=== PATIENT | male | born 1950 | race Caucasian/White ===

== ENCOUNTER 2022-12-04 11:59 | Emergency (ER) | payer MEDICARE, OTHER, SELFPAY ==
[2022-12-04 12:13] VITALS: BP 129/71; PULSE 65; RESP 16; TEMP 37.1; O2SAT 97; BMI 28.8
== END 2022-12-04 13:54 | disposition left against medical advice (07) ==
PROVIDERS: Emergency Provider Emergency Medicine; PCP Nurse Practitioner Family
DX: Z53.21 Procedure and treatment not carried out due to patient leaving prior to being seen by health care provider (principal)

== ENCOUNTER 2022-12-04 14:48 | Outpatient (OUT) | payer MEDICARE, OTHER, SELFPAY ==
--- NOTE | 2022-12-04 14:54 | XR_ITS ---
The [address] [address] Patient Name: ARCELIA FRANCISCO MRN: [id number] date: 1950 Sex: M Assigned Patient Location: RAD Current Patient Location: ED.MAIN Accession/Order Number: [id number] Exam Date: 12/04/2022 15:08 Report Date: 12/05/2022 05:15 At the request of: FLOR MUNIZ Procedure: XR thoracic spine 2V EXAM: XR thoracic spine 2V 12/04/2022 3:08 PM EDT OH001 CLINICAL STATEMENT: Pain in thoracic spine M54.6 COMPARISON: No prior studies are available at the time of dictation. TECHNIQUE: AP and lateral radiographs of the thoracic spine are submitted. FINDINGS: There is normal anatomic alignment. There is no acute fracture or dislocation. Multilevel degenerative changes are noted. The pedicles are intact. IMPRESSION: Degenerative changes. No acute fracture and/or dislocation. Electronically authenticated by: NACHO CHANDRA Date: 12/05/2022 05:15
== END 2022-12-04 14:49 ==
LOC: RAD 14:49
PROVIDERS: PCP Nurse Practitioner Family; Visit Provider Nurse Practitioner Family
DX: M54.6 Pain in thoracic spine (principal)
CPT/HCPCS: 72070

== ENCOUNTER 2022-12-24 07:42 | Outpatient (RCR) | payer MEDICARE, OTHER, SELFPAY | END 2022-12-25 11:36 | disposition home or self-care (01) | LOC: PT 07:42 | PROVIDERS: PCP Nurse Practitioner Family; Visit Provider Family Medicine | DX: M54.6 Pain in thoracic spine (principal); M54.59 Other low back pain ==

== ENCOUNTER 2023-12-03 08:07 | Outpatient (OUT) | payer MEDICARE, OTHER, SELFPAY ==
--- NOTE | 2023-12-03 08:17 | XR_ITS ---
The [address] [address] Patient Name: ARCELIA FRANCISCO MRN: [id number] date: 1950 Sex: M Assigned Patient Location: [facility] Current Patient Location: Accession/Order Number: [id number] Exam Date: 12/03/2023 08:28 Report Date: 12/04/2023 09:24 At the request of: FLOR MUNIZ Procedure: XR elbow LT min 3V PROCEDURE: XR elbow LT min 3V HISTORY: Left Elbow Pain M25.522 ; pain and swelling since falling 2 months ago COMPARISON: None. FINDINGS: BONES:Large periarticular degenerative osteophytes along the majority the articular margins. Possible fractured degenerative osteophyte projecting from superior medial margin of the ulnar articular surface. SOFT TISSUES:Posterior medial soft tissue swelling. EFFUSION:None visible. OTHER: Negative. XR/XR elbow LT min 3V IMPRESSION: 1. 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 2. Possible fracture of the degenerative osteophyte projecting from the medial margin of the ulnar articular surface. 3. Posterior soft tissue swelling suggestive of bursitis. Electronically authenticated by: MEGAN CHRISTIANSON Date: 12/04/2023 09:24
--- OUTSIDE RECORDS SUMMARY | 2023-12-03 08:17 | XMS_ITS | CCD ---
Author Organization [facility] Care Team Providers Care Emergency Medical Technician Basic Name Role Phone Isauro Poe Primary Care Provider [phone] EDY VILLALPANDO Attending Unavailable EDY VILLALPANDO Referring Unavailable ISAURO POE Primary Care Unavailable VIAEDY Meeks Attending Unavailable BRIANNA, EDY VELASCO Referring Unavailable ISAURO POE Primary Care Unavailable BRIANNA, EDY VELASCO Attending Unavailable EDY VILLALPANDO Referring Unavailable ISAURO POE Primary Care Unavailable Isauro Poe Primary Care Provider [phone] Isauro Poe MD Primary Care Provider Isauro Poe MD Primary Care Provider Isauro Poe MD Primary Care Provider Wai Matson Jr. Unavailable Isauro Poe Primary Care Provider Isauro Poe MD Primary Care Provider Isauro Poe MD Primary Care Provider [phone] ZEINAB LOMELI Referring Unavailable ISAURO POE Primary Care Unavailable ZEINAB LOMELI Referring Unavailable ISAURO POE Primary Care Unavailable DANETTE HOOPER Referring Unavailable ISAURO POE Primary Care Unavailable ZEINAB LOMELI Referring Unavailable ISAURO POE Primary Care Unavailable Mundo Dang Unavailable Wai Matson Jr. Unavailable Isauro Poe MD Primary Care Provider NANCI CARVAJAL Referring Unavailable ISAURO POE Primary Care Unavailab NANCI Gruber Referring Unavailable ISAURO POE Primary Care Unavailab MD Zhou Mathis Attending Provider Dano Wai Unavailable Liliana LEGGETT, Isauro Leonard Primary Care Provider CRISTY, DANETTE Admitting Unavailable CRISTY, DANETTE Primary Care Unavailable CRISTY, DANETTE Consulting Unavailable CRISTY, DANETTE Attending Unavailable CRISTY, DANETTE Primary Care Unavailable CRISTY, DANETTE Consulting Unavailable CRISTY, DANETTE Attending Unavailable CRISTY, DANETTE Admitting Unavailable FEIDER, ALENA Consulting Unavailable CRISTY, DANETTE Primary Care Unavailable CRISTY, DANETTE Consulting Unavailable CRISTY, DANETTE Attending Unavailable CRISTY, DANETTE Admitting Unavailable CRISTY, ADNETTE Primary Care Unavailable ACOSTA ., MR ALEJANDRO Consulting Unavailable NATALEE NGUYEN Admitting Unavailable NATALEE NGUYEN Attending Unavailable NO FAMILY, PHYSICIAN Primary Care Provider Unava ilable MD Zhou Fischer Attending Provider [phone] NO FAMILY, PHYSICIAN Primary Care Provider Unava ilable MD Zhou Fischer Attending Provider [phone] NO FAMILY, PHYSICIAN Primary Care Provider Unava ilable MD Zhou Fischer Attending Provider [phone] NALINI Muniz Danette Beatris Primary Care Provider MD Mundo Dang Attending Provider [phone] MD Zhou Fischer Attending Provider [phone] NALINI Muniz Beatris Primary Care Provider MD Zhou Fischer Attending Provider [phone] AILYN PATINO Attending UnavailAILYN Loaiza Referring UnavailAILYN Loaiza Referring UnavailAILYN Loaiza Attending UnavailIsauro Byrd MD Primary Care Provider ISAURO POE Primary Care Unavailable SABINA RED Attending Unavailable NALINI Muniz Beatris Primary Care Provider MD Zhou Fischer Attending Provider Amado, Zhou Attending Unavailable Haladay, Zhou Admitting Unavailable NO FAMILY, PHYSICIAN Primary Care Unavailable Haladay, Zhou Admitting Unavailable Haladay, Zhou Attending Unavailable NO FAMILY, PHYSICIAN Primary Care Unavailable Haladay, Zhou Admitting Unavailable Haladay, Zhou Attending Unavailable NO FAMILY, PHYSICIAN Primary Care Unavailable Cristy, Danette Beatris Primary Care Unavailable Haladay, Hzou Attending Unavailable Haladay, Zhou Admitting Unavailable Haladay, Zhou Attending Unavailable Haladay, Zhou Admitting Unavailable NO FAMILY, PHYSICIAN Primary Care Unavailable Mundo Dang Attending Unavailmegha e Cristy, Danette Beatris Primary Care Unavailable LaurenceMundo evans R Admitting Unavailabl e Cristy, Danette Beatris Primary Care Unavailable Haladay, Zhou Attending Unavailable Haladay, Zhou Admitting Unavailable Cristy, Danette Beatris Primary Care Unavailable Haladay, Zhou Attending Unavailable Haladay, Zhou Admitting Unavailable Haladay, Zhou Attending Unavailable Cristy, Danette Beatris Primary Care Unavailable Haladay, Zhou Admitting Unavailable Haladay, Zhou Attending Unavailable Haladay, Zhou Admitting Unavailable NO FAMILY, PHYSICIAN Primary Care Unavailable Liliana LEGGETT, Isauro Leonard Primary Care Provider NANCI CARVAJAL Attending Unavailable ISAURO POE Primary Care Unavailab NANCI Gruber Attending Unavailable ISAURO POE Primary Care Unavailab NANCI Gruber Referring Unavailable NANCI CARVAJAL Attending Unavailable ISAURO POE Primary Care Unavailab ISAURO Hull Primary Care Unavailab NANCI Gruber Referring Unavailable Allergies Allergy Classification Reported Allergen(s) Allergy Type Date of Onset Reaction(s) Facility Opioid Agonists (3 sources) Meperidine; Translations: [MEPERIDINE (PF)] Drug Allergy 05-29-2011 Anaphylaxis [facility] (20 sources) Meperidine; Translations: [MEPERIDINE (PF)] Drug Allergy 05-29-2011 Anaphylaxis [facility] (12 sources) Meperidine; Translations: [Demerol] Drug Allergy 02-27-2001 [facility] [place] (4 sources) Meperidine Drug Allergy Unknown [facility] Other (1 source) Meperidine Drug Allergy 07-21-2023 [facility] Medications Current Medications Medication Drug Class(es) Dates Sig (Normalized) Sig (Original) acetaminophen 500 mg oral tablet (20 sources) take 1 tablet by mouth every six hours as needed acetaminophen (TYLENOL) 500 MG tablet Take 1 (one) tablet (500 mg total) by mouth every 6 (six) hours as needed . 0 Active Amitriptyline (1 source) Tricyclic Antidepressant Amitriptyline HCl Active amLODIPine 10 mg oral tablet (20 sources) Dihydropyridine Calcium Channel Ramonita End: 10-20-2023 take 1 tablet by mouth once daily amLODIPine (NORVASC) 10 mg tablet Take 10 mg by mouth once daily. 0 Active amLODIPine Besyl ate Active Comment on above: Take 10 mg by mouth once daily. amLODIPine 10 mg / benazepril hydrochloride 20 mg oral capsule (5 sources) Dihydropyridine Calcium Channel Ramonita, Angiotensin Converting Enzyme Inhibitor Start: 05-06-20 take 1 capsule by mouth once daily amLODIPine-benazepr il (LOTREL) 10-20 mg per capsule Take 1 (one) capsule by mouth daily . 0 08/10/2023 Active aspirin 81 mg oral tablet (11 sources) Platelet Aggregation Inhibitor, Nonsteroidal Anti-inflammatory Drug take 1 tablet by mouth once daily aspirin 81 MG tablet Take 81 mg by mouth daily. 0 Active clotrimazole 10 mg/ml topical solution (14 sources) Azole Antifungal Start: 12-24-19 19 clotrimazole (LOTRIMIN) 1 % external solution diclofen jmp-rkypsg-c-jane-ment (NUDROXIPAK DSDR-75) 75 mg-0.025 %- 25 %-6 % kit (6 sources) diclofen lxg-racojg-b-jane-me nt (NUDROXIPAK DSDR-75) 75 mg-0.025 %- 25 %-6 % kit twice daily. Take diclofenac 1 tablet (75 mg) by mouth 2 daily. Apply capsaicin-methyl salicylate-menthol liquid topically to the affected area as directed (no more than 4 times per day). 0 Active Comment on above: twice daily. Take di clofenac 1 tablet (75 mg) by mouth 2 daily. Apply capsaicin-methyl salicylate-menthol liquid topically to the affected area as directed (no more than 4 times per day). diclofenac sodium 75 mg delayed release oral tablet (9 sources) Nonsteroidal Anti-inflammatory Drug Start: 05-06-20 take 75 mg by mouth once daily Diclofenac Sodium Active 75 MG PO Daily May 06, 2023 1:00am End: 10-20-2023 diclofenac sodium 1% (VOLTAR EN) 1 % Gel APPLY 2 G TOPICALLY IN THE MORNING AND 2 G IN THE EVENING AND 2 G BEFORE BEDTIME. 0 10/20/2023 Discontinued (Therapy completed) take [address] [facility] every twenty-four hours Diclofenac Sodium 75 MG 2 tablets Oral once a day for 30 Days Active finasteride 5 mg oral tablet (20 sources) 5-alpha Reductase Inhibitor Start: 05-06-2023 take 5 mg by mouth once daily Finasteride Active 5 MG PO Daily May 06, 2023 1:00am Finasteride Acti ve Comment on above: Take 5 mg by mouth o nce daily. folic acid 1 mg oral tablet (6 sources) Start: 05-06-2023 take 1 mg by mouth once daily Folic Acid Active 1 MG PO Daily May 06, 2023 1:00am Folic Acid Activ e gemfibrozil 600 mg oral tablet (20 sources) Peroxisome Proliferator Receptor alpha Agonist take 1 tablet by mouth once daily gemfibrozil (LOPID) 600 mg tablet Take 600 mg by mouth once daily. 0 Active End: 10-20-2023 take 1 tablet by mouth twice daily before mealtime gemfibroziL (LOPID) 600 MG tablet Take 1 (one) tablet (600 mg total) by mouth 2 (two) times a day before meals . 0 10/20/2023 Discontinued (Therapy completed) Comment on above: Take 600 mg by mouth once daily. gluc najera/chondro najera A/vit C/Mn (GLUCOSAMINE 1500 COMPLEX ORAL) (20 sources) gluc najera/chondro najera A/vit C/Mn (GLUCOSAMINE 1500 COMPLEX ORAL) Take by mouth. 0 Active gluc najera/chondro najera A/vit C/Mn (GLUCOSAMINE 1500 COMPLEX ORAL) Take by mouth . 0 Active Comment on above: Take by mouth. Glucosamine (4 sources) Glucosamine Acti ve Glucosamine-Chondroit- Vit C-Mn (4 sources) Start: 05-06-2023 take 1 capsule by mouth once daily Glucosamine-Chondroit -Vit C-Mn Active 1 CAP PO Daily May 06, 2023 1:00am Start: 05-06-2023 take 1 capsule by mo uth once daily Ptlcmebryjp-Adgiqdayr-Kkl C-Mn Active 1 CAP PO Daily May 06, 2023 12:00am Frnleqyoidw-Otlarubqo-Lag C-Mn (GLUCOSAMINE 1500 COMPLEX PO) (11 sources) Glucosamine-Xavier droit-Vit C-Mn (GLUCOSAMINE 1500 COMPLEX PO) Take 1,500 mg by mouth 2 times daily. 0 Active gramicidin 0.025 mg/ml / neomycin 1.75 mg/ml / polymyxin b [id number] unt/ml ophthalmic solution (11 sources) Aminoglycoside Antibacterial, Polymyxin-class Antibacterial Sta rt: 8 take 1 drop(s) into the eye(s) four times daily lapgtyui-mfcxljibx-vgwzpjtsb n (NEOSPORIN) 1.75-77670-.[address] 1 drop into both eyes 4 times daily 1 Bottle 0 09/12/2017 Active hydrocortisone 10 mg/ml / neomycin 3.5 mg/ml / polymyxin b 38206 unt/ml otic solution (14 sources) Aminoglycoside Antibacterial, Polymyxin-class Antibacterial, Corticosteroid Sta rt: 9 mfywmimy-vzrcsvpqx-uvbskfngl isone (CORTISPORIN) otic solution hydroxychloroquine sulfate 200 mg oral tablet (12 sources) Antimalarial, Antirheumatic Agent Sta rt: 3 take 200 mg by mouth once daily Hydroxychloroquine Active 200 MG PO Daily May 06, 2023 1:00am take 1 tablet by mouth twice arnaldo ly hydrOXYchloroQUINE (PLAQUENIL) 200 mg tablet Take 200 mg by mouth twice daily. 0 Active Comment on above: Take 200 mg by mouth twice daily. iv contrast (will be provided with radiology test) (2 sources) Start: 05-02-2022 End: 05-03-2022 iv contrast (will be provided with radiology test) CT Urogram WO/W Inject, intravenously, once for 1 dose.No IV access, insert saline lock prior to the beginning of sedation, infusion, injection of imaging exam. Discontinue saline lock post exam. If Pt. has a central line or IVAD, may access for administration according to line specific nursing protocol. Once exam is complete flush line and de-access according to line specific nursing protocol in the CT contrast administration guidelines link. 1 Each 0 05/02/2022 05/03/2022 Active Start: 04-03-2022 End: 04-04-2022 iv contrast (will be provide d with radiology test) Indications: Malignant neoplasm of urinary bladder, unspecified site (HCC) , History of bladder cancer CT Urogram WO/W Inject, intravenously, once for 1 dose.No IV access, insert saline lock prior to the beginning of sedation, infusion, injection of imaging exam. Discontinue saline lock post exam. If Pt. has a central line or IVAD, may access for administration according to line specific nursing protocol. Once exam is complete flush line and de-access according to line specific nursing protocol in the CT contrast administration guidelines link. 1 Each 0 04/03/2022 04/04/2022 Active Comment on above: CT Urogram WO/W Inje ct, intravenously, once for 1 dose.No IV access, insert saline lock prior to the beginning of sedation, infusion, injection of imaging exam. Discontinue saline lock post exam. If Pt. has a central line or IVAD, may access for administration according to line specific nursing protocol. Once exam is complete flush line and de-access according to line specific nursing protocol in the CT contrast administration guidelines link. losartan potassium 100 mg oral tablet (20 sources) Angiotensin 2 Receptor Ramonita End: 10-20-2023 take 1 tablet by mouth once daily losartan (COZAAR) 100 mg tablet Take 100 mg by mouth once daily. 0 [facility] Comment on above: Take 100 mg by mouth once daily. meloxicam 15 mg oral tablet (9 sources) Nonsteroidal Anti-inflammatory Drug Start: 02-08-20 End: 02-08-20 take 1 tablet by mouth once daily meloxicam (MOBIC) 15 MG tablet Indications: Spondylolisthesis of lumbar region Take 1 (one) tablet (15 mg total) by mouth daily . 90 tablet 3 02/08/2020 02/07/2021 Active methotrexate 2.5 mg oral tablet (9 sources) Folate Analog Metabolic Inhibitor Start: 05-06-20 take 12.5 mg by mouth every week Methotrexate Sodium Active 12.5 MG PO every week May 06, 2023 1:00am take 2.5 mg by mouth five times daily METHOTREXATE ORAL Take 2.5 mg by mouth five times daily. 0 Active methoTREXate (TR EXALL) 2.5 MG tablet TAKE 5 TABLETS BY MOUTH EVERY WEEK ONCE A WEEK REMEBER YOUR STANDING LABS 0 Active Comment on above: Take 2.5 mg by mouth five times daily. jeigylvz-vsw-oqumtml sulfate (One Daily Multi-Vit w-Mineral) 4.5 mg iron Tab (9 sources) msqayynq-fbc-jgq hamlet sulfate (One Daily Multi-Vit w-Mineral) 4.5 mg iron Tab Take by mouth . 0 Active multivit-minerals/FA/l ycopene (ONE-A-DAY MEN'S ORAL) (14 sources) multivit-mineral s/FA/ lycopene (ONE-A-DAY MEN'S ORAL) Take by mouth. 0 Active Comment on above: Take by mouth. Multivitamin preparation (7 sources) Start: 05-06-2023 take 1 tablet by mouth once daily Multivitamin Active 1 TAB PO Daily May 06, 2023 1:00am Start: 05-06-2023 take 1 tablet by sylvester th once daily Multivitamin Active 1 TAB PO Daily May 06, 2023 12:00am Multivitamin Act macho omeprazole 20 mg delayed release oral capsule (20 sources) Proton Pump Inhibitor Start: 05-06-2023 take 20 mg by mouth once daily Omeprazole Active 20 MG PO Daily May 06, 2023 1:00am omeprazole (PRIL OSEC) 40 MG capsule Take 20 mg by mouth daily . 0 Active Omeprazole Activ e take 1 capsule by mouth once arnaldo ly omeprazole (PRILOSEC) 40 MG capsule Take 40 mg by mouth daily. 0 Active Comment on above: Take 20 mg by mouth once daily. predniSONE 20 mg oral tablet (7 sources) Start: 11-11-2021 take 2 tablets by mouth once daily at mealtime predniSONE (DELTASONE) 20 MG tablet Indications: Viral upper respiratory tract infection with cough Take 2 tablets by mouth daily x 5 days. Take with food. 10 tablet 0 11/11/2021 Active predniSONE EC 5 mg Delayed Release Tab Take 5 mg by mouth as needed. 0 Active Comment on above: Take 5 mg by mouth a s needed. pyridoxine HCl, vitamin B6, (VITAMIN B-6 ORAL) (20 sources) pyridoxine HCl, vitamin B6, (VITAMIN B-6 ORAL) Take 100 mg by mouth. 0 Active pyridoxine HCl, vitamin B6, (VITAMIN B-6 ORAL) Take 100 mg by mouth . 0 Active Comment on above: Take 100 mg by mouth . 1000 ml sodium chloride 9 mg/ml injection (2 sources) Start: End: inject 1 dose intravenously once 0.9 % sodium chloride (NACL 0.9%) infusion Inject 200 mL/hr intravenously one time only for 1 dose. Administer at rate defined per CT contrast administration specifications. To be provided with radiology test. 1 Each 0 05/02/2022 05/02/2022 Active Start: 04-03-2022 End: 04-03-2022 inject 1 dose intravenously once 0.9 % sodium chloride (NACL 0.9%) infusion Indications: Malignant neoplasm of urinary bladder, unspecified site (HCC) , History of bladder cancer Inject 200 mL/hr intravenously one time only for 1 dose. Administer at rate defined per CT contrast administration specifications. To be provided with radiology test. 1 Each 0 04/03/2022 04/03/2022 Active Comment on above: Inject 200 mL/hr int ravenously one time only for 1 dose. Administer at rate defined per CT contrast administration specifications. To be provided with radiology test. vitamin B12 (3 sources) Vitamin B12 Vitamin B12 Acti ve Vitamin B6 (4 sources) Vitamin B6 Activ e Completed/Discontinued Medications Medication Drug Class(es) Dates Sig (Normalized) Sig (Original) bcg 50 mg in NaCl 0.9% 50 mL (1 source) Start: 10-24-2021 End: 10-24-2021 bcg 50 mg in NaCl 0.9% 50 mL lidocaine hydrochloride 0.02 mg/mg topical gel (9 sources) Antiarrhythmic, Amide Local Anesthetic Start: 12-01-2023 End: 12-01-2023 lidocaine urojet 2 % 11 mL topical gel (GLYDO) Start: 06-02-2023 End: 06-02-2023 lidocaine urojet 2 % 11 mL t opical gel (GLYDO) Start: 10-21-2022 End: 10-21-2022 lidocaine urojet 2 % 11 mL t opical gel (GLYDO) Start: 07-08-2022 End: 07-08-2022 lidocaine urojet 2 % 11 mL t opical gel (XYLOCAINE, GLYDO) Start: 04-01-2022 End: 05-01-2022 lidocaine urojet 2 % 11 mL t opical gel (XYLOCAINE, GLYDO) Start: 10-24-2021 End: 10-24-2021 lidocaine urojet 2 % 11 mL t opical gel (XYLOCAINE, GLYDO) naproxen sodium 220 mg oral capsule (20 sources) Nonsteroidal Anti-inflammatory Drug End: 10-20-2023 take 2 tablets by mouth twice daily naproxen sodium 220 mg cap Take 2 tablets by mouth 2 (two) times a day . 0 10/20/2023 Discontinued (Therapy completed) 1 ml triamcinolone acetonide 40 mg/ml injection (1 source) Corticosteroid Start: 08-15-2020 End: 08-15-2020 triamcinolone acetonide (KENALOG-40) injection 120 mg Problems Active Problems Problem Classification Problem Date Documented Da te Episodic/Chronic Abdominal hernia (1 source) Diaphragmatic hernia without obstruction or gangrene Episodic Cancer of bladder (20 sources) Malignant tumor of urinary bladder; Translations: [Malignant neoplasm of bladder, unspecified] Onset: 8 05-11-2018 Chronic Chronic obstructive pulmonary disease and bronchiectasis (12 sources) Chronic obstructive lung disease; Translations: [Chronic obstructive pulmonary disease, unspecified] Onset: 1 05-29-2011 Chronic Digestive congenital anomalies (8 sources) Esophageal diverticulum; 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] Onset: 2 Resolved: 2 Chronic Disorders of lipid metabolism (14 sources) Pure hypercholesterolemia; Translations: [Pure hypercholesterolemia, unspecified] Onset: 9 11-03-2018 Chronic Esophageal disorders (15 sources) Gastroesophageal reflux disease; Translations: [Gastro-esophageal reflux disease without esophagitis] Onset: 1 05-29-2011 Chronic Essential hypertension (5 sources) Essential (primary) hypertension; Translations: [Essential hypertension] Onset: 9 10-20-2023 Chronic Hyperplasia of prostate (15 sources) Benign prostatic hyperplasia; Translations: [Benign prostatic hyperplasia with lower urinary tract symptoms] Onset: 8 11-03-2018 Chronic Osteoarthritis (20 sources) Degenerative joint disease involving multiple joints; Translations: [Polyosteoarthritis, unspecified] Onset: 1 05-29-2011 Chronic Other acquired deformities (14 sources) Lumbar spondylolisthesis; Translations: [Spondylolisthesis of lumbar region] Onset: 0 02-07-2020 Other aftercare (4 sources) History of bladder neoplasm; Translations: [Encounter for follow-up examination after completed treatment for malignant neoplasm] Episodic Other connective tissue disease (1 source) Presence of right artificial hip joint; Translations: [PRESENCE RIGHT ARTIFICIAL HIP JOINT] Onset: 3 Chronic Other ear and sense organ disorders (14 sources) Hearing loss; Translations: [Unspecified hearing loss, unspecified ear] 05-14-2018 Chronic Other gastrointestinal disorders (7 sources) Dysphagia; Translations: [Dysphagia, unspecified] 05-06-2023 Episodic Other liver diseases (1 source) Fatty (change of) liver, not elsewhere classified; Translations: [FATTY CHANGE LIVER NEC] Onset: 3 Chronic Other non-traumatic joint disorders (1 source) Pain in right hip joint; Translations: [Pain in right hip] Episodic Other upper respiratory infections (1 source) Viral upper respiratory tract infection; Translations: [Acute upper respiratory infection, unspecified] Episodic Residual codes; unclassified (1 source) Sleep apnea; Translations: [Sleep apnea, unspecified] Onset: 2 11-11-2021 Chronic Residual codes; unclassified (2 sources) Obstructive sleep apnea syndrome; Translations: [Obstructive sleep apnea (adult) (pediatric)] Onset: 4 10-20-2023 Chronic Residual codes; unclassified (2 sources) Obstructive sleep apnea (adult) (pediatric); Translations: [Obstructive sleep apnea (adult) (pediatric)] Onset: 4 Chronic Residual codes; unclassified (2 sources) Pain; Translations: [Pain] Episodic Retinal detachments; defects; vascular occlusion; and retinopathy (3 sources) Traction detachment of right retina; Translations: [Traction detachment of retina, right eye] Onset: 4 10-20-2023 Episodic Rheumatoid arthritis and related disease (7 sources) Rheumatoid arthritis; Translations: [Rheumatoid arthritis, unspecified] Onset: 1 11-11-2021 Chronic Spondylosis; intervertebral disc disorders; other back problems (4 sources) Degeneration of lumbar intervertebral disc; Translations: [Other intervertebral disc degeneration, lumbar region] Chronic Unclassified (1 source) Other abnormal findings on cytological and histological examination of urine; Translations: [Abnormal urine cytology] Onset: 2 Unclassified (1 source) Rheumatoid arthritis with rheumatoid factor of multiple sites without organ or systems involvement; Translations: [Rheumatoid arthritis with rheumatoid factor of multiple sites without organ or systems involvement] Onset: 3 Past or Other Problems Problem Classification Problem Date Documented Da te Episodic/Chronic Cancer of bladder (8 sources) H/O: malignant neoplasm; Translations: [Personal history of malignant neoplasm of bladder] Onset: 05-15-2022 Episodic Complications of surgical procedures or medical care (14 sources) Subcutaneous emphysema resulting from a procedure; Translations: [Emphysema (subcutaneous) resulting from a procedure, initial encounter] Onset: 03-29-2018 11-03-2018 Episodic E Codes: Struck by; against (1 source) Striking against or struck by other objects, initial encounter; Translations: [STRIKING AGNST/STRUCK OTH OBJ INIT] Onset: 07-02-2022 Episodic Genitourinary symptoms and ill-defined conditions (20 sources) Microscopic hematuria; Translations: [Other microscopic hematuria] Onset: 04-08-2018 05-11-2018 Episodic Immunizations and screening for infectious disease (1 source) Raised antibody titer; Translations: [Raised antibody titer] Onset: 12-16-2022 Episodic Nonspecific chest pain (4 sources) Other chest pain; Translations: [OTHER CHEST PAIN] Onset: 04-02-2022 Episodic Other acquired deformities (3 sources) Lumbar spondylolisthesis; Translations: [Spondylolisthesis, lumbar region] Onset: 02-07-2020 02-07-2020 Episodic Other aftercare (1 source) Other group home (current) drug therapy; Translations: [[employer] CURRENT DRUG THERAPY] Onset: 07-02-2022 Episodic Other aftercare (1 source) Encounter for follow-up examination after completed treatment for malignant neoplasm; Translations: [Encounter for follow-up surveillance of bladder cancer] Onset: 01-20-2023 Episodic Other connective tissue disease (1 source) Arthrodesis status; Translations: [ARTHRODESIS STATUS] Onset: 07-02-2022 Episodic Other gastrointestinal disorders (4 sources) Dysphagia, unspecified; Translations: [Dysphagia, unspecified] Onset: 05-06-2023 Episodic Residual codes; unclassified (15 sources) Disorder of digestive tract; Translations: [Acquired absence of other specified parts of digestive tract] Onset: 04-14-2018 11-03-2018 Episodic Residual codes; unclassified (1 source) Acquired absence of other specified parts of digestive tract; Translations: [ACQ ABSENCE OTH PART DIGESTV TRACT] Onset: 07-02-2022 Episodic Spondylosis; intervertebral disc disorders; other back problems (16 sources) Backache; Translations: [Spinal stenosis of lumbar region] Onset: 02-07-2020 Resolved: 10-20-2023 02-07-2020 Episodic Superficial injury; contusion (4 sources) Contusion of right lower leg, initial encounter; Translations: [CONTUSION RIGHT LOWER LEG INITIAL] Onset: 06-30-2022 Episodic Results Test Name Value Interpretation [facility] CNOVon 12-01-2023 CNOV Office Visit (UROSMN) TIMUR FRANCISCO ([id number]) 1950 M Date Time Provider Department 12/01/23 2:30 PM NANCI CARVAJAL During your visit today, we recorded the following information about you: Anni Johnston LPN 12/01/2023 2:54 PM Signed Actual procedure/procedure scheduled: Yes Performing provider/scheduled provider: Yes Patient was roomed in: [facility] [place] Agent offered:Patient declines Patient arrived in the room at: 1430 Patient ready for procedure: 1444 The procedure started at ( Time Only): 1448 The procedure ended at: 1451 Was the procedure delayed: No The patient left the procedure room at: 1458 Anni Johnston LPN PRE PROCEDURE ASSESSMENT- Cysto Procedure Indication: Cystoscopy Latex Allergy: No Allergies reviewed and updated. Yes Heart valve replacement: No Joint replacement: Yes, hip 2009 Back Office UA otained: yes PROCEDURE PREP-Cysto Patient ID with two(2)identifiers verified by: Anni Johnston LPN Pre-Procedure Antibiotics: None taken at home nor prior to procedure Patient Prep: Betadine Scrub to perineum and placement of Sterile Drape. COMPLETED Anesthetic Given:10 cc 2% Lidocaine jelly Anni Johnston LPN UNIVERSAL PROTOCOL / SAFETY CHECKLIST Procedure to be performed: Cystoscopy Sign in Communication: Completed Time Out: Team Confirms the Correct Patient, Correct Procedure, Correct Site and Site Marking, Correct Position (if applicable). Sign Out Discussion: Completed Anni Johnston LPN POST PROCEDURE NURSE ASSESSMENT Present along with physician during procedure exam. Anni Johnston LPN Instruction sheet given and reviewed and patient verbalizes understanding: yes Post Procedure Antibiotic: As Prescribed Current pain intensity is 0 on a 0-10 pain scale. Anni Johnston LPN AMBULATORY PATIENT EDUCATION THE FOLLOWING WAS EVALUATED Motivation To Learn: Interested Family/Significant Other Support: Unable to assess - Family not present Cognitive Ability: Alert/Oriented Method of Instruction: Individual instruction Written instruction/Handouts Verbal instruction The Following Influencing Factors Were Barriers To This Education Session: None The Following Physical Limitations Were Barriers To This Education Session: None Instruction Provided To: Patient Shipping Technician Present: not applicable Discipline: Nursing Learning Topic: SURVIVAL SKILLS: Symptom Management Patient Evaluation: Verbalizes understanding: Yes Supplemental Material Given: Written Material Instructed By Anni Johnston LPN In Department Urology . Nanci Carvajal MD 12/01/2023 2:55 PM Signed PHYSICIANS NOTE: CYSTOSCOPY PROCEDURE: December 01, 2023 Sign In History and Physical Exam reviewed and is unchanged. Primary Diagnosis: Encounter for follow-up surveillance of bladder cancer (primary encounter diagnosis) History of bladder cancer Informed Consent Discussed: Yes. Risks, benefits, alternatives and personnel discussed with patient who consents to proceed. Sign in Communication: Completed Time Out: Team Confirms the Correct Patient, Correct Procedure; Cystoscopy, Correct Site and Site Marking (not applicable), Correct Position. Affirmation of Time Out: YES Sign Out: Sign Out Discussion: Completed Prior patient of Dr. 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 Urethral stricture: None The entire mucosa was examined. The scope was flexed in the dome of the bladder and used to look at the bladder in retroverted fashion. Findings: Prior resection sites noted The scope was removed with a repeat examination of the prostate and penile urethra done during removal. Plan - urine cytology - HOPS cystoscopy 6 months - Plan repeat CT urogram 12 months MD Preston Bonilla Carissa R, JANITOR CUSTODIAN 12/01/2023 2:55 PM Signed UNIVERSAL PROTOCOL / SAFETY CHECKLIST Procedure to be Performed: cystoscopy Sign In: A Moment of CARE was completed. Personnel directly involved with the procedure wore the appropriate PPE (Personal Protective Equipment). No special equipment needed. Patient/Surrogate Stated/Verified: PATIENT VERIFIED(optional for EMERGENT procedures): Patient name, Date of , Relevant allergies, and The intended procedure Time Out Communication: Intended patient and procedure match the source documents. Consent documented and matches the intended procedure. No r (more content not included)... Normal [facility] CYTOLOGY NON-GYNon CASE REPORT Normal [facility] Comment on above: Order Comment: Speci men Type: URINE SPECIMENOrdering Facility: [facility] Address: [address] [place] [address] Result Comment: [facility] Cytology Report Case: [id number] Authorizing Provider: Nanci Carvajal MD Collected: 12/01/2023 02:53 PM Ordering Location: Urology Received: 12/01/2023 06:21 PM Pathologist: Dilshad Lombardo MD Specimen: Urine, Midstream Performed By: #### C YTONON ####[facility] LABCLIA [id number] [place] [address] [place] CLINICAL HISTORY hx of bladder cancer Normal [facility] Comment on above: Order Comment: Speci men Type: URINE SPECIMENOrdering Facility: [facility] Address: [address] [place] [address] Performed By: #### Nury YTONON ####[facility] LABCLIA [id number] [place] [address] [place] FINAL DIAGNOSIS Normal [facility] Comment on above: Order Comment: Speci men Type: URINE SPECIMENOrdering Facility: [facility] Address: [address] [place] [address] Result Comment: A - Urine, Voided: Suspicious for high-grade urothelial carcinoma. Performed By: #### C YTONON ####[facility] LABCLIA [id number] [place] [address] [place] FINAL PERFORMING LAB Normal [facility] Comment on above: Order Comment: Speci men Type: URINE SPECIMENOrdering Facility: [facility] Address: [address] [place] [address] Result Comment: Tech nical component, table setter screening performed at [facility], [address] [place] [address] CLIA# [id number] Diagnostic interpretation performed at [facility], [address] [place], [place] [id number] CLIA# [id number] Guest Experience Captain: Reid Monteiro M.D. Performed By: #### C YTONON ####[facility] LABCLIA [id number] [place] [address] [place] GROSS DESCRIPTION Normal [facility] Comment on above: Order Comment: Speci men Type: URINE SPECIMENOrdering Facility: [facility] Address: [address] [place] [address] Result Comment: A. U rine, Midstream 80 cc clear yellow fluid . ThinPrep prepared. Performed By: #### C YTONON ####[facility] LABCLIA [id number] [place] [address] [place] UA DIP, URINE (POC)on 2023 BILIRUBIN UA (POCT) Negative Negative [facility] CLARITY UA (POCT) Clear [facility] COLOR UA (POCT) Yellow [facility] GLUCOSE UA (POCT) Negative Negative mg/dL [facility] Hemoglobin Ql (U) Negative Negative [facility] KETONE UA (POCT) Negative Negative mg/dL [facility] LEUKOCYTES UA (POCT) Negative [facility] NITRITE UA (POCT) Negative Negative [facility] PH UA (POCT) 7.0 4.5 - 8.0 [facility] Protein Ql (U) Negative Negative mg/dL [facility] SPECIFIC GRAVITY UA (POCT) 1.015 1.005 - 1.030 [facility] UROBILINOGEN UA (POCT) 0.2 [place] E.U./dL [facility] Location:[facility], [address] [place] [address], [address] [place] [address] POINT OF CARE [facility] Alanine aminotransferase [En zymatic activity/volume] in Serum or PlasmaOrdered By: Zhou Fischer on 10-29-2023 ALT [Catalytic activity/Vol] 20 U/L 7-52 [facility] Albumin [Mass/volume] in Ser um or Plasma by Bromocresol green (BCG) dye binding methoOrdered By: Zhou Fischer on 10-29-2023 Albumin BCG dye [Mass/Vol] 4.5 g/dL 3.5-5.7 [facility] Alkaline phosphatase [Enzyma tic activity/volume] in Serum or PlasmaOrdered By: Zhou Fischer on 10-29-2023 ALP [Catalytic activity/Vol] 75 U/L 34-104 [facility] Aspartate aminotransferase [ Enzymatic activity/volume] in Serum or PlasmaOrdered By: Zhou Fischer on 10-29-2023 AST [Catalytic activity/Vol] 25 U/L 13-39 [facility] Basophils Auto (Bld) [#/Vol] Ordered By: Zhou Fischer on 10-29-2023 Basophils (Bld) [#/Vol] 0.0 10*3/uL 0.0-0.2 [facility] Basophils/100 WBC Auto (Bld) Ordered By: Zhou Fischer on 10-29-2023 Basophils/100 WBC (Bld) 1.0 % . [facility] Bilirubin.direct [Mass/volum e] in Serum or PlasmaOrdered By: Zhou Fischer on 10-29-2023 Bilirubin.direct [Mass/Vol] 0.10 mg/dL 0.03-0.18 [facility] Bilirubin.total [Mass/volume ] in Serum or PlasmaOrdered By: Zhou Fischer on 10-29-2023 Bilirubin [Mass/Vol] 0.7 mg/dL 0.3-1.0 [facility] Complete Blood Count Auto Di ffon 10-29-2023 Basophils (Bld) [#/Vol] 0.0 10*3/uL Normal 0.0-0.2 [facility] Comment on above: Performed By: #### C BC, CREAT, HEPATIC, ESR #### [address] Basophils/100 WBC (Bld) 1.0 % Normal . [facility] Comment on above: Performed By: #### C BC, CREAT, HEPATIC, ESR #### [place] [address] [place] Eosinophils (Bld) [#/Vol] 0.1 10*3/uL Normal 0.0-0.45 [facility] Comment on above: Performed By: #### C BC, CREAT, HEPATIC, ESR #### [address] Eosinophils/100 WBC (Bld) 2.4 % Normal . [facility] Comment on above: Performed By: #### C BC, CREAT, HEPATIC, ESR #### [address] Erythrocyte distribution width (RBC) [Ratio] 14.2 % Normal 12.0-14.8 [facility] Comment on above: Performed By: #### C BC, CREAT, HEPATIC, ESR #### [address] Hematocrit (Bld) [Volume fraction] 40.8 % Normal 38.8-50.0 [facility] Comment on above: Performed By: #### C BC, CREAT, HEPATIC, ESR #### [place] [address] [place] Hemoglobin (Bld) [Mass/Vol] 14.1 g/dL Normal 13.0-17.0 [facility] Comment on above: Performed By: #### C BC, CREAT, HEPATIC, ESR #### [address] Lymphocytes (Bld) [#/Vol] 1.6 10*3/uL Normal 1.00-4.8 [facility] Comment on above: Performed By: #### C BC, CREAT, HEPATIC, ESR #### [address] Lymphocytes/100 WBC (Bld) 33.5 % Normal . [facility] Comment on above: Performed By: #### C BC, CREAT, HEPATIC, ESR #### [address] MCH (RBC) [Entitic mass] 31.8 pg Normal 27.5-35.2 [facility] Comment on above: Performed By: #### C BC, CREAT, HEPATIC, ESR #### [address] MCV (RBC) [Entitic vol] 92.1 fL Normal 83.5-101 [facility] Comment on above: Performed By: #### C BC, CREAT, HEPATIC, ESR #### [address] Mean Corpuscular HGB Conc 34.5 g/dL Normal 32.5-35.6 [facility] Comment on above: Performed By: #### C BC, CREAT, HEPATIC, ESR #### [address] Monocytes (Bld) [#/Vol] 0.6 10*3/uL Normal 0.0-0.8 [facility] Comment on above: Performed By: #### C BC, CREAT, HEPATIC, ESR #### [address] Monocytes/100 WBC (Bld) 11.4 % Normal . [facility] Comment on above: Performed By: #### C BC, CREAT, HEPATIC, ESR #### [address] Neutrophils (Bld) [#/Vol] 2.5 10*3/uL Normal 1.8-7.7 [facility] Comment on above: Performed By: #### C BC, CREAT, HEPATIC, ESR #### [address] Neutrophils/100 WBC (Bld) 51.7 % Normal . [facility] Comment on above: Performed By: #### C BC, CREAT, HEPATIC, ESR #### [address] NRBC% 0.2 /100{WBC} Normal 0-0.5 [facility] Comment on above: Performed By: #### C BC, CREAT, HEPATIC, ESR #### [address] Platelet mean volume (Bld) [Entitic vol] 8.3 fL Normal 6.6-10.1 [facility] Comment on above: Performed By: #### C BC, CREAT, HEPATIC, ESR #### [address] Platelets (Bld) [#/Vol] 324 10*3/uL Normal 150-450 [facility] Comment on above: Performed By: #### C BC, CREAT, HEPATIC, ESR #### [address] RBC (Bld) [#/Vol] 4.43 10*6/uL Normal 3.90-5.60 [facility] Comment on above: Performed By: #### C BC, CREAT, HEPATIC, ESR #### [address] WBC (Bld) [#/Vol] 4.9 10*3/uL Normal 4.1-10.5 [facility] Comment on above: Performed By: #### C BC, CREAT, HEPATIC, ESR #### [place] [address] [place] [id number] [facility] Creatinineon 10-29-2023 Creatinine [Mass/Vol] 0.83 mg/dL Normal 0.70-1.30 [facility] Comment on above: Performed By: #### C BC, CREAT, HEPATIC, ESR #### [address] GFR/1.73 sq M.predicted MDRD (S/P/Bld) [Vol rate/Area] mL/min/{1.73_m2} Normal [facility] Comment on above: Result Comment: PERF ORMED BY: [place] [address] PATHOLOGIST RV REPAIRER LIZANDRO HOFF M.D. Performed By: #### C BC, CREAT, HEPATIC, ESR #### [place] [id number] [facility] Creatinine [Mass/volume] in Serum or PlasmaOrdered By: Zhou Fischer on 10-29-2023 Creatinine [Mass/Vol] 0.83 mg/dL 0.70-1.30 [facility] Eosinophils Auto (Bld) [#/Vo l]Ordered By: Zhou Fischer on 10-29-2023 Eosinophils (Bld) [#/Vol] 0.1 10*3/uL 0.0-0.45 [facility] Eosinophils/100 WBC Auto (Bl d)Ordered By: Zhou Fischer on 10-29-2023 Eosinophils/100 WBC (Bld) 2.4 % . [facility] Erythrocyte Sedimentation Ra pennie 10-29-2023 ESR (Bld) [Velocity] 3 mm/h Normal 0-19 [facility] Comment on above: Result Comment: PERF ORMED BY: [place] [address] PATHOLOGIST RV REPAIRER LIZANDRO HOFF M.D. Performed By: #### C BC, CREAT, HEPATIC, ESR #### [place] [id number] [facility] Erythrocyte distribution wid th Auto (RBC) [Ratio]Ordered By: Zhou Fischer on 10-29-2023 Erythrocyte distribution width (RBC) [Ratio] 14.2 % 12.0-14.8 [facility] Erythrocyte sedimentation ra te by Photometric methodOrdered By: Zhou Fischer on 10-29-2023 ESR Photometric method (Bld) [Velocity] 3 mm/hr 0-19 [facility] Globulin Calc (S) [Mass/Vol] Ordered By: Zhou Fischer on 10-29-2023 Globulin (S) [Mass/Vol] 2.1 g/dL [facility] Hematocrit Auto (Bld) [Volum e fraction]Ordered By: Zhou Fischer on 10-29-2023 Hematocrit (Bld) [Volume fraction] 40.8 % 38.8-50.0 [facility] Hemoglobin [Mass/volume] in BloodOrdered By: Zhou Fischer on 10-29-2023 Hemoglobin (Bld) [Mass/Vol] 14.1 g/dL 13.0-17.0 [facility] Hepatic Panelon 10-29-2023 Albumin [Mass/Vol] 4.5 g/dL Normal 3.5-5.7 [facility] Comment on above: Performed By: #### C BC, CREAT, HEPATIC, ESR #### [facility] [address] Albumin/Globulin [Mass ratio] 2.1 {ratio} Normal [facility] Comment on above: Performed By: #### C BC, CREAT, HEPATIC, ESR #### [facility] [address] [place] [id number] [place] ALP [Catalytic activity/Vol] 75 U/L Normal 34-104 [facility] Comment on above: Performed By: #### C BC, CREAT, HEPATIC, ESR #### [facility] [address] [place] [id number] [place] ALT [Catalytic activity/Vol] 20 U/L Normal 7-52 [facility] Comment on above: Performed By: #### C BC, CREAT, HEPATIC, ESR #### [facility] [address] [place] [id number] [place] AST [Catalytic activity/Vol] 25 U/L Normal 13-39 [facility] Comment on above: Performed By: #### C BC, CREAT, HEPATIC, ESR #### [facility] [address] Bilirubin [Mass/Vol] 0.7 mg/dL Normal 0.3-1.0 [facility] Comment on above: Performed By: #### C BC, CREAT, HEPATIC, ESR #### [address] Bilirubin,Indirect 0.6 mg/dL Normal [facility] Comment on above: Performed By: #### C BC, CREAT, HEPATIC, ESR #### [address] Bilirubin.indirect [Mass/Vol] 0.10 mg/dL Normal 0.03-0.18 [facility] Comment on above: Performed By: #### C BC, CREAT, HEPATIC, ESR #### [address] Globulin (S) [Mass/Vol] 2.1 g/dL Normal T he [facility] Comment on above: Performed By: #### C BC, CREAT, HEPATIC, ESR #### [address] Protein [Mass/Vol] 6.6 g/dL Normal 6.4-8.9 [facility] Comment on above: Performed By: #### C BC, CREAT, HEPATIC, ESR #### [address] Leukocytes [#/volume] correc basim for nucleated erythrocytes in Blood by Automated counOrdered By: Zhou Fischer on 10-29-2023 WBC corrected for nucl RBC Auto (Bld) [#/Vol] 4.9 10*3/uL 4.1-10.5 [facility] Lymphocytes Auto (Bld) [#/Vo l]Ordered By: Zhou Fischer on 10-29-2023 Lymphocytes (Bld) [#/Vol] 1.6 10*3/uL 1.00-4.8 [facility] Lymphocytes/100 WBC Auto (Bl d)Ordered By: Zhou Fischer on 10-29-2023 Lymphocytes/100 WBC (Bld) 33.5 % . [facility] MCH Auto (RBC) [Entitic mass ]Ordered By: Zhou Fischer on 10-29-2023 MCH (RBC) [Entitic mass] 31.8 pg 27.5-35.2 [facility] MCHC Auto (RBC) [Mass/Vol]Or dered By: Zhou Fischer on 10-29-2023 MCHC (RBC) [Mass/Vol] 34.5 g/dL 32.5-35.6 [facility] MCV Auto (RBC) [Entitic vol] Ordered By: Zhou Fischer on 10-29-2023 MCV (RBC) [Entitic vol] 92.1 fL 83.5-101 [facility] Monocytes Auto (Bld) [#/Vol] Ordered By: Zhou Fischer on 10-29-2023 Monocytes (Bld) [#/Vol] 0.6 10*3/uL 0.0-0.8 [facility] Monocytes/100 WBC Auto (Bld) Ordered By: Zhou Fischer on 10-29-2023 Monocytes/100 WBC (Bld) 11.4 % . [facility] Neutrophils Auto (Bld) [#/Vo l]Ordered By: Zhou Fischer on 10-29-2023 Neutrophils (Bld) [#/Vol] 2.5 10*3/uL 1.8-7.7 [facility] Neutrophils/100 WBC Auto (Bl d)Ordered By: Zhou Fischer on 10-29-2023 Neutrophils/100 WBC (Bld) 51.7 % . [facility] No Panel InformationOrdered By: Zhou Fischer on 10-29-2023 Estimated GFR (CKD-EPI) > 60.0 mL/Min [facility] Creatinine Clearance (Chem N/A [facility] Nucleated erythrocytes [Pres ence] in Blood by Automated countOrdered By: Zhou Fischer on 10-29-2023 Nucleated RBC Auto Ql (Bld) 0.2 /100{WBC} 0-0.5 [facility] Platelet mean volume Auto (B ld) [Entitic vol]Ordered By: Zhou Fischer on 10-29-2023 Platelet mean volume (Bld) [Entitic vol] 8.3 fL 6.6-10.1 [facility] Platelets Auto (Bld) [#/Vol] Ordered By: Zhou Fischer on 10-29-2023 Platelets (Bld) [#/Vol] 324 10*3/uL 150-450 [facility] Protein [Mass/volume] in Ser um or PlasmaOrdered By: Zhou Fischer on 10-29-2023 Protein [Mass/Vol] 6.6 g/dL 6.4-8.9 [facility] RBC Auto (Bld) [#/Vol]Ordere d By: Zhou Fischer on 10-29-2023 RBC (Bld) [#/Vol] 4.43 10*6/uL 3.90-5.60 [facility] Serum or plasma albumin/glob ulin mass ratioOrdered By: Zhou Fischer on 10-29-2023 Albumin/Globulin [Mass ratio] 2.1 {ratio} [facility] Serum or plasma non-glucuron idated bilirubin measurement (mass/volume)Ordered By: Zhou Fischer on 10-29-2023 Bilirubin.indirect [Mass/Vol] 0.6 mg/dL [facility] WBC Auto (Bld) [#/Vol]Ordere d By: Zhou Fischer on 10-29-2023 WBC (Bld) [#/Vol] 4.9 10*3/uL 4.1-10.5 [facility] ECG 12 Leadon 10-20-2023 Atrial Rate [facility] P [facility] P-R Interval [facility] Q-T Interval [facility] Q-T Interval (corrected) [facility] QRS Duration [facility] QTC Calculation (Bezet) [facility] T [facility] Ventricular Rate [facility] Alanine aminotransferase [En zymatic activity/volume] in Serum or PlasmaOrdered By: Zhou Fischer on 07-21-2023 ALT [Catalytic activity/Vol] 26 U/L 7-52 [facility] Albumin [Mass/volume] in Ser um or Plasma by Bromocresol green (BCG) dye binding methoOrdered By: Zhou Fischer on 07-21-2023 Albumin BCG dye [Mass/Vol] 4.4 g/dL 3.5-5.7 [facility] Alkaline phosphatase [Enzyma tic activity/volume] in Serum or PlasmaOrdered By: Zhou Fischer on 07-21-2023 ALP [Catalytic activity/Vol] 69 U/L 34-104 [facility] Aspartate aminotransferase [ Enzymatic activity/volume] in Serum or PlasmaOrdered By: Zhou Fischer on 07-21-2023 AST [Catalytic activity/Vol] 23 U/L 13-39 [facility] Basophils Auto (Bld) [#/Vol] Ordered By: Zhou Fischer on 07-21-2023 Basophils (Bld) [#/Vol] 0.0 10*3/uL 0.0-0.2 [facility] Basophils/100 WBC Auto (Bld) Ordered By: Zhou Fischer on 07-21-2023 Basophils/100 WBC (Bld) 0.7 % . [facility] Bilirubin.direct [Mass/volum e] in Serum or PlasmaOrdered By: Zhou Fischer on 07-21-2023 Bilirubin.direct [Mass/Vol] 0.10 mg/dL 0.03-0.18 [facility] Bilirubin.total [Mass/volume ] in Serum or PlasmaOrdered By: Zhou Fischer on 07-21-2023 Bilirubin [Mass/Vol] 0.5 mg/dL 0.3-1.0 [facility] Complete Blood Count Auto Di ffon 07-21-2023 Basophils (Bld) [#/Vol] 0.0 10*3/uL Normal 0.0-0.2 [facility] Comment on above: Performed By: #### C BC, CREAT, HEPATIC, ESR #### [facility] [address] [place] [address] [place] Basophils/100 WBC (Bld) 0.7 % Normal . T l[facility] Comment on above: Performed By: #### C BC, CREAT, HEPATIC, ESR #### [facility] [address] [place] [id number] [place] Eosinophils (Bld) [#/Vol] 0.1 10*3/uL Normal 0.0-0.45 [facility] Comment on above: Performed By: #### C BC, CREAT, HEPATIC, ESR #### [address] Eosinophils/100 WBC (Bld) 1.9 % Normal . [facility] Comment on above: Performed By: #### C BC, CREAT, HEPATIC, ESR #### [address] Erythrocyte distribution width (RBC) [Ratio] 13.7 % Normal 12.0-14.8 [facility] Comment on above: Performed By: #### C BC, CREAT, HEPATIC, ESR #### [address] Hematocrit (Bld) [Volume fraction] 40.1 % Normal 38.8-50.0 [facility] Comment on above: Performed By: #### C BC, CREAT, HEPATIC, ESR #### [address] Hemoglobin (Bld) [Mass/Vol] 14.0 g/dL Normal 13.0-17.0 [facility] Comment on above: Performed By: #### C BC, CREAT, HEPATIC, ESR #### [address] Lymphocytes (Bld) [#/Vol] 1.5 10*3/uL Normal 1.00-4.8 [facility] Comment on above: Performed By: #### C BC, CREAT, HEPATIC, ESR #### [address] Lymphocytes/100 WBC (Bld) 26.4 % Normal . [facility] Comment on above: Performed By: #### C BC, CREAT, HEPATIC, ESR #### [address] MCH (RBC) [Entitic mass] 31.8 pg Normal 27.5-35.2 [facility] Comment on above: Performed By: #### C BC, CREAT, HEPATIC, ESR #### [place] [id number] [place] MCV (RBC) [Entitic vol] 91.4 fL Normal 83.5-101 [facility] Comment on above: Performed By: #### C BC, CREAT, HEPATIC, ESR #### [address] Mean Corpuscular HGB Conc 34.8 g/dL Normal 32.5-35.6 [facility] Comment on above: Performed By: #### C BC, CREAT, HEPATIC, ESR #### [place] [address] [place] Monocytes (Bld) [#/Vol] 0.4 10*3/uL Normal 0.0-0.8 [facility] Comment on above: Performed By: #### C BC, CREAT, HEPATIC, ESR #### [address] Monocytes/100 WBC (Bld) 7.5 % Normal . [facility] Comment on above: Performed By: #### C BC, CREAT, HEPATIC, ESR #### [place] [address] [place] Neutrophils (Bld) [#/Vol] 3.5 10*3/uL Normal 1.8-7.7 [facility] Comment on above: Performed By: #### C BC, CREAT, HEPATIC, ESR #### [place] [address] [place] Neutrophils/100 WBC (Bld) 63.5 % Normal . [facility] Comment on above: Performed By: #### C BC, CREAT, HEPATIC, ESR #### [place] [address] [place] NRBC% 0.2 /100{WBC} Normal 0-0.5 The [facility] Comment on above: Performed By: #### C BC, CREAT, HEPATIC, ESR #### [address] Platelet mean volume (Bld) [Entitic vol] 8.3 fL Normal 6.6-10.1 The [facility] Comment on above: Performed By: #### C BC, CREAT, HEPATIC, ESR #### [facility] [address] Platelets (Bld) [#/Vol] 312 10*3/uL Normal 150-450 [facility] Comment on above: Performed By: #### C BC, CREAT, HEPATIC, ESR #### [address] RBC (Bld) [#/Vol] 4.39 10*6/uL Normal 3.90-5.60 The [facility] Comment on above: Performed By: #### C BC, CREAT, HEPATIC, ESR #### [facility] [address] WBC (Bld) [#/Vol] 5.5 10*3/uL Normal 4.1-10.5 The [facility] Comment on above: Performed By: #### C BC, CREAT, HEPATIC, ESR #### [address] Creatinineon 07-21-2023 Creatinine [Mass/Vol] 0.94 mg/dL Normal 0.70-1.30 [facility] Comment on above: Performed By: #### C BC, CREAT, HEPATIC, ESR #### [address] GFR/1.73 sq M.predicted MDRD (S/P/Bld) [Vol rate/Area] mL/min/{1.73_m2} Normal [facility] Comment on above: Result Comment: PERF ORMED BY: [place] [address] PATHOLOGIST RV REPAIRER LIZANDRO HOFF M.D. Performed By: #### C BC, CREAT, HEPATIC, ESR #### [address] Creatinine [Mass/volume] in Serum or PlasmaOrdered By: Zhou Fischer on 07-21-2023 Creatinine [Mass/Vol] 0.94 mg/dL 0.70-1.30 [facility] Eosinophils Auto (Bld) [#/Vo l]Ordered By: Zhou Fischer on 07-21-2023 Eosinophils (Bld) [#/Vol] 0.1 10*3/uL 0.0-0.45 [facility] Eosinophils/100 WBC Auto (Bl d)Ordered By: Zhou Fischer on 07-21-2023 Eosinophils/100 WBC (Bld) 1.9 % . [facility] Erythrocyte Sedimentation Ra pennie 07-21-2023 ESR (Bld) [Velocity] 2 mm/h Normal 0-19 [facility] Comment on above: Result Comment: PERF ORMED BY: [place] [address] PATHOLOGIST RV REPAIRER LIZANDRO HOFF M.D. Performed By: #### C BC, CREAT, HEPATIC, ESR #### [address] Erythrocyte distribution wid th Auto (RBC) [Ratio]Ordered By: Zhou Fischer on 07-21-2023 Erythrocyte distribution width (RBC) [Ratio] 13.7 % 12.0-14.8 [facility] Erythrocyte sedimentation ra te by Photometric methodOrdered By: Zhou Fischer on 07-21-2023 ESR Photometric method (Bld) [Velocity] 2 mm/hr 0-19 [facility] Globulin Calc (S) [Mass/Vol] Ordered By: Zhou Fischer on 07-21-2023 Globulin (S) [Mass/Vol] 2.3 g/dL [facility] Hematocrit Auto (Bld) [Volum e fraction]Ordered By: Zhou Fischer on 07-21-2023 Hematocrit (Bld) [Volume fraction] 40.1 % 38.8-50.0 [facility] Hemoglobin [Mass/volume] in BloodOrdered By: Zhou Fischer on 07-21-2023 Hemoglobin (Bld) [Mass/Vol] 14.0 g/dL 13.0-17.0 [facility] Hepatic Panelon 07-21-2023 Albumin [Mass/Vol] 4.4 g/dL Normal 3.5-5.7 [facility] Comment on above: Performed By: #### C BC, CREAT, HEPATIC, ESR #### [facility] [address] [place] [address] [place] Albumin/Globulin [Mass ratio] 1.9 {ratio} Normal [facility] Comment on above: Performed By: #### C BC, CREAT, HEPATIC, ESR #### [facility] [address] [place] [id number] [place] ALP [Catalytic activity/Vol] 69 U/L Normal 34-104 [facility] Comment on above: Performed By: #### C BC, CREAT, HEPATIC, ESR #### [facility] [address] [place] [address] [place] ALT [Catalytic activity/Vol] 26 U/L Normal 7-52 [facility] Comment on above: Performed By: #### C BC, CREAT, HEPATIC, ESR #### [facility] [address] [place] [address] [place] AST [Catalytic activity/Vol] 23 U/L Normal 13-39 [facility] Comment on above: Performed By: #### C BC, CREAT, HEPATIC, ESR #### [facility] [address] [place] [id number] [place] Bilirubin [Mass/Vol] 0.5 mg/dL Normal 0.3-1.0 [facility] Comment on above: Performed By: #### C BC, CREAT, HEPATIC, ESR #### [facility] [address] [place] [address] [place] Bilirubin,Indirect 0.4 mg/dL Normal The [facility] Comment on above: Performed By: #### C BC, CREAT, HEPATIC, ESR #### [facility] [address] [place] [id number] [place] Bilirubin.indirect [Mass/Vol] 0.10 mg/dL Normal 0.03-0.18 [facility] Comment on above: Performed By: #### C BC, CREAT, HEPATIC, ESR #### [facility] [address] [place] [phone] [place] Globulin (S) [Mass/Vol] 2.3 g/dL Normal T he [facility] Comment on above: Performed By: #### C BC, CREAT, HEPATIC, ESR #### [facility] [address] Protein [Mass/Vol] 6.7 g/dL Normal 6.4-8.9 [facility] Comment on above: Performed By: #### C BC, CREAT, HEPATIC, ESR #### [facility] [address] [place] [phone] [facility] Leukocytes [#/volume] correc basim for nucleated erythrocytes in Blood by Automated counOrdered By: Zhou Fischer on 07-21-2023 WBC corrected for nucl RBC Auto (Bld) [#/Vol] 5.5 10*3/uL 4.1-10.5 [facility] Lymphocytes Auto (Bld) [#/Vo l]Ordered By: Zhou Fischer on 07-21-2023 Lymphocytes (Bld) [#/Vol] 1.5 10*3/uL 1.00-4.8 [facility] Lymphocytes/100 WBC Auto (Bl d)Ordered By: Zhou Fischer on 07-21-2023 Lymphocytes/100 WBC (Bld) 26.4 % . [facility] MCH Auto (RBC) [Entitic mass ]Ordered By: Zhou Fischer on 07-21-2023 MCH (RBC) [Entitic mass] 31.8 pg 27.5-35.2 [facility] MCHC Auto (RBC) [Mass/Vol]Or dered By: Zhou Fischer on 07-21-2023 MCHC (RBC) [Mass/Vol] 34.8 g/dL 32.5-35.6 [facility] MCV Auto (RBC) [Entitic vol] Ordered By: Zhou Fischer on 07-21-2023 MCV (RBC) [Entitic vol] 91.4 fL 83.5-101 [facility] Monocytes Auto (Bld) [#/Vol] Ordered By: Zhou Fischer on 07-21-2023 Monocytes (Bld) [#/Vol] 0.4 10*3/uL 0.0-0.8 [facility] Monocytes/100 WBC Auto (Bld) Ordered By: Zhou Fischer on 07-21-2023 Monocytes/100 WBC (Bld) 7.5 % . [facility] Neutrophils Auto (Bld) [#/Vo l]Ordered By: Zhou Fischer on 07-21-2023 Neutrophils (Bld) [#/Vol] 3.5 10*3/uL 1.8-7.7 [facility] Neutrophils/100 WBC Auto (Bl d)Ordered By: Zhou Fischer on 07-21-2023 Neutrophils/100 WBC (Bld) 63.5 % . [facility] No Panel InformationOrdered By: Zhou Fischer on 07-21-2023 Estimated GFR (CKD-EPI) > 60.0 mL/Min [facility] Creatinine Clearance (Chem N/A [facility] Nucleated erythrocytes [Pres ence] in Blood by Automated countOrdered By: Zhou Fischer on 07-21-2023 Nucleated RBC Auto Ql (Bld) 0.2 /100{WBC} 0-0.5 [facility] Platelet mean volume Auto (B ld) [Entitic vol]Ordered By: Zhou Fischer on 07-21-2023 Platelet mean volume (Bld) [Entitic vol] 8.3 fL 6.6-10.1 [facility] Platelets Auto (Bld) [#/Vol] Ordered By: Zhou Fischer on 07-21-2023 Platelets (Bld) [#/Vol] 312 10*3/uL 150-450 [facility] Protein [Mass/volume] in Ser um or PlasmaOrdered By: Zhou Fischer on 07-21-2023 Protein [Mass/Vol] 6.7 g/dL 6.4-8.9 [facility] RBC Auto (Bld) [#/Vol]Ordere d By: Zhou Fischer on 07-21-2023 RBC (Bld) [#/Vol] 4.39 10*6/uL 3.90-5.60 [facility] Serum or plasma albumin/glob ulin mass ratioOrdered By: Zhou Fischer on 07-21-2023 Albumin/Globulin [Mass ratio] 1.9 {ratio} [facility] Serum or plasma non-glucuron idated bilirubin measurement (mass/volume)Ordered By: Zhou Fischer on 07-21-2023 Bilirubin.indirect [Mass/Vol] 0.4 mg/dL [facility] WBC Auto (Bld) [#/Vol]Ordere d By: Zhou Fischer on 07-21-2023 WBC (Bld) [#/Vol] 5.5 10*3/uL 4.1-10.5 [facility] CNOVon 06-02-2023 CNOV Office Visit (UROSMN) TIMUR FRANCISCO ([id number]) 1950 M Date Time Provider Department 06/02/23 1:20 PM NANCI CARVAJAL During your visit today, we recorded the following information about you: Brisa Nieto RN 06/02/2023 1:39 PM Signed Actual procedure/procedure scheduled: Yes Performing provider/scheduled provider: Yes Patient was roomed in: Q9- 06 County Extension Agent offered:Patient accepts, visit chaperoned by Patient arrived in the room at: 1310 Patient ready for procedure: 1320 The procedure started at ( Time Only): 1330 The procedure ended at: 1332 Was the procedure delayed: No The patient left the procedure room at: 1340 Brisa Nieto RN PRE PROCEDURE ASSESSMENT- Cysto Procedure Indication: Cystoscopy Latex Allergy: No Allergies reviewed and updated. Yes Heart valve replacement: No Joint replacement: Yes, over 2 years ago Back Office UA otained: yes PROCEDURE PREP-Cysto Patient ID with two(2)identifiers verified by: Brisa Nieto RN Pre-Procedure Antibiotics: None taken at home nor prior to procedure Patient Prep: Betadine Scrub to perineum and placement of Sterile Drape. COMPLETED Anesthetic Given:10 cc 2% Lidocaine jelly Brisa Nieto RN UNIVERSAL PROTOCOL / SAFETY CHECKLIST Procedure to be performed: Cystoscopy Sign in Communication: Completed Time Out: Team Confirms the Correct Patient, Correct Procedure, Correct Site and Site Marking, Correct Position (if applicable). Sign Out Discussion: Completed Brisa Nieto RN POST PROCEDURE NURSE ASSESSMENT Present along with physician during procedure exam. Brisa Nieto RN Instruction sheet given and reviewed and patient verbalizes understanding: yes Post Procedure Antibiotic: As Prescribed Current pain intensity is 0 on a 0-10 pain scale. Brisa Nieto RN AMBULATORY PATIENT EDUCATION THE FOLLOWING WAS EVALUATED Motivation To Learn: Interested Family/Significant Other Support: High - Very involved in pt care Cognitive Ability: Alert/Oriented Method of Instruction: Individual instruction Written instruction - handouts Verbal instruction The Following Influencing Factors Were Barriers To This Education Session: None The Following Physical Limitations Were Barriers To This Education Session: None Instruction Provided To: Patient Shipping Technician Present: not applicable Discipline: Nursing Learning Topic: SURVIVAL SKILLS: Complication Prevention Symptom Management Patient Evaluation: Verbalizes understanding: Yes Supplemental Material Given: Written Material Instructed By Brisa Nieto RN In Department Urology . Nanci Carvajal MD 06/02/2023 1:53 PM Signed PHYSICIANS NOTE: CYSTOSCOPY PROCEDURE: June 02, 2023 Sign In History and Physical Exam reviewed and is unchanged. Primary Diagnosis: Encounter for follow-up surveillance of bladder cancer (primary encounter diagnosis) History of bladder cancer Informed Consent Discussed: Yes. Risks, benefits, alternatives and personnel discussed with patient who consents to proceed. Sign in Communication: Completed Time Out: Team Confirms the Correct Patient, Correct Procedure; Cystoscopy, Correct Site and Site Marking (not applicable), Correct Position. Affirmation of Time Out: YES Sign Out: Sign Out Discussion: Completed Prior patient of Dr. 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/p TURBT 12/07/2019 - path benign S/p s/p cystoscopy w/ cysview, bilateral ureteral washings and retrograde pyelography, and bladder and prostatic fossa biopsies on 07/25/2020 - path CIS S/p BCG x6, finishing 10/01/2020 S/p maintenance BCG, finishing 03/05/2021 Last cystoscopy 01/20/2023 CT Urogram 05/2023 - pending Details of Procedure: After sterile prep and drape, the flexible cystoscope was placed through the urethra which was examined in its entirety. Urethral stricture: None The entire mucosa was examined. The scope was flexed in the dome of the bladder and used to look at the bladder in retroverted fashion. Findings: Prior resection site noted Normal UOs bilaterally No mucosal lesions or papillary tumors Prostate with TUR defect Normal urethra The scope was removed with a repeat examination of the prostate and penile urethra done during removal. Plan - urine cytology - f/u CT urogram - cystoscopy 6 months if all above WNL MD Gerson Bonilla Deanne, RN 06/02/2023 1:39 PM Signed UNIVERSAL PROTOCOL / SAFETY CHECKLIST Procedure to be Performed: cystoscopy Sign In: A Moment of CARE was completed. Personnel directly involved with the procedure wore the appropriate PPE (Personal Protective Equipment). Patient/Surrogate Stated/Verified: PATIENT VERIFIED(optional for EMERGENT procedures): Patient name, Date of , Relevant allergies, and The intended procedure Time Out Communication: Intended patient and procedure match (more content not included)... Normal [facility] CREATININE, BLOOD (POC)on Creatinine [Mass/Vol] 0.80 mg/dL 0.7 - 1.4 mg/dL [facility] eGFR (POCT) [facility] CT UROGRAM WO/W IVCONon CT UROGRAM WO/W IVCON * * *Final Report* * * DATE OF EXAM: Jun 02 2023 1:13PM [facility] 0560 - CT UROGRAM WO/W IVCON / PROCEDURE REASON: Malignant neoplasm of urinary bladder, unspecified site (HCC) * * * * Physician Interpretation * * * * EXAMINATION: CT ABDOMEN AND PELVIS WITHOUT AND WITH IV CONTRAST, INCLUDING EXCRETORY PHASE IMAGING (CT UROGRAM) 3D RECONSTRUCTIONS CLINICAL HISTORY: Bladder cancer status post TURBT and BCG treatments. Imaging surveillance. TECHNIQUE: CT urogram protocol including unenhanced, renal parenchymal phase and excretory phase renal imaging was obtained following IV contrast. Normal saline was also administered IV. No oral contrast was given. 3D image post-processing was performed and archived at the request of the referring physician, on the CT scanner workstation without concurrent physician supervision. MQ: CTU_2 Contrast: IV: 150 ml of Omnipaque 300 IV Saline: 150 ml of 0.9% NACL Solution Oral Contrast: None CT Radiation dose: Integrated dose-length product (DLP) for this visit = 2043 mGy*cm. CT Dose Reduction Employed: Automated exposure control (AEC) COMPARISON: CT urogram 05/15/2022 RESULT: Kidneys and urinary tract: Right: There are no renal calculi or masses. The opacified calices, renal pelvis and ureter are normal without dilation, filling defect, or stricture. Left: There are no renal calculi or masses. The opacified calices, renal pelvis and ureter are normal without dilation, filling defect, or stricture. Bladder: No filling defect, calculus, focal or diffuse wall thickening. Abdomen and Pelvis: Liver: No mass. Hepatic steatosis Biliary: No bile duct dilation. Cholecystectomy. Spleen: No mass. No splenomegaly. Calcified granulomata. Pancreas: No mass or duct dilation. Adrenals: No mass. GI tract: No dilation or wall thickening. Large colonic stool burden. Colonic diverticulosis. Appendectomy. Lymph nodes: No abdominal or pelvic lymphadenopathy. Mesentery/Peritoneum : No ascites. 1.0 cm calcified peritoneal loose body (6:110). Retroperitoneum: No mass. Vasculature: - Abdominal aorta and iliac arteries: Atherosclerotic calcifications without aneurysm. - Celiac and SMA: Patent without stenosis. - Portal venous system (SMV, splenic vein, portal vein and branches): Patent. - Hepatic veins: Patent. Pelvis: No mass, ascites or fluid collection. 0.9 cm rim calcified loose body in the pelvis (6:127). Bones and Soft Tissues: Degenerative changes with L5-1 spinal fusion and right hip arthroplasty. Grade 1 anterolisthesis of L4-5 and approximately 0.4 cm of retrolisthesis at L5-S1, stable. Lower thorax: Calcified granuloma in the right lower lobe. Manager English (topogram) images: No additional findings. IMPRESSION: No evidence of recurrent or metastatic disease in the abdomen or pelvis. Office Support Specialist: PSCB Transcribe Date/Time: Jun 02 2023 1:23P Dictated by : JOSSUE KOROMA, DO This examination was interpreted and the report reviewed and electronically signed by: SELENA TRAN MD on Jun 02 2023 2:34PM EST [id number] CN Normal [facility] CYTOLOGY NON-GYNon 3 CASE REPORT Normal [facility] Comment on above: Order Comment: Speci men Type: FLUID SPECIMEN Ordering Facility: [facility] Address: [address] [place] [address] Result Comment: [facility] Cytology Report Case: [id number] Authorizing Provider: Nanci Carvajal MD Collected: 06/02/2023 01:40 PM Ordering Location: Urology Received: 06/02/2023 04:28 PM Pathologist: Lillie Koroma MD Specimen: URINE VOIDED Performed By: #### C YTONON #### [facility] CLIA [id number] [address] [place] [address] [place] CLINICAL HISTORY h/o bladder cancer Normal [facility] Comment on above: Order Comment: Speci men Type: FLUID SPECIMEN Ordering Facility: [facility] Address: [address] [place] [address] Performed By: #### C YTONON #### [facility] CLIA [id number] [address] [place] [address] [place] DIAGNOSIS COMMENT Dr. Matilda Patel has also reviewed this case and agrees with the diagnosis. Normal [facility] Comment on above: Order Comment: Speci men Type: FLUID SPECIMEN Ordering Facility: [facility] Address: [address] [place] [address] Performed By: #### C YTONON #### [facility] CLIA [id number] [address] [place] [address] [place] FINAL DIAGNOSIS Normal [facility] Comment on above: Order Comment: Speci men Type: FLUID SPECIMEN Ordering Facility: [facility] Address: [address] [place] [address] Result Comment: A. U RINE VOIDED: Suspicious for high-grade urothelial carcinoma. Performed By: #### C YTONON #### [facility] CLIA [id number] [address] [place] [address] [place] FINAL PERFORMING LAB Normal [facility] Comment on above: Order Comment: Speci men Type: FLUID SPECIMEN Ordering Facility: [facility] Address: [address], [place] [address] Result Comment: Tech nical component, table setter screening performed at [facility], [address] [place] [address] CLIA# [id number] Diagnostic interpretation performed at [facility], [address] [place] [address] CLIA# [id number] Guest Experience Captain: Reid Monteiro M.D. Performed By: #### C YTONON #### [facility] CLIA [id number] [address] [place] [address] [place] GROSS DESCRIPTION A. URINE VOIDED Normal Cl [facility] Comment on above: Order Comment: Speci men Type: FLUID SPECIMEN Ordering Facility: [facility] Address: [address] [place] [address] Result Comment: 90 c c cloudy yellow fluid . ThinPrep prepared. Performed By: #### C YTONON #### [facility] CLIA [id number] [address] [place] [address] [place] Alanine aminotransferase [En zymatic activity/volume] in Serum or PlasmaOrdered By: Zhou Fischer on 05-25-2023 ALT [Catalytic activity/Vol] 36 U/L 7-52 [facility] Albumin [Mass/volume] in Ser um or Plasma by Bromocresol green (BCG) dye binding methoOrdered By: Zhou Fischer on 05-25-2023 Albumin BCG dye [Mass/Vol] 4.5 g/dL 3.5-5.7 [facility] Alkaline phosphatase [Enzyma tic activity/volume] in Serum or PlasmaOrdered By: Zhou Fischer on 05-25-2023 ALP [Catalytic activity/Vol] 66 U/L 34-104 [facility] Aspartate aminotransferase [ Enzymatic activity/volume] in Serum or PlasmaOrdered By: Zhou Fischer on 05-25-2023 AST [Catalytic activity/Vol] 25 U/L 13-39 [facility] Basophils Auto (Bld) [#/Vol] Ordered By: Zhou Fischer on 05-25-2023 Basophils (Bld) [#/Vol] 0.0 10*3/uL 0.0-0.2 [facility] Basophils/100 WBC Auto (Bld) Ordered By: Zhou Fischer on 05-25-2023 Basophils/100 WBC (Bld) 0.7 % . [facility] Bilirubin.direct [Mass/volum e] in Serum or PlasmaOrdered By: Zhou Fischer on 05-25-2023 Bilirubin.direct [Mass/Vol] 0.10 mg/dL 0.03-0.18 [facility] Bilirubin.total [Mass/volume ] in Serum or PlasmaOrdered By: Zhou Fischer on 05-25-2023 Bilirubin [Mass/Vol] 0.5 mg/dL 0.3-1.0 [facility] Complete Blood Count Auto Di ffon 05-25-2023 Basophils (Bld) [#/Vol] 0.0 10*3/uL Normal 0.0-0.2 [facility] Comment on above: Performed By: #### C BC, CREAT, HEPATIC, ESR #### [facility] [address] Basophils/100 WBC (Bld) 0.7 % Normal . T lina [facility] Comment on above: Performed By: #### C BC, CREAT, HEPATIC, ESR #### [facility] [address] [place] [address] [place] Eosinophils (Bld) [#/Vol] 0.1 10*3/uL Normal 0.0-0.45 [facility] Comment on above: Performed By: #### C BC, CREAT, HEPATIC, ESR #### [facility] [address] Eosinophils/100 WBC (Bld) 2.4 % Normal . [facility] Comment on above: Performed By: #### C BC, CREAT, HEPATIC, ESR #### [facility] [address] Erythrocyte distribution width (RBC) [Ratio] 13.8 % Normal 12.0-14.8 [facility] Comment on above: Performed By: #### C BC, CREAT, HEPATIC, ESR #### [place] [address] [place] Hematocrit (Bld) [Volume fraction] 41.8 % Normal 38.8-50.0 [facility] Comment on above: Performed By: #### C BC, CREAT, HEPATIC, ESR #### [address] Hemoglobin (Bld) [Mass/Vol] 14.3 g/dL Normal 13.0-17.0 [facility] Comment on above: Performed By: #### C BC, CREAT, HEPATIC, ESR #### [address] Lymphocytes (Bld) [#/Vol] 1.5 10*3/uL Normal 1.00-4.8 [facility] Comment on above: Performed By: #### C BC, CREAT, HEPATIC, ESR #### [address] Lymphocytes/100 WBC (Bld) 27.8 % Normal . [facility] Comment on above: Performed By: #### C BC, CREAT, HEPATIC, ESR #### [address] MCH (RBC) [Entitic mass] 31.5 pg Normal 27.5-35.2 [facility] Comment on above: Performed By: #### C BC, CREAT, HEPATIC, ESR #### [address] MCV (RBC) [Entitic vol] 92.4 fL Normal 83.5-101 T he [facility] Comment on above: Performed By: #### C BC, CREAT, HEPATIC, ESR #### [address] Mean Corpuscular HGB Conc 34.1 g/dL Normal 32.5-35.6 [facility] Comment on above: Performed By: #### C BC, CREAT, HEPATIC, ESR #### [address] Monocytes (Bld) [#/Vol] 0.5 10*3/uL Normal 0.0-0.8 [facility] Comment on above: Performed By: #### C BC, CREAT, HEPATIC, ESR #### [address] Monocytes/100 WBC (Bld) 9.6 % Normal . T he [facility] Comment on above: Performed By: #### C BC, CREAT, HEPATIC, ESR #### [address] Neutrophils (Bld) [#/Vol] 3.1 10*3/uL Normal 1.8-7.7 [facility] Comment on above: Performed By: #### C BC, CREAT, HEPATIC, ESR #### [address] Neutrophils/100 WBC (Bld) 59.5 % Normal . [facility] Comment on above: Performed By: #### C BC, CREAT, HEPATIC, ESR #### [address] NRBC% 0.2 /100{WBC} Normal 0-0.5 The [facility] Comment on above: Performed By: #### C BC, CREAT, HEPATIC, ESR #### [address] Platelet mean volume (Bld) [Entitic vol] 8.5 fL Normal 6.6-10.1 The [facility] Comment on above: Performed By: #### C BC, CREAT, HEPATIC, ESR #### [place] [address] [place] Platelets (Bld) [#/Vol] 309 10*3/uL Normal 150-450 [facility] Comment on above: Performed By: #### C BC, CREAT, HEPATIC, ESR #### [place] [address] [place] RBC (Bld) [#/Vol] 4.52 10*6/uL Normal 3.90-5.60 The [facility] Comment on above: Performed By: #### C BC, CREAT, HEPATIC, ESR #### [place] [address] WBC (Bld) [#/Vol] 5.2 10*3/uL Normal 4.1-10.5 The [facility] Comment on above: Performed By: #### C BC, CREAT, HEPATIC, ESR #### [facility] [address] Creatinineon 05-25-2023 Creatinine [Mass/Vol] 0.91 mg/dL Normal 0.70-1.30 The [facility] Comment on above: Performed By: #### C BC, CREAT, HEPATIC, ESR #### [address] GFR/1.73 sq M.predicted MDRD (S/P/Bld) [Vol rate/Area] mL/min/{1.73_m2} Normal The [facility] Comment on above: Result Comment: PERF ORMED BY: [place] [address] PATHOLOGIST RV REPAIRER LIZANDRO HOFF M.D. Performed By: #### C BC, CREAT, HEPATIC, ESR #### [address] Creatinine [Mass/volume] in Serum or PlasmaOrdered By: Zhou Fischer on 05-25-2023 Creatinine [Mass/Vol] 0.91 mg/dL 0.70-1.30 [facility] Eosinophils Auto (Bld) [#/Vo l]Ordered By: Zhou Fischer on 05-25-2023 Eosinophils (Bld) [#/Vol] 0.1 10*3/uL 0.0-0.45 [facility] Eosinophils/100 WBC Auto (Bl d)Ordered By: Zhou Fischer on 05-25-2023 Eosinophils/100 WBC (Bld) 2.4 % . [facility] Erythrocyte Sedimentation Ra pennie 05-25-2023 ESR (Bld) [Velocity] 2 mm/h Normal 0-19 [facility] Comment on above: Result Comment: PERF ORMED BY: [place] [address] PATHOLOGIST RV REPAIRER LIZANDRO HOFF M.D. Performed By: #### C BC, CREAT, HEPATIC, ESR #### [facility] [address] Erythrocyte distribution wid th Auto (RBC) [Ratio]Ordered By: Zhou Fischer on 05-25-2023 Erythrocyte distribution width (RBC) [Ratio] 13.8 % 12.0-14.8 [facility] Erythrocyte sedimentation ra te by Photometric methodOrdered By: Zhou Fischer on 05-25-2023 ESR Photometric method (Bld) [Velocity] 2 mm/hr 0-19 [facility] Globulin Calc (S) [Mass/Vol] Ordered By: Zhou Fischer on 05-25-2023 Globulin (S) [Mass/Vol] 2.2 g/dL [facility] Hematocrit Auto (Bld) [Volum e fraction]Ordered By: Zhou Fischer on 05-25-2023 Hematocrit (Bld) [Volume fraction] 41.8 % 38.8-50.0 [facility] Hemoglobin [Mass/volume] in BloodOrdered By: Zhou Fischer on 05-25-2023 Hemoglobin (Bld) [Mass/Vol] 14.3 g/dL 13.0-17.0 [facility] Hepatic Panelon 05-25-2023 Albumin [Mass/Vol] 4.5 g/dL Normal 3.5-5.7 The [facility] Comment on above: Performed By: #### C BC, CREAT, HEPATIC, ESR #### [facility] [address] Albumin/Globulin [Mass ratio] 2.0 {ratio} Normal The [facility] Comment on above: Performed By: #### C BC, CREAT, HEPATIC, ESR #### [facility] [address] ALP [Catalytic activity/Vol] 66 U/L Normal 34-104 [facility] Comment on above: Performed By: #### C BC, CREAT, HEPATIC, ESR #### [facility] [address] [place] [id number] [facility] ALT [Catalytic activity/Vol] 36 U/L Normal 7-52 [facility] Comment on above: Performed By: #### C BC, CREAT, HEPATIC, ESR #### [facility] [address] AST [Catalytic activity/Vol] 25 U/L Normal 13-39 [facility] Comment on above: Performed By: #### C BC, CREAT, HEPATIC, ESR #### [address] Bilirubin [Mass/Vol] 0.5 mg/dL Normal 0.3-1.0 [facility] Comment on above: Performed By: #### C BC, CREAT, HEPATIC, ESR #### [address] Bilirubin,Indirect 0.4 mg/dL Normal The [facility] Comment on above: Performed By: #### C BC, CREAT, HEPATIC, ESR #### [address] Bilirubin.indirect [Mass/Vol] 0.10 mg/dL Normal 0.03-0.18 [facility] Comment on above: Performed By: #### C BC, CREAT, HEPATIC, ESR #### [address] Globulin (S) [Mass/Vol] 2.2 g/dL Normal T he [facility] Comment on above: Performed By: #### C BC, CREAT, HEPATIC, ESR #### [address] Protein [Mass/Vol] 6.7 g/dL Normal 6.4-8.9 [facility] Comment on above: Performed By: #### C BC, CREAT, HEPATIC, ESR #### [address] Leukocytes [#/volume] correc basim for nucleated erythrocytes in Blood by Automated counOrdered By: Zhou Fischer on 05-25-2023 WBC corrected for nucl RBC Auto (Bld) [#/Vol] 5.2 10*3/uL 4.1-10.5 [facility] Lymphocytes Auto (Bld) [#/Vo l]Ordered By: Zhou Fischer on 05-25-2023 Lymphocytes (Bld) [#/Vol] 1.5 10*3/uL 1.00-4.8 [facility] Lymphocytes/100 WBC Auto (Bl d)Ordered By: Zhou Fischer on 05-25-2023 Lymphocytes/100 WBC (Bld) 27.8 % . [facility] MCH Auto (RBC) [Entitic mass ]Ordered By: Zhou Fischer on 05-25-2023 MCH (RBC) [Entitic mass] 31.5 pg 27.5-35.2 [facility] MCHC Auto (RBC) [Mass/Vol]Or dered By: Zhou Fischer on 05-25-2023 MCHC (RBC) [Mass/Vol] 34.1 g/dL 32.5-35.6 Fir [facility] MCV Auto (RBC) [Entitic vol] Ordered By: Zhou Fischer on 05-25-2023 MCV (RBC) [Entitic vol] 92.4 fL 83.5-101 F [facility] Monocytes Auto (Bld) [#/Vol] Ordered By: Zhou Fischer on 05-25-2023 Monocytes (Bld) [#/Vol] 0.5 10*3/uL 0.0-0.8 [facility] Monocytes/100 WBC Auto (Bld) Ordered By: Zhou Fischer on 05-25-2023 Monocytes/100 WBC (Bld) 9.6 % . [facility] Neutrophils Auto (Bld) [#/Vo l]Ordered By: Zhou Fischer on 05-25-2023 Neutrophils (Bld) [#/Vol] 3.1 10*3/uL 1.8-7.7 [facility] Neutrophils/100 WBC Auto (Bl d)Ordered By: Zhou Fischer on 05-25-2023 Neutrophils/100 WBC (Bld) 59.5 % . [facility] No Panel InformationOrdered By: Zhou Fischer on 05-25-2023 Estimated GFR (CKD-EPI) > 60.0 mL/Min [facility] Creatinine Clearance (Chem N/A [facility] Nucleated erythrocytes [Pres ence] in Blood by Automated countOrdered By: Zhou Fischer on 05-25-2023 Nucleated RBC Auto Ql (Bld) 0.2 /100{WBC} 0-0.5 [facility] Platelet mean volume Auto (B ld) [Entitic vol]Ordered By: Zhou Fischer on 05-25-2023 Platelet mean volume (Bld) [Entitic vol] 8.5 fL 6.6-10.1 [facility] Platelets Auto (Bld) [#/Vol] Ordered By: Zhou Fischer on 05-25-2023 Platelets (Bld) [#/Vol] 309 10*3/uL 150-450 [facility] Protein [Mass/volume] in Ser um or PlasmaOrdered By: Zhou Fischer on 05-25-2023 Protein [Mass/Vol] 6.7 g/dL 6.4-8.9 [facility] RBC Auto (Bld) [#/Vol]Ordere d By: Zhou Fischer on 05-25-2023 RBC (Bld) [#/Vol] 4.52 10*6/uL 3.90-5.60 [facility] Serum or plasma albumin/glob ulin mass ratioOrdered By: Zhou Fischer on 05-25-2023 Albumin/Globulin [Mass ratio] 2.0 {ratio} [facility] Serum or plasma non-glucuron idated bilirubin measurement (mass/volume)Ordered By: Zhou Fischer on 05-25-2023 Bilirubin.indirect [Mass/Vol] 0.4 mg/dL [facility] WBC Auto (Bld) [#/Vol]Ordere d By: Zhou Fischer on 05-25-2023 WBC (Bld) [#/Vol] 5.2 10*3/uL 4.1-10.5 [facility] Alanine aminotransferase [En zymatic activity/volume] in Serum or PlasmaOrdered By: Zhou Fischer on 03-17-2023 ALT [Catalytic activity/Vol] 26 U/L 7-52 [facility] Albumin [Mass/volume] in Ser um or Plasma by Bromocresol green (BCG) dye binding methoOrdered By: Zhou Fischer on 03-17-2023 Albumin BCG dye [Mass/Vol] 4.4 g/dL 3.5-5.7 [facility] Alkaline phosphatase [Enzyma tic activity/volume] in Serum or PlasmaOrdered By: Zhou Fischer on 03-17-2023 ALP [Catalytic activity/Vol] 74 U/L 34-104 [facility] Aspartate aminotransferase [ Enzymatic activity/volume] in Serum or PlasmaOrdered By: Zhou Fischer on 03-17-2023 AST [Catalytic activity/Vol] 21 U/L 13-39 [facility] Basophils Auto (Bld) [#/Vol] Ordered By: Zhou Fischer on 03-17-2023 Basophils (Bld) [#/Vol] 0.0 10*3/uL 0.0-0.2 [facility] Basophils/100 WBC Auto (Bld) Ordered By: Zhou Fischer on 03-17-2023 Basophils/100 WBC (Bld) 0.7 % . [facility] Bilirubin.direct [Mass/volum e] in Serum or PlasmaOrdered By: Zhou Fischer on 03-17-2023 Bilirubin.direct [Mass/Vol] 0.10 mg/dL 0.03-0.18 [facility] Bilirubin.total [Mass/volume ] in Serum or PlasmaOrdered By: Zhou Fischer on 03-17-2023 Bilirubin [Mass/Vol] 0.5 mg/dL 0.3-1.0 [facility] Complete Blood Count Auto Di ffon 03-17-2023 Basophils (Bld) [#/Vol] 0.0 10*3/uL Normal 0.0-0.2 [facility] Comment on above: Performed By: #### C BC, CREAT, HEPATIC, ESR #### [facility] [address] [place] [address] [place] Basophils/100 WBC (Bld) 0.7 % Normal . T lina [facility] Comment on above: Performed By: #### C BC, CREAT, HEPATIC, ESR #### [facility] [address] [place] [id number] [place] Eosinophils (Bld) [#/Vol] 0.1 10*3/uL Normal 0.0-0.45 [facility] Comment on above: Performed By: #### C BC, CREAT, HEPATIC, ESR #### [address] Eosinophils/100 WBC (Bld) 2.0 % Normal . [facility] Comment on above: Performed By: #### C BC, CREAT, HEPATIC, ESR #### [address] Erythrocyte distribution width (RBC) [Ratio] 14.1 % Normal 12.0-14.8 [facility] Comment on above: Performed By: #### C BC, CREAT, HEPATIC, ESR #### [address] Hematocrit (Bld) [Volume fraction] 41.8 % Normal 38.8-50.0 [facility] Comment on above: Performed By: #### C BC, CREAT, HEPATIC, ESR #### [address] Hemoglobin (Bld) [Mass/Vol] 14.4 g/dL Normal 13.0-17.0 [facility] Comment on above: Performed By: #### C BC, CREAT, HEPATIC, ESR #### [address] Lymphocytes (Bld) [#/Vol] 1.4 10*3/uL Normal 1.00-4.8 [facility] Comment on above: Performed By: #### C BC, CREAT, HEPATIC, ESR #### [address] Lymphocytes/100 WBC (Bld) 27.2 % Normal . [facility] Comment on above: Performed By: #### C BC, CREAT, HEPATIC, ESR #### [address] MCH (RBC) [Entitic mass] 31.3 pg Normal 27.5-35.2 [facility] Comment on above: Performed By: #### C BC, CREAT, HEPATIC, ESR #### [place] [address] [place] MCV (RBC) [Entitic vol] 91.1 fL Normal 83.5-101 T [facility] Comment on above: Performed By: #### C BC, CREAT, HEPATIC, ESR #### [facility] [address] Mean Corpuscular HGB Conc 34.3 g/dL Normal 32.5-35.6 [facility] Comment on above: Performed By: #### C BC, CREAT, HEPATIC, ESR #### [facility] [address] [place] [address] [place] Monocytes (Bld) [#/Vol] 0.4 10*3/uL Normal 0.0-0.8 [facility] Comment on above: Performed By: #### C BC, CREAT, HEPATIC, ESR #### [address] Monocytes/100 WBC (Bld) 8.0 % Normal . T [facility] Comment on above: Performed By: #### C BC, CREAT, HEPATIC, ESR #### [facility] [address] Neutrophils (Bld) [#/Vol] 3.2 10*3/uL Normal 1.8-7.7 [facility] Comment on above: Performed By: #### C BC, CREAT, HEPATIC, ESR #### [facility] [address] [place] [address] [place] Neutrophils/100 WBC (Bld) 62.1 % Normal . [facility] Comment on above: Performed By: #### C BC, CREAT, HEPATIC, ESR #### [facility] [address] [place] [address] [place] NRBC% 0.0 /100{WBC} Normal 0-0.5 [facility] Comment on above: Performed By: #### C BC, CREAT, HEPATIC, ESR #### [facility] [address] Platelet mean volume (Bld) [Entitic vol] 8.4 fL Normal 6.6-10.1 [facility] Comment on above: Performed By: #### C BC, CREAT, HEPATIC, ESR #### [facility] [address] Platelets (Bld) [#/Vol] 326 10*3/uL Normal 150-450 [facility] Comment on above: Performed By: #### C BC, CREAT, HEPATIC, ESR #### [facility] [address] RBC (Bld) [#/Vol] 4.59 10*6/uL Normal 3.90-5.60 [facility] Comment on above: Performed By: #### C BC, CREAT, HEPATIC, ESR #### [facility] [address] WBC (Bld) [#/Vol] 5.2 10*3/uL Normal 4.1-10.5 [facility] Comment on above: Performed By: #### C BC, CREAT, HEPATIC, ESR #### [address] Creatinineon 03-17-2023 Creatinine [Mass/Vol] 0.89 mg/dL Normal 0.70-1.30 [facility] Comment on above: Performed By: #### C BC, CREAT, HEPATIC, ESR #### [address] GFR/1.73 sq M.predicted MDRD (S/P/Bld) [Vol rate/Area] mL/min/{1.73_m2} Normal [facility] Comment on above: Result Comment: PERF ORMED BY: [place] [address] PATHOLOGIST RV REPAIRER LIZANDRO HOFF M.D. Performed By: #### C BC, CREAT, HEPATIC, ESR #### [address] Creatinine [Mass/volume] in Serum or PlasmaOrdered By: Zhou Fischer on 03-17-2023 Creatinine [Mass/Vol] 0.89 mg/dL 0.70-1.30 [facility] Eosinophils Auto (Bld) [#/Vo l]Ordered By: Zhou Fischer on 03-17-2023 Eosinophils (Bld) [#/Vol] 0.1 10*3/uL 0.0-0.45 [facility] Eosinophils/100 WBC Auto (Bl d)Ordered By: Zhou Fischer on 03-17-2023 Eosinophils/100 WBC (Bld) 2.0 % . [facility] Erythrocyte Sedimentation Ra pennie 03-17-2023 ESR (Bld) [Velocity] 5 mm/h Normal 0-19 [facility] Comment on above: Result Comment: PERF ORMED BY: [place] [address] PATHOLOGIST RV REPAIRER LIZANDRO HOFF M.D. Performed By: #### C BC, CREAT, HEPATIC, ESR #### [address] Erythrocyte distribution wid th Auto (RBC) [Ratio]Ordered By: Zhou Fischer on 03-17-2023 Erythrocyte distribution width (RBC) [Ratio] 14.1 % 12.0-14.8 [facility] Erythrocyte sedimentation ra te by Photometric methodOrdered By: Zhou Fischer on 03-17-2023 ESR Photometric method (Bld) [Velocity] 5 mm/hr 0- [facility] Globulin Calc (S) [Mass/Vol] Ordered By: Zhou Fischer on 03-17-2023 Globulin (S) [Mass/Vol] 2.4 g/dL [facility] Hematocrit Auto (Bld) [Volum e fraction]Ordered By: Zhou Fischer on 03-17-2023 Hematocrit (Bld) [Volume fraction] 41.8 % 38.8-50.0 [facility] Hemoglobin [Mass/volume] in BloodOrdered By: Zhou Fischer on 03-17-2023 Hemoglobin (Bld) [Mass/Vol] 14.4 g/dL 13.0-17.0 [facility] Hepatic Panelon 03-17-2023 Albumin [Mass/Vol] 4.4 g/dL Normal 3.5-5.7 [facility] Comment on above: Performed By: #### C BC, CREAT, HEPATIC, ESR #### [facility] [address] [place] [address] [place] Albumin/Globulin [Mass ratio] 1.8 {ratio} Normal [facility] Comment on above: Performed By: #### C BC, CREAT, HEPATIC, ESR #### [facility] [address] [place] [id number] [place] ALP [Catalytic activity/Vol] 74 U/L Normal 34-104 [facility] Comment on above: Performed By: #### C BC, CREAT, HEPATIC, ESR #### [facility] [address] [place] [address] [place] ALT [Catalytic activity/Vol] 26 U/L Normal 7-52 [facility] Comment on above: Performed By: #### C BC, CREAT, HEPATIC, ESR #### [facility] [address] [place] [address] [place] AST [Catalytic activity/Vol] 21 U/L Normal 13-39 [facility] Comment on above: Performed By: #### C BC, CREAT, HEPATIC, ESR #### [facility] [address] [place] [address] [place] Bilirubin [Mass/Vol] 0.5 mg/dL Normal 0.3-1.0 [facility] Comment on above: Performed By: #### C BC, CREAT, HEPATIC, ESR #### [facility] [address] [place] [address] [place] Bilirubin,Indirect 0.4 mg/dL Normal [facility] Comment on above: Performed By: #### C BC, CREAT, HEPATIC, ESR #### [facility] [address] [place] [id number] [place] Bilirubin.indirect [Mass/Vol] 0.10 mg/dL Normal 0.03-0.18 [facility] Comment on above: Performed By: #### C BC, CREAT, HEPATIC, ESR #### [facility] [address] [place] [id number] [place] Globulin (S) [Mass/Vol] 2.4 g/dL Normal T he [facility] Comment on above: Performed By: #### C BC, CREAT, HEPATIC, ESR #### [facility] [address] Protein [Mass/Vol] 6.8 g/dL Normal 6.4-8.9 [facility] Comment on above: Performed By: #### C BC, CREAT, HEPATIC, ESR #### [facility] [address] [place] [id number] [facility] Leukocytes [#/volume] correc basim for nucleated erythrocytes in Blood by Automated counOrdered By: Zhou Fischer on 03-17-2023 WBC corrected for nucl RBC Auto (Bld) [#/Vol] 5.2 10*3/uL 4.1-10.5 [facility] Lymphocytes Auto (Bld) [#/Vo l]Ordered By: Zhou Fischer on 03-17-2023 Lymphocytes (Bld) [#/Vol] 1.4 10*3/uL 1.00-4.8 [facility] Lymphocytes/100 WBC Auto (Bl d)Ordered By: Zhou Fischer on 03-17-2023 Lymphocytes/100 WBC (Bld) 27.2 % . [facility] MCH Auto (RBC) [Entitic mass ]Ordered By: Zhou Fischer on 03-17-2023 MCH (RBC) [Entitic mass] 31.3 pg 27.5-35.2 [facility] MCHC Auto (RBC) [Mass/Vol]Or dered By: Zhou Fischer on 03-17-2023 MCHC (RBC) [Mass/Vol] 34.3 g/dL 32.5-35.6 [facility] MCV Auto (RBC) [Entitic vol] Ordered By: Zhou Fischer on 03-17-2023 MCV (RBC) [Entitic vol] 91.1 fL 83.5-101 [facility] Monocytes Auto (Bld) [#/Vol] Ordered By: Zhou Fischer on 03-17-2023 Monocytes (Bld) [#/Vol] 0.4 10*3/uL 0.0-0.8 [facility] Monocytes/100 WBC Auto (Bld) Ordered By: Zhou Fischer on 03-17-2023 Monocytes/100 WBC (Bld) 8.0 % . [facility] Neutrophils Auto (Bld) [#/Vo l]Ordered By: Zhou Fischer on 03-17-2023 Neutrophils (Bld) [#/Vol] 3.2 10*3/uL 1.8-7.7 [facility] Neutrophils/100 WBC Auto (Bl d)Ordered By: Zhou Fischer on 03-17-2023 Neutrophils/100 WBC (Bld) 62.1 % . [facility] No Panel InformationOrdered By: Zhou Fischer on 03-17-2023 Estimated GFR (CKD-EPI) > 60.0 mL/Min [facility] Creatinine Clearance (Chem N/A [facility] Nucleated erythrocytes [Pres ence] in Blood by Automated countOrdered By: Zhou Fischer on 03-17-2023 Nucleated RBC Auto Ql (Bld) 0.0 /100{WBC} 0-0.5 [facility] Platelet mean volume Auto (B ld) [Entitic vol]Ordered By: Zhou Fischer on 03-17-2023 Platelet mean volume (Bld) [Entitic vol] 8.4 fL 6.6-10.1 [facility] Platelets Auto (Bld) [#/Vol] Ordered By: Zhou Fischer on 03-17-2023 Platelets (Bld) [#/Vol] 326 10*3/uL 150-450 [facility] Protein [Mass/volume] in Ser um or PlasmaOrdered By: Zhou Fischer on 03-17-2023 Protein [Mass/Vol] 6.8 g/dL 6.4-8.9 [facility] RBC Auto (Bld) [#/Vol]Ordere d By: Zhou Fischer on 03-17-2023 RBC (Bld) [#/Vol] 4.59 10*6/uL 3.90-5.60 [facility] Serum or plasma albumin/glob ulin mass ratioOrdered By: Zhou Fischer on 03-17-2023 Albumin/Globulin [Mass ratio] 1.8 {ratio} [facility] Serum or plasma non-glucuron idated bilirubin measurement (mass/volume)Ordered By: Zhou Fischer on 03-17-2023 Bilirubin.indirect [Mass/Vol] 0.4 mg/dL [facility] WBC Auto (Bld) [#/Vol]Ordere d By: Zhou Fischer on 03-17-2023 WBC (Bld) [#/Vol] 5.2 10*3/uL 4.1-10.5 [facility] Alanine aminotransferase [En zymatic activity/volume] in Serum or PlasmaOrdered By: Zhou Fischer on 02-24-2023 ALT [Catalytic activity/Vol] 42 U/L 7-52 [facility] Albumin [Mass/volume] in Ser um or Plasma by Bromocresol green (BCG) dye binding methoOrdered By: Zhou Fischer on 02-24-2023 Albumin BCG dye [Mass/Vol] 4.6 g/dL 3.5-5.7 [facility] Alkaline phosphatase [Enzyma tic activity/volume] in Serum or PlasmaOrdered By: Zhou Fischer on 02-24-2023 ALP [Catalytic activity/Vol] 66 U/L 34-104 [facility] Aspartate aminotransferase [ Enzymatic activity/volume] in Serum or PlasmaOrdered By: Zhou Fischer on 02-24-2023 AST [Catalytic activity/Vol] 31 U/L 13-39 [facility] Basophils Auto (Bld) [#/Vol] Ordered By: Zhou Fischer on 02-24-2023 Basophils (Bld) [#/Vol] 0.0 10*3/uL 0.0-0.2 [facility] Basophils/100 WBC Auto (Bld) Ordered By: Zhou Fischer on 02-24-2023 Basophils/100 WBC (Bld) 0.6 % . [facility] Bilirubin.direct [Mass/volum e] in Serum or PlasmaOrdered By: Zhou Fischer on 02-24-2023 Bilirubin.direct [Mass/Vol] 0.10 mg/dL 0.03-0.18 [facility] Bilirubin.total [Mass/volume ] in Serum or PlasmaOrdered By: Zhou Fischer on 02-24-2023 Bilirubin [Mass/Vol] 0.6 mg/dL 0.3-1.0 [facility] Complete Blood Count Auto Di ffon 02-24-2023 Basophils (Bld) [#/Vol] 0.0 10*3/uL Normal 0.0-0.2 [facility] Comment on above: Performed By: #### C BC, CREAT, HEPATIC, ESR #### [address] Basophils/100 WBC (Bld) 0.6 % Normal . T he [facility] Comment on above: Performed By: #### C BC, CREAT, HEPATIC, ESR #### [address] Eosinophils (Bld) [#/Vol] 0.1 10*3/uL Normal 0.0-0.45 [facility] Comment on above: Performed By: #### C BC, CREAT, HEPATIC, ESR #### [address] Eosinophils/100 WBC (Bld) 2.8 % Normal . [facility] Comment on above: Performed By: #### C BC, CREAT, HEPATIC, ESR #### [address] Erythrocyte distribution width (RBC) [Ratio] 14.3 % Normal 12.0-14.8 [facility] Comment on above: Performed By: #### C BC, CREAT, HEPATIC, ESR #### [address] Hematocrit (Bld) [Volume fraction] 42.4 % Normal 38.8-50.0 [facility] Comment on above: Performed By: #### C BC, CREAT, HEPATIC, ESR #### [address] Hemoglobin (Bld) [Mass/Vol] 14.3 g/dL Normal 13.0-17.0 [facility] [facility] Comment on above: Performed By: #### C BC, CREAT, HEPATIC, ESR #### [address] Lymphocytes (Bld) [#/Vol] 1.7 10*3/uL Normal 1.00-4.8 [facility] Comment on above: Performed By: #### C BC, CREAT, HEPATIC, ESR #### [address] Lymphocytes/100 WBC (Bld) 32.9 % Normal . [facility] Comment on above: Performed By: #### C BC, CREAT, HEPATIC, ESR #### [address] MCH (RBC) [Entitic mass] 30.9 pg Normal 27.5-35.2 [facility] Comment on above: Performed By: #### C BC, CREAT, HEPATIC, ESR #### [address] MCV (RBC) [Entitic vol] 91.8 fL Normal 83.5-101 [facility] Comment on above: Performed By: #### C BC, CREAT, HEPATIC, ESR #### [address] Mean Corpuscular HGB Conc 33.7 g/dL Normal 32.5-35.6 [facility] Comment on above: Performed By: #### C BC, CREAT, HEPATIC, ESR #### [address] Monocytes (Bld) [#/Vol] 0.5 10*3/uL Normal 0.0-0.8 [facility] Comment on above: Performed By: #### C BC, CREAT, HEPATIC, ESR #### [address] Monocytes/100 WBC (Bld) 9.2 % Normal . [facility] Comment on above: Performed By: #### C BC, CREAT, HEPATIC, ESR #### [address] Neutrophils (Bld) [#/Vol] 2.8 10*3/uL Normal 1.8-7.7 [facility] Comment on above: Performed By: #### C BC, CREAT, HEPATIC, ESR #### [address] Neutrophils/100 WBC (Bld) 54.5 % Normal . [facility] Comment on above: Performed By: #### C BC, CREAT, HEPATIC, ESR #### [address] NRBC% 0.1 /100{WBC} Normal 0-0.5 The [facility] Comment on above: Performed By: #### C BC, CREAT, HEPATIC, ESR #### [address] Platelet mean volume (Bld) [Entitic vol] 8.6 fL Normal 6.6-10.1 [facility] Comment on above: Performed By: #### C BC, CREAT, HEPATIC, ESR #### [address] Platelets (Bld) [#/Vol] 304 10*3/uL Normal 150-450 [facility] Comment on above: Performed By: #### C BC, CREAT, HEPATIC, ESR #### [address] RBC (Bld) [#/Vol] 4.62 10*6/uL Normal 3.90-5.60 [facility] Comment on above: Performed By: #### C BC, CREAT, HEPATIC, ESR #### [address] WBC (Bld) [#/Vol] 5.2 10*3/uL Normal 4.1-10.5 The [facility] Comment on above: Performed By: #### C BC, CREAT, HEPATIC, ESR #### [address] Creatinineon 02-24-2023 Creatinine [Mass/Vol] 0.89 mg/dL Normal 0.70-1.30 [facility] Comment on above: Performed By: #### C BC, CREAT, HEPATIC, ESR #### [facility] [address] [place] [address] [place] GFR/1.73 sq M.predicted MDRD (S/P/Bld) [Vol rate/Area] mL/min/{1.73_m2} Normal [facility] Comment on above: Result Comment: PERF ORMED BY: [place] [address] PATHOLOGIST RV REPAIRER LIZANDRO HOFF M.D. Performed By: #### C BC, CREAT, HEPATIC, ESR #### [facility] [address] [place], [place] [id number] [facility] Creatinine [Mass/volume] in Serum or PlasmaOrdered By: Zhou Fischer on 02-24-2023 Creatinine [Mass/Vol] 0.89 mg/dL 0.70-1.30 [facility] Eosinophils Auto (Bld) [#/Vo l]Ordered By: Zhou Fischer on 02-24-2023 Eosinophils (Bld) [#/Vol] 0.1 10*3/uL 0.0-0.45 [facility] Eosinophils/100 WBC Auto (Bl d)Ordered By: Zhou Fischer on 02-24-2023 Eosinophils/100 WBC (Bld) 2.8 % . [facility] Erythrocyte Sedimentation Ra pennie 02-24-2023 ESR (Bld) [Velocity] 4 mm/h Normal 0-19 [facility] Comment on above: Result Comment: PERF ORMED BY: [place] [address] PATHOLOGIST RV REPAIRER LIZANDRO HOFF M.D. Performed By: #### C BC, CREAT, HEPATIC, ESR #### [facility] [address] [place], [place] [id number] [facility] Erythrocyte distribution wid th Auto (RBC) [Ratio]Ordered By: Zhou Fischer on 02-24-2023 Erythrocyte distribution width (RBC) [Ratio] 14.3 % 12.0-14.8 [facility] Erythrocyte sedimentation ra te by Photometric methodOrdered By: Zhou Fischer on 02-24-2023 ESR Photometric method (Bld) [Velocity] 4 mm/hr 0-19 [facility] Globulin Calc (S) [Mass/Vol] Ordered By: Zhou Fischer on 02-24-2023 Globulin (S) [Mass/Vol] 2.5 g/dL [facility] Hematocrit Auto (Bld) [Volum e fraction]Ordered By: Zhou Fischer on 02-24-2023 Hematocrit (Bld) [Volume fraction] 42.4 % 38.8-50.0 [facility] Hemoglobin [Mass/volume] in BloodOrdered By: Zhou Fischer on 02-24-2023 Hemoglobin (Bld) [Mass/Vol] 14.3 g/dL 13.0-17.0 [facility] Hepatic Panelon 02-24-2023 Albumin [Mass/Vol] 4.6 g/dL Normal 3.5-5.7 [facility] Comment on above: Performed By: #### C BC, CREAT, HEPATIC, ESR #### [address] Albumin/Globulin [Mass ratio] 1.8 {ratio} Normal [facility] Comment on above: Performed By: #### C BC, CREAT, HEPATIC, ESR #### [facility] [address] [place] [address] [place] ALP [Catalytic activity/Vol] 66 U/L Normal 34-104 [facility] Comment on above: Performed By: #### C BC, CREAT, HEPATIC, ESR #### [facility] [address] [place] [address] [place] ALT [Catalytic activity/Vol] 42 U/L Normal 7-52 [facility] Comment on above: Performed By: #### C BC, CREAT, HEPATIC, ESR #### [facility] [address] [place] [id number] [place] AST [Catalytic activity/Vol] 31 U/L Normal 13-39 [facility] Comment on above: Performed By: #### C BC, CREAT, HEPATIC, ESR #### [facility] [address] [place] [id number] [place] Bilirubin [Mass/Vol] 0.6 mg/dL Normal 0.3-1.0 [facility] Comment on above: Performed By: #### C BC, CREAT, HEPATIC, ESR #### [facility] [address] Bilirubin,Indirect 0.5 mg/dL Normal [facility] Comment on above: Performed By: #### C BC, CREAT, HEPATIC, ESR #### [facility] [address] Bilirubin.indirect [Mass/Vol] 0.10 mg/dL Normal 0.03-0.18 [facility] Comment on above: Performed By: #### C BC, CREAT, HEPATIC, ESR #### [facility] [address] Globulin (S) [Mass/Vol] 2.5 g/dL Normal T he [facility] Comment on above: Performed By: #### C BC, CREAT, HEPATIC, ESR #### [address] Protein [Mass/Vol] 7.1 g/dL Normal 6.4-8.9 [facility] Comment on above: Performed By: #### C BC, CREAT, HEPATIC, ESR #### [address] Leukocytes [#/volume] correc basim for nucleated erythrocytes in Blood by Automated counOrdered By: Zhou Fischer on 02-24-2023 WBC corrected for nucl RBC Auto (Bld) [#/Vol] 5.2 10*3/uL 4.1-10.5 [facility] Lymphocytes Auto (Bld) [#/Vo l]Ordered By: Zhou Fischer on 02-24-2023 Lymphocytes (Bld) [#/Vol] 1.7 10*3/uL 1.00-4.8 [facility] Lymphocytes/100 WBC Auto (Bl d)Ordered By: Zhou Fischer on 02-24-2023 Lymphocytes/100 WBC (Bld) 32.9 % . [facility] MCH Auto (RBC) [Entitic mass ]Ordered By: Zhou Fischer on 02-24-2023 MCH (RBC) [Entitic mass] 30.9 pg 27.5-35.2 [facility] MCHC Auto (RBC) [Mass/Vol]Or dered By: Zhou Fischer on 02-24-2023 MCHC (RBC) [Mass/Vol] 33.7 g/dL 32.5-35.6 [facility] MCV Auto (RBC) [Entitic vol] Ordered By: Zhou Fischer on 02-24-2023 MCV (RBC) [Entitic vol] 91.8 fL 83.5-101 [facility] Monocytes Auto (Bld) [#/Vol] Ordered By: Zhou Fischer on 02-24-2023 Monocytes (Bld) [#/Vol] 0.5 10*3/uL 0.0-0.8 [facility] Monocytes/100 WBC Auto (Bld) Ordered By: Zhou Fischer on 02-24-2023 Monocytes/100 WBC (Bld) 9.2 % . [facility] Neutrophils Auto (Bld) [#/Vo l]Ordered By: Zhou Fischer on 02-24-2023 Neutrophils (Bld) [#/Vol] 2.8 10*3/uL 1.8-7.7 [facility] Neutrophils/100 WBC Auto (Bl d)Ordered By: Zhou Fischer on 02-24-2023 Neutrophils/100 WBC (Bld) 54.5 % . [facility] No Panel InformationOrdered By: Zhou Fischer on 02-24-2023 Estimated GFR (CKD-EPI) > 60.0 mL/Min [facility] Creatinine Clearance (Chem N/A [facility] Nucleated erythrocytes [Pres ence] in Blood by Automated countOrdered By: Zhou Fischer on 02-24-2023 Nucleated RBC Auto Ql (Bld) 0.1 /100{WBC} 0-0.5 [facility] Platelet mean volume Auto (B ld) [Entitic vol]Ordered By: Zhou Fischer on 02-24-2023 Platelet mean volume (Bld) [Entitic vol] 8.6 fL 6.6-10.1 [facility] Platelets Auto (Bld) [#/Vol] Ordered By: Zhou Fischer on 02-24-2023 Platelets (Bld) [#/Vol] 304 10*3/uL 150-450 [facility] Protein [Mass/volume] in Ser um or PlasmaOrdered By: Zhou Fischer on 02-24-2023 Protein [Mass/Vol] 7.1 g/dL 6.4-8.9 [facility] RBC Auto (Bld) [#/Vol]Ordere d By: Zhou Fischer on 02-24-2023 RBC (Bld) [#/Vol] 4.62 10*6/uL 3.90-5.60 [facility] Serum or plasma albumin/glob ulin mass ratioOrdered By: Zhou Fischer on 02-24-2023 Albumin/Globulin [Mass ratio] 1.8 {ratio} [facility] Serum or plasma non-glucuron idated bilirubin measurement (mass/volume)Ordered By: Zhou Fischer on 02-24-2023 Bilirubin.indirect [Mass/Vol] 0.5 mg/dL [facility] WBC Auto (Bld) [#/Vol]Ordere d By: Zhou Fischer on 02-24-2023 WBC (Bld) [#/Vol] 5.2 10*3/uL 4.1-10.5 [facility] Alanine aminotransferase [En zymatic activity/volume] in Serum or PlasmaOrdered By: Zhou Fischer on 01-26-2023 ALT [Catalytic activity/Vol] 33 U/L 7-52 [facility] Albumin [Mass/volume] in Ser um or Plasma by Bromocresol green (BCG) dye binding methoOrdered By: Zhou Fischer on 01-26-2023 Albumin BCG dye [Mass/Vol] 4.3 g/dL 3.5-5.7 [facility] Alkaline phosphatase [Enzyma tic activity/volume] in Serum or PlasmaOrdered By: Zhou Fischer on 01-26-2023 ALP [Catalytic activity/Vol] 70 U/L 34-104 [facility] Aspartate aminotransferase [ Enzymatic activity/volume] in Serum or PlasmaOrdered By: Zhou Fischer on 01-26-2023 AST [Catalytic activity/Vol] 24 U/L 13-39 [facility] Basophils Auto (Bld) [#/Vol] Ordered By: Zhou Fischer on 01-26-2023 Basophils (Bld) [#/Vol] 0.0 10*3/uL 0.0-0.2 [facility] Basophils/100 WBC Auto (Bld) Ordered By: Zhou Fischer on 01-26-2023 Basophils/100 WBC (Bld) 0.7 % . [facility] Bilirubin.direct [Mass/volum e] in Serum or PlasmaOrdered By: Zhou Fischer on 01-26-2023 Bilirubin.direct [Mass/Vol] 0.10 mg/dL 0.03-0.18 [facility] Bilirubin.total [Mass/volume ] in Serum or PlasmaOrdered By: Zhou Fischer on 01-26-2023 Bilirubin [Mass/Vol] 0.5 mg/dL 0.3-1.0 [facility] Complete Blood Count Auto Di ffon 01-26-2023 Basophils (Bld) [#/Vol] 0.0 10*3/uL Normal 0.0-0.2 [facility] Comment on above: Performed By: #### C BC, CREAT, HEPATIC, ESR #### [facility] [address] Basophils/100 WBC (Bld) 0.7 % Normal . [facility] Comment on above: Performed By: #### C BC, CREAT, HEPATIC, ESR #### [facility] [address] [place] [address] [place] Eosinophils (Bld) [#/Vol] 0.1 10*3/uL Normal 0.0-0.45 [facility] Comment on above: Performed By: #### C BC, CREAT, HEPATIC, ESR #### [facility] [address] [place] [address] [place] Eosinophils/100 WBC (Bld) 2.5 % Normal . [facility] Comment on above: Performed By: #### C BC, CREAT, HEPATIC, ESR #### [facility] [address] Erythrocyte distribution width (RBC) [Ratio] 13.7 % Normal 12.0-14.8 [facility] Comment on above: Performed By: #### C BC, CREAT, HEPATIC, ESR #### [facility] [address] [place] [address] Hematocrit (Bld) [Volume fraction] 41.1 % Normal 38.8-50.0 [facility] Comment on above: Performed By: #### C BC, CREAT, HEPATIC, ESR #### [address] Hemoglobin (Bld) [Mass/Vol] 14.3 g/dL Normal 13.0-17.0 [facility] Comment on above: Performed By: #### C BC, CREAT, HEPATIC, ESR #### [address] Lymphocytes (Bld) [#/Vol] 1.7 10*3/uL Normal 1.00-4.8 [facility] Comment on above: Performed By: #### C BC, CREAT, HEPATIC, ESR #### [address] Lymphocytes/100 WBC (Bld) 29.7 % Normal . [facility] Comment on above: Performed By: #### C BC, CREAT, HEPATIC, ESR #### [address] MCH (RBC) [Entitic mass] 31.1 pg Normal 27.5-35.2 [facility] Comment on above: Performed By: #### C BC, CREAT, HEPATIC, ESR #### [address] MCV (RBC) [Entitic vol] 89.2 fL Normal 83.5-101 T [facility] Comment on above: Performed By: #### C BC, CREAT, HEPATIC, ESR #### [address] Mean Corpuscular HGB Conc 34.9 g/dL Normal 32.5-35.6 [facility] Comment on above: Performed By: #### C BC, CREAT, HEPATIC, ESR #### [address] Monocytes (Bld) [#/Vol] 0.5 10*3/uL Normal 0.0-0.8 [facility] Comment on above: Performed By: #### C BC, CREAT, HEPATIC, ESR #### [facility] [address] [place] [address] Monocytes/100 WBC (Bld) 8.7 % Normal . T he [facility] Comment on above: Performed By: #### C BC, CREAT, HEPATIC, ESR #### [address] Neutrophils (Bld) [#/Vol] 3.3 10*3/uL Normal 1.8-7.7 [facility] Comment on above: Performed By: #### C BC, CREAT, HEPATIC, ESR #### [address] Neutrophils/100 WBC (Bld) 58.4 % Normal . [facility] Comment on above: Performed By: #### C BC, CREAT, HEPATIC, ESR #### [address] NRBC% 0.1 /100{WBC} Normal 0-0.5 [facility] Comment on above: Performed By: #### C BC, CREAT, HEPATIC, ESR #### [address] Platelet mean volume (Bld) [Entitic vol] 8.3 fL Normal 6.6-10.1 [facility] Comment on above: Performed By: #### C BC, CREAT, HEPATIC, ESR #### [address] Platelets (Bld) [#/Vol] 288 10*3/uL Normal 150-450 [facility] Comment on above: Performed By: #### C BC, CREAT, HEPATIC, ESR #### [place] [address] [place] RBC (Bld) [#/Vol] 4.61 10*6/uL Normal 3.90-5.60 [facility] Comment on above: Performed By: #### C BC, CREAT, HEPATIC, ESR #### [facility] [address] WBC (Bld) [#/Vol] 5.6 10*3/uL Normal 4.1-10.5 [facility] Comment on above: Performed By: #### C BC, CREAT, HEPATIC, ESR #### [facility] [address] Creatinineon 01-26-2023 Creatinine [Mass/Vol] 0.83 mg/dL Normal 0.70-1.30 [facility] Comment on above: Performed By: #### C BC, CREAT, HEPATIC, ESR #### [facility] [address] GFR/1.73 sq M.predicted MDRD (S/P/Bld) [Vol rate/Area] mL/min/{1.73_m2} Normal [facility] Comment on above: Result Comment: PERF ORMED BY: [place] [address] PATHOLOGIST RV REPAIRER LIZANDRO HOFF M.D. Performed By: #### C BC, CREAT, HEPATIC, ESR #### [address] Creatinine [Mass/volume] in Serum or PlasmaOrdered By: Zhou Fischer on 01-26-2023 Creatinine [Mass/Vol] 0.83 mg/dL 0.70-1.30 [facility] Eosinophils Auto (Bld) [#/Vo l]Ordered By: Zhou Fischer on 01-26-2023 Eosinophils (Bld) [#/Vol] 0.1 10*3/uL 0.0-0.45 [facility] Eosinophils/100 WBC Auto (Bl d)Ordered By: Zhou Fischer on 01-26-2023 Eosinophils/100 WBC (Bld) 2.5 % . [facility] Erythrocyte Sedimentation Ra pennie 01-26-2023 ESR (Bld) [Velocity] 4 mm/h Normal 0-19 [facility] Comment on above: Result Comment: PERF ORMED BY: [place] [address] PATHOLOGIST RV REPAIRER LIZANDRO HOFF M.D. Performed By: #### C BC, CREAT, HEPATIC, ESR #### [facility] [address] Erythrocyte distribution wid th Auto (RBC) [Ratio]Ordered By: Zhou Fischer on 01-26-2023 Erythrocyte distribution width (RBC) [Ratio] 13.7 % 12.0-14.8 [facility] Erythrocyte sedimentation ra te by Photometric methodOrdered By: Zhou Fischer on 01-26-2023 ESR Photometric method (Bld) [Velocity] 4 mm/hr 0-19 [facility] Globulin Calc (S) [Mass/Vol] Ordered By: Zhou Fischer on 01-26-2023 Globulin (S) [Mass/Vol] 2.3 g/dL [facility] Hematocrit Auto (Bld) [Volum e fraction]Ordered By: Zhou Fischer on 01-26-2023 Hematocrit (Bld) [Volume fraction] 41.1 % 38.8-50.0 [facility] Hemoglobin [Mass/volume] in BloodOrdered By: Zhou Fischer on 01-26-2023 Hemoglobin (Bld) [Mass/Vol] 14.3 g/dL 13.0-17.0 [facility] Hepatic Panelon 01-26-2023 Albumin [Mass/Vol] 4.3 g/dL Normal 3.5-5.7 [facility] Comment on above: Performed By: #### C BC, CREAT, HEPATIC, ESR #### [facility] [address] Albumin/Globulin [Mass ratio] 1.9 {ratio} Normal [facility] Comment on above: Performed By: #### C BC, CREAT, HEPATIC, ESR #### [facility] [address] ALP [Catalytic activity/Vol] 70 U/L Normal 34-104 [facility] Comment on above: Performed By: #### C BC, CREAT, HEPATIC, ESR #### [facility] [address] [place] [id number] [facility] ALT [Catalytic activity/Vol] 33 U/L Normal 7-52 [facility] Comment on above: Performed By: #### C BC, CREAT, HEPATIC, ESR #### [address] AST [Catalytic activity/Vol] 24 U/L Normal 13-39 [facility] Comment on above: Performed By: #### C BC, CREAT, HEPATIC, ESR #### [address] Bilirubin [Mass/Vol] 0.5 mg/dL Normal 0.3-1.0 [facility] Comment on above: Performed By: #### C BC, CREAT, HEPATIC, ESR #### [address] Bilirubin,Indirect 0.4 mg/dL Normal [facility] Comment on above: Performed By: #### C BC, CREAT, HEPATIC, ESR #### [address] Bilirubin.indirect [Mass/Vol] 0.10 mg/dL Normal 0.03-0.18 [facility] Comment on above: Performed By: #### C BC, CREAT, HEPATIC, ESR #### [address] Globulin (S) [Mass/Vol] 2.3 g/dL Normal [facility] Comment on above: Performed By: #### C BC, CREAT, HEPATIC, ESR #### [address] Protein [Mass/Vol] 6.6 g/dL Normal 6.4-8.9 [facility] Comment on above: Performed By: #### C BC, CREAT, HEPATIC, ESR #### [address] Leukocytes [#/volume] correc basim for nucleated erythrocytes in Blood by Automated counOrdered By: Zhou Fischer on 01-26-2023 WBC corrected for nucl RBC Auto (Bld) [#/Vol] 5.6 10*3/uL 4.1-10.5 [facility] Lymphocytes Auto (Bld) [#/Vo l]Ordered By: Zhou Fischer on 01-26-2023 Lymphocytes (Bld) [#/Vol] 1.7 10*3/uL 1.00-4.8 [facility] Lymphocytes/100 WBC Auto (Bl d)Ordered By: Zhou Fischer on 01-26-2023 Lymphocytes/100 WBC (Bld) 29.7 % . [facility] MCH Auto (RBC) [Entitic mass ]Ordered By: Zhou Fischer on 01-26-2023 MCH (RBC) [Entitic mass] 31.1 pg 27.5-35.2 [facility] MCHC Auto (RBC) [Mass/Vol]Or dered By: Zhou Fischer on 01-26-2023 MCHC (RBC) [Mass/Vol] 34.9 g/dL 32.5-35.6 [facility] MCV Auto (RBC) [Entitic vol] Ordered By: Zhou Fischer on 01-26-2023 MCV (RBC) [Entitic vol] 89.2 fL 83.5-101 [facility] Monocytes Auto (Bld) [#/Vol] Ordered By: Zhou Fischer on 01-26-2023 Monocytes (Bld) [#/Vol] 0.5 10*3/uL 0.0-0.8 [facility] Monocytes/100 WBC Auto (Bld) Ordered By: Zhou Fischer on 01-26-2023 Monocytes/100 WBC (Bld) 8.7 % . [facility] Neutrophils Auto (Bld) [#/Vo l]Ordered By: Zhou Fischer on 01-26-2023 Neutrophils (Bld) [#/Vol] 3.3 10*3/uL 1.8-7.7 [facility] Neutrophils/100 WBC Auto (Bl d)Ordered By: Zhou Fischer on 01-26-2023 Neutrophils/100 WBC (Bld) 58.4 % . [facility] No Panel InformationOrdered By: Zhou Fischer on 01-26-2023 Estimated GFR (CKD-EPI) > 60.0 mL/Min [facility] Creatinine Clearance (Chem N/A [facility] Nucleated erythrocytes [Pres ence] in Blood by Automated countOrdered By: Zhou Fischer on 01-26-2023 Nucleated RBC Auto Ql (Bld) 0.1 /100{WBC} 0-0.5 [facility] Platelet mean volume Auto (B ld) [Entitic vol]Ordered By: Zhou Fischer on 01-26-2023 Platelet mean volume (Bld) [Entitic vol] 8.3 fL 6.6-10.1 [facility] Platelets Auto (Bld) [#/Vol] Ordered By: Zhou Fischer on 01-26-2023 Platelets (Bld) [#/Vol] 288 10*3/uL 150-450 [facility] Protein [Mass/volume] in Ser um or PlasmaOrdered By: Zhou Fischer on 01-26-2023 Protein [Mass/Vol] 6.6 g/dL 6.4-8.9 [facility] RBC Auto (Bld) [#/Vol]Ordere d By: Zhou Fischer on 01-26-2023 RBC (Bld) [#/Vol] 4.61 10*6/uL 3.90-5.60 [facility] Serum or plasma albumin/glob ulin mass ratioOrdered By: Zhou Fischer on 01-26-2023 Albumin/Globulin [Mass ratio] 1.9 {ratio} [facility] Serum or plasma non-glucuron idated bilirubin measurement (mass/volume)Ordered By: Zhou Fischer on 01-26-2023 Bilirubin.indirect [Mass/Vol] 0.4 mg/dL [facility] WBC Auto (Bld) [#/Vol]Ordere d By: Zhou Fischer on 01-26-2023 WBC (Bld) [#/Vol] 5.6 10*3/uL 4.1-10.5 [facility] CNOVon 01-20-2023 CNOV Office Visit (UROSMN) TIMUR FRANCISCO ([id number]) 1950 M Date Time Provider Department 01/20/23 4:15 PM NANCI CARVAJAL During your visit today, we recorded the following information about you: Leonora Ashby RN 01/20/2023 4:30 PM Signed Actual procedure/procedure scheduled: Yes Performing provider/scheduled provider: Yes Patient was roomed in: Q9- 06 [place] Extension Agent offered:declined Patient arrived in the room at: 1550 Patient ready for procedure: 1610 The procedure started at ( Time Only): 1625 The procedure ended at: 1629 Was the procedure delayed: No The patient left the procedure room at: 1655 Leonora Ashby RN PRE PROCEDURE ASSESSMENT- Cysto Procedure Indication: Cystoscopy Latex Allergy: No Allergies reviewed and updated. Yes Pre-Procedure Vital Signs: BP: 115/77 Pulse: 90 Heart valve replacement: No Joint replacement: Yes right Back Office UA otained: yes PROCEDURE PREP-Cysto Patient ID with two(2)identifiers verified by: Leonora Ashby RN Pre-Procedure Antibiotics: None taken at home nor prior to procedure Patient Prep: Betadine Scrub to perineum and placement of Sterile Drape. COMPLETED Anesthetic Given:10 cc 2% Lidocaine jelly Leonora Ashby RN UNIVERSAL PROTOCOL / SAFETY CHECKLIST Procedure to be performed: Cystoscopy Sign in Communication: Completed Time Out: Team Confirms the Correct Patient, Correct Procedure, Correct Site and Site Marking, Correct Position (if applicable). Sign Out Discussion: Completed Leonora Ashby RN POST PROCEDURE NURSE ASSESSMENT Present along with physician during procedure exam. Leonora Ashby RN Instruction sheet given and reviewed and patient verbalizes understanding: yes Post Procedure Antibiotic: none Current pain intensity is 0 on a 0-10 pain scale. Leonora Ashby RN AMBULATORY PATIENT EDUCATION THE FOLLOWING WAS EVALUATED Motivation To Learn: Interested Family/Significant Other Support: None - Unavailable/disinter ested Cognitive Ability: Alert/Oriented Method of Instruction: Individual instruction Written instruction - handouts Verbal instruction The Following Influencing Factors Were Barriers To This Education Session: None The Following Physical Limitations Were Barriers To This Education Session: None Instruction Provided To: Patient Shipping Technician Present: not applicable Discipline: Nursing Learning Topic: SURVIVAL SKILLS: Complication Prevention Symptom Management Patient Evaluation: Verbalizes understanding: Yes Supplemental Material Given: None Instructed By Leonora Ashby RN In Department Urology . Nanci Carvajal MD 01/20/2023 4:51 PM Signed PHYSICIANS NOTE: CYSTOSCOPY PROCEDURE: January 20, 2023 Sign In History and Physical Exam reviewed and is unchanged. Primary Diagnosis: Encounter for follow-up surveillance of bladder cancer (primary encounter diagnosis) History of bladder cancer Informed Consent Discussed: Yes. Risks, benefits, alternatives and personnel discussed with patient who consents to proceed. Sign in Communication: Completed Time Out: Team Confirms the Correct Patient, Correct Procedure; Cystoscopy, Correct Site and Site Marking (not applicable), Correct Position. Affirmation of Time Out: YES Sign Out: Sign Out Discussion: Completed Prior patient of Dr. 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/p TURBT 12/07/2019 - path benign S/p s/p cystoscopy w/ cysview, bilateral ureteral washings and retrograde pyelography, and bladder and prostatic fossa biopsies on 07/25/2020 - path CIS S/p BCG x6, finishing 10/01/2020 S/p maintenance BCG, finishing 03/05/2021 Last cystoscopy 10/21/2022 CT Urogram 04/2022 - no urothelial lesions, diffuse diverticulosis Details of Procedure: After sterile prep and drape, the flexible cystoscope was placed through the urethra which was examined in its entirety. Urethral stricture: None The entire mucosa was examined. The scope was flexed in the dome of the bladder and used to look at the bladder in retroverted fashion. Findings: No mucosal lesions or papillary tumors Prior resection sites noted without recurrence Normal UOs bilaterally Prostate noted +TUR defect Normal urethra The scope was removed with a repeat examination of the prostate and penile urethra done during removal. Plan - urine cytology - CT Urogram May 2023 - cystoscopy May 2023 MD Isma Bonilla Therese L, RN 01/20/2023 4:32 PM Signed UNIVERSAL PROTOCOL / SAFETY CHECKLIST Procedure to be Performed: cystoscopy Sign In: A Moment of CARE was completed. Personnel directly involved with the procedure wore the appropriate PPE (Personal Protective Equipment). Patient/Surrogate Stated/Verified: PATIENT VERIFIED(optional for EMERGENT procedures): Patient name, Date of (more content not included)... Normal [facility] CYTOLOGY NON-GYNon CASE REPORT Normal [facility] Comment on above: Order Comment: Speci men Type: FLUID SPECIMENOrdering Facility: [facility] Address: [address] [place] [address] Result Comment: [facility] Cytology Report Case: [id number] Authorizing Provider: Nanci Carvajal MD Collected: 01/20/2023 04:32 PM Ordering Location: Urology Received: 01/20/2023 08:25 PM Pathologist: Madelyn Vogel MD Specimen: URINE VOIDED Performed By: #### C YTONON ####[facility] LABCLIA [id number] [address] STATES OF [facility] CLINICAL HISTORY erika Normal [facility] Comment on above: Order Comment: Speci men Type: FLUID SPECIMENOrdering Facility: [facility] Address: [address] [place] [address] Performed By: #### C YTONON ####[facility] LABCLIA [id number] [address] STATES [facility] FINAL DIAGNOSIS Normal [facility] Comment on above: Order Comment: Speci men Type: FLUID SPECIMENOrdering Facility: [facility] Address: [address] [place] [address] Result Comment: A - URINE VOIDED High-grade urothelial carcinoma. Performed By: #### C YTONON ####[facility] LABCLIA [id number] [address] STATES OF [place] FINAL PERFORMING LAB Normal [facility] Comment on above: Order Comment: Speci men Type: FLUID SPECIMENOrdering Facility: [facility] Address: [address] [place] [address] Result Comment: Tech nical component, table setter screening performed at [facility], [address] [address] CLIA# [id number] Diagnostic interpretation performed at [facility], [facility] [address] CLIA# [id number] Guest Experience Captain: Reid Monteiro M.D. Performed By: #### C YTONON ####[facility] LABCLIA [id number] [address] OF [facility] GROSS DESCRIPTION A. URINE VOIDED Normal Cl [facility] Comment on above: Order Comment: Speci men Type: FLUID SPECIMENOrdering Facility: [facility] Address: [address] [address] Result Comment: 100 cc hazy light yellow fluid. ThinPrep prepared. Performed By: #### C YTONON ####[facility] LABCLIA [id number] [address] STATES OF [place] Alanine aminotransferase [En zymatic activity/volume] in Serum or PlasmaOrdered By: Zhou Fischer on 01-12-2023 ALT [Catalytic activity/Vol] 40 U/L 7-52 [facility] Albumin [Mass/volume] in Ser um or Plasma by Bromocresol green (BCG) dye binding methoOrdered By: Zhou Fischer on 01-12-2023 Albumin BCG dye [Mass/Vol] 4.4 g/dL 3.5-5.7 [facility] Alkaline phosphatase [Enzyma tic activity/volume] in Serum or PlasmaOrdered By: Zhou Fischer on 01-12-2023 ALP [Catalytic activity/Vol] 69 U/L 34-104 [facility] Aspartate aminotransferase [ Enzymatic activity/volume] in Serum or PlasmaOrdered By: Zhou Fischer on 01-12-2023 AST [Catalytic activity/Vol] 27 U/L 13-39 [facility] Basophils Auto (Bld) [#/Vol] Ordered By: Zhou Fischer on 01-12-2023 Basophils (Bld) [#/Vol] 0.0 10*3/uL 0.0-0.2 [facility] Basophils/100 WBC Auto (Bld) Ordered By: Zhou Fischer on 01-12-2023 Basophils/100 WBC (Bld) 0.6 % . [facility] Bilirubin.direct [Mass/volum e] in Serum or PlasmaOrdered By: Zhou Fischer on 01-12-2023 Bilirubin.direct [Mass/Vol] 0.10 mg/dL 0.03-0.18 [facility] Bilirubin.total [Mass/volume ] in Serum or PlasmaOrdered By: Zhou Fischer on 01-12-2023 Bilirubin [Mass/Vol] 0.6 mg/dL 0.3-1.0 [facility] Complete Blood Count Auto Di ffon 01-12-2023 Basophils (Bld) [#/Vol] 0.0 10*3/uL Normal 0.0-0.2 [facility] Comment on above: Performed By: #### C BC, CREAT, HEPATIC, ESR #### [facility] [address] Basophils/100 WBC (Bld) 0.6 % Normal . T lina [facility] Comment on above: Performed By: #### C BC, CREAT, HEPATIC, ESR #### [facility] [address] [place] [address] [place] Eosinophils (Bld) [#/Vol] 0.1 10*3/uL Normal 0.0-0.45 [facility] Comment on above: Performed By: #### C BC, CREAT, HEPATIC, ESR #### [facility] [address] [place] [address] [place] Eosinophils/100 WBC (Bld) 2.3 % Normal . [facility] Comment on above: Performed By: #### C BC, CREAT, HEPATIC, ESR #### [facility] [address] Erythrocyte distribution width (RBC) [Ratio] 13.5 % Normal 12.0-14.8 [facility] Comment on above: Performed By: #### C BC, CREAT, HEPATIC, ESR #### [facility] [address] [place] [address] [place] Hematocrit (Bld) [Volume fraction] 41.6 % Normal 38.8-50.0 [facility] Comment on above: Performed By: #### C BC, CREAT, HEPATIC, ESR #### [address] Hemoglobin (Bld) [Mass/Vol] 14.4 g/dL Normal 13.0-17.0 [facility] Comment on above: Performed By: #### C BC, CREAT, HEPATIC, ESR #### [address] Lymphocytes (Bld) [#/Vol] 1.4 10*3/uL Normal 1.00-4.8 [facility] Comment on above: Performed By: #### C BC, CREAT, HEPATIC, ESR #### [address] Lymphocytes/100 WBC (Bld) 25.3 % Normal . [facility] Comment on above: Performed By: #### C BC, CREAT, HEPATIC, ESR #### [address] MCH (RBC) [Entitic mass] 30.9 pg Normal 27.5-35.2 [facility] Comment on above: Performed By: #### C BC, CREAT, HEPATIC, ESR #### [address] MCV (RBC) [Entitic vol] 89.4 fL Normal 83.5-101 T he [facility] Comment on above: Performed By: #### C BC, CREAT, HEPATIC, ESR #### [address] Mean Corpuscular HGB Conc 34.5 g/dL Normal 32.5-35.6 [facility] Comment on above: Performed By: #### C BC, CREAT, HEPATIC, ESR #### [address] Monocytes (Bld) [#/Vol] 0.5 10*3/uL Normal 0.0-0.8 [facility] Comment on above: Performed By: #### C BC, CREAT, HEPATIC, ESR #### [address] Monocytes/100 WBC (Bld) 9.1 % Normal . T he [facility] Comment on above: Performed By: #### C BC, CREAT, HEPATIC, ESR #### [address] Neutrophils (Bld) [#/Vol] 3.4 10*3/uL Normal 1.8-7.7 [facility] Comment on above: Performed By: #### C BC, CREAT, HEPATIC, ESR #### [address] Neutrophils/100 WBC (Bld) 62.7 % Normal . [facility] Comment on above: Performed By: #### C BC, CREAT, HEPATIC, ESR #### [address] NRBC% 0.1 /100{WBC} Normal 0-0.5 [facility] Comment on above: Performed By: #### C BC, CREAT, HEPATIC, ESR #### [address] Platelet mean volume (Bld) [Entitic vol] 8.2 fL Normal 6.6-10.1 [facility] Comment on above: Performed By: #### C BC, CREAT, HEPATIC, ESR #### [place] [address] [place] Platelets (Bld) [#/Vol] 291 10*3/uL Normal 150-450 [facility] Comment on above: Performed By: #### C BC, CREAT, HEPATIC, ESR #### [place] [address] [place] RBC (Bld) [#/Vol] 4.65 10*6/uL Normal 3.90-5.60 [facility] Comment on above: Performed By: #### C BC, CREAT, HEPATIC, ESR #### [address] [address] [place] WBC (Bld) [#/Vol] 5.5 10*3/uL Normal 4.1-10.5 [facility] Comment on above: Performed By: #### C BC, CREAT, HEPATIC, ESR #### [facility] [address] Creatinineon 01-12-2023 Creatinine [Mass/Vol] 0.94 mg/dL Normal 0.70-1.30 [facility] Comment on above: Performed By: #### C BC, CREAT, HEPATIC, ESR #### [facility] [address] GFR/1.73 sq M.predicted MDRD (S/P/Bld) [Vol rate/Area] mL/min/{1.73_m2} Normal [facility] Comment on above: Result Comment: PERF ORMED BY: [place] [address] PATHOLOGIST RV REPAIRER LIZANDRO HOFF M.D. Performed By: #### C BC, CREAT, HEPATIC, ESR #### [facility] [address] [place] [address] Creatinine [Mass/volume] in Serum or PlasmaOrdered By: Zhou Fischer on 01-12-2023 Creatinine [Mass/Vol] 0.94 mg/dL 0.70-1.30 [facility] Eosinophils Auto (Bld) [#/Vo l]Ordered By: Zhou Fischer on 01-12-2023 Eosinophils (Bld) [#/Vol] 0.1 10*3/uL 0.0-0.45 [facility] Eosinophils/100 WBC Auto (Bl d)Ordered By: Zhou Fischer on 01-12-2023 Eosinophils/100 WBC (Bld) 2.3 % . [facility] Erythrocyte Sedimentation Ra pennie 01-12-2023 ESR (Bld) [Velocity] 5 mm/h Normal 0-19 [facility] Comment on above: Result Comment: PERF ORMED BY: [place] [address] PATHOLOGIST RV REPAIRER LIZANDRO HOFF M.D. Performed By: #### C BC, CREAT, HEPATIC, ESR #### [facility] [address] Erythrocyte distribution wid th Auto (RBC) [Ratio]Ordered By: Zhou Fischer on 01-12-2023 Erythrocyte distribution width (RBC) [Ratio] 13.5 % 12.0-14.8 [facility] Erythrocyte sedimentation ra te by Photometric methodOrdered By: Zhou Fischer on 01-12-2023 ESR Photometric method (Bld) [Velocity] 5 mm/hr 0-19 [facility] Globulin Calc (S) [Mass/Vol] Ordered By: Zhou Fischer on 01-12-2023 Globulin (S) [Mass/Vol] 2.5 g/dL [facility] Hematocrit Auto (Bld) [Volum e fraction]Ordered By: Zhou Fischer on 01-12-2023 Hematocrit (Bld) [Volume fraction] 41.6 % 38.8-50.0 [facility] Hemoglobin [Mass/volume] in BloodOrdered By: Zhou Fischer on 01-12-2023 Hemoglobin (Bld) [Mass/Vol] 14.4 g/dL 13.0-17.0 [facility] Hepatic Panelon 01-12-2023 Albumin [Mass/Vol] 4.4 g/dL Normal 3.5-5.7 [facility] Comment on above: Performed By: #### C BC, CREAT, HEPATIC, ESR #### [facility] [address] [place] [address] [place] Albumin/Globulin [Mass ratio] 1.8 {ratio} Normal [facility] Comment on above: Performed By: #### C BC, CREAT, HEPATIC, ESR #### [facility] [address] [place] [id number] [place] ALP [Catalytic activity/Vol] 69 U/L Normal 34-104 [facility] Comment on above: Performed By: #### C BC, CREAT, HEPATIC, ESR #### [facility] [address] [id number] [facility] ALT [Catalytic activity/Vol] 40 U/L Normal 7-52 [facility] Comment on above: Performed By: #### C BC, CREAT, HEPATIC, ESR #### [address] AST [Catalytic activity/Vol] 27 U/L Normal 13-39 [facility] Comment on above: Performed By: #### C BC, CREAT, HEPATIC, ESR #### [address] Bilirubin [Mass/Vol] 0.6 mg/dL Normal 0.3-1.0 [facility] Comment on above: Performed By: #### C BC, CREAT, HEPATIC, ESR #### [address] Bilirubin,Indirect 0.5 mg/dL Normal [facility] Comment on above: Performed By: #### C BC, CREAT, HEPATIC, ESR #### [address] Bilirubin.indirect [Mass/Vol] 0.10 mg/dL Normal 0.03-0.18 [facility] Comment on above: Performed By: #### C BC, CREAT, HEPATIC, ESR #### [address] Globulin (S) [Mass/Vol] 2.5 g/dL Normal [facility] Comment on above: Performed By: #### C BC, CREAT, HEPATIC, ESR #### [address] Protein [Mass/Vol] 6.9 g/dL Normal 6.4-8.9 [facility] Comment on above: Performed By: #### C BC, CREAT, HEPATIC, ESR #### [address] Leukocytes [#/volume] correc basim for nucleated erythrocytes in Blood by Automated counOrdered By: Zhou Fischer on 01-12-2023 WBC corrected for nucl RBC Auto (Bld) [#/Vol] 5.5 10*3/uL 4.1-10.5 [facility] Lymphocytes Auto (Bld) [#/Vo l]Ordered By: Zhou Fischer on 01-12-2023 Lymphocytes (Bld) [#/Vol] 1.4 10*3/uL 1.00-4.8 [facility] Lymphocytes/100 WBC Auto (Bl d)Ordered By: Zhou Fischer on 01-12-2023 Lymphocytes/100 WBC (Bld) 25.3 % . [facility] MCH Auto (RBC) [Entitic mass ]Ordered By: Zhou Fischer on 01-12-2023 MCH (RBC) [Entitic mass] 30.9 pg 27.5-35.2 [facility] MCHC Auto (RBC) [Mass/Vol]Or dered By: Zhou Fischer on 01-12-2023 MCHC (RBC) [Mass/Vol] 34.5 g/dL 32.5-35.6 Fir [facility] MCV Auto (RBC) [Entitic vol] Ordered By: Zhou Fischer on 01-12-2023 MCV (RBC) [Entitic vol] 89.4 fL 83.5-101 [facility] Monocytes Auto (Bld) [#/Vol] Ordered By: Zhou Fischer on 01-12-2023 Monocytes (Bld) [#/Vol] 0.5 10*3/uL 0.0-0.8 [facility] Monocytes/100 WBC Auto (Bld) Ordered By: Zhou Fischer on 01-12-2023 Monocytes/100 WBC (Bld) 9.1 % . [facility] Neutrophils Auto (Bld) [#/Vo l]Ordered By: Zhou Fischer on 01-12-2023 Neutrophils (Bld) [#/Vol] 3.4 10*3/uL 1.8-7.7 [facility] Neutrophils/100 WBC Auto (Bl d)Ordered By: Zhou Fischer on 01-12-2023 Neutrophils/100 WBC (Bld) 62.7 % . [facility] No Panel InformationOrdered By: Zhou Fischer on 01-12-2023 Estimated GFR (CKD-EPI) > 60.0 mL/Min [facility] Creatinine Clearance (Chem N/A [facility] Nucleated erythrocytes [Pres ence] in Blood by Automated countOrdered By: Zhou Fischer on 01-12-2023 Nucleated RBC Auto Ql (Bld) 0.1 /100{WBC} 0-0.5 [facility] Platelet mean volume Auto (B ld) [Entitic vol]Ordered By: Zhou Fischer on 01-12-2023 Platelet mean volume (Bld) [Entitic vol] 8.2 fL 6.6-10.1 [facility] Platelets Auto (Bld) [#/Vol] Ordered By: Zhou Fischer on 01-12-2023 Platelets (Bld) [#/Vol] 291 10*3/uL 150-450 [facility] Protein [Mass/volume] in Ser um or PlasmaOrdered By: Zhou Fischer on 01-12-2023 Protein [Mass/Vol] 6.9 g/dL 6.4-8.9 [facility] RBC Auto (Bld) [#/Vol]Ordere d By: Zhou Fischer on 01-12-2023 RBC (Bld) [#/Vol] 4.65 10*6/uL 3.90-5.60 [facility] Serum or plasma albumin/glob ulin mass ratioOrdered By: Zhou Fischer on 01-12-2023 Albumin/Globulin [Mass ratio] 1.8 {ratio} [facility] Serum or plasma non-glucuron idated bilirubin measurement (mass/volume)Ordered By: Zhou Fischer on 01-12-2023 Bilirubin.indirect [Mass/Vol] 0.5 mg/dL [facility] WBC Auto (Bld) [#/Vol]Ordere d By: Zhou Fischer on 01-12-2023 WBC (Bld) [#/Vol] 5.5 10*3/uL 4.1-10.5 [facility] Hep C Ab wRfx to Qnt PCRon 0 12-23-2022 Hepatitis C Virus Antibody Non-Reactive Normal Non Reactive [facility] Comment on above: Performed By: #### C BC, CREAT, HEPATIC, ESR #### [facility] [address] [place] [address] Interpretation Hepatitis C Normal . [facility] Comment on above: Result Comment: Not infected with HCV unless early or acute infection is suspected (which may be delayed in an immunocompromised individual), or other evidence exists to indicate HCV infection. Performed By: #### C BC, CREAT, HEPATIC, ESR #### [facility] [address] Hepatitis B Core Antibodyon 12-23-2022 Hepatitis B Core Antibody Negative Normal Negative [facility] Comment on above: Result Comment: Perf ormed at: - [facility] [id number] [employer]: Martin Forbes PhD, Phone: [phone] Performed By: #### C BC, CREAT, HEPATIC, ESR #### [address] Hepatitis B Surface Antibody on 12-23-2022 Hepatitis B Surface Antibody Non-Reactive Normal . [facility] Comment on above: Result Comment: Non Reactive: Inconsistent with immunity, less than 10 mIU/mL Reactive: Consistent with immunity, greater than 9.9 mIU/mL Performed By: #### C BC, CREAT, HEPATIC, ESR #### [address] Hepatitis B Surface Antigeno n 12-23-2022 HBsAg Screen Negative Normal Negative [facility] Comment on above: Result Comment: PERF ORMED BY: [place] [address] PATHOLOGIST RV REPAIRER LIZANDRO HOFF M.D. Performed By: #### C BC, CREAT, HEPATIC, ESR #### [address] Hepatitis B virus surface Ag [Presence] in Serum or Plasma by ImmunoassayOrdered By: Zhou Fischer on 12-23-2022 HBV surface Ag IA Ql Negative Negative [facility] Hepatitis C virus IgG Ab [Pr esence] in Serum or Plasma by ImmunoassayOrdered By: Zhou Fischer on 12-23-2022 HCV IgG IA Ql Non-Reactive Non Reactive [facility] No Panel InformationOrdered By: Zhou Fischer on 12-23-2022 Hepatitis B Core Total Antibody Negative Negative [facility] Comment on above: Performed at: CB - [facility] [address] [id number] Director: Martin Forbes PhD, Phone: [phone] Hepatitis C Interpretation See comment . [facility] Comment on above: Not infected with HC V unless early or acute infection issuspected (which may be delayed in an immunocompromisedindividual), or other evidence exists to indicate HCVinfection. Hepatitis C RNA Quantitative N/A [facility] Serum hepatitis B virus surf mariia antibody detectionOrdered By: Zhou Fischer on 12-23-2022 HBV surface Ab Ql (S) Non-Reactive . [facility] Comment on above: Non Reactive: Incons istent with immunity, less than 10 mIU/mL Reactive: Consistent with immunity, greater than 9.9 mIU/mL XR chest 2V*on 12-23-2022 XR chest 2V* [facility] Main [place] [address] [place] [address] XRay Report Signed Patient: Timur Francisco MR#: [id number] : 1950 Acct:[id number] Age/Sex: 71 / M ADM Date: 12/23/22 Loc: [facility] Room: Type: [facility] Attending Dr: Zhou Fischer MD Copies to: Zhou Fischer MD Ordering Provider: Zhou Fischer MD Date of Service: 12/23/22 XR/XR chest 2V*: RA/Immunosuppression Chest 2 views CLINICAL HISTORY: Medication change. History of rheumatoid arthritis. COMPARISON: None FINDINGS: Heart appears normal in size. No lung consolidation pneumothorax pleural effusion or free air. XR/XR chest 2V* IMPRESSION: NO ACUTE CARDIOPULMONARY ABNORMALITY. Impression dictated by: Horacio Geronimo Jr., D.O.12/23/2022 3:32 PM Dictation Location: [place] [address] Transcribed By: [facility] 12/23/22 153 Dictated By: Horacio Geronimo Jr, DO 12/23/22 1531 Signed By: 12/23/22 153 Normal [facility] Alanine aminotransferase [En zymatic activity/volume] in Serum or PlasmaOrdered By: Zhou Fischer on 12-16-2022 ALT [Catalytic activity/Vol] 33 U/L 7-52 [facility] Albumin [Mass/volume] in Ser um or Plasma by Bromocresol green (BCG) dye binding methoOrdered By: Zhou Fischer on 12-16-2022 Albumin BCG dye [Mass/Vol] 4.6 g/dL 3.5-5.7 [facility] Alkaline phosphatase [Enzyma tic activity/volume] in Serum or PlasmaOrdered By: Zhou Fischer on 12-16-2022 ALP [Catalytic activity/Vol] 73 U/L 34-104 [facility] Aspartate aminotransferase [ Enzymatic activity/volume] in Serum or PlasmaOrdered By: Zhou Fischer on 12-16-2022 AST [Catalytic activity/Vol] 26 U/L 13-39 [facility] Automated erythrocytes count in urine sediment (number/area)Ordered By: Zhou Fischer on 12-16-2022 RBC Auto (Urine sed) [#/Area] 1-2 [HPF] 0-4 [facility] Automated leukocytes count i n urine sediment (number/area)Ordered By: Zhou Fischer on 12-16-2022 WBC Auto (Urine sed) [#/Area] 0-1 [HPF] 0-4 [facility] Basophils Auto (Bld) [#/Vol] Ordered By: Zhou Fischer on 12-16-2022 Basophils (Bld) [#/Vol] 0.0 10*3/uL 0.0-0.2 [facility] Basophils/100 WBC Auto (Bld) Ordered By: Zhou Fischer on 12-16-2022 Basophils/100 WBC (Bld) 0.7 % . [facility] Bilirubin Auto test strip Ql (U)Ordered By: Zhou Fischer on 12-16-2022 Bilirubin Ql (U) Negative Negative [facility] [place] Bilirubin.total [Mass/volume ] in Serum or PlasmaOrdered By: Zhou Fischer on 12-16-2022 Bilirubin [Mass/Vol] 0.6 mg/dL 0.3-1.0 [facility] C reactive protein [Mass/vol ume] in Serum or PlasmaOrdered By: Zhou Fischer on 12-16-2022 CRP [Mass/Vol] < 0.5 mg/dL 0.0-0.5 [facility] C-Reactive Proteinon 023 CRP [Mass/Vol] mg/L Normal 0.0-0.5 [facility] Comment on above: Result Comment: PERF ORMED BY: [place] [address] PATHOLOGIST RV REPAIRER LIZANDRO HOFF M.D. Performed By: #### C 4, C3 #### [facility] , #### ESR, CMP, ADDONUAPLUS, CBC, CRP #### [facility] [address] Calcium [Mass/volume] in Ser um or PlasmaOrdered By: Zhou Fischer on 12-16-2022 Calcium [Mass/Vol] 9.5 mg/dL 8.6-10.3 [facility] [facility] Carbon dioxide, total [Moles /volume] in Serum or PlasmaOrdered By: Zhou Fischer on 12-16-2022 CO2 [Moles/Vol] 28.8 mmol/L 21.0-31.0 [facility] [place] Chloride [Moles/volume] in S honey or PlasmaOrdered By: Zhou Fischer on 12-16-2022 Chloride [Moles/Vol] 103 mmol/L 98-107 [facility] Complement C3on 12-16-2022 Complement C3 122 mg/dL Normal 82-167 [facility] Comment on above: Result Comment: Perf ormed at: - [facility] [address] [id number] [employer]: Martin Forbes PhD, Phone: [phone] Performed By: #### C 4, C3 #### [facility] , #### ESR, CMP, ADDONUAPLUS, CBC, CRP #### [facility] [address] [place] [address] [place] Complement C4on 12-16-2022 Complement C4 21 mg/dL Normal 12-38 [facility] Comment on above: Result Comment: PERF ORMED BY: [place] [address] PATHOLOGIST RV REPAIRER LIZANDRO HOFF M.D. Performed By: #### C BC, CREAT, HEPATIC, ESR #### [address] Complete Blood Count Auto Di ffon 12-16-2022 Basophils (Bld) [#/Vol] 0.0 10*3/uL Normal 0.0-0.2 [facility] Comment on above: Performed By: #### C 4, C3 #### [facility] , #### ESR, CMP, ADDONUAPLUS, CBC, CRP #### [address] Basophils/100 WBC (Bld) 0.7 % Normal . [facility] Comment on above: Performed By: #### C 4, C3 #### [facility] , #### ESR, CMP, ADDONUAPLUS, CBC, CRP #### [address] Eosinophils (Bld) [#/Vol] 0.1 10*3/uL Normal 0.0-0.45 [facility] Comment on above: Performed By: #### C 4, C3 #### [facility] , #### ESR, CMP, ADDONUAPLUS, CBC, CRP #### [address] Eosinophils/100 WBC (Bld) 2.3 % Normal . [facility] Comment on above: Performed By: #### C 4, C3 #### [facility] , #### ESR, CMP, ADDONUAPLUS, CBC, CRP #### [address] Erythrocyte distribution width (RBC) [Ratio] 13.5 % Normal 12.0-14.8 [facility] Comment on above: Performed By: #### C 4, C3 #### [facility] , #### ESR, CMP, ADDONUAPLUS, CBC, CRP #### [address] Hematocrit (Bld) [Volume fraction] 42.7 % Normal 38.8-50.0 [facility] Comment on above: Performed By: #### C 4, C3 #### [facility] , #### ESR, CMP, ADDONUAPLUS, CBC, CRP #### [address] Hemoglobin (Bld) [Mass/Vol] 14.7 g/dL Normal 13.0-17.0 [facility] Comment on above: Performed By: #### C 4, C3 #### [facility] , #### ESR, CMP, ADDONUAPLUS, CBC, CRP #### [address] Lymphocytes (Bld) [#/Vol] 1.6 10*3/uL Normal 1.00-4.8 [facility] Comment on above: Performed By: #### C 4, C3 #### [facility] , #### ESR, CMP, ADDONUAPLUS, CBC, CRP #### [address] Lymphocytes/100 WBC (Bld) 27.5 % Normal . [facility] Comment on above: Performed By: #### C 4, C3 #### [facility] , #### ESR, CMP, ADDONUAPLUS, CBC, CRP #### [address] MCH (RBC) [Entitic mass] 30.8 pg Normal 27.5-35.2 [facility] Comment on above: Performed By: #### C 4, C3 #### [facility] , #### ESR, CMP, ADDONUAPLUS, CBC, CRP #### [address] MCV (RBC) [Entitic vol] 89.6 fL Normal 83.5-101 [facility] Comment on above: Performed By: #### C 4, C3 #### [facility] , #### ESR, CMP, ADDONUAPLUS, CBC, CRP #### [address] Mean Corpuscular HGB Conc 34.4 g/dL Normal 32.5-35.6 [facility] Comment on above: Performed By: #### C 4, C3 #### [facility] , #### ESR, CMP, ADDONUAPLUS, CBC, CRP #### [address] Monocytes (Bld) [#/Vol] 0.5 10*3/uL Normal 0.0-0.8 [facility] Comment on above: Performed By: #### C 4, C3 #### [facility] , #### ESR, CMP, ADDONUAPLUS, CBC, CRP #### [address] Monocytes/100 WBC (Bld) 9.2 % Normal . [facility] Comment on above: Performed By: #### C 4, C3 #### [facility] , #### ESR, CMP, ADDONUAPLUS, CBC, CRP #### [address] Neutrophils (Bld) [#/Vol] 3.5 10*3/uL Normal 1.8-7.7 [facility] Comment on above: Performed By: #### C 4, C3 #### [facility] , #### ESR, CMP, ADDONUAPLUS, CBC, CRP #### [address] Neutrophils/100 WBC (Bld) 60.3 % Normal . [facility] Comment on above: Performed By: #### C 4, C3 #### [facility] , #### ESR, CMP, ADDONUAPLUS, CBC, CRP #### [address] NRBC% 0.1 /100{WBC} Normal 0-0.5 [facility] Comment on above: Performed By: #### C 4, C3 #### [facility] , #### ESR, CMP, ADDONUAPLUS, CBC, CRP #### [address] Platelet mean volume (Bld) [Entitic vol] 8.7 fL Normal 6.6-10.1 The [facility] Comment on above: Performed By: #### C 4, C3 #### [facility] , #### ESR, CMP, ADDONUAPLUS, CBC, CRP #### [address] Platelets (Bld) [#/Vol] 284 10*3/uL Normal 150-450 [facility] Comment on above: Performed By: #### C 4, C3 #### [facility] , #### ESR, CMP, ADDONUAPLUS, CBC, CRP #### [address] RBC (Bld) [#/Vol] 4.76 10*6/uL Normal 3.90-5.60 The [facility] Comment on above: Performed By: #### C 4, C3 #### [facility] , #### ESR, CMP, ADDONUAPLUS, CBC, CRP #### [facility] [address] [place] [address] WBC (Bld) [#/Vol] 5.8 10*3/uL Normal 4.1-10.5 The [facility] Comment on above: Performed By: #### C 4, C3 #### [facility] , #### ESR, CMP, ADDONUAPLUS, CBC, CRP #### [address] Comprehensive Metabolic Pane jonatan 12-16-2022 Albumin [Mass/Vol] 4.6 g/dL Normal 3.5-5.7 The [facility] Comment on above: Performed By: #### C 4, C3 #### [facility] , #### ESR, CMP, ADDONUAPLUS, CBC, CRP #### [address] Albumin/Globulin [Mass ratio] 2.2 {ratio} Normal The [facility] Comment on above: Performed By: #### C 4, C3 #### [facility] , #### ESR, CMP, ADDONUAPLUS, CBC, CRP #### [address] ALP [Catalytic activity/Vol] 73 U/L Normal 34-104 [facility] Comment on above: Performed By: #### C 4, C3 #### [facility] , #### ESR, CMP, ADDONUAPLUS, CBC, CRP #### [address] ALT [Catalytic activity/Vol] 33 U/L Normal 7-52 [facility] Comment on above: Performed By: #### C 4, C3 #### [facility] , #### ESR, CMP, ADDONUAPLUS, CBC, CRP #### [address] Anion gap [Moles/Vol] 10.7 mmol/L Normal 6.0-15.0 Th e [facility] Comment on above: Performed By: #### C 4, C3 #### [facility] , #### ESR, CMP, ADDONUAPLUS, CBC, CRP #### [address] AST [Catalytic activity/Vol] 26 U/L Normal 13-39 [facility] Comment on above: Performed By: #### C 4, C3 #### [facility] , #### ESR, CMP, ADDONUAPLUS, CBC, CRP #### [address] Bilirubin [Mass/Vol] 0.6 mg/dL Normal 0.3-1.0 [facility] Comment on above: Performed By: #### C 4, C3 #### [facility] , #### ESR, CMP, ADDONUAPLUS, CBC, CRP #### [address] Calcium [Mass/Vol] 9.5 mg/dL Normal 8.6-10.3 The [facility] Comment on above: Performed By: #### C 4, C3 #### [facility] , #### ESR, CMP, ADDONUAPLUS, CBC, CRP #### [address] Chloride [Moles/Vol] 103 mmol/L Normal 98-107 [facility] Comment on above: Performed By: #### C 4, C3 #### [facility] , #### ESR, CMP, ADDONUAPLUS, CBC, CRP #### [address] CO2 [Moles/Vol] 28.8 mmol/L Normal 21.0-31.0 [facility] Comment on above: Performed By: #### C 4, C3 #### [facility] , #### ESR, CMP, ADDONUAPLUS, CBC, CRP #### [address] Creatinine [Mass/Vol] 0.91 mg/dL Normal 0.70-1.30 [facility] Comment on above: Performed By: #### C 4, C3 #### [facility] , #### ESR, CMP, ADDONUAPLUS, CBC, CRP #### [address] GFR/1.73 sq M.predicted MDRD (S/P/Bld) [Vol rate/Area] mL/min/{1.73_m2} Normal [facility] Comment on above: Performed By: #### C 4, C3 #### [facility] , #### ESR, CMP, ADDONUAPLUS, CBC, CRP #### [address] Globulin (S) [Mass/Vol] 2.1 g/dL Normal T he [facility] Comment on above: Performed By: #### C 4, C3 #### [facility] , #### ESR, CMP, ADDONUAPLUS, CBC, CRP #### [address] Glucose [Mass/Vol] 89 mg/dL Normal 70-100 The [facility] Comment on above: Result Comment: [facility] Glucose Reference Range is dependent on time and content of last meal. Glucose of more than 200 mg/dL in a nonstressed, ambulatory subject supports the diagnosis of Diabetes Mellitus. ADA recommended reference range Performed By: #### C 4, C3 #### [facility] , #### ESR, CMP, ADDONUAPLUS, CBC, CRP #### [address] Potassium [Moles/Vol] 4.5 mmol/L Normal 3.5-5.1 [facility] Comment on above: Performed By: #### C 4, C3 #### [facility] , #### ESR, CMP, ADDONUAPLUS, CBC, CRP #### [address] Protein [Mass/Vol] 6.7 g/dL Normal 6.4-8.9 [facility] Comment on above: Performed By: #### C 4, C3 #### [facility] , #### ESR, CMP, ADDONUAPLUS, CBC, CRP #### [address] Sodium [Moles/Vol] 138 mmol/L Normal 136-145 [facility] Comment on above: Performed By: #### C 4, C3 #### [facility] , #### ESR, CMP, ADDONUAPLUS, CBC, CRP #### [address] Urea nitrogen [Mass/Vol] 13 mg/dL Normal 7-25 [facility] Comment on above: Performed By: #### C 4, C3 #### [facility] , #### ESR, CMP, ADDONUAPLUS, CBC, CRP #### [address] Creatinine [Mass/volume] in Serum or PlasmaOrdered By: Zhou Fischer on 12-16-2022 Creatinine [Mass/Vol] 0.91 mg/dL 0.70-1.30 [facility] Dipstick and Microscopicon 0 12-16-2022 Appearance (U) Clear Normal Clear The [facility] Comment on above: Order Comment: Name Collection Type:: Clean-Voided Midstream Performed By: #### C 4, C3 #### [facility] , #### ESR, CMP, ADDONUAPLUS, CBC, CRP #### [facility] [address] [place] [address] [place] Bacteria,Urine None Seen Normal None Seen [facility] Comment on above: Order Comment: Name Collection Type:: Clean-Voided Midstream Performed By: #### C 4, C3 #### [facility] , #### ESR, CMP, ADDONUAPLUS, CBC, CRP #### [place] [address] [place] Bilirubin,Urine Negative Normal Negative The [facility] Comment on above: Order Comment: Name Collection Type:: Clean-Voided Midstream Performed By: #### C 4, C3 #### [facility] , #### ESR, CMP, ADDONUAPLUS, CBC, CRP #### [address] Color (U) Yellow Normal Yellow [facility] Comment on above: Order Comment: Name Collection Type:: Clean-Voided Midstream Performed By: #### C 4, C3 #### [facility] , #### ESR, CMP, ADDONUAPLUS, CBC, CRP #### [address] Glucose Ql (U) Normal Normal Normal [facility] Comment on above: Order Comment: Name Collection Type:: Clean-Voided Midstream Performed By: #### C 4, C3 #### [facility] , #### ESR, CMP, ADDONUAPLUS, CBC, CRP #### [address] Hyaline Casts,Urine None Seen Normal 0-8 [facility] Comment on above: Order Comment: Name Collection Type:: Clean-Voided Midstream Result Comment: PERF ORMED BY: [place] [address] PATHOLOGIST RV REPAIRER LIZANDRO HOFF M.D. Performed By: #### C 4, C3 #### [facility] , #### ESR, CMP, ADDONUAPLUS, CBC, CRP #### [address] Ketones Ql (U) Negative Normal Negative [facility] Comment on above: Order Comment: Name Collection Type:: Clean-Voided Midstream Performed By: #### C 4, C3 #### [facility] , #### ESR, CMP, ADDONUAPLUS, CBC, CRP #### [address] Leukocyte esterase Test strip Ql (U) Negative Normal Negative [facility] Comment on above: Order Comment: Name Collection Type:: Clean-Voided Midstream Performed By: #### C 4, C3 #### [facility] , #### ESR, CMP, ADDONUAPLUS, CBC, CRP #### [place] [address] [place] Nitrite,Urine Negative Normal Negative [facility] Comment on above: Order Comment: Name Collection Type:: Clean-Voided Midstream Performed By: #### C 4, C3 #### [facility] , #### ESR, CMP, ADDONUAPLUS, CBC, CRP #### [place] [address] [place] Occult Blood,Urine Negative Normal Negative The [facility] Comment on above: Order Comment: Name Collection Type:: Clean-Voided Midstream Performed By: #### C 4, C3 #### [facility] , #### ESR, CMP, ADDONUAPLUS, CBC, CRP #### [place] [address] [place] pH (U) 5.5 [pH] Normal 5.0-9.0 [facility] Comment on above: Order Comment: Name Collection Type:: Clean-Voided Midstream Performed By: #### C 4, C3 #### [facility] , #### ESR, CMP, ADDONUAPLUS, CBC, CRP #### [place] [address] [place] Protein,Urine Negative Normal Negative [facility] Comment on above: Order Comment: Name Collection Type:: Clean-Voided Midstream Performed By: #### C 4, C3 #### [facility] , #### ESR, CMP, ADDONUAPLUS, CBC, CRP #### [place] [address] [place] RBC,Urine 1-2 Normal 0-4 [facility] Comment on above: Order Comment: Name Collection Type:: Clean-Voided Midstream Performed By: #### C 4, C3 #### [facility] , #### ESR, CMP, ADDONUAPLUS, CBC, CRP #### [address] Specificy [place],Urine 1.020 Normal 1.001-1.030 [facility] Comment on above: Order Comment: Name Collection Type:: Clean-Voided Midstream Performed By: #### C 4, C3 #### [facility] , #### ESR, CMP, ADDONUAPLUS, CBC, CRP #### [address] Squamous Epithelial Cell,Urine None Seen Normal 0-2 [facility] Comment on above: Order Comment: Name Collection Type:: Clean-Voided Midstream Performed By: #### C 4, C3 #### [facility] , #### ESR, CMP, ADDONUAPLUS, CBC, CRP #### [address] Urobilinogen,Urine Normal Normal Normal [facility] Comment on above: Order Comment: Name Collection Type:: Clean-Voided Midstream Performed By: #### C 4, C3 #### [facility] , #### ESR, CMP, ADDONUAPLUS, CBC, CRP #### [address] WBC LM.HPF (Urine sed) [#/Area] 0 /[HPF] Normal 0-4 [facility] Comment on above: Order Comment: Name Collection Type:: Clean-Voided Midstream Performed By: #### C 4, C3 #### [facility] , #### ESR, CMP, ADDONUAPLUS, CBC, CRP #### [address] Eosinophils Auto (Bld) [#/Vo l]Ordered By: Zhou Fischer on 12-16-2022 Eosinophils (Bld) [#/Vol] 0.1 10*3/uL 0.0-0.45 [facility] Eosinophils/100 WBC Auto (Bl d)Ordered By: Zhou Fischer on 12-16-2022 Eosinophils/100 WBC (Bld) 2.3 % . [facility] Erythrocyte Sedimentation Ra pennie 12-16-2022 ESR (Bld) [Velocity] 6 mm/h Normal 0-19 [facility] Comment on above: Result Comment: PERF ORMED BY: [facility] [address] [place] [address] PATHOLOGIST RV REPAIRER LIZANDRO HOFF M.D. Performed By: #### C 4, C3 #### [facility] , #### ESR, CMP, ADDONUAPLUS, CBC, CRP #### [facility] [address] Erythrocyte distribution wid th Auto (RBC) [Ratio]Ordered By: Zhou Fischer on 12-16-2022 Erythrocyte distribution width (RBC) [Ratio] 13.5 % 12.0-14.8 [facility] Erythrocyte sedimentation ra te by Photometric methodOrdered By: Zhou Fischer on 12-16-2022 ESR Photometric method (Bld) [Velocity] 6 mm/hr 0-19 [facility] Globulin Calc (S) [Mass/Vol] Ordered By: Zhou Fischer on 12-16-2022 Globulin (S) [Mass/Vol] 2.1 g/dL [facility] Glucose [Mass/volume] in Ser um or PlasmaOrdered By: Zhou Fischer on 12-16-2022 Glucose [Mass/Vol] 89 mg/dL 70-100 [facility] Comment on above: ADA recommended refe rence rangeRandom Glucose Reference Range is dependent on time and content of last meal. Glucose of more than 200 mg/dL in a nonstressed, ambulatory subject supports the diagnosis of Diabetes Mellitus. Hematocrit Auto (Bld) [Volum e fraction]Ordered By: Zhou Fischer on 12-16-2022 Hematocrit (Bld) [Volume fraction] 42.7 % 38.8-50.0 [facility] Hemoglobin [Mass/volume] in BloodOrdered By: Zhou Fischer on 12-16-2022 Hemoglobin (Bld) [Mass/Vol] 14.7 g/dL 13.0-17.0 [facility] Ketones Auto test strip (U) [Mass/Vol]Ordered By: Zhou Fischer on 12-16-2022 Ketones (U) [Mass/Vol] Negative Negative [facility] - UrinalysisOrder ed By: Zhou Fischer on 12-16-2022 Hyaline casts LM Ql (Urine sed) None seen [LPF] 0-8 [facility] Leukocytes [#/volume] correc basim for nucleated erythrocytes in Blood by Automated counOrdered By: Zhou Fischer on 12-16-2022 WBC corrected for nucl RBC Auto (Bld) [#/Vol] 5.8 10*3/uL 4.1-10.5 [facility] Lymphocytes Auto (Bld) [#/Vo l]Ordered By: Zhou Fischer on 12-16-2022 Lymphocytes (Bld) [#/Vol] 1.6 10*3/uL 1.00-4.8 [facility] Lymphocytes/100 WBC Auto (Bl d)Ordered By: Zohu Fischer on 12-16-2022 Lymphocytes/100 WBC (Bld) 27.5 % . [facility] MCH Auto (RBC) [Entitic mass ]Ordered By: Zhou Fischer on 12-16-2022 MCH (RBC) [Entitic mass] 30.8 pg 27.5-35.2 [facility] MCHC Auto (RBC) [Mass/Vol]Or dered By: Zhou Fischer on 12-16-2022 MCHC (RBC) [Mass/Vol] 34.4 g/dL 32.5-35.6 [facility] MCV Auto (RBC) [Entitic vol] Ordered By: Zhou Fischer on 12-16-2022 MCV (RBC) [Entitic vol] 89.6 fL 83.5-101 [facility] Monocytes Auto (Bld) [#/Vol] Ordered By: Zhou Fischer on 12-16-2022 Monocytes (Bld) [#/Vol] 0.5 10*3/uL 0.0-0.8 [facility] Monocytes/100 WBC Auto (Bld) Ordered By: Zhou Fischer on 12-16-2022 Monocytes/100 WBC (Bld) 9.2 % . [facility] Neutrophils Auto (Bld) [#/Vo l]Ordered By: Zhou Fischer on 12-16-2022 Neutrophils (Bld) [#/Vol] 3.5 10*3/uL 1.8-7.7 [facility] Neutrophils/100 WBC Auto (Bl d)Ordered By: Zhou Fischer on 12-16-2022 Neutrophils/100 WBC (Bld) 60.3 % . [facility] No Panel InformationOrdered By: Zhou Fischer on 12-16-2022 Estimated GFR (CKD-EPI) > 60.0 mL/Min [facility] Creatinine Clearance (Chem N/A [facility] Nucleated erythrocytes [Pres ence] in Blood by Automated countOrdered By: Zhou Fischer on 12-16-2022 Nucleated RBC Auto Ql (Bld) 0.1 /100{WBC} 0-0.5 [facility] Platelet mean volume Auto (B ld) [Entitic vol]Ordered By: Zhou Fischer on 12-16-2022 Platelet mean volume (Bld) [Entitic vol] 8.7 fL 6.6-10.1 [facility] Platelets Auto (Bld) [#/Vol] Ordered By: Zhou Fischer on 12-16-2022 Platelets (Bld) [#/Vol] 284 10*3/uL 150-450 [facility] Potassium [Moles/volume] in Serum or PlasmaOrdered By: Zhou Fischer on 12-16-2022 Potassium [Moles/Vol] 4.5 mmol/L 3.5-5.1 [facility] Protein Auto test strip (U) [Mass/Vol]Ordered By: Zhou Fischer on 12-16-2022 Protein (U) [Mass/Vol] Negative Negative [facility] Protein [Mass/volume] in Ser um or PlasmaOrdered By: Zhou Fischer on 12-16-2022 Protein [Mass/Vol] 6.7 g/dL 6.4-8.9 [facility] RBC Auto (Bld) [#/Vol]Ordere d By: Zhou Fischer on 12-16-2022 RBC (Bld) [#/Vol] 4.76 10*6/uL 3.90-5.60 [facility] Serum or plasma albumin/glob ulin mass ratioOrdered By: Zhou Fischer on 12-16-2022 Albumin/Globulin [Mass ratio] 2.2 {ratio} [facility] Serum or plasma anion gap de terminationOrdered By: Zhou Fischer on 12-16-2022 Anion gap [Moles/Vol] 10.7 mmol/L 6.0-15.0 [facility] Serum or plasma complement C 3 measurement (mass/volume)Ordered By: Zhou Fischer on 12-16-2022 Complement C3 [Mass/Vol] 122 mg/dL 82-167 [facility] Comment on above: Performed at: [address] [id number] Director: Martin Forbes PhD, Phone: [phone] Serum or plasma complement C 4 measurement (mass/volume)Ordered By: Zhou Fischer on 12-16-2022 Complement C4 [Mass/Vol] 21 mg/dL 12-38 [facility] Sodium [Moles/volume] in Ser um or PlasmaOrdered By: Zhou Fischer on 12-16-2022 Sodium [Moles/Vol] 138 mmol/L 136-145 [facility] Squamous epithelial cells de tection in urine sediment by light microscopyOrdered By: Zhou Fischer on 12-16-2022 Epithelial cells.squamous LM Ql (Urine sed) None seen [HPF] 0-2 [facility] Urea nitrogen [Mass/volume] in Serum or PlasmaOrdered By: Zhou Fischer on 12-16-2022 Urea nitrogen [Mass/Vol] 13 mg/dL 7-25 [facility] Urine appearanceOrdered By: Zhou Fischer on 12-16-2022 Appearance (U) Clear Clear [facility] Urine bacteria detection by automated methodOrdered By: Zhou Fischer on 12-16-2022 Bacteria Auto Ql (U) None seen None Seen [facility] Urine colorOrdered By: Mohamud Fischer on 12-16-2022 Color (U) Yellow Yellow [facility] Urine glucose measurement by automated test strip (mass/volume)Ordered By: Zhou Fischer on 12-16-2022 Glucose Auto test strip (U) [Mass/Vol] Normal mg/dL Normal [facility] Urine hemoglobin detection b y automated test stripOrdered By: Zhou Fischer on 12-16-2022 Hemoglobin Auto test strip Ql (U) Negative Negative [facility] Urine leukocyte esterase det ection by automated test stripOrdered By: Zhou Fischer on 12-16-2022 Leukocyte esterase Auto test strip Ql (U) Negative Negative [facility] Urine nitrite detection by a utomated test stripOrdered By: Zhou Fischer on 12-16-2022 Nitrite Auto test strip Ql (U) Negative Negative [facility] Urobilinogen Auto test strip (U) [Mass/Vol]Ordered By: Zhou Fischer on 12-16-2022 Urobilinogen (U) [Mass/Vol] Normal mg/dL Normal [facility] WBC Auto (Bld) [#/Vol]Ordere d By: Zhou Fischer on 12-16-2022 WBC (Bld) [#/Vol] 5.8 10*3/uL 4.1-10.5 [facility] pH Auto test strip (U)Ordere d By: Zhou Fischer on 12-16-2022 pH (U) 1.020 [pH] 1.001-1.030 [facility] pH (U) 5.5 [pH] 5.0-9.0 [facility] CULTURE URINEon 11-17-2022 CULTURE URINE Culture Observations: NO GROWTH. Normal [facility] Comment on above: Performed By: #### U RCX #### [facility] [address] [address] [address] Emily Copeland UA RANDOMon 11-17-2022 Bilirubin Ql (U) Negative Normal NEGATIVE [facility] Comment on above: Performed By: #### U A #### [facility] [address] [address] [address] Emily Copeland Clarity (U) CLEAR Normal CLEAR [facility] Comment on above: Performed By: #### U A #### [facility] [address] [place] [address] Dr. Emily Copeland Color (U) LT. YELLOW Normal YELLOW [facility] Comment on above: Performed By: #### U A #### [facility] [address] [place] [address] Dr. Emily Copeland Glucose Ql (U) Negative Normal NEGATIVE [facility] Comment on above: Performed By: #### U A #### [facility] [address] [place] [address] Dr. Emily Copeland Hemoglobin Ql (U) TRACE-INTACT Abnormal NEGATIVE [facility] Comment on above: Performed By: #### U A #### [facility] [address] [place] [address] Dr. Emily Copeland Ketones Ql (U) Negative Normal NEGATIVE [facility] Comment on above: Performed By: #### U A #### [facility] [address] [place] [address] Dr. Emily Copeland LEUKOCYTES Negative Normal NEGATIVE [facility] Comment on above: Performed By: #### U A #### [facility] [address] [place] [address] Dr. Emily Copeland Nitrite Ql (U) Negative Normal NEGATIVE [facility] Comment on above: Performed By: #### U A #### [facility] [address] [place] [address] Dr. Emily Copeland pH (U) 6.0 [pH] Normal 5-9 [facility] Comment on above: Performed By: #### U A #### [facility] [address] [place] [address] Dr. Emily Copeland SPEC GRAVITY 1.010 Normal 1.005-<=1.02 5 [facility] Comment on above: Performed By: #### U A #### [facility] [address] [place] [address] Dr. Emily Copeland UA PROTEIN Negative Normal NEGATIVE/ TRACE [facility] Comment on above: Performed By: #### U A #### [facility] [address] [place] [address] Dr. Emily Copeland Urobilinogen Qn (U) 0.2 {Eron'U}/dL Normal 0.2 - 1. 0 [facility] Comment on above: Performed By: #### U A #### [facility] [address] [address] [address] Emily Copeland UA DIP, URINE (POC)on 2022 BILIRUBIN UA (POCT) Negative Negative [facility] CLARITY UA (POCT) Clear [facility] COLOR UA (POCT) Yellow [facility] GLUCOSE UA (POCT) Negative Negative mg/dL [facility] HEMOGLOBIN/BLOOD UA (POCT) Negative Negative [facility] KETONE UA (POCT) Negative Negative mg/dL [facility] LEUKOCYTES UA (POCT) Negative Negative [facility] NITRITE UA (POCT) Negative [facility] UA (POCT) 6.5 4.5 - 8.0 [facility] Protein Ql (U) Negative Negative mg/dL [facility] SPECIFIC GRAVITY UA (POCT) 1.015 1.005 - 1.030 [facility] UROBILINOGEN UA (POCT) 0.2 E.U./dL [place] E.U./dL [facility] UA DIP, URINE (POC)on 2022 BILIRUBIN UA (POCT) Negative Negative [facility] CLARITY UA (POCT) [facility] COLOR UA (POCT) Yellow [facility] GLUCOSE UA (POCT) Negative Negative mg/dL [facility] HEMOGLOBIN/BLOOD UA (POCT) Negative Negative [facility] KETONE UA (POCT) Negative Negative mg/dL [facility] LEUKOCYTES UA (POCT) Negative Negative [facility] NITRITE UA (POCT) Negative Negative [facility] PH UA (POCT) 7.0 4.5 - 8.0 [facility] Protein Ql (U) Negative Negative mg/dL [facility] SPECIFIC GRAVITY UA (POCT) 1.015 1.005 - 1.030 [facility] UROBILINOGEN UA (POCT) 0.2 E.U./dL [place] E.U./dL [facility] Albumin [Mass/volume] in Ser um or PlasmaOrdered By: Zhou Fischer on 07-01-2022 Albumin [Mass/Vol] 4.3 g/dL 3.2-5.5 [facility] Automated erythrocytes count in urine sediment (number/area)Ordered By: Zhou Fischer on 07-01-2022 RBC Auto (Urine sed) [#/Area] None seen [HPF] 0-4 [facility] Automated leukocytes count i n urine sediment (number/area)Ordered By: Zhou Fischer on 07-01-2022 WBC Auto (Urine sed) [#/Area] None seen [HPF] 0-4 [facility] Basophils Auto (Bld) [#/Vol] Ordered By: Zhou Fischer on 07-01-2022 Basophils (Bld) [#/Vol] 0.0 10*3/uL 0.0-0.2 [facility] Basophils/100 WBC Auto (Bld) Ordered By: Zhou Fischer on 07-01-2022 Basophils/100 WBC (Bld) 0.4 % . [facility] Bilirubin Test strip Ql (U)O rdered By: Zhou Fischer on 07-01-2022 Bilirubin Ql (U) Negative Negative [facility] C reactive protein [Mass/vol ume] in Serum or PlasmaOrdered By: Zhou Fischer on 07-01-2022 CRP [Mass/Vol] 0.5 mg/dL 0.0-1.0 [facility] Color Auto (U)Ordered By: Laurie Fischer on 07-01-2022 Color (U) Yellow Yellow [facility] Creatine kinase [Enzymatic a ctivity/volume] in Serum or PlasmaOrdered By: Zhou Fischer on 07-01-2022 CK [Catalytic activity/Vol] 102 U/L 22-269 [facility] Creatinine and Glomerular fi ltration rate.predicted panel (S/P/Bld)Ordered By: Zhou Fischer on 07-01-2022 Creatinine [Mass/Vol] 0.93 mg/dL 0.64-1.27 [facility] Eosinophils Auto (Bld) [#/Vo l]Ordered By: Zhou Fischer on 07-01-2022 Eosinophils (Bld) [#/Vol] 0.1 10*3/uL 0.0-0.45 [facility] Eosinophils/100 WBC Auto (Bl d)Ordered By: Zhou Fischer on 07-01-2022 Eosinophils/100 WBC (Bld) 2.5 % . [facility] Erythrocyte distribution wid th Auto (RBC) [Ratio]Ordered By: Zhou Fischer on 07-01-2022 Erythrocyte distribution width (RBC) [Ratio] 13.9 % 12.0-14.8 [facility] Estimated glomerular filtrat ion rate (GFR) non- AmericanOrdered By: Zhou Fischer on 07-01-2022 GFR/1.73 sq M.predicted among non-blacks MDRD (S/P/Bld) [Vol rate/Area] > 60 mL/Min [facility] Globulin Calc (S) [Mass/Vol] Ordered By: Zhou Fischer on 07-01-2022 Globulin (S) [Mass/Vol] 2.5 g/dL F [facility] Hematocrit Auto (Bld) [Volum e fraction]Ordered By: Zhou Fischer on 07-01-2022 Hematocrit (Bld) [Volume fraction] 46.1 % 38.8-50.0 [facility] Hemoglobin [Mass/volume] in BloodOrdered By: Zhou Fischer on 07-01-2022 Hemoglobin (Bld) [Mass/Vol] 15.7 g/dL 13.0-17.0 [facility] Ketones Auto test strip (U) [Mass/Vol]Ordered By: Zhou Fischer on 07-01-2022 Ketones (U) [Mass/Vol] Negative Negative Fi [facility] - UrinalysisOrder ed By: Zhou Fischer on 07-01-2022 Hyaline casts LM Ql (Urine sed) None seen [LPF] 0-8 [facility] Leukocytes [#/volume] correc basim for nucleated erythrocytes in Blood by Automated counOrdered By: Zhou Fischer on 07-01-2022 WBC corrected for nucl RBC Auto (Bld) [#/Vol] 5.9 10*3/uL 4.1-10.5 [facility] Lymphocytes Auto (Bld) [#/Vo l]Ordered By: Zhou Fischer on 07-01-2022 Lymphocytes (Bld) [#/Vol] 1.5 10*3/uL 1.00-4.8 [facility] Lymphocytes/100 WBC Auto (Bl d)Ordered By: Zhou Fischer on 07-01-2022 Lymphocytes/100 WBC (Bld) 25.1 % . [facility] MCH Auto (RBC) [Entitic mass ]Ordered By: Zhou Fischer on 07-01-2022 MCH (RBC) [Entitic mass] 30.4 pg 27.5-35.2 [facility] MCHC Auto (RBC) [Mass/Vol]Or dered By: Zhou Fischer on 07-01-2022 MCHC (RBC) [Mass/Vol] 34.0 g/dL 32.5-35.6 Fir [facility] MCV Auto (RBC) [Entitic vol] Ordered By: Zhou Fischer on 07-01-2022 MCV (RBC) [Entitic vol] 89.5 fL 83.5-101 F [facility] Monocytes Auto (Bld) [#/Vol] Ordered By: Zhou Fischer on 07-01-2022 Monocytes (Bld) [#/Vol] 0.5 10*3/uL 0.0-0.8 [facility] Monocytes/100 WBC Auto (Bld) Ordered By: Zhou Fischer on 07-01-2022 Monocytes/100 WBC (Bld) 8.4 % . [facility] Neutrophils Auto (Bld) [#/Vo l]Ordered By: Zhou Fischer on 07-01-2022 Neutrophils (Bld) [#/Vol] 3.7 10*3/uL 1.8-7.7 [facility] Neutrophils/100 WBC Auto (Bl d)Ordered By: Zhou Fischer on 07-01-2022 Neutrophils/100 WBC (Bld) 63.6 % . [facility] Nitrite Test strip Ql (U)Ord ered By: Zhou Fischer on 07-01-2022 Nitrite Ql (U) Negative Negative [facility] No Panel InformationOrdered By: Zhou Fischer on 07-01-2022 Estimated GFR () > 60 mL/Min [facility] Comment on above: GFR estimated refere nce range: According to KDOQI guidelines, <60 ml/min/1.73m2 is sufficient to diagnose a patient with chronic kidney disease. Pharmacy Creatinine Clearance (Chem N/A [facility] Nucleated erythrocytes [Pres ence] in Blood by Automated countOrdered By: Zhou Fischer on 07-01-2022 Nucleated RBC Auto Ql (Bld) 0.1 /100{WBC} 0-0.5 [facility] Platelet mean volume Auto (B ld) [Entitic vol]Ordered By: Zhou Fischer on 07-01-2022 Platelet mean volume (Bld) [Entitic vol] 8.4 fL 6.6-10.1 [facility] Platelets Auto (Bld) [#/Vol] Ordered By: Zhou Fischer on 07-01-2022 Platelets (Bld) [#/Vol] 323 10*3/uL 150-450 [facility] Protein Auto test strip (U) [Mass/Vol]Ordered By: Zhou Fischer on 07-01-2022 Protein (U) [Mass/Vol] Negative Negative [facility] Protein [Mass/volume] in Ser um or PlasmaOrdered By: Zhou Fischer on 07-01-2022 Protein [Mass/Vol] 6.8 g/dL 6.1-7.9 [facility] RBC Auto (Bld) [#/Vol]Ordere d By: Zhou Fischer on 07-01-2022 RBC (Bld) [#/Vol] 5.15 10*6/uL 3.90-5.60 [facility] Serum or plasma alanine castelan otransferase measurement without P-5'-P (enzymatic activiOrdered By: Zhou Fischer on 07-01-2022 ALT No additional P-5'-P [Catalytic activity/Vol] 54 U/L 10-60 [facility] Serum or plasma albumin/glob ulin mass ratioOrdered By: Zhou Fischer on 07-01-2022 Albumin/Globulin [Mass ratio] 1.7 {ratio} [facility] Serum or plasma alkaline saurabh sphatase measurement (enzymatic activity/volume)Ordered By: Zhou Fischer on 07-01-2022 ALP [Catalytic activity/Vol] 73 U/L 32-92 [facility] Serum or plasma anion gap de terminationOrdered By: Zhou Fischer on 07-01-2022 Anion gap [Moles/Vol] 13.0 mmol/L 6.0-15.0 [facility] Serum or plasma aspartate am inotransferase measurement (enzymatic activity/volume)Ordered By: Zhou Fischer on 07-01-2022 AST [Catalytic activity/Vol] 35 U/L 10-42 [facility] Serum or plasma calcium adelso urement (mass/volume)Ordered By: Zhou Fischer on 07-01-2022 Calcium [Mass/Vol] 9.7 mg/dL 8.2-10.2 [facility] Serum or plasma chloride yannick surement (moles/volume)Ordered By: Zhou Fischer on 07-01-2022 Chloride [Moles/Vol] 99 mmol/L 95-114 [facility] Serum or plasma glucose adelso urement (mass/volume)Ordered By: Zhou Fischer on 07-01-2022 Glucose [Mass/Vol] 87 mg/dL 70-100 [facility] Comment on above: ADA recommended refe rence rangeRandom Glucose Reference Range is dependent on time and content of last meal. Glucose of more than 200 mg/dL in a nonstressed, ambulatory subject supports the diagnosis of Diabetes Mellitus. Serum or plasma intact parat hyroid hormone measurement (mass/volume)Ordered By: Zhou Fischer on 07-01-2022 Parathyrin.intact [Mass/Vol] 38.6 pg/mL 12-88 [facility] Serum or plasma potassium me asurement (moles/volume)Ordered By: Zhou Fischer on 07-01-2022 Potassium [Moles/Vol] 4.4 mmol/L 3.5-5.1 [facility] Serum or plasma sodium measu rement (moles/volume)Ordered By: Zhou Fischer on 07-01-2022 Sodium [Moles/Vol] 133 mmol/L 136-146 [facility] Serum or plasma total biliru bin measurement (mass/volume)Ordered By: Zhou Fischer on 07-01-2022 Bilirubin [Mass/Vol] 0.6 mg/dL 0.3-1.2 [facility] Serum or plasma total carbon dioxide measurement (moles/volume)Ordered By: Zhou Fischer on 07-01-2022 CO2 [Moles/Vol] 25.4 mmol/L 22.0-30.0 [facility] Serum or plasma urea nitroge n measurement (mass/volume)Ordered By: Zhou Fischer on 07-01-2022 Urea nitrogen [Mass/Vol] 13 mg/dL 9-23 [facility] Specific gravity Auto test s trip (U) [Rel density]Ordered By: Zhou Fischer on 07-01-2022 Specific gravity (U) [Rel density] 1.004 1.001-1.030 [facility] Squamous epithelial cells de tection in urine sediment by light microscopyOrdered By: Zhou Fischer on 07-01-2022 Epithelial cells.squamous LM Ql (Urine sed) None seen [HPF] 0-2 [facility] TSH DL <= 0.005 mIU/L QnOrde red By: Zhou Fischer on 07-01-2022 TSH Qn 1.31 m[IU]/L 0.45-5.33 [facility] Urine bacteria detection by automated methodOrdered By: Zhou Fischer on 07-01-2022 Bacteria Auto Ql (U) None seen None Seen [facility] Urine clarity by refractomet ry automatedOrdered By: Zhou Fischer on 07-01-2022 Clarity Refractometry automated (U) Clear Clear [facility] Urine glucose measurement by automated test strip (mass/volume)Ordered By: Zhou Fischer on 07-01-2022 Glucose Auto test strip (U) [Mass/Vol] Normal mg/dL Normal [facility] Urine hemoglobin detection b y automated test stripOrdered By: Zhou Fischer on 07-01-2022 Hemoglobin Auto test strip Ql (U) Negative Negative [facility] Urine leukocyte esterase det ection by automated test stripOrdered By: Zhou Fischer on 07-01-2022 Leukocyte esterase Auto test strip Ql (U) Negative Negative [facility] Urobilinogen Auto test strip (U) [Mass/Vol]Ordered By: Zhou Fischer on 07-01-2022 Urobilinogen (U) [Mass/Vol] Normal mg/dL Normal [facility] WBC Auto (Bld) [#/Vol]Ordere d By: Zhou Fischer on 07-01-2022 WBC (Bld) [#/Vol] 5.9 10*3/uL 4.1-10.5 [facility] pH Auto test strip (U)Ordere d By: Zhou Fischer on 07-01-2022 pH (U) 6.5 [pH] 5.0-9.0 [facility] ALLIED HEALTHon 05-15-2022 ALLIED HEALTH HNO ID: [id number] Author: Liss Hutton RT(R) Service: ? Author Type: Technologist Type: Allied Health Filed: 05/15/2022 8:28 AM Note Text: Radiology Service Progress Note DATE OF SERVICE: May 15, 2022 TIME: 8:28 AM PATIENT IDENTITY VERIFICATION COMPLETED USING TWO (2) STANDARD IDENTIFIERS: Name and Date of confirmed by patient verbally and Name and Date of confirmed by identification band. FALL SCREENING: Has the patient had 2 falls in the last year or 1 fall with injury or currently using an Ambulatory Assistive Device (Walker, Cane, Wheelchair, Crutches, etc.)? No PATIENT GENDER DATA: Male PATIENT RELEVANT IMPLANT DATA REVIEWED: Not Applicable ALLERGIES: Reviewed and unchanged CONTRAST ALLERGY: NO. EXAM: CT -CONTRAST INDUCED NEPHROPATHY RISK FACTORS: Patient age > 60 years CREATININE: Creatinine Date Value Ref Range Status 07/23/2020 0.93 0.73 - 1.22 mg/dL Final 05/04/2020 0.89 0.73 - 1.22 mg/dL Final 12/05/2019 0.96 0.73 - 1.22 mg/dL Final eGFR-All Other Races Date Value Ref Range Status 07/23/2020 >60 . Final Comment: eGFR (Estimated GFR) Units of measure: mL/min/1.73 meters squared eGFR is derived from the reexpressed MDRD Study equation using the following parameters: serum creatinine, age, gender and race. The creatinine assay has been calibrated to be traceable to IDMS. An eGFR <60 mL/min/1.73m2 for >3 months is consistent with chronic kidney disease. Refer to KDOQI guidelines for clinical interpretation. In patients with unstable renal function, e.g. those with acute kidney injury, the eGFR may not accurately reflect actual GFR. eGFR- Date Value Ref Range Status 07/23/2020 >60 Final P.O.C.T. RESULTS: POC done: Yes, See Lab Tab May 15, 2022 TREATMENT: N/A PERIPHERAL IV DATA: Ambulatory: A peripheral IV was started in the Right with a Angio cath: 20 gauge. RADIOLOGY DEPARTMENT: CT; Exam(s) Completed: Abdomen/Pelvis SIGNATURE: Liss Hutton, RT(R) PATIENT NAME: Timur Francisco DATE: May 15, 2022 TIME: 8:28 AM Normal [facility] CREATININE BLDon 05-15-2022 Creatinine [Mass/Vol] 0.97 mg/dL Normal 0.73-1.22 [facility] Comment on above: Order Comment: Alex ceron Type: BLOOD SPECIMEN Ordering Facility: [facility] Address: [address] [place] [address] Performed By: #### C RET1 #### [facility] CLIA [id number] OF [facility] ESTIMATED GLOMERULAR FILTRATION RATE 83 mL/min/1.73m??? Normal >=60 [facility] Comment on above: Order Comment: Alex ceron Type: BLOOD SPECIMEN Ordering Facility: [facility] Address: [address] [place] [address] Result Comment: Marsha mated Glomerular Filtration Rate (eGFR) is calculated using the 2020 CKD-EPI creatinine equation. This equation utilizes serum creatinine, sex, and age as parameters. The creatinine assay has traceable calibration to isotope dilution-mass spectrometry. Refer to KDIGO guidelines for clinical interpretation. In patients with unstable renal function, e.g. those with acute kidney injury, the eGFR may not accurately reflect actual GFR. Performed By: #### C RET1 #### [facility] CLIA [id number] [place] CT UROGRAM WO/W IVCONon 04-29 CT UROGRAM WO/W IVCON * * *Final Report* * * DATE OF EXAM: May 15 2022 8:37AM [facility] 0560 - CT UROGRAM WO/W IVCON / PROCEDURE REASON: multiple diagnoses * * * * Physician Interpretation * * * * EXAMINATION: CT ABDOMEN AND PELVIS WITHOUT AND WITH IV CONTRAST, INCLUDING EXCRETORY PHASE IMAGING (CT UROGRAM) 3D RECONSTRUCTIONS CLINICAL HISTORY: non-muscle invasive bladder cancer status post TURBT 12/07/2019 and BCG. TECHNIQUE: CT urogram protocol including unenhanced, renal parenchymal phase and excretory phase renal imaging was obtained following IV contrast. Normal saline was also administered IV. No oral contrast was given. 3D image post-processing was performed and archived at the request of the referring physician, on the CT scanner workstation without concurrent physician supervision. MQ: CTU_2 Contrast: IV: 110 ml of Omnipaque 350 IV Saline: 150 ml of 0.9% NACL Solution Oral Contrast: None CT Radiation dose: Integrated dose-length product (DLP) for this visit = 2614 mGy*cm. CT Dose Reduction Employed: Automated exposure control (AEC) COMPARISON: Noncontrast abdomen and pelvic CT dated 07/27/2020; CT urogram dated 05/04/2020 RESULT: Kidneys and urinary tract: Right: There are no renal calculi or masses. The opacified calices, renal pelvis and ureter are normal without dilation, filling defect, or stricture. Left: There are no renal calculi or masses. The opacified calices, renal pelvis and ureter are normal without dilation, filling defect, or stricture. Bladder: No filling defect, calculus, focal or diffuse wall thickening. Abdomen and Pelvis: Liver: No mass. There is diffusely fatty liver. Biliary: No bile duct dilation. The gallbladder is surgically absent. Spleen: No mass. No splenomegaly. Pancreas: No mass or duct dilation. Adrenals: No mass. GI tract: No dilation or wall thickening. There is diffuse sigmoid diverticulosis. There is mild nonspecific circumferential rectoanal bowel wall thickening. Suggest clinical correlation and GI follow-up. Lymph nodes: No abdominal or pelvic lymphadenopathy. Mesentery/Peritoneum : No ascites or mass. Retroperitoneum: No mass. Vasculature: The celiac axis and SMA are patent. The portal vein and branches, splenic vein, SMV, and hepatic veins are patent. Pelvis: No mass, ascites or fluid collection. Bones and Soft Tissues: Degenerative change. The patient is status post pedicle plate and screws fixation of the lumbosacral spine and right total hip arthroplasty, stable since 05/04/2020. Lower thorax: Images of the lung bases are clear. Manager English (topogram) images: No additional findings. IMPRESSION: NO HYDRONEPHROSIS OR NEPHROLITHIASIS. NO ABNORMALLY ENHANCED RENAL OR BLADDER MASS. DIFFUSE SIGMOID DIVERTICULOSIS AND MILD NONSPECIFIC CIRCUMFERENTIAL RECTOANAL BOWEL WALL THICKENING. SUGGEST CLINICAL CORRELATION AND GI FOLLOW-UP. Office Support Specialist: POOL Transcribe Date/Time: May 16 2022 9:28A Dictated by : TATIANA DWYER MD This examination was interpreted and the report reviewed and electronically signed by: TATIANA DWYER MD on May 16 2022 12:36PM EST [id number] CN Normal [facility] URINE CULTUREon 04-23-2022 Bacteria identified Cx Nom (U) No growth (<1,000 CFU/ml) [facility] LIANNE by IFAon 04-05-2022 Antinuclear Antibodies, IFA Positive Abnormal [facility] Comment on above: Result Comment: Nega tive <1:80 Borderline 1:80 Positive >1:80 Performed By: #### A NAIFA #### [facility] [address] [address] [address] Emily Copeland Centriole Pattern Normal [facility] Comment on above: Performed By: #### A NAIFA #### [facility] [address] [address] [address] Emily Copeland Centromere Pattern Normal [facility] Comment on above: Performed By: #### A NAIFA #### [facility] [address] [address] [address] Emily Copeland Homogeneous Pattern 1:320 Critically high [facility] Comment on above: Result Comment: ICAP nomenclature: AC-1 Performed By: #### A NAIFA #### [facility] [address] [address] [address] Emily Copeland Midbody Pattern Normal [facility] Comment on above: Performed By: #### A NAIFA #### [facility] [address] [address] [address] Emily Copeland Note: Comment Normal [facility] Comment on above: Result Comment: For more information about Hep-2 cell patterns use ANApatterns.org, the official website for the International Consensus on Antinuclear Antibody (LIANNE) Patterns (ICAP). A positive LIANNE result may occur in healthy individuals (low titer) or be associated with a variety of diseases. See interpretation chart which is not all inclusive: . Pattern Antigen Detected Suggested Disease Association Homogeneous DNA(ds,ss), SLE - High titers Nucleosomes, Histones Drug-induced SLE Speckled Sm, SURFACE GRINDING MACHINE HAND, SCL-70, SLE,MCTD,PSS (diffuse form), SS-A/SS-B Sjogrens Nucleolar SCL-70, PM-1/SCL High titers Scleroderma, PM/DM Centromere Centromere PSS (limited form) w/Crest syndrome variable Nuclear Dot [id number] Primary Biliary Cirrhosis Nuclear GP210, Primary Biliary Cirrhosis Membrane kacie A,B,C Performed By: #### A NAIFA #### [facility] [address] [place] [address] Dr. Emily Copeland Nuclear Dot Pattern Normal [facility] Comment on above: Performed By: #### A NAIFA #### [facility] [address] [place] [address] Dr. Emily Copeland Nuclear Membrane Pattern Normal [facility] Comment on above: Performed By: #### A NAIFA #### [facility] [address] [place] [address] Dr. Emily Copeland Nucleolar Pattern Normal [facility] Comment on above: Performed By: #### A NAIFA #### [facility] [address] [place] [address] Dr. Emily Copeland PCNA Pattern Normal [facility] Comment on above: Performed By: #### A NAIFA #### [facility] [address] [place] [address] Dr. Emily Copeland Speckled Pattern Normal [facility] Comment on above: Performed By: #### A NAIFA #### [facility] [address] [place] [address] Dr. Emily Copeland Spindle Apparatus Pattern Normal [facility] Comment on above: Performed By: #### A NAIFA #### [facility] [address] [place] [address] Dr. Emily Copeland ANTISTREPTOLYSIN O AB (ASO)o n 04-03-2022 Antistreptolysin O Ab 98.8 IU/mL Normal 0.0-200.0 [facility] Comment on above: Performed By: #### A SOAB #### [facility] [address] [place] [address] Dr. Emily Copeland CYTOLOGY NON-GYNon 2 Case Report Medical Cytology Report Case: [id number] Authorizing Provider: Nanci Carvajal MD Collected: 04/01/2022 04:04 PM Ordering Location: Urology Received: 04/01/2022 08:21 PM Pathologist: Tomás Andersen MD, PhD Specimen: URINE VOIDED [facility] Clinical History bladder cancer [facility] FINAL DIAGNOSIS A - URINE VOIDED Suspicious for high-grade urothelial carcinoma. [facility] Gross Description A. URINE VOIDED 80 cc clear yellow fluid. ThinPrep prepared. [facility] Performing Lab Technical component, table setter screening performed [facility] [address] CLIA# [id number] Diagnostic interpretation performed at [facility] [address] [facility] [address] CLIA# [id number] Guest Experience Captain: Reid Monteiro M.D. [facility] RHEUMATOID FACTORon 04-03-20 22 RA Latex Turbid. 18.0 IU/mL Critically high <14.0 [facility] Comment on above: Performed By: #### R F #### [facility] [address] [place] [address] Dr. Emily Copeland CBC AUTO DIFFon 04-02-2022 BASO # 0.0 103/ul Normal 0.0-0.1 [facility] Comment on above: Performed By: #### C BC #### [facility] [address] [place] [address] Dr. Emily Copeland Basophils/100 WBC (Bld) 0.6 % Normal 0.2-2.0 [facility] Comment on above: Performed By: #### C BC #### [facility] [address] [place] [address] Dr. Emily Copeland EO # 0.1 103/ul Normal 0.0-0.7 [facility] Comment on above: Performed By: #### C BC #### [facility] [address] [place] [address] Dr. Emily Copeland Eosinophils/100 WBC (Bld) 2.2 % Normal 0.9-7.0 [facility] Comment on above: Performed By: #### C BC #### [facility] [address] [place] [address] Dr. Emily Copeland Erythrocyte distribution width (RBC) [Ratio] 13.0 % Normal 11.0-15.0 [facility] Comment on above: Performed By: #### C BC #### [facility] [address] [place] [address] Dr. Emily Copeland Hematocrit (Bld) [Volume fraction] 45.1 % Normal 42.0-54.0 [facility] Comment on above: Performed By: #### C BC #### [facility] [address] [place] [address] Dr. Emily Copeland Hemoglobin (Bld) [Mass/Vol] 15.3 g/dL Normal 14.0-18.0 [facility] Comment on above: Performed By: #### C BC #### [facility] [address] [place] [address] Dr. Emily Copeland IG # 0.01 10e3/ul Normal 0.00-0.03 [facility] Comment on above: Performed By: #### C BC #### [facility] [address] [place] [address] Dr. Emily Copeland IG % 0.2 % Normal 0.0-0.5 [facility] Comment on above: Performed By: #### C BC #### [facility] [address] [place] [address] Dr. Emily Copeland LYMPH # 1.8 103/ul Normal 1.2-3.8 [facility] Comment on above: Performed By: #### C BC #### [facility] [address] [place] [address] Dr. Emily Copeland Lymphocytes/100 WBC (Bld) 29.0 % Normal 20.5-60.0 [facility] Comment on above: Performed By: #### C BC #### [facility] [address] [place] [address] Dr. Emily Copeland MANUAL DIFF REQ NO Normal [facility] Comment on above: Performed By: #### C BC #### [facility] [address] [place] [address] Dr. Emily Copeland MCH (RBC) [Entitic mass] 30.1 pg Normal 25.9-34.0 [facility] Comment on above: Performed By: #### C BC #### [facility] [address] [place] [address] Dr. Emily Copeland MCHC (RBC) [Mass/Vol] 33.9 g/dL Normal 29.9-35.2 [facility] Comment on above: Performed By: #### C BC #### [facility] [address] [place] [address] Dr. Emily Copeland MCV (RBC) [Entitic vol] 88.8 fL Normal 80.0-94.0 [facility] Comment on above: Performed By: #### C BC #### [facility] [address] [place] [address] Dr. Emily Copeland MONO # 0.7 103/ul Normal 0.3-0.8 [facility] Comment on above: Performed By: #### C BC #### [facility] [address] [place] [address] Dr. Emily Copeland Monocytes/100 WBC (Bld) 11.5 % Normal 1.7-12.0 [facility] Comment on above: Performed By: #### C BC #### [facility] [address] [place] [address] Dr. Emily Copeland NEUT # 3.6 103/ul Normal 1.4-6.5 [facility] Comment on above: Performed By: #### C BC #### [facility] [address] [place] [address] Dr. Emily Copeland Neutrophils/100 WBC (Bld) 56.5 % Normal 43.0-75.0 [facility] Comment on above: Performed By: #### C BC #### [facility] [address] [place] [address] Dr. Emily Copeland Platelet mean volume (Bld) [Entitic vol] 9.7 fL Normal 9.5-13.5 [facility] Comment on above: Performed By: #### C BC #### [facility] [address] [address] [address] Emily Copeland PLT 323 103/ul Normal 150-450 [facility] Comment on above: Performed By: #### C BC #### [facility] [address] [address] [address] Emily Copeland RBC 5.08 106/ul Normal 4.70-6.10 [facility] Comment on above: Performed By: #### C BC #### [facility] [address] [place] [address] Dr. Emily Copeland WBC 6.4 103/ul Normal 4.0-11.0 [facility] Comment on above: Performed By: #### C BC #### [facility] [address] [place] [address] Dr. Emily Copeland CRPon 04-02-2022 CRP [Mass/Vol] mg/L Normal <=1.0 [facility] Comment on above: Performed By: #### C RP, CMP, URIC #### [facility] [address] [place] [address] Dr. Emily Copeland PROF 14(COMP METB)on 022 Albumin [Mass/Vol] 4.0 g/dL Normal 3.4-5.0 [facility] Comment on above: Performed By: #### C RP, CMP, URIC #### [facility] [address] [place] [address] Dr. Emily Copeland Albumin/Globulin [Mass ratio] 1.2 {ratio} Normal [facility] Comment on above: Performed By: #### C RP, CMP, URIC #### [facility] [address] [place] [address] Dr. Emily Copeland ALP [Catalytic activity/Vol] 79 U/L Normal 46-116 [facility] Comment on above: Performed By: #### C RP, CMP, URIC #### [facility] [address] [place] [address] Dr. Emily Copeland ALT [Catalytic activity/Vol] 37 U/L Normal 16-63 [facility] Comment on above: Performed By: #### C RP, CMP, URIC #### [facility] [address] [address] [address] Emily Copeland Anion gap [Moles/Vol] 10.0 mmol/L Normal [facility] Comment on above: Performed By: #### C RP, CMP, URIC #### [facility] [address] [address] [address] Emily Copeland AST [Catalytic activity/Vol] 22 U/L Normal 15-37 [facility] Comment on above: Performed By: #### C RP, CMP, URIC #### [facility] [address] [place] [address] Dr. Emily Copeland Bilirubin [Mass/Vol] 0.6 mg/dL Normal 0.2-1.0 [facility] Comment on above: Performed By: #### C RP, CMP, URIC #### [facility] [address] [place] [address] Dr. Emily Copeland Calcium [Mass/Vol] 9.4 mg/dL Normal 8.5-10.1 [facility] Comment on above: Performed By: #### C RP, CMP, URIC #### [facility] [address] [place] [address] Dr. Emily Copeland Chloride [Moles/Vol] 103 mmol/L Normal 98-107 [facility] Comment on above: Performed By: #### C RP, CMP, URIC #### [facility] [address] [place] [address] Dr. Emily Copeland CO2 [Moles/Vol] 29.3 mmol/L Normal 21.0-32.0 [facility] Comment on above: Performed By: #### C RP, CMP, URIC #### [facility] [address] [place] [address] Dr. Emily Copeland Creatinine [Mass/Vol] 0.94 mg/dL Normal 0.70-1.30 [facility] Comment on above: Performed By: #### C RP, CMP, URIC #### [facility] [address] [place] [address] Dr. Emily Copeland EGFR-AF [place]THER[place]ISH >60 Normal >=60 [facility] Comment on above: Performed By: #### C RP, CMP, URIC #### [facility] [address] [place] [address] Dr. Emily Copeland EGFR-NON AF [place] >60 Normal >=60 [facility] Comment on above: Performed By: #### C RP, CMP, URIC #### [facility] [address] [place] [address] Dr. Emily Copeland Globulin (S) [Mass/Vol] 3.4 g/dL Normal T [facility] Comment on above: Performed By: #### C RP, CMP, URIC #### [facility] [address] [place] [address] Dr. Emily Copeland Glucose [Mass/Vol] 98 mg/dL Normal 74-106 [facility] Comment on above: Performed By: #### C RP, CMP, URIC #### [facility] [address] [place] [address] Dr. Emily Copeland Potassium [Moles/Vol] 4.3 mmol/L Normal 3.5-5.1 [facility] Comment on above: Performed By: #### C RP, CMP, URIC #### [facility] [address] [place] [address] Dr. Emily Copeland Protein [Mass/Vol] 7.4 g/dL Normal 6.4-8.2 [facility] Comment on above: Performed By: #### C RP, CMP, URIC #### [facility] [address] [place] [address] Dr. Emily Copeland Sodium [Moles/Vol] 138 mmol/L Normal 136-145 [facility] Comment on above: Performed By: #### C RP, CMP, URIC #### [facility] [address] [place] [address] Dr. Emily Copeland Urea nitrogen [Mass/Vol] 19.0 mg/dL Critically high 7.0-18.0 [facility] Comment on above: Performed By: #### C RP, CMP, URIC #### [facility] [address] [address] [address] Emily Copeland Urea nitrogen/Creatinine [Mass ratio] 20.2 mg/mg Normal [facility] Comment on above: Performed By: #### C RP, CMP, URIC #### [facility] [address] [address] [address] Emily Copeland URIC ACID SERUMon 04-02-2022 Urate [Mass/Vol] 5.2 mg/dL Normal 3.5-7.2 [facility] Comment on above: Performed By: #### C RP, CMP, URIC #### [facility] [address] [address] [address] Emily Copeland UA DIP, URINE (POC)on 2021 BILIRUBIN UA (POCT) Negative Negative [facility] CLARITY UA (POCT) Clear [facility] COLOR UA (POCT) Yellow [facility] GLUCOSE UA (POCT) Negative Negative mg/dL [facility] HEMOGLOBIN/BLOOD UA (POCT) Negative Negative [facility] KETONE UA (POCT) Negative Negative mg/dL [facility] LEUKOCYTES UA (POCT) Negative Negative [facility] NITRITE UA (POCT) Negative Negative [facility] PH UA (POCT) 6.0 4.5 - 8.0 [facility] Protein Ql (U) Negative Negative mg/dL [facility] SPECIFIC GRAVITY UA (POCT) 1.015 1.005 - 1.030 [facility] UROBILINOGEN UA (POCT) 0.2 E.U./dL [place] E.U./dL [facility] COVID-19, Rapidon 11-11-2021 Specimen Description .NASOPHARYNGEAL SWAB [facility] Flu A/B Ag Detectionon 11-11 Flu A Ag Detection Negative Normal NEG [facility] Comment on above: Result Comment: for Influenza A Antigen Performed By: #### F LUABA #### [facility] [address] [place] [address] [employer]: Zeinab Pink MD Flu B Ag Detection Negative Normal NEG [facility] Comment on above: Result Comment: for Influenza B Antigen. Performed By: #### F LUABA #### [facility] [address] [place] [address] [employer]: Zeinab Pink MD Rapid Influenza A/B Antigens on 11-11-2021 Flu A Antigen Negative NEGATIVE [facility] Comment on above: for Influenza A Anti gen Flu B Antigen Negative NEGATIVE [facility] Comment on above: for Influenza B Anti gen. [facility] [id number] 11-11-2021 SARS-CoV-2 (COVID-19) RNA BEN+probe Ql (Unsp spec) Not detected Normal NOTDET [facility] Comment on above: Rapid NAAT: The specimen is NEGATIVE for SARS-CoV-2, the novel coronavirus associated with COVID-19. The ID NOW COVID-19 assay is designed to detect the virus that causes COVID-19 in patients with signs and symptoms of infection who are suspected of COVID-19. An individual without symptoms of COVID-19 and who is not shedding SARS-CoV-2 virus would expect to have a negative (not detected) result in this assay. Negative results should be treated as presumptive and, if inconsistent with clinical signs and symptoms or necessary for patient management, should be tested with an alternative molecular assay. Negative results do not preclude SARS-CoV-2 infection and should not be used as the sole basis for patient management decisions. Fact sheet for Healthcare Providers: https://www.fda.gov/media/612683/download Fact sheet for Patients: https://www.fda.gov/media/658668/download Methodology: Isothermal Nucleic Acid Amplification Result Comment: Rapid NAAT: The specimen is NEGATIVE for SARS-CoV-2, the novel coronavirus associated with COVID-19. The ID NOW COVID-19 assay is designed to detect the virus that causes COVID-19 in patients with signs and symptoms of infection who are suspected of COVID-19. An individual without symptoms of COVID-19 and who is not shedding SARS-CoV-2 virus would expect to have a negative (not detected) result in this assay. Negative results should be treated as presumptive and, if inconsistent with clinical signs and symptoms or necessary for patient management, should be tested with an alternative molecular assay. Negative results do not preclude SARS-CoV-2 infection and should not be used as the sole basis for patient management decisions. Fact sheet for Healthcare Providers: https://www.fda.gov/media/632314/download Fact sheet for Patients: https://www.fda.gov/media/631516/download Methodology: Isothermal Nucleic Acid Amplification Performed By: #### C OVRB #### [facility] [address] [place] [address] [employer]: Zeinab Pink MD XR HIP 2-3 VW W PELVIS RIGHT on 06-13-2021 XR HIP 2-3 VW W PELVIS RIGHT EXAM: XR LUMBAR SPINE (MIN 4 VIEWS), XR HIP 2-3 VW W PELVIS RIGHT HISTORY: M25.551, low back pain, right hip pain. COMPARISON: Lumbar spine 05/14/2020, [place] [address] abdomen and pelvis 03/22/2021. TECHNIQUE: 5 views lumbar spine. AP pelvis and 2 views right hip. FINDINGS: LUMBAR SPINE: Slight convex left lumbar curve. Prior laminectomy and fusion L5-S1 with bone graft/disc spacer unchanged. Slight grade 1 anterolisthesis L4 on L5 is stable. Moderately advanced degenerative disc space narrowing at L2-L3 is not significantly changed. Mild degenerative changes otherwise diffusely are again seen. No fracture. PELVIS AND RIGHT HIP: Noncemented right total hip prosthesis in anatomic alignment without hardware complication. Moderate degenerative change left hip. IMPRESSION: No change in the lumbar spine fusion and degenerative changes. Anatomically aligned right total hip prosthesis. Interpreted by: Roverto Fletcher Jr., MD Signed by: Roverto Fletcher Jr., MD 06/13/21 Final result Normal [facility] No change in the lumbar spine fusion and degenerative changes. Anatomically aligned right total hip prosthesis. [facility] RIS CONSOLIDATED EXAM: XR LUMBAR SPINE (MIN 4 VIEWS), XR HIP 2-3 VW W PELVIS RIGHT HISTORY: M25.551, low back pain, right hip pain. COMPARISON: Lumbar spine 05/14/2020, [place] [facility] abdomen and pelvis 03/22/2021. TECHNIQUE: 5 views lumbar spine. AP pelvis and 2 views right hip. FINDINGS: LUMBAR SPINE: Slight convex left lumbar curve. Prior laminectomy and fusion L5-S1 with bone graft/disc spacer unchanged. Slight grade 1 anterolisthesis L4 on L5 is stable. Moderately advanced degenerative disc space narrowing at L2-L3 is not significantly changed. Mild degenerative changes otherwise diffusely are again seen. No fracture. PELVIS AND RIGHT HIP: Noncemented right total hip prosthesis in anatomic alignment without hardware complication. Moderate degenerative change left hip. [facility] Roverto Coronel Jr., MD - 06/13/2021 EXAM: XR LUMBAR SPINE (MIN 4 VIEWS), XR HIP 2-3 VW W PELVIS RIGHT HISTORY: M25.551, low back pain, right hip pain. COMPARISON: Lumbar spine 05/14/2020, [facility] abdomen and pelvis 03/22/2021. TECHNIQUE: 5 views lumbar spine. AP pelvis and 2 views right hip. FINDINGS: LUMBAR SPINE: Slight convex left lumbar curve. Prior laminectomy and fusion L5-S1 with bone graft/disc spacer unchanged. Slight grade 1 anterolisthesis L4 on L5 is stable. Moderately advanced degenerative disc space narrowing at L2-L3 is not significantly changed. Mild degenerative changes otherwise diffusely are again seen. No fracture. PELVIS AND RIGHT HIP: Noncemented right total hip prosthesis in anatomic alignment without hardware complication. Moderate degenerative change left hip. IMPRESSION: No change in the lumbar spine fusion and degenerative changes. Anatomically aligned right total hip prosthesis. [employer] Phone: Radiology Study observation (narrative) [employer] Work Phone: XR HIP 2-3 VW W PELVIS RIGHT Ordered By: Roverto Fletcher on 06-13-2021 [employer] Phone: XR LUMBAR SPINE (MIN 4 VIEWS )on 06-13-2021 XR LUMBAR SPINE (MIN 4 VIEWS) EXAM: XR LUMBAR SPINE (MIN 4 VIEWS), XR HIP 2-3 VW W PELVIS RIGHT HISTORY: M25.551, low back pain, right hip pain. COMPARISON: Lumbar spine 05/14/2020, [place] [address] abdomen and pelvis 03/22/2021. TECHNIQUE: 5 views lumbar spine. AP pelvis and 2 views right hip. FINDINGS: LUMBAR SPINE: Slight convex left lumbar curve. Prior laminectomy and fusion L5-S1 with bone graft/disc spacer unchanged. Slight grade 1 anterolisthesis L4 on L5 is stable. Moderately advanced degenerative disc space narrowing at L2-L3 is not significantly changed. Mild degenerative changes otherwise diffusely are again seen. No fracture. PELVIS AND RIGHT HIP: Noncemented right total hip prosthesis in anatomic alignment without hardware complication. Moderate degenerative change left hip. IMPRESSION: No change in the lumbar spine fusion and degenerative changes. Anatomically aligned right total hip prosthesis. Interpreted by: Roverto Fletcher Jr., MD Signed by: Roverto Fletcher Jr., MD 06/13/21 Final result Normal [facility] Epidural Injectionon 021 Edy Villalpando MD 08/15/2020 11:13 AM Epidural Injection Performed by: Edy Villalpando MD Authorized by: Edy Villalpando MD Medications: 120 mg triamcinolone acetonide 40 mg/mL Anesthetic used: Lidocaine 1% [facility] XR LUMBAR SPINE STANDARD WIT H FLEX/EXT 4+ VIEWSon 05-14-2020 XR LUMBAR SPINE STANDARD WITH FLEX/EXT 4+ VIEWS EXAMINATION: XR LUMBAR SPINE STANDARD WITH FLEX/EXT 4+ VIEWS 05/14/2020 11:01 am HISTORY: ORDERING SYSTEM PROVIDED HISTORY: pain, TECHNOLOGIST PROVIDED HISTORY: Illness/Other Reason for exam: chronic lower back pain x 2 years Cancer History: UN Surgery, RadiationHistory: UN Encounter Type: Initial Additional signs and symptoms: no known injury ORDERING SYSTEM PROVIDED DIAGNOSIS CODES: R52 Pain COMPARISON: 02/07/2020 FINDINGS: BONES: Stable posterior decompression bilateral transpedicular fusion L5-S1. Neutral projection demonstrates 4.5 mm anterolisthesis of L4 in relation L5, this is stable with flexion and reduces to 2 mm with extension. [id number] degenerative spondylosis and facet osteoarthropathy. DISC SPACES: Multilevel disc space narrowing. Near disc collapse with endplate sclerosis L2-L3. Intervertebral spacer L5-S1 PARASPINOUS:No paraspinous abnormality is seen. OTHER: Negative. IMPRESSION: Moderate degenerative changes 4.5 mm anterolisthesis L4 in relation L5 with mild dynamic instability identified during extension Workstation ID: [id number] Dictated by: ZEINAB SPRING on ThuMay 14, 2020 3:28:29 PM EST Transcribed by: ZEINAB SPRING on ThuMay 14, 2020 3:28:29 PM EST Finalized by: ZEINAB SPRING on ThuMay 14, 2020 3:28:29 PM EST Normal [facility] Comment on above: Order Comment: Injur y/Trauma or Illness?:Illness/Other How long have you had these symptoms (acute/chronic)?:Chronic Reason for exam?:chronic lower back pain x 2 years History of cancer?:UN Surgeries, chemotherapy, or radiation?:UN Type of Exam?:Initial Additional signs and symptoms?:no known injury XR Lumbar Spine Standard wit h Flex/Ext 4+ Viewson 05-14-2020 INR Coag (Bld) [Relative time] Moderate degenerative changes 4.5 mm anterolisthesis L4 in relation L5 with mild dynamic instability identified during extension Workstation ID: [id number] [facility] EXAMINATION: XR LUMBAR SPINE STANDARD WITH FLEX/EXT 4+ VIEWS 05/14/2020 11:01 am HISTORY: ORDERING SYSTEM PROVIDED HISTORY: pain, TECHNOLOGIST PROVIDED HISTORY: Illness/Other Reason for exam: chronic lower back pain x 2 years Cancer History: UN Surgery, RadiationHistory: UN Encounter Type: Initial Additional signs and symptoms: no known injury ORDERING SYSTEM PROVIDED DIAGNOSIS CODES: R52 Pain COMPARISON: 02/07/2020 FINDINGS: BONES: Stable posterior decompression bilateral transpedicular fusion L5-S1. Neutral projection demonstrates 4.5 mm anterolisthesis of L4 in relation L5, this is stable with flexion and reduces to 2 mm with extension. [id number] degenerative spondylosis and facet osteoarthropathy. DISC SPACES: Multilevel disc space narrowing. Near disc collapse with endplate sclerosis L2-L3. Intervertebral spacer L5-S1 PARASPINOUS:No paraspinous abnormality is seen. OTHER: Negative. [facility] Interface, Rad In [employer] - 05/14/2020 3:31 PM EST EXAMINATION: XR LUMBAR SPINE STANDARD WITH FLEX/EXT 4+ VIEWS 05/14/2020 11:01 am HISTORY: ORDERING SYSTEM PROVIDED HISTORY: pain, TECHNOLOGIST PROVIDED HISTORY: Illness/Other Reason for exam: chronic lower back pain x 2 years Cancer History: UN Surgery, RadiationHistory: UN Encounter Type: Initial Additional signs and symptoms: no known injury ORDERING SYSTEM PROVIDED DIAGNOSIS CODES: R52 Pain COMPARISON: 02/07/2020 FINDINGS: BONES: Stable posterior decompression bilateral transpedicular fusion L5-S1. Neutral projection demonstrates 4.5 mm anterolisthesis of L4 in relation L5, this is stable with flexion and reduces to 2 mm with extension. [id number] degenerative spondylosis and facet osteoarthropathy. DISC SPACES: Multilevel disc space narrowing. Near disc collapse with endplate sclerosis L2-L3. Intervertebral spacer L5-S1 PARASPINOUS:No paraspinous abnormality is seen. OTHER: Negative. IMPRESSION: Moderate degenerative changes 4.5 mm anterolisthesis L4 in relation L5 with mild dynamic instability identified during extension Workstation ID: [id number] [facility] MR LUMBAR SPINE WITHOUT CONT RASTon 05-08-2020 1. Postsurgical changes from L4-L5 fusion. 2. Focal L3-L4 left paracentral/foramina l disc herniation with compression of the traversing and exiting nerve roots. 3. Moderate to severe degenerative disease throughout the lumbar spine as described above. Workstation ID: [id number] [facility] EXAMINATION: MRI lumbar spine without contrast HISTORY: Dx: M43.16 (Spondylolisthesis of lumbar region) Injury/Trauma or Illness?:Illness/Oth er How long have you had these symptoms (acute/chronic)?:Chr onic Back pain or radiculopathy, > 6 wks COMPARISON: Plain radiograph 02/07/2020 TECHNIQUE: Multiplanar, multisequence MRI of the lumbar spine is submitted for review without the use of gadolinium. FINDINGS: The conus medullaris is of normal caliber and signal intensity. There are 5 iia-pzq-ehfgaej lumbar vertebrae. There is normal lumbar lordosis with minimal anterolisthesis of L4-L5, which is unchanged from prior studies. The vertebral body heights are maintained. Scattered Modic type changes are present, most notably at the L2-L3 level. The bone marrow signal is otherwise normal. There are postsurgical changes from L5-S1 posterior fusion and laminectomy with paired bilateral pedicle screws and intervertebral disc spacer. The left pedicle screw extends into the intervertebral disc space. The visualized bony pelvis is intact. Limited evaluation of the abdominopelvic viscera is unremarkable. No paraspinal mass is identified. AXIAL IMAGES: L1-L2: There is mild diffuse broad-based disc bulge with mild spinal canal stenosis. Moderate bilateral foraminal stenosis secondary to disc osteophyte complex and facet arthropathy. L2-L3: There is diffuse broad-based disc bulge. Mild spinal canal stenosis. Moderate bilateral neural foraminal stenosis secondary to disc osteophyte complex and facet arthropathy. L3-L4: There is diffuse broad-based disc bulge with more focal left paracentral disc extrusion (series 5, image 7; series 10, image 3). This compresses the traversing and exiting nerve roots. There is moderate spinal canal stenosis. Moderate to severe bilateral neural foraminal stenosis, left greater than right secondary to disc osteophyte complex and facet arthropathy. L4-L5: There is diffuse broad-based disc bulge with flattening the ventral thecal sac. Mild spinal canal stenosis. Severe bilateral neural foraminal stenosis. L5-S1: There is mild spinal canal stenosis secondary to posterior disc osteophyte complex. Severe bilateral neural foraminal stenosis secondary to osteophytes and facet arthropathy. [facility] Interface, Rad In [place] Speechq - 05/08/2020 11:02 AM EST EXAMINATION: MRI lumbar spine without contrast HISTORY: Dx: M43.16 (Spondylolisthesis of lumbar region) Injury/Trauma or Illness?:Illness/Oth er How long have you had these symptoms (acute/chronic)?:Chr onic Back pain or radiculopathy, > 6 wks COMPARISON: Plain radiograph 02/07/2020 TECHNIQUE: Multiplanar, multisequence MRI of the lumbar spine is submitted for review without the use of gadolinium. FINDINGS: The conus medullaris is of normal caliber and signal intensity. There are 5 bou-hma-sdvxpym lumbar vertebrae. There is normal lumbar lordosis with minimal anterolisthesis of L4-L5, which is unchanged from prior studies. The vertebral body heights are maintained. Scattered Modic type changes are present, most notably at the L2-L3 level. The bone marrow signal is otherwise normal. There are postsurgical changes from L5-S1 posterior fusion and laminectomy with paired bilateral pedicle screws and intervertebral disc spacer. The left pedicle screw extends into the intervertebral disc space. The visualized bony pelvis is intact. Limited evaluation of the abdominopelvic viscera is unremarkable. No paraspinal mass is identified. AXIAL IMAGES: L1-L2: There is mild diffuse broad-based disc bulge with mild spinal canal stenosis. Moderate bilateral foraminal stenosis secondary to disc osteophyte complex and facet arthropathy. L2-L3: There is diffuse broad-based disc bulge. Mild spinal canal stenosis. Moderate bilateral neural foraminal stenosis secondary to disc osteophyte complex and facet arthropathy. L3-L4: There is diffuse broad-based disc bulge with more focal left paracentral disc extrusion (series 5, image 7; series 10, image 3). This compresses the traversing and exiting nerve roots. There is moderate spinal canal stenosis. Moderate to severe bilateral neural foraminal stenosis, left greater than right secondary to disc osteophyte complex and facet arthropathy. L4-L5: There is diffuse broad-based disc bulge with flattening the ventral thecal sac. Mild spinal canal stenosis. Severe bilateral neural foraminal stenosis. L5-S1: There is mild spinal canal stenosis secondary to posterior disc osteophyte complex. Severe bilateral neural foraminal stenosis secondary to osteophytes and facet arthropathy. IMPRESSION: 1. Postsurgical changes from L4-L5 fusion. 2. Focal L3-L4 left paracentral/foramina l disc herniation with compression of the traversing and exiting nerve roots. 3. Moderate to severe degenerative disease throughout the lumbar spine as described above. Workstation ID: [id number] [facility] MR LUMBAR SPINE WITHOUT CONTRAST EXAMINATION: MRI lumbar spine without contrast HISTORY: Dx: M43.16 (Spondylolisthesis of lumbar region) Injury/Trauma or Illness?:Illness/Oth er How long have you had these symptoms (acute/chronic)?:Chr onic Back pain or radiculopathy, > 6 wks COMPARISON: Plain radiograph 02/07/2020 TECHNIQUE: Multiplanar, multisequence MRI of the lumbar spine is submitted for review without the use of gadolinium. FINDINGS: The conus medullaris is of normal caliber and signal intensity. There are 5 apo-dgw-dgudxya lumbar vertebrae. There is normal lumbar lordosis with minimal anterolisthesis of L4-L5, which is unchanged from prior studies. The vertebral body heights are maintained. Scattered Modic type changes are present, most notably at the L2-L3 level. The bone marrow signal is otherwise normal. There are postsurgical changes from L5-S1 posterior fusion and laminectomy with paired bilateral pedicle screws and intervertebral disc spacer. The left pedicle screw extends into the intervertebral disc space. The visualized bony pelvis is intact. Limited evaluation of the abdominopelvic viscera is unremarkable. No paraspinal mass is identified. AXIAL IMAGES: L1-L2: There is mild diffuse broad-based disc bulge with mild spinal canal stenosis. Moderate bilateral foraminal stenosis secondary to disc osteophyte complex and facet arthropathy. L2-L3: There is diffuse broad-based disc bulge. Mild spinal canal stenosis. Moderate bilateral neural foraminal stenosis secondary to disc osteophyte complex and facet arthropathy. L3-L4: There is diffuse broad-based disc bulge with more focal left paracentral disc extrusion (series 5, image 7; series 10, image 3). This compresses the traversing and exiting nerve roots. There is moderate spinal canal stenosis. Moderate to severe bilateral neural foraminal stenosis, left greater than right secondary to disc osteophyte complex and facet arthropathy. L4-L5: There is diffuse broad-based disc bulge with flattening the ventral thecal sac. Mild spinal canal stenosis. Severe bilateral neural foraminal stenosis. L5-S1: There is mild spinal canal stenosis secondary to posterior disc osteophyte complex. Severe bilateral neural foraminal stenosis secondary to osteophytes and facet arthropathy. IMPRESSION: 1. Postsurgical changes from L4-L5 fusion. 2. Focal L3-L4 left paracentral/foramina l disc herniation with compression of the traversing and exiting nerve roots. 3. Moderate to severe degenerative disease throughout the lumbar spine as described above. Workstation ID: [id number] Dictated by: EDMOND MORALES on ThuMay 08, 2020 10:59:18 AM EST Transcribed by: EDMOND MORALES on ThuMay 08, 2020 10:59:18 AM EST Finalized by: EDMOND MORALES on ThuMay 08, 2020 10:59:18 AM EST Normal [facility] Comment on above: Order Comment: Injur y/Trauma or Illness?:Illness/Other How long have you had these symptoms (acute/chronic)?:Chronic Reason for exam?:lbp Type of Exam?:Subsequent/Follow-up Additional signs and symptoms?:hx of lumbar surgery 06/2001 XR LUMBAR SPINE 2-3 VIEWS (S TANDARD)on 02-07-2020 XR LUMBAR SPINE 2-3 VIEWS (STANDARD) EXAMINATION: XR LUMBAR SPINE 2-3 VIEWS (STANDARD) 02/07/2020 3:35 PM HISTORY: ORDERING SYSTEM PROVIDED HISTORY: pain, TECHNOLOGIST PROVIDED HISTORY: Illness/Other Reason for exam: LOW BACK PAIN, B/L RADICULOPATHY, NO RECENT INJRY Cancer History: UN Surgery, RadiationHistory: UN Encounter Type: Initial Additional signs and symptoms: UN ORDERING SYSTEM PROVIDED DIAGNOSIS CODES: R52 Pain COMPARISON: Lumbar spine radiographs from 10/31/2019. FINDINGS: Three views are performed demonstrating postoperative changes of posterior fixation at L5-S1 with surgical construct intact. No acute fracture is identified. There is grade 1 anterolisthesis of L4 on L5 measuring approximately 0.5 cm which is a stable finding. Vertebral body heights are maintained. There is lgyblrhs-eo-zzszqg degenerative disc disease at L2-L3 as well as L1-L2 which remains stable. There is mild degenerative disc disease at the L3-L4 and L4-L5. No destructive osseous lesion. Imaged portion of the right hip arthroplasty are in near anatomic alignment. Degenerative changes of the left hip are noted. IMPRESSION: Postoperative changes of posterior fixation at L5-S1, intact. No acute fracture. Stable grade 1 anterolisthesis of L4 on L5. Multilevel degenerative changes as detailed in the body of the report, grossly stable from 10/31/2019. [employer]/lab Workstation ID: [id number] Dictated by: RAEANN ARGUETA on ThuFeb 07, 2020 6:37:11 PM EDT Transcribed by: CB STEWART on ThuFeb 07, 2020 7:00:51 PM EDT Finalized by: RAEANN ARGUETA on ThuFeb 07, 2020 8:25:54 PM EDT [facility] Comment on above: Order Comment: Injur y/Trauma or Illness?:Illness/Other How long have you had these symptoms (acute/chronic)?:Chronic Reason for exam?:LOW BACK PAIN, B/L RADICULOPATHY, NO RECENT INJRY History of cancer?:UN Surgeries, chemotherapy, or radiation?:UN Type of Exam?:Initial Additional signs and symptoms?:UN XR Lumbar Spine 2-3 Views (S tandard)on 02-07-2020 Postoperative changes of posterior fixation at L5-S1, intact. No acute fracture. Stable grade 1 anterolisthesis of L4 on L5. Multilevel degenerative changes as detailed in the body of the report, grossly stable from 10/31/2019. [employer]/lab Workstation ID: [id number] [facility] EXAMINATION: XR LUMBAR SPINE 2-3 VIEWS (STANDARD) 02/07/2020 3:35 PM HISTORY: ORDERING SYSTEM PROVIDED HISTORY: pain, TECHNOLOGIST PROVIDED HISTORY: Illness/Other Reason for exam: LOW BACK PAIN, B/L RADICULOPATHY, NO RECENT INJRY Cancer History: UN Surgery, RadiationHistory: UN Encounter Type: Initial Additional signs and symptoms: UN ORDERING SYSTEM PROVIDED DIAGNOSIS CODES: R52 Pain COMPARISON: Lumbar spine radiographs from 10/31/2019. FINDINGS: Three views are performed demonstrating postoperative changes of posterior fixation at L5-S1 with surgical construct intact. No acute fracture is identified. There is grade 1 anterolisthesis of L4 on L5 measuring approximately 0.5 cm which is a stable finding. Vertebral body heights are maintained. There is sozccwcd-ql-cpnvhc degenerative disc disease at L2-L3 as well as L1-L2 which remains stable. There is mild degenerative disc disease at the L3-L4 and L4-L5. No destructive osseous lesion. Imaged portion of the right hip arthroplasty are in near anatomic alignment. Degenerative changes of the left hip are noted. [facility] Interface, Rad In [employer] - 02/07/2020 8:28 PM EDT EXAMINATION: XR LUMBAR SPINE 2-3 VIEWS (STANDARD) 02/07/2020 3:35 PM HISTORY: ORDERING SYSTEM PROVIDED HISTORY: pain, TECHNOLOGIST PROVIDED HISTORY: Illness/Other Reason for exam: LOW BACK PAIN, B/L RADICULOPATHY, NO RECENT INJRY Cancer History: UN Surgery, RadiationHistory: UN Encounter Type: Initial Additional signs and symptoms: UN ORDERING SYSTEM PROVIDED DIAGNOSIS CODES: R52 Pain COMPARISON: Lumbar spine radiographs from 10/31/2019. FINDINGS: Three views are performed demonstrating postoperative changes of posterior fixation at L5-S1 with surgical construct intact. No acute fracture is identified. There is grade 1 anterolisthesis of L4 on L5 measuring approximately 0.5 cm which is a stable finding. Vertebral body heights are maintained. There is cqavfvhr-wc-swdwci degenerative disc disease at L2-L3 as well as L1-L2 which remains stable. There is mild degenerative disc disease at the L3-L4 and L4-L5. No destructive osseous lesion. Imaged portion of the right hip arthroplasty are in near anatomic alignment. Degenerative changes of the left hip are noted. IMPRESSION: Postoperative changes of posterior fixation at L5-S1, intact. No acute fracture. Stable grade 1 anterolisthesis of L4 on L5. Multilevel degenerative changes as detailed in the body of the report, grossly stable from 10/31/2019. [employer]/lab Workstation ID: [id number] [facility] Reportson 12-08-2019 Lab Reports [id number] Normal [facility] Vital Signs Date Time Vital Sign Value Performing Clinician Facility 10-20-2023 12:26-0400 Body height 182.9 cm Sabina Red DO Work Phone: [place] [address]-23-2024 12:26-0400 Body mass index (BMI) [Ratio] 27.53 kg/m2 Sabina Sawantey DO Work Phone: [facility] 10-20-2023 12:26-0400 Body temperature 98.29 [degF] Sabina Sawantey DO Work Phone: [facility] 10-20-2023 12:26-0400 Body weight 92.08 kg Sabina Sawantey DO Work Phone: [facility] 10-20-2023 12:26-0400 Diastolic blood pressure 75 mm[Hg] Sabina Sawantey DO Work Phone: [facility] 10-20-2023 12:26-0400 Heart rate 60 /min Sabina Sawantey DO Work Phone: [facility] 10-20-2023 12:26-0400 Respiratory rate 17 /min Sabina Red DO Work Phone: [facility] 10-20-2023 12:26-0400 SaO2% (BldA) [Mass fraction] 95 % Sabina Red DO Work Phone: [facility] 10-20-2023 12:26-0400 Systolic blood pressure 118 mm[Hg] Sabina Rde DO Work Phone: [facility] 07-21-2023 15:15-0500 Body height 182.88 cm Mundo Dang Other [employer] Other 07-21-2023 15:15-0500 Body mass index (BMI) [Ratio] 28.21 kg/m2 Mundo Dang Other [employer] Other 07-21-2023 15:15-0500 Body weight 94.35 kg Mundo Dang Other [employer] Other 05-06-2023 14:03-0500 Diastolic blood pressure 75 mm[Hg] PHYSICIAN NO [facility] 05-06-2023 14:03-0500 Heart rate 71 /min PHYSICIAN NO [facility] 05-06-2023 14:03-0500 Respiratory rate 18 /min PHYSICIAN NO [facility] 05-06-2023 14:03-0500 SaO2% (BldA) [Mass fraction] 95 % PHYSICIAN NO [facility] 05-06-2023 14:03-0500 Systolic blood pressure 117 mm[Hg] PHYSICIAN NO [facility] 05-06-2023 12:13-0500 Body height 182.88 cm PHYSICIAN NO [facility] 05-06-2023 12:13-0500 Body temperature 97.6 [degF] PHYSICIAN NO [facility] 05-06-2023 12:13-0500 Body weight 94.34 kg PHYSICIAN NO [facility] 05-21-2022 10:45-0500 Body height 182.88 cm Mundo Dang Other [facility] [employer] Other 05-21-2022 10:45-0500 Body mass index (BMI) [Ratio] 28.21 kg/m2 Mundo Dang Other [employer] Other 05-21-2022 10:45-0500 Body weight 94.35 kg Mundo Dang Other [employer] Other 05-21-2022 10:45-0500 Diastolic blood pressure 80 mm[Hg] Mundo Dang Other [employer] Other 05-21-2022 10:45-0500 Systolic blood pressure 119 mm[Hg] Mundo Dang Other [employer] Other 12-04-2021 14:45-0400 Body height 182.88 cm Mundo Dang Other [employer] Other 12-04-2021 14:45-0400 Body mass index (BMI) [Ratio] 29.02 kg/m2 Mundo Dang Other [employer] Other 12-04-2021 14:45-0400 Body weight 97.07 kg Mundo Dang Other [employer] Other 11-27-2020 11:07-0400 Body height 182.9 cm dEy Villalpando MD Work Phone: [facility] 11-27-2020 11:07-0400 Body mass index (BMI) [Ratio] 29.84 kg/m2 Edy Villalpando MD Work Phone: [facility] 11-27-2020 11:07-0400 Body weight 99.79 kg Edy Villalpando MD Work Phone: [facility] 11-27-2020 11:07-0400 Diastolic blood pressure 66 mm[Hg] Edy Villalpando MD Work Phone: [facility] 11-27-2020 11:07-0400 Heart rate 85 /min Edy Villalpando MD Work Phone: [facility] 11-27-2020 11:07-0400 Systolic blood pressure 151 mm[Hg] Edy Villalpando MD Work Phone: [facility] 08-15-2020 10:58-0500 BMI (Body Mass Index) 29.84 kg/m2 Edy Villalpando [facility] 08-15-2020 10:58-0500 Body weight 99.79 kg Edy Villalpando [facility] 08-15-2020 10:58-0500 Height 182.9 cm Edy Villalpando [facility] 05-14-2020 10:39-0500 BMI (Body Mass Index) 29.84 kg/m2 Edy Villalpando [facility] 05-14-2020 10:39-0500 Body weight 99.79 kg Edy Villalpando [facility] 05-14-2020 10:39-0500 BP Diastolic 74 mm[Hg] Edy Villalpando [facility] 05-14-2020 10:39-0500 BP Systolic 122 mm[Hg] Edy Villalpando [facility] 05-14-2020 10:39-0500 Height 182.9 cm Edy Villalpando [facility] 05-14-2020 10:39-0500 Pulse (Heart Rate) 66 /min Edy Villalpando [facility] 02-07-2020 14:49-0400 BMI (Body Mass Index) 29.02 kg/m2 Edy [facility] 02-07-2020 14:49-0400 Body weight 97.07 kg Edy [facility] 02-07-2020 14:49-0400 Height 182.9 cm Edy [facility] Encounters Encounter Date Encounter Type Care Provider Facility Start: 12-01-2023 End: 12-01-2023 Patient encounter procedure Nanci Carvajal MD Work Phone: Urology Comment on above: Encounter for follow -up surveillance of bladder cancer (Primary Dx); History of bladder cancer Start: 12-01-2023 ambulatory NANCI CARVAJAL Facility :[facility] Start: 10-29-2023 End: 10-29-2023 ambulatory Zhou Fischer Facility:[facility] Start: 10-29-2023 End: 10-29-2023 ambulatory CAB[employer]ET PROFESSION[employer] Danette Muniz Work Phone: [facility] Work Phone: Start: 10-29-2023 End: 10-29-2023 Patient encounter procedure CABINET PROFESSIONAL-C Danette Muniz Work Phone: [facility] [address] Work Phone: Start: 10-20-2023 End: 10-20-2023 ambulatory ISAURO POE [facility] Amb[facility] Start: 10-20-2023 End: 10-20-2023 Encounter for other preprocedural examination SABINA RED [facility] Ambulatory Start: 10-20-2023 End: 10-20-2023 Office outpatient new 30 minutes Aubrie Red DO Work Phone: [facility] Comment on above: Pre-operative examin ation (Primary Dx); Traction detachment of right retina; Rheumatoid arthritis, involving unspecified site, unspecified whether rheumatoid factor present (HCC); Essential (primary) hypertension; Gastroesophageal reflux disease, unspecified whether esophagitis present; JOHNATHON (obstructive sleep apnea) Start: 10-20-2023 End: 10-20-2023 Preprocedural examination done Sabina Red DO Work Phone: [facility] Work Phone: Start: 09-24-2023 End: 09-24-2023 ambulatory AILYN PAITNO Not Available Start: 09-08-2023 End: 09-08-2023 ambulatory AILYN PATINO Not Available Start: 07-21-2023 End: 07-21-2023 ambulatory Danette Muniz Facility:[facility] Start: 07-21-2023 End: 07-21-2023 Patient encounter procedure CABINET PROFESSIONAL-C Danette Muniz Work Phone: [facility] [address] Work Phone: Start: 07-21-2023 End: 07-21-2023 ambulatory CABINET PROFESSIONAL-C Danette Muniz Work Phone: [facility] Work Phone: Start: 07-21-2023 Office outpatient vi sit 15 minutes Mundo MADRIGAL [facility] Start: 06-02-2023 End: 06-02-2023 Patient encounter procedure Nanci Carvajal MD Work Phone: Urology Comment on above: Encounter for follow -up surveillance of bladder cancer (Primary Dx); History of bladder cancer Start: 06-02-2023 End: 06-02-2023 ambulatory NANCI CARVAJAL Facility:[facility] Start: 06-02-2023 End: 06-02-2023 Subsequent hospital visit by physician Ct [address] Qb (I-Stat) Radiology Comment on above: Malignant neoplasm o f urinary bladder, unspecified site (HCC) [C67.9] Start: 05-25-2023 End: 05-25-2023 ambulatory Danette Muniz Facility:[facility] Start: 05-25-2023 End: 05-25-2023 ambulatory CABINET PROFESSIONAL-C Danette Muniz Work Phone: [facility] Work Phone: Start: 05-25-2023 End: 05-25-2023 Patient encounter procedure CABINET PROFESSIONAL-C aDnette Muniz Work Phone: [facility] [address] Work Phone: Start: 05-06-2023 End: 05-06-2023 ambulatory Mundo Dang Facility:[facility] Start: 05-06-2023 End: 05-06-2023 Admission to same day surgery center PHYSICIAN NO [facility] Work Phone: Start: 05-06-2023 End: 05-06-2023 ambulatory PHYSICIAN NO [facility] Work Phone: Start: 04-17-2023 End: 04-17-2023 ambulatory Mundo Dang Other [employer] Other Start: 04-17-2023 Telephone encounter Mundo Vazquez ck [facility] Gastroenterology Start: 03-17-2023 End: 03-17-2023 ambulatory Danette Muniz Facility:[facility] Start: 03-17-2023 End: 03-17-2023 ambulatory PHYSICIAN NO [facility] Work Phone: Start: 03-17-2023 End: 03-17-2023 Patient encounter procedure PHYSICIAN NO [facility] [address] Work Phone: Start: 02-24-2023 End: 02-24-2023 ambulatory Zhou Fischer Facility:[facility] Start: 02-24-2023 End: 02-24-2023 ambulatory PHYSICIAN NO [facility] Work Phone: Start: 02-24-2023 End: 02-24-2023 Patient encounter procedure PHYSICIAN NO [facility] [address] Work Phone: Start: 01-26-2023 End: 01-26-2023 ambulatory Zhou Haladay Facility:[facility] Start: 01-26-2023 End: 01-26-2023 ambulatory PHYSICIAN NO [facility] Work Phone: Start: 01-26-2023 End: 01-26-2023 Patient encounter procedure PHYSICIAN NO [facility] [address] Work Phone: Start: 01-20-2023 End: 01-20-2023 ambulatory NANCI CARVAJAL Facility:[facility] Start: 01-12-2023 End: 01-12-2023 ambulatory Zhou Meyerwilliamsmaral Facility:[facility] Start: 01-12-2023 End: 01-12-2023 ambulatory PHYSICIAN NO [facility] Work Phone: Start: 01-12-2023 End: 01-12-2023 Patient encounter procedure PHYSICIAN NO [facility] [address] Work Phone: Start: 12-23-2022 End: 12-23-2022 [facility] Start: 12-23-2022 End: 12-23-2022 Patient encounter procedure PHYSICIAN NO [facility] [address] Work Phone: Start: 12-16-2022 End: 12-16-2022 ambulatory [facility] Facility:[facility] Start: 12-16-2022 End: 12-16-2022 ambulatory PHYSICIAN NO [facility] Work Phone: Start: 12-16-2022 End: 12-16-2022 Patient encounter procedure PHYSICIAN NO [facility] [address] Work Phone: Start: 11-22-2022 End: 11-23-2022 ambulatory DANETTE MUNIZ Facility:[facility] Start: 11-17-2022 End: 11-18-2022 ambulatory DANETTE MUNIZ Facility:[facility] Start: 10-21-2022 End: 10-21-2022 Patient encounter procedure Nanci Carvajal MD Work Phone: Urology Comment on above: Encounter for follow -up surveillance of bladder cancer (Primary Dx); History of bladder cancer Start: 07-16-2022 Telephone encounter Nanci desir MD Work Phone: Urology Comment on above: Results Start: 07-08-2022 End: 07-08-2022 Patient encounter procedure Nanci Carvajal MD Work Phone: Urology Comment on above: Encounter for follow -up surveillance of bladder cancer (Primary Dx) Start: 07-01-2022 End: 07-01-2022 ambulatory MD Zhou Fischer Work Phone: [facility] Work Phone: Start: 07-01-2022 End: 07-01-2022 Patient encounter procedure MD Zhou Fischer Work Phone: [facility] [address] Work Phone: Start: 06-30-2022 End: 06-30-2022 ambulatory DANETTE MUNIZ Facility:[facility] Start: 05-21-2022 End: 05-21-2022 ambulatory Mundo Dang Other [employer] Other Start: 05-21-2022 Office outpatient vi sit 15 minutes Mundo Dang [facility] Gastroenterology Start: 05-15-2022 End: 05-16-2022 [facility] Start: 05-15-2022 End: 05-15-2022 Subsequent hospital visit by physician [facility] ([facility]) Work Phone: [facility] Radiology CT Scan Comment on above: Malignant neoplasm o f urinary bladder, unspecified site (HCC) [C67.9] Start: 05-02-2022 Telephone encounter Nanci desir MD Work Phone: Urology Comment on above: Manager Agency - [employer] Start: 04-21-2022 Telephone encounter Hallie [facility] & Comment on above: Returning Patient's Call Start: 04-02-2022 End: 04-03-2022 ambulatory DANETTE MUNIZ Facility:[facility] Start: 04-01-2022 End: 04-01-2022 Patient encounter procedure Nanci Carvajal MD Work Phone: Urology Comment on above: History of bladder c ancer (Primary Dx); Malignant neoplasm of urinary bladder, unspecified site (HCC) Start: 12-04-2021 End: 12-04-2021 ambulatory Mundo Dang Other [employer] Other Start: 12-04-2021 Office outpatient ne w 45 minutes Mundo Dang [facility] Gastroenterology Start: 11-11-2021 End: 11-12-2021 ambulatory [facility] HOOPER [facility] [facility] Start: 11-11-2021 End: 11-11-2021 Subsequent hospital visit by physician [facility] Covid19 Pat Screening Schedule MW PRE ADMIT Comment on above: Viral upper respirat ory tract infection with cough Start: 11-05-2021 Telephone encounter Bing Schmitt RN Urology Comment on above: Appointment Cancelle d Start: 10-24-2021 End: 10-24-2021 Patient encounter procedure Nurse Urol Work Phone: Urology Comment on above: Malignant neoplasm o f urinary bladder, unspecified site (HCC) (Primary Dx) Start: 09-20-2021 Orders Only Nanci Carvajal MD Work Phone: Urology Comment on above: Manager Agency - [employer] Start: 06-13-2021 End: 06-16-2021 ambulatory ZEINAB NEIDA AMANDAPAGE [facility] Start: 06-13-2021 End: 06-15-2021 Subsequent hospital visit by physician [facility] Chad Fluoro [facility] Radiology Comment on above: Right hip pain Start: 06-13-2021 End: 06-16-2021 ambulatory ZEINAB GARYSTEFFANY [facility] Start: 11-27-2020 End: 11-27-2020 Office outpatient visit 15 minutes Edy Villalpando MD Work Phone: [facility] Comment on above: Spinal stenosis of l umbar region without neurogenic claudication (Primary Dx); Lumbar degenerative disc disease Start: 11-09-2020 End: 11-09-2020 Documentation procedure Darlene Yumiko JANITOR CUSTODIAN [facility] Start: 08-15-2020 End: 08-15-2020 Clinical Support Edy Villalpando Work Phone: [facility] Comment on above: Spondylolisthesis of lumbar region (Primary Dx); Spinal stenosis of lumbar region without neurogenic claudication; Lumbar degenerative disc disease Start: 08-06-2020 End: 08-06-2020 Orders Only Martha Sherri Casey Work Phone: [facility] Start: 05-15-2020 End: 05-15-2020 Clinical Support Edy Villalpando Work Phone: [facility] Comment on above: Spondylolisthesis of lumbar region (Primary Dx); Lumbar degenerative disc disease Start: 05-14-2020 End: 05-14-2020 Documentation procedure Darlene Calderon [facility] Start: 05-14-2020 End: 05-15-2020 Patient encounter procedure EDY VILLALPANDO [facility] Start: 05-14-2020 End: 05-14-2020 Subsequent hospital visit by physician Edy Villalpando Work Phone: [facility] Comment on above: Pain Start: 05-14-2020 End: 05-14-2020 Office outpatient visit 15 minutes Edy Villalpando Work Phone: [facility] Comment on above: Spondylolisthesis of lumbar region (Primary Dx); Lumbar degenerative disc disease Start: 05-08-2020 End: 05-09-2020 Patient encounter procedure EDY VILLALPANDO [facility] Start: 05-08-2020 End: 05-08-2020 Subsequent hospital visit by physician Edy Villalpando Work Phone: [facility] Comment on above: Spondylolisthesis of lumbar region; Back pain, unspecified back location, unspecified back pain laterality, unspecified chronicity Start: 03-16-2020 End: 03-16-2020 Subsequent hospital visit by physician Liss Rico Work Phone: [facility] Start: 03-14-2020 End: 03-14-2020 Subsequent hospital visit by physician Cb MORIN Physical Therapy Comment on above: Arrived Start: 03-09-2020 End: 03-09-2020 Subsequent hospital visit by physician Cb THORNTON Physical Therapy Comment on above: Arrived Start: 03-07-2020 End: 03-07-2020 Subsequent hospital visit by physician Linda MORIN Physical Therapy Comment on above: Arrived Start: 03-02-2020 End: 03-02-2020 Subsequent hospital visit by physician Linda Gardner [facility] Physical Therapy Comment on above: Arrived Start: 02-28-2020 End: 02-28-2020 Subsequent hospital visit by physician Linda Gardner [facility] Physical Therapy Comment on above: Arrived Start: 02-23-2020 End: 02-23-2020 Subsequent hospital visit by physician Linda Gardner [facility] Physical Therapy Comment on above: Arrived Start: 02-21-2020 End: 02-21-2020 Subsequent hospital visit by physician Linda Gardner [facility] Physical Therapy Comment on above: Arrived Start: 02-15-2020 End: 02-15-2020 Subsequent hospital visit by physician Cb Cunningham [facility] Physical Therapy Comment on above: Arrived Start: 02-07-2020 End: 02-08-2020 Patient encounter [facility] Start: 02-07-2020 End: 02-07-2020 Subsequent hospital visit by physician Edy Villalpando Work Phone: [facility] Comment on above: Pain Start: 02-07-2020 End: 02-07-2020 Office outpatient new 30 minutes Isauro Poe Work Phone: [facility] Comment on above: Spondylolisthesis of lumbar region (Primary Dx); Back pain, unspecified back location, unspecified back pain laterality, unspecified chronicity Procedures Date Procedure Procedure Detail Performing Clinician Start: 12-01-2023 Urnls dip stick/tablet rgnt auto w/o microscopy Nanci Carvajal MD Work Phone: Start: 10-20-2023 Ecg routine ecg w/least 12 lds w/i&r Sabina Red DO Work Phone: Start: 06-02-2023 Ct abdomen & pelvis w/o contrst 1/> body re Nanci Carvajal MD Work Phone: Start: 06-02-2023 Creatinine [Mass/volume] in Serum or Plasma [facility] Provider Start: 05-06-2023 Esophagogastroduodenoscopy PHYSICIAN NO FAMILY Start: 12-23-2022 Plain chest X-ray PHYSICIAN NO FAMILY Start: 10-21-2022 Urnls dip stick/tablet rgnt auto w/o microscopy Nanci Carvajal MD Work Phone: Start: 07-08-2022 Urnls dip stick/tablet rgnt auto w/o microscopy Nanci Carvajal MD Work Phone: Start: 07-01-2022 Plain X-ray of bilateral hands MD Zhou Fischer Work Phone: Start: 05-15-2022 Ct abdomen & pelvis w/o contrst 1/> body re Nanci Carvajal MD Work Phone: Start: 04-01-2022 Cytp slctv cell enhancement interpj xcpt c/v Nanci Carvajal MD Work Phone: Start: 04-01-2022 Urnls dip stick/tablet rgnt auto w/o microscopy Nanci Carvajal MD Work Phone: Start: 11-11-2021 COVID-19, RAPID Danette S Barb [employer]ANK [employer] ARTIST Work Phone: Start: 11-11-2021 Iaadiadoo influenza Danette S Barb [employer]ANK [employer]IST Work Phone: Start: 06-13-2021 Radex hip unilateral with pelvis 2-3 views Zeinab Lomeli DO Work Phone: Start: 08-15-2020 Inject spine lumbar/sacral Edy Villalpando Work Phone: Start: 05-14-2020 Radex spine lumbosacral minimum 4 views Edy Villalpando Work Phone: Start: 05-08-2020 MRI of lumbar spine without contrast Edy Villalpando Work Phone: Start: 02-07-2020 Radex spine lumbosacral 2/3 views Flaquito mark Dickson Villalpando Work Phone: Plan of Treatment Date Care Activity Detail Author Start: 02-28-2024 Influenza vaccination Influenz a Vaccine (Season Ended) [facility] Start: 07-23-2023 DIABETES SCREEN DIABETES SCREEN [facility] Start: 07-23-2023 Diabetes Screening Diabetes Screenin g [facility] Start: 06-29-2023 Advance Directive Discussion Advance Directive Discussion [facility] Start: 06-29-2023 Behavioral Health Screening Behavioral Health Screening [facility] Start: 05-06-2023 [facility] Start: 02-27-2023 Covid-19 Vaccine ( season) Covid-19 Vaccine ( season) [facility] Start: 02-27-2023 Influenza vaccination [facility] Start: 07-04-2022 End: 05-03-2023 Ct abdomen & pelvis w/o contrst 1/> body re CT UROGRAM WO/W IVCON Radiology Routine Malignant neoplasm of urinary bladder, unspecified site (HCC) History of bladder cancer Expected: 07/04/2022, Expires: 05/03/2023 [facility] Work Phone: Comment on above: Expected: 07/04/2022 , Expires: 05/03/2023 Start: 07-01-2022 Hemolytic complement CH50 level [facility] Start: 06-29-2022 ADVANCE DIRECTIVE DISCUSSION ADVANCE DIRECTIVE DISCUSSION [facility] Start: 06-29-2022 DEPRESSION ASSESSMENT DEPRESSION ASS ESSMENT [facility] Start: 05-02-2022 End: 07-02-2022 CREATININE BLD CREATININE BLD Lab Routine Malignant neoplasm of urinary bladder, unspecified site (HCC) Abnormal urine cytology Expected: 05/02/2022, Expires: 07/02/2022 [facility] Work Phone: Comment on above: Expected: 05/02/2022 , Expires: 07/02/2022 Start: 04-03-2022 End: 06-03-2022 CREATININE BLD CREATININE BLD Lab Routine Malignant neoplasm of urinary bladder, unspecified site (HCC) History of bladder cancer Expected: 04/03/2022, Expires: 06/03/2022 [facility] Work Phone: Comment on above: Expected: 04/03/2022 , Expires: 06/03/2022 Start: 02-27-2022 Influenza vaccination INFLUENZA (#1) [facility] Start: 10-03-2021 COVID-19 VACCINE (4 - Booster for Pfizer series) COVID-19 VACCINE (4 - Booster for Pfizer series) [facility] Start: 07-30-2021 COVID-19 VACCINE (4 - Booster for Pfizer series) COVID-19 VACCINE (4 - Booster for Pfizer series) [facility] Start: 07-27-2021 Pneumococcal 65+ yea rs Vaccine (2 - PCV) Pneumococcal 65+ years Vaccine (2 - PCV) [facility] Start: 07-27-2021 Pneumococcal vaccination Pneum ococcal Vaccine Age 65+ (2 of 2 - PCV13) [facility] Start: 06-29-2021 ADVANCE DIRECTIVE DISCUSSION ADVANCE DIRECTIVE DISCUSSION [facility] Start: 06-29-2021 DEPRESSION ASSESSMENT DEPRESSION ASS ESSMENT [facility] Start: 06-07-2021 Shingles Vaccine (2 of 2) Shingles Vaccine (2 of 2) [facility] Start: 11-27-2020 End: 11-27-2020 Admission to same day surgery center 11/27/2020 Clinical Support Orthopedic Surgery Edy Villalpando MD [address] [place] [id number] [phone] [facility] Start: 11-12-2020 End: 11-12-2020 Clinical Support 11/12/2020 Clinical Support Orthopedic Surgery Edy Villalpando MD [address] [place] [address] [phone] [facility] Start: 05-15-2020 End: 05-15-2020 Clinical Support 05/15/2020 Clinical Support Orthopedic Surgery Edy Villalpando MD [address] [place] [address] [phone] [facility] Start: 05-14-2020 End: 05-14-2020 Office Visit 05/14/2020 Office Visit Orthopedic Surgery Edy Villalpando MD [address] [place] [address] [phone] [facility] Start: 03-16-2020 End: 03-16-2020 Appointment 03/16/2020 Appointment Physical Therapy Liss Rico, PT [address] [place] [address] [phone] [facility] Start: 03-14-2020 End: 03-14-2020 Appointment 03/14/2020 Appointment Physical Therapy Cb Cunningham PT [facility] Start: 03-09-2020 End: 03-09-2020 Appointment 03/09/2020 Appointment Physical Therapy Linda Gardner [facility] Start: 03-07-2020 End: 03-07-2020 Appointment 03/07/2020 Appointment Physical Therapy Linda Gardner [facility] Start: 03-02-2020 End: 03-02-2020 Appointment 03/02/2020 Appointment Physical Therapy Linda Gardner [facility] Start: 02-28-2020 Influenza vaccination Flu vaccine (# 1) [place], [place] Start: 02-28-2020 Influenza vaccinatio n given Sequential Influenza Vaccine (#1) [facility] Start: 02-28-2020 End: 02-28-2020 Appointment 02/28/2020 Appointment Physical Therapy Linda Gardner [facility] Start: 02-23-2020 End: 02-23-2020 Appointment 02/23/2020 Appointment Physical Therapy Linda Gardner [facility] Start: 02-21-2020 End: 02-21-2020 Appointment 02/21/2020 Appointment Physical Therapy Linda Gardner [facility] Start: 05-27-2018 Lipid panel [facility] Start: 04-24-2017 History and physical examination, annual for health maintenance Wellness Visit [facility] Start: 01-01-2016 Abdominal aortic aneurysm screening AAA screen [facility] Start: 01-01-2016 Fall risk assessment Falls Risk Asse ssment [facility] Start: 01-01-2016 Pneumococcal 65+ yea rs Vaccine (1 of 1 - PPSV23) Pneumococcal 65+ years Vaccine (1 of 1 - PPSV23) [place], [place] Start: 01-01-2016 Pneumococcal vaccination Pneum ococcal Vaccine Age 65+ (1 of 2 - PCV13) [facility] Start: 01-01-2016 Pneumococcal Vaccine : Age 65+ (1 of 1 - PPSV23) Pneumococcal Vaccine: Age 65+ (1 of 1 - PPSV23) [facility] Start: 01-01-2016 PNEUMOCOCCAL: 65+ (1 - PCV) PNEUMOCOCCAL: 65+ (1 - PCV) [facility] Start: 01-01-2016 PNEUMOVAX AGE 65 AND OVER WITH 5YR LOOKBACK (#1) PNEUMOVAX AGE 65 AND OVER WITH 5YR LOOKBACK (#1) [facility] Start: 2010 RSV Vaccine (1 - 1-d ose 60+ series) RSV Vaccine (1 - 1-dose 60+ series) [facility] Start: 2000 Administration of he rpes zoster vaccine Zoster Vaccines (1 of 2) [facility] Start: 2000 Screening for malign ant neoplasm of colon [place], [place] Start: 2000 Shingles Vaccine (1 of 2) Shingles Vaccine (1 of 2) [place] Start: 2000 SHINGRIX VACCINE (1 of 2) SHINGRIX VACCINE (1 of 2) [facility] Start: 01-01-1996 COLOGUARD (FIT-DNA) COLOGUARD (FIT-D NA) [facility] Start: 01-01-1996 Colonoscopy COLONOSCOPY [facility] Start: 01-01-1996 COLORECTAL CANCER SCREENING COLORECTAL CANCER SCREENING [facility] Start: 01-01-[address] COLONOGRAPHY [facility] Start: 01-01-1996 FECAL OCCULT BLOOD FECAL OCCULT BLOO D [facility] Start: 01-01-1996 Screening for malign ant neoplasm of colon [facility] Start: 01-01-1996 SIGMOIDOSCOPY [facility] Start: 1985 Lipid 1996 panel - S honey or Plasma Lipid Screening [facility] Start: 1985 Lipid panel Lipid Screening [facility] Start: 1985 LIPID SCREEN LIPID SCREEN [facility] Start: 1969 DTaP/Tdap/Td vaccine (1 - Tdap) DTaP/Tdap/Td vaccine (1 - Tdap) [facility] Start: 1969 SHINGRIX VACCINE (1 of 2) SHINGRIX VACCINE (1 of 2) [facility] Start: 1969 Urine microalbumin profile [facility] Start: 1968 Hepatitis C antibody , confirmatory test Hepatitis C Screening [facility] Start: 1968 Hepatitis C screening M [facility] Start: 1968 HEPATITIS C SCREENING [facility] Start: 1966 COVID-19 Vaccine (1 of 2) COVID-19 Vaccine (1 of 2) [facility] Start: 1962 Adolescent depressio n screening assessment [facility] Start: 1962 COVID-19 Vaccine (1) COVID-19 Vaccin e (1) [facility] Start: 1962 Depression Screen Depression Screen [facility] Start: 1962 Depression screening using PHQ-9 (Patient Health Questionnaire 9) score [facility] Start: 1956 Pneumococcal Vaccine : 65+ (1 - PCV) Pneumococcal Vaccine: 65+ (1 - PCV) [facility] Start: 1956 PNEUMOCOCCAL: 65+ (1 - PCV) PNEUMOCOCCAL: 65+ (1 - PCV) [facility] Start: 1953 History and physical examination, annual for health maintenance Wellness Visit [facility] Start: 1950 Abdominal aortic aneurysm screening [facility] Start: 1950 ABDOMINAL AORTIC ANEURYSM SCREENING ABDOMINAL AORTIC ANEURYSM SCREENING [facility] Start: 1950 Fall risk assessment Falls Risk Asse ssment [facility] Start: 1950 Hepatitis C screening Hepatitis C [facility] Start: 1950 Prostate specific antigen measurement PSA Level [facility] Start: 1950 Screening for malign ant neoplasm of colon [facility] Start: 1950 Tetanus vaccination Tetanus: Every 1 0yrs [facility] Start: 1950 US scan of abdominal aorta Abdominal Aortic Ultrasound [facility] End: 06-01-2023 Ct abdomen & pelvis w/o contrst 1/> body re CT UROGRAM WO/W IVCON Radiology Routine Malignant neoplasm of urinary bladder, unspecified site (HCC) 1 Occurrences starting 05/02/2022 until 06/01/2023 [facility] Work Phone: Comment on above: 1 Occurrences starti ng 05/02/2022 until 06/01/2023 CYTOLOGY NON-ENTERPRISE ACCOUNT EXECUTIVE CYTOLOGY NON-GY N Lab Routine Encounter for follow-up surveillance of bladder cancer 07/08/2022 3:27 PM EST [facility] Work Phone: CYTOLOGY NON-ENTERPRISE ACCOUNT EXECUTIVE CYTOLOGY NON-GY N Lab Routine Encounter for follow-up surveillance of bladder cancer History of bladder cancer 10/21/2022 3:43 PM EDT [facility] Work Phone: CYTOLOGY NON-ENTERPRISE ACCOUNT EXECUTIVE CYTOLOGY NON-GY N Lab Routine Encounter for follow-up surveillance of bladder cancer History of bladder cancer 06/02/2023 1:40 PM EST [facility] Work Phone: CYTOLOGY NON-ENTERPRISE ACCOUNT EXECUTIVE CYTOLOGY NON-GY N Lab Routine Encounter for follow-up surveillance of bladder cancer History of bladder cancer 12/01/2023 2:53 PM EDT [facility] Work Phone: Patient Education Esophageal Dil ation Hiatal Hernia (DC) [facility] Work Phone: [facility] Immunizations Immunization Date Immunization Notes Care Provider Evette clay 04-12-2021 influenza virus vacc ine, unspecified formulation Ct (I-Stat) Work Phone: [facility] Payers Date Payer Category Payer Unknown [id number] 2022 Self-pay 2021 Unknown [id number] 2020 Unknown [id number] 2017 Unknown NABILA BCBS OUT OF STATE [facility] xxxxxxxxxxxx 2017-Present xxxxxxxxxxxx [id number] 2017 Unknown [id number] [id number] .[id number] 2012 Medicare MEDICARE MEDICAR E PART A & B xxxxxxxxxxx 2012-Present [place] xxxxxxxxxxx [id number] .[id number] 2012 Medicare [id number] .[id number] 2012 Medicare [id number] 1.13.159.2 .[id number] 1959 Medicare [id number] [id number] .7.3.078453.315 1959 Medicare [id number] 1959 Unknown [id number] 1.2.840.982865.1.13.239.2 .7.3.984604.315 1950 Unknown [id number] 2.16.840.1.331617.3.579.2 .903 1950 Unknown [id number] 2.16.840.1.750903.3.579.2 .903 1950 Unknown [id number] 2.16.840.1.476634.3.579.2 .903 1950 Unknown [id number] 2.16.840.1.505957.3.579.2 .174 1950 Unknown [id number] 2.16.840.1.130939.3.579.2 .174 1950 Unknown [id number] 2.16.840.1.583843.3.579.2 .174 1950 Unknown [id number] 2.16.840.1.593531.3.579.2 .174 1950 Unknown [id number] 2.16.840.1.813533.3.579.2 .593 1950 Unknown [id number] 2.16.840.1.606048.3.579.2 .593 1950 Unknown [id number] 2.16.840.1.202534.3.579.2 .593 1950 Unknown [id number] 2.16.840.1.968587.3.579.2 .593 1950 Unknown [id number] 2.840.1.139093.3.579.2 .1259 1950 Unknown [id number] 2.840.1.110213.3.579.2 .125 1950 Unknown [id number] 2.840.1.050609.3.579.2 .125 1950 Unknown [id number] 2.840.1.986903.3.579.2 .125 1950 Unknown [id number] 2.840.1.655049.3.579.2 .903 Blue Cross Blue Shield [id number] Medicare Medicare Outpatient [id number] Private Health Insurance [facility] [id number] Unknown [id number] 2.840.1.156218.3.579.2 .531 Unknown [id number] 2.840.1.227777.3.579.2 .531 Unknown [id number] 2.16840.1.791387.3.579.2 .531 Unknown [id number] 2.840.1.297762.3.579.2 .531 Unknown [id number] 2.16840.1.140990.3.579.2 .531 Unknown [id number] 2.16.840.1.614899.3.579.2 .531 Unknown [id number] 2.16.840.1.058616.3.579.2 .531 Unknown [id number] 2.16.840.1.233827.3.579.2 .531 Unknown [id number] 2.16.840.1.320097.3.579.2 .531 Unknown [id number] 2.16.840.1.938362.3.579.2 .531 Social History Date Type Detail Facility Start: 05-11-2018 End: 02-07-2020 Tobacco smoking status NHIS Former smoker [employer] Start: 02-07-2020 End: 10-20-2023 Alcohol intake Ex-drinker (finding) [facility] Start: 1950 Sex Assigned At Not on file [facility] Start: 10-14-2021 End: 05-15-2022 Exposure to SARS-CoV-2 (event) Not sure [facility] End: 03-24-2002 History of tobacco use Current smoker [employer] Start: 09-12-2017 End: 05-11-2018 Tobacco use and exposure Never used [employer] Start: 09-12-2017 End: 11-11-2021 Alcohol intake [facility]finding[facility] [employer] [place] Start: 03-24-2013 Alcohol Comment rarely [place], [place] Start: 08-02-2020 End: 01-20-2023 Sex Assigned At [facility] [employer] Other Start: 1950 Sex Assigned At Male F [facility] Start: 08-02-2020 End: 01-20-2023 History of Social function [facility] National Score (1-100), lower number is lower risk 77 [facility] Goals Date Patient Goal Desired Activity /State Clinical Notes 11-09-2020 to 12-01-2023 Anni Johnston LPN - 12/01/2023 2:52 PM Nanci Davey MD - 12/01/2023 2:45 PM Anni Gibbs LPN - 12/01/2023 2:18 PM EDTTmarcelasai Anni Eisenberg LPN - 12/01/2023 2:18 PM EDT Note Date & Type Note Facility 12-01-2023 Note HNO ID: [id number] Author: ANNI JOHNSTON LPN Service: ? Author Type: LICENSED NURSE Type: Progress Notes Filed: 12/01/2023 14:55 Note Text: UNIVERSAL PROTOCOL / SAFETY CHECKLIST Procedure to be Performed: cystoscopy Sign In: A Moment of CARE was completed. Personnel directly involved with the procedure wore the appropriate PPE (Personal Protective Equipment). No special equipment needed. Patient/Surrogate Stated/Verified: PATIENT VERIFIED(optional for EMERGENT procedures): Patient name, Date of , Relevant allergies, and The intended procedure Time Out Communication: Intended patient and procedure match the source documents. Consent documented and matches the intended procedure. No relevant labs, photos, and/or imaging studies were applicable for review. No correct side/site applicable for marking and visibility. No medications required for procedure. Fire risk assessed and interventions discussed. No implant(s) inserted. Sign Out: SIGN OUT (optional for EMERGENT procedures): All specimen containers correctly labeled. All instruments, equipment, possible retained foreign bodies accounted for. Post-procedure follow-up management communicated and Plan of Care Visit completed when applicable. Anni Johnston LPN [facility] 12-01-2023 History of Present illness Narrative UNIVERSAL PROTOCOL / SAFETY CHECKLIST Procedure to be Performed: cystoscopy Sign In: A Moment of CARE was completed. Personnel directly involved with the procedure wore the appropriate PPE (Personal Protective Equipment). No special equipment needed. Patient/Surrogate Stated/Verified: PATIENT VERIFIED(optional for EMERGENT procedures): Patient name, Date of , Relevant allergies, and The intended procedure Time Out Communication: Intended patient and procedure match the source documents. Consent documented and matches the intended procedure. No relevant labs, photos, and/or imaging studies were applicable for review. No correct side/site applicable for marking and visibility. No medications required for procedure. Fire risk assessed and interventions discussed. No implant(s) inserted. Sign Out: SIGN OUT (optional for EMERGENT procedures): All specimen containers correctly labeled. All instruments, equipment, possible retained foreign bodies accounted for. Post-procedure follow-up management communicated and Plan of Care Visit completed when applicable. Anni Johnston LPN PHYSICIANS NOTE: CYSTOSCOPY PROCEDURE: December 01, 2023 Sign In History and Physical Exam reviewed and is unchanged. Primary Diagnosis: Encounter for follow-up surveillance of bladder cancer (primary encounter diagnosis) History of bladder cancer Informed Consent Discussed: Yes. Risks, benefits, alternatives and personnel discussed with patient who consents to proceed. Sign in Communication: Completed Time Out: Team Confirms the Correct Patient, Correct Procedure; Cystoscopy, Correct Site and Site Marking (not applicable), Correct Position. Affirmation of Time Out: YES Sign Out: Sign Out Discussion: Completed Prior patient of Dr. 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 Urethral stricture: None The entire mucosa was examined. The scope was flexed in the dome of the bladder and used to look at the bladder in retroverted fashion. Findings: Prior resection sites noted The scope was removed with a repeat examination of the prostate and penile urethra done during removal. Plan - urine cytology - HOPS cystoscopy 6 months - Plan repeat CT urogram 12 months Nanci Carvajal MD documented in this encounter [facility] 12-01-2023 Note HNO ID: [id number] Author: NANCI CARVAJAL MD Service: ? Author Type: Physician Type: Progress Notes Filed: 12/01/2023 14:55 Note Text: PHYSICIANS NOTE: CYSTOSCOPY PROCEDURE: December 01, 2023 Sign In History and Physical Exam reviewed and is unchanged. Primary Diagnosis: Encounter for follow-up surveillance of bladder cancer (primary encounter diagnosis) History of bladder cancer Informed Consent Discussed: Yes. Risks, benefits, alternatives and personnel discussed with patient who consents to proceed. Sign in Communication: Completed Time Out: Team Confirms the Correct Patient, Correct Procedure; Cystoscopy, Correct Site and Site Marking (not applicable), Correct Position. Affirmation of Time Out: YES Sign Out: Sign Out Discussion: Completed Prior patient of Dr. 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 Urethral stricture: None The entire mucosa was examined. The scope was flexed in the dome of the bladder and used to look at the bladder in retroverted fashion. Findings: Prior resection sites noted The scope was removed with a repeat examination of the prostate and penile urethra done during removal. Plan - urine cytology - HOPS cystoscopy 6 months - Plan repeat CT urogram 12 months Nanci Carvajal MD [facility] 12-01-2023 Nurse Note Actual procedure/procedure scheduled: Yes Performing provider/scheduled provider: Yes Patient was roomed in: Q9- 09 County Extension Agent offered:Patient declines Patient arrived in the room at: 1430 Patient ready for procedure: 1444 The procedure started at ( Time Only): 1448 The procedure ended at: 1451 Was the procedure delayed: No The patient left the procedure room at: 1458 Anni Johnston LPN PRE PROCEDURE ASSESSMENT- Cysto Procedure Indication: Cystoscopy Latex Allergy: No Allergies reviewed and updated. Yes Heart valve replacement: No Joint replacement: Yes, hip 2009 Back Office UA otained: yes PROCEDURE PREP-Cysto Patient ID with two(2)identifiers verified by: Anni Johnston LPN Pre-Procedure Antibiotics: None taken at home nor prior to procedure Patient Prep: Betadine Scrub to perineum and placement of Sterile Drape. COMPLETED Anesthetic Given:10 cc 2% Lidocaine jelly Anni Johnston LPN UNIVERSAL PROTOCOL / SAFETY CHECKLIST Procedure to be performed: Cystoscopy Sign in Communication: Completed Time Out: Team Confirms the Correct Patient, Correct Procedure, Correct Site and Site Marking, Correct Position (if applicable). Sign Out Discussion: Completed Anni Johnston LPN POST PROCEDURE NURSE ASSESSMENT Present along with physician during procedure exam. Anni Johnston LPN Instruction sheet given and reviewed and patient verbalizes understanding: yes Post Procedure Antibiotic: As Prescribed Current pain intensity is 0 on a 0-10 pain scale. Anni Johnston LPN AMBULATORY PATIENT EDUCATION THE FOLLOWING WAS EVALUATED Motivation To Learn: Interested Family/Significant Other Support: Unable to assess - Family not present Cognitive Ability: Alert/Oriented Method of Instruction: Individual instruction Written instruction/Handouts Verbal instruction The Following Influencing Factors Were Barriers To This Education Session: None The Following Physical Limitations Were Barriers To This Education Session: None Instruction Provided To: Patient Shipping Technician Present: not applicable Discipline: Nursing Learning Topic: SURVIVAL SKILLS: Symptom Management Patient Evaluation: Verbalizes understanding: Yes Supplemental Material Given: Written Material Instructed By Anni Johnston LPN In Department Urology . [facility] 12-01-2023 Nurse Note Actual procedure/procedure scheduled: Yes Performing provider/scheduled provider: Yes Patient was roomed in: Q9- 09 County Extension Agent offered:Patient declines Patient arrived in the room at: 1430 Patient ready for procedure: 1444 The procedure started at ( Time Only): 1448 The procedure ended at: 1451 Was the procedure delayed: No The patient left the procedure room at: 1458 Anni Johnston LPN PRE PROCEDURE ASSESSMENT- Cysto Procedure Indication: Cystoscopy Latex Allergy: No Allergies reviewed and updated. Yes Heart valve replacement: No Joint replacement: Yes, hip 2009 Back Office UA otained: yes PROCEDURE PREP-Cysto Patient ID with two(2)identifiers verified by: Anni Johnston LPN Pre-Procedure Antibiotics: None taken at home nor prior to procedure Patient Prep: Betadine Scrub to perineum and placement of Sterile Drape. COMPLETED Anesthetic Given:10 cc 2% Lidocaine jelly Anni Johnston LPN UNIVERSAL PROTOCOL / SAFETY CHECKLIST Procedure to be performed: Cystoscopy Sign in Communication: Completed Time Out: Team Confirms the Correct Patient, Correct Procedure, Correct Site and Site Marking, Correct Position (if applicable). Sign Out Discussion: Completed Anni Johnston LPN POST PROCEDURE NURSE ASSESSMENT Present along with physician during procedure exam. Anni Johnston LPN Instruction sheet given and reviewed and patient verbalizes understanding: yes Post Procedure Antibiotic: As Prescribed Current pain intensity is 0 on a 0-10 pain scale. Anni Johnston LPN AMBULATORY PATIENT EDUCATION THE FOLLOWING WAS EVALUATED Motivation To Learn: Interested Family/Significant Other Support: Unable to assess - Family not present Cognitive Ability: Alert/Oriented Method of Instruction: Individual instruction Written instruction/Handouts Verbal instruction The Following Influencing Factors Were Barriers To This Education Session: None The Following Physical Limitations Were Barriers To This Education Session: None Instruction Provided To: Patient Shipping Technician Present: not applicable Discipline: Nursing Learning Topic: SURVIVAL SKILLS: Symptom Management Patient Evaluation: Verbalizes understanding: Yes Supplemental Material Given: Written Material Instructed By Anni Johnston LPN In Department Urology . documented in this encounter [facility] 10-20-2023 History of Present illness Narrative HISTORY Patient Name: Timur Francisco Date of Exam: 10/20/2023 Diagnosis: Perioperative Medical Evaluation (H33.41) Reason for visit/consultation: Medical risk stratification for surgery History of current illness: Timur Francisco is a 72 y.o. male who presents for preoperative medical risk stratification prior to eye surgery at the request of Dr. Olea. His medical conditions include: HTN - Chronic, compliant with medication RA - compliant with meds, last dose of diclofenac was yesterday GERD- Chronic, compliant with medication JOHNATHON- noncompliant with CPAP Type of anesthesia for upcoming surgery: none listed Anesthesia History: Yes, without complications Patient Active Problem List Diagnosis Spondylolisthesis of lumbar region Benign prostatic hyperplasia with lower urinary tract symptoms Esophageal reflux Essential (primary) hypertension Rheumatoid arthritis (HCC) JOHNATHON (obstructive sleep apnea) Past Medical History: Diagnosis Date Bladder cancer (HCC) Hypertension Past Surgical History: Procedure Laterality Date APPENDECTOMY BACK SURGERY CHOLECYSTECTOMY FOOT SURGERY HIP SURGERY Allergies Allergen Reactions Meperidine (Pf) Anaphylaxis Review of Systems Constitutional: Negative for fever. Respiratory: Negative for cough, shortness of breath and wheezing. Cardiovascular: Negative for chest pain and palpitations. Neurological: Negative for dizziness, seizures and headaches. Social History Tobacco Use Smoking status: Former Smokeless tobacco: Never Substance Use Topics Alcohol use: Not Currently Social History Substance and Sexual Activity Drug Use Not on file Marital Status: Family History Problem Relation Age of Onset Heart disease Mother Diabetes Mother Current Outpatient Medications Medication Sig Dispense Refill acetaminophen (TYLENOL) 500 MG tablet Take 1 (one) tablet (500 mg total) by mouth every 6 (six) hours as needed . amLODIPine-benazepril (LOTREL) 10-20 mg per capsule Take 1 (one) capsule by mouth daily . diclofenac sodium (VOLTAREN) 75 MG EC tablet Take 1 (one) tablet (75 mg total) by mouth daily . finasteride (PROSCAR) 5 mg tablet Take 1 (one) tablet (5 mg total) by mouth daily . folic acid (FOLVITE) 1 MG tablet Take 1 (one) tablet (1,000 mcg total) by mouth daily . hydroxychloroquine (PLAQUENIL) 200 mg tablet Take 1 (one) tablet (200 mg total) by mouth daily . methoTREXate (TREXALL) 2.5 MG tablet TAKE 5 TABLETS BY MOUTH EVERY WEEK ONCE A WEEK REMEBER YOUR STANDING LABS qmpjqgxp-rfc-okoqfcs sulfate (One Daily Multi-Vit w-Mineral) 4.5 mg iron Tab Take by mouth . omeprazole (PRILOSEC) 40 MG capsule Take 20 mg by mouth daily . pyridoxine HCl, vitamin B6, (VITAMIN B-6 ORAL) Take 100 mg by mouth . gluc najera/chondro najera A/vit C/Mn (GLUCOSAMINE 1500 COMPLEX ORAL) Take by mouth . No current facility-administered medications for this visit. PHYSICAL Patient Name: Timur Francisco Age: 72 y.o. BP 118/75 Pulse 60 Temp 98.3 F (36.8 C) (Infrared) Resp 17 Ht 6' Wt 92.1 kg (203 lb) SpO2 95% BMI 27.53 kg/m Physical Exam Constitutional: General: He is not in acute distress. Appearance: He is well-developed. HENT: Head: Normocephalic and atraumatic. Eyes: General: No scleral icterus. Right eye: No discharge. Left eye: No discharge. Cardiovascular: Rate and Rhythm: Normal rate and regular rhythm. Heart sounds: Normal heart sounds. No murmur heard. Pulmonary: Effort: Pulmonary effort is normal. No respiratory distress. Breath sounds: Normal breath sounds. No wheezing or rales. Abdominal: General: Bowel sounds are normal. There is no distension. Palpations: Abdomen is soft. Tenderness: There is no abdominal tenderness. Musculoskeletal: Cervical back: Normal range of motion and neck supple. Skin: General: Skin is warm and dry. Neurological: Mental Status: He is alert and oriented to person, place, and time. Psychiatric: Behavior: Behavior normal. Thought Content: Thought content normal. Judgment: Judgment normal. EKG Results: EKG done today reviewed and interpreted by me, results on EKG documentation (attached) Results for orders placed or performed in visit on 10/20/23 ECG 12 Lead Result Value Ref Range Atrial Rate Ventricular Rate P-R Interval QRS Duration Q-T Interval Q-T Interval (corrected) QTC Calculation (Bezet) P Alpine R Alpine T Alpine IMPRESSION/PLAN Timur Francisco is a 72 y.o. male who presents for preoperative medical risk stratification prior to eye surgery at the request of Dr. Kidd ref. provider found. Risk factors for surgery include: HTN - Chronic, at goal RA - compliant with meds, last dose of diclofenac was yesterday GERD- Chronic, stable JOHNATHON- noncompliant with CPAP Preoperative recommendations: I reviewed the patient's pertinent medical history and medications. Questions regarding his medical issues were answered and discussed. No additional recommendations or changes are warranted prior to his scheduled surgery. Postoperative recommendations: Patient was instructed to continue his current medical regimen following surgery, unless instructed otherwise by his surgeon. The patient will follow up with his PCP for any additional medical concerns. Risk Assessment: Pt would be considered at a Low risk of morbidity from additional treatment/surgery. This patient has an acceptable cardiac risk for the intended procedure. Thank you for the opportunity to evaluate your patient. Please feel free to contact our office with any questions. A copy of this evaluation was provided to the referring physician. Sabina Red DO 10/20/23 documented in this encounter [facility] 07-21-2023 Evaluation note Encounter Date Diagnosis Assessment Notes Jun, Schatzki's ring (ICD-10 - Q39.4) The patient has no further dysphagia after the EGD with dilation. He should continue his Omeprazole & follow up in the office as needed Jun, Hiatal hernia (ICD-10 - K44.9) The patient has a small hiatla hernia with a schatzki's ring above this. [employer] Other 12-05-2023 NoteHNO ID: [id number] Author: Brisa Nieto RN Service: ? Author Type: Registered Nurse Type: Progress Notes Filed: 06/02/2023 1:39 PM Note Text: UNIVERSAL PROTOCOL / SAFETY CHECKLIST Procedure to be Performed: cystoscopy Sign In: A Moment of CARE was completed. Personnel directly involved with the procedure wore the appropriate PPE (Personal Protective Equipment). Patient/Surrogate Stated/Verified: PATIENT VERIFIED(optional for EMERGENT procedures): Patient name, Date of , Relevant allergies, and The intended procedure Time Out Communication: Intended patient and procedure match the source documents. Consent documented and matches the intended procedure. Relevant labs, photos, and/or imaging studies have been reviewed. Correct side/site marked and visible. Medications required for procedure verified. Fire risk assessed and interventions discussed. No implant(s) inserted. Sign Out: SIGN OUT (optional for EMERGENT procedures): All specimen containers correctly labeled. [facility] History of Present illness Narrative* Brisa Nieto RN - 06/02/2023 1:39 PM EST UNIVERSAL PROTOCOL / SAFETY CHECKLIST Procedure to be Performed: cystoscopy Sign In: A Moment of CARE was completed. Personnel directly involved with the procedure wore the appropriate PPE (Personal Protective Equipment). Patient/Surrogate Stated/Verified: PATIENT VERIFIED(optional for EMERGENT procedures): Patient name, Date of , Relevant allergies, and The intended procedure Time Out Communication: Intended patient and procedure match the source documents. Consent documented and matches the intended procedure. Relevant labs, photos, and/or imaging studies have been reviewed. Correct side/site marked and visible. Medications required for procedure verified. Fire risk assessed and interventions discussed. No implant(s) inserted. Sign Out: SIGN OUT (optional for EMERGENT procedures): All specimen containers correctly labeled. Brisa Nieto RN * Nanci Carvajal MD - 06/02/2023 1:31 PM EST PHYSICIANS NOTE: CYSTOSCOPY PROCEDURE: June 02, 2023 Sign In History and Physical Exam reviewed and is unchanged. Primary Diagnosis: Encounter for follow-up surveillance of bladder cancer (primary encounter diagnosis) History of bladder cancer Informed Consent Discussed: Yes. Risks, benefits, alternatives and personnel discussed with patientwho consents to proceed. Sign in Communication: Completed Time Out: Team Confirms the Correct Patient, Correct Procedure; Cystoscopy, Correct Site and Site Marking (not applicable), Correct Position. Affirmation of Time Out: YES Sign Out: Sign Out Discussion: Completed Prior patient of Dr. 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/p TURBT 12/07/2019 - path benign S/p s/p cystoscopy w/ cysview, bilateral ureteral washings and retrograde pyelography, and bladder and prostatic fossa biopsies on 07/25/2020 - path CIS S/p BCG x6, finishing 10/01/2020 S/p maintenance BCG, finishing 03/05/2021 Last cystoscopy 01/20/2023 CT Urogram 05/2023 - pending Details of Procedure: After sterile prep and drape, the flexible cystoscope was placed through the urethra which was examined in its entirety. Urethral stricture: None The entire mucosa was examined. The scope was flexed in the dome of the bladder and used to look atthe bladder in retroverted fashion. Findings: Prior resection site noted Normal UOs bilaterally No mucosal lesions or papillary tumors Prostate with TUR defect Normal urethra The scope was removed with a repeat examination of the prostate and penile urethra done during removal. Plan - urine cytology - f/u CT urogram - cystoscopy 6 months if all above WNL Nanci Carvajal MD [facility] NoteHNO ID: [id number] Author: Nanci Carvajal MD Service: ? Author Type: Physician Type: Progress Notes Filed: 06/02/2023 1:53 PM Note Text: PHYSICIANS NOTE: CYSTOSCOPY PROCEDURE: June 02, 2023 Sign In History and Physical Exam reviewed and is unchanged. Primary Diagnosis: Encounter for follow-up surveillance of bladder cancer (primary encounter diagnosis) History of bladder cancer Informed Consent Discussed: Yes. Risks, benefits, alternatives and personnel discussed with patient who consents to proceed. Sign in Communication: Completed Time Out: Team Confirms the Correct Patient, Correct Procedure; Cystoscopy, Correct Site and Site Marking (not applicable), Correct Position. Affirmation of Time Out: YES Sign Out: Sign Out Discussion: Completed Prior patient of Dr. 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/p TURBT 12/07/2019 - path benign S/p s/p cystoscopy w/ cysview, bilateral ureteral washings and retrograde pyelography, and bladder and prostatic fossa biopsies on 07/25/2020 - path CIS S/p BCG x6, finishing 10/01/2020 S/p maintenance BCG, finishing 03/05/2021 Last cystoscopy 01/20/2023 CT Urogram 05/2023 - pending Details of Procedure: After sterile prep and drape, the flexible cystoscope was placed through the urethra which was examined in its entirety. Urethral stricture: None The entire mucosa was examined. The scope was flexed in the dome of the bladder and used to look at the bladder in retroverted fashion. Findings: Prior resection site noted Normal UOs bilaterally No mucosal lesions or papillary tumors Prostate with TUR defect Normal urethra The scope was removed with a repeat examination of the prostate and penile urethra done during removal. Plan - urine cytology - f/u CT urogram - cystoscopy 6 months if all above WNL Nanci Carvajal, [facility]12-05-2023 Nurse Note* Brisa Nieto, REGINO - 06/02/2023 1:29 PM EST Actual procedure/procedure scheduled: Yes Performing provider/scheduled provider: Yes Patient was roomed in: Q9- 06 County Extension Agent offered:Patient accepts, visit chaperoned by Patient arrived in the room at: 1310 Patient ready for procedure: 1320 The procedure started at ( Time Only): 1330 The procedure ended at: 1332 Was the procedure delayed: No The patient left the procedure room at: 1340 Brisa Nieto RN PRE PROCEDURE ASSESSMENT- Cysto Procedure Indication: Cystoscopy Latex Allergy: No Allergies reviewed and updated. Yes Heart valve replacement: No Joint replacement: Yes, over 2 years ago Back Office UA otained: yes PROCEDURE PREP-Cysto Patient ID with two(2)identifiers verified by: Brisa Nieto RN Pre-Procedure Antibiotics: None taken at home nor prior to procedure Patient Prep: Betadine Scrub to perineum and placement of Sterile Drape. COMPLETED Anesthetic Given:10 cc 2% Lidocaine jelly Brisa Nieto RN UNIVERSAL PROTOCOL / SAFETY CHECKLIST Procedure to be performed: Cystoscopy Sign in Communication: Completed Time Out: Team Confirms the Correct Patient, Correct Procedure, Correct Site and Site Marking, Correct Position (if applicable). Sign Out Discussion: Completed Brisa Nieto RN POST PROCEDURE NURSE ASSESSMENT Present along with physician during procedure exam. Brisa Nieto RN Instruction sheet given and reviewed and patient verbalizes understanding: yes Post Procedure Antibiotic: As Prescribed Current pain intensity is 0 on a 0-10 pain scale. Brisa Nieto RN AMBULATORY PATIENT EDUCATION THE FOLLOWING WAS EVALUATED Motivation To Learn: Interested Family/Significant Other Support: High - Very involved in pt care Cognitive Ability: Alert/Oriented Method of Instruction: Individual instruction Written instruction - handouts Verbal instruction The Following Influencing Factors Were Barriers To This Education Session: None The Following Physical Limitations Were Barriers To This Education Session: None Instruction Provided To: Patient Shipping Technician Present: not applicable Discipline: Nursing Learning Topic: SURVIVAL SKILLS: Complication Prevention Symptom Management Patient Evaluation: Verbalizes understanding: Yes Supplemental Material Given: Written Material Instructed By Brisa Nieto RN In Department Urology . [facility] NoteHNO ID: [id number] Author: Becky Burgos RT(R) Service: Radiology Author Type: Technologist Type: Progress Notes Filed: 06/02/2023 1:00 PM Note Text: Radiology Service Progress Note PATIENT NAME: Timur Francisco DATE OF SERVICE: June 02, 2023 TIME: 12:50 PM PATIENT IDENTITY VERIFICATION COMPLETED USING TWO (2) IDENTIFIERS: Name and Date of confirmed by patient verbally and Name and Date of confirmed by identification band. FALL SCREENING: Has the patient had 2 falls in the last year or 1 fall with injury or currently using an Ambulatory Assistive Device (Walker, Cane, Wheelchair, Crutches, etc.)? No PATIENT GENDER DATA: Male PATIENT RELEVANT IMPLANT DATA REVIEWED: Yes RADIOLOGY DEPARTMENT: CT; Exam(s) Completed: Abdomen/Pelvis PERIPHERAL IV DATA: Site assessment: Clean,Dry and Intact, Site disposition Discontinued SIGNED BY: RT Gricelda(R) June 02, 2023 12:50 [facility]12-05-2023 History of Present illness Narrative* Becky Burgos RT(R) - 06/02/2023 12:50 PM EST Radiology Service Progress Note PATIENT NAME: Timur Francisco DATE OF SERVICE: June 02, 2023 TIME: 12:50 PM PATIENT IDENTITY VERIFICATION COMPLETED USING TWO (2) IDENTIFIERS: Name and Date of confirmedby patient verbally and Name and Date of confirmed by identification band. FALL SCREENING: Has the patient had 2 falls in the last year or 1 fall with injury or currently using an Ambulatory Assistive Device (Walker, Cane, Wheelchair, Crutches, etc.)? No PATIENT GENDER DATA: Male PATIENT RELEVANT IMPLANT DATA REVIEWED: Yes RADIOLOGY DEPARTMENT: CT; Exam(s) Completed: Abdomen/Pelvis PERIPHERAL IV DATA: Site assessment: Clean,Dry and Intact, Site disposition Discontinued SIGNED BY: RT Gricelda(R) June 02, 2023 12:50 PM * Diane Fine RN - 06/02/2023 12:00 PM EST Radiology Service Progress Note DATE OF SERVICE: June 02, 2023 TIME: 12:36 PM PATIENT WEIGHT: 208 LBS PATIENT IDENTITY VERIFICATION COMPLETED USING TWO (2) STANDARD IDENTIFIERS: Name and Date of confirmed by patient verbally and Name and Date of confirmed by identification band. FALL SCREENING: Has the patient had 2 falls in the last year or 1 fall with injury or currently using an Ambulatory Assistive Device (Walker, Cane, Wheelchair, Crutches, etc.)? No PATIENT GENDER DATA: Male ALLERGIES: Reviewed and unchanged CONTRAST ALLERGY: No EXAM: CT -CONTRAST INDUCED NEPHROPATHY RISK FACTORS: Patient age > 60 years CREATININE: Creatinine Date Value Ref Range Status 05/15/2022 0.97 0.73 - 1.22 mg/dL Final 07/23/2020 0.93 0.73 - 1.22 mg/dL Final Creatinine (POCT) Date Value Ref Range Status 06/02/2023 0.80 0.7 - 1.4 mg/dL Final eGFR (POCT) Date Value Ref Range Status 06/02/2023 >60 mL/min/1.73 m2 Final eGFR- Date Value Ref Range Status 07/23/2020 >60 Final P.O.C.T. RESULTS: POC done: Yes, See Lab Tab June 02, 2023 TREATMENT: No Hydration needed. IV SITE: Ambulatory: A peripheral IV was started in the Right antecubital site with a Angio cath: 20 gauge. IV SITE APPEARANCE: Clean,Dry and Intact SIGNATURE: Diane Fine RN PATIENT NAME: Timur Francisco DATE: June 02, 2023 TIME: 12:36 PM documented in this encounterMount [facility]12-05-2023 NoteHNO ID: [id number] Author: Diane Fine RN Service: Nursing Author Type: Registered Nurse Type: Progress Notes Filed: 06/02/2023 12:43 PM Note Text: Radiology Service Progress Note DATE OF SERVICE: June 02, 2023 TIME: 12:36 PM PATIENT WEIGHT: 208 LBS PATIENT IDENTITY VERIFICATION COMPLETED USING TWO (2) STANDARD IDENTIFIERS: Name and Date of confirmed by patient verbally and Name and Date of confirmed by identification band. FALL SCREENING: Has the patient had 2 falls in the last year or 1 fall with injury or currently using an Ambulatory Assistive Device (Walker, Cane, Wheelchair, Crutches, etc.)? No PATIENT GENDER DATA: Male ALLERGIES: Reviewed and unchanged CONTRAST ALLERGY: No EXAM: CT -CONTRAST INDUCED NEPHROPATHY RISK FACTORS: Patient age > 60 years CREATININE: Creatinine Date Value Ref Range Status 05/15/2022 0.97 0.73 - 1.22 mg/dL Final 07/23/2020 0.93 0.73 - 1.22 mg/dL Final Creatinine (POCT) Date Value Ref Range Status 06/02/2023 0.80 0.7 - 1.4 mg/dL Final eGFR (POCT) Date Value Ref Range Status 06/02/2023 >60 mL/min/1.73 m2 Final eGFR- Date Value Ref Range Status 07/23/2020 >60 Final P.O.C.T. RESULTS: POC done: Yes, See Lab Tab June 02, 2023 TREATMENT: No Hydration needed. IV SITE: Ambulatory: A peripheral IV was started in the Right antecubital site with a Angio cath: 20 gauge. IV SITE APPEARANCE: Clean,Dry and Intact SIGNATURE: Diane Fine RN PATIENT NAME: Timur Francisco DATE: June 02, 2023 TIME: 12:36 [facility]11-08-2023 Procedure [facility]07-25-2023 NoteHNO ID: [id number] Author: Leonora Ashby RN Service: ? Author Type: Registered Nurse Type: Progress Notes Filed: 01/20/2023 4:32 PM Note Text: UNIVERSAL PROTOCOL / SAFETY CHECKLIST Procedure to be Performed: cystoscopy Sign In: A Moment of CARE was completed. Personnel directly involved with the procedure wore the appropriate PPE (Personal Protective Equipment). Patient/Surrogate Stated/Verified: PATIENT VERIFIED(optional for EMERGENT procedures): Patient name, Date of , Relevant allergies, and The intended procedure Time Out Communication: Intended patient and procedure match the source documents. Consent documented and matches the intended procedure. Relevant labs, photos, and/or imaging studies have been reviewed. No correct side/site applicable for marking and visibility. Medications required for procedure verified. No fire risk assessment and interventions applicable. No implant(s) inserted. Sign Out: SIGN OUT (optional for EMERGENT procedures): All specimen containers correctly labeled. No instruments, equipment or retained foreign bodies applicable. Post-procedure follow-up management communicated and Plan of Care Visit completed when applicable. [facility] NoteHNO ID: [id number] Author: Nanci Carvajal MD Service: ? Author Type: Physician Type: Progress Notes Filed: 01/20/2023 4:51 PM Note Text: PHYSICIANS NOTE: CYSTOSCOPY PROCEDURE: January 20, 2023 Sign In History and Physical Exam reviewed and is unchanged. Primary Diagnosis: Encounter for follow-up surveillance of bladder cancer (primary encounter diagnosis) History of bladder cancer Informed Consent Discussed: Yes. Risks, benefits, alternatives and personnel discussed with patient who consents to proceed. Sign in Communication: Completed Time Out: Team Confirms the Correct Patient, Correct Procedure; Cystoscopy, Correct Site and Site Marking (not applicable), Correct Position. Affirmation of Time Out: YES Sign Out: Sign Out Discussion: Completed Prior patient of Dr. 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/p TURBT 12/07/2019 - path benign S/p s/p cystoscopy w/ cysview, bilateral ureteral washings and retrograde pyelography, and bladder and prostatic fossa biopsies on 07/25/2020 - path CIS S/p BCG x6, finishing 10/01/2020 S/p maintenance BCG, finishing 03/05/2021 Last cystoscopy 10/21/2022 CT Urogram 04/2022 - no urothelial lesions, diffuse diverticulosis Details of Procedure: After sterile prep and drape, the flexible cystoscope was placed through the urethra which was examined in its entirety. Urethral stricture: None The entire mucosa was examined. The scope was flexed in the dome of the bladder and used to look at the bladder in retroverted fashion. Findings: No mucosal lesions or papillary tumors Prior resection sites noted without recurrence Normal UOs bilaterally Prostate noted +TUR defect Normal urethra The scope was removed with a repeat examination of the prostate and penile urethra done during removal. Plan - urine cytology - CT Urogram May 2023 - cystoscopy May 2023 [facility] NotePROCEDURE: US KIDNEYS BLADDER DATE: 11/22/2022 7:06 AM CDT COMPARISONS: CT abdomen pelvis 03/22/[address] of the abdomen and pelvis 07/27/2020 INDICATION FOR EXAMINATION: 71 years Male Dysuria Requisition states: Previous history of bladder carcinoma. TECHNIQUE: Grayscale and color Doppler technique were utilized to evaluate the retroperitoneum. FINDINGS: KIDNEYS: The right kidney measures 10.0 x 6.1 x 5.4 cm. The left kidney measures 10.4 x 5.3 x 5.1 cm. There is no evidence of hydronephrosis. There is no ultrasonic evidence of solid focal renal masses or other significant renal parenchymal abnormalities. The renal cortices show no evidence of thinning. URINARY BLADDER: There is no ultrasonic evidence of urinary bladder abnormalities. Bilateral ureteral jets are identified. Prevoid volume 330 mL. Post void volume 11 mm. ASSESSMENT: No abnormalities identified of the kidneys or urinary bladder on today's exam. Electronically authenticated by: ALENA SHANNON Date: 2022-11-22 16:50[facility]04-25-2023 History of Present illness Narrative* Blanche Naranjo Ma - 10/21/2022 3:44 PM EDT UNIVERSAL PROTOCOL / SAFETY CHECKLIST Procedure to be Performed: cysto Sign In: A Moment of CARE was completed. Personnel directly involved with the procedure wore the appropriate PPE (Personal Protective Equipment). No special equipment needed. Patient/Surrogate Stated/Verified: PATIENT VERIFIED(optional for EMERGENT procedures): Patient name, Date of , Relevant allergies, and The intended procedure Time Out Communication: Intended patient and procedure match the source documents. Consent documented and matches the intended procedure. No relevant labs, photos, and/or imaging studies were applicable for review. No correct side/site applicable for marking and visibility. No medications required for procedure. Fire risk assessed and interventions discussed. No implant(s) inserted. Sign Out: SIGN OUT (optional for EMERGENT procedures): All specimen containers correctly labeled. All instruments, equipment, possible retained foreign bodies accounted for. Post-procedure follow-up management communicated and Plan of Care Visit completed when applicable. Blanche Naranjo Ma * Nanci Carvajal MD - 10/21/2022 3:36 PM EDT PHYSICIANS NOTE: CYSTOSCOPY PROCEDURE: October 21, 2022 Sign In History and Physical Exam reviewed and is unchanged. Primary Diagnosis: Encounter for follow-up surveillance of bladder cancer (primary encounter diagnosis) History of bladder cancer Informed Consent Discussed: Yes. Risks, benefits, alternatives and personnel discussed with patientwho consents to proceed. Sign in Communication: Completed Time Out: Team Confirms the Correct Patient, Correct Procedure; Cystoscopy, Correct Site and Site Marking (not applicable), Correct Position. Affirmation of Time Out: YES Sign Out: Sign Out Discussion: Completed Prior patient of Dr. 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/p TURBT 12/07/2019 - path benign S/p s/p cystoscopy w/ cysview, bilateral ureteral washings and retrograde pyelography, and bladder and prostatic fossa biopsies on 07/25/2020 - path CIS S/p BCG x6, finishing 10/01/2020 S/p maintenance BCG, finishing 03/05/2021 Last cystoscopy 07/08/2022 CT Urogram 04/2022 - no urothelial lesions, diffuse diverticulosis Details of Procedure: After sterile prep and drape, the flexible cystoscope was placed through the urethra which was examined in its entirety. Urethral stricture: None The entire mucosa was examined. The scope was flexed in the dome of the bladder and used to look atthe bladder in retroverted fashion. Findings: Normal UOs bilaterally No mucosal lesions/papillary tumors Prior resection sites well healed Prostate with +TUR defect Normal urethra The scope was removed with a repeat examination of the prostate and penile urethra done during removal. Plan - urine cytology - HOPS cystoscopy 3 months - consider increased interval if MARK at next scope Nanci Carvajal MD documented in this encounterMount Carmel [facility] System04-25-2023 Nurse Note* Blanche Naranjo Ma - 10/21/2022 3:02 PM EDT Actual procedure/procedure scheduled: Yes Performing provider/scheduled provider: Yes Patient was roomed in: Q9- 08 [place] Extension Agent offered:Patient declines Patient arrived in the room at: 1458 Patient ready for procedure: 1511 The procedure started at ( Time Only): 1538 The procedure ended at: 1540 Was the procedure delayed: Yes: Provider late The patient left the procedure room at: 1548 Blanche Naranjo Ma PRE PROCEDURE ASSESSMENT- Cysto Procedure Indication: Cystoscopy Latex Allergy: No Allergies reviewed and updated. Yes Heart valve replacement: No Joint replacement: Yes Back Office UA otained: yes PROCEDURE PREP-Cysto Patient ID with two(2)identifiers verified by: Blanche Naranjo Ma Pre-Procedure Antibiotics: None taken at home nor prior to procedure Patient Prep: Betadine Scrub to perineum and placement of Sterile Drape. COMPLETED Anesthetic Given:10 cc 2% Lidocaine jelly Blanche Naranjo Ma UNIVERSAL PROTOCOL / SAFETY CHECKLIST Procedure to be performed: Cystoscopy Sign in Communication: Completed Time Out: Team Confirms the Correct Patient, Correct Procedure, Correct Site and Site Marking, Correct Position (if applicable). Sign Out Discussion: Completed Blanche Naranjo Ma POST PROCEDURE NURSE ASSESSMENT Present along with physician during procedure exam. Blanche Naranjo Ma Instruction sheet given and reviewed and patient verbalizes understanding: yes Post Procedure Antibiotic: none Current pain intensity is 0 on a 0-10 pain scale. Blanche Naranjo Ma AMBULATORY PATIENT EDUCATION THE FOLLOWING WAS EVALUATED Motivation To Learn: Interested Family/Significant Other Support: Unable to assess - Family not present Cognitive Ability: Alert/Oriented Method of Instruction: Individual instruction Written instruction - handouts The Following Influencing Factors Were Barriers To This Education Session: None The Following Physical Limitations Were Barriers To This Education Session: None Instruction Provided To: Patient Shipping Technician Present: not applicable Discipline: Nursing Learning Topic: SURVIVAL SKILLS: Symptom Management Patient Evaluation: Verbalizes understanding: Yes Supplemental Material Given: Written Material Instructed By Blanche Naranjo Ma In Department Urology . documented in this encounterMount Carmel [facility] System01-18-2023 Miscellaneous Notes* Telephone Encounter - Nanci Carvajal MD - 07/16/2022 4:23 PM EST July 16, 2022 4:23 PM Called patient to discuss urine cytology results. Discussed results as in epic. Recommended repeat cystoscopy 3 months. All questions answered. Nanci Carvajal MD documented in this encounterMount Carmel Health System01-10-2023 History of Present illness Narrative* Natalee Garcia RN - 07/08/2022 3:22 PM EST UNIVERSAL PROTOCOL / SAFETY CHECKLIST Procedure to be Performed: cysto Sign In: A Moment of CARE was completed. Personnel directly involved with the procedure wore the appropriate PPE (Personal Protective Equipment). Patient/Surrogate Stated/Verified: PATIENT VERIFIED(optional for EMERGENT procedures): Patient name, Date of , Relevant allergies, and The intended procedure Time Out Communication: Intended patient and procedure match the source documents. Consent documented and matches the intended procedure. Sign Out: SIGN OUT (optional for EMERGENT procedures): All specimen containers correctly labeled. Rommel Garcia RN * Nanci Carvajal MD - 07/08/2022 3:06 PM EST PHYSICIANS NOTE: CYSTOSCOPY PROCEDURE: July 08, 2022 Sign In History and Physical Exam reviewed and is unchanged. Primary Diagnosis: No diagnosis found. Informed Consent Discussed: Yes. Risks, benefits, alternatives and personnel discussed with patientwho consents to proceed. Sign in Communication: Completed Time Out: Team Confirms the Correct Patient, Correct Procedure; Cystoscopy, Correct Site and Site Marking (not applicable), Correct Position. Affirmation of Time Out: YES Sign Out: Sign Out Discussion: Completed Prior patient of Dr. 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/p TURBT 12/07/2019 - path benign S/p s/p cystoscopy w/ cysview, bilateral ureteral washings and retrograde pyelography, and bladder and prostatic fossa biopsies on 07/25/2020 - path CIS S/p BCG x6, finishing 10/01/2020 S/p maintenance BCG, finishing 03/05/2021 Last cystoscopy 04/01/2022 CT Urogram 04/2022 - no urothelial lesions, diffuse diverticulosis Details of Procedure: After sterile prep and drape, the flexible cystoscope was placed through the urethra which was examined in its entirety. Urethral stricture: None The entire mucosa was examined. The scope was flexed in the dome of the bladder and used to look atthe bladder in retroverted fashion. Findings: Normal UOs bilaterally Prior resection/biopsy sites well healed No mucosal lesions or papillary tumors Prostate with evidence of prior resection Normal urethra The scope was removed with a repeat examination of the prostate and penile urethra done during removal. Plan - urine cytology - If positive cytology, plan OR for endoscopic evaluation - Discussed bowel findings on CT scan - patient states no bowel symptoms and recent colonoscopy with past 6 months - If negative cytology, cysto 3 months Nanci Carvajal MD documented in this encounterMount Carmel Health System01-10-2023 Nurse Note* Natalee Garcia RN - 07/08/2022 2:44 PM EST Actual procedure/procedure scheduled: Yes Performing provider/scheduled provider: Yes Patient was roomed in: Q9- 05 Patient arrived in the room at: 1430 Patient ready for procedure: 1445 The procedure started at ( Time Only): 1510 The procedure ended at: 1520 Was the procedure delayed: No The patient left the procedure room at: 1525 Rommel Garcia RN PRE PROCEDURE ASSESSMENT- Cysto Procedure Indication: Cystoscopy Latex Allergy: No Allergies reviewed and updated. Yes Pre-Procedure Vital Signs: BP: 132/76 Pulse: 83 Heart valve replacement: No Joint replacement: Yes Back Office UA otained: yes PROCEDURE PREP-Cysto Patient ID with two(2)identifiers verified by: Rommel Garcia RN Pre-Procedure Antibiotics: None taken at home nor prior to procedure Patient Prep: Betadine Scrub to perineum and placement of Sterile Drape. COMPLETED Anesthetic Given:10 cc 2% Lidocaine jelly Rommel Garcia RN UNIVERSAL PROTOCOL / SAFETY CHECKLIST Procedure to be performed: Cystoscopy Sign in Communication: Completed Time Out: Team Confirms the Correct Patient, Correct Procedure, Correct Site and Site Marking, Correct Position (if applicable). Sign Out Discussion: Completed Rommel Garcia RN POST PROCEDURE NURSE ASSESSMENT Present along with physician during procedure exam. Rommel Garcia RN Instruction sheet given and reviewed and patient verbalizes understanding: yes Post Procedure Antibiotic: none Current pain intensity is 0 on a 0-10 pain scale. Rommel Garcia RN AMBULATORY PATIENT EDUCATION THE FOLLOWING WAS EVALUATED Motivation To Learn: Interested Family/Significant Other Support: None - Unavailable/disinterested Cognitive Ability: Alert/Oriented Method of Instruction: Individual instruction The Following Influencing Factors Were Barriers To This Education Session: None The Following Physical Limitations Were Barriers To This Education Session: None Instruction Provided To: Patient Shipping Technician Present: not applicable Discipline: Nursing Learning Topic: SURVIVAL SKILLS: Complication Prevention Patient Evaluation: Verbalizes understanding: Yes Supplemental Material Given: Written Material Instructed By Rommel Garcia RN In Department Urology . documented in this encounterMount Carmel Health System11-23-2022 Evaluation note* Encounter Date Diagnosis Assessment Notes Treatment Notes Treatment Clinical Notes Apr, Esophageal diverticulum (ICD-10 - Q39.6) Apr, Dysphagia (ICD-10 - R13.10) Patient to call if symptoms worsen or return Continue Omeprazole Follow up 1 year [employer] Other 11-17-2022 Miscellaneous Notes* [facility] - Liss Hutton, RT(R) - 05/15/2022 8:00 AM EST Radiology Service Progress Note DATE OF SERVICE: May 15, 2022 TIME: 8:28 AM PATIENT IDENTITY VERIFICATION COMPLETED USING TWO (2) STANDARD IDENTIFIERS: Name and Date of confirmed by patient verbally and Name and Date of confirmed by identification band. FALL SCREENING: Has the patient had 2 falls in the last year or 1 fall with injury or currently using an Ambulatory Assistive Device (Walker, Cane, Wheelchair, Crutches, etc.)? No PATIENT GENDER DATA: Male PATIENT RELEVANT IMPLANT DATA REVIEWED: Not Applicable ALLERGIES: Reviewed and unchanged CONTRAST ALLERGY: NO. EXAM: CT -CONTRAST INDUCED NEPHROPATHY RISK FACTORS: Patient age > 60 years CREATININE: Creatinine Date Value Ref Range Status 07/23/2020 0.93 0.73 - 1.22 mg/dL Final 05/04/2020 0.89 0.73 - 1.22 mg/dL Final 12/05/2019 0.96 0.73 - 1.22 mg/dL Final eGFR-All Other Races Date Value Ref Range Status 07/23/2020 >60 . Final Comment: eGFR (Estimated GFR) Units of measure: mL/min/1.73 meters squared eGFR is derived from the reexpressed MDRD Study equation using the following parameters: serum creatinine, age, gender and race. The creatinine assay has been calibrated to be traceable to IDMS. An eGFR <60 mL/min/1.73m2 for >3 months is consistent with chronic kidney disease. Refer to KDOQI guidelines for clinical interpretation. In patients with unstable renal function, e.g. those with acute kidney injury, the eGFR may not accurately reflect actual GFR. eGFR- Date Value Ref Range Status 07/23/2020 >60 Final P.O.C.T. RESULTS: POC done: Yes, See Lab Tab May 15, 2022 TREATMENT: N/A PERIPHERAL IV DATA: Ambulatory: A peripheral IV was started in the Right with a Angio cath: 20 gauge. RADIOLOGY DEPARTMENT: CT; Exam(s) Completed: Abdomen/Pelvis SIGNATURE: RT Benita(R) PATIENT NAME: Timur Francisco DATE: May 15, 2022 TIME: 8:28 AM documented in this encounterMount Carmel Health System11-04-2022 Miscellaneous Notes* Telephone Encounter - Nanci Carvajal MD - 05/02/2022 10:11 AM EDT May 02, 2022 10:11 AM Called patient and to discuss next steps. Discussed urine cytology suspicious for cancer cells. Discussed unclear site of origin. Discussed considerations including CT urogram now (versus prior to next scope as planned) and consideration of endoscopic evaluation in OR. They would prefer to start with CT scan and repeat cytology. We will help arrange this. All questions answered. documented in this encounterMount Carmel Health System10-24-2022 Miscellaneous Notes* Telephone Encounter - Hallie Matson - 04/21/2022 11:15 AM EDT Spoke to Mrs. Francisco. Pt is experiencing urinary burning and frequency.. Denies fever, chills, nausea, or vomiting. Urine culture ordered. Advised that it takes 2-3 days to receive results. Patient advised to push fluids but cut back 2-3 hours before bedtime to cut down on the amount of time they get up during the night. Suggested OTC AZO for urethral burning. Told them that his urine will turn orange. Advised to go to the nearest ER if he develops fever, chills, nausea, or vomiting. Patient verbalized understanding. All questions answered. Hallie Matson associate director of biostatistics Nurse Department of Urology [facility] documented in this encounterMount Carmel Health System10-04-2022 History of Present illness Narrative* Nanci Carvajal MD - 04/01/2022 3:30 PM EDT PHYSICIANS NOTE: CYSTOSCOPY PROCEDURE: April 01, 2022 Sign In History and Physical Exam reviewed and is unchanged. Primary Diagnosis: Malignant neoplasm of urinary bladder, unspecified site (hcc) History of bladder cancer (primary encounter diagnosis) Informed Consent Discussed: Yes. Risks, benefits, alternatives and personnel discussed with patientwho consents to proceed. Sign in Communication: Completed Time Out: Team Confirms the Correct Patient, Correct Procedure; Cystoscopy, Correct Site and Site Marking (not applicable), Correct Position. Affirmation of Time Out: YES Sign Out: Sign Out Discussion: Completed Prior patient of Dr. 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/p TURBT 12/07/2019 - path benign S/p s/p cystoscopy w/ cysview, bilateral ureteral washings and retrograde pyelography, and bladder and prostatic fossa biopsies on 07/25/2020 - path CIS S/p BCG x6, finishing 10/01/2020 S/p maintenance BCG, finishing 03/05/2021 Last cystoscopy 12/24/2021 Details of Procedure: After sterile prep and drape, the flexible cystoscope was placed through the urethra which was examined in its entirety. Urethral stricture: None The entire mucosa was examined. The scope was flexed in the dome of the bladder and used to look atthe bladder in retroverted fashion. Findings: Prior resection sites noted No new mucosal lesions or papillary tumors noted Normal UOs Prostate with prior evidence of resection Normal urethra The scope was removed with a repeat examination of the prostate and penile urethra done during removal. Plan - urine cytology - CT urogram 3 months - cystoscopy 3 months Nanci Carvajal MD * Ameena Stewart RN - 04/01/2022 3:19 PM EDT UNIVERSAL PROTOCOL / SAFETY CHECKLIST Procedure to be Performed: Cystoscopy Sign In: A Moment of CARE was completed. Personnel directly involved with the procedure wore the appropriate PPE (Personal Protective Equipment). Patient/Surrogate Stated/Verified: PATIENT VERIFIED(optional for EMERGENT procedures): Patient name, Date of , Relevant allergies, and The intended procedure Time Out Communication: Intended patient and procedure match the source documents. Consent documented and matches the intended procedure. No relevant labs, photos, and/or imaging studies were applicable for review. No correct side/site applicable for marking and visibility. Medications required for procedure verified. Fire risk assessed and interventions discussed. No implant(s) inserted. Sign Out: SIGN OUT (optional for EMERGENT procedures): All specimen containers correctly labeled. No instruments, equipment or retained foreign bodies applicable. Post-procedure follow-up management communicated and Plan of Care Visit completed when applicable. Ameena Stewart RN documented in this encounterMount Carmel Health System10-04-2022 Nurse Note* Ameena Stewart RN - 04/01/2022 3:19 PM EDT Actual procedure/procedure scheduled: Yes Performing provider/scheduled provider: Yes Patient was roomed in: Q9- 09 Patient arrived in the room at: 1526 Patient ready for procedure: 1538 The procedure started at ( Time Only): 1544 The procedure ended at: 1546 Was the procedure delayed: No The patient left the procedure room at: 1558 Ameena Stewart RN PRE PROCEDURE ASSESSMENT- Cysto Procedure Indication: Cystoscopy Latex Allergy: No Allergies reviewed and updated. Yes Pre-Procedure Vital Signs: BP: 138/74 Pulse: 73 Heart valve replacement: No Joint replacement: Yes, right hip 7 years ago Back Office UA otained: yes PROCEDURE PREP-Cysto Patient ID with two(2)identifiers verified by: Ameena Stewart RN Pre-Procedure Antibiotics: None taken at home nor prior to procedure Patient Prep: Betadine Scrub to perineum and placement of Sterile Drape. COMPLETED Anesthetic Given:10 cc 2% Lidocaine jelly Ameena Stewart RN UNIVERSAL PROTOCOL / SAFETY CHECKLIST Procedure to be performed: Cystoscopy Sign in Communication: Completed Time Out: Team Confirms the Correct Patient, Correct Procedure, Correct Site and Site Marking, Correct Position (if applicable). Sign Out Discussion: Completed Ameena Stewart RN POST PROCEDURE NURSE ASSESSMENT Present along with physician during procedure exam. Ameena Stewart RN Instruction sheet given and reviewed and patient verbalizes understanding: yes Post Procedure Antibiotic: none Current pain intensity is 0 on a 0-10 pain scale. Ameena Stewart RN AMBULATORY PATIENT EDUCATION THE FOLLOWING WAS EVALUATED Motivation To Learn: Interested Family/Significant Other Support: at bedside Cognitive Ability: Alert/Oriented Method of Instruction: Individual instruction Written instruction - handouts Verbal instruction The Following Influencing Factors Were Barriers To This Education Session: None The Following Physical Limitations Were Barriers To This Education Session: None Instruction Provided To: Patient and Spouse Shipping Technician Present: not applicable Discipline: Nursing Learning Topic: SURVIVAL SKILLS: Symptom Management Patient Evaluation: Verbalizes understanding: Yes Supplemental Material Given: Written Material Instructed By Ameena Stewart RN In Department Urology . documented in this encounter[facility] Evaluation note* Encounter Date Diagnosis Assessment Notes Treatment Notes Treatment Clinical Notes Nov, Esophageal diverticulum (ICD-10 - Q39.6) REASSURANCE IF SYMPTOMS RETURN PT TO CALL FOR ESOPHAGEAL MANOMETRY AND REPEAT EGD WITH DILATION DECREASE AMITRYPTYLINE TO ONCE DAILY F/U HERE 3 MONTHS [employer] Other 05-10-2022 Miscellaneous Notes* Telephone Encounter - Bing Schmitt RN - 11/05/2021 2:17 PM EDT Left a message on the cell voicemail concerning 11/07 appt to Urol nurse. documented in this encounterMount [facility]04-28-2022 History of Present illness Narrative* Eze Carreon RN - 10/24/2021 8:09 AM EDT BLADDER INSTILLATION Patient ID with two (2) identifiers verified by: Eze Carreon RN Allergies reviewed and updated: Yes Medication ordered for bladder instillation: BCG Current pain intensity is: 0 on a 0-10 pain scale. Have you seen any blood in the last 24 hours: No Have you had a temperature greater than 101F in the last 24 hours: No Do you have foul smelling urine or severe burning/urgency that has worsened since the last bladder instillation treatment: No No, Proceed with BCG Any concerns about safety in the home/falls: Not at risk for falls Start Date: 10/24/21 Treatment number: 1 of 3 Retention Time Last RX: 1st treatment Symptoms Post Last RX: 1st treatment Catheter Used: 14 fr. coude BCG instilled at: 0840 Residual TX: Yes 30 cc of clear yellow urine. Return to Clinic on : Next week Patient tolerated treatment well. Eze Carreon RN documented in this encounterMount [facility]03-25-2022 Miscellaneous Notes* Telephone Encounter - Nanci Carvajal MD - 09/20/2021 3:18 PM EDT September 20, 2021 3:24 PM Called patient to discuss options. He has hx of HG-UC with prior BCG treatment. He had prior negative cysto. Urine cytology was suspicious but not definitive for UC. We discussed options of BCG maintenance versus OR endoscopic evaluation. He strongly prefers BCG maintenance at present. We discussedthese options. We will help schedule. All questions answered. Nanci Carvajal MD documented in this encounterMount [facility]06-01-2021 History of Present illness Narrative* ViauEdy MD - 11/27/2020 11:28 AM EDT [facility] [address] ([address]) [facility] [address] [facility] [id number] Timur Francisco is a 69 y.o. male being seen today, 11/27/20, Chief Complaint Patient presents with Follow-up talk about epidural [chief complaint] low back pain HPI Dictation: Has a diagnosis of spinal stenosis degenerative disease L3-4 status post lumbar fusion L4-5 is here to discuss an epidural injection otherwise pain to the is not significant of as its been in addition his insurance is requiring this to be done under image guidance he does not feel at this point his pain is severe enough to warrant an injection also explained to him that his surgical option would be a decompression fusion up to L3-4 and I am not pushing that at this point if he can live with it he should [hpi] Physical Exam Dictation: [PE] increased pain with lumbar extension paraspinal spasm no radicular Assessment and Plan Dictation: [AP] plan return on a as needed basis I have reviewed all relevant histories, medications, allergies, and problem list items with Timur Francisco during this visit. Review of Systems Constitutional: Negative for chills and fever. HENT: Negative for congestion. Respiratory: Negative for shortness of breath. Cardiovascular: Negative for chest pain. Gastrointestinal: Negative for diarrhea, nausea and vomiting. Neurological: Negative for headaches. Psychiatric/Behavioral: Negative for behavioral problems. BP (!) 151/66 Pulse 85 Ht 6' Wt 99.8 kg (220 lb) BMI 29.84 kg/m Imaging: No results found. 1. Spinal stenosis of lumbar region without neurogenic claudication 2. Lumbar degenerative disc disease Return if symptoms worsen or fail to improve. Edy Villalpando MD documented in this [id number] History of Present illness Narrative* Darlene Calderon LPN - 11/09/2020 10:52 AM EDT [facility] ([place]) denied the epidural injection for 11-27-20 due to the lack of use of guidance when performing the injections. I called and informed patient and [facility] () of the denial. I offered to refer patient to pain management physician or have the injection approved to be performed at the hospital instead. Patient declined both at this point but would still like to come in and speak with Dr. Villalpando. documented in this encounterOhioHealthEvaluation note* Diagnosis Spinal stenosis of lumbar region without neurogenic claudication- Primary Lumbar degenerative disc disease [facility]* Diagnosis Right hip pain Pain in joint, pelvic region and thigh documented in this encounter [employer] Phone: evaluation note* Diagnosis Malignant neoplasm of urinary bladder, unspecified site (HCC)- Primary documented in this encounter [facility] note* Diagnosis Viral upper respiratory tract infection with cough Acute upper respiratory infections of unspecified site documented in this encounter [employer] Phone: [email or web address] note* Diagnosis History of bladder cancer- Primary Personal history of malignant neoplasm of bladder Malignant neoplasm of urinary bladder, unspecified site (HCC) documented in this encounter [facility] note* Diagnosis Suspected UTI- Primary documented in this encounter [facility] note* Diagnosis Malignant neoplasm of urinary bladder, unspecified site (HCC)- Primary Abnormal urine cytology Other nonspecific finding on examination of urine documented in this encounter [facility] noteNo assessment information [facility] Work Phone: Evaluation note* Diagnosis Encounter for follow-up surveillance of bladder cancer- Primary Unspecified follow-up examination documented in this encounter [facility] note* Diagnosis Encounter for follow-up surveillance of bladder cancer- Primary Unspecified follow-up examination History of bladder cancer Personal history of malignant neoplasm of bladder documented in this encounter [facility] noteNo InformationNort [employer] Other Evaluation note* Diagnosis Malignant neoplasm of urinary bladder, unspecified site (HCC) History of bladder cancer Personal history of malignant neoplasm of bladder documented in this encounter [facility] note* Diagnosis Onset Date Resolution Status Dysphagia [facility] Work Phone: Evaluation note* Diagnosis Encounter for follow-up surveillance of bladder cancer- Primary Unspecified follow-up examination History of bladder cancer Personal history of malignant neoplasm of bladder documented in this encounter [facility] note* Diagnosis Malignant neoplasm of urinary bladder, unspecified site (HCC) documented in this encounter [facility] note* Diagnosis Pre-operative examination- Primary Unspecified pre-operative examination Traction detachment of right retina Traction detachment of retina Rheumatoid arthritis, involving unspecified site, unspecified whether rheumatoid factor present (HCC) Essential (primary) hypertension Unspecified essential hypertension Gastroesophageal reflux disease, unspecified whether esophagitis present JOHNATHON (obstructive sleep apnea) Obstructive sleep apnea (adult) (pediatric) [facility] Diagnosis Encounter for follow-up surveillance of bladder cancer- Primary Unspecified follow-up examination History of bladder cancer Personal history of malignant neoplasm of bladder documented in this encounter [facility] general Narrative - Reported* Type Description Date Surgical History CHOLECYSTECTOMY Surgical History APPENDECTOMOY Surgical History HERNIA REPAIR [facility] Other Hospital Discharge instructions Additional Instructions DISCHARGE INSTRUCTIONS FOR ENDOSCOPY FOR COLONOSCOPY: -Expect a gassy or full feeling after a colonoscopy. Report any NEW abdominal pain or vomiting. -Watch for rectal bleeding if you have a polyp removed. You may have oozing, but notify the doctor if you pass clots. -Avoid aspirin for 2 days IF a polyp is removed. -It is important to keep your appointments for follow up examinations because polyps can grow back. FOR LACEY/EGD/ERCP/PEG: -Your throat may feel sore today from the scope that the doctor passed through your throat to visualize your stomach. Take a throat lozenge or suck on ice to ease the discomfort. -Do NOT smoke. -You may notice some streaks of blood in your sputum if the doctor has taken a biopsy. Notify the doctor if you cough up large amounts of blood. -Expect a gassy or full feeling after esophagoscopy. Report any persistent pain or vomiting. -Take it easy today. You need not stay in bed, but avoid strenuous activities such as jogging. FOR SEDATION FOR 24 HOURS: -NO driving -Do NOT operate machinery such as power tools, lawn mowers, snow blowers, sewing machines, etc. -Avoid alcoholic beverages and drugs for allergies, nerves, or sleep. -Do NOT stay alone. Do NOT leave your child unattended. -Do NOT make important personal or business decisions or sign any legal documents. -Eat solid foods and drink liquids in smaller amounts than usual until normal appetite returns. If you should experience an upset stomach, liquids high in sugar content (soda, Artemio-aid, non-acid juices) are recommended. -You can resume normal activities tomorrow. FOLLOW UP Please call the office and make a follow up appointment to see me in 8-12 weeks. Soft diet today. Resume normal diet tomorrow. -Notify the doctor if you have any problems. -Office number [phone] Work Phone: Reason for visit NarrativePT HERE AT REQUEST OF DR ROSALINA DE ANDA EVALUATION AND TREATMENT OF ESOPHAGEAL DIVERTICULUM / DYSPHAGIAEfland [employer] [place] [employer] Other Summary Purpose Family History No Family History Records Found Relationship Condition Age at Onset Recorded Date/T marjan Not Specified Cerebrovascular accident (CVA) Unknown brother Cerebrovascular accident (CVA) Unknown Advance Directives No Advanced Directives Records FoundDocuments on File Type Date Recorded Patient Ur Coordinator Expl anation Advance Directives and Livin g Will 02/07/2020 3:27 PM Documents on File Type Date Recorded Patient Ur Coordinator Expl anation ACP-Advance Directive ACP-Power of Negative Stripper Latest Code Status on File Code Status Date Activated Date Inactivated Comments Full Code 04/07/2013 1:10 PM 04/07/2013 6:05 PM Documents on File Type Date Recorded Patient Ur Coordinator Expl anation Advance Directives and Livin g Will 05/08/2020 3:27 PM Documents on File Type Date Recorded Patient Ur Coordinator Expl anation Advance Directives and Living Will 05/14/2020 12:00 AM NOT IN COMPUTER WITH [employer]. Documents on File Type Date Recorded Patient Ur Coordinator Expl anation Advance Directive(s) 07/06/2020 10:16 AM Advance Directive(s) 11/17/2019 12:16 PM Advance Directive(s) 01/19/2019 1:53 PM Advance Directive(s) 01/12/2019 12:10 PM Advance Directive(s) 11/02/2018 11:19 AM Advance Directive(s) 05/14/2018 12:35 PM Advance Directive(s) 05/14/2018 2:34 PM Documents on File Type Date Recorded Patient Ur Coordinator Expl anation Advance Directive(s) 05/14/2018 2:34 PM Documents on File Type Date Recorded Patient Ur Coordinator Expl anation Advance Directive(s) 05/14/2018 2:34 PM Advance Directive Response Recorded Date/ Time Advance Directives No July 02, 2022 2:58pm Advance Directive Response Recorded Date/ Time Advance Directives No July 02, 2022 1:58pm History of Present Illness * Edy Villalpando MD - 02/07/2020 3:55 PM EDT [facility] [address] ([address]) [facility] [address] [facility] [phone] Timur Francisco is a 69 y.o. 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 without improvement has been on [id number] medications without improvement he has had an x-ray which showed fusion at 5 1 with aspinal listhesis 4 on 5 grade 1 with x-rays repeated today showing similar findings [hpi] Physical Exam Dictation: [PE] increased pain with all lumbar motion paraspinal spasm no gross motor signs reflex asymmetry lower extremities x-rays as noted Assessment and Plan Dictation: [AP] symptoms certainly suggestive of spinal stenosis with a grade 1 spinal listhesis 4 on 5 above a previous L5-S1 fusion plan I did recommend meloxicam and physical therapy and if not improved an MRI will be recommended I have reviewed all relevant histories, medications, allergies, and problem list items with Timur Francisco during this visit. Review of Systems Constitutional: Negative for chills and fever. HENT: Negative for congestion. Respiratory: Negative for shortness of breath. Cardiovascular: Negative for chest pain. Gastrointestinal: Negative for diarrhea, nausea and vomiting. Neurological: Negative for headaches. Psychiatric/Behavioral: Negative for behavioral problems. Ht 6' Wt 97.1 kg (214 lb) BMI 29.02 kg/m Imaging: No results found. 1. Spondylolisthesis of lumbar region 2. Back pain, unspecified back location, unspecified back pain laterality, unspecified chronicity Ambulatory referral to Orthopedics Return in about 4 weeks (around 03/06/2020). Edy Villalpando MD documented in this encounter* Cb Cunningham, PT - 02/15/2020 3:00 PM EDT [facility] Outpatient Physical Therapy Evaluation Date: 02/15/2020 Patient: Timur Francisco : 1950 Referring Practitioner: Dr. Edy Villalpando Referral Date : 02/07/20 Diagnosis: Sprain of ligament lumbosacral joint Treatment Diagnosis: Back Pain Onset Date: 02/07/20 PT Insurance Information: BCBS/ Medicare Total # of Visits Approved: 12 Per Physician Order Total # of Visits to Date: 1 Subjective Additional Pertinent Hx: Patient c/o pain in low back that radiates down both legs intermittently. Patient has has chronic back pain over 5 years, slowly worsening, and now radiating down legs. Sit to stand increases pain. Mowing lawn on his riding mower increases pain. Sees chiropractor regularly.Xray- DDD per patient. Hx- 2009 right hip replacemnt, OA, hearing loss, bladder cancer, 06/2001 lumbar surgery with fusion L4-L5. Pain 4-8/10 in back and legs based on activity level. Does sleep fine,laying down relieves pain. Patient c/o difficulty sit to stand from car and limps several steps. Retired. Pain Screening Patient Currently in Pain: Yes Pain Assessment Pain Assessment: 0-10 Pain Level: (varies 4-8/10) Pain Location: Back, Leg Pain Orientation: Right, Left Social/Functional History Lives With: Spouse Type of Home: House Occupation: Retired Objective Spine Lumbar: flexion 25% limited, extension 75% limited, sidebend 25% limited, rotation 25% limited Joint Mobility Spine: thoracic kyphosis and very stiff mid thoracic area Strength RLE Strength RLE: WFL Strength LLE Strength LLE: WFL PROM LLE (degrees) LLE PROM: WFL PROM RLE (degrees) RLE PROM: Exceptions R Hip Extension 0-10: 0 R Hip External Rotation 0-45: limited 50% Additional Measures Special Tests: SLR- negative Ambulation 1 Device: No Device Quality of Gait: intermittent limp/ when first gets up per patient Assessment Body structures, Functions, Activity limitations: Decreased functional mobility , Decreased ROM, Increased pain, Decreased posture Assessment: Patient has chronic back pain that has worsened and is now radiating down legs. Patienthas decreased posture and stenosis symptoms. Educated patient on and issued HEP handout. Plan for therex, back and posture education, HEP, manual therapy. Prognosis: Good Decision Making: Medium Complexity History: as above Exam: Oswestry Clinical Presentation: Evolving The Following Comorbities will impact the patient s progression and Plan of Care: Previous Orthopedic Injury/Surgery Education: On POC and HEP handout Goals Short term goals Time Frame for Short term goals: 8 Short term goal 1: Patient to be independent with HEP Short term goal 2: Decrease pain back and legs 4/10 at worst x3 days Short term goal 3: Patient to demonstrate understanding of proper posture and lifting following back education watermelon inspector goals Time Frame for MCFP goals : 12 watermelon inspector goal 1: Decrease pain back and legs 2/10 at worst x3 days watermelon inspector goal 2: Improve functional mobility with Oswestry score < 8/45 Patient's Goal: Be rid of back pain Timed Code Treatment Minutes: 15 Minutes Total Treatment Time: 45 Time In: 15:05 Time Out: 15:50 Cb Cunningham PT Date: 02/15/2020 documented in this encounter* Linda Gardner - 02/21/2020 9:45 AM EDT [facility] Outpatient Physical Therapy Daily Note Date: 02/21/2020 Patient Name: Timur Francisco : 1950 (69 y.o.) Referring Practitioner: Dr. Edy Villalpando Referral Date : 02/07/20 Diagnosis: Sprain of ligament lumbosacral joint Treatment Diagnosis: Back Pain Onset Date: 02/07/20 PT Insurance Information: BCBS/ Medicare Total # of Visits Approved: 12 Per Physician Order Total # of Visits to Date: 2 No Show: 0 Canceled Appointment: 0 Plan of Care/Certification Expiration Date: 03/28/20 Pre-Treatment Pain: 9/10 Assessment Assessment: Pt reports he tried to start of piece of equipment end of last week with severe pain since 03/08. He reports he has been performing his stretches. Performed ex for core strengthening and flexibility followed by manual therapy for spine mobility. Will progress ex and body mechanics as monica. Chart Reviewed: Yes Plan Plan: Plan of care initiated Exercises/Modalities/Manual: See DocFlow Sheet Education: heat , ice hydration Goals (Total # of Visits to Date: 2) Short Term Goals - Time Frame for Short term goals: 8 Short term goal 1: Patient to be independent with HEP-met Short term goal 2: Decrease pain back and legs 4/10 at worst x3 days Short term goal 3: Patient to demonstrate understanding of proper posture and lifting following back education Prison Goals - Time Frame for watermelon inspector goals : 12 MCFP goal 1: Decrease pain back and legs 2/10 at worst x3 days MCFP goal 2: Improve functional mobility with Oswestry score < 8/45 Post Treatment Pain: 6/10 Time In: 0945 Time Out : 1020 Timed Code Treatment Minutes: 35 Minutes Total Treatment Time: 35 Minutes Linda Gardner ARMORED CABLE MACHINE OPERATOR Date: 02/21/2020 documented in this encounter* Linda Gardner - 02/23/2020 9:45 AM EDT [facility] Outpatient Physical Therapy Daily Note Date: 02/23/2020 Patient Name: Timur Francisco : 1950 (69 y.o.) Referring Practitioner: Dr. Edy Villalpando Referral Date : 02/07/20 Diagnosis: Sprain of ligament lumbosacral joint Treatment Diagnosis: Back Pain Onset Date: 02/07/20 PT Insurance Information: BCBS/ Medicare Total # of Visits Approved: 12 Per Physician Order Total # of Visits to Date: 3 No Show: 0 Canceled Appointment: 0 Plan of Care/Certification Expiration Date: 03/28/20 Pre-Treatment Pain: 4-5/10 Assessment Assessment: Pt saw chiropractor after last visit. Less pain 4-5/10. He has been active but less strenuous . Performed ex as outlined for flexibility and core strengthening followed by manual therapy for joint mobility. Will add lifting education with crate. Chart Reviewed: Yes Plan Plan: Continue with current plan Exercises/Modalities/Manual: See DocFlow Sheet Goals (Total # of Visits to Date: 3) Short Term Goals - Time Frame for Short term goals: 8 Short term goal 1: Patient to be independent with HEP-met Short term goal 2: Decrease pain back and legs 4/10 at worst x3 days Short term goal 3: Patient to demonstrate understanding of proper posture and lifting following back education Associate Professor Of Theatre Goals - Time Frame for MCFP goals : 12 MCFP goal 1: Decrease pain back and legs 2/10 at worst x3 days MCFP goal 2: Improve functional mobility with Oswestry score < 8/45 Post Treatment Pain: 4/10 Time In: 0940 Time Out : 1015 Timed Code Treatment Minutes: 35 Minutes Total Treatment Time: 35 Minutes Linda Gardner ARMORED CABLE MACHINE OPERATOR Date: 02/23/2020 documented in this encounter* Linda Gardner - 02/28/2020 9:45 AM EDT [facility] Outpatient Physical Therapy Daily Note Date: 02/28/2020 Patient Name: Timur Francisco : 1950 (69 y.o.) Referring Practitioner: Dr. Edy Villalpando Referral Date : 02/07/20 Diagnosis: Sprain of ligament lumbosacral joint Treatment Diagnosis: Back Pain Onset Date: 02/07/20 PT Insurance Information: BCBS/ Medicare Total # of Visits Approved: 12 Per Physician Order Total # of Visits to Date: 4 No Show: 0 Canceled Appointment: 0 Plan of Care/Certification Expiration Date: 03/28/20 Pre-Treatment Pain: 10/10 Assessment Assessment: Pt reports pain 10/10 x 3 days. He reports numbness in both legs. Pt present very rigidand guarded with movement. He reports pain with sleeping, side sleeps with pillow between knees. Noknown cause of increased pain. Performed ex as outlined for flexibility and manual therapy for spine mobility. No improvement in symptoms after session. Will monitor. Chart Reviewed: Yes Plan Plan: Continue with current plan Exercises/Modalities/Manual: See DocFlow Sheet Goals (Total # of Visits to Date: 4) Short Term Goals - Time Frame for Short term goals: 8 Short term goal 1: Patient to be independent with HEP-met Short term goal 2: Decrease pain back and legs 4/10 at worst x3 days Short term goal 3: Patient to demonstrate understanding of proper posture and lifting following back education Associate Professor Of Theatre Goals - Time Frame for watermelon inspector goals : 12 watermelon inspector goal 1: Decrease pain back and legs 2/10 at worst x3 days MCFP goal 2: Improve functional mobility with Oswestry score < 8/45 Post Treatment Pain: 10/10 Time In: 0945 Time Out : 1025 Timed Code Treatment Minutes: 40 Minutes Total Treatment Time: 40 Minutes Linda Gardner ARMORED CABLE MACHINE OPERATOR Date: 02/28/2020 documented in this encounter* Linda Gardner - 03/02/2020 10:30 AM EDT [facility] Outpatient Physical Therapy Daily Note Date: 03/02/2020 Patient Name: Timur Francisco : 1950 (69 y.o.) Referring Practitioner: Dr. Edy Villalpando Referral Date : 02/07/20 Diagnosis: Sprain of ligament lumbosacral joint Treatment Diagnosis: Back Pain Onset Date: 02/07/20 PT Insurance Information: BCBS/ Medicare Total # of Visits Approved: 12 Per Physician Order Total # of Visits to Date: 5 No Show: 0 Canceled Appointment: 0 Plan of Care/Certification Expiration Date: 03/28/20 Pre-Treatment Pain: 6/10 Assessment Assessment: Pt has been to chiropractor twice since last visit which has decreased pain. He reportshe gets a few days of relief with chiropractor. Pain 6/10 today. Performed ex for flexibility and core strengthening followed by manual therapy for thoracic-lumbar mobility. Will monitor x 1 more week and determine need for/benefit of cont PT. Chart Reviewed: Yes Plan Plan: Continue with current plan Exercises/Modalities/Manual: See DocFlow Sheet Goals (Total # of Visits to Date: 5) Short Term Goals - Time Frame for Short term goals: 8 Short term goal 1: Patient to be independent with HEP-met Short term goal 2: Decrease pain back and legs 4/10 at worst x3 days Short term goal 3: Patient to demonstrate understanding of proper posture and lifting following back education Prison Goals - Time Frame for [facility] goals : 12 watermelon inspector goal 1: Decrease pain back and legs 2/10 at worst x3 days watermelon inspector goal 2: Improve functional mobility with Oswestry score < 8/45 Post Treatment Pain: 6/10 Time In: 1030 Time Out : 1110 Timed Code Treatment Minutes: 40 Minutes Total Treatment Time: 40 Minutes Linda Gardner ARMORED CABLE MACHINE OPERATOR Date: 03/02/2020 documented in this encounter* Linda Gardner - 03/07/2020 9:45 AM EDT [facility] Outpatient Physical Therapy Daily Note Date: 03/07/2020 Patient Name: Timur Francisco : 1950 (69 y.o.) Referring Practitioner: Dr. Edy Villalpando Referral Date : 02/07/20 Diagnosis: Sprain of ligament lumbosacral joint Treatment Diagnosis: Back Pain Onset Date: 02/07/20 PT Insurance Information: BCBS/ Medicare Total # of Visits Approved: 12 Per Physician Order Total # of Visits to Date: 6 No Show: 0 Canceled Appointment: 0 Plan of Care/Certification Expiration Date: 03/28/20 Pre-Treatment Pain: 5/10 Assessment Assessment: Pt reports he only gets relief with chiropractor which lasts 1 day or less. He went yesterday, pain 5/10 today. He continues with activities where he is on a creeper on the ground etc. Performed body former training with crate with good body mechanics noted after education, pt states he is unable to perform good body mechanics with some of his heavy activites he performs. Plan to cont x 2 visits. Chart Reviewed: Yes Plan Plan: Continue with current plan Exercises/Modalities/Manual: See DocFlow Sheet Goals (Total # of Visits to Date: 6) Short Term Goals - Time Frame for Short term goals: 8 Short term goal 1: Patient to be independent with HEP-met Short term goal 2: Decrease pain back and legs 4/10 at worst x3 days Short term goal 3: Patient to demonstrate understanding of proper posture and lifting following back education-met Associate Professor Of Theatre Goals - Time Frame for [facility] goals : 12 [facility] goal 1: Decrease pain back and legs 2/10 at worst x3 days watermelon inspector goal 2: Improve functional mobility with Oswestry score < 8/45 Post Treatment Pain: 5/10 Time In: 0945 Time Out : 1025 Timed Code Treatment Minutes: 40 Minutes Total Treatment Time: 40 Minutes Linda Gardner ARMORED CABLE MACHINE OPERATOR Date: 03/07/2020 documented in this encounter* Cb Cunningham, PT - 03/09/2020 9:45 AM EDT [facility] Outpatient Physical Therapy Daily Note Date: 03/09/2020 Patient Name: Timur Francisco : 1950 (69 y.o.) Referring Practitioner: Dr. Edy Villalpando Referral Date : 02/07/20 Diagnosis: Sprain of ligament lumbosacral joint Treatment Diagnosis: Back Pain Onset Date: 02/07/20 PT Insurance Information: BCBS/ Medicare Total # of Visits Approved: 12 Per Physician Order Total # of Visits to Date: 7 Plan of Care/Certification Expiration Date: 03/28/20 Pre-Treatment Pain: 5/10 Assessment Assessment: Patient reports this is a good day , pain 5/10 in back, legs feel fine today. Completed therex and manual therapy per Doc Flow. Reviewed proper posture and back education. Patient demonstrates understanding. Post session pain increased to 6/10. Chart Reviewed: Yes Plan Plan: Continue with current plan Exercises/Modalities/Manual: See DocFlow Sheet Education: Goals (Total # of Visits to Date: 7) Short Term Goals - Time Frame for Short term goals: 8 Short term goal 1: Patient to be independent with HEP-met Short term goal 2: Decrease pain back and legs 4/10 at worst x3 days-Not Met Short term goal 3: Patient to demonstrate understanding of proper posture and lifting following back education-met Prison Goals - Time Frame for [facility] goals : 12 watermelon inspector goal 1: Decrease pain back and legs 2/10 at worst x3 days [facility] goal 2: Improve functional mobility with Oswestry score < 8/45 Post Treatment Pain: 6/10 Time In: 9:48 Time Out : 10:28 Timed Code Treatment Minutes: 40 Minutes Total Treatment Time: 40 Minutes Cb Cunningham, PT Date: 03/09/2020 documented in this encounter* Cb Cunningham, PT - 03/14/2020 9:45 AM EDT [facility] Outpatient Physical Therapy Daily Note Date: 03/14/2020 Patient Name: Timur Francisco : 1950 (69 y.o.) Referring Practitioner: Dr. Edy Villalpando Referral Date : 02/07/20 Diagnosis: Sprain of ligament lumbosacral joint Treatment Diagnosis: Back Pain Onset Date: 02/07/20 PT Insurance Information: BCBS/ Medicare Total # of Visits Approved: 12 Per Physician Order Total # of Visits to Date: 8 Plan of Care/Certification Expiration Date: 03/28/20 Pre-Treatment Pain: 10/10 Assessment Assessment: Patient walking into PT with antalgic gait. Patient reports pain 10/10 in back ever since yesterday at [facility] for medical appointment. He reports he was inclined in chair/ bed and when he was being leaned backward, he had sharp, stabbing pain in his back that has not let up. Completed therex and manual per Doc Flow, with decrease in therex verse last appointment. Pain still 10/10 at end of session. Patient advised to use ice/ cold pack and rest, if pain doesn't let off in a day, he should call his Dr. Chart Reviewed: Yes Plan Plan: Continue with current plan Exercises/Modalities/Manual: See DocFlow Sheet Education: Goals (Total # of Visits to Date: 8) Short Term Goals - Time Frame for Short term goals: 8 Short term goal 1: Patient to be independent with HEP-met Short term goal 2: Decrease pain back and legs 4/10 at worst x3 days-Not Met Short term goal 3: Patient to demonstrate understanding of proper posture and lifting following back education-met Prison Goals - Time Frame for [facility] goals : 12 [facility] goal 1: Decrease pain back and legs 2/10 at worst x3 days [facility] goal 2: Improve functional mobility with Oswestry score < 8/45 Post Treatment Pain: 10/10 Time In: 9:45 Time Out : 10:15 Timed Code Treatment Minutes: 30 Minutes Total Treatment Time: 30 Minutes Cb Cunningham, PT Date: 03/14/2020 documented in this encounter* Linda Breaux - 03/16/2020 9:45 AM EDT [facility] Date: 03/16/2020 Patient Name: Timur Francisco : 1950 Pt Cancelled Appt due to no reason. Linda Breaux Date: 03/16/2020 documented in this encounter* Edy Villalpando MD - 05/15/2020 1:39 PM EST [facility] [address] ([address]) [facility] [address] [facility] [phone] Timur Francisco is a 69 y.o. male being seen today, 05/15/20, Chief Complaint Patient presents with Back Pain Chief complaint right leg buttock pain radiation left leg pain to the knee HPI Dictation: Pain returns for an epidural steroid injection with MRI showing postsurgical changesL5-S1 with a broad-based disc bulge with moderate stenosis at the 3 4 level focal left paracentral 4 5 broad-based disc bulge with mild stenosis and degenerative disc disease with a grade 1 spinal listhesis L4 on 5 today for an epidural injection Physical Exam Dictation: Lamination unchanged increased pain all lumbar motion paraspinal spasm Assessment and Plan Dictation: Diagnosis is noted plan epidural injection standard caudal approach will see him back in 2 weeks ifnot improved otherwise 3 months I have reviewed all relevant histories, medications, allergies, and problem list items with Timur Francisco during this visit. Review of Systems Constitutional: Negative for chills and fever. HENT: Negative for congestion. Respiratory: Negative for shortness of breath. Cardiovascular: Negative for chest pain. Gastrointestinal: Negative for diarrhea, nausea and vomiting. Neurological: Negative for headaches. Psychiatric/Behavioral: Negative for behavioral problems. There were no vitals taken for this visit. Imaging: Xr Lumbar Spine Standard With Flex/ext 4+ Views Result Date: 05/14/2020 EXAMINATION: XR LUMBAR SPINE STANDARD WITH FLEX/EXT 4+ VIEWS 05/14/2020 11:01 am HISTORY: ORDERING SYSTEM PROVIDED HISTORY: pain, TECHNOLOGIST PROVIDED HISTORY: Illness/Other Reason for exam: chroniclower back pain x 2 years Cancer History: UN Surgery, RadiationHistory: UN Encounter Type: Initial Additional signs and symptoms: no known injury ORDERING SYSTEM PROVIDED DIAGNOSIS CODES: R52 Pain COM PARISON: 02/07/2020 FINDINGS: BONES: Stable posterior decompression bilateral transpedicular fusionL5-S1. Neutral projection demonstrates 4.5 mm anterolisthesis of L4 in relation L5, this is stable with flexion and reduces to 2 mm with extension. Answ-qp-oiotlweo degenerative spondylosis and facet osteoarthropathy. DISC SPACES: Multilevel disc space narrowing. Near disc collapse with endplate sclerosis L2-L3. Intervertebral spacer L5-S1 PARASPINOUS:No paraspinous abnormality is seen. OTHER: Negative. Moderate degenerative changes 4.5 mm anterolisthesis L4 in relation L5 with mild dynamic instability identified during extension Workstation ID: [id number] 1. Spondylolisthesis of lumbar region 2. Lumbar degenerative disc disease Return in about 2 weeks (around 05/29/2020). Edy Villalpando MD documented in this encounter* Edy Villalpando MD - 08/15/2020 11:13 AM EST Associated Order(s): Epidural Injection Post-Procedure Diagnose(s): Spondylolisthesis of lumbar region; Spinal stenosis of lumbar region without neurogenic claudication; Lumbar degenerative disc disease Epidural Injection Performed by: Edy Villalpando MD Authorized by: Edy Villalpando MD Medications: 120 mg triamcinolone acetonide 40 mg/mL Anesthetic used: Lidocaine 1% PF * Edy Villalpando MD - 08/15/2020 11:13 AM EST PROCEDURE NOTE Name: Timur Francisco Date of Procedure: @DATE@ Surgeon: Edy Villalpando MD Procedure Performed: Caudal Epidural Steroid Injection Procedure Diagnosis: 1. Spondylolisthesis of lumbar region 2. Spinal stenosis of lumbar region without neurogenic claudication 3. Lumbar degenerative disc disease This procedure is being done for therapeutic purposes. INDICATIONS FOR PROCEDURE: The patient agrees to the procedure after risks and benefits were discussed and questions were answered. The patient has failed other treatment modalities prior to the procedure. These modalities include, but are not limited to, medication trials, physical therapy, and other modalities of pain management. Subsequent procedures are only performed if the patient continuesto have pain or symptomology that warrants the procedure. DESCRIPTION OF PROCEDURE: The patient was taken to the examination room and informed consent was obtained. The patient was placed on the table in prone position. The patient's skin was prepped and draped in standard surgical fashion with Betadine. Skin was anesthetized using 1% preservative free lidocaine. An 22 gauge spinal needle was inserted in caudal space lumbar spine . After placement confirmed , a total of 120 MG of Kenalog was injected without any complications. The needle was withdrawnintact. The patient tolerated the procedure well and was subsequently discharged in stable condition without sequela. Procedure/Injection verified with Time Out Yes Procedures * Edy Villalpando MD - 08/15/2020 11:11 AM EST [facility] [address] ([address]) [facility] [address] [facility] [phone] Timur Francisco is a 69 y.o. male being seen today, 08/15/20, Chief Complaint Patient presents with Back Pain [chief complaint] low back pain radiation left lower extremity HPI Dictation: [hpi] returns on epidural injection with MRI again showing postsurgical changes L5-S1 broad-based disc bulge with moderate stenosis at 3 4 with a left paracentral broad-based disc bulge at 4 5 with mild stenosis grade 1 spinal listhesis 4 on 5 should be noted he has pain in his left leg nondermatomal rating to the knee no pain down his right leg morteza options continue with epidural injection for pain control versus surgical intervention he like to continue with epidural injections at least for the time being Physical Exam Dictation: [PE] increased pain with all lumbar motion paraspinal spasm no true radicular component Assessment and Plan Dictation: [AP] gnosis noted plan epidural injection standard caudal approach will see him in 3 months or as needed I have reviewed all relevant histories, medications, allergies, and problem list items with Timur Francisco during this visit. Review of Systems Constitutional: Negative for chills and fever. HENT: Negative for congestion. Respiratory: Negative for shortness of breath. Cardiovascular: Negative for chest pain. Gastrointestinal: Negative for diarrhea, nausea and vomiting. Neurological: Negative for headaches. Psychiatric/Behavioral: Negative for behavioral problems. Ht 6' Wt 99.8 kg (220 lb) BMI 29.84 kg/m Imaging: No results found. 1. Spondylolisthesis of lumbar region 2. Spinal stenosis of lumbar region without neurogenic claudication 3. Lumbar degenerative disc disease Return in about 3 months (around 11/12/2020). Edy Villalpando MD documented in this encounter* Edy Villalpando MD - 05/14/2020 11:26 AM EST [facility] [address] ([address]) [facility] [address] [facility] [phone] Timur Francisco is a 69 y.o. male being seen today, 05/14/20, Chief Complaint Patient presents with Lower Back - Pain Middle Back - Pain Imaging Results MRI Chief complaint low back pain radiation right leg buttock and left leg to the knee HPI Dictation: This man returns for reevaluation status post MRI with postsurgical changes L5-S1 with a broad-based disc bulge moderate stenosis L3-4 bulge more focal left paracentral 4 5 broad-baseddisc bulge with mild stenosis degenerative disc disease 2334 at least there is a grade 1 slip at 4 5 which is below spine on MRI of that reason flexion-extension films were obtained is difficult to see significant movement on these x-rays Physical Exam Dictation: More lower back pain and leg pain leg pain unchanged no symptoms consistent with a left L4 radiculopathy Assessment and Plan Dictation: Impression degenerative changes with various levels of foraminal andcentral stenosis is noted plan I am recommending further conservative treatment in an epidural steroid injection request authorization through his insurance carrier I have reviewed all relevant histories, medications, allergies, and problem list items with Timur Faina Francisco during this visit. Review of Systems Constitutional: Negative for chills and fever. HENT: Negative for congestion. Respiratory: Negative for shortness of breath. Cardiovascular: Negative for chest pain. Gastrointestinal: Negative for diarrhea, nausea and vomiting. Neurological: Negative for headaches. Psychiatric/Behavioral: Negative for behavioral problems. BP 122/74 (BP Location: Right arm, Patient Position: Sitting) Pulse 66 Ht 6' Wt 99.8 kg (220 lb) BMI 29.84 kg/m Imaging: No results found. 1. Spondylolisthesis of lumbar region 2. Lumbar degenerative disc disease Return in about 1 week (around 05/21/2020), or if symptoms worsen or fail to improve. Edy Villalpando MD documented in this encounter* Darlene Calderon LPN - 05/14/2020 11:45 AM EST Per [place] no prior [place] [address] REF#[id number]. documented in this encounter Assessments Diagnosis Back pain, unspecified back location, unspecified back pain laterality, unspecified chronicity Spondylolisthesis of lumbar region Diagnosis Pain Generalized pain Diagnosis Spondylolisthesis of lumbar region Back pain, unspecified back location, unspecified back pain laterality, unspecified chronicity Diagnosis Spondylolisthesis of lumbar region- Primary Lumbar degenerative disc disease Diagnosis Spondylolisthesis of lumbar region- Primary Spinal stenosis of lumbar region without neurogenic claudication Lumbar degenerative disc disease Diagnosis Spondylolisthesis of lumbar region- Primary Lumbar degenerative disc disease Reason for Referral Status Reason Specialty Diagnoses / Procedures Referre d By Contact Referred To Contact Closed Radiology Diagnoses Spondylolisthesis of lumbar region Back pain, unspecified back location, unspecified back pain laterality, unspecified chronicity Procedures MR Lumbar Spine Without Contrast Edy Villalpando MD [address] [place] [id number] Specialty Diagnoses / Procedures Referred By Contac t Referred To Contact CT IMAGING Diagnoses Malignant neoplasm of urinary bladder, unspecified site (HCC) History of bladder cancer Procedures CT UROGRAM WO/W IVCON CT ABD & PELVIS W/O CONTRST 1+ BODY Nanci Dyer MD [address] [facility] [place] [address] Ct Imaging Referral ID Status Reason Start Date Expiration Date Visits Requested Visits Authorized [id number] Authorized Auto-Generat ed Referral 07/04/2022 05/03/2023 1 1 Specialty Diagnoses / Procedures Referred By Contac t Referred To Contact CT IMAGING Diagnoses Malignant neoplasm of urinary bladder, unspecified site (HCC) Procedures CT UROGRAM WO/W IVCON CT ABD & PELVIS W/O CONTRST 1+ BODY Nanci Dyer MD [address] [facility] [place] [id number] Ct Imaging Referral ID Status Reason Start Date Expiration Date Visits Requested Visits Authorized [id number] Pending Review Auto-Generat ed Referral 05/02/2022 06/01/2023 1 1 Specialty Diagnoses / Procedures Referred By Contac t Referred To Contact CT IMAGING Diagnoses Malignant neoplasm of urinary bladder, unspecified site (HCC) History of bladder cancer Procedures CT UROGRAM WO/W IVCON CT ABD & PELVIS W/O CONTRST 1+ BODY Nanci Dyer MD [address] [id number] Imaging [place] [address] Referral ID Status Reason Start Date Expiration Date V isits Requested Visits Authorized [id number] Closed Auto-Generate d Referral 07/04/2022 05/03/2023 1 1 Specialty Diagnoses / Procedures Referred By Contac t Referred To Contact CT IMAGING Diagnoses Malignant neoplasm of urinary bladder, unspecified site (HCC) Procedures CT UROGRAM WO/W IVCON CT ABD & PELVIS W/O CONTRST 1+ BODY Nanci Dyer MD [address] [place] [address] Ct Imaging [facility] Referral ID Status Reason Start Date Expiration Date V isits Requested Visits Authorized [id number] Closed Auto-Generate d Referral 05/28/2023 02/19/2024 1 1 Medications Administered Section Inactive Administered Medications - up to 3 most recent administrations Medication Order MAR Action Action Date Dose Rate Site bcg 50 mg in NaCl 0.9% 50 mL 50 mg, INTRAVESICAL, ONCE, 1 dose, On Laila 10/24/21 at 0830, Instill into bladder via catheter and retain for 120 minutes, followed by bladder drainage Hazardous Chemotherapy Drug: Use appropriate PPE. Protect from Light., AMB MED ORDERS Given 10/24/2021 8:40 AM EDT 50 mg Other lidocaine urojet 2 % 11 mL topical gel (XYLOCAINE, GLYDO) 11 mL, OTHER, ONCE, 1 dose, On Laila 10/24/21 at 0830, FOR EXTERNAL USE ONLY Intravesical administration, AMB MED ORDERS Given 10/24/2021 8:38 AM EDT 11 mL Oth er Inactive Administered Medications - up to 3 most recent administrations Medication Order MAR Action Action Date Dose Rate Site lidocaine urojet 2 % 11 mL topical gel (XYLOCAINE, GLYDO) 11 mL, URETHRAL, ONCE (UP TO 30 DAYS AMB), 1 dose, On Thu07/08/22 at 1330, FOR EXTERNAL USE ONLY APPLY TO: urethra for cystoscopy Given 07/08/2022 3:02 PM EST 11 mL Inactive Administered Medications - up to 3 most recent administrations Medication Order MAR Action Action Date Dose Rate Site lidocaine urojet 2 % 11 mL topical gel (GLYDO) 11 mL, URETHRAL, ONCE (UP TO 30 DAYS AMB), 1 dose, On Thu10/21/22 at 1330, FOR EXTERNAL USE ONLY APPLY TO: urethra for cystoscopy Given 10/21/2022 3:10 PM EDT 11 mL Inactive Administered Medications - up to 3 most recent administrations Medication Order MAR Action Action Date Dose Rate Site lidocaine urojet 2 % 11 mL topical gel (GLYDO) 11 mL, URETHRAL, ONCE (UP TO 30 DAYS AMB), 1 dose, On Thu06/02/23 at 1130, FOR EXTERNAL USE ONLY APPLY TO: urethra for cystoscopy Given 06/02/2023 1:20 PM EST 11 mL Chief Complaint and Reason for Visit Chief Complaint R76.0 M06.4 NSAIDs u se M05.79 Z11.59 Chief Complaint R76.0 M06.4 NSAIDs u se M05.79 Z11.59 M05.79 Z79.899 Chief Complaint R76.0 M06.4 NSAIDs u se M05.79 Z11.59 M05.79 Z79.899 A79.899 M05.79 Chief Complaint M05.79 Z11.59 M05.79 Z79.899 A79.899 M05.79 M05.79 Z79.899 Chief Complaint M05.79 Z79.899 M05.79 Z79.899 Dysphagia Reason for Visit Dysphagia Chief Complaint M05.79 Z79.899 Dysphagia Reason for Visit Dysphagia Chief Complaint Dysphagia M05.79 z79.899 Additional Source Comments (unrecognized sect ion and content) No Status Records FoundNo Status Records FoundNo Status Records FoundNo Status Records FoundNo Status Records FoundNo Status Records FoundNo Status Records FoundNo Status Records FoundNo Status Records Found INFORMATION SOURCE (unrecogn ized section and content) DATE CREATED AUTHOR 12/08/2019 [facility] DATE CREATED AUTHOR AUTHOR'S ORGANIZ ATION 05/15/2020 [facility] DATE CREATED AUTHOR AUTHOR'S ORGANIZ ATION 11/14/2021 [facility] DATE CREATED AUTHOR AUTHOR'S ORGANIZ ATION 05/18/2022 [facility] DATE CREATED AUTHOR AUTHOR'S ORGANIZ ATION 12/05/2022 [facility] DATE CREATED AUTHOR AUTHOR'S ORGANIZ ATION 09/25/2023 [facility] dical [facility] DATE CREATED AUTHOR AUTHOR'S ORGANIZ ATION 10/21/2023 [facility] DATE CREATED AUTHOR AUTHOR'S ORGANIZ ATION 11/08/2023 [facility] DATE CREATED AUTHOR AUTHOR'S ORGANIZ ATION 12/02/2023 [facility] Reason for Visit (unrecogniz ed section and content) Reason Comments Pain Status Reason Specialty Diagnoses / Procedures Referred By Contact Referred To Contact Closed Orthopedic Surgery Diagnoses Back pain, unspecified back location, unspecified back pain laterality, unspecified chronicity Isauro Poe MD [address] [place] [address] Edy Villalpando MD [address] [place] [id number] Status Reason Specialty Diagnoses / Procedures Referre d By Contact Referred To Contact Closed Radiology Diagnoses Spondylolisthesis of lumbar region Back pain, unspecified back location, unspecified back pain laterality, unspecified chronicity Procedures MR Lumbar Spine Without Contrast Edy Villalpando MD [address] [place] [id number] Reason Comments Back Pain Reason Comments Imaging Results MRI Pain Reason Comments Follow-up talk about epidural Reason Comments Manager Agency - Other Reason Comments Malignant neoplasm of urinary bladder, u nspecified site (HCC Reason Comments Appointment Cancelled Reason Comments Returning Patient's Call Reason Comments Manager Agency - Other Reason Comments Results Specialty Diagnoses / Procedures Referred By Contac t Referred To Contact CT IMAGING Diagnoses Malignant neoplasm of urinary bladder, unspecified site (HCC) History of bladder cancer Procedures CT UROGRAM WO/W IVCON CT ABD & PELVIS W/O CONTRST 1+ BODY Nanci Dyer MD [address] [place] [address] Ct Imaging [place] [address] Referral ID Status Reason Start Date Expiration Date V isits Requested Visits Authorized [id number] Closed Auto-Generate d Referral 07/04/2022 05/03/2023 [address] Specialty Diagnoses / Procedures Referred By Contac t Referred To Contact CT IMAGING Diagnoses Malignant neoplasm of urinary bladder, unspecified site (HCC) Procedures CT UROGRAM WO/W IVCON CT ABD & PELVIS W/O CONTRST 1+ BODY Nanci Dyer MD [address] [place] [address] [place] [address] Referral ID Status Reason Start Date Expiration Date V isits Requested Visits Authorized [id number] Closed Auto-Generate d Referral 05/28/2023 02/19/2024 1 1 Reason Comments Perioperative Medical Evaluation H33.41 Reason Comments Cystoscopy-1 Care Teams (unrecognized sec tion and content) Emergency Medical Technician Basic Relationship Specialty Start Date End Date Isauro Poe MD [address] [place] [address] PCP - General 06/16/12 Emergency Medical Technician Basic Relationship Specialty Start Date End Date Isauro Poe [address] [place] [address] (Fax) PCP - General Family Practice 11/04/18 Wai Matson Jr. [address] [place] [address] Referring Urology 04/23/18 Emergency Medical Technician Basic Relationship Specialty Start Date End Date Isauro Poe [address] [place] [address] (Fax) PCP - General Family Practice 11/04/18 Wai Matson Jr. [address] [place] [address] Referring Urology 04/23/18 Emergency Medical Technician Basic Relationship Specialty Start Date End Date Isauro Poe [address] [place] [address] (Fax) PCP - General Family Practice 11/04/18 Wai Matson Jr. [address] [place] [address] Referring Urology 04/23/18 Emergency Medical Technician Basic Relationship Specialty Start Date End Date Isauro Poe MD [address] [place] [address] (Fax) PCP - General Family Practice 11/04/18 Wai Matson Jr. [address] [place] [address] Referring Urology 04/23/18 Emergency Medical Technician Basic Relationship Specialty Start Date End Date Isauro Poe MD [address] [place] [address] PCP - General 06/16/12 Emergency Medical Technician Basic Relationship Specialty Start Date End Date Isauro Poe MD [address] [place] [address] (Fax) PCP - General Family Medicine 11/04/18 Wai Matson Jr. [address] [place] [address] Referring Urology 04/23/18 Emergency Medical Technician Basic Relationship Specialty Start Date End Date Isauro Poe MD [address] [place] [address] (Fax) PCP - General Family Medicine 11/04/18 Wai Matson Jr. [address] [place] [address] Referring Urology 04/23/18 Emergency Medical Technician Basic Relationship Specialty Start Date End Date Isauro Poe MD [address] [place] [address] (Fax) PCP - General Family Medicine 11/04/18 Wai Matson Jr. [address] [place] [address] Referring Urology 04/23/18 Team Status: Inactive Member Role Status Dates Zhou Fischer MD Attending Provider Active Emergency Medical Technician Basic Relationship Specialty Start Date End Date Isauro Poe MD [address] [place] [address] (Fax) PCP - General Family Medicine 11/04/18 Wai Matson Jr. [address] [place] [place] [address] Referring Urology 04/23/18 Emergency Medical Technician Basic Relationship Specialty Start Date End Date Isauro Poe MD [address] [place] [address] (Fax) PCP - General Family Medicine 11/04/18 Wai Matson Jr. [address] [place] [address] Referring Urology 04/23/18 Emergency Medical Technician Basic Relationship Specialty Start Date End Date Isauro Poe MD [address] [place] [address] (Fax) PCP - General Family Medicine 11/04/18 Wai Matson Jr. [address] [place] [place] [address] Referring Urology 04/23/18 Team Status: Active Member Role Status Dates PHYSICIAN NO FAMILY Primary Care Provider Active Team Status: Inactive Member Role Status Dates PHYSICIAN NO FAMILY Primary Care Provider Active Zhou Fischer MD Attending Provider Active Emergency Medical Technician Basic Relationship Specialty Start Date End Date Isauro Poe MD [address] [place] [address] (Fax) PCP - General Family Medicine 11/04/18 Wai Matson Jr. [address] [place] [address] Referring Urology 04/23/18 Team Status: Active Member Role Status Dates Danette Muniz NP-C Primary Care Provider Active Team Status: Inactive Member Role Status Dates Zhou Fischer MD Attending Provider Active NALINI Esteban Primary Care Provider Active Team Status: Inactive Member Role Status Dates Danette Muniz NP-C Primary Care Provider Active Mundo Dang MD Attending Provider Active Team Status: Inactive Member Role Status Dates Danette Muniz NP-C Primary Care Provider Active Zhou Fischer MD Attending Provider Active Emergency Medical Technician Basic Relationship Specialty Start Date End Date Isauro Poe MD [address] [place] [address] (Fax) PCP - General Family Medicine 11/04/18 Wai Matson Jr. [address] [place] [address] Referring Urology 04/23/18 Emergency Medical Technician Basic Relationship Specialty Start Date End Date Isauro Poe MD [address] [place] [address] (Fax) PCP - General Family Medicine 11/04/18 Wai Matson Jr. [address] [place] [address] Referring Urology 04/23/18 Team Status: Inactive Member Role Status Dates Danette Muniz NP-C Primary Care Provider Active Start: May 06, 2023 End: May 06, 2023 Mundo Dang MD Attending Provider Active Start: May 06, 2023 End: May 06, 2023 Team Status: Inactive Member Role Status Dates Danette Muniz NP-C Primary Care Provider Active Start: May 25, 2023 End: May 25, 2023 Zhou Fischer MD Attending Provider Active St art: May 25, 2023 End: May 25, 2023 Team Status: Inactive Member Role Status Dates Danette Muniz NP-C Primary Care Provider Active Start: July 21, 2023 End: July 21, 2023 Zhou Fischer MD Attending Provider Active St art: July 21, 2023 End: July 21, 2023 Emergency Medical Technician Basic Relationship Specialty Start Date End Date Isauro Poe MD (Fax) PCP - General Family Medicine 02/07/20 Team Status: Inactive Member Role Status Dates Danette Muniz NP-C Primary Care Provider Active Start: October 29, 2023 End: October 29, 2023 Zhou Fischer MD Attending Provider Active St art: October 29, 2023 End: October 29, 2023 Emergency Medical Technician Basic Relationship Specialty Start Date End Date Isauro Poe MD [address] [place] [address] (Fax) PCP - General Family Medicine 11/04/18 Wai Matson Jr. [address] [place] [address] Referring Urology 04/23/18 Source Comments (unrecognize d section and content) In the event this informatio n is protected by the Federal Confidentiality of Alcohol and Drug Abuse Patient Records regulations: The Federal rules restrict any use of the information to criminally investigate or prosecute any alcohol or drug abuse patient.[facility] the event this information is protected by the Federal Confidentiality of Alcohol and Drug Abuse Patient Records regulations: The Federal rules restrict any use of the information to criminally investigate or prosecute any alcohol or drug abuse patient.[facility] System[facility] the event this information is protected by the Federal Confidentiality of Alcohol and Drug Abuse Patient Records regulations: The Federal rules restrict any use of the information to criminally investigate or prosecute any alcohol or drug abuse patient.[facility] System[facility] the event this information is protected by the Federal Confidentiality of Alcohol and Drug Abuse Patient Records regulations: The Federal rules restrict any use of the information to criminally investigate or prosecute any alcohol or drug abuse patient.[facility] System[facility] the event this information is protected by the Federal Confidentiality of Alcohol and Drug Abuse Patient Records regulations: The Federal rules restrict any use of the information to criminally investigate or prosecute any alcohol or drug abuse patient.[facility] System[facility] the event this information is protected by the Federal Confidentiality of Alcohol and Drug Abuse Patient Records regulations: The Federal rules restrict any use of the information to criminally investigate or prosecute any alcohol or drug abuse patient.[facility] SystemIn the event this information is protected by the Federal Confidentiality of Alcohol and Drug Abuse Patient Records regulations: The Federal rules restrict any use of the information to criminally investigate or prosecute any alcohol or drug abuse patient.[facility] System[facility] the event this information is protected by the Federal Confidentiality of Alcohol and Drug Abuse Patient Records regulations: The Federal rules restrict any use of the information to criminally investigate or prosecute any alcohol or drug abuse patient.[facility] SystemIn the event this information is protected by the Federal Confidentiality of Alcohol and Drug Abuse Patient Records regulations: The Federal rules restrict any use of the information to criminally investigate or prosecute any alcohol or drug abuse patient.[facility] the event this information is protected by the Federal Confidentiality of Alcohol and Drug Abuse Patient Records regulations: The Federal rules restrict any use of the information to criminally investigate or prosecute any alcohol or drug abuse patient.[facility] System[facility] the event this information is protected by the Federal Confidentiality of Alcohol and Drug Abuse Patient Records regulations: The Federal rules restrict any use of the information to criminally investigate or prosecute any alcohol or drug abuse patient.[facility] SystemIn the event this information is protected by the Federal Confidentiality of Alcohol and Drug Abuse Patient Records regulations: The Federal rules restrict any use of the information to criminally investigate or prosecute any alcohol or drug abuse patient.[facility] SystemIn the event this information is protected by the Federal Confidentiality of Alcohol and Drug Abuse Patient Records regulations: The Federal rules restrict any use of the information to criminally investigate or prosecute any alcohol or drug abuse patient.[facility] SystemIn the event this information is protected by the Federal Confidentiality of Alcohol and Drug Abuse Patient Records regulations: The Federal rules restrict any use of the information to criminally investigate or prosecute any alcohol or drug abuse patient.[facility] Goals (unrecognized section and content) Goals may be documented in a n alternate section FOR RECORDS PERTAINING TO PATIENTS WHO ARE OR HAVE BEEN ENROLLED IN A CHEMICAL DEPENDENCY/SUBSTANCEABUSE PROGRAM, SOME INFORMATION MAY BE OMITTED. This clinical summary was aggregated from multiple sources. Caution should be exercised in using it in the provision of clinical care. This summary normalizes information from multiple sources, and as a consequence, information in this document may materially change the coding, format and clinical context of patient data. In addition, data may be omitted in some cases. CLINICAL DECISIONS SHOULD BE BASED ON THE PRIMARY CLINICAL RECORDS. [facility] [employer] provides no warranty or guarantee of the accuracy or completeness of information in this document.
[2023-12-03 08:51] LABS: Basophils Percent Auto 0.6 % (0.2-2.0); Eosinophils Absolute Auto 0.1 10^3/uL (0.0-0.7); Eosinophils Percent Auto 2.6 % (0.9-7.0); Hematocrit 42.7 % (42.0-54.0); Hemoglobin 14.8 g/dL (14.0-18.0); Immature Granulocytes Abs Auto 0.01 10^3/uL (0.00-0.03); Immature Granulocytes Pct Auto 0.2 % (0.0-0.5); Lymphocytes Absolute Auto 1.7 10^3/uL (1.2-3.8); Lymphocytes Percent Auto 33.9 % (20.5-60.0); Mean Corpuscular HGB Conc 34.7 g/dL (29.9-35.2); Mean Corpuscular Hemoglobin 31.6 pg (25.9-34.0); Mean Platelet Volume 9.8 fL (9.5-13.5); Monocytes Absolute Auto 0.5 10^3/uL (0.3-0.8); Monocytes Percent Auto 10.2 % (1.7-12.0); Neutrophils Absolute Auto 2.6 10^3/uL (1.4-6.5); Neutrophils Percent Auto 52.5 % (43.0-75.0); Platelet Count 310 10^3/uL (150-450); Red Blood Count 4.69 10^6/uL (4.70-6.10)
[2023-12-03 09:05] LABS: Estimated Average Glucose 117 mg/dL; Glycohemoglobin A1C 5.7 % (4.5-6.2)
[2023-12-03 09:28] LABS: Alanine Aminotransferase 50 U/L (16-63); Albumin Globulin Ratio 1.3; Alkaline Phosphatase 82 U/L (46-116); Anion Gap 10.6; Aspartate Amino Transferase 21 U/L (15-37); Bilirubin Total 0.7 mg/dL (0.2-1.0); Calcium 9.1 mg/dL (8.5-10.1); Carbon Dioxide 30.7 mmol/L (21.0-32.0); Chloride 106 mmol/L (98-107); Chol HDL Ratio 3.6; Cholesterol 146 mg/dL (<=200); Estimated GFR (African America >60 (>=60); Estimated GFR (Non-African Ame >60 (>=60); Free T3 2.37 pg/mL (2.18-3.98); Globulin 3.2 g/dL; Glucose 107 mg/dL (74-106); HDL Cholesterol 41 mg/dL (40-60); Potassium 4.3 mmol/L (3.5-5.1); Sodium 143 mmol/L (136-145); Thyroid Stimulating Hormone 1.134 uIU/mL (0.358-3.740); Total Protein 7.2 g/dL (6.4-8.2); Triglycerides 125 mg/dL (<=150)
[2023-12-03 12:27] LABS: Prostate Specific Antigen Scrn 0.52 ng/mL (<=4.00)
[2023-12-04 06:10] LABS: Insulin 15.7 uIU/mL (2.6-24.9)
[2023-12-04 07:10] LABS: Testosterone 594 ng/dL (264-916)
== END 2023-12-03 08:08 | disposition home or self-care (01) ==
LOC: RAD 08:08
PROVIDERS: PCP Nurse Practitioner Family; Visit Provider Nurse Practitioner Family
DX: M25.522 Pain in left elbow (principal); I10 Essential (primary) hypertension; M19.022 Primary osteoarthritis, left elbow
CPT/HCPCS: 36415; 73080; 80053; 80061; 83036; 83525; 84403; 84436; 84443; 84481; 85025; G0103

== ENCOUNTER 2024-08-10 10:07 | Outpatient (OUT) | payer MEDICARE, OTHER, SELFPAY ==
--- NOTE | 2024-08-10 10:19 | XR_ITS ---
The [address] [address] Patient Name: ARCELIA FRANCISCO MRN: [id number] date: 1950 Sex: M Assigned Patient Location: [facility] Current Patient Location: Accession/Order Number: [id number] Exam Date: 08/10/2024 10:24 Report Date: 08/11/2024 09:43 At the request of: FLOR MUNIZ Procedure: XR lumbar spine 2-3V EXAMINATION: XR lumbar spine 2-3V HISTORY: Back Pain ; low back pain; no known injury COMPARISON: XR lumbar spine 06/13/2021 FINDINGS: BONES: Mechanical fusion of L5-S1 via bilateral pedicle screws and rods; no appreciable hardware fracture loosening. Posterior decompression of L5. Mild left convex curvature of lumbar spine and mild Grade 1 anterolisthesis of L4 on 5. Mild-moderate degenerative facet arthropathy L3-4 through L5-S1. DISC SPACES: Moderate narrowing L2-3. Mild narrowing T12-L1, L1-2, L4-5. Intervertebral disc spacer at L5-S1 with mild narrowing. PARASPINOUS: Negative. No paraspinous abnormality is seen. OTHER: Negative. XR/XR lumbar spine 2-3V IMPRESSION: 1. Stable surgical changes. 2. Stable to slight progression of degenerative changes. No appreciable acute abnormality. Electronically authenticated by: MEGAN CHRISTIANSON Date: 08/11/2024 09:43
== END 2024-08-10 10:08 | disposition home or self-care (01) ==
LOC: RAD 10:09
PROVIDERS: PCP Nurse Practitioner Family; Visit Provider Nurse Practitioner Family
DX: M54.9 Dorsalgia, unspecified (principal); M43.27 Fusion of spine, lumbosacral region; M51.369 Other intervertebral disc degeneration, lumbar region without mention of lumbar back pain or lower extremity pain
CPT/HCPCS: 72100

== ENCOUNTER 2024-08-19 09:17 | Outpatient (OUT) | payer MEDICARE, OTHER, SELFPAY ==
--- NOTE | 2024-08-19 | XR_ITS ---
The [address] [address] Patient Name: ARCELIA FRANCISCO MRN: [id number] date: 1950 Sex: M Assigned Patient Location: Current Patient Location: Accession/Order Number: [id number] Exam Date: 08/19/2024 10:57 Report Date: 08/19/2024 11:02 At the request of: VICKY PUGH MD Procedure: XR lumbar spine 2-3V LUMBAR SPINE FLEXION AND EXTENSION VIEWS - 3 views COMPARISON: 08/10/2024 CLINICAL DATA: Low back pain with radiation down the right leg. Previous fusion. Standing lateral views in neutral, flexion and extension were obtained. There is prior lumbosacral laminectomy and fusion with posterior rods, pedicle screws and interbody fusion device. The hardware appears intact and unchanged from the prior. There is continued anterolisthesis of L4 on L5 of approximately 6 mm. Alignment does not change significantly with flexion or extension. There is moderate disc space narrowing at L2-3 and mild at L1-2 and L4-5. There are small endplate spurs. There is mid and lower lumbar facet hypertrophy. No paraspinal soft tissue abnormalities are noted. XR/XR lumbar spine 2-3V IMPRESSION: SIMILAR POSTOPERATIVE AND DEGENERATIVE CHANGES. Impression dictated by: Kandi Gutierrez M.D.08/19/2024 11:02 AM Dictation Location: [place] [address] Electronically authenticated by: [id number] Y Date: 08/19/2024 11:02
--- OUTSIDE RECORDS SUMMARY | 2024-08-19 09:24 | XMS_ITS | CCD ---
Author Organization [facility] Care Team Providers Care Informatics Nurse Name Role Phone Isauro Poe Primary Care Provider EDY VILLALPANDO Attending Unavailable EDY VILLALPANDO Referring Unavailable ISAURO POE Primary Care Unavailable VIAEDY Meeks Attending Unavailable BRIANNA, EDY VELASCO Referring Unavailable ISAURO POE Primary Care Unavailable BRIANNA, EDY VELASCO Attending Unavailable EDY VILLALPANDO Referring Unavailable ISAURO POE Primary Care Unavailable Isauro Poe Primary Care Provider Isauro Poe MD Primary Care Provider [phone] Isauro Poe MD Primary Care Provider Isauro Poe MD Primary Care Provider Wai Matson Jr. Unavailable Isauro Poe Primary Care Provider Isauro Poe MD Primary Care Provider Isauro Poe MD Primary Care Provider ZEINAB LOMELI Referring Unavailable ISAURO POE Primary [...] DANETTE Attending Unavailable CRISTY, DANETTE Admitting Unavailable FEITIFFANY, ALENA Consulting Unavailable CRISTY, DANETTE Primary Care Unavailable CRISTY, DANETTE Consulting Unavailable CRISTY, DANETTE Attending Unavailable CRISTY, DANETTE Admitting Unavailable CRISTY, DANETTE Primary Care Unavailable ACOSTA ., MR ALEJANDRO Consulting Unavailable NATALEE NGUYEN Admitting Unavailable NATALEE NGUYEN Attending Unavailable NO FAMILY, PHYSICIAN Primary Care Provider Unava ilable MD Zhou Fischer Attending Provider [phone] NO FAMILY, PHYSICIAN Primary Care Provider Unava ilable MD Zhou Fischer Attending Provider [phone] NO FAMILY, PHYSICIAN Primary Care Provider Unava ilable MD Zhou Fischer Attending Provider NALINI Muniz Danette Beatris Primary Care Provider [phone] MD Mundo Dang Attending Provider [phone] MD Zhou Fischer Attending Provider NALINI Muniz Danette Beatris Primary Care Provider [phone] MD Zhou Fischer Attending Provider Isauro Poe MD Primary Care Provider [phone] ISAURO POE Primary Care Unavailable SABINA RED Attending Unavailable NALINI Muniz Beatris Primary Care Provider [phone] MD Zhou Fischer Attending Provider Isauro Poe MD Primary Care Provider AILYN PATINO Attending UnavailAILYN Loaiza Referring Unavailabl e AILYN PATINO Referring Unavailabl e AILYN PATINO Attending UnavailZEINAB Teresa Attending Unavailable ZEINAB LOMELI Attending Unavailable ZEINAB LOMELI Referring Unavailable ZEINAB LOMELI Attending Unavailable NALINI Muniz Beatris Primary Care Provider MD Zhou Fischer Attending Provider [phone] NALINI Muniz Primary Care Provider MD Zhou Fischer Attending Provider [phone] Danette Muniz Primary Care Unavailable Amado, Zhou Attending Unavailable Amado, Zhou Admitting Unavailable Amado, Zhou Admitting Unavailable Cristy Danette Garciae Primary Care Unavailable Amado, Zhou Attending Unavailable Amado, Zhou Admitting Unavailable Danette Muniz Beatris Primary Care Unavailable Amado, Zhou Attending Unavailable Amado, Zhou Admitting Unavailable Danette Muniz Beatris Primary Care Unavailable Amado, Zhou Attending Unavailable Cristy, Danette Beatris Primary Care Unavailable Amado, Zhou Admitting Unavailable Amado, Zhou Attending Unavailable Risa Munizela Beatris Primary Care Unavailable Amado, Zhou Attending Unavailable Zhou Fischer Admitting Unavailable Unallocated , N[place] Provider Primary Care [facility] tiffany [facility] Unavailab NANCI Gruber Attending Unavailable ISAURO POE Primary Care Unavailab NANCI Gruber Attending Unavailable Allergies Allergy Classification Reported Allergen(s) Allergy Type Date of Onset Reaction(s) Facility Opioid Agonists (2 sources) Meperidine Drug Allergy 05-29-2011 Anaphylaxis [facility] (20 sources) Meperidine; Translations: [MEPERIDINE (PF)] Drug Allergy 05-29-2011 Anaphylaxis [facility] (12 sources) Meperidine; Translations: [Demerol] Drug Allergy 02-27-2001 [place] (5 sources) Meperidine Drug Allergy 01-30-2023 Other [facility] Healthcare Work Phone: (1 source) Meperidine Drug Allergy 07-21-2023 [facility] Repository Medications Current Medications Medication Drug [...] Take 10 mg by mouth once daily. Active amLODIPine Besyl ate Active Comment on above: Take 10 mg by mouth once daily. amLODIPine 10 mg / benazepril hydrochloride 20 mg oral capsule (9 sources) Dihydropyridine Calcium Channel Ramonita, Angiotensin Converting Enzyme Inhibitor Start: 11-11-2023 amLODIPine-benazepr il (Lotrel) 10-20 MG capsule 11/11/2023 Active Start: 05-06-2023 take 1 capsule by [facility] once daily Amlodipine-Benazepril Active 1 CAP PO Daily May 06, 2023 12:00am aspirin 81 mg oral tablet (11 sources) Platelet Aggregation Inhibitor, Nonsteroidal Anti-inflammatory Drug take 1 tablet by mouth once daily aspirin 81 MG tablet Take 81 mg by mouth daily. 0 Active clotrimazole 10 mg/ml topical solution (15 sources) Azole Antifungal Start: 12-24-19 19 clotrimazole (LOTRIMIN) 1 % external solution 12/23/2018 Active diclofen dfn-hkulfl-o-jane-men t (NUDROXIPAK DSDR-75) 75 mg-0.025 %- 25 %-6 % kit (7 sources) diclofen von-tqaydb-e-jane-me nt (NUDROXIPAK DSDR-75) 75 mg-0.025 %- 25 %-6 % kit twice daily. Take diclofenac 1 tablet (75 mg) by mouth 2 daily. Apply capsaicin-methyl salicylate-menthol liquid topically to the affected area as directed (no more than 4 times per day). Active diclofen sod-cap jqj-p-jgi-ment (NUDROXIPAK DSDR-75) 75 mg-0.025 %- 25 %-6 [...] than 4 times per day). diclofenac sodium 0.01 mg/mg topical gel (13 sources) Nonsteroidal Anti-inflammatory Drug Start: 09-08-2023 diclofenac sodium (Voltaren) 1 % gel Indications: Foot pain, left Apply 2 g topically in the morning and 2 g in the evening and 2 g before bedtime. 100 g 2 09/08/2023 Active Start: 05-06-2023 take 75 mg by mouth once daily Diclofenac Sodium Active 75 MG PO Daily May 06, 2023 12:00am End: 10-20-2023 diclofenac sodium 1% (VOLTAR EN) 1 % Gel APPLY 2 G TOPICALLY IN THE MORNING AND 2 G IN THE EVENING AND 2 G BEFORE BEDTIME. 0 10/20/2023 Discontinued (Therapy completed) take 2 tablets by [facility] every twenty-four hours Diclofenac Sodium 75 MG 2 tablets Oral once a day for 30 Days Active finasteride 5 mg oral tablet (20 sources) 5-alpha Reductase Inhibitor Start: 05-06-2023 take 5 mg by mouth once daily Finasteride Active 5 MG PO Daily May 06, 2023 12:00am Finasteride Acti ve Comment on above: Take 5 mg by mouth o nce daily. folic acid 1 mg oral tablet (10 sources) Start: 05-06-2023 take 1 tablet by mouth once daily folic acid (Folvite) 1 MG tablet Take 1,000 mcg by mouth Daily 08/27/2023 Active Folic Acid Activ e gemfibrozil 600 mg oral tablet (20 sources) Peroxisome Proliferator Receptor alpha Agonist take 1 tablet by mouth once daily gemfibrozil (LOPID) 600 mg tablet Take 600 mg by mouth once daily. Active End: 10-20-2023 take 1 tablet by mouth twice daily before mealtime gemfibroziL (LOPID) 600 MG tablet Take 1 (one) tablet (600 mg total) by mouth 2 (two) times a day before meals . 0 10/20/2023 Discontinued (Therapy completed) Comment on above: Take 600 mg by mouth once daily. gluc garcia/chondro garcia A/vit C/Mn (GLUCOSAMINE 1500 COMPLEX ORAL) (20 sources) gluc garcia/chondro garcia A/vit C/Mn (GLUCOSAMINE 1500 COMPLEX ORAL) Take by mouth. Active gluc garcia/chondro garcia A/vit C/Mn (GLUCOSAMINE 1500 COMPLEX ORAL) Take by mouth. 0 Active gluc garcia/chondro garcia A/vit C/Mn (GLUCOSAMINE 1500 COMPLEX ORAL) Take by mouth . 0 Active Comment on above: Take by mouth. glucosamine sulfate 500 mg o ral capsule (5 sources) Glucosamine 500 MG capsule 1 (one) time each day at the same time. Active Glucosamine Acti ve Wyztikdibzv-Mbeetajza-Psy C-Mn (7 sources) Start: 05-06-2023 take 1 capsule by mouth once daily Bxhztjwijjy-Ntamcgdho-Tnt C-Mn Active 1 CAP PO Daily May 06, 2023 1:00am Start: 05-06-2023 take 1 capsule by mo uth once daily Pvgmahfbqyo-Zdqqkccvl-Gqy C-Mn Active 1 CAP PO Daily May 06, 2023 12:00am Sdjpkmwkekk-Iemrcvume-Xrc C-Mn (GLUCOSAMINE 1500 COMPLEX PO) (11 sources) Glucosamine-Xavier droit-Vit C-Mn (GLUCOSAMINE 1500 COMPLEX PO) Take 1,500 mg by mouth 2 times daily. 0 Active gramicidin 0.025 mg/ml / neomycin 1.75 mg/ml / polymyxin b 75736 unt/ml ophthalmic solution (11 sources) Aminoglycoside Antibacterial, Polymyxin-class Antibacterial Sta rt: 8 take 1 drop(s) into the eye(s) four times daily yktuosib-hvtzxyvir-cuqohhbmq n (NEOSPORIN) 1.75-85853-.[address] 1 drop into both eyes 4 times daily 1 Bottle 0 09/12/2017 Active hydrocortisone 10 mg/ml / neomycin 3.5 mg/ml / polymyxin b 45184 unt/ml otic solution (15 sources) Aminoglycoside Antibacterial, Polymyxin-class Antibacterial, Corticosteroid Sta rt: 9 zagyfycr-asdfmdbkk-imeqwpllu isone (CORTISPORIN) otic solution 12/15/2018 Active hydroxychloroquine sulfate 200 mg oral tablet (17 sources) Antimalarial, Antirheumatic Agent Sta rt: 3 take 200 mg by mouth once daily Hydroxychloroquine Active 200 MG PO Daily May 06, 2023 12:00am take 1 tablet by sylvester th twice daily at mealtime hydroxychloroquine (Plaquenil) 200 MG ta blet TAKE 1 TABLET BY MOUTH TWICE A DAY WITH FOOD *YEARLY EYE EXAM* Active Comment on above: Take 200 mg by mouth twice daily. iv contrast (will be provided with radiology test) (3 sources) Start: 06-07-2024 End: 06-08-2024 iv contrast (will be provided with radiology test) Indications: History of bladder cancer CT Urogram WO/W [...] CT contrast administration guidelines link. 1 Each 06/07/2024 06/08/2024 Active Start: 05-02-2022 End: 05-03-2022 iv contrast (will be provide d with radiology test) CT Urogram WO/W Inject, [...] Take 100 mg by mouth once daily. Active Losartan Potassi um Active Comment on above: Take 100 [...] 02/07/2021 Active methotrexate 2.5 mg oral tablet (14 sources) Folate Analog Metabolic Inhibitor Start: 08-27-19 methotrexate 2.5 MG tablet TAKE 5 TABLETS BY MOUTH EVERY WEEK ONCE A WEEK REMEBER YOUR STANDING LABS 08/27/2023 Active Start: 05-06-2023 take 12.5 mg by mout h every week Methotrexate Sodium Active 12.5 MG PO every week May 06, 2023 12:00am take 2.5 mg by mouth five times daily METHOTREXATE ORAL Take 2.5 mg by mouth five times daily. Active Comment on above: Take 2.5 mg by mouth five times daily. Multiple Vitamin (multivitamin) tablet (1 source) take 1 tablet by mouth once daily Multiple Vitamin (multivitamin) tablet Take 1 tablet by mouth Daily Active mnxhrqop-cfj-qphykdl sulfate (One Daily Multi-Vit w-Mineral) 4.5 mg iron Tab (9 sources) kulhfatb-nfa-vdq hamlet sulfate (One Daily Multi-Vit w-Mineral) 4.5 mg iron Tab Take by mouth . 0 Active multivit-minerals/FA/l ycopene (ONE-A-DAY MEN'S ORAL) (15 sources) multivit-mineral s/FA/ lycopene (ONE-A-DAY MEN'S ORAL) Take by mouth. Active multivit-mineral s/FA/lycopene (ONE-A-DAY MEN'S ORAL) Take by mouth. 0 Active Comment on above: Take by mouth. Multivitamin preparation (10 sources) Start: 05-06-2023 take 1 tablet by [...] 20 MG PO Daily May 06, 2023 12:00am omeprazole (PRIL OSEC) 40 MG capsule Take 20 mg by mouth daily . 0 Active Omeprazole Activ e take 1 capsule by mouth once arnaldo ly omeprazole (PRILOSEC) 40 MG capsule Take 40 mg by mouth daily. 0 Active Comment on above: Take 20 mg by mouth once daily. predniSONE 20 mg oral tablet (8 sources) Start: 11-11-2021 take 2 tablets by mouth once daily at mealtime predniSONE (DELTASONE) 20 MG tablet Indications: Viral upper respiratory tract infection with cough Take 2 tablets by mouth daily x 5 days. Take with food. 10 tablet 0 11/11/2021 Active predniSONE EC 5 mg Delayed Release Tab Take 5 mg by mouth as needed. Active Comment on above: Take 5 mg by mouth a s needed. pyridoxine hydrochloride 25 mg oral tablet (1 source) pyridoxine (Berkley min B-6) 25 MG tablet Vitamin B6 Active pyridoxine HCl, vitamin B6, (VITAMIN B-6 ORAL) (20 sources) pyridoxine HCl, vitamin B6, (VITAMIN B-6 ORAL) Take 100 mg by mouth. Active pyridoxine HCl, vitamin B6, (VITAMIN B-6 ORAL) Take 100 mg by mouth. 0 Active pyridoxine HCl, vitamin B6, (VITAMIN B-6 ORAL) Take 100 mg by mouth . 0 Active Comment on above: Take 100 mg by mouth . 1000 ml sodium chloride 9 mg/ml injection (3 sources) Start: 06-07-2024 End: 06-07-2024 0.9 % sodium chloride (NACL 0.9%) infusion Indications: History of bladder cancer Administer at rate defined per CT contrast administration specifications. To be provided with radiology test. 150 mL 06/07/2024 06/07/2024 Active Start: 05-02-2022 End: 05-02-2022 inject 1 dose intravenously once 0.9 % [...] specifications. To be provided with radiology test. tamsulosin hydrochloride 0.4 mg oral capsule (1 source) alpha-Adrenergic Ramonita Start: 024 take 1 capsule by mouth once daily at bedtime tamsulosin (FLOMAX) 0.4 mg Take 1 capsule by mouth daily at bedtime. 90 capsule 3 06/07/2024 Active vitamin b12 0.1 mg oral tablet (4 sources) Vitamin B12 take 1 tablet by mouth once daily cyanocobalamin (Vitamin B-12) 100 MCG tablet Take 100 mcg by mouth Daily Active Vitamin B12 Acti ve Vitamin B6 (4 sources) Vitamin B6 Activ e Completed/Discontinued Medications Medication Drug Class(es) Dates Sig (Normalized) Sig (Original) bcg 50 mg in NaCl 0.9% 50 mL (1 source) Start: 10-24-2021 End: 10-24-2021 bcg 50 mg in NaCl 0.9% 50 mL lidocaine hydrochloride 0.02 mg/mg topical gel (11 sources) Antiarrhythmic, Amide Local Anesthetic Start: 06-07-2024 End: 06-07-2024 lidocaine urojet 2 % 11 mL topical gel (GLYDO) Start: 06-07-2024 End: 06-07-2024 11 mL, URETHRAL, ONCE (UP TO 30 DAYS AMB), 1 dose, On Thu06/07/24 at 1300, FOR EXTERNAL USE ONLY APPLY TO: urethra for cystoscopy Start: 12-01-2023 End: 12-01-2023 lidocaine urojet 2 % 11 mL t opical gel (GLYDO) Start: 06-02-2023 End: 06-02-2023 lidocaine [...] of bladder, unspecified] Onset: 8 05-11-2018 Chronic Cancer of bladder (9 sources) H/O: malignant neoplasm; Translations: [Personal history of malignant neoplasm of bladder] Onset: 2 Episodic Chronic obstructive pulmonary disease and bronchiectasis (12 sources) Chronic obstructive lung disease; Translations: [Chronic obstructive pulmonary disease, unspecified] Onset: 1 05-29-2011 Chronic Digestive congenital anomalies (8 sources) Esophageal diverticulum; 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] Onset: 2 Resolved: 2 Chronic Disorders of lipid metabolism (16 sources) Pure hypercholesterolemia; Translations: [Pure hypercholesterolemia, unspecified] Onset: 9 11-03-2018 Chronic Esophageal disorders (16 sources) Gastroesophageal reflux disease; Translations: [Gastro-esophageal reflux disease without esophagitis] Onset: 1 05-29-2011 Chronic Essential hypertension (5 sources) Essential (primary) hypertension; Translations: [Essential hypertension] Onset: 9 10-20-2023 Chronic Hyperplasia of prostate (17 sources) Benign prostatic hyperplasia; Translations: [Benign prostatic hyperplasia with lower urinary tract symptoms] Onset: 8 11-03-2018 Chronic Osteoarthritis (20 sources) Degenerative joint disease involving multiple joints; Translations: [Polyosteoarthritis, unspecified] Onset: 1 05-29-2011 Chronic Other acquired deformities (14 sources) Lumbar spondylolisthesis; Translations: [Spondylolisthesis of lumbar region] Onset: 0 02-07-2020 Other aftercare (5 sources) History of bladder neoplasm; Translations: [Encounter for follow-up examination after completed treatment for malignant neoplasm] Episodic Other aftercare (1 source) Encounter for follow-up examination after completed treatment for malignant neoplasm; Translations: [Encounter for follow-up surveillance of bladder cancer] Onset: 4 Episodic Other connective tissue disease (1 source) Presence of right artificial hip joint; Translations: [PRESENCE RIGHT ARTIFICIAL HIP JOINT] Onset: 3 Chronic Other ear and sense organ disorders (16 sources) Hearing loss; Translations: [Unspecified hearing loss, unspecified ear] Onset: 3 05-14-2018 Chronic Other gastrointestinal disorders (10 sources) Dysphagia; Translations: [Dysphagia, unspecified] 05-06-2023 Episodic Other gastrointestinal disorders (3 sources) Dysphagia, unspecified; Translations: [Dysphagia, unspecified] Episodic Other liver diseases (1 source) Fatty (change of) liver, not elsewhere classified; Translations: [FATTY CHANGE LIVER NEC] Onset: 3 Chronic Other non-traumatic joint disorders (1 source) Pain in right hip joint; Translations: [Pain in right hip] Episodic Other upper respiratory infections (1 source) Viral upper respiratory tract infection; Translations: [Acute upper respiratory infection, unspecified] Episodic Residual codes; unclassified (2 sources) Sleep apnea; Translations: [Sleep apnea, unspecified] Onset: [...] 10-20-2023 Episodic Rheumatoid arthritis and related disease (8 sources) Rheumatoid arthritis; Translations: [Rheumatoid arthritis, unspecified] [...] sites without organ or systems involvement] Onset: 4 Past or Other Problems Problem Classification Problem Date Documented Da te Episodic/Chronic Complications of surgical procedures or medical care (16 sources) Subcutaneous emphysema resulting from a procedure; Translations: [Emphysema (subcutaneous) resulting from a procedure, initial encounter] Onset: 03-29-2018 11-03-2018 Episodic E Codes: Struck by; against (1 source) Striking against or struck by other objects, initial encounter; Translations: [STRIKING AGNST/STRUCK OTH OBJ INIT] Onset: 01-04-2023 Episodic Genitourinary symptoms and ill-defined conditions (20 sources) Microscopic hematuria; Translations: [Other microscopic hematuria] Onset: 04-08-2018 05-11-2018 Episodic Nonspecific chest pain (4 sources) Other chest pain; Translations: [OTHER CHEST PAIN] Onset: 04-02-2022 Episodic Other acquired deformities (4 sources) Lumbar spondylolisthesis; Translations: [Spondylolisthesis, lumbar region] Onset: 02-07-2020 02-07-2020 Episodic Other aftercare (1 source) Other buttermaker (current) drug therapy; Translations: [OTH SPA DIRECTOR/FINANCE CURRENT DRUG THERAPY] Onset: 07-02-2022 Episodic Other connective tissue disease (1 source) Arthrodesis status; Translations: [ARTHRODESIS STATUS] Onset: 07-02-2022 Episodic Residual codes; unclassified (17 sources) Disorder of digestive tract; Translations: [Acquired absence of other specified parts of digestive tract] Onset: 04-14-2018 11-03-2018 Episodic Residual codes; unclassified (1 source) Acquired absence of other specified parts of digestive tract; Translations: [ACQ ABSENCE OTH PART DIGESTV TRACT] Onset: 07-02-2022 Episodic Spondylosis; intervertebral disc disorders; other back problems (17 sources) Backache; Translations: [Spinal stenosis of lumbar region] Onset: 02-07-2020 Resolved: 10-20-2023 02-07-2020 Episodic Superficial injury; contusion (4 sources) Contusion of right lower leg, initial encounter; Translations: [CONTUSION RIGHT LOWER LEG INITIAL] Onset: 06-30-2022 Episodic Results Test Name Value Interpretation Reference Range Facility [facility] CYTOLOGY NON-GYNon 06-09 [facility] CASE REPORT [facility] Comment on above: Medical Cytology Rep ort Case: [id number] Authorizing Provider: Nanci Carvajal MD Collected: 06/07/2024 02:18 PM Ordering Location: Urology Received: 06/07/2024 08:24 PM Pathologist: Keiko Roque MD Specimen: Urine, Midstream [facility] CLINICAL HISTORY history of bladder canccer [facility] FINAL DIAGNOSIS [facility] Comment on above: A - Urine, Midstream Suspicious for high-grade urothelial carcinoma (see comment). FINAL PERFORMING LAB [facility] Comment on above: Technical component, hydraulic pile hammer operator screening performed at [facility], [address] [place] [id number] CLIA# [id number] Diagnostic interpretation performed at [facility], [address] [place] [address] CLIA# [id number] [place] Administrator: Reid Monteiro M.D. [facility] GROSS DESCRIPTION [facility] Comment on above: A. Urine, Midstream 100 cc clear yellow fluid. ThinPrep prepared. Specimen Type: URINE SPECIMEN Ordering Facility: [facility] Address: [address] [place] [address] Original Ordering Provider: [facility] CNOV Office Visit (UROSMN) ---- TIMUR FRANCISCO ([id number]) 1950 M Date Time Provider Department 06/07/24 2:00 PM NANCI CARVAJAL During your visit today, we recorded the following information about you: Gregorio Higgins RN 06/07/2024 2:17 PM Signed Patient ID with (2) Identifiers, Verified by: Gregorio Higgins RN Actual procedure/procedure scheduled: Yes Performing provider/scheduled provider: Yes Patient was roomed in: Q9- 06 Slip Filler offered:Patient declines Patient arrived in the room at: 1352 Patient ready for procedure: 1403 The procedure started at ( Time Only): 1413 The procedure ended at: 1415 Was the procedure delayed: Yes: Room turn around/patient delay ProNox Utilized: No The patient left the procedure room at: 1425 Gregorio Higgins RN PRE PROCEDURE ASSESSMENT- Cysto Latex Allergy: No Allergies reviewed and updated. Yes Pre-Procedure Vital Signs: BP: 138/91 Pulse: 91 Heart valve replacement: No Joint replacement: Yes Back Office UA otained: no PROCEDURE PREP-Cysto Patient Prep: Betadine Placement of Sterile Drape: COMPLETED Anesthetic Given:see milton Higgins RN POST PROCEDURE NURSE ASSESSMENT Present along with physician during procedure exam. Gregorio Higgins RN Current pain intensity is 0 on a 0-10 pain scale. Gregorio Higgins RN AMBULATORY PATIENT EDUCATION THE FOLLOWING WAS EVALUATED Motivation To Learn: Interested Family/Significant Other Support: None - Unavailable/disinte rested Cognitive Ability: Alert/Oriented Method of Instruction: Individual instruction Written instruction/Handout s Verbal instruction The Following Influencing Factors Were Barriers To This Education Session: None The Following Physical Limitations Were Barriers To This Education Session: None Instruction Provided To: Patient Typewriter Aligner Present: not applicable Discipline: Nursing Learning Topic: SURVIVAL SKILLS: Complication Prevention Patient Evaluation: Verbalizes understanding: Yes Supplemental Material Given: None Instructed By Gregorio Higgins RN In Department Urology . UNIVERSAL PROTOCOL / SAFETY CHECKLIST Procedure to [...] Plan of Care Visit completed when applicable. REGINO Maddox Samuel, MD 06/07/2024 3:24 PM Signed PHYSICIANS NOTE: CYSTOSCOPY PROCEDURE: June 07, 2024 Sign In History and Physical Exam reviewed [...] finishing 03/05/2021 Last cystoscopy 06/02/2023 CT Urogram 11/2023 - neg Details of Procedure: After sterile prep and drape, the flexible cystoscope was placed through the urethra which was examined in its entirety. Urethral stricture: None The entire mucosa was examined. The scope was flexed in the dome of the bladder and used to look at the bladder in retroverted fashion. Findings: Normal UOs bilaterally Prior resection sites noted No mucosal lesions, no papillary tumors Prostate enlarged Normal urethra The scope was removed with a repeat examination of the prostate and penile urethra done during removal. Plan - trial flomax - cytology - cystoscopy 6 months - CT urogram 6 mon (more content not included)... Normal [facility] CYTOLOGY NON-GYNon CASE REPORT Normal [facility] Comment on above: Order Comment: Speci men Type: URINE SPECIMEN Ordering Facility: [facility] Address: [address] [place] [address] Result Comment: [facility] Cytology Report Case: [id number] Authorizing Provider: Nanic Carvajal MD Collected: 06/07/2024 02:18 PM Ordering Location: Urology Received: 06/07/2024 08:24 PM Pathologist: Keiko Roque MD Specimen: Urine, Midstream Performed By: #### C YTONON #### [facility] CLIA [id number] [address] [place] [address] [place] CLINICAL HISTORY history of bladder canccer Normal [facility] Comment on above: Order Comment: Speci men Type: URINE SPECIMEN Ordering Facility: [facility] Address: [address] [place] [address] Performed By: #### C YTONON #### [facility] [facility] CLIA [id number] [address] [place] [address] [place] FINAL DIAGNOSIS Normal [facility] Comment on above: Order Comment: Speci men Type: URINE SPECIMEN Ordering Facility: [facility] Address: [address] [place] [address] Result Comment: A - Urine, Midstream Suspicious for high-grade urothelial carcinoma (see comment). Performed By: #### C YTONON #### [facility] CLIA [id number] [address] [place] [address] [place] OF [facility] FINAL PERFORMING LAB Normal [facility] Comment on above: Order Comment: Speci men Type: URINE SPECIMEN Ordering Facility: [facility] Address: [address] [place] [address] Result Comment: Tech nical component, hydraulic pile hammer operator screening performed at [facility], [address] [place] [address] CLIA# [id number] Diagnostic interpretation performed at [facility], [address] [place] [address] CLIA# [id number] [place] Administrator: Reid Monteiro M.D. Performed By: #### C YTONON #### [facility] CLIA [id number] [address] [place] [address] [place] GROSS DESCRIPTION Normal [facility] Comment on above: Order Comment: Speci men Type: URINE SPECIMEN Ordering Facility: [facility] Address: [address] [place] [address] Result Comment: A. U rine, Midstream 100 cc clear yellow fluid. ThinPrep prepared. Performed By: #### C YTONON #### [facility] CLIA [id number] [address] [place] [address] [place] Alanine aminotransferase [En zymatic activity/volume] in Serum or PlasmaOrdered By: Zhou Fischer on 05-02-2024 ALT [Catalytic activity/Vol] 32 U/L Normal 7-52 [facility] Comment on above: Performed By: #### H EPATIC, ESR, CREAT, CBC #### [address] Albumin [Mass/volume] in Ser um or Plasma by Bromocresol green (BCG) dye binding methoOrdered By: Zhou Fischer on 05-02-2024 Albumin BCG dye [Mass/Vol] 4.4 g/dL 3.5-5.7 [facility] Alkaline phosphatase [Enzyma tic activity/volume] in Serum or PlasmaOrdered By: Zhou Fischer on 05-02-2024 ALP [Catalytic activity/Vol] 66 U/L Normal 34-104 [facility] Comment on above: Performed By: #### H EPATIC, ESR, CREAT, CBC #### [address] Aspartate aminotransferase [ Enzymatic activity/volume] in Serum or PlasmaOrdered By: Zhou Fischer on 05-02-2024 AST [Catalytic activity/Vol] 27 U/L Normal 13-39 [facility] Comment on above: Performed By: #### H EPATIC, ESR, CREAT, CBC #### [address] Automated basophil %Ordered By: Zhou Fischer on 05-02-2024 Basophils/100 WBC (Bld) 0.7 % Normal . [facility] Comment on above: Performed By: #### H EPATIC, ESR, CREAT, CBC #### [address] Automated basophil countOrde red By: Zhou Fischer on 05-02-2024 Basophils (Bld) [#/Vol] 0.0 10*3/uL Normal 0.0-0.2 [facility] Comment on above: Performed By: #### H EPATIC, ESR, CREAT, CBC #### [address] Automated blood monocyte cou ntOrdered By: Zhou Fischer on 05-02-2024 Monocytes (Bld) [#/Vol] 0.6 10*3/uL Normal 0.0-0.8 [facility] Comment on above: Performed By: #### H EPATIC, ESR, CREAT, CBC #### [address] Automated eosinophil %Ordere d By: Zhou Fischer on 05-02-2024 Eosinophils/100 WBC (Bld) 2.4 % Normal . [facility] Comment on above: Performed By: #### H EPATIC, ESR, CREAT, CBC #### [address] Automated eosinophil countOr dered By: Zhou Fischer on 05-02-2024 Eosinophils (Bld) [#/Vol] 0.1 10*3/uL Normal 0.0-0.45 [facility] Comment on above: Performed By: #### H EPATIC, ESR, CREAT, CBC #### [address] Automated monocyte %Ordered By: Zhou Fischer on 05-02-2024 Monocytes/100 WBC (Bld) 11.5 % Normal . [facility] Comment on above: Performed By: #### H EPATIC, ESR, CREAT, CBC #### [address] Automated neutrophil %Ordere d By: Zhou Fischer on 05-02-2024 Neutrophils/100 WBC (Bld) 55.5 % Normal . [facility] Comment on above: Performed By: #### H EPATIC, ESR, CREAT, CBC #### [facility] [address] [place] [address] Bilirubin.direct [Mass/volum e] in Serum or PlasmaOrdered By: Zhou Fischer on 05-02-2024 Bilirubin.direct [Mass/Vol] 0.10 mg/dL 0.03-0.18 [facility] Bilirubin.total [Mass/volume ] in Serum or PlasmaOrdered By: Zhou Fischer on 05-02-2024 Bilirubin [Mass/Vol] 0.5 mg/dL Normal 0.3-1.0 [facility] Comment on above: Performed By: #### H EPATIC, ESR, CREAT, CBC #### [facility] [address] [place] [address] Complete Blood Count Auto Di ffon 05-02-2024 Mean Corpuscular HGB Conc 34.8 g/dL Normal 32.5-35.6 [facility] Comment on above: Performed By: #### H EPATIC, ESR, CREAT, CBC #### [facility] [address] [place] [address] NRBC% 0.2 /100{WBC} Normal 0-0.5 [facility] Comment on above: Performed By: #### H EPATIC, ESR, CREAT, CBC #### [address] Creatinineon 05-02-2024 GFR/1.73 sq M.predicted MDRD (S/P/Bld) [Vol rate/Area] mL/min/{1.73_m2} Normal [facility] Comment on above: Result Comment: PERF ORMED BY: [place] [address] PATHOLOGIST HYPERBARIC TECH LIZANDRO HOFF M.D. Performed By: #### H EPATIC, ESR, CREAT, CBC #### [address] Creatinine [Mass/volume] in Serum or PlasmaOrdered By: Zhou Fischer on 05-02-2024 Creatinine [Mass/Vol] 0.79 mg/dL Normal 0.70-1.30 [facility] Comment on above: Performed By: #### H EPATIC, ESR, CREAT, CBC #### [facility] [address] [place] [address] Erythrocyte Sedimentation Ra pennie 05-02-2024 ESR (Bld) [Velocity] 7 mm/h Normal 0-19 [facility] Comment on above: Result Comment: PERF ORMED BY: [place] [address] PATHOLOGIST HYPERBARIC TECH JIANLAN SUN M.D. Performed By: #### H EPATIC, ESR, CREAT, CBC #### [facility] [address] [place] [address] Erythrocyte distribution wid th [Ratio] by Automated countOrdered By: Zhou Fischer on 05-02-2024 Erythrocyte distribution width (RBC) [Ratio] 13.6 % Normal 12.0-14.8 [facility] Comment on above: Performed By: #### H EPATIC, ESR, CREAT, CBC #### [address] Erythrocyte sedimentation ra te by Photometric methodOrdered By: Zhou Fischer on 05-02-2024 ESR Photometric method (Bld) [Velocity] 7 mm/hr 0-19 [facility] Erythrocytes [#/volume] in B lood by Automated countOrdered By: Zhou Fischer on 05-02-2024 RBC (Bld) [#/Vol] 4.56 10*6/uL Normal 3.90-5.60 [facility] Comment on above: Performed By: #### H EPATIC, ESR, CREAT, CBC #### [facility] [address] [place] [address] Hematocrit [Volume Fraction] of Blood by Automated countOrdered By: Zhou Fischer on 05-02-2024 Hematocrit (Bld) [Volume fraction] 41.9 % Normal 38.8-50.0 [facility] Comment on above: Performed By: #### H EPATIC, ESR, CREAT, CBC #### [facility] [address] [place] [address] Hemoglobin [Mass/volume] in BloodOrdered By: Zhou Fischer on 05-02-2024 Hemoglobin (Bld) [Mass/Vol] 14.6 g/dL Normal 13.0-17.0 [facility] Comment on above: Performed By: #### H EPATIC, ESR, CREAT, CBC #### [facility] [address] Hepatic Panelon 05-02-2024 Albumin [Mass/Vol] 4.4 g/dL Normal 3.5-5.7 [facility] Comment on above: Performed By: #### H EPATIC, ESR, CREAT, CBC #### [facility] [address] Bilirubin,Indirect 0.4 mg/dL Normal [facility] Comment on above: Performed By: #### H EPATIC, ESR, CREAT, CBC #### [facility] [address] Bilirubin.indirect [Mass/Vol] 0.10 mg/dL Normal 0.03-0.18 [facility] Comment on above: Performed By: #### H EPATIC, ESR, CREAT, CBC #### [address] Leukocytes [#/volume] correc basim for nucleated erythrocytes in Blood by Automated counOrdered By: Zhou Fischer on 05-02-2024 WBC corrected for nucl RBC Auto (Bld) [#/Vol] 5.3 10*3/uL 4.1-10.5 [facility] Leukocytes [#/volume] in Blo od by Automated countOrdered By: Zhou Fischer on 05-02-2024 WBC (Bld) [#/Vol] 5.3 10*3/uL Normal 4.1-10.5 [facility] Comment on above: Performed By: #### H EPATIC, ESR, CREAT, CBC #### [address] Lymphocytes [#/volume] in Bl ood by Automated countOrdered By: Zhou Fischer on 05-02-2024 Lymphocytes (Bld) [#/Vol] 1.6 10*3/uL Normal 1.00-4.8 [facility] Comment on above: Performed By: #### H EPATIC, ESR, CREAT, CBC #### [address] Lymphocytes/100 leukocytes i n Blood by Automated countOrdered By: Zhou Fischer on 05-02-2024 Lymphocytes/100 WBC (Bld) 29.9 % Normal . [facility] Comment on above: Performed By: #### H EPATIC, ESR, CREAT, CBC #### [facility] [address] [place] [address] MCH [Entitic mass] by Automa basim countOrdered By: Zhou Fischer on 05-02-2024 MCH (RBC) [Entitic mass] 31.9 pg Normal 27.5-35.2 [facility] Comment on above: Performed By: #### H EPATIC, ESR, CREAT, CBC #### [facility] [address] [place] [address] MCHC Auto (RBC) [Mass/Vol]Or dered By: Zhou Fischer on 05-02-2024 MCHC (RBC) [Mass/Vol] 34.8 g/dL 32.5-35.6 [facility] MCV [Entitic volume] by Auto mated countOrdered By: Zhou Fischer on 05-02-2024 MCV (RBC) [Entitic vol] 91.9 fL Normal 83.5-101 [facility] Comment on above: Performed By: #### H EPATIC, ESR, CREAT, CBC #### [facility] [address] [place] [address] Neutrophils [#/volume] in Bl ood by Automated countOrdered By: Zhou Fischer on 05-02-2024 Neutrophils (Bld) [#/Vol] 3.0 10*3/uL Normal 1.8-7.7 [facility] Comment on above: Performed By: #### H EPATIC, ESR, CREAT, CBC #### [facility] [address] [place] [address] No Panel InformationOrdered By: Zhou Fischer on 05-02-2024 Estimated GFR (CKD-EPI) > 60.0 mL/Min [facility] Creatinine Clearance (Chem N/A [facility] Nucleated erythrocytes [Pres ence] in Blood by Automated countOrdered By: Zhou Fischer on 05-02-2024 Nucleated RBC Auto Ql (Bld) 0.2 /100{WBC} 0-0.5 [facility] Platelet mean volume [Entiti c volume] in Blood by Automated countOrdered By: Zhou Fischer on 05-02-2024 Platelet mean volume (Bld) [Entitic vol] 8.4 fL Normal 6.6-10.1 [facility] Comment on above: Performed By: #### H EPATIC, ESR, CREAT, CBC #### [facility] [address] Platelets [#/volume] in Bloo d by Automated countOrdered By: Zhou Fischer on 05-02-2024 Platelets (Bld) [#/Vol] 313 10*3/uL Normal 150-450 [facility] Comment on above: Performed By: #### H EPATIC, ESR, CREAT, CBC #### [address] Protein [Mass/volume] in Ser um or PlasmaOrdered By: Zhou Fischer on 05-02-2024 Protein [Mass/Vol] 6.7 g/dL Normal 6.4-8.9 [facility] Comment on above: Performed By: #### H EPATIC, ESR, CREAT, CBC #### [address] Serum globulin measurement b y calculation (mass/volume)Ordered By: Zhou Fischer on 05-02-2024 Globulin (S) [Mass/Vol] 2.3 g/dL Normal [facility] Comment on above: Performed By: #### H EPATIC, ESR, CREAT, CBC #### [address] Serum or plasma albumin/glob ulin mass ratioOrdered By: Zhou Fischer on 05-02-2024 Albumin/Globulin [Mass ratio] 1.9 {ratio} Normal [facility] Comment on above: Performed By: #### H EPATIC, ESR, CREAT, CBC #### [address] Serum or plasma non-glucuron idated bilirubin measurement (mass/volume)Ordered By: Zhou Fischer on 05-02-2024 Bilirubin.indirect [Mass/Vol] 0.4 mg/dL [facility] Alanine aminotransferase [En zymatic activity/volume] in Serum or PlasmaOrdered By: Zhou Fischer on 03-16-2024 ALT [Catalytic activity/Vol] 21 U/L Normal 7-52 [facility] Comment on above: Performed By: #### C BC, CREAT, HEPATIC, ESR #### [facility] [address] Albumin [Mass/volume] in Ser um or Plasma by Bromocresol green (BCG) dye binding methoOrdered By: Zhou Fischer on 03-16-2024 Albumin BCG dye [Mass/Vol] 4.3 g/dL 3.5-5.7 [facility] Alkaline phosphatase [Enzyma tic activity/volume] in Serum or PlasmaOrdered By: Zhou Fischer on 03-16-2024 ALP [Catalytic activity/Vol] 70 U/L Normal 34-104 [facility] Comment on above: Performed By: #### C BC, CREAT, HEPATIC, ESR #### [address] Aspartate aminotransferase [ Enzymatic activity/volume] in Serum or PlasmaOrdered By: Zhou Fischer on 03-16-2024 AST [Catalytic activity/Vol] 20 U/L Normal 13-39 [facility] Comment on above: Performed By: #### C BC, CREAT, HEPATIC, ESR #### [address] Automated basophil %Ordered By: Zhou Fischer on 03-16-2024 Basophils/100 WBC (Bld) 0.9 % Normal . [facility] Comment on above: Performed By: #### C BC, CREAT, HEPATIC, ESR #### [address] Automated basophil countOrde red By: Zhou Fischer on 03-16-2024 Basophils (Bld) [#/Vol] 0.0 10*3/uL Normal 0.0-0.2 [facility] Comment on above: Performed By: #### C BC, CREAT, HEPATIC, ESR #### [place] [address] [place] Automated blood monocyte cou ntOrdered By: Zhou Fischer on 03-16-2024 Monocytes (Bld) [#/Vol] 0.4 10*3/uL Normal 0.0-0.8 [facility] Comment on above: Performed By: #### C BC, CREAT, HEPATIC, ESR #### [facility] [address] Automated eosinophil %Ordere d By: Zhou Fischer on 03-16-2024 Eosinophils/100 WBC (Bld) 2.8 % Normal . [facility] Comment on above: Performed By: #### C BC, CREAT, HEPATIC, ESR #### [facility] [address] Automated eosinophil countOr dered By: Zhou Fischer on 03-16-2024 Eosinophils (Bld) [#/Vol] 0.1 10*3/uL Normal 0.0-0.45 [facility] Comment on above: Performed By: #### C BC, CREAT, HEPATIC, ESR #### [facility] [address] Automated monocyte %Ordered By: Zhou Fischer on 03-16-2024 Monocytes/100 WBC (Bld) 9.1 % Normal . [facility] Comment on above: Performed By: #### C BC, CREAT, HEPATIC, ESR #### [facility] [address] Automated neutrophil %Ordere d By: Zhou Fischer on 03-16-2024 Neutrophils/100 WBC (Bld) 50.3 % Normal . [facility] Comment on above: Performed By: #### C BC, CREAT, HEPATIC, ESR #### [facility] [address] [place] [address] [place] Bilirubin.direct [Mass/volum e] in Serum or PlasmaOrdered By: Zhou Fischer on 03-16-2024 Bilirubin.direct [Mass/Vol] 0.10 mg/dL 0.03-0.18 [facility] Bilirubin.total [Mass/volume ] in Serum or PlasmaOrdered By: Zhou Fischer on 03-16-2024 Bilirubin [Mass/Vol] 0.7 mg/dL Normal 0.3-1.0 [facility] Comment on above: Performed By: #### C BC, CREAT, HEPATIC, ESR #### [address] Complete Blood Count Auto Di ffon 03-16-2024 Mean Corpuscular HGB Conc 34.0 g/dL Normal 32.5-35.6 [facility] Comment on above: Performed By: #### C BC, CREAT, HEPATIC, ESR #### [address] NRBC% 0.1 /100{WBC} Normal 0-0.5 [facility] Comment on above: Performed By: #### C BC, CREAT, HEPATIC, ESR #### [address] Creatinineon 03-16-2024 GFR/1.73 sq M.predicted MDRD (S/P/Bld) [Vol rate/Area] mL/min/{1.73_m2} Normal [facility] Comment on above: Result Comment: PERF ORMED BY: [place] [address] PATHOLOGIST HYPERBARIC TECH LIZANDRO HOFF M.D. Performed By: #### C BC, CREAT, HEPATIC, ESR #### [address] Creatinine [Mass/volume] in Serum or PlasmaOrdered By: Zhou Fischer on 03-16-2024 Creatinine [Mass/Vol] 0.85 mg/dL Normal 0.70-1.30 [facility] Comment on above: Performed By: #### C BC, CREAT, HEPATIC, ESR #### [address] Erythrocyte Sedimentation Ra pennie 03-16-2024 ESR (Bld) [Velocity] 4 mm/h Normal 0-19 [facility] Comment on above: Result Comment: PERF ORMED BY: [place] [address] PATHOLOGIST HYPERBARIC TECH LIZANDRO HOFF M.D. Performed By: #### C BC, CREAT, HEPATIC, ESR #### [address] Erythrocyte distribution wid th [Ratio] by Automated countOrdered By: Zhou Fischer on 03-16-2024 Erythrocyte distribution width (RBC) [Ratio] 13.9 % Normal 12.0-14.8 [facility] Comment on above: Performed By: #### C BC, CREAT, HEPATIC, ESR #### [address] Erythrocyte sedimentation ra te by Photometric methodOrdered By: Zhou Fischer on 03-16-2024 ESR Photometric method (Bld) [Velocity] 4 mm/hr 0-19 [facility] Erythrocytes [#/volume] in B lood by Automated countOrdered By: Zhou Fischer on 03-16-2024 RBC (Bld) [#/Vol] 4.50 10*6/uL Normal 3.90-5.60 [facility] Comment on above: Performed By: #### C BC, CREAT, HEPATIC, ESR #### [address] Hematocrit [Volume Fraction] of Blood by Automated countOrdered By: Zhou Fischer on 03-16-2024 Hematocrit (Bld) [Volume fraction] 42.1 % Normal 38.8-50.0 [facility] Comment on above: Performed By: #### C BC, CREAT, HEPATIC, ESR #### [address] Hemoglobin [Mass/volume] in BloodOrdered By: Zhou Fischer on 03-16-2024 Hemoglobin (Bld) [Mass/Vol] 14.3 g/dL Normal 13.0-17.0 [facility] Comment on above: Performed By: #### C BC, CREAT, HEPATIC, ESR #### [address] Hepatic Panelon 03-16-2024 Albumin [Mass/Vol] 4.3 g/dL Normal 3.5-5.7 [facility] Comment on above: Performed By: #### C BC, CREAT, HEPATIC, ESR #### [facility] [address] Bilirubin,Indirect 0.6 mg/dL Normal [facility] Comment on above: Performed By: #### C BC, CREAT, HEPATIC, ESR #### [facility] [address] Bilirubin.indirect [Mass/Vol] 0.10 mg/dL Normal 0.03-0.18 [facility] Comment on above: Performed By: #### C BC, CREAT, HEPATIC, ESR #### [facility] [address] Leukocytes [#/volume] correc basim for nucleated erythrocytes in Blood by Automated counOrdered By: Zhou Fischer on 03-16-2024 WBC corrected for nucl RBC Auto (Bld) [#/Vol] 4.6 10*3/uL 4.1-10.5 [facility] Leukocytes [#/volume] in Blo od by Automated countOrdered By: Zhou Fischer on 03-16-2024 WBC (Bld) [#/Vol] 4.6 10*3/uL Normal 4.1-10.5 [facility] Comment on above: Performed By: #### C BC, CREAT, HEPATIC, ESR #### [place] [address] [place] Lymphocytes [#/volume] in Bl ood by Automated countOrdered By: Zhou Fischer on 03-16-2024 Lymphocytes (Bld) [#/Vol] 1.7 10*3/uL Normal 1.00-4.8 [facility] Comment on above: Performed By: #### C BC, CREAT, HEPATIC, ESR #### [facility] [address] [place] [address] [place] Lymphocytes/100 leukocytes i n Blood by Automated countOrdered By: Zhou Fischer on 03-16-2024 Lymphocytes/100 WBC (Bld) 36.9 % Normal . [facility] Comment on above: Performed By: #### C BC, CREAT, HEPATIC, ESR #### [facility] [address] MCH [Entitic mass] by Automa basim countOrdered By: Zhou Fischer on 03-16-2024 MCH (RBC) [Entitic mass] 31.8 pg Normal 27.5-35.2 [facility] Comment on above: Performed By: #### C BC, CREAT, HEPATIC, ESR #### [facility] [address] [place] [address] MCHC Auto (RBC) [Mass/Vol]Or dered By: Zhou Fischer on 03-16-2024 MCHC (RBC) [Mass/Vol] 34.0 g/dL 32.5-35.6 [facility] MCV [Entitic volume] by Auto mated countOrdered By: Zhou Fischer on 03-16-2024 MCV (RBC) [Entitic vol] 93.5 fL Normal 83.5-101 [facility] Comment on above: Performed By: #### C BC, CREAT, HEPATIC, ESR #### [facility] [address] [place] [address] Neutrophils [#/volume] in Bl ood by Automated countOrdered By: Zhou Fischer on 03-16-2024 Neutrophils (Bld) [#/Vol] 2.3 10*3/uL Normal 1.8-7.7 [facility] Comment on above: Performed By: #### C BC, CREAT, HEPATIC, ESR #### [facility] [address] [place] [address] No Panel InformationOrdered By: Zhou Fischer on 03-16-2024 Estimated GFR (CKD-EPI) > 60.0 mL/Min [facility] Creatinine Clearance (Chem N/A [facility] Nucleated erythrocytes [Pres ence] in Blood by Automated countOrdered By: Zhou Fischer on 03-16-2024 Nucleated RBC Auto Ql (Bld) 0.1 /100{WBC} 0-0.5 [facility] Platelet mean volume [Entiti c volume] in Blood by Automated countOrdered By: Zhou Fischer on 03-16-2024 Platelet mean volume (Bld) [Entitic vol] 8.6 fL Normal 6.6-10.1 [facility] Comment on above: Performed By: #### C BC, CREAT, HEPATIC, ESR #### [facility] [address] Platelets [#/volume] in Bloo d by Automated countOrdered By: Zhou Fischer on 03-16-2024 Platelets (Bld) [#/Vol] 290 10*3/uL Normal 150-450 [facility] Comment on above: Performed By: #### C BC, CREAT, HEPATIC, ESR #### [facility] [address] Protein [Mass/volume] in Ser um or PlasmaOrdered By: Zhou Fischer on 03-16-2024 Protein [Mass/Vol] 6.4 g/dL Normal 6.4-8.9 [facility] Comment on above: Performed By: #### C BC, CREAT, HEPATIC, ESR #### [address] Serum globulin measurement b y calculation (mass/volume)Ordered By: Zhou Fischer on 03-16-2024 Globulin (S) [Mass/Vol] 2.1 g/dL Normal F [facility] Comment on above: Performed By: #### C BC, CREAT, HEPATIC, ESR #### [facility] [address] [place] [address] Serum or plasma albumin/glob ulin mass ratioOrdered By: Zhou Fischer on 03-16-2024 Albumin/Globulin [Mass ratio] 2.0 {ratio} Normal [facility] Comment on above: Performed By: #### C BC, CREAT, HEPATIC, ESR #### [address] Serum or plasma non-glucuron idated bilirubin measurement (mass/volume)Ordered By: Zhou Fischer on 03-16-2024 Bilirubin.indirect [Mass/Vol] 0.6 mg/dL [facility] Alanine aminotransferase [En zymatic activity/volume] in Serum or PlasmaOrdered By: Zhou Fischer on 12-28-2023 ALT [Catalytic activity/Vol] 24 U/L Normal 7-52 [facility] Comment on above: Performed By: #### C BC, CREAT, HEPATIC, ESR #### [facility] [address] [place] [address] [place] Albumin [Mass/volume] in Ser um or Plasma by Bromocresol green (BCG) dye binding methoOrdered By: Zhou Fischer on 12-28-2023 Albumin BCG dye [Mass/Vol] 4.4 g/dL 3.5-5.7 [facility] Alkaline phosphatase [Enzyma tic activity/volume] in Serum or PlasmaOrdered By: Zhou Fischer on 12-28-2023 ALP [Catalytic activity/Vol] 69 U/L Normal 34-104 [facility] Comment on above: Performed By: #### C BC, CREAT, HEPATIC, ESR #### [place] [address] [place] Aspartate aminotransferase [ Enzymatic activity/volume] in Serum or PlasmaOrdered By: Zhou Fischer on 12-28-2023 AST [Catalytic activity/Vol] 24 U/L Normal 13-39 [facility] Comment on above: Performed By: #### C BC, CREAT, HEPATIC, ESR #### [address] Automated basophil %Ordered By: Zhou Fischer on 12-28-2023 Basophils/100 WBC (Bld) 0.9 % Normal . [facility] Comment on above: Performed By: #### C BC, CREAT, HEPATIC, ESR #### [place] [address] [place] Automated basophil countOrde red By: Zhou Fischer on 12-28-2023 Basophils (Bld) [#/Vol] 0.0 10*3/uL Normal 0.0-0.2 [facility] Comment on above: Performed By: #### C BC, CREAT, HEPATIC, ESR #### [address] Automated blood monocyte cou ntOrdered By: Zhou Fischer on 12-28-2023 Monocytes (Bld) [#/Vol] 0.4 10*3/uL Normal 0.0-0.8 [facility] Comment on above: Performed By: #### C BC, CREAT, HEPATIC, ESR #### [facility] [address] Automated eosinophil %Ordere d By: Zhou Fischer on 12-28-2023 Eosinophils/100 WBC (Bld) 3.5 % Normal . [facility] Comment on above: Performed By: #### C BC, CREAT, HEPATIC, ESR #### [facility] [address] Automated eosinophil countOr dered By: Zhou Fischer on 12-28-2023 Eosinophils (Bld) [#/Vol] 0.2 10*3/uL Normal 0.0-0.45 [facility] Comment on above: Performed By: #### C BC, CREAT, HEPATIC, ESR #### [facility] [address] Automated monocyte %Ordered By: Zhou Fischer on 12-28-2023 Monocytes/100 WBC (Bld) 9.6 % Normal . [facility] Comment on above: Performed By: #### C BC, CREAT, HEPATIC, ESR #### [facility] [address] Automated neutrophil %Ordere d By: Zhou Fischer on 12-28-2023 Neutrophils/100 WBC (Bld) 50.7 % Normal . [facility] Comment on above: Performed By: #### C BC, CREAT, HEPATIC, ESR #### [facility] [address] [place] [address] Bilirubin.direct [Mass/volum e] in Serum or PlasmaOrdered By: Zhou Fischer on 12-28-2023 Bilirubin.direct [Mass/Vol] 0.10 mg/dL 0.03-0.18 [facility] Bilirubin.total [Mass/volume ] in Serum or PlasmaOrdered By: Zhou Fischer on 12-28-2023 Bilirubin [Mass/Vol] 0.7 mg/dL Normal 0.3-1.0 [facility] Comment on above: Performed By: #### C BC, CREAT, HEPATIC, ESR #### [address] Complete Blood Count Auto Di ffon 12-28-2023 Mean Corpuscular HGB Conc 34.7 g/dL Normal 32.5-35.6 [facility] Comment on above: Performed By: #### C BC, CREAT, HEPATIC, ESR #### [address] NRBC% 0.1 /100{WBC} Normal 0-0.5 [facility] Comment on above: Performed By: #### C BC, CREAT, HEPATIC, ESR #### [address] Creatinineon 12-28-2023 GFR/1.73 sq M.predicted MDRD (S/P/Bld) [Vol rate/Area] mL/min/{1.73_m2} Normal [facility] Comment on above: Result Comment: PERF ORMED BY: [place] [address] PATHOLOGIST HYPERBARIC TECH LIZANDRO HOFF M.D. Performed By: #### C BC, CREAT, HEPATIC, ESR #### [address] Creatinine [Mass/volume] in Serum or PlasmaOrdered By: Zhou Fischer on 12-28-2023 Creatinine [Mass/Vol] 0.84 mg/dL Normal 0.70-1.30 [facility] Comment on above: Performed By: #### C BC, CREAT, HEPATIC, ESR #### [facility] [address] [place] [address] Erythrocyte Sedimentation Ra pennie 12-28-2023 ESR (Bld) [Velocity] 5 mm/h Normal 0-19 [facility] Comment on above: Result Comment: PERF ORMED BY: [place] [address] PATHOLOGIST HYPERBARIC TECH LIZANDRO HOFF M.D. Performed By: #### C BC, CREAT, HEPATIC, ESR #### [facility] [address] Erythrocyte distribution wid th [Ratio] by Automated countOrdered By: Zhou Fischer on 12-28-2023 Erythrocyte distribution width (RBC) [Ratio] 13.8 % Normal 12.0-14.8 [facility] Comment on above: Performed By: #### C BC, CREAT, HEPATIC, ESR #### [facility] [address] Erythrocyte sedimentation ra te by Photometric methodOrdered By: Zhou Fischer on 12-28-2023 ESR Photometric method (Bld) [Velocity] 5 mm/hr 0-19 [facility] Erythrocytes [#/volume] in B lood by Automated countOrdered By: Zhou Fischer on 12-28-2023 RBC (Bld) [#/Vol] 4.47 10*6/uL Normal 3.90-5.60 [facility] Comment on above: Performed By: #### C BC, CREAT, HEPATIC, ESR #### [address] Hematocrit [Volume Fraction] of Blood by Automated countOrdered By: Zhou Fischer on 12-28-2023 Hematocrit (Bld) [Volume fraction] 41.4 % Normal 38.8-50.0 [facility] Comment on above: Performed By: #### C BC, CREAT, HEPATIC, ESR #### [address] Hemoglobin [Mass/volume] in BloodOrdered By: Zhou Fischer on 12-28-2023 Hemoglobin (Bld) [Mass/Vol] 14.4 g/dL Normal 13.0-17.0 [facility] Comment on above: Performed By: #### C BC, CREAT, HEPATIC, ESR #### [address] Hepatic Panelon 12-28-2023 Albumin [Mass/Vol] 4.4 g/dL Normal 3.5-5.7 [facility] Comment on above: Performed By: #### C BC, CREAT, HEPATIC, ESR #### [facility] [address] Bilirubin,Indirect 0.6 mg/dL Normal [facility] Comment on above: Performed By: #### C BC, CREAT, HEPATIC, ESR #### [facility] [address] Bilirubin.indirect [Mass/Vol] 0.10 mg/dL Normal 0.03-0.18 [facility] Comment on above: Performed By: #### C BC, CREAT, HEPATIC, ESR #### [facility] [address] Leukocytes [#/volume] correc basim for nucleated erythrocytes in Blood by Automated counOrdered By: Zhou Fischer on 12-28-2023 WBC corrected for nucl RBC Auto (Bld) [#/Vol] 4.4 10*3/uL 4.1-10.5 [facility] Leukocytes [#/volume] in Blo od by Automated countOrdered By: Zhou Fischer on 12-28-2023 WBC (Bld) [#/Vol] 4.4 10*3/uL Normal 4.1-10.5 [facility] Comment on above: Performed By: #### C BC, CREAT, HEPATIC, ESR #### [facility] [address] Lymphocytes [#/volume] in Bl ood by Automated countOrdered By: Zhou Fischer on 12-28-2023 Lymphocytes (Bld) [#/Vol] 1.6 10*3/uL Normal 1.00-4.8 [facility] Comment on above: Performed By: #### C BC, CREAT, HEPATIC, ESR #### [facility] [address] [place] [address] [place] Lymphocytes/100 leukocytes i n Blood by Automated countOrdered By: Zhou Fischer on 12-28-2023 Lymphocytes/100 WBC (Bld) 35.3 % Normal . [facility] Comment on above: Performed By: #### C BC, CREAT, HEPATIC, ESR #### [facility] [address] MCH [Entitic mass] by Automa basim countOrdered By: Zhou Fischer on 12-28-2023 MCH (RBC) [Entitic mass] 32.1 pg Normal 27.5-35.2 [facility] Comment on above: Performed By: #### C BC, CREAT, HEPATIC, ESR #### [facility] [address] [place] [address] MCHC Auto (RBC) [Mass/Vol]Or dered By: Zhou Fischer on 12-28-2023 MCHC (RBC) [Mass/Vol] 34.7 g/dL 32.5-35.6 [facility] MCV [Entitic volume] by Auto mated countOrdered By: Zhou Fischer on 12-28-2023 MCV (RBC) [Entitic vol] 92.6 fL Normal 83.5-101 [facility] Comment on above: Performed By: #### C BC, CREAT, HEPATIC, ESR #### [address] Neutrophils [#/volume] in Bl ood by Automated countOrdered By: Zhou Fischer on 12-28-2023 Neutrophils (Bld) [#/Vol] 2.2 10*3/uL Normal 1.8-7.7 [facility] Comment on above: Performed By: #### C BC, CREAT, HEPATIC, ESR #### [facility] [address] [place] [address] No Panel InformationOrdered By: Zhou Fischer on 12-28-2023 Estimated GFR (CKD-EPI) > 60.0 mL/Min [facility] Creatinine Clearance (Chem N/A [facility] Nucleated erythrocytes [Pres ence] in Blood by Automated countOrdered By: Zhou Fischer on 12-28-2023 Nucleated RBC Auto Ql (Bld) 0.1 /100{WBC} 0-0.5 [facility] Platelet mean volume [Entiti c volume] in Blood by Automated countOrdered By: Zhou Fischer on 12-28-2023 Platelet mean volume (Bld) [Entitic vol] 8.2 fL Normal 6.6-10.1 [facility] Comment on above: Performed By: #### C BC, CREAT, HEPATIC, ESR #### [address] Platelets [#/volume] in Bloo d by Automated countOrdered By: Zhou Fischer on 12-28-2023 Platelets (Bld) [#/Vol] 309 10*3/uL Normal 150-450 [facility] Comment on above: Performed By: #### C BC, CREAT, HEPATIC, ESR #### [address] Protein [Mass/volume] in Ser um or PlasmaOrdered By: Zhou Fischer on 12-28-2023 Protein [Mass/Vol] 6.8 g/dL Normal 6.4-8.9 [facility] Comment on above: Performed By: #### C BC, CREAT, HEPATIC, ESR #### [address] Serum globulin measurement b y calculation (mass/volume)Ordered By: Zhou Fischer on 12-28-2023 Globulin (S) [Mass/Vol] 2.4 g/dL Normal [facility] Comment on above: Performed By: #### C BC, CREAT, HEPATIC, ESR #### [address] Serum or plasma albumin/glob ulin mass ratioOrdered By: Zhou Fischer on 12-28-2023 Albumin/Globulin [Mass ratio] 1.8 {ratio} Normal [facility] Comment on above: Performed By: #### C BC, CREAT, HEPATIC, ESR #### [address] Serum or plasma non-glucuron idated bilirubin measurement (mass/volume)Ordered By: Zhou Fischer on 12-28-2023 Bilirubin.indirect [Mass/Vol] 0.6 mg/dL [facility] CNOVon 12-01-2023 CNOV Office Visit (UROSMN) ---- NOLANTIMUR HUERTA ([id number]) 1950 M Date Time Provider Department 12/01/23 2:30 PM NANCI CARVAJAL During your visit today, we recorded the following information about you: Anni Johnston LPN 12/01/2023 2:54 PM Signed Actual procedure/procedure scheduled: Yes Performing provider/scheduled provider: Yes Patient was roomed in: Q9- 09 Slip Filler offered:Patient declines Patient arrived in the room [...] Alert/Oriented Method of Instruction: Individual instruction Written instruction/Handout s Verbal instruction The Following Influencing Factors Were Barriers To This Education Session: None The Following Physical Limitations Were Barriers To This Education Session: None Instruction Provided To: Patient Typewriter Aligner Present: not applicable Discipline: Nursing Learning Topic: [...] 12 months MD Preston Bonilla Carissa R, LPN 12/01/2023 2:55 PM Signed UNIVERSAL PROTOCOL / [...] No r (more content not included)... Normal [facility] CYTOLOGY NON-GYNon CASE REPORT Normal [facility] Comment on above: Order Comment: Speci men Type: URINE SPECIMEN Ordering Facility: [facility] Address: [address] [place] [address] Result Comment: [facility] Cytology Report Case: [id number] Authorizing Provider: Nanci Carvajal MD Collected: 12/01/2023 02:53 PM Ordering Location: Urology Received: 12/01/2023 06:21 PM Pathologist: Dilshad Lombardo MD Specimen: Urine, Midstream Performed By: #### C YTONON #### [facility] CLIA [id number] [address] [place] [address] [place] [facility] CLINICAL HISTORY hx of bladder cancer Normal [facility] Comment on above: Order Comment: Speci men Type: URINE SPECIMEN Ordering Facility: [facility] Address: [address] [place] [address] Performed By: #### C YTONON #### [facility] CLIA [id number] [address] [place] [address] [place] FINAL DIAGNOSIS Normal [facility] Comment on above: Order Comment: Speci men Type: URINE SPECIMEN Ordering Facility: [facility] Address: [address] [place] [address] Result Comment: A - Urine, Voided: Suspicious for high-grade urothelial carcinoma. Performed By: #### C YTONON #### [facility] CLIA [id number] [address] [place] [address] [place] FINAL PERFORMING LAB Normal [facility] Comment on above: Order Comment: Speci men Type: URINE SPECIMEN Ordering Facility: [facility] Address: [address] [place] [address] Result Comment: Tech nical component, hydraulic pile hammer operator screening performed at [facility], [address] [place] [address] CLIA# [id number] Diagnostic interpretation performed at [facility], [address] [place] [address] CLIA# [id number] [place] Administrator: Reid Monteiro M.D. Performed By: #### C YTONON #### [facility] CLIA [id number] [address] [place], [place] [address] [place] [address] [place] GROSS DESCRIPTION Normal [facility] Comment on above: Order Comment: Speci men Type: URINE SPECIMEN Ordering Facility: [facility] Address: [address] [place] [address] Result Comment: A. U rine, Midstream 80 cc clear yellow fluid . ThinPrep prepared. Performed By: #### C YTONON #### [facility] CLIA [id number] [address] [place], [place] [address] [place] [address] [place] UA DIP, URINE (POC)on 2023 BILIRUBIN UA (POCT) Negative Negative [facility] CLARITY UA (POCT) Clear [facility] COLOR UA (POCT) Yellow [facility] GLUCOSE UA (POCT) Negative Negative mg/dL [facility] Hemoglobin Ql (U) Negative Negative [facility] KETONE UA (POCT) Negative Negative mg/dL [facility] LEUKOCYTES UA (POCT) Negative Negative [facility] NITRITE UA (POCT) Negative Negative [facility] PH UA (POCT) 7.0 4.5 - 8.0 [facility] Protein Ql (U) Negative Negative mg/dL [facility] SPECIFIC GRAVITY UA (POCT) 1.015 1.005 - 1.030 [facility] UROBILINOGEN UA (POCT) 0.2 [place] E.U./dL [facility] Location:[facility], [address] [place] [address] POINT OF CARE [facility] Alanine aminotransferase [En zymatic activity/volume] in Serum or PlasmaOrdered By: Zhou Fischer on 10-29-2023 ALT [Catalytic activity/Vol] 20 U/L Normal 7-52 [facility] Comment on above: Performed By: #### C BC, CREAT, HEPATIC, ESR #### [facility] [address] Albumin [Mass/volume] in Ser um or Plasma by Bromocresol green (BCG) dye binding methoOrdered By: Zhou Fischer on 10-29-2023 Albumin BCG dye [Mass/Vol] 4.5 g/dL 3.5-5.7 [facility] Alkaline phosphatase [Enzyma tic activity/volume] in Serum or PlasmaOrdered By: Zhou Fischer on 10-29-2023 ALP [Catalytic activity/Vol] 75 U/L Normal 34-104 [facility] Comment on above: Performed By: #### C BC, CREAT, HEPATIC, ESR #### [address] Aspartate aminotransferase [ Enzymatic activity/volume] in Serum or PlasmaOrdered By: Zhou Fischer on 10-29-2023 AST [Catalytic activity/Vol] 25 U/L Normal 13-39 [facility] Comment on above: Performed By: #### C BC, CREAT, HEPATIC, ESR #### [address] Automated basophil %Ordered By: Zhou Fischer on 10-29-2023 Basophils/100 WBC (Bld) 1.0 % Normal . [facility] Comment on above: Performed By: #### C BC, CREAT, HEPATIC, ESR #### [address] Automated basophil countOrde red By: Zhou Fischer on 10-29-2023 Basophils (Bld) [#/Vol] 0.0 10*3/uL Normal 0.0-0.2 [facility] Comment on above: Performed By: #### C BC, CREAT, HEPATIC, ESR #### [address] Automated blood monocyte cou ntOrdered By: Zhou Fischer on 10-29-2023 Monocytes (Bld) [#/Vol] 0.6 10*3/uL Normal 0.0-0.8 [facility] Comment on above: Performed By: #### C BC, CREAT, HEPATIC, ESR #### [facility] [address] Automated eosinophil %Ordere d By: Zhou Fischer on 10-29-2023 Eosinophils/100 WBC (Bld) 2.4 % Normal . [facility] Comment on above: Performed By: #### C BC, CREAT, HEPATIC, ESR #### [address] Automated eosinophil countOr dered By: Zhou Fischer on 10-29-2023 Eosinophils (Bld) [#/Vol] 0.1 10*3/uL Normal 0.0-0.45 [facility] Comment on above: Performed By: #### C BC, CREAT, HEPATIC, ESR #### [address] Automated monocyte %Ordered By: Zhou Fischer on 10-29-2023 Monocytes/100 WBC (Bld) 11.4 % Normal . [facility] Comment on above: Performed By: #### C BC, CREAT, HEPATIC, ESR #### [address] Automated neutrophil %Ordere d By: Zhou Fischer on 10-29-2023 Neutrophils/100 WBC (Bld) 51.7 % Normal . [facility] Comment on above: Performed By: #### C BC, CREAT, HEPATIC, ESR #### [facility] [address] [place] [address] Bilirubin.direct [Mass/volum e] in Serum or PlasmaOrdered By: Zhou Fischer on 10-29-2023 Bilirubin.direct [Mass/Vol] 0.10 mg/dL 0.03-0.18 [facility] Bilirubin.total [Mass/volume ] in Serum or PlasmaOrdered By: Zhou Fischer on 10-29-2023 Bilirubin [Mass/Vol] 0.7 mg/dL Normal 0.3-1.0 [facility] Comment on above: Performed By: #### C BC, CREAT, HEPATIC, ESR #### [address] Complete Blood Count Auto Di ffon 10-29-2023 Mean Corpuscular HGB Conc 34.5 g/dL Normal 32.5-35.6 [facility] Comment on above: Performed By: #### C BC, CREAT, HEPATIC, ESR #### [address] NRBC% 0.2 /100{WBC} Normal 0-0.5 [facility] Comment on above: Performed By: #### C BC, CREAT, HEPATIC, ESR #### [address] Creatinineon 10-29-2023 GFR/1.73 sq M.predicted MDRD (S/P/Bld) [Vol rate/Area] mL/min/{1.73_m2} Normal [facility] Comment on above: Result Comment: PERF ORMED BY: [place] [address] PATHOLOGIST HYPERBARIC TECH LIZANDRO HOFF M.D. Performed By: #### C BC, CREAT, HEPATIC, ESR #### [address] Creatinine [Mass/volume] in Serum or PlasmaOrdered By: Zhou Fischer on 10-29-2023 Creatinine [Mass/Vol] 0.83 mg/dL Normal 0.70-1.30 [facility] Comment on above: Performed By: #### C BC, CREAT, HEPATIC, ESR #### [address] Erythrocyte Sedimentation Ra pennie 10-29-2023 ESR (Bld) [Velocity] 3 mm/h Normal 0-19 [facility] Comment on above: Result Comment: PERF ORMED BY: [place] [address] PATHOLOGIST HYPERBARIC TECH LIZANDRO HOFF M.D. Performed By: #### C BC, CREAT, HEPATIC, ESR #### [address] Erythrocyte distribution wid th [Ratio] by Automated countOrdered By: Zhou Fischer on 10-29-2023 Erythrocyte distribution width (RBC) [Ratio] 14.2 % Normal 12.0-14.8 [facility] Comment on above: Performed By: #### C BC, CREAT, HEPATIC, ESR #### [address] Erythrocyte sedimentation ra te by Photometric methodOrdered By: Zhou Fischer on 10-29-2023 ESR Photometric method (Bld) [Velocity] 3 mm/hr 0-19 [facility] Erythrocytes [#/volume] in B lood by Automated countOrdered By: Zhou Fischer on 10-29-2023 RBC (Bld) [#/Vol] 4.43 10*6/uL Normal 3.90-5.60 [facility] Comment on above: Performed By: #### C BC, CREAT, HEPATIC, ESR #### [address] Hematocrit [Volume Fraction] of Blood by Automated countOrdered By: Zhou Fischer on 10-29-2023 Hematocrit (Bld) [Volume fraction] 40.8 % Normal 38.8-50.0 [facility] Comment on above: Performed By: #### C BC, CREAT, HEPATIC, ESR #### [address] Hemoglobin [Mass/volume] in BloodOrdered By: Zhou Fischer on 10-29-2023 Hemoglobin (Bld) [Mass/Vol] 14.1 g/dL Normal 13.0-17.0 [facility] Comment on above: Performed By: #### C BC, CREAT, HEPATIC, ESR #### [address] Hepatic Panelon 10-29-2023 Albumin [Mass/Vol] 4.5 g/dL Normal 3.5-5.7 [facility] Comment on above: Performed By: #### C BC, CREAT, HEPATIC, ESR #### [facility] [address] Bilirubin,Indirect 0.6 mg/dL Normal [facility] Comment on above: Performed By: #### C BC, CREAT, HEPATIC, ESR #### [facility] [address] Bilirubin.indirect [Mass/Vol] 0.10 mg/dL Normal 0.03-0.18 [facility] Comment on above: Performed By: #### C BC, CREAT, HEPATIC, ESR #### [address] Leukocytes [#/volume] correc basim for nucleated erythrocytes in Blood by Automated counOrdered By: Zhou Fischer on 10-29-2023 WBC corrected for nucl RBC Auto (Bld) [#/Vol] 4.9 10*3/uL 4.1-10.5 [facility] Leukocytes [#/volume] in Blo od by Automated countOrdered By: Zhou Fischer on 10-29-2023 WBC (Bld) [#/Vol] 4.9 10*3/uL Normal 4.1-10.5 [facility] Comment on above: Performed By: #### C BC, CREAT, HEPATIC, ESR #### [facility] [address] [place] [address] [place] Lymphocytes [#/volume] in Bl ood by Automated countOrdered By: Zhou Fischer on 10-29-2023 Lymphocytes (Bld) [#/Vol] 1.6 10*3/uL Normal 1.00-4.8 [facility] Comment on above: Performed By: #### C BC, CREAT, HEPATIC, ESR #### [place] [address] [place] Lymphocytes/100 leukocytes i n Blood by Automated countOrdered By: Zhou Fischer on 10-29-2023 Lymphocytes/100 WBC (Bld) 33.5 % Normal . [facility] Comment on above: Performed By: #### C BC, CREAT, HEPATIC, ESR #### [facility] [address] [place] [address] MCH [Entitic mass] by Automa basim countOrdered By: Zhou Fischer on 10-29-2023 MCH (RBC) [Entitic mass] 31.8 pg Normal 27.5-35.2 [facility] Comment on above: Performed By: #### C BC, CREAT, HEPATIC, ESR #### [facility] [address] [place] [address] MCHC Auto (RBC) [Mass/Vol]Or dered By: Zhou Fischer on 10-29-2023 MCHC (RBC) [Mass/Vol] 34.5 g/dL 32.5-35.6 [facility] MCV [Entitic volume] by Auto mated countOrdered By: Zhou Fischer on 10-29-2023 MCV (RBC) [Entitic vol] 92.1 fL Normal 83.5-101 [facility] Comment on above: Performed By: #### C BC, CREAT, HEPATIC, ESR #### [facility] [address] [place] [address] Neutrophils [#/volume] in Bl ood by Automated countOrdered By: Zhou Fischer on 10-29-2023 Neutrophils (Bld) [#/Vol] 2.5 10*3/uL Normal 1.8-7.7 [facility] Comment on above: Performed By: #### C BC, CREAT, HEPATIC, ESR #### [facility] [address] [place] [address] No Panel InformationOrdered By: Zhou Fischer on 10-29-2023 Estimated GFR (CKD-EPI) > 60.0 mL/Min [facility] Creatinine Clearance (Chem N/A [facility] Nucleated erythrocytes [Pres ence] in Blood by Automated countOrdered By: Zhou Fischer on 10-29-2023 Nucleated RBC Auto Ql (Bld) 0.2 /100{WBC} 0-0.5 [facility] Platelet mean volume [Entiti c volume] in Blood by Automated countOrdered By: Zhou Fischer on 10-29-2023 Platelet mean volume (Bld) [Entitic vol] 8.3 fL Normal 6.6-10.1 [facility] Comment on above: Performed By: #### C BC, CREAT, HEPATIC, ESR #### [facility] [address] Platelets [#/volume] in Bloo d by Automated countOrdered By: Zhou Fischer on 10-29-2023 Platelets (Bld) [#/Vol] 324 10*3/uL Normal 150-450 [facility] Comment on above: Performed By: #### C BC, CREAT, HEPATIC, ESR #### [address] Protein [Mass/volume] in Ser um or PlasmaOrdered By: Zhou Fischer on 10-29-2023 Protein [Mass/Vol] 6.6 g/dL Normal 6.4-8.9 [facility] Comment on above: Performed By: #### C BC, CREAT, HEPATIC, ESR #### [address] Serum globulin measurement b y calculation (mass/volume)Ordered By: Zhou Fischer on 10-29-2023 Globulin (S) [Mass/Vol] 2.1 g/dL Normal [facility] Comment on above: Performed By: #### C BC, CREAT, HEPATIC, ESR #### [facility] [address] [place] [address] Serum or plasma albumin/glob ulin mass ratioOrdered By: Zhou Fischer on 10-29-2023 Albumin/Globulin [Mass ratio] 2.1 {ratio} Normal [facility] Comment on above: Performed By: #### C BC, CREAT, HEPATIC, ESR #### [address] Serum or plasma non-glucuron idated bilirubin measurement (mass/volume)Ordered By: Zhou Fischer on 10-29-2023 Bilirubin.indirect [Mass/Vol] 0.6 mg/dL [facility] ECG 12 [place]on 10-20-2023 Atrial Rate [facility] P [place] [facility] P-R Interval [facility] Q-T Interval [facility] Q-T Interval (corrected) [facility] QRS Duration [facility] QTC Calculation (Bezet) [facility] [place] [facility] T [place] [facility] Ventricular Rate [facility] th [facility] Alanine aminotransferase [En zymatic activity/volume] in Serum or PlasmaOrdered By: Zhou Fischer on 07-21-2023 ALT [Catalytic activity/Vol] 26 U/L Normal 7-52 [facility] Comment on above: Performed By: #### C BC, CREAT, HEPATIC, ESR #### [facility] [address] Albumin [Mass/volume] in Ser um or Plasma by Bromocresol green (BCG) dye binding methoOrdered By: Zhou Fischer on 07-21-2023 Albumin BCG dye [Mass/Vol] 4.4 g/dL 3.5-5.7 [facility] Alkaline phosphatase [Enzyma tic activity/volume] in Serum or PlasmaOrdered By: Zhou Fischer on 07-21-2023 ALP [Catalytic activity/Vol] 69 U/L Normal 34-104 [facility] Comment on above: Performed By: #### C BC, CREAT, HEPATIC, ESR #### [facility] [address] [place] [address] [place] Aspartate aminotransferase [ Enzymatic activity/volume] in Serum or PlasmaOrdered By: Zhou Fischer on 07-21-2023 AST [Catalytic activity/Vol] 23 U/L Normal 13-39 [facility] Comment on above: Performed By: #### C BC, CREAT, HEPATIC, ESR #### [facility] [address] [place] [address] [place] Automated basophil %Ordered By: Zhou Fischer on 07-21-2023 Basophils/100 WBC (Bld) 0.7 % Normal . [facility] Comment on above: Performed By: #### C BC, CREAT, HEPATIC, ESR #### [facility] [address] [place] [id number] [place] Automated basophil countOrde red By: Zhou Fischer on 07-21-2023 Basophils (Bld) [#/Vol] 0.0 10*3/uL Normal 0.0-0.2 [facility] Comment on above: Performed By: #### C BC, CREAT, HEPATIC, ESR #### [facility] [address] [place] [address] Automated blood monocyte cou ntOrdered By: Zhou Fischer on 07-21-2023 Monocytes (Bld) [#/Vol] 0.4 10*3/uL Normal 0.0-0.8 [facility] Comment on above: Performed By: #### C BC, CREAT, HEPATIC, ESR #### [address] Automated eosinophil %Ordere d By: Zhou Fischer on 07-21-2023 Eosinophils/100 WBC (Bld) 1.9 % Normal . [facility] Comment on above: Performed By: #### C BC, CREAT, HEPATIC, ESR #### [address] Automated eosinophil countOr dered By: Zhou Fischer on 07-21-2023 Eosinophils (Bld) [#/Vol] 0.1 10*3/uL Normal 0.0-0.45 [facility] Comment on above: Performed By: #### C BC, CREAT, HEPATIC, ESR #### [address] Automated monocyte %Ordered By: Zhou Fischer on 07-21-2023 Monocytes/100 WBC (Bld) 7.5 % Normal . [facility] Comment on above: Performed By: #### C BC, CREAT, HEPATIC, ESR #### [address] Automated neutrophil %Ordere d By: Zhou Fischer on 07-21-2023 Neutrophils/100 WBC (Bld) 63.5 % Normal . [facility] Comment on above: Performed By: #### C BC, CREAT, HEPATIC, ESR #### [facility] [address] [place] [address] Bilirubin.direct [Mass/volum e] in Serum or PlasmaOrdered By: Zhou Fischer on 07-21-2023 Bilirubin.direct [Mass/Vol] 0.10 mg/dL 0.03-0.18 [facility] Bilirubin.total [Mass/volume ] in Serum or PlasmaOrdered By: Zhou Fischer on 07-21-2023 Bilirubin [Mass/Vol] 0.5 mg/dL Normal 0.3-1.0 [facility] Comment on above: Performed By: #### C BC, CREAT, HEPATIC, ESR #### [facility] [address] Complete Blood Count Auto Di ffon 07-21-2023 Mean Corpuscular HGB Conc 34.8 g/dL Normal 32.5-35.6 [facility] Comment on above: Performed By: #### C BC, CREAT, HEPATIC, ESR #### [address] NRBC% 0.2 /100{WBC} Normal 0-0.5 [facility] Comment on above: Performed By: #### C BC, CREAT, HEPATIC, ESR #### [address] Creatinineon 07-21-2023 GFR/1.73 sq M.predicted MDRD (S/P/Bld) [Vol rate/Area] mL/min/{1.73_m2} Normal [facility] Comment on above: Result Comment: PERF ORMED BY: [place] [address] PATHOLOGIST HYPERBARIC TECH LIZANDRO HOFF M.D. Performed By: #### C BC, CREAT, HEPATIC, ESR #### [address] Creatinine [Mass/volume] in Serum or PlasmaOrdered By: Zhou Fischer on 07-21-2023 Creatinine [Mass/Vol] 0.94 mg/dL Normal 0.70-1.30 [facility] Comment on above: Performed By: #### C BC, CREAT, HEPATIC, ESR #### [address] Erythrocyte Sedimentation Ra pennie 07-21-2023 ESR (Bld) [Velocity] 2 mm/h Normal 0-19 [facility] Comment on above: Result Comment: PERF ORMED BY: [place] [address] PATHOLOGIST HYPERBARIC TECH LIZANDRO HOFF M.D. Performed By: #### C BC, CREAT, HEPATIC, ESR #### [address] Erythrocyte distribution wid th [Ratio] by Automated countOrdered By: Zhou Fischer on 07-21-2023 Erythrocyte distribution width (RBC) [Ratio] 13.7 % Normal 12.0-14.8 [facility] Comment on above: Performed By: #### C BC, CREAT, HEPATIC, ESR #### [address] Erythrocyte sedimentation ra te by Photometric methodOrdered By: Zhou Fischer on 07-21-2023 ESR Photometric method (Bld) [Velocity] 2 mm/hr 0-19 [facility] Erythrocytes [#/volume] in B lood by Automated countOrdered By: Zhou Fischer on 07-21-2023 RBC (Bld) [#/Vol] 4.39 10*6/uL Normal 3.90-5.60 [facility] Comment on above: Performed By: #### C BC, CREAT, HEPATIC, ESR #### [address] Hematocrit [Volume Fraction] of Blood by Automated countOrdered By: Zhou Fischer on 07-21-2023 Hematocrit (Bld) [Volume fraction] 40.1 % Normal 38.8-50.0 [facility] Comment on above: Performed By: #### C BC, CREAT, HEPATIC, ESR #### [address] Hemoglobin [Mass/volume] in BloodOrdered By: Zhou Fischer on 07-21-2023 Hemoglobin (Bld) [Mass/Vol] 14.0 g/dL Normal 13.0-17.0 [facility] Comment on above: Performed By: #### C BC, CREAT, HEPATIC, ESR #### [facility] [address] Hepatic Panelon 07-21-2023 Albumin [Mass/Vol] 4.4 g/dL Normal 3.5-5.7 [facility] Comment on above: Performed By: #### C BC, CREAT, HEPATIC, ESR #### [address] Bilirubin,Indirect 0.4 mg/dL Normal [facility] Comment on above: Performed By: #### C BC, CREAT, HEPATIC, ESR #### [address] Bilirubin.indirect [Mass/Vol] 0.10 mg/dL Normal 0.03-0.18 [facility] Comment on above: Performed By: #### C BC, CREAT, HEPATIC, ESR #### [address] Leukocytes [#/volume] correc basim for nucleated erythrocytes in Blood by Automated counOrdered By: Zhou Fischer on 07-21-2023 WBC corrected for nucl RBC Auto (Bld) [#/Vol] 5.5 10*3/uL 4.1-10.5 [facility] Leukocytes [#/volume] in Blo od by Automated countOrdered By: Zhou Fischer on 07-21-2023 WBC (Bld) [#/Vol] 5.5 10*3/uL Normal 4.1-10.5 [facility] Comment on above: Performed By: #### C BC, CREAT, HEPATIC, ESR #### [facility] [address] [place] [address] Lymphocytes [#/volume] in Bl ood by Automated countOrdered By: Zhou Fischer on 07-21-2023 Lymphocytes (Bld) [#/Vol] 1.5 10*3/uL Normal 1.00-4.8 [facility] Comment on above: Performed By: #### C BC, CREAT, HEPATIC, ESR #### [facility] [address] [place] [address] Lymphocytes/100 leukocytes i n Blood by Automated countOrdered By: Zhou Fischer on 07-21-2023 Lymphocytes/100 WBC (Bld) 26.4 % Normal . [facility] Comment on above: Performed By: #### C BC, CREAT, HEPATIC, ESR #### [address] MCH [Entitic mass] by Automa basim countOrdered By: Zhou Fischer on 07-21-2023 MCH (RBC) [Entitic mass] 31.8 pg Normal 27.5-35.2 [facility] Comment on above: Performed By: #### C BC, CRETAVO, HEPATIC, ESR #### [address] MCHC Auto (RBC) [Mass/Vol]Or dered By: Zhou Fischer on 07-21-2023 MCHC (RBC) [Mass/Vol] 34.8 g/dL 32.5-35.6 [facility] MCV [Entitic volume] by Auto mated countOrdered By: Zhou Fischer on 07-21-2023 MCV (RBC) [Entitic vol] 91.4 fL Normal 83.5-101 [facility] Comment on above: Performed By: #### C BC, CRETAVO, HEPATIC, ESR #### [address] Neutrophils [#/volume] in Bl ood by Automated countOrdered By: Zhou Fischer on 07-21-2023 Neutrophils (Bld) [#/Vol] 3.5 10*3/uL Normal 1.8-7.7 [facility] Comment on above: Performed By: #### C BC, CRETAVO, HEPATIC, ESR #### [address] No Panel InformationOrdered By: Zhou Fischer on 07-21-2023 Estimated GFR (CKD-EPI) > 60.0 mL/Min [facility] Creatinine Clearance (Chem N/A [facility] Nucleated erythrocytes [Pres ence] in Blood by Automated countOrdered By: Zhou Fischer on 07-21-2023 Nucleated RBC Auto Ql (Bld) 0.2 /100{WBC} 0-0.5 [facility] Platelet mean volume [Entiti c volume] in Blood by Automated countOrdered By: Zhou Fischer on 07-21-2023 Platelet mean volume (Bld) [Entitic vol] 8.3 fL Normal 6.6-10.1 [facility] Comment on above: Performed By: #### C BC, CREAT, HEPATIC, ESR #### [address] Platelets [#/volume] in Bloo d by Automated countOrdered By: Zhou Fischer on 07-21-2023 Platelets (Bld) [#/Vol] 312 10*3/uL Normal 150-450 [facility] Comment on above: Performed By: #### C BC, CREAT, HEPATIC, ESR #### [address] Protein [Mass/volume] in Ser um or PlasmaOrdered By: Zhou Fischer on 07-21-2023 Protein [Mass/Vol] 6.7 g/dL Normal 6.4-8.9 [facility] Comment on above: Performed By: #### C BC, CREAT, HEPATIC, ESR #### [address] Serum globulin measurement b y calculation (mass/volume)Ordered By: Zhou Fischer on 07-21-2023 Globulin (S) [Mass/Vol] 2.3 g/dL Normal [facility] Comment on above: Performed By: #### C BC, CREAT, HEPATIC, ESR #### [address] Serum or plasma albumin/glob ulin mass ratioOrdered By: Zhou Fischer on 07-21-2023 Albumin/Globulin [Mass ratio] 1.9 {ratio} Normal [facility] Comment on above: Performed By: #### C BC, CREAT, HEPATIC, ESR #### [place] [id number] [place] Serum or plasma non-glucuron idated bilirubin measurement (mass/volume)Ordered By: Zhou Fischer on 07-21-2023 Bilirubin.indirect [Mass/Vol] 0.4 mg/dL [facility] CREATININE, BLOOD (POC)on Creatinine [Mass/Vol] 0.80 mg/dL 0.7 - 1.4 mg/dL [facility] eGFR (POCT) [facility] CT UROGRAM WO/W IVCONon 12-0 [facility] Alanine aminotransferase [En zymatic activity/volume] in Serum or PlasmaOrdered By: Zhou Fischer on 05-25-2023 ALT [Catalytic activity/Vol] 36 U/L Normal 7-52 [facility] Comment on above: Performed By: #### C BC, ESR, HEPATIC, CREAT #### [address] Albumin [Mass/volume] in Ser um or Plasma by Bromocresol green (BCG) dye binding methoOrdered By: Zhou Fischer on 05-25-2023 Albumin BCG dye [Mass/Vol] 4.5 g/dL 3.5-5.7 [facility] Alkaline phosphatase [Enzyma tic activity/volume] in Serum or PlasmaOrdered By: Zhou Fischer on 05-25-2023 ALP [Catalytic activity/Vol] 66 U/L Normal 34-104 [facility] Comment on above: Performed By: #### C BC, ESR, HEPATIC, CREAT #### [facility] [address] Aspartate aminotransferase [ Enzymatic activity/volume] in Serum or PlasmaOrdered By: Zhou Fischer on 05-25-2023 AST [Catalytic activity/Vol] 25 U/L Normal 13-39 [facility] Comment on above: Performed By: #### C BC, ESR, HEPATIC, CREAT #### [facility] [address] [place] [address] [place] Automated basophil %Ordered By: Zhou Fischer on 05-25-2023 Basophils/100 WBC (Bld) 0.7 % Normal . [facility] Comment on above: Performed By: #### C BC, CREAT, HEPATIC, ESR #### [address] Automated basophil countOrde red By: Zhou Meyertra on 05-25-2023 Basophils (Bld) [#/Vol] 0.0 10*3/uL Normal 0.0-0.2 [facility] Comment on above: Performed By: #### C BC, CREAT, HEPATIC, ESR #### [address] Automated blood monocyte cou ntOrdered By: Zhou Fischer on 05-25-2023 Monocytes (Bld) [#/Vol] 0.5 10*3/uL Normal 0.0-0.8 [facility] Comment on above: Performed By: #### C BC, CREAT, HEPATIC, ESR #### [address] Automated eosinophil %Ordere d By: Zhou Fischer on 05-25-2023 Eosinophils/100 WBC (Bld) 2.4 % Normal . [facility] Comment on above: Performed By: #### C BC, CREAT, HEPATIC, ESR #### [address] Automated eosinophil countOr dered By: Zhou Fischer on 05-25-2023 Eosinophils (Bld) [#/Vol] 0.1 10*3/uL Normal 0.0-0.45 [facility] Comment on above: Performed By: #### C BC, CREAT, HEPATIC, ESR #### [address] Automated monocyte %Ordered By: Zhou Fischer on 05-25-2023 Monocytes/100 WBC (Bld) 9.6 % Normal . [facility] Comment on above: Performed By: #### C BC, CREAT, HEPATIC, ESR #### [address] Automated neutrophil %Ordere d By: Zhou Fischer on 05-25-2023 Neutrophils/100 WBC (Bld) 59.5 % Normal . [facility] Comment on above: Performed By: #### C BC, CREAT, HEPATIC, ESR #### [address] Bilirubin.direct [Mass/volum e] in Serum or PlasmaOrdered By: Zhou Fischer on 05-25-2023 Bilirubin.direct [Mass/Vol] 0.10 mg/dL 0.03-0.18 [facility] Bilirubin.total [Mass/volume ] in Serum or PlasmaOrdered By: Zhou Fischer on 05-25-2023 Bilirubin [Mass/Vol] 0.5 mg/dL Normal 0.3-1.0 [facility] Comment on above: Performed By: #### C BC, ESR, HEPATIC, CREAT #### [address] Complete Blood Count Auto Di ffon 05-25-2023 Mean Corpuscular HGB Conc 34.1 g/dL Normal 32.5-35.6 [facility] Comment on above: Performed By: #### C BC, CREAT, HEPATIC, ESR #### [address] NRBC% 0.2 /100{WBC} Normal 0-0.5 [facility] Comment on above: Performed By: #### C BC, CREAT, HEPATIC, ESR #### [address] Creatinineon 05-25-2023 GFR/1.73 sq M.predicted MDRD (S/P/Bld) [Vol rate/Area] mL/min/{1.73_m2} Normal [facility] Comment on above: Result Comment: PERF ORMED BY: [place] [address] PATHOLOGIST HYPERBARIC TECH LIZANDRO HOFF M.D. Performed By: #### C BC, ESR, HEPATIC, CREAT #### [address] Creatinine [Mass/volume] in Serum or PlasmaOrdered By: Zhou Fischer on 05-25-2023 Creatinine [Mass/Vol] 0.91 mg/dL Normal 0.70-1.30 [facility] Comment on above: Performed By: #### C BC, ESR, HEPATIC, CREAT #### [address] Erythrocyte Sedimentation Ra pennie 05-25-2023 ESR (Bld) [Velocity] 2 mm/h Normal 0-19 [facility] Comment on above: Result Comment: PERF ORMED BY: [place] [address] PATHOLOGIST HYPERBARIC TECH LIZANDRO HOFF M.D. Performed By: #### C BC, CREAT, HEPATIC, ESR #### [address] Erythrocyte distribution wid th [Ratio] by Automated countOrdered By: Zhou Fischer on 05-25-2023 Erythrocyte distribution width (RBC) [Ratio] 13.8 % Normal 12.0-14.8 [facility] Comment on above: Performed By: #### C BC, CREAT, HEPATIC, ESR #### [address] Erythrocyte sedimentation ra te by Photometric methodOrdered By: Zhou Fischer on 05-25-2023 ESR Photometric method (Bld) [Velocity] 2 mm/hr 0-19 [facility] Erythrocytes [#/volume] in B lood by Automated countOrdered By: Zhou Fischer on 05-25-2023 RBC (Bld) [#/Vol] 4.52 10*6/uL Normal 3.90-5.60 [facility] Comment on above: Performed By: #### C BC, CREAT, HEPATIC, ESR #### [address] Hematocrit [Volume Fraction] of Blood by Automated countOrdered By: Zhou Fischer on 05-25-2023 Hematocrit (Bld) [Volume fraction] 41.8 % Normal 38.8-50.0 [facility] Comment on above: Performed By: #### C BC, CREAT, HEPATIC, ESR #### [address] Hemoglobin [Mass/volume] in BloodOrdered By: Zhou Fischer on 05-25-2023 Hemoglobin (Bld) [Mass/Vol] 14.3 g/dL Normal 13.0-17.0 [facility] Comment on above: Performed By: #### C BC, CREAT, HEPATIC, ESR #### [address] Hepatic Panelon 05-25-2023 Albumin [Mass/Vol] 4.5 g/dL Normal 3.5-5.7 [facility] Comment on above: Performed By: #### C BC, ESR, HEPATIC, CREAT #### [address] Bilirubin,Indirect 0.4 mg/dL Normal [facility] Comment on above: Performed By: #### C BC, ESR, HEPATIC, CREAT #### [address] Bilirubin.indirect [Mass/Vol] 0.10 mg/dL Normal 0.03-0.18 [facility] Comment on above: Performed By: #### C BC, ESR, HEPATIC, CREAT #### [address] Leukocytes [#/volume] correc basim for nucleated erythrocytes in Blood by Automated counOrdered By: Zhou Fischer on 05-25-2023 WBC corrected for nucl RBC Auto (Bld) [#/Vol] 5.2 10*3/uL 4.1-10.5 [facility] Leukocytes [#/volume] in Blo od by Automated countOrdered By: Zhou Fischer on 05-25-2023 WBC (Bld) [#/Vol] 5.2 10*3/uL Normal 4.1-10.5 [facility] Comment on above: Performed By: #### C BC, CREAT, HEPATIC, ESR #### [address] Lymphocytes [#/volume] in Bl ood by Automated countOrdered By: Zhou Fischer on 05-25-2023 Lymphocytes (Bld) [#/Vol] 1.5 10*3/uL Normal 1.00-4.8 [facility] Comment on above: Performed By: #### C BC, CREAT, HEPATIC, ESR #### [address] Lymphocytes/100 leukocytes i n Blood by Automated countOrdered By: Zhou Fischer on 05-25-2023 Lymphocytes/100 WBC (Bld) 27.8 % Normal . [facility] Comment on above: Performed By: #### C BC, CREAT, HEPATIC, ESR #### [address] MCH [Entitic mass] by Automa basim countOrdered By: Zhou Fischer on 05-25-2023 MCH (RBC) [Entitic mass] 31.5 pg Normal 27.5-35.2 [facility] Comment on above: Performed By: #### C BC, CREAT, HEPATIC, ESR #### [address] MCHC Auto (RBC) [Mass/Vol]Or dered By: Zhou Fischer on 05-25-2023 MCHC (RBC) [Mass/Vol] 34.1 g/dL 32.5-35.6 [facility] MCV [Entitic volume] by Auto mated countOrdered By: Zhou Fischer on 05-25-2023 MCV (RBC) [Entitic vol] 92.4 fL Normal 83.5-101 [facility] Comment on above: Performed By: #### C BC, CREAT, HEPATIC, ESR #### [address] Neutrophils [#/volume] in Bl ood by Automated countOrdered By: Zhou Fischer on 05-25-2023 Neutrophils (Bld) [#/Vol] 3.1 10*3/uL Normal 1.8-7.7 [facility] Comment on above: Performed By: #### C BC, CREAT, HEPATIC, ESR #### [address] No Panel InformationOrdered By: Zhou Fischer on 05-25-2023 Estimated GFR (CKD-EPI) > 60.0 mL/Min [facility] Creatinine Clearance (Chem N/A [facility] Nucleated erythrocytes [Pres ence] in Blood by Automated countOrdered By: Zhou Fischer on 05-25-2023 Nucleated RBC Auto Ql (Bld) 0.2 /100{WBC} 0-0.5 [facility] Platelet mean volume [Entiti c volume] in Blood by Automated countOrdered By: Zhou Fischer on 05-25-2023 Platelet mean volume (Bld) [Entitic vol] 8.5 fL Normal 6.6-10.1 [facility] Comment on above: Performed By: #### C BC, CREAT, HEPATIC, ESR #### [facility] [address] [place] [address] Platelets [#/volume] in Bloo d by Automated countOrdered By: Zhou Fischer on 05-25-2023 Platelets (Bld) [#/Vol] 309 10*3/uL Normal 150-450 [facility] Comment on above: Performed By: #### C BC, CREAT, HEPATIC, ESR #### [facility] [address] [place] [address] Protein [Mass/volume] in Ser um or PlasmaOrdered By: Zhou Fischer on 05-25-2023 Protein [Mass/Vol] 6.7 g/dL Normal 6.4-8.9 [facility] Comment on above: Performed By: #### C BC, ESR, HEPATIC, CREAT #### [facility] [address] [place] [address] Serum globulin measurement b y calculation (mass/volume)Ordered By: Zhou Fischer on 05-25-2023 Globulin (S) [Mass/Vol] 2.2 g/dL Normal [facility] Comment on above: Performed By: #### C BC, ESR, HEPATIC, CREAT #### [address] Serum or plasma albumin/glob ulin mass ratioOrdered By: Zhou Fischer on 05-25-2023 Albumin/Globulin [Mass ratio] 2.0 {ratio} Normal [facility] Comment on above: Performed By: #### C BC, ESR, HEPATIC, CREAT #### [facility] [address] Serum or plasma non-glucuron idated bilirubin measurement (mass/volume)Ordered By: Zhou Fischer on 05-25-2023 Bilirubin.indirect [Mass/Vol] 0.4 mg/dL [facility] Alanine aminotransferase [En zymatic activity/volume] in Serum or PlasmaOrdered By: Zhou Fischer on 03-17-2023 ALT [Catalytic activity/Vol] 26 U/L 7-52 [facility] Albumin [Mass/volume] in Ser um or Plasma by Bromocresol green (BCG) dye binding methoOrdered By: Zhou Fischer on 03-17-2023 Albumin BCG dye [Mass/Vol] 4.4 g/dL 3.5-5.7 [facility] Alkaline phosphatase [Enzyma tic activity/volume] in Serum or PlasmaOrdered By: Zhou Fischer on 03-17-2023 ALP [Catalytic activity/Vol] 74 U/L 34-104 [facility] Aspartate aminotransferase [ Enzymatic activity/volume] in Serum or PlasmaOrdered By: Zhou Fischer on 03-17-2023 AST [Catalytic activity/Vol] 21 U/L 13-39 [facility] Basophils Auto (Bld) [#/Vol] Ordered By: Zhou Fischer on 03-17-2023 Basophils (Bld) [#/Vol] 0.0 10*3/uL 0.0-0.2 [facility] Basophils/100 WBC Auto (Bld) Ordered By: Zhou Fischer on 03-17-2023 Basophils/100 WBC (Bld) 0.7 % . [facility] Bilirubin.direct [Mass/volum e] in Serum or PlasmaOrdered By: Zhou Fischer on 03-17-2023 Bilirubin.direct [Mass/Vol] 0.10 mg/dL 0.03-0.18 [facility] Bilirubin.total [Mass/volume ] in Serum or PlasmaOrdered By: Zhou Fischer on 03-17-2023 Bilirubin [Mass/Vol] 0.5 mg/dL 0.3-1.0 [facility] Creatinine [Mass/volume] in Serum or PlasmaOrdered By: Zhou Fischer on 03-17-2023 Creatinine [Mass/Vol] 0.89 mg/dL 0.70-1.30 [facility] Eosinophils Auto (Bld) [#/Vo l]Ordered By: Zhou Fischer on 03-17-2023 Eosinophils (Bld) [#/Vol] 0.1 10*3/uL 0.0-0.45 [facility] Eosinophils/100 WBC Auto (Bl d)Ordered By: Zhou Fischer on 03-17-2023 Eosinophils/100 WBC (Bld) 2.0 % . [facility] Erythrocyte distribution wid th Auto (RBC) [Ratio]Ordered By: Zhou Fischer on 03-17-2023 Erythrocyte distribution width (RBC) [Ratio] 14.1 % 12.0-14.8 [facility] Erythrocyte sedimentation ra te by Photometric methodOrdered By: Zhou Fischer on 03-17-2023 ESR Photometric method (Bld) [Velocity] 5 mm/hr [facility] Globulin Calc (S) [Mass/Vol] Ordered By: Zhou Fischer on 03-17-2023 Globulin (S) [Mass/Vol] 2.4 g/dL [facility] Hematocrit Auto (Bld) [Volum e fraction]Ordered By: Zhou Fischer on 03-17-2023 Hematocrit (Bld) [Volume fraction] 41.8 % 38.8-50.0 [facility] Hemoglobin [Mass/volume] in BloodOrdered By: Zhou Fischer on 03-17-2023 Hemoglobin (Bld) [Mass/Vol] 14.4 g/dL 13.0-17.0 [facility] Leukocytes [#/volume] correc basim for nucleated erythrocytes in Blood by Automated counOrdered By: Zhou Fischer on 03-17-2023 WBC corrected for nucl RBC Auto (Bld) [#/Vol] 5.2 10*3/uL 4.1-10.5 [facility] Lymphocytes Auto (Bld) [#/Vo l]Ordered By: Zhou Fischer on 03-17-2023 Lymphocytes (Bld) [#/Vol] 1.4 10*3/uL 1.00-4.8 [facility] Lymphocytes/100 WBC Auto (Bl d)Ordered By: Zhou Fischer on 03-17-2023 Lymphocytes/100 WBC (Bld) 27.2 % . [facility] MCH Auto (RBC) [Entitic mass ]Ordered By: Zhou Fischer on 03-17-2023 MCH (RBC) [Entitic mass] 31.3 pg 27.5-35.2 [facility] MCHC Auto (RBC) [Mass/Vol]Or dered By: Zhou Fischer on 03-17-2023 MCHC (RBC) [Mass/Vol] 34.3 g/dL 32.5-35.[address] [facility] MCV Auto (RBC) [Entitic vol] Ordered By: Zhou Fischer on 03-17-2023 MCV (RBC) [Entitic vol] 91.1 fL 83.5-101 [facility] Monocytes Auto (Bld) [#/Vol] Ordered By: Zhou Fischer on 03-17-2023 Monocytes (Bld) [#/Vol] 0.4 10*3/uL 0.0-0.8 [facility] Monocytes/100 WBC Auto (Bld) Ordered By: Zhou Fischer on 03-17-2023 Monocytes/100 WBC (Bld) 8.0 % . [facility] Neutrophils Auto (Bld) [#/Vo l]Ordered By: Zhou Fischer on 03-17-2023 Neutrophils (Bld) [#/Vol] 3.2 10*3/uL 1.8-7.7 [facility] Neutrophils/100 WBC Auto (Bl d)Ordered By: Zhou Fischer on 03-17-2023 Neutrophils/100 WBC (Bld) 62.1 % . [facility] No Panel InformationOrdered By: Zhou Fischer on 03-17-2023 Estimated GFR (CKD-EPI) > 60.0 mL/Min [facility] Creatinine Clearance (Chem N/A [facility] Nucleated erythrocytes [Pres ence] in Blood by Automated countOrdered By: Zhou Fischer on 03-17-2023 Nucleated RBC Auto Ql (Bld) 0.0 /100{WBC} 0-0.5 [facility] Platelet mean volume Auto (B ld) [Entitic vol]Ordered By: Zhou Fischer on 03-17-2023 Platelet mean volume (Bld) [Entitic vol] 8.4 fL 6.6-10.1 [facility] Platelets Auto (Bld) [#/Vol] Ordered By: Zhou Fischer on 03-17-2023 Platelets (Bld) [#/Vol] 326 10*3/uL 150-450 [facility] Protein [Mass/volume] in Ser um or PlasmaOrdered By: Zhou Fischer on 03-17-2023 Protein [Mass/Vol] 6.8 g/dL 6.4-8.9 [facility] RBC Auto (Bld) [#/Vol]Ordere d By: Zhou Fischer on 03-17-2023 RBC (Bld) [#/Vol] 4.59 10*6/uL 3.90-5.60 [facility] Serum or plasma albumin/glob ulin mass ratioOrdered By: Zhou Fischer on 03-17-2023 Albumin/Globulin [Mass ratio] 1.8 {ratio} [facility] Serum or plasma non-glucuron idated bilirubin measurement (mass/volume)Ordered By: Zhou Fischer on 03-17-2023 Bilirubin.indirect [Mass/Vol] 0.4 mg/dL [facility] WBC Auto (Bld) [#/Vol]Ordere d By: Zhou Fischer on 03-17-2023 WBC (Bld) [#/Vol] 5.2 10*3/uL 4.1-10.5 [facility] Alanine aminotransferase [En zymatic activity/volume] in Serum or PlasmaOrdered By: Zhou Fischer on 02-24-2023 ALT [Catalytic activity/Vol] 42 U/L 7-52 [facility] Albumin [Mass/volume] in Ser um or Plasma by Bromocresol green (BCG) dye binding methoOrdered By: Zhou Fischer on 02-24-2023 Albumin BCG dye [Mass/Vol] 4.6 g/dL 3.5-5.7 [facility] Alkaline phosphatase [Enzyma tic activity/volume] in Serum or PlasmaOrdered By: Zhou Fischer on 02-24-2023 ALP [Catalytic activity/Vol] 66 U/L 34-104 [facility] Aspartate aminotransferase [ Enzymatic activity/volume] in Serum or PlasmaOrdered By: Zhou Fischer on 02-24-2023 AST [Catalytic activity/Vol] 31 U/L 13-39 [facility] Basophils Auto (Bld) [#/Vol] Ordered By: Zhou Fischer on 02-24-2023 Basophils (Bld) [#/Vol] 0.0 10*3/uL 0.0-0.2 [facility] Basophils/100 WBC Auto (Bld) Ordered By: Zhou Fischer on 02-24-2023 Basophils/100 WBC (Bld) 0.6 % . [facility] Bilirubin.direct [Mass/volum e] in Serum or PlasmaOrdered By: Zhou Fischer on 02-24-2023 Bilirubin.direct [Mass/Vol] 0.10 mg/dL 0.03-0.18 [facility] Bilirubin.total [Mass/volume ] in Serum or PlasmaOrdered By: Zhou Fischer on 02-24-2023 Bilirubin [Mass/Vol] 0.6 mg/dL 0.3-1.0 [facility] Creatinine [Mass/volume] in Serum or PlasmaOrdered By: Zhou Fischer on 02-24-2023 Creatinine [Mass/Vol] 0.89 mg/dL 0.70-1.30 [facility] Eosinophils Auto (Bld) [#/Vo l]Ordered By: Zhou Fischer on 02-24-2023 Eosinophils (Bld) [#/Vol] 0.1 10*3/uL 0.0-0.45 [facility] Eosinophils/100 WBC Auto (Bl d)Ordered By: Zhou Fischer on 02-24-2023 Eosinophils/100 WBC (Bld) 2.8 % . [facility] Erythrocyte distribution wid th Auto (RBC) [Ratio]Ordered By: Zhou Fischer on 02-24-2023 Erythrocyte distribution width (RBC) [Ratio] 14.3 % 12.0-14.8 [facility] Erythrocyte sedimentation ra te by Photometric methodOrdered By: Zhou Fischer on 02-24-2023 ESR Photometric method (Bld) [Velocity] 4 mm/hr 0-19 [facility] Globulin Calc (S) [Mass/Vol] Ordered By: Zhou Fischer on 02-24-2023 Globulin (S) [Mass/Vol] 2.5 g/dL [facility] Hematocrit Auto (Bld) [Volum e fraction]Ordered By: Zhou Fischer on 02-24-2023 Hematocrit (Bld) [Volume fraction] 42.4 % 38.8-50.0 [facility] Hemoglobin [Mass/volume] in BloodOrdered By: Zhou Fischer on 02-24-2023 Hemoglobin (Bld) [Mass/Vol] 14.3 g/dL 13.0-17.0 [facility] Leukocytes [#/volume] correc basim for nucleated erythrocytes in Blood by Automated counOrdered By: Zhou Fischer on 02-24-2023 WBC corrected for nucl RBC Auto (Bld) [#/Vol] 5.2 10*3/uL 4.1-10.5 [facility] Lymphocytes Auto (Bld) [#/Vo l]Ordered By: Zhou Fischer on 02-24-2023 Lymphocytes (Bld) [#/Vol] 1.7 10*3/uL 1.00-4.8 [facility] Lymphocytes/100 WBC Auto (Bl d)Ordered By: Zhou Fischer on 02-24-2023 Lymphocytes/100 WBC (Bld) 32.9 % . [facility] MCH Auto (RBC) [Entitic mass ]Ordered By: Zhou Fischer on 02-24-2023 MCH (RBC) [Entitic mass] 30.9 pg 27.5-35.2 [facility] MCHC Auto (RBC) [Mass/Vol]Or dered By: Zhou Fischer on 02-24-2023 MCHC (RBC) [Mass/Vol] 33.7 g/dL 32.5-35.6 [facility] MCV Auto (RBC) [Entitic vol] Ordered By: Zhou Fischer on 02-24-2023 MCV (RBC) [Entitic vol] 91.8 fL 83.5-101 [facility] Monocytes Auto (Bld) [#/Vol] Ordered By: Zhou Fischer on 02-24-2023 Monocytes (Bld) [#/Vol] 0.5 10*3/uL 0.0-0.8 [facility] Monocytes/100 WBC Auto (Bld) Ordered By: Zhou Fischer on 02-24-2023 Monocytes/100 WBC (Bld) 9.2 % . [facility] Neutrophils Auto (Bld) [#/Vo l]Ordered By: Zhou Fischer on 02-24-2023 Neutrophils (Bld) [#/Vol] 2.8 10*3/uL 1.8-7.7 [facility] Neutrophils/100 WBC Auto (Bl d)Ordered By: Zhou Fischer on 02-24-2023 Neutrophils/100 WBC (Bld) 54.5 % . [facility] No Panel InformationOrdered By: Zhou Fischer on 02-24-2023 Estimated GFR (CKD-EPI) > 60.0 mL/Min [facility] Creatinine Clearance (Chem N/A [facility] Nucleated erythrocytes [Pres ence] in Blood by Automated countOrdered By: Zhou Fischer on 02-24-2023 Nucleated RBC Auto Ql (Bld) 0.1 /100{WBC} 0-0.5 [facility] Platelet mean volume Auto (B ld) [Entitic vol]Ordered By: Zhou Fischer on 02-24-2023 Platelet mean volume (Bld) [Entitic vol] 8.6 fL 6.6-10.1 [facility] Platelets Auto (Bld) [#/Vol] Ordered By: Zhou Fischer on 02-24-2023 Platelets (Bld) [#/Vol] 304 10*3/uL 150-450 [facility] Protein [Mass/volume] in Ser um or PlasmaOrdered By: Zhou Fischer on 02-24-2023 Protein [Mass/Vol] 7.1 g/dL 6.4-8.9 [facility] RBC Auto (Bld) [#/Vol]Ordere d By: Zhou Fischer on 02-24-2023 RBC (Bld) [#/Vol] 4.62 10*6/uL 3.90-5.60 [facility] Serum or plasma albumin/glob ulin mass ratioOrdered By: Zhou Fischer on 02-24-2023 Albumin/Globulin [Mass ratio] 1.8 {ratio} [facility] Serum or plasma non-glucuron idated bilirubin measurement (mass/volume)Ordered By: Zhou Fischer on 02-24-2023 Bilirubin.indirect [Mass/Vol] 0.5 mg/dL [facility] WBC Auto (Bld) [#/Vol]Ordere d By: Zhou Fischer on 02-24-2023 WBC (Bld) [#/Vol] 5.2 10*3/uL 4.1-10.5 [facility] Alanine aminotransferase [En zymatic activity/volume] in Serum or PlasmaOrdered By: Zhou Fischer on 01-26-2023 ALT [Catalytic activity/Vol] 33 U/L 7-52 [facility] Albumin [Mass/volume] in Ser um or Plasma by Bromocresol green (BCG) dye binding methoOrdered By: Zhou Fischer on 01-26-2023 Albumin BCG dye [Mass/Vol] 4.3 g/dL 3.5-5.7 [facility] Alkaline phosphatase [Enzyma tic activity/volume] in Serum or PlasmaOrdered By: Zhou Fischer on 01-26-2023 ALP [Catalytic activity/Vol] 70 U/L 34-104 [facility] Aspartate aminotransferase [ Enzymatic activity/volume] in Serum or PlasmaOrdered By: Zhou Fischer on 01-26-2023 AST [Catalytic activity/Vol] 24 U/L 13-39 [facility] Basophils Auto (Bld) [#/Vol] Ordered By: Zhou Fischer on 01-26-2023 Basophils (Bld) [#/Vol] 0.0 10*3/uL 0.0-0.2 [facility] Basophils/100 WBC Auto (Bld) Ordered By: Zhou Fischer on 01-26-2023 Basophils/100 WBC (Bld) 0.7 % . [facility] Bilirubin.direct [Mass/volum e] in Serum or PlasmaOrdered By: Zhou Fischer on 01-26-2023 Bilirubin.direct [Mass/Vol] 0.10 mg/dL 0.03-0.18 [facility] Bilirubin.total [Mass/volume ] in Serum or PlasmaOrdered By: Zhou Fischer on 01-26-2023 Bilirubin [Mass/Vol] 0.5 mg/dL 0.3-1.0 [facility] Creatinine [Mass/volume] in Serum or PlasmaOrdered By: Zhou Fischer on 01-26-2023 Creatinine [Mass/Vol] 0.83 mg/dL 0.70-1.30 [facility] Eosinophils Auto (Bld) [#/Vo l]Ordered By: Zhou Fischer on 01-26-2023 Eosinophils (Bld) [#/Vol] 0.1 10*3/uL 0.0-0.45 [facility] Eosinophils/100 WBC Auto (Bl d)Ordered By: Zhou Fischer on 01-26-2023 Eosinophils/100 WBC (Bld) 2.5 % . [facility] Erythrocyte distribution wid th Auto (RBC) [Ratio]Ordered By: Zhou Fischer on 01-26-2023 Erythrocyte distribution width (RBC) [Ratio] 13.7 % 12.0-14.8 [facility] Erythrocyte sedimentation ra te by Photometric methodOrdered By: Zhou Fischer on 01-26-2023 ESR Photometric method (Bld) [Velocity] 4 mm/hr 0-19 [facility] Globulin Calc (S) [Mass/Vol] Ordered By: Zhou Fischer 01-26-2023 Globulin (S) [Mass/Vol] 2.3 g/dL [facility] Hematocrit Auto (Bld) [Volum e fraction]Ordered By: Zhou Fischer on 01-26-2023 Hematocrit (Bld) [Volume fraction] 41.1 % 38.8-50.0 [facility] Hemoglobin [Mass/volume] in BloodOrdered By: Zhou Fischer on 01-26-2023 Hemoglobin (Bld) [Mass/Vol] 14.3 g/dL 13.0-17.0 [facility] Leukocytes [#/volume] correc basim for nucleated erythrocytes in Blood by Automated counOrdered By: Zhou Fischer on 01-26-2023 WBC corrected for nucl RBC Auto (Bld) [#/Vol] 5.6 10*3/uL 4.1-10.5 [facility] Lymphocytes Auto (Bld) [#/Vo l]Ordered By: Zhou Fischer on 01-26-2023 Lymphocytes (Bld) [#/Vol] 1.7 10*3/uL 1.00-4.8 [facility] Lymphocytes/100 WBC Auto (Bl d)Ordered By: Zhou Fischer on 01-26-2023 Lymphocytes/100 WBC (Bld) 29.7 % . [facility] MCH Auto (RBC) [Entitic mass ]Ordered By: Zhou Fischer on 01-26-2023 MCH (RBC) [Entitic mass] 31.1 pg 27.5-35.2 [facility] MCHC Auto (RBC) [Mass/Vol]Or dered By: Zhou Fischer on 01-26-2023 MCHC (RBC) [Mass/Vol] 34.9 g/dL 32.5-35.[address] [facility] MCV Auto (RBC) [Entitic vol] Ordered By: Zhou Fischer on 01-26-2023 MCV (RBC) [Entitic vol] 89.2 fL 83.5-101 [facility] Monocytes Auto (Bld) [#/Vol] Ordered By: Zhou Fischer on 01-26-2023 Monocytes (Bld) [#/Vol] 0.5 10*3/uL 0.0-0.8 [facility] Monocytes/100 WBC Auto (Bld) Ordered By: Zhou Fischer on 01-26-2023 Monocytes/100 WBC (Bld) 8.7 % . [facility] Neutrophils Auto (Bld) [#/Vo l]Ordered By: Zhou Fischer on 01-26-2023 Neutrophils (Bld) [#/Vol] 3.3 10*3/uL 1.8-7.7 [facility] Neutrophils/100 WBC Auto (Bl d)Ordered By: Zhou Fischer on 01-26-2023 Neutrophils/100 WBC (Bld) 58.4 % . [facility] No Panel InformationOrdered By: Zhou Fischer on 01-26-2023 Estimated GFR (CKD-EPI) > 60.0 mL/Min [facility] Creatinine Clearance (Chem N/A [facility] Nucleated erythrocytes [Pres ence] in Blood by Automated countOrdered By: Zhou Fischer on 01-26-2023 Nucleated RBC Auto Ql (Bld) 0.1 /100{WBC} 0-0.5 [facility] Platelet mean volume Auto (B ld) [Entitic vol]Ordered By: Zhou Fischer on 01-26-2023 Platelet mean volume (Bld) [Entitic vol] 8.3 fL 6.6-10.1 [facility] Platelets Auto (Bld) [#/Vol] Ordered By: Zhou Fischer on 01-26-2023 Platelets (Bld) [#/Vol] 288 10*3/uL 150-450 [facility] Protein [Mass/volume] in Ser um or PlasmaOrdered By: Zhou Fischer on 01-26-2023 Protein [Mass/Vol] 6.6 g/dL 6.4-8.9 [facility] RBC Auto (Bld) [#/Vol]Ordere d By: Zhou Fischer on 01-26-2023 RBC (Bld) [#/Vol] 4.61 10*6/uL 3.90-5.60 [facility] Serum or plasma albumin/glob ulin mass ratioOrdered By: Zhou Fischer on 01-26-2023 Albumin/Globulin [Mass ratio] 1.9 {ratio} [facility] Serum or plasma non-glucuron idated bilirubin measurement (mass/volume)Ordered By: Zhou Fischer on 01-26-2023 Bilirubin.indirect [Mass/Vol] 0.4 mg/dL [facility] WBC Auto (Bld) [#/Vol]Ordere d By: Zhou Fischer on 01-26-2023 WBC (Bld) [#/Vol] 5.6 10*3/uL 4.1-10.5 [facility] Alanine aminotransferase [En zymatic activity/volume] in Serum or PlasmaOrdered By: hZou Fischer on 01-12-2023 ALT [Catalytic activity/Vol] 40 U/L 7-52 [facility] Albumin [Mass/volume] in Ser um or Plasma by Bromocresol green (BCG) dye binding methoOrdered By: Zhou Fischer on 01-12-2023 Albumin BCG dye [Mass/Vol] 4.4 g/dL 3.5-5.7 [facility] Alkaline phosphatase [Enzyma tic activity/volume] in Serum or PlasmaOrdered By: Zhou Fischer on 01-12-2023 ALP [Catalytic activity/Vol] 69 U/L 34-104 [facility] Aspartate aminotransferase [ Enzymatic activity/volume] in Serum or PlasmaOrdered By: Zhou Fischer on 01-12-2023 AST [Catalytic activity/Vol] 27 U/L 13-39 [facility] Basophils Auto (Bld) [#/Vol] Ordered By: Zhou Fischer on 01-12-2023 Basophils (Bld) [#/Vol] 0.0 10*3/uL 0.0-0.2 [facility] Basophils/100 WBC Auto (Bld) Ordered By: Zhou Fischer on 01-12-2023 Basophils/100 WBC (Bld) 0.6 % . [facility] Bilirubin.direct [Mass/volum e] in Serum or PlasmaOrdered By: Zhou Fischer on 01-12-2023 Bilirubin.direct [Mass/Vol] 0.10 mg/dL 0.03-0.18 [facility] Bilirubin.total [Mass/volume ] in Serum or PlasmaOrdered By: Zhou Fischer on 01-12-2023 Bilirubin [Mass/Vol] 0.6 mg/dL 0.3-1.0 [facility] Creatinine [Mass/volume] in Serum or PlasmaOrdered By: Zhou Fischer on 01-12-2023 Creatinine [Mass/Vol] 0.94 mg/dL 0.70-1.30 [facility] Eosinophils Auto (Bld) [#/Vo l]Ordered By: Zhou Fischer on 01-12-2023 Eosinophils (Bld) [#/Vol] 0.1 10*3/uL 0.0-0.45 [facility] Eosinophils/100 WBC Auto (Bl d)Ordered By: Zhou Fischer on 01-12-2023 Eosinophils/100 WBC (Bld) 2.3 % . [facility] Erythrocyte distribution wid th Auto (RBC) [Ratio]Ordered By: Zhou Fischer on 01-12-2023 Erythrocyte distribution width (RBC) [Ratio] 13.5 % 12.0-14.8 [facility] Erythrocyte sedimentation ra te by Photometric methodOrdered By: Zhou Fischer on 01-12-2023 ESR Photometric method (Bld) [Velocity] 5 mm/hr 0-19 [facility] Globulin Calc (S) [Mass/Vol] Ordered By: Zhou Fischer on 01-12-2023 Globulin (S) [Mass/Vol] 2.5 g/dL [facility] Hematocrit Auto (Bld) [Volum e fraction]Ordered By: Zhou Fischer on 01-12-2023 Hematocrit (Bld) [Volume fraction] 41.6 % 38.8-50.0 [facility] Hemoglobin [Mass/volume] in BloodOrdered By: Zhou Fischer on 01-12-2023 Hemoglobin (Bld) [Mass/Vol] 14.4 g/dL 13.0-17.0 [facility] Leukocytes [#/volume] correc basim for nucleated erythrocytes in Blood by Automated counOrdered By: Zhou Fischer on 01-12-2023 WBC corrected for nucl RBC Auto (Bld) [#/Vol] 5.5 10*3/uL 4.1-10.5 [facility] Lymphocytes Auto (Bld) [#/Vo l]Ordered By: Zhou Fischer on 01-12-2023 Lymphocytes (Bld) [#/Vol] 1.4 10*3/uL 1.00-4.8 [facility] Lymphocytes/100 WBC Auto (Bl d)Ordered By: Zhou Fischer on 01-12-2023 Lymphocytes/100 WBC (Bld) 25.3 % . [facility] MCH Auto (RBC) [Entitic mass ]Ordered By: Zhou Fischer on 01-12-2023 MCH (RBC) [Entitic mass] 30.9 pg 27.5-35.2 [facility] MCHC Auto (RBC) [Mass/Vol]Or dered By: Zhou Fischer on 01-12-2023 MCHC (RBC) [Mass/Vol] 34.5 g/dL 32.5-35.6 [facility] MCV Auto (RBC) [Entitic vol] Ordered By: Zhou Fischer on 01-12-2023 MCV (RBC) [Entitic vol] 89.4 fL 83.5-101 [facility] Monocytes Auto (Bld) [#/Vol] Ordered By: Zhou Fischer on 01-12-2023 Monocytes (Bld) [#/Vol] 0.5 10*3/uL 0.0-0.8 [facility] Monocytes/100 WBC Auto (Bld) Ordered By: Zhou Fischer on 01-12-2023 Monocytes/100 WBC (Bld) 9.1 % . [facility] Neutrophils Auto (Bld) [#/Vo l]Ordered By: Zhuo Fischer on 01-12-2023 Neutrophils (Bld) [#/Vol] 3.4 10*3/uL 1.8-7.7 [facility] Neutrophils/100 WBC Auto (Bl d)Ordered By: Zhou Fischer on 01-12-2023 Neutrophils/100 WBC (Bld) 62.7 % . [facility] No Panel InformationOrdered By: Zhou Fischer on 01-12-2023 Estimated GFR (CKD-EPI) > 60.0 mL/Min [facility] Creatinine Clearance (Chem N/A [facility] Nucleated erythrocytes [Pres ence] in Blood by Automated countOrdered By: Zhou Fischer on 01-12-2023 Nucleated RBC Auto Ql (Bld) 0.1 /100{WBC} 0-0.5 [facility] Platelet mean volume Auto (B ld) [Entitic vol]Ordered By: Zhou Fischer on 01-12-2023 Platelet mean volume (Bld) [Entitic vol] 8.2 fL 6.6-10.1 [facility] Platelets Auto (Bld) [#/Vol] Ordered By: Zhou Fischer on 01-12-2023 Platelets (Bld) [#/Vol] 291 10*3/uL 150-450 [facility] Protein [Mass/volume] in Ser um or PlasmaOrdered By: Zhou Fischer on 01-12-2023 Protein [Mass/Vol] 6.9 g/dL 6.4-8.9 [facility] RBC Auto (Bld) [#/Vol]Ordere d By: Zhou Fischer on 01-12-2023 RBC (Bld) [#/Vol] 4.65 10*6/uL 3.90-5.60 [facility] Serum or plasma albumin/glob ulin mass ratioOrdered By: Zhou Fischer on 01-12-2023 Albumin/Globulin [Mass ratio] 1.8 {ratio} [facility] Serum or plasma non-glucuron idated bilirubin measurement (mass/volume)Ordered By: Zhou Fischer on 01-12-2023 Bilirubin.indirect [Mass/Vol] 0.5 mg/dL [facility] WBC Auto (Bld) [#/Vol]Ordere d By: Zhou Fischer on 01-12-2023 WBC (Bld) [#/Vol] 5.5 10*3/uL 4.1-10.5 [facility] Hepatitis B virus surface Ag [Presence] in Serum or Plasma by ImmunoassayOrdered By: Zhou Fischer on 12-23-2022 HBV surface Ag IA Ql Negative Negative [facility] Hepatitis C virus IgG Ab [Pr esence] in Serum or Plasma by ImmunoassayOrdered By: Zhou Fischer on 12-23-2022 HCV IgG IA Ql Non-Reactive Non Reactive [facility] No Panel InformationOrdered By: Zhou Fischer on 12-23-2022 Hepatitis B Core Total Antibody Negative Negative [facility] Comment on above: Performed at: [address] [id number] Director: Martin Forbes PhD, Phone: [phone] Hepatitis C Interpretation See comment . [facility] Comment on above: Not infected with HC V unless early or acute infection issuspected (which may be delayed in an immunocompromisedindividual), or other evidence exists to indicate HCVinfection. Hepatitis C RNA Quantitative N/A [facility] Serum hepatitis B virus surf mariia antibody detectionOrdered By: Zhou Fischer on 12-23-2022 HBV surface Ab Ql (S) Non-Reactive . [facility] Comment on above: Non Reactive: Incons istent with immunity, less than 10 mIU/mL Reactive: Consistent with immunity, greater than 9.9 mIU/mL Alanine aminotransferase [En zymatic activity/volume] in Serum or PlasmaOrdered By: Zhou Fischer on 12-16-2022 ALT [Catalytic activity/Vol] 33 U/L 7-52 [facility] Albumin [Mass/volume] in Ser um or Plasma by Bromocresol green (BCG) dye binding methoOrdered By: Zhou Fischer on 12-16-2022 Albumin BCG dye [Mass/Vol] 4.6 g/dL 3.5-5.7 [facility] Alkaline phosphatase [Enzyma tic activity/volume] in Serum or PlasmaOrdered By: Zhou Fischer on 12-16-2022 ALP [Catalytic activity/Vol] 73 U/L 34-104 [facility] Aspartate aminotransferase [ Enzymatic activity/volume] in Serum or PlasmaOrdered By: Zhou Fischer on 12-16-2022 AST [Catalytic activity/Vol] 26 U/L 13-39 [facility] Automated erythrocytes count in urine sediment (number/area)Ordered By: Zhou Fischer on 12-16-2022 RBC Auto (Urine sed) [#/Area] 1-2 [HPF] 0-4 [facility] Automated leukocytes count i n urine sediment (number/area)Ordered By: Zhou Fischer on 12-16-2022 WBC Auto (Urine sed) [#/Area] 0-1 [HPF] 0-4 [facility] Basophils Auto (Bld) [#/Vol] Ordered By: Zhou Fischer on 12-16-2022 Basophils (Bld) [#/Vol] 0.0 10*3/uL 0.0-0.2 [facility] Basophils/100 WBC Auto (Bld) Ordered By: Zhou Fischer on 12-16-2022 Basophils/100 WBC (Bld) 0.7 % . [facility] Bilirubin Auto test strip Ql (U)Ordered By: Zhou Fischer on 12-16-2022 Bilirubin Ql (U) Negative Negative [facility] Bilirubin.total [Mass/volume ] in Serum or PlasmaOrdered By: Zhou Fischer on 12-16-2022 Bilirubin [Mass/Vol] 0.6 mg/dL 0.3-1.0 [facility] C reactive protein [Mass/vol ume] in Serum or PlasmaOrdered By: Zhou Fischer on 12-16-2022 CRP [Mass/Vol] < 0.5 mg/dL 0.0-0.5 [facility] Calcium [Mass/volume] in Ser um or PlasmaOrdered By: Zhou Fischer on 12-16-2022 Calcium [Mass/Vol] 9.5 mg/dL 8.6-10.3 [facility] Carbon dioxide, total [Moles /volume] in Serum or PlasmaOrdered By: Zhou Fischer on 12-16-2022 CO2 [Moles/Vol] 28.8 mmol/L 21.0-31.0 [facility] Chloride [Moles/volume] in S honey or PlasmaOrdered By: Zhou Fischer on 12-16-2022 Chloride [Moles/Vol] 103 mmol/L 98-107 [facility] Creatinine [Mass/volume] in Serum or PlasmaOrdered By: Zhou Fischer on 12-16-2022 Creatinine [Mass/Vol] 0.91 mg/dL 0.70-1.30 [facility] Eosinophils Auto (Bld) [#/Vo l]Ordered By: Zhou Fischer on 12-16-2022 Eosinophils (Bld) [#/Vol] 0.1 10*3/uL 0.0-0.45 [facility] Eosinophils/100 WBC Auto (Bl d)Ordered By: Zhou Fischer on 12-16-2022 Eosinophils/100 WBC (Bld) 2.3 % . [facility] Erythrocyte distribution wid th Auto (RBC) [Ratio]Ordered By: Zhou Fischer on 12-16-2022 Erythrocyte distribution width (RBC) [Ratio] 13.5 % 12.0-14.8 [facility] Erythrocyte sedimentation ra te by Photometric methodOrdered By: Zhou Fischer on 12-16-2022 ESR Photometric method (Bld) [Velocity] 6 mm/hr 0-19 [facility] Globulin Calc (S) [Mass/Vol] Ordered By: Zhou Fischer on 12-16-2022 Globulin (S) [Mass/Vol] 2.1 g/dL F [facility] Glucose [Mass/volume] in Ser um or PlasmaOrdered By: Zhou Fischer on 12-16-2022 Glucose [Mass/Vol] 89 mg/dL 70-100 [facility] Comment on above: ADA recommended refe rence rangeRandom Glucose Reference Range is dependent on time and content of last meal. Glucose of more than 200 mg/dL in a nonstressed, ambulatory subject supports the diagnosis of Diabetes Mellitus. Hematocrit Auto (Bld) [Volum e fraction]Ordered By: Zhou Fischer on 12-16-2022 Hematocrit (Bld) [Volume fraction] 42.7 % 38.8-50.0 [facility] Hemoglobin [Mass/volume] in BloodOrdered By: Zhou Fischer on 12-16-2022 Hemoglobin (Bld) [Mass/Vol] 14.7 g/dL 13.0-17.0 [facility] Ketones Auto test strip (U) [Mass/Vol]Ordered By: Zhou Fischer on 12-16-2022 Ketones (U) [Mass/Vol] Negative Negative [facility] Laboratory - UrinalysisOrder ed By: Zhou Fischer on 12-16-2022 Hyaline casts LM Ql (Urine sed) None seen [LPF] 0-8 [facility] Leukocytes [#/volume] correc basim for nucleated erythrocytes in Blood by Automated counOrdered By: Zhou Fischer on 12-16-2022 WBC corrected for nucl RBC Auto (Bld) [#/Vol] 5.8 10*3/uL 4.1-10.5 [facility] Lymphocytes Auto (Bld) [#/Vo l]Ordered By: Zhou Fischer on 12-16-2022 Lymphocytes (Bld) [#/Vol] 1.6 10*3/uL 1.00-4.8 [facility] Lymphocytes/100 WBC Auto (Bl d)Ordered By: Zhou Fischer on 12-16-2022 Lymphocytes/100 WBC (Bld) 27.5 % . [facility] MCH Auto (RBC) [Entitic mass ]Ordered By: Zhou Fischer on 12-16-2022 MCH (RBC) [Entitic mass] 30.8 pg 27.5-35.2 [facility] MCHC Auto (RBC) [Mass/Vol]Or dered By: Zhou Fischer on 12-16-2022 MCHC (RBC) [Mass/Vol] 34.4 g/dL 32.5-35.6 [facility] MCV Auto (RBC) [Entitic vol] Ordered By: Zhou Fischer on 12-16-2022 MCV (RBC) [Entitic vol] 89.6 fL 83.5-101 F [facility] Monocytes Auto (Bld) [#/Vol] Ordered By: Zhou Fischer on 12-16-2022 Monocytes (Bld) [#/Vol] 0.5 10*3/uL 0.0-0.8 [facility] Monocytes/100 WBC Auto (Bld) Ordered By: Zhou Fischer on 12-16-2022 Monocytes/100 WBC (Bld) 9.2 % . F [facility] Neutrophils Auto (Bld) [#/Vo l]Ordered By: Zhou Fischer on 12-16-2022 Neutrophils (Bld) [#/Vol] 3.5 10*3/uL 1.8-7.7 [facility] Neutrophils/100 WBC Auto (Bl d)Ordered By: Zhou Fischer on 12-16-2022 Neutrophils/100 WBC (Bld) 60.3 % . [facility] No Panel InformationOrdered By: Zhou Fischer on 12-16-2022 Estimated GFR (CKD-EPI) > 60.0 mL/Min [facility] Creatinine Clearance (Chem N/A [facility] Nucleated erythrocytes [Pres ence] in Blood by Automated countOrdered By: Zhou Fischer on 12-16-2022 Nucleated RBC Auto Ql (Bld) 0.1 /100{WBC} 0-0.5 [facility] Platelet mean volume Auto (B ld) [Entitic vol]Ordered By: Zhou Fischer on 12-16-2022 Platelet mean volume (Bld) [Entitic vol] 8.7 fL 6.6-10.1 [facility] Platelets Auto (Bld) [#/Vol] Ordered By: Zhou Fischer on 12-16-2022 Platelets (Bld) [#/Vol] 284 10*3/uL 150-450 [facility] Potassium [Moles/volume] in Serum or PlasmaOrdered By: Zhou Fischer on 12-16-2022 Potassium [Moles/Vol] 4.5 mmol/L 3.5-5.1 [facility] Protein Auto test strip (U) [Mass/Vol]Ordered By: Zhou Fischer on 12-16-2022 Protein (U) [Mass/Vol] Negative Negative [facility] Protein [Mass/volume] in Ser um or PlasmaOrdered By: Zhou Fischer on 12-16-2022 Protein [Mass/Vol] 6.7 g/dL 6.4-8.9 [facility] RBC Auto (Bld) [#/Vol]Ordere d By: Zhou Fischer on 12-16-2022 RBC (Bld) [#/Vol] 4.76 10*6/uL 3.90-5.60 [facility] Serum or plasma albumin/glob ulin mass ratioOrdered By: Zhou Fischer on 12-16-2022 Albumin/Globulin [Mass ratio] 2.2 {ratio} [facility] Serum or plasma anion gap de terminationOrdered By: Zhou Fischer on 12-16-2022 Anion gap [Moles/Vol] 10.7 mmol/L 6.0-15.0 [facility] Serum or plasma complement C 3 measurement (mass/volume)Ordered By: Zhou Fischer on 12-16-2022 Complement C3 [Mass/Vol] 122 mg/dL 82-167 [facility] Comment on above: Performed at: - [email or web address] [address] [id number] Director: Martin Forbes PhD, Phone: [phone] Serum or plasma complement C 4 measurement (mass/volume)Ordered By: Zhou Fischer on 12-16-2022 Complement C4 [Mass/Vol] 21 mg/dL 12-38 [facility] Sodium [Moles/volume] in Ser um or PlasmaOrdered By: Zhou Fischer on 12-16-2022 Sodium [Moles/Vol] 138 mmol/L 136-145 [facility] Squamous epithelial cells de tection in urine sediment by light microscopyOrdered By: Zhou Fischer on 12-16-2022 Epithelial cells.squamous LM Ql (Urine sed) None seen [HPF] 0-2 [facility] Urea nitrogen [Mass/volume] in Serum or PlasmaOrdered By: Zhou Fischer on 12-16-2022 Urea nitrogen [Mass/Vol] 13 mg/dL 7-25 [facility] Urine appearanceOrdered By: Zhou Fischer on 12-16-2022 Appearance (U) Clear Clear [facility] Urine bacteria detection by automated methodOrdered By: Zhou Fischer on 12-16-2022 Bacteria Auto Ql (U) None seen None Seen [facility] Urine colorOrdered By: Mohamud Fischer on 12-16-2022 Color (U) Yellow Yellow [facility] Urine glucose measurement by automated test strip (mass/volume)Ordered By: Zhou Fischer on 12-16-2022 Glucose Auto test strip (U) [Mass/Vol] Normal mg/dL Normal [facility] Urine hemoglobin detection b y automated test stripOrdered By: Zhou Fischer on 12-16-2022 Hemoglobin Auto test strip Ql (U) Negative Negative [facility] Urine leukocyte esterase det ection by automated test stripOrdered By: Zhou Fischer on 12-16-2022 Leukocyte esterase Auto test strip Ql (U) Negative Negative [facility] Urine nitrite detection by a utomated test stripOrdered By: Zhou Fischer on 12-16-2022 Nitrite Auto test strip Ql (U) Negative Negative [facility] Urobilinogen Auto test strip (U) [Mass/Vol]Ordered By: Zhou Fischer on 12-16-2022 Urobilinogen (U) [Mass/Vol] Normal mg/dL Normal [facility] WBC Auto (Bld) [#/Vol]Ordere d By: Zhou Fischer on 12-16-2022 WBC (Bld) [#/Vol] 5.8 10*3/uL 4.1-10.5 [facility] pH Auto test strip (U)Ordere d By: Zhou Fischer on 12-16-2022 pH (U) 1.020 [pH] 1.001-1.030 [facility] pH (U) 5.5 [pH] 5.0-9.0 [facility] CULTURE URINEon 11-17-2022 CULTURE URINE Culture Observations: NO GROWTH. Normal [facility] Comment on above: Performed By: #### U RCX #### [facility] [address] [place] [address] Dr. Emily Copeland UA RANDOMon 11-17-2022 Bilirubin Ql (U) Negative Normal NEGATIVE [facility] Comment on above: Performed By: #### U A #### [facility] [address] [place] [address] Dr. Emily Copeland Clarity (U) CLEAR Normal CLEAR [facility] Comment on above: Performed By: #### U A #### [facility] [address] [place] [address] Dr. Emily Copeland Color (U) LT. YELLOW Normal YELLOW [facility] Comment on above: Performed By: #### U A #### [facility] [address] [place] [address] Dr. Emily Copeland Glucose Ql (U) Negative Normal NEGATIVE [facility] Comment on above: Performed By: #### U A #### [facility] [address] [place] [address] Dr. Emily Copeland Hemoglobin Ql (U) TRACE-INTACT Abnormal NEGATIVE [facility] Comment on above: Performed By: #### U A #### [facility] [address] [place] [address] Dr. Emily Copeland Ketones Ql (U) Negative Normal NEGATIVE [facility] Comment on above: Performed By: #### U A #### [facility] [address] [place] [address] Dr. Emily Copeland LEUKOCYTES Negative Normal NEGATIVE [facility] Comment on above: Performed By: #### U A #### [facility] [address] [place] [address] Dr. Emily Copeland Nitrite Ql (U) Negative Normal NEGATIVE [facility] Comment on above: Performed By: #### U A #### [facility] [address] [address] [address] Emily Copeland pH (U) 6.0 [pH] Normal 5-9 [facility] Comment on above: Performed By: #### U A #### [facility] [address] [address] [address] Emily Copeland SPEC GRAVITY 1.010 Normal 1.005-<=1.02 5 [facility] Comment on above: Performed By: #### U A #### [facility] [address] [address] [address] Emily Copeland UA PROTEIN Negative Normal NEGATIVE/ TRACE [facility] Comment on above: Performed By: #### U A #### [facility] [address] [address] [address] Emily Copeland Urobilinogen Qn (U) 0.2 {Eron'U}/dL Normal 0.2 - 1. 0 [facility] Comment on above: Performed By: #### U A #### [facility] [address] [address] [address] Emily Copeland UA DIP, URINE (POC)on 2022 BILIRUBIN UA (POCT) Negative Negative [facility] CLARITY UA (POCT) Clear [facility] COLOR UA (POCT) Yellow [facility] GLUCOSE UA (POCT) Negative Negative mg/dL [facility] HEMOGLOBIN/BLOOD UA (POCT) Negative Negative [facility] KETONE UA (POCT) Negative Negative mg/dL [facility] LEUKOCYTES UA (POCT) Negative Negative [facility] NITRITE UA (POCT) Negative Negative [facility] PH UA (POCT) 6.5 4.5 - 8.0 [facility] Protein Ql (U) Negative Negative mg/dL [facility] SPECIFIC GRAVITY UA (POCT) 1.015 1.005 - 1.030 [facility] UROBILINOGEN UA (POCT) 0.2 E.U./dL [place] E.U./dL [facility] UA DIP, URINE (POC)on 2022 BILIRUBIN UA (POCT) Negative Negative [facility] CLARITY UA (POCT) Clear [facility] COLOR UA (POCT) Yellow [facility] GLUCOSE UA (POCT) Negative Negative mg/dL [facility] HEMOGLOBIN/BLOOD UA (POCT) Negative Negative [facility] KETONE UA (POCT) Negative Negative mg/dL [facility] LEUKOCYTES UA (POCT) Negative Negative [facility] NITRITE UA (POCT) Negative Negative [facility] PH UA (POCT) 7.0 4.5 - 8.0 [facility] Protein Ql (U) Negative Negative mg/dL [facility] SPECIFIC GRAVITY UA (POCT) 1.015 1.005 - 1.030 [facility] UROBILINOGEN UA (POCT) 0.2 E.U./dL [place] E.U./dL [facility] Albumin [Mass/volume] in Ser um or PlasmaOrdered By: Zhou Fischer on 07-01-2022 Albumin [Mass/Vol] 4.3 g/dL 3.2-5.5 [facility] Automated erythrocytes count in urine sediment (number/area)Ordered By: Zhou Fischer on 07-01-2022 RBC Auto (Urine sed) [#/Area] None seen [HPF] 0-4 [facility] Automated leukocytes count i n urine sediment (number/area)Ordered By: Zhou Fischer on 07-01-2022 WBC Auto (Urine sed) [#/Area] None seen [HPF] 0-4 [facility] Basophils Auto (Bld) [#/Vol] Ordered By: Zhou Fischer on 07-01-2022 Basophils (Bld) [#/Vol] 0.0 10*3/uL 0.0-0.2 [facility] Basophils/100 WBC Auto (Bld) Ordered By: Zhou Fischer on 07-01-2022 Basophils/100 WBC (Bld) 0.4 % . F [facility] Bilirubin Test strip Ql (U)O rdered By: Zhou Fischer on 07-01-2022 Bilirubin Ql (U) Negative Negative [facility] C reactive protein [Mass/vol ume] in Serum or PlasmaOrdered By: Zhou Fischer on 07-01-2022 CRP [Mass/Vol] 0.5 mg/dL 0.0-1.0 [facility] Color Auto (U)Ordered By: Laurie Fischer on 07-01-2022 Color (U) Yellow Yellow [facility] Creatine kinase [Enzymatic a ctivity/volume] in Serum or PlasmaOrdered By: Zhou Fischer on 07-01-2022 CK [Catalytic activity/Vol] 102 U/L 22-269 [facility] Creatinine and Glomerular fi ltration rate.predicted panel (S/P/Bld)Ordered By: Zhou Fischer on 07-01-2022 Creatinine [Mass/Vol] 0.93 mg/dL 0.64-1.27 [facility] Eosinophils Auto (Bld) [#/Vo l]Ordered By: Zhou Fischer on 07-01-2022 Eosinophils (Bld) [#/Vol] 0.1 10*3/uL 0.0-0.45 [facility] Eosinophils/100 WBC Auto (Bl d)Ordered By: Zhou Fischer on 07-01-2022 Eosinophils/100 WBC (Bld) 2.5 % . [facility] Erythrocyte distribution wid th Auto (RBC) [Ratio]Ordered By: Zhou Fischer on 07-01-2022 Erythrocyte distribution width (RBC) [Ratio] 13.9 % 12.0-14.8 [facility] Estimated glomerular filtrat ion rate (GFR) non- AmericanOrdered By: Zhou Fischer on 07-01-2022 GFR/1.73 sq M.predicted among non-blacks MDRD (S/P/Bld) [Vol rate/Area] > 60 mL/Min [facility] Globulin Calc (S) [Mass/Vol] Ordered By: Zhou Fischer on 07-01-2022 Globulin (S) [Mass/Vol] 2.5 g/dL F [facility] Hematocrit Auto (Bld) [Volum e fraction]Ordered By: Zhou Fischer on 07-01-2022 Hematocrit (Bld) [Volume fraction] 46.1 % 38.8-50.0 [facility] Hemoglobin [Mass/volume] in BloodOrdered By: Zhou Fischer on 07-01-2022 Hemoglobin (Bld) [Mass/Vol] 15.7 g/dL 13.0-17.0 [facility] Ketones Auto test strip (U) [Mass/Vol]Ordered By: Zhou Fischer on 07-01-2022 Ketones (U) [Mass/Vol] Negative Negative Fi [facility] Laboratory - UrinalysisOrder ed By: Zhou Fischer on 07-01-2022 Hyaline casts LM Ql (Urine sed) None seen [LPF] 0-8 [facility] Leukocytes [#/volume] correc basim for nucleated erythrocytes in Blood by Automated counOrdered By: Zhou Fischer on 07-01-2022 WBC corrected for nucl RBC Auto (Bld) [#/Vol] 5.9 10*3/uL 4.1-10.5 [facility] Lymphocytes Auto (Bld) [#/Vo l]Ordered By: Zhou Fischer on 07-01-2022 Lymphocytes (Bld) [#/Vol] 1.5 10*3/uL 1.00-4.8 [facility] Lymphocytes/100 WBC Auto (Bl d)Ordered By: Zhou Fischer on 07-01-2022 Lymphocytes/100 WBC (Bld) 25.1 % . [facility] MCH Auto (RBC) [Entitic mass ]Ordered By: Zhou Fischer on 07-01-2022 MCH (RBC) [Entitic mass] 30.4 pg 27.5-35.2 [facility] MCHC Auto (RBC) [Mass/Vol]Or dered By: Zhou Fischer on 07-01-2022 MCHC (RBC) [Mass/Vol] 34.0 g/dL 32.5-35.[address] [facility] MCV Auto (RBC) [Entitic vol] Ordered By: Zhou Fischer on 07-01-2022 MCV (RBC) [Entitic vol] 89.5 fL 83.5-101 F [facility] Monocytes Auto (Bld) [#/Vol] Ordered By: Zhou Fischer on 07-01-2022 Monocytes (Bld) [#/Vol] 0.5 10*3/uL 0.0-0.8 [facility] Monocytes/100 WBC Auto (Bld) Ordered By: Zhou Fischer on 07-01-2022 Monocytes/100 WBC (Bld) 8.4 % . [facility] Neutrophils Auto (Bld) [#/Vo l]Ordered By: Zhou Fischer on 07-01-2022 Neutrophils (Bld) [#/Vol] 3.7 10*3/uL 1.8-7.7 [facility] Neutrophils/100 WBC Auto (Bl d)Ordered By: Zhou Fischer on 07-01-2022 Neutrophils/100 WBC (Bld) 63.6 % . [facility] Nitrite Test strip Ql (U)Ord ered By: Zhou Fischer on 07-01-2022 Nitrite Ql (U) Negative Negative [facility] No Panel InformationOrdered By: Zhou Fischer on 07-01-2022 Estimated GFR () > 60 mL/Min [facility] Comment on above: GFR estimated refere nce range: According to KDOQI guidelines, <60 ml/min/1.73m2 is sufficient to diagnose a patient with chronic kidney disease. Pharmacy Creatinine Clearance (Chem N/A [facility] Nucleated erythrocytes [Pres ence] in Blood by Automated countOrdered By: Zhou Fischer on 07-01-2022 Nucleated RBC Auto Ql (Bld) 0.1 /100{WBC} 0-0.5 [facility] Platelet mean volume Auto (B ld) [Entitic vol]Ordered By: Zhou Fischer on 07-01-2022 Platelet mean volume (Bld) [Entitic vol] 8.4 fL 6.6-10.1 [facility] Platelets Auto (Bld) [#/Vol] Ordered By: Zhou Fischer on 07-01-2022 Platelets (Bld) [#/Vol] 323 10*3/uL 150-450 [facility] Protein Auto test strip (U) [Mass/Vol]Ordered By: Zhou Fischer on 07-01-2022 Protein (U) [Mass/Vol] Negative Negative [facility] Protein [Mass/volume] in Ser um or PlasmaOrdered By: Zhou Fischer on 07-01-2022 Protein [Mass/Vol] 6.8 g/dL 6.1-7.9 [facility] RBC Auto (Bld) [#/Vol]Ordere d By: Zhou Fischer on 07-01-2022 RBC (Bld) [#/Vol] 5.15 10*6/uL 3.90-5.60 [facility] Serum or plasma alanine castelan otransferase measurement without P-5'-P (enzymatic activiOrdered By: Zhou Fischer on 07-01-2022 ALT No additional P-5'-P [Catalytic activity/Vol] 54 U/L 10-60 [facility] Serum or plasma albumin/glob ulin mass ratioOrdered By: Zhou Fischer on 07-01-2022 Albumin/Globulin [Mass ratio] 1.7 {ratio} [facility] Serum or plasma alkaline saurabh sphatase measurement (enzymatic activity/volume)Ordered By: Zhou Fischer on 07-01-2022 ALP [Catalytic activity/Vol] 73 U/L 32-92 [facility] Serum or plasma anion gap de terminationOrdered By: Zhou Fischer on 07-01-2022 Anion gap [Moles/Vol] 13.0 mmol/L 6.0-15.0 [facility] Serum or plasma aspartate am inotransferase measurement (enzymatic activity/volume)Ordered By: Zhou Ficsher on 07-01-2022 AST [Catalytic activity/Vol] 35 U/L 10-42 [facility] Serum or plasma calcium adelso urement (mass/volume)Ordered By: Zhou Fischer on 07-01-2022 Calcium [Mass/Vol] 9.7 mg/dL 8.2-10.2 [facility] Serum or plasma chloride yannick surement (moles/volume)Ordered By: Zhou Fischer on 07-01-2022 Chloride [Moles/Vol] 99 mmol/L 95-114 [facility] Serum or plasma glucose adelso urement (mass/volume)Ordered By: Zhou Fischer on 07-01-2022 Glucose [Mass/Vol] 87 mg/dL 70-100 [facility] Comment on above: ADA recommended refe rence rangeRandom Glucose Reference Range is dependent on time and content of last meal. Glucose of more than 200 mg/dL in a nonstressed, ambulatory subject supports the diagnosis of Diabetes Mellitus. Serum or plasma intact parat hyroid hormone measurement (mass/volume)Ordered By: Zhou Fischer on 07-01-2022 Parathyrin.intact [Mass/Vol] 38.6 pg/mL [facility] Serum or plasma potassium me asurement (moles/volume)Ordered By: Zhou Fischer on 07-01-2022 Potassium [Moles/Vol] 4.4 mmol/L 3.5-5.1 [facility] Serum or plasma sodium measu rement (moles/volume)Ordered By: Zhou Fischer on 07-01-2022 Sodium [Moles/Vol] 133 mmol/L 136-146 [facility] Serum or plasma total biliru bin measurement (mass/volume)Ordered By: Zhou Fischer on 07-01-2022 Bilirubin [Mass/Vol] 0.6 mg/dL 0.3-1.2 [facility] Serum or plasma total carbon dioxide measurement (moles/volume)Ordered By: Zhou Fischer on 07-01-2022 CO2 [Moles/Vol] 25.4 mmol/L 22.0-30.0 [facility] Serum or plasma urea nitroge n measurement (mass/volume)Ordered By: Zhou Fischer on 07-01-2022 Urea nitrogen [Mass/Vol] 13 mg/dL 9-23 [facility] Specific gravity Auto test s trip (U) [Rel density]Ordered By: Zhou Fischer on 07-01-2022 Specific gravity (U) [Rel density] 1.004 1.001-1.030 [facility] Squamous epithelial cells de tection in urine sediment by light microscopyOrdered By: Zhou Fischer on 07-01-2022 Epithelial cells.squamous LM Ql (Urine sed) None seen [HPF] 0-2 [facility] TSH DL <= 0.005 mIU/L QnOrde red By: Zhou Fischer on 07-01-2022 TSH Qn 1.31 m[IU]/L 0.45-5.33 [facility] Urine bacteria detection by automated methodOrdered By: Zhou Fischer on 07-01-2022 Bacteria Auto Ql (U) None seen None Seen [facility] Urine clarity by refractomet ry automatedOrdered By: Zhou Fischer on 07-01-2022 Clarity Refractometry automated (U) Clear Clear [facility] Urine glucose measurement by automated test strip (mass/volume)Ordered By: Zhou Fischer on 07-01-2022 Glucose Auto test strip (U) [Mass/Vol] Normal mg/dL Normal [facility] Urine hemoglobin detection b y automated test stripOrdered By: Zhou Fischer on 07-01-2022 Hemoglobin Auto test strip Ql (U) Negative Negative [facility] Urine leukocyte esterase det ection by automated test stripOrdered By: Zhou Fischer on 07-01-2022 Leukocyte esterase Auto test strip Ql (U) Negative Negative [facility] Urobilinogen Auto test strip (U) [Mass/Vol]Ordered By: Zhou Fischer on 07-01-2022 Urobilinogen (U) [Mass/Vol] Normal mg/dL Normal [facility] WBC Auto (Bld) [#/Vol]Ordere d By: Zhou Fischer on 07-01-2022 WBC (Bld) [#/Vol] 5.9 10*3/uL 4.1-10.5 [facility] pH Auto test strip (U)Ordere d By: Zhou Fischer on 07-01-2022 pH (U) 6.5 [pH] 5.0-9.0 [facility] ALLIED HEALTHon 05-15-2022 ALLIED HEALTH HNO ID: [id number] Author: Liss Hutton RT(R) Service: ? Author [...] DEPARTMENT: CT; Exam(s) Completed: Abdomen/Pelvis SIGNATURE: Liss Hutton RT(R) PATIENT NAME: Timur Francisco DATE: May 15, 2022 TIME: 8:28 AM Normal [facility] CREATININE BLDon 05-15-2022 Creatinine [Mass/Vol] 0.97 mg/dL Normal 0.73-1.22 [facility] Comment on above: Order Comment: Alex ceron Type: BLOOD SPECIMEN Ordering Facility: [facility] Address: [address] [id number] Performed By: #### C RET1 #### [facility] CLIA [id number] [place] [address] [place] ESTIMATED GLOMERULAR FILTRATION RATE 83 mL/min/1.73m??? Normal >=60 [facility] Comment on above: Order Comment: Alex ceron Type: BLOOD SPECIMEN Ordering Facility: [facility] Address: [address] [place], [place] [id number] Result Comment: Marsha mated Glomerular Filtration Rate [...] GFR. Performed By: #### C RET1 #### [facility] CLIA [id number] [place] [address] [facility] [address] UROGRAM WO/W IVCONon 11- CT UROGRAM WO/W IVCON * * *Final Report* * * DATE OF EXAM: May 15 2022 8:37AM [facility] 0560 - CT UROGRAM WO/W IVCON / [...] Lymph nodes: No abdominal or pelvic lymphadenopathy. Mesentery/Peritoneu m: No ascites or mass. Retroperitoneum: No mass. [...] Images of the lung bases are clear. Meteorology Instructor (topogram) images: No additional findings. IMPRESSION: NO HYDRONEPHROSIS OR NEPHROLITHIASIS. NO ABNORMALLY ENHANCED RENAL OR BLADDER MASS. DIFFUSE SIGMOID DIVERTICULOSIS AND MILD NONSPECIFIC CIRCUMFERENTIAL RECTOANAL BOWEL WALL THICKENING. SUGGEST CLINICAL CORRELATION AND GI FOLLOW-UP. 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 URINE CULTUREon 04-23-2022 Bacteria identified Cx Nom (U) No growth (<1,000 CFU/ml) [facility] LIANNE by IFAon 04-05-2022 Antinuclear Antibodies, IFA Positive Abnormal [facility] Comment on above: Result Comment: Nega tive <1:80 Borderline 1:80 Positive >1:80 Performed By: #### A NAIFA #### [facility] [address] [address] [address] Emily Copeland Centriole Pattern Normal [facility] Comment on above: Performed By: #### A NAIFA #### [facility] [address] [address] [address] Emily Copeland Centromere Pattern Normal [facility] Comment on above: Performed By: #### A NAIFA #### [facility] [address] [address] [address] Emily Copeland Homogeneous Pattern 1:320 Critically high [facility] Comment on above: Result Comment: ICAP nomenclature: AC-1 Performed By: #### A NAIFA #### [facility] [address] [address] [address] Emily Copeland Midbody Pattern Normal [facility] Comment on above: Performed By: #### A NAIFA #### [facility] [address] [address] [address] Emily Copeland Note: Comment Normal [facility] Comment on above: Result Comment: For [...] titers Nucleosomes, Histones Drug-induced SLE Speckled Sm, [employer], SCL-70, SLE,MCTD,PSS (diffuse form), SS-A/SS-B Sjogrens Nucleolar SCL-70, PM-1/SCL High titers Scleroderma, PM/DM Centromere Centromere PSS (limited form) w/Crest syndrome variable Nuclear Dot Sp100,o69-rweknt Primary Biliary Cirrhosis Nuclear GP210, Primary Biliary Cirrhosis Membrane kacie A,B,C Performed By: #### A NAIFA #### [facility] [address] [place] [address] Dr. Emily Copeland Nuclear Dot Pattern Normal [facility] Comment on above: Performed By: #### A NAIFA #### [facility] [address] [place] [address] Dr. Emily Copeland Nuclear Membrane Pattern Normal [facility] Comment on above: Performed By: #### A NAIFA #### [facility] [address] [address] [address] Emily Copeland Nucleolar Pattern Normal [facility] Comment on above: Performed By: #### A NAIFA #### [facility] [address] [address] [address] Emily Copeland PCNA Pattern Normal [facility] Comment on above: Performed By: #### A NAIFA #### [facility] [address] [place] [address] Dr. Emily Copeland Speckled Pattern Normal [facility] Comment on above: Performed By: #### A NAIFA #### [facility] [address] [place] [address] Dr. Emily Copeland Spindle Apparatus Pattern Normal [facility] Comment on above: Performed By: #### A NAIFA #### [facility] [address] [place] [address] Dr. Emily Copeland ANTISTREPTOLYSIN O AB (ASO)o n 04-03-2022 Antistreptolysin O Ab 98.8 IU/mL Normal 0.0-200.0 [facility] Comment on above: Performed By: #### A SOAB #### [facility] [address] [place] [address] Dr. Emily Copeland CYTOLOGY NON-GYNon 2 Case Report Medical Cytology Report Case: [id number] Authorizing Provider: Nanci Carvajal MD Collected: 04/01/2022 04:04 PM Ordering Location: Urology Received: 04/01/2022 08:21 PM Pathologist: Tomás Andersen MD, PhD Specimen: URINE VOIDED [facility] Clinical History bladder cancer [facility] FINAL DIAGNOSIS A - URINE VOIDED Suspicious for high-grade urothelial carcinoma. [facility] Gross Description A. URINE VOIDED 80 cc clear yellow fluid. ThinPrep prepared. [facility] Performing Lab Technical component, hydraulic pile hammer operator screening performed at [facility], [facility] [id number] CLIA# [id number] Diagnostic interpretation performed at [facility], [address] [id number] CLIA# [id number] [place] Administrator: Reid Monteiro M.D. [facility] RHEUMATOID FACTORon 04-03-20 22 RA Latex Turbid. 18.0 IU/mL Critically high <14.0 [facility] Comment on above: Performed By: #### R F #### [facility] [address] [place] [address] Dr. Emily Copeland CBC AUTO DIFFon 04-02-2022 BASO # 0.0 103/ul Normal 0.0-0.1 [facility] Comment on above: Performed By: #### C BC #### [facility] [address] [place] [address] Dr. Emily Copeland Basophils/100 WBC (Bld) 0.6 % Normal 0.2-2.0 [facility] Comment on above: Performed By: #### C BC #### [facility] [address] [place] [address] Dr. Emily oCpeland EO # 0.1 103/ul Normal 0.0-0.7 [facility] Comment on above: Performed By: #### C BC #### [facility] [address] [place] [address] Dr. Emily Copeland Eosinophils/100 WBC (Bld) 2.2 % Normal 0.9-7.0 [facility] Comment on above: Performed By: #### C BC #### [facility] [address] [place] [address] Dr. Emily Copeland Erythrocyte distribution width (RBC) [Ratio] 13.0 % Normal 11.0-15.0 [facility] Comment on above: Performed By: #### C BC #### [facility] [address] [place] [address] Dr. Emily Copeland Hematocrit (Bld) [Volume fraction] 45.1 % Normal 42.0-54.0 [facility] Comment on above: Performed By: #### C BC #### [facility] [address] [place] [address] Dr. Emily Copeland Hemoglobin (Bld) [Mass/Vol] 15.3 g/dL Normal 14.0-18.0 [facility] Comment on above: Performed By: #### C BC #### [facility] [address] [place] [address] Dr. Emily Copeland IG # 0.01 10e3/ul Normal 0.00-0.03 [facility] Comment on above: Performed By: #### C BC #### [facility] [address] [place] [address] Dr. Emily Copeland IG % 0.2 % Normal 0.0-0.5 [facility] Comment on above: Performed By: #### C BC #### [facility] [address] [place] [address] Dr. Emily Copeland LYMPH # 1.8 103/ul Normal 1.2-3.8 [facility] Comment on above: Performed By: #### C BC #### [facility] [address] [place] [address] Dr. Emily Copeland Lymphocytes/100 WBC (Bld) 29.0 % Normal 20.5-60.0 [facility] Comment on above: Performed By: #### C BC #### [facility] [address] [place] [address] Dr. Emily Copeland MANUAL DIFF REQ NO Normal [facility] Comment on above: Performed By: #### C BC #### [facility] [address] [place] [address] Dr. Emily Copeland MCH (RBC) [Entitic mass] 30.1 pg Normal 25.9-34.0 [facility] Comment on above: Performed By: #### C BC #### [facility] [address] [place] [address] Dr. Emily Copeland MCHC (RBC) [Mass/Vol] 33.9 g/dL Normal 29.9-35.2 [facility] Comment on above: Performed By: #### C BC #### [facility] [address] [place] [address] Dr. Emily Copeland MCV (RBC) [Entitic vol] 88.8 fL Normal 80.0-94.0 [facility] Comment on above: Performed By: #### C BC #### [facility] [address] [place] [address] Dr. Emily Copeland MONO # 0.7 103/ul Normal 0.3-0.8 [facility] Comment on above: Performed By: #### C BC #### [facility] [address] [place] [address] Dr. Emily Copeland Monocytes/100 WBC (Bld) 11.5 % Normal 1.7-12.0 [facility] Comment on above: Performed By: #### C BC #### [facility] [address] [address] [address] Emily Copeland NEUT # 3.6 103/ul Normal 1.4-6.5 [facility] Comment on above: Performed By: #### C BC #### [facility] [address] [address] [address] Emily Copeland Neutrophils/100 WBC (Bld) 56.5 % Normal 43.0-75.0 [facility] Comment on above: Performed By: #### C BC #### [facility] [address] [place] [address] Dr. Emily Copeland Platelet mean volume (Bld) [Entitic vol] 9.7 fL Normal 9.5-13.5 [facility] Comment on above: Performed By: #### C BC #### [facility] [address] [place] [address] Dr. Emily Copeland PLT 323 103/ul Normal 150-450 [facility] Comment on above: Performed By: #### C BC #### [facility] [address] [place] [address] Dr. Emily Copeland RBC 5.08 106/ul Normal 4.70-6.10 [facility] Comment on above: Performed By: #### C BC #### [facility] [address] [place] [address] Dr. Emily Copeland WBC 6.4 103/ul Normal 4.0-11.0 [facility] Comment on above: Performed By: #### C BC #### [facility] [address] [place] [address] Dr. Emily Copeland CRPon 04-02-2022 CRP [Mass/Vol] mg/L Normal <=1.0 [facility] Comment on above: Performed By: #### C RP, CMP, URIC #### [facility] [address] [place] [address] Dr. Emily Copeland PROF 14(COMP METB)on 022 Albumin [Mass/Vol] 4.0 g/dL Normal 3.4-5.0 [facility] Comment on above: Performed By: #### C RP, CMP, URIC #### [facility] [address] [address] [address] Emily Copeland Albumin/Globulin [Mass ratio] 1.2 {ratio} Normal [facility] Comment on above: Performed By: #### C RP, CMP, URIC #### [facility] [address] [address] [address] Emily Copeland ALP [Catalytic activity/Vol] 79 U/L Normal 46-116 [facility] Comment on above: Performed By: #### C RP, CMP, URIC #### [facility] [address] [address] [address] Emily Copeland ALT [Catalytic activity/Vol] 37 U/L Normal 16-63 [facility] Comment on above: Performed By: #### C RP, CMP, URIC #### [facility] [address] [address] [address] Emily Copeland Anion gap [Moles/Vol] 10.0 mmol/L Normal [facility] Comment on above: Performed By: #### C RP, CMP, URIC #### [facility] [address] [place] [address] Dr. Emily Copeland AST [Catalytic activity/Vol] 22 U/L Normal 15-37 [facility] Comment on above: Performed By: #### C RP, CMP, URIC #### [facility] [address] [address] [address] Emily Copeland Bilirubin [Mass/Vol] 0.6 mg/dL Normal 0.2-1.0 [facility] Comment on above: Performed By: #### C RP, CMP, URIC #### [facility] [address] [place] [address] Dr. Emily Copeland Calcium [Mass/Vol] 9.4 mg/dL Normal 8.5-10.1 [facility] Comment on above: Performed By: #### C RP, CMP, URIC #### [facility] [address] [place] [address] Dr. Emily Copeland Chloride [Moles/Vol] 103 mmol/L Normal 98-107 [facility] Comment on above: Performed By: #### C RP, CMP, URIC #### [facility] [address] [address] [address] Emily Copeland CO2 [Moles/Vol] 29.3 mmol/L Normal 21.0-32.0 [facility] Comment on above: Performed By: #### C RP, CMP, URIC #### [facility] [address] [address] [address] Emily Copeland Creatinine [Mass/Vol] 0.94 mg/dL Normal 0.70-1.30 [facility] Comment on above: Performed By: #### C RP, CMP, URIC #### [facility] [address] [place] [address] Dr. Emily Copeland EGFR-AF INDIAN >60 Normal >=60 [facility] Comment on above: Performed By: #### C RP, CMP, URIC #### [facility] [address] [place] [address] Dr. Emily Copeland EGFR-NON AF INDIAN >60 Normal >=60 [facility] Comment on above: Performed By: #### C RP, CMP, URIC #### [facility] [address] [place] [address] Dr. Emily Copeland Globulin (S) [Mass/Vol] 3.4 g/dL Normal [facility] Comment on above: Performed By: #### C RP, CMP, URIC #### [facility] [address] [place] [address] Dr. Emily Copeland Glucose [Mass/Vol] 98 mg/dL Normal 74-106 [facility] Comment on above: Performed By: #### C RP, CMP, URIC #### [facility] [address] [place] [address] Dr. Emily Copeland Potassium [Moles/Vol] 4.3 mmol/L Normal 3.5-5.1 [facility] Comment on above: Performed By: #### C RP, CMP, URIC #### [facility] [address] [place] [address] Dr. Emily Copeland Protein [Mass/Vol] 7.4 g/dL Normal 6.4-8.2 [facility] Comment on above: Performed By: #### C RP, CMP, URIC #### [facility] [address] [address] [address] Emily Copeland Sodium [Moles/Vol] 138 mmol/L Normal 136-145 [facility] Comment on above: Performed By: #### C RP, CMP, URIC #### [facility] [address] [address] [address] Emily Copeland Urea nitrogen [Mass/Vol] 19.0 mg/dL Critically high 7.0-18.0 [facility] Comment on above: Performed By: #### C RP, CMP, URIC #### [facility] [address] [address] [address] Emily Copeland Urea nitrogen/Creatinine [Mass ratio] 20.2 mg/mg Normal [facility] Comment on above: Performed By: #### C RP, CMP, URIC #### [facility] [address] [address] [address] Emily Copeland URIC ACID SERUMon 04-02-2022 Urate [Mass/Vol] 5.2 mg/dL Normal 3.5-7.2 [facility] Comment on above: Performed By: #### C RP, CMP, URIC #### [facility] [address] [place] [address] Dr. Emily Copeland UA DIP, URINE (POC)on 2021 BILIRUBIN UA (POCT) Negative Negative [facility] CLARITY UA (POCT) Clear [facility] COLOR UA (POCT) Yellow [facility] GLUCOSE UA (POCT) Negative Negative mg/dL [facility] HEMOGLOBIN/BLOOD UA (POCT) Negative Negative [facility] KETONE UA (POCT) Negative Negative mg/dL [facility] LEUKOCYTES UA (POCT) Negative Negative [facility] NITRITE UA (POCT) Negative Negative [facility] PH UA (POCT) 6.0 4.5 - 8.0 [facility] Protein Ql (U) Negative Negative [facility] SPECIFIC GRAVITY UA (POCT) 1.015 1.005 - 1.030 [facility] UROBILINOGEN UA (POCT) 0.2 E.U./dL [place] E.U./dL [facility] COVID-19, Rapidon 11-11-2021 Specimen Description .NASOPHARYNGEAL SWAB [facility] Flu A/B Ag Detectionon 11-11 Flu A Ag Detection Negative Normal NEG [facility] Comment on above: Result Comment: for Influenza A Antigen Performed By: #### F LUABA #### [facility] [address] [place], [place] [id number] Clinical Haematologist: Zeinab Pink MD Flu B Ag Detection Negative Normal NEG [facility] Comment on above: Result Comment: for Influenza B Antigen. Performed By: #### F LUABA #### [facility] [address] [place] [address] Clinical Haematologist: Zeinab Pink MD Rapid Influenza A/B Antigens on 11-11-2021 Flu A Antigen Negative NEGATIVE [facility] Comment on above: for Influenza A Anti gen Flu B Antigen Negative NEGATIVE [facility] Comment on above: for Influenza B Anti gen. [facility] [id number] 11-11-2021 SARS-CoV-2 (COVID-19) RNA BEN+probe Ql (Unsp spec) Not detected Normal NOTDET [facility] Comment on above: Rapid NAAT: The [...] management decisions. Fact sheet for Healthcare Providers: https://www.fda.gov/media/877741/download Fact sheet for Patients: https://www.fda.gov/media/972363/download Methodology: Isothermal Nucleic Acid Amplification Result Comment: [...] management decisions. Fact sheet for Healthcare Providers: https://www.fda.gov/media/704443/download Fact sheet for Patients: https://www.fda.gov/media/312854/download Methodology: Isothermal Nucleic Acid Amplification Performed By: #### C OVRB #### [facility] [address] [place] [address] Clinical Haematologist: Zeinab Pink MD XR HIP 2-3 VW W PELVIS RIGHT on 06-13-2021 XR HIP 2-3 VW W PELVIS RIGHT EXAM: XR LUMBAR SPINE (MIN 4 VIEWS), XR HIP 2-3 VW W PELVIS RIGHT HISTORY: M25.551, low back pain, right hip pain. COMPARISON: Lumbar spine 05/14/2020, [facility] CT abdomen and pelvis 03/22/2021. TECHNIQUE: 5 [...] Fletcher Jr., MD 06/13/21 Final result Normal [facility] No change in the lumbar spine fusion and degenerative changes. Anatomically aligned right total hip prosthesis. [facility] EXAM: XR LUMBAR SPINE (MIN 4 VIEWS), XR HIP 2-3 VW W PELVIS RIGHT HISTORY: M25.551, low back pain, right hip pain. COMPARISON: Lumbar spine 05/14/2020, [facility] CT abdomen and pelvis 03/22/2021. TECHNIQUE: 5 [...] hardware complication. Moderate degenerative change left hip. [facility] Roverto Fletcher Jr., MD - 06/13/2021 EXAM: XR LUMBAR SPINE (MIN 4 VIEWS), XR HIP 2-3 VW W PELVIS RIGHT HISTORY: M25.551, low back pain, right hip pain. COMPARISON: Lumbar spine 05/14/2020, [facility] CT abdomen and pelvis 03/22/2021. TECHNIQUE: 5 [...] changes. Anatomically aligned right total hip prosthesis. [facility] Work Phone: Radiology Study observation (narrative) [facility] Work Phone: XR HIP 2-3 VW W PELVIS RIGHT Ordered By: Roverto Fletcher on 06-13-2021 [facility] Work Phone: XR LUMBAR SPINE (MIN 4 VIEWS )on 06-13-2021 XR LUMBAR SPINE (MIN 4 VIEWS) EXAM: XR LUMBAR SPINE (MIN 4 VIEWS), XR HIP 2-3 VW W PELVIS RIGHT HISTORY: M25.551, low back pain, right hip pain. COMPARISON: Lumbar spine 05/14/2020, [facility] CT abdomen and pelvis 03/22/2021. TECHNIQUE: 5 [...] Fletcher Jr., MD 06/13/21 Final result Normal [facility] Epidural Injectionon 021 Edy Villalpando MD 08/15/2020 11:13 AM Epidural Injection Performed by: Edy Villalpando MD Authorized by: Edy Villalpando MD Medications: 120 mg triamcinolone acetonide 40 mg/mL Anesthetic used: Lidocaine 1% [facility] XR LUMBAR SPINE STANDARD WIT H FLEX/EXT [...] and reduces to 2 mm with extension. Nktm-at-qgacegul degenerative spondylosis and facet osteoarthropathy. DISC SPACES: [...] ThuMay 14, 2020 3:28:29 PM EST Normal [facility] Comment on above: Order Comment: Injur [...] instability identified during extension Workstation ID: [id number] [facility] EXAMINATION: XR LUMBAR SPINE STANDARD WITH FLEX/EXT [...] and reduces to 2 mm with extension. Enis-wj-tferrkko degenerative spondylosis and facet osteoarthropathy. DISC SPACES: Multilevel disc space narrowing. Near disc collapse with endplate sclerosis L2-L3. Intervertebral spacer L5-S1 PARASPINOUS:No paraspinous abnormality is seen. OTHER: Negative. [facility] Interface, Rad In [employer] - 05/14/2020 [...] and reduces to 2 mm with extension. Yhtm-wu-kfozrjcd degenerative spondylosis and facet osteoarthropathy. DISC SPACES: Multilevel disc space narrowing. Near disc collapse with endplate sclerosis L2-L3. Intervertebral spacer L5-S1 PARASPINOUS:No paraspinous abnormality is seen. OTHER: Negative. IMPRESSION: Moderate degenerative changes 4.5 mm anterolisthesis L4 in relation L5 with mild dynamic instability identified during extension Workstation ID: [id number] MR LUMBAR SPINE WITHOUT CONT RASTon 05-08-2020 1. Postsurgical changes from L4-L5 fusion. 2. 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 3. Moderate to severe degenerative disease throughout the lumbar spine as described above. Workstation ID: [id number] [facility] EXAMINATION: MRI lumbar spine without contrast HISTORY: Dx: M43.16 (Spondylolisthesis of lumbar region) Injury/Trauma or Illness?:Illness/Ot her How long have you had these symptoms (acute/chronic)?:Ch ronic Back pain or radiculopathy, > 6 wks COMPARISON: Plain radiograph 02/07/2020 TECHNIQUE: Multiplanar, multisequence MRI of the lumbar spine is submitted for review without the use of gadolinium. FINDINGS: The conus medullaris is of normal caliber and signal intensity. There are 5 xae-gmo-yeslhwm lumbar vertebrae. There is normal lumbar lordosis [...] stenosis secondary to osteophytes and facet arthropathy. [facility] Interface, Rad In [facility] 05/08/2020 11:02 AM EST EXAMINATION: MRI lumbar spine without contrast HISTORY: Dx: M43.16 (Spondylolisthesis of lumbar region) Injury/Trauma or Illness?:Illness/Ot her How long have you had these symptoms (acute/chronic)?:Ch ronic Back pain or radiculopathy, > 6 wks COMPARISON: Plain radiograph 02/07/2020 TECHNIQUE: Multiplanar, multisequence MRI of the lumbar spine is submitted for review without the use of gadolinium. FINDINGS: The conus medullaris is of normal caliber and signal intensity. There are 5 coj-flp-ylsnztq lumbar vertebrae. There is normal lumbar lordosis [...] from L4-L5 fusion. 2. 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 3. Moderate to severe degenerative disease throughout the lumbar spine as described above. Workstation ID: [id number] [facility] MR LUMBAR SPINE WITHOUT CONTRAST EXAMINATION: MRI lumbar spine without contrast HISTORY: Dx: M43.16 (Spondylolisthesis of lumbar region) Injury/Trauma or Illness?:Illness/Ot her How long have you had these symptoms (acute/chronic)?:Ch ronic Back pain or radiculopathy, > 6 wks COMPARISON: Plain radiograph 02/07/2020 TECHNIQUE: Multiplanar, multisequence MRI of the lumbar spine is submitted for review without the use of gadolinium. FINDINGS: The conus medullaris is of normal caliber and signal intensity. There are 5 sci-hrm-udjydrh lumbar vertebrae. There is normal lumbar lordosis [...] from L4-L5 fusion. 2. 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 3. Moderate to severe degenerative disease throughout the lumbar spine as described above. Workstation ID: [id number] Dictated by: EDMOND MORALES on ThuMay 08, 2020 10:59:18 AM EST Transcribed by: EDMOND MORALES on ThuMay 08, 2020 10:59:18 AM EST Finalized by: EDMOND MORALES on ThuMay 08, 2020 10:59:18 AM EST Normal [facility] Comment on above: Order Comment: Injur [...] Vertebral body heights are maintained. There is xhwxjmch-wn-xsbvcf degenerative disc disease at L2-L3 as well [...] of the report, grossly stable from 10/31/2019. [facility]jitJ/lab Workstation ID: [id number] Dictated by: RAEANN ARGUETA on ThuFeb 07, 2020 6:37:11 PM EDT Transcribed by: CB STEWART on ThuFeb 07, 2020 7:00:51 PM EDT Finalized by: RAEANN ARGUETA on ThuFeb 07, 2020 8:25:54 PM EDT [facility] Comment on above: Order Comment: Injur y/Trauma [...] of the report, grossly stable from 10/31/2019. Via[employer]/lab Workstation ID: [id number] [facility] EXAMINATION: XR LUMBAR SPINE 2-3 VIEWS (STANDARD) [...] Vertebral body heights are maintained. There is kvrmphsz-ct-owgjys degenerative disc disease at L2-L3 as well as L1-L2 which remains stable. There is mild degenerative disc disease at the L3-L4 and L4-L5. No destructive osseous lesion. Imaged portion of the right hip arthroplasty are in near anatomic alignment. Degenerative changes of the left hip are noted. [facility] Interface, Rad In [employer] - 02/07/2020 8:28 PM EDT EXAMINATION: [...] Vertebral body heights are maintained. There is tntwvafy-xi-hxjdag degenerative disc disease at L2-L3 as well [...] of the report, grossly stable from 10/31/2019. SYJ/lab Workstation ID: [id number] [facility] Lab Reportson 12-08-2019 Lab Reports [id number] Normal [facility] Vital Signs Date Time Vital Sign Value Performing Clinician Facility 10-20-2023 12:26-0400 Body height 182.9 cm [facility] [employer] Work Phone: [facility] 10-20-2023 12:26-0400 Body mass index (BMI) [Ratio] 27.53 kg/m2 [employer] Work Phone: [facility] 10-20-2023 12:26-0400 Body temperature 98.29 [degF] [facility] [employer] Work Phone: [facility] 10-20-2023 12:26-0400 Body weight 92.08 kg [facility] [employer] Work Phone: [facility] 10-20-2023 12:26-0400 Diastolic blood pressure 75 mm[Hg] [employer] Work Phone: [facility] 10-20-2023 12:26-0400 Heart rate 60 /min [employer] Work Phone: [facility] 10-20-2023 12:26-0400 Respiratory rate 17 /min [employer] Work Phone: [facility] 10-20-2023 12:26-0400 SaO2% (BldA) [Mass fraction] 95 % [employer] Work Phone: [facility] 10-20-2023 12:26-0400 Systolic blood pressure 118 mm[Hg] [employer] Work Phone: [facility] 07-21-2023 15:15-0500 Body height 182.88 cm [employer] Other [employer] Other 07-21-2023 15:15-0500 Body mass index (BMI) [Ratio] 28.21 kg/m2 [employer] Other [employer] Other 07-21-2023 15:15-0500 Body weight 94.35 kg [employer] Other [employer] Other 05-06-2023 14:03-0500 Diastolic blood pressure 75 mm[Hg] PHYSICIAN [facility] [facility] 05-[facility]-2023 14:03-0500 Heart rate 71 /min PHYSICIAN NO [facility] 05-06-2023 14:03-0500 Respiratory rate 18 /min PHYSICIAN NO [facility] 05-06-2023 14:03-0500 SaO2% (BldA) [Mass fraction] 95 % PHYSICIAN NO [facility] 05-06-2023 14:03-0500 Systolic blood pressure 117 mm[Hg] PHYSICIAN NO [facility] 05-06-2023 12:13-0500 Body height 182.88 cm PHYSICIAN NO [facility] 05-06-2023 12:13-0500 Body temperature 97.6 [degF] PHYSICIAN NO [facility] 05-06-2023 12:13-0500 Body weight 94.34 kg PHYSICIAN NO [facility] 05-21-2022 10:45-0500 Body height 182.88 cm Mundo Dang Other [employer] Other 05-21-2022 10:45-0500 Body mass index (BMI) [Ratio] 28.21 kg/m2 Mundo Dang Other [employer] Other 05-21-2022 10:45-0500 Body weight 94.35 kg Mundo Dang Other [employer] Other 05-21-2022 10:45-0500 Diastolic blood pressure 80 mm[Hg] Mundo Dang Other [employer] Other 05-21-2022 10:45-0500 Systolic blood pressure 119 mm[Hg] Mundo Dang Other [employer] Other 12-04-2021 14:45-0400 Body height 182.88 cm Mundo Dang Other [employer] Other 12-04-2021 14:45-0400 Body mass index (BMI) [Ratio] 29.02 kg/m2 Mundo Dang Other [employer] Other 12-04-2021 14:45-0400 Body weight 97.07 kg Mundo Dang Other [employer] Other 11-27-2020 11:07-0400 Body height 182.9 cm Edy Villalpando MD Work Phone: [facility] 11-27-2020 11:07-0400 Body mass index (BMI) [Ratio] 29.84 kg/m2 Edy Villalpando MD Work Phone: [facility] 11-27-2020 11:07-0400 Body weight 99.79 kg Edy Villalpando MD Work Phone: [facility] 11-27-2020 11:07-0400 Diastolic blood pressure 66 mm[Hg] Edy Villalpando MD Work Phone: [facility] 11-27-2020 11:07-0400 Heart rate 85 /min Edy Villalpando MD Work Phone: [facility] 11-27-2020 11:07-0400 Systolic blood pressure 151 mm[Hg] Edy Villalpando MD Work Phone: [facility] 08-15-2020 10:58-0500 BMI (Body Mass Index) 29.84 kg/m2 [facility] 08-15-2020 10:58-0500 Body weight 99.[address] [facility] 08-15-2020 10:58-0500 Height 182.[address] [facility] 05-14-2020 10:39-0500 BMI (Body Mass Index) 29.84 kg/m2 [facility] 05-14-2020 10:39-0500 Body weight 99.[address] [facility] 05-14-2020 10:39-0500 BP Diastolic 74 mm[Hg] [facility] 05-14-2020 10:39-0500 BP Systolic 122 mm[Hg] Ed[facility] 05-14-2020 10:39-0500 Height 182.[address] [facility] 05-14-2020 10:39-0500 Pulse (Heart Rate) 66 /min [facility] 02-07-2020 14:49-0400 BMI (Body Mass Index) 29.02 kg/m2 Ed[facility] 02-07-2020 14:49-0400 Body weight 97.07 kg [facility] 02-07-2020 14:49-0400 Height 182.9 cm [facility] Encounters Encounter Date Encounter Type Care Provider Facility Start: 06-07-2024 End: 06-10-2024 Clinisync Result Encounter Generic External Data Provider [facility] External Department Unsolicited Start: 06-07-2024 End: 06-10-2024 [facility]inisync Result Encounter Generic External Data Provider [facility] External Department Unsolicited Start: 06-07-2024 End: 06-07-2024 Patient encounter procedure Nanci Carvajal MD Work Phone: Urology Comment on above: Encounter for follow -up surveillance of bladder cancer (Primary Dx); History of bladder cancer Start: 06-07-2024 End: 06-07-2024 ambulatory [facility]O [facility] Facility:[facility] Start: 05-02-2024 End: 05-02-2024 Patient encounter procedure NALINI Muniz Work Phone: [facility] [address] Work Phone: Start: 05-02-2024 End: 05-02-2024 ambulatory BIRD SITTER-C Danetterudy Spear Cristy Work Phone: [facility] Work Phone: Start: 03-16-2024 End: 03-16-2024 Patient encounter procedure BIRD SITTER-C Danette Cristy Work Phone: [facility] [address] Work Phone: Start: 03-16-2024 End: 03-16-2024 ambulatory BIRD SITTER-C Danette Beatris Cristy Work Phone: [facility] Work Phone: Start: 01-25-2024 End: 01-25-2024 ambulatory CARLOS POCOS Not Available Start: 01-25-2024 End: 01-25-2024 ambulatory CARLOS POCOS Not Available Start: 01-18-2024 End: 01-18-2024 ambulatory CARLOS POCOS Not Available Start: 12-28-2023 End: 12-28-2023 ambulatory CARLOS POCOS Not Available Start: 12-28-2023 End: 12-28-2023 Patient encounter procedure BIRD SITTER-C Danetterudy Jimenezmer Work Phone: [facility] [address] Work Phone: Start: 12-28-2023 End: 12-28-2023 ambulatory BIRD SITTER-C Danetterudy Spear Cristy Work Phone: [facility] Work Phone: Start: 12-01-2023 End: 12-01-2023 Patient encounter procedure Nanci Carvajal MD Work Phone: Urology Comment on above: Encounter for follow -up surveillance of bladder cancer (Primary Dx); History of bladder cancer Start: 12-01-2023 End: 12-01-2023 ambulatory ISAURO POE Facility:[facility] Start: 10-29-2023 End: 10-29-2023 Patient encounter procedure BIRD SITTER-C Danette Cristy Work Phone: [facility] [address] Work Phone: Start: 10-29-2023 End: 10-29-2023 ambulatory BIRD SITTER-C Danette Spear Cristy Work Phone: [facility] Work Phone: Start: 10-20-2023 End: 10-20-2023 ambulatory ISAURO POE [facility] Start: 10-20-2023 End: 10-20-2023 Encounter for other preprocedural examination SABINA RED [facility] Amb[facility] Start: 10-20-2023 End: 10-20-2023 Office outpatient new 30 minutes Sabina Red DO Work Phone: [facility] Comment on above: Pre-operative examin ation (Primary Dx); Traction detachment of right retina; Rheumatoid arthritis, involving unspecified site, unspecified whether rheumatoid factor present (HCC); Essential (primary) hypertension; Gastroesophageal reflux disease, unspecified whether esophagitis present; JOHNATHON (obstructive sleep apnea) Start: 10-20-2023 End: 10-20-2023 Preprocedural examination done Sabina Red DO Work Phone: [facility] Work Phone: Start: 09-24-2023 End: 09-24-2023 ambulatory AILYN PATINO Not Available Start: 09-08-2023 End: 09-08-2023 ambulatory AILYN PATINO Not Available Start: 07-21-2023 End: 07-21-2023 Patient encounter procedure BIRD SITTER-C Danette Muniz Work Phone: [facility] [address] Work Phone: Start: 07-21-2023 End: 07-21-2023 ambulatory BIRD SITTER-C Danette Beatris Cristy Work Phone: [facility] Work Phone: Start: 07-21-2023 Office outpatient vi sit 15 minutes Mundo Laurence [facility] Start: 06-02-2023 End: 06-02-2023 Patient encounter procedure Nanci Carvajal MD Work Phone: Urology Comment on above: Encounter for follow -up surveillance of bladder cancer (Primary Dx); History of bladder cancer Start: 06-02-2023 End: 06-02-2023 Subsequent hospital visit by physician Ct 2 Main Qb (I-Stat) Radiology Comment on above: Malignant neoplasm o f urinary bladder, unspecified site (HCC) [C67.9] Start: 05-25-2023 End: 05-25-2023 Patient encounter procedure BIRD SITTER-C Danette Muniz Work Phone: [facility] [address] Work Phone: Start: 05-25-2023 End: 05-25-2023 ambulatory BIRD SITTER-C Danette Muniz Work Phone: [facility] Work Phone: Start: 05-06-2023 End: 05-06-2023 Admission to same day surgery center PHYSICIAN NO [facility] Work Phone: Start: 05-06-2023 End: 05-06-2023 ambulatory PHYSICIAN NO [facility] Work Phone: Start: 04-17-2023 End: 04-17-2023 ambulatory Mundo Dang Other [employer] Other Start: 04-17-2023 Telephone encounter Mundo neville [facility] Start: 03-17-2023 End: 03-17-2023 ambulatory PHYSICIAN NO [facility] Work Phone: Start: 03-17-2023 End: 03-17-2023 Patient encounter procedure PHYSICIAN NO [facility] [address] Work Phone: Start: 02-24-2023 End: 02-24-2023 ambulatory PHYSICIAN NO [facility] Work Phone: Start: 02-24-2023 End: 02-24-2023 Patient encounter procedure PHYSICIAN NO [facility] [address] Work Phone: Start: 01-26-2023 End: 01-26-2023 ambulatory PHYSICIAN NO [facility] Work Phone: Start: 01-26-2023 End: 01-26-2023 Patient encounter procedure PHYSICIAN NO [facility] [address] Work Phone: Start: 01-12-2023 End: 01-12-2023 ambulatory PHYSICIAN NO [facility] Work Phone: Start: 01-12-2023 End: 01-12-2023 Patient encounter procedure PHYSICIAN NO [facility] [address] Work Phone: Start: 12-23-2022 End: 12-23-2022 Patient encounter procedure PHYSICIAN NO [facility] [address] Work Phone: Start: 12-16-2022 End: 12-16-2022 ambulatory PHYSICIAN NO [facility] Work Phone: Start: 12-16-2022 End: 12-16-2022 Patient encounter procedure PHYSICIAN NO [facility] [address] Work Phone: Start: 11-22-2022 [...] 07-01-2022 ambulatory MD Zhou Fischer Work Phone: [facility] Work Phone: Start: 07-01-2022 End: 07-01-2022 Patient encounter procedure MD Zhou Fischer Work Phone: [facility] [address] Work Phone: Start: 06-30-2022 End: 06-30-2022 ambulatory DANETTE MUNIZ Facility:[facility] Start: 05-21-2022 End: 05-21-2022 ambulatory Mundo Dang Other [facility] [employer] Other Start: 05-21-2022 Office outpatient vi sit 15 minutes Mundo Dang [facility] Gastroenterology Start: 05-15-2022 End: 05-16-2022 ambulatory [facility] Start: 05-15-2022 End: 05-15-2022 Subsequent hospital visit by physician Lianna [facility] (I-Stat) Work Phone: [facility] Radiology CT Scan Comment on above: Malignant neoplasm o f urinary bladder, unspecified site (HCC) [C67.9] Start: 05-02-2022 Telephone encounter Nanci desir MD Work Phone: Urology Comment on above: [employer] Start: 04-21-2022 Telephone encounter [...] 12-04-2021 End: 12-04-2021 ambulatory Mundo Dang Other [facility] [employer] Other Start: 12-04-2021 Office outpatient ne w 45 minutes Mundo Dang [facility] Gastroenterology Start: 11-11-2021 End: 11-12-2021 ambulatory DANETTE HOOPER [facility] Start: 11-11-2021 End: 11-11-2021 Subsequent hospital visit by physician [facility] Covid19 Pat Screening Schedule MW PRE [...] MD Work Phone: Urology Comment on above: [employer] Start: 06-13-2021 End: 06-16-2021 ambulatory ZEINAB LOMELI [facility] Start: 06-13-2021 End: 06-15-2021 Subsequent hospital visit by physician [facility] Chad Casanova [facility] Radiology Comment on above: Right hip pain Start: 06-13-2021 End: 06-16-2021 [facility] Start: 11-27-2020 End: 11-27-2020 Office outpatient visit 15 minutes Edy Villalpando MD Work Phone: [facility] Comment on above: Spinal stenosis of l umbar region without neurogenic claudication (Primary Dx); Lumbar degenerative disc disease Start: 11-09-2020 End: 11-09-2020 Documentation procedure Darlene Calderon LPN [facility] Start: 08-15-2020 End: 08-15-2020 Clinical Support Edy Villalpando Work Phone: [facility] Comment on above: Spondylolisthesis of lumbar region (Primary Dx); Spinal stenosis of lumbar region without neurogenic claudication; Lumbar degenerative disc disease Start: 08-06-2020 End: 08-06-2020 Orders Only Martha Polanco Jacinto Work Phone: [facility] Start: 05-15-2020 End: 05-15-2020 Clinical Support Edy Villalpando Work Phone: [facility] Comment on above: Spondylolisthesis of lumbar region (Primary Dx); Lumbar degenerative disc disease Start: 05-14-2020 End: 05-14-2020 Documentation procedure Darlene Calderon [facility] Start: 05-14-2020 End: 05-15-2020 Patient encounter procedure EDY VELASCO [facility] Start: 05-14-2020 End: 05-14-2020 Subsequent hospital visit by physician Edy Villalpando Work Phone: [facility] Comment on above: Pain Start: 05-14-2020 End: 05-14-2020 Office outpatient visit 15 minutes Edy Villalpando Work Phone: [facility] Comment on above: Spondylolisthesis of lumbar region (Primary Dx); Lumbar degenerative disc disease Start: 05-08-2020 End: 05-09-2020 Patient encounter procedure EDY VELASCO [facility] Start: 05-08-2020 End: 05-08-2020 Subsequent hospital visit by physician Edy Villalpando Work Phone: [facility] MRI Comment on above: Spondylolisthesis of lumbar region; Back pain, unspecified back location, unspecified back pain laterality, unspecified chronicity Start: 03-16-2020 End: 03-16-2020 Subsequent hospital visit by physician Liss Rico Work Phone: [facility] Start: 03-14-2020 End: 03-14-2020 Subsequent hospital visit by physician Cb Cunningham [facility] Comment on above: Arrived Start: 03-09-2020 End: 03-09-2020 Subsequent hospital visit by physician Cb Cunningham [facility] Comment on above: Arrived Start: 03-07-2020 End: 03-07-2020 Subsequent hospital visit by physician Linda Gardner [facility] Physical Therapy Comment on above: Arrived Start: 03-02-2020 End: 03-02-2020 Subsequent hospital visit by physician Linda Gardner [facility] Physical Therapy Comment on above: Arrived Start: 02-28-2020 End: 02-28-2020 Subsequent hospital visit by physician Linda Gardner [facility] Physical Therapy Comment on above: Arrived Start: 02-23-2020 End: 02-23-2020 Subsequent hospital visit by physician Linda Gardner [facility] Physical Therapy Comment on above: Arrived Start: 02-21-2020 End: 02-21-2020 Subsequent hospital visit by physician Linda Gardner [facility] Physical Therapy Comment on above: Arrived Start: 02-15-2020 End: 02-15-2020 Subsequent hospital visit by physician Cb Cunningham [facility] Physical Therapy Comment on above: Arrived Start: 02-07-2020 End: 02-08-2020 Patient encounter procedure EDY VILLALPANDO [facility] Start: 02-07-2020 End: 02-07-2020 Subsequent hospital visit by physician Edy Villalpando Work Phone: [facility] Comment on above: Pain Start: 02-07-2020 End: 02-07-2020 Office outpatient new 30 minutes Isauro Poe Work Phone: [facility] Comment on above: Spondylolisthesis of lumbar region (Primary Dx); Back pain, unspecified back location, unspecified back pain laterality, unspecified chronicity Procedures Date Procedure Procedure Detail Performing Clinician Start: 06-07-2024 [facility] CYTOLOGY NON-DISH CARRIER Generic External Data Provider Start: 12-01-2023 Urnls dip stick/tablet rgnt auto [...] Start: 11-11-2021 COVID-19, RAPID Danette S Barb ACUPUNCTURIST - [employer] Work Phone: Start: 11-11-2021 Iaadiadoo influenza Danette S Barb ACUPUNCTURIST - TONGER Work Phone: Start: 06-13-2021 Radex hip unilateral with pelvis 2-3 views Zeinab Lomeli DO Work Phone: Start: 08-15-2020 Inject spine lumbar/sacral Edy Villalpando Work Phone: Start: 05-14-2020 Radex spine lumbosacral minimum 4 views Edy Villalpando Work Phone: Start: 05-08-2020 MRI of lumbar spine without contrast Edy Villalpando Work Phone: Start: 02-07-2020 Radex spine lumbosacral 2/3 views Flaquito Villalpando Work Phone: Plan of Treatment Date Care Activity Detail Author Start: 01-25-2025 End: 01-25-2025 Patient encounter procedure 01/25/2025 10:00 AM EDT Office Visit CHERYL CAMACHO [address] [place] [id number] Zeinab Lomeli DO [address] [place] [address] [facility] Start: 12-06-2024 End: 07-07-2025 CT Kidney WO and W contrast IV CT UROGRAM WO/W IVCON Radiology Routine History of bladder cancer Expected: 12/06/2024 (Approximate), Expires: 07/07/2025 [facility] Work Phone: Comment on above: Expected: 12/06/2024 (Approximate), Expires: 07/07/2025 Start: 06-07-2024 End: 09-06-2024 CREATININE BLD CREATININE BLD Lab Routine History of bladder cancer Expected: 06/07/2024, Expires: 09/06/2024 [facility] Comment on above: Expected: 06/07/2024 , Expires: 09/06/2024 Start: 02-28-2024 Covid-19 Vaccine ( season) Covid-19 Vaccine () [facility] Start: 02-28-2024 Influenza vaccination [facility] Start: 07-23-2023 DIABETES SCREEN DIABETES SCREEN [facility] Start: 07-23-2023 Diabetes Screening Diabetes Screenin g [facility] Start: 06-29-2023 Advance Directive Discussion Advance Directive Discussion [facility] Start: 06-29-2023 Behavioral Health Screening Behavioral Health Screening [facility] Start: 05-06-2023 [facility] Start: 02-27-2023 Covid-19 Vaccine ( season) Covid-19 Vaccine () [facility] Start: 02-27-2023 Influenza vaccination C [facility] Start: 07-04-2022 End: 05-03-2023 Ct abdomen & pelvis w/o contrst 1/> body re CT UROGRAM WO/W IVCON Radiology Routine Malignant neoplasm of urinary bladder, unspecified site (HCC) History of bladder cancer Expected: 07/04/2022, Expires: 05/03/2023 [facility] Work Phone: Comment on above: Expected: 07/04/2022 , Expires: 05/03/2023 Start: 07-01-2022 Hemolytic complement CH50 level [facility] Start: 06-29-2022 ADVANCE DIRECTIVE DISCUSSION ADVANCE DIRECTIVE DISCUSSION [facility] Start: 06-29-2022 DEPRESSION ASSESSMENT DEPRESSION ASS ESSMENT [facility] Start: 05-02-2022 End: 07-02-2022 CREATININE BLD CREATININE BLD Lab Routine Malignant neoplasm of urinary bladder, unspecified site (HCC) Abnormal urine cytology Expected: 05/02/2022, Expires: 07/02/2022 [facility] Work Phone: Comment on above: Expected: 05/02/2022 , Expires: 07/02/2022 Start: 04-03-2022 End: 06-03-2022 CREATININE BLD CREATININE BLD Lab Routine Malignant neoplasm of urinary bladder, unspecified site (HCC) History of bladder cancer Expected: 04/03/2022, Expires: 06/03/2022 [facility] Work Phone: Comment on above: Expected: 04/03/2022 , Expires: 06/03/2022 Start: 02-27-2022 Influenza vaccination INFLUENZA (#1) [facility] Start: 11-21-2021 Medicare Annual Well ness (AWV) Medicare Annual Wellness (AWV) [facility] Start: 10-03-2021 COVID-19 VACCINE (4 - Booster for Pfizer series) COVID-19 VACCINE (4 - Booster for Pfizer series) [facility] Start: 07-30-2021 COVID-19 VACCINE (4 - Booster for Pfizer series) COVID-19 VACCINE (4 - Booster for Pfizer series) [facility] Start: 07-27-2021 Pneumococcal 65+ yea rs Vaccine (2 - PCV) Pneumococcal 65+ years Vaccine (2 - PCV) [facility] Start: 07-27-2021 Pneumococcal vaccination Pneum ococcal Vaccine Age 65+ (2 of 2 - PCV13) [facility] Start: 06-29-2021 ADVANCE DIRECTIVE DISCUSSION ADVANCE DIRECTIVE DISCUSSION [facility] Start: 06-29-2021 DEPRESSION ASSESSMENT DEPRESSION ASS ESSMENT [facility] Start: 06-07-2021 Shingles Vaccine (2 of 2) Shingles Vaccine (2 of 2) [facility] Start: 11-27-2020 End: 11-27-2020 Admission to same day surgery center 11/27/2020 Clinical Support Orthopedic Surgery Edy Villalpando MD [address] [place] [id number] [phone] [facility] Start: 11-12-2020 End: 11-12-2020 Clinical Support 11/12/2020 Clinical Support Orthopedic Surgery Edy Villalpando MD [address] [place] [address] [phone] [facility] Start: 05-15-2020 End: 05-15-2020 Clinical Support 05/15/2020 Clinical Support Orthopedic Surgery Edy Villalpando MD [address] [place] [address] [phone] [facility] Start: 05-14-2020 End: 05-14-2020 Office Visit 05/14/2020 Office Visit Orthopedic Surgery Edy Villalpando MD [address] [place] [address] [phone] [facility] Start: 03-16-2020 End: 03-16-2020 Appointment 03/16/2020 Appointment Physical Therapy Liss Rico, PT [address] [place] [address] [phone] [facility] Start: 03-14-2020 End: 03-14-2020 Appointment 03/14/2020 Appointment Physical Therapy Cb Cunningham, PT [facility] Start: 03-09-2020 End: 03-09-2020 Appointment 03/09/2020 Appointment Physical Therapy Linda Gardner [facility] Start: 03-07-2020 End: 03-07-2020 Appointment 03/07/2020 Appointment Physical Therapy [facility] Start: 03-02-2020 End: 03-02-2020 Appointment 03/02/2020 Appointment Physical Therapy [facility] Start: 02-28-2020 Influenza vaccination Flu vaccine (# 1) [place] Start: 02-28-2020 Influenza vaccinatio n given Sequential Influenza Vaccine (#1) [facility] Start: 02-28-2020 End: 02-28-2020 Appointment 02/28/2020 Appointment Physical Therapy [facility] Start: 02-23-2020 End: 02-23-2020 Appointment 02/23/2020 Appointment Physical Therapy [facility] Start: 02-21-2020 End: 02-21-2020 Appointment 02/21/2020 Appointment Physical Therapy [facility] Start: 05-27-2018 Lipid panel [facility] Start: 04-24-2017 History and physical examination, annual for health maintenance Wellness Visit [facility] Start: 01-01-2016 Abdominal aortic aneurysm screening AAA screen [facility] Start: 01-01-2016 Fall risk assessment Falls Risk Asse ssment [facility] Start: 01-01-2016 Pneumococcal 65+ yea rs Vaccine (1 of 1 - PPSV23) Pneumococcal 65+ years Vaccine (1 of 1 - PPSV23) [place] Start: 01-01-2016 Pneumococcal vaccination Pneum ococcal Vaccine Age 65+ (1 of 2 - PCV13) [facility] Start: 01-01-2016 Pneumococcal Vaccine : Age 65+ (1 of 1 - PPSV23) Pneumococcal Vaccine: Age 65+ (1 of 1 - PPSV23) [facility] Start: 01-01-2016 PNEUMOCOCCAL: 65+ (1 - PCV) PNEUMOCOCCAL: 65+ (1 - PCV) [facility] Start: 01-01-2016 PNEUMOVAX AGE 65 AND OVER WITH 5YR LOOKBACK (#1) PNEUMOVAX AGE 65 AND OVER WITH 5YR LOOKBACK (#1) [facility] Start: 2010 RSV Vaccine (1 - 1-d ose 60+ series) RSV Vaccine (1 - 1-dose 60+ series) [facility] Start: 2010 RSV Vaccine (1 - Ris k 60-74 years 1-dose series) RSV Vaccine (1 - Risk 60-74 years 1-dose series) [facility] Start: 2000 Administration of he rpes zoster vaccine Zoster Vaccines (1 of 2) [facility] Start: 2000 Screening for malign ant neoplasm of colon [place] Start: 2000 Shingles Vaccine (1 of 2) Shingles Vaccine (1 of 2) [place] Start: 2000 SHINGRIX VACCINE (1 of 2) SHINGRIX VACCINE (1 of 2) [facility] Start: 01-01-1996 COLOGUARD (FIT-DNA) COLOGUARD (FIT-D NA) [facility] Start: 01-01-1996 Colonoscopy COLONOSCOPY [facility] Start: 01-01-1996 COLORECTAL CANCER SCREENING COLORECTAL CANCER SCREENING [facility] Start: 01-01-[address] COLONOGRAPHY [facility] Start: 01-01-1996 FECAL OCCULT BLOOD FECAL OCCULT BLOO D [facility] Start: 01-01-1996 Screening for malign ant neoplasm of colon [facility] Start: 01-01-1996 SIGMOIDOSCOPY SIGMOIDOSCOPY [facility] Start: 1985 Lipid 1996 panel - S honey or Plasma Lipid Screening [facility] Start: 1985 Lipid panel Lipid Screening [facility] Start: 1985 LIPID SCREEN LIPID SCREEN [facility] Start: 1969 DTaP/Tdap/Td vaccine (1 - Tdap) DTaP/Tdap/Td vaccine (1 - Tdap) [facility] Start: 1969 SHINGRIX VACCINE (1 of 2) SHINGRIX VACCINE (1 of 2) [facility] Start: 1969 Urine microalbumin profile [facility] Start: 1968 Anxiety Screening Anxiety Screening [facility] Start: 1968 Depression Screening Depression Scre ening [facility] Start: 1968 Hepatitis C antibody , confirmatory test Hepatitis C Screening [facility] Start: 1968 Hepatitis C screening [facility] Start: 1968 HEPATITIS C SCREENING HEPATITIS C SC REENING [facility] Start: 1966 COVID-19 Vaccine (1 of 2) COVID-19 Vaccine (1 of 2) [facility] Start: 1962 Adolescent depressio n screening assessment [facility] Start: 1962 COVID-19 Vaccine (1) COVID-19 Vaccin e (1) [facility] Start: 1962 Depression Screen Depression Screen [facility] Start: 1962 Depression screening using PHQ-9 (Patient Health Questionnaire 9) score [facility] Start: 1956 Pneumococcal Vaccine : 65+ (1 - PCV) Pneumococcal Vaccine: 65+ (1 - PCV) [facility] Start: 1956 PNEUMOCOCCAL: 65+ (1 - PCV) PNEUMOCOCCAL: 65+ (1 - PCV) [facility] Start: 1953 History and physical examination, annual for health maintenance Wellness Visit [facility] Start: 1950 Abdominal aortic aneurysm screening [facility] Start: 1950 ABDOMINAL AORTIC ANEURYSM SCREENING ABDOMINAL AORTIC ANEURYSM SCREENING [facility] Start: 1950 Fall risk assessment Falls Risk Asse ssment [facility] Start: 1950 Hepatitis C screening Hepatitis C sc reen [facility] Start: 1950 Prostate specific antigen measurement PSA Level [facility] Start: 1950 Screening for malign ant neoplasm of colon [facility] Start: 1950 Tetanus vaccination Tetanus: Every 1 0yrs [facility] Start: 1950 US scan of abdominal aorta Abdominal Aortic Ultrasound [facility] End: 06-01-2023 Ct abdomen & pelvis w/o contrst 1/> body re CT UROGRAM WO/W IVCON Radiology Routine Malignant neoplasm of urinary bladder, unspecified site (HCC) 1 Occurrences starting 05/02/2022 until 06/01/2023 [facility] Work Phone: Comment on above: 1 Occurrences starti ng 05/02/2022 until 06/01/2023 CYTOLOGY NON-DISH CARRIER CYTOLOGY NON-GY N Lab Routine Encounter for follow-up surveillance of bladder cancer 07/08/2022 3:27 PM EST [facility] Work Phone: CYTOLOGY NON-DISH CARRIER CYTOLOGY NON-GY N Lab Routine Encounter for follow-up surveillance of bladder cancer History of bladder cancer 10/21/2022 3:43 PM EDT [facility] Work Phone: CYTOLOGY NON-DISH CARRIER CYTOLOGY NON-GY N Lab Routine Encounter for follow-up surveillance of bladder cancer History of bladder cancer 06/02/2023 1:40 PM EST [facility] Work Phone: CYTOLOGY NON-DISH CARRIER CYTOLOGY NON-GY N Lab Routine Encounter for follow-up surveillance of bladder cancer History of bladder cancer 12/01/2023 2:53 PM EDT [facility] Work Phone: CYTOLOGY NON-DISH CARRIER CYTOLOGY NON-GY N Lab Routine History of bladder cancer 06/07/2024 2:18 PM EST [facility] Patient Education Esophageal Dil ation Hiatal Hernia (DC) [facility] Work Phone: [facility] Immunizations Immunization Date Immunization Notes Care Provider Evette clay 04-12-2021 influenza virus vacc ine, unspecified formulation Ct (I-Stat) Work Phone: [facility] Payers Date Payer Category Payer Self-pay 2023 Unknown [id number] 2021 Private Health Insurance [facility] [id number] 2021 Unknown [id number] 2020 Unknown [id number] 1.13.159.2 .[id number] 2017 Unknown NABILA MCCOY [place] [facility] [place] 2017-Present xxxxxxxxxxxx [id number] .[id number] 2017 Unknown [id number] 1.2.840.238182.1.13.385.2 .7.3.892839.315 2012 Medicare MEDICARE MEDICAR E PART A & B xxxxxxxxxxx 2012-Present [place] xxxxxxxxxxx [id number] .7.3.148640.315 2012 Medicare [id number] 1.2.840.637310.1.13.385.2 .7.3.043890.315 2012 Medicare [id number]. 1.13.159.2 .7.3.986649.315 1959 Medicare [id number] 1.2.840.006170.1.13.239.2 .7.3.509648.315 1959 Medicare [id number] 1959 Unknown [id number] 1.2.840.058227.1.13.239.2 .7.3.357738.315 1950 Unknown [id number] 2.16.840.1.004108.3.579.2 .903 1950 Unknown [id number] 2.16.840.1.024395.3.579.2 .903 1950 Unknown [id number] 2.16.840.1.900129.3.579.2 .903 1950 Unknown [id number] 2.16.840.1.729313.3.579.2 .174 1950 Unknown [id number] 2.16.840.1.581748.3.579.2 .174 1950 Unknown [id number] 2.16.840.1.582516.3.579.2 .174 1950 Unknown [id number] 2.16.840.1.004594.3.579.2 .174 1950 Unknown [id number] 2.16.840.1.064173.3.579.2 .593 1950 Unknown [id number] 2.16.840.1.682803.3.579.2 .593 1950 Unknown [id number] 2.16.840.1.850992.3.579.2 .593 1950 Unknown [id number] 2.16.840.1.623356.3.579.2 .593 1950 Unknown [id number] 2.16.840.1.149339.3.579.2 .903 1950 Unknown [id number] 2.16.840.1.368943.3.579.2 .1259 1950 Unknown [id number] 2.16.840.1.808811.3.579.2 .1259 1950 Unknown [id number] 2.16.840.1.002359.3.579.2 .1259 1950 Unknown [id number] 2.16.840.1.006249.3.579.2 .1259 1950 Unknown [id number] 2.16.840.1.207923.3.579.2 .1259 1950 Unknown [id number] 2.16.840.1.960939.3.579.2 .1259 1950 Unknown [id number] 2.16.840.1.524847.3.579.2 .1259 1950 Unknown [id number] 2.16.840.1.826186.3.579.2 .1259 1950 Unknown [id number] 2.16.840.1.518856.3.579.2 .1259 Blue Cross Blue Shield [id number] 2.16840.1.731112.19 Medicare Medicare Outpatient [id number] Private Health Insurance [facility] [id number] Unknown [id number] 2.16.840.1.526838.3.579.2 .531 Unknown [id number] 2.16.840.1.807527.3.579.2 .531 Unknown [id number] 2.16.840.1.005638.3.579.2 .531 Unknown [id number] 2.16.840.1.003608.3.579.2 .531 Unknown [id number] 2.16.840.1.932430.3.579.2 .531 Unknown [id number] 2.16.840.1.007890.3.579.2 .531 Social History Date Type Detail Facility Start: 02-07-2020 End: 12-28-2023 Tobacco smoking status SCIS Former smoker [facility] Start: 02-07-2020 End: 10-20-2023 Alcohol intake Ex-drinker (finding) [facility] Start: 1950 Sex Assigned At Not on file [facility] Start: 10-14-2021 End: 05-15-2022 Exposure to SARS-CoV-2 (event) Not sure [facility] End: 03-24-2002 History of tobacco use Current smoker [place] Start: 09-12-2017 End: 12-28-2023 Tobacco use and exposure Never used [place] Start: 09-12-2017 End: 11-11-2021 Alcohol intake Current drinker of alcohol (finding) [place] Start: 03-24-2013 Alcohol Comment rarely [place] Start: 08-02-2020 End: 01-25-2024 Sex Assigned At [facility] Start: 1950 Sex Assigned At Male F [facility] Start: 08-02-2020 End: 01-25-2024 History of Social function [facility] National Score (1-100), lower number is lower risk 77 [facility] End: 06-29-2001 History of tobacco use Cigarette Smoker [facility] Start: 01-25-2024 Alcoholic beverage intake Lifetime non-drinker (finding) [facility] Start: 01-30-2023 Alcohol Comment caffeine intak e: 1-2 cups per day [facility] Start: 12-21-2023 Gender identity Identifies as male gender (finding) [facility] Goals Date Patient Goal Desired Activity /State Clinical Notes 11-09-2020 to 06-09-2024 Nanci Carvajal MD - 06/07/2024 2:11 PM Gregorio Padgett RN - 06/07/2024 1:56 PM Anni Saenz LPN - 12/01/2023 2:52 PM Nanci Davey MD - 12/01/2023 2:45 PM EDT Note Date & Type Note Facility 06-09-2024 Note [facility] DIAGNOSIS COMMENT The case was reviewed in consultation with Dr. Rachel Boone, who concurs. [facility] 06-07-2024 Note The case was reviewe d in consultation with Dr. Rachel Boone, who concurs. [facility] Comment on above: Order Comment: Speci men Type: URINE SPECIMEN Ordering Facility: [facility] Address: [address] [place] [address] Performed By: #### C YTONON #### [facility] CLIA [id number] [address] [place] [address] [place] [address] [place] 06-07-2024 Note HNO ID: [id number] Author: NANCI CARVAJAL MD Service: ? Author Type: Physician Type: Progress Notes Filed: 06/07/2024 15:24 Note Text: PHYSICIANS NOTE: CYSTOSCOPY PROCEDURE: June 07, 2024 Sign In History and Physical Exam reviewed [...] finishing 03/05/2021 Last cystoscopy 06/02/2023 CT Urogram 11/2023 - neg Details of Procedure: After sterile prep and drape, the flexible cystoscope was placed through the urethra which was examined in its entirety. Urethral stricture: None The entire mucosa was examined. The scope was flexed in the dome of the bladder and used to look at the bladder in retroverted fashion. Findings: Normal UOs bilaterally Prior resection sites noted No mucosal lesions, no papillary tumors Prostate enlarged Normal urethra The scope was removed with a repeat examination of the prostate and penile urethra done during removal. Plan - trial flomax - cytology - cystoscopy 6 months - CT urogram 6 months Nanci Carvajal MD [facility] 06-07-2024 History of Present illness Narrative PHYSICIANS NOTE: CYSTOSCOPY PROCEDURE: June 07, 2024 Sign In History and Physical Exam reviewed [...] finishing 03/05/2021 Last cystoscopy 06/02/2023 CT Urogram 11/2023 - neg Details of Procedure: After sterile prep and drape, the flexible cystoscope was placed through the urethra which was examined in its entirety. Urethral stricture: None The entire mucosa was examined. The scope was flexed in the dome of the bladder and used to look at the bladder in retroverted fashion. Findings: \ Normal UOs bilaterally Prior resection sites noted No mucosal lesions, no papillary tumors Prostate enlarged Normal urethra The scope was removed with a repeat examination of the prostate and penile urethra done during removal. Plan - trial flomax - cytology - cystoscopy 6 months - CT urogram 6 months Nanci Carvajal MD Patient ID with (2) Identifiers, Verified by: Gregorio Higgins RN Actual procedure/procedure scheduled: Yes Performing provider/scheduled provider: Yes Patient was roomed in: Q9- 06 Slip Filler offered:Patient declines Patient arrived in the room at: 1352 Patient ready for procedure: 1403 The procedure started at ( Time Only): 1413 The procedure ended at: 1415 Was the procedure delayed: Yes: Room turn around/patient delay ProNox Utilized: No The patient left the procedure room at: 1425 Gregorio Higgins RN PRE PROCEDURE ASSESSMENT- Cysto Latex Allergy: No Allergies reviewed and updated. Yes Pre-Procedure Vital Signs: BP: 138/91 Pulse: 91 Heart valve replacement: No Joint replacement: Yes Back Office UA otained: no PROCEDURE PREP-Cysto Patient Prep: Betadine Placement of Sterile Drape: COMPLETED Anesthetic Given:see milton Higgins RN POST PROCEDURE NURSE ASSESSMENT Present along with physician during procedure exam. Gregorio Higgins RN Current pain intensity is 0 on a 0-10 pain scale. Gregorio Higgins RN AMBULATORY PATIENT EDUCATION THE FOLLOWING WAS EVALUATED Motivation To Learn: Interested Family/Significant Other Support: None - Unavailable/disinterested Cognitive Ability: Alert/Oriented Method of Instruction: Individual instruction Written instruction/Handouts Verbal instruction The Following Influencing Factors Were Barriers To This Education Session: None The Following Physical Limitations Were Barriers To This Education Session: None Instruction Provided To: Patient Typewriter Aligner Present: not applicable Discipline: Nursing Learning Topic: SURVIVAL SKILLS: Complication Prevention Patient Evaluation: Verbalizes understanding: Yes Supplemental Material Given: None Instructed By Gregorio Higgins RN In Department Urology . UNIVERSAL PROTOCOL / SAFETY CHECKLIST Procedure to [...] Plan of Care Visit completed when applicable. Gregorio Higgins RN documented in this encounter [facility] 06-07-2024 Note HNO ID: [id number] Author: GREGORIO HIGGINS RN Service: ? Author Type: Registered Nurse Type: Progress Notes Filed: 06/07/2024 14:17 Note Text: Patient ID with (2) Identifiers, Verified by: Greogrio Higgins RN Actual procedure/procedure scheduled: Yes Performing provider/scheduled provider: Yes Patient was roomed in: Q9- 06 Slip Filler offered:Patient declines Patient arrived in the room at: 1352 Patient ready for procedure: 1403 The procedure started at ( Time Only): 1413 The procedure ended at: 1415 Was the procedure delayed: Yes: Room turn around/patient delay ProNox Utilized: No The patient left the procedure room at: 1425 Gregorio Higgins RN PRE PROCEDURE ASSESSMENT- Cysto Latex Allergy: No Allergies reviewed and updated. Yes Pre-Procedure Vital Signs: BP: 138/91 Pulse: 91 Heart valve replacement: No Joint replacement: Yes Back Office UA otained: no PROCEDURE PREP-Cysto Patient Prep: Betadine Placement of Sterile Drape: COMPLETED Anesthetic Given:see milton Higgins RN POST PROCEDURE NURSE ASSESSMENT Present along with physician during procedure exam. Gregorio Higgins RN Current pain intensity is 0 on a 0-10 pain scale. Gregorio Higgins RN AMBULATORY PATIENT EDUCATION THE FOLLOWING WAS EVALUATED Motivation To Learn: Interested Family/Significant Other Support: None - Unavailable/disinterested Cognitive Ability: Alert/Oriented Method of Instruction: Individual instruction Written instruction/Handouts Verbal instruction The Following Influencing Factors Were Barriers To This Education Session: None The Following Physical Limitations Were Barriers To This Education Session: None Instruction Provided To: Patient Typewriter Aligner Present: not applicable Discipline: Nursing Learning Topic: SURVIVAL SKILLS: Complication Prevention Patient Evaluation: Verbalizes understanding: Yes Supplemental Material Given: None Instructed By Gregorio Higgins RN In Department Urology . UNIVERSAL PROTOCOL / SAFETY CHECKLIST Procedure to [...] Plan of Care Visit completed when applicable. Gregorio Higgins RN [facility] 12-01-2023 Note HNO ID: [id number] Author: ANNI JOHNSTON LPN Service: ? Author [...] Visit completed when applicable. Anni Johnston LPN [facility] 12-01-2023 History of Present illness Narrative [...] Nanci Carvajal MD documented in this encounter [facility] 12-01-2023 Note HNO ID: [id number] Author: NANCI CARVAJAL MD Service: ? Author [...] CT urogram 12 months Nanci Carvajal MD [facility] 12-01-2023 Nurse Note Actual procedure/procedure scheduled: Yes Performing provider/scheduled provider: Yes Patient was roomed in: Q9- 09 Slip Filler offered:Patient declines Patient arrived in the room [...] valve replacement: No Joint replacement: Yes, hip 2010 Back Office UA otained: yes PROCEDURE PREP-Cysto [...] Education Session: None Instruction Provided To: Patient Typewriter Aligner Present: not applicable Discipline: Nursing Learning Topic: SURVIVAL SKILLS: Symptom Management Patient Evaluation: Verbalizes understanding: Yes Supplemental Material Given: Written Material Instructed By Anni Johnston LPN In Department Urology . [facility] 12-01-2023 Nurse Note Actual procedure/procedure scheduled: Yes Performing provider/scheduled provider: Yes Patient was roomed in: Q9- 09 Slip Filler offered:Patient declines Patient arrived in the room [...] valve replacement: No Joint replacement: Yes, hip 2010 Back Office UA otained: yes PROCEDURE PREP-Cysto [...] Education Session: None Instruction Provided To: Patient Typewriter Aligner Present: not applicable Discipline: Nursing Learning Topic: SURVIVAL SKILLS: Symptom Management Patient Evaluation: Verbalizes understanding: Yes Supplemental Material Given: Written Material Instructed By Anni Johnston LPN In Department Urology . documented in this encounter [facility] 10-20-2023 History of Present illness Narrative HISTORY [...] ONCE A WEEK REMEBER YOUR STANDING LABS dyjnfuep-ngr-nxcqfck sulfate (One Daily Multi-Vit w-Mineral) 4.5 mg iron Tab Take by mouth . omeprazole (PRILOSEC) 40 MG capsule Take 20 mg by mouth daily . pyridoxine HCl, vitamin B6, (VITAMIN B-6 ORAL) Take 100 mg by mouth . gluc garcia/chondro garcia A/vit C/Mn (GLUCOSAMINE 1500 COMPLEX ORAL) Take [...] Q-T Interval (corrected) QTC Calculation (Bezet) P [place] R [place] T [place] IMPRESSION/PLAN Timur Francisco is a 72 y.o. male who presents for preoperative medical risk stratification prior to eye surgery at the request of No ref. provider found. Risk factors for surgery [...] Red DO 10/20/23 documented in this encounter [facility] 07-21-2023 Evaluation note Encounter Date Diagnosis Assessment Notes Jun, Schatzki's ring (ICD-10 - Q39.4) The patient has no further dysphagia after the EGD with dilation. He should continue his Omeprazole & follow up in the office as needed Jun, Hiatal hernia (ICD-10 - K44.9) The patient has a small hiatla hernia with a schatzki's ring above this. [employer] Other 12-05-2023 History of Present illness Narrative* Brisa Nieto [...] WNL Nanci Carvajal MD [facility] Note* Brisa Nieto RN - 06/02/2023 1:29 PM EST Actual procedure/procedure scheduled: Yes Performing provider/scheduled provider: Yes Patient was roomed in: Q9- 06 Slip Filler offered:Patient accepts, visit chaperoned by Patient arrived [...] Education Session: None Instruction Provided To: Patient Typewriter Aligner Present: not applicable Discipline: Nursing Learning Topic: SURVIVAL SKILLS: Complication Prevention Symptom Management Patient Evaluation: Verbalizes understanding: Yes Supplemental Material Given: Written Material Instructed By Brisa Nieto RN In Department Urology . [facility] History of Present illness Narrative* Becky Burgos [...] 2023 TIME: 12:36 PM documented in [facility]11-[facility] NotePROCEDURE: US KIDNEYS BLADDER DATE: 11/22/2022 7:06 [...] Electronically authenticated by: ALENA SHANNON Date: 2022-11-22 16:50[facility]04-25-2023 History of Present illness Narrative* Blanche Naranjo Joyce - 10/21/2022 3:44 PM EDT UNIVERSAL PROTOCOL [...] scope Nanci Carvajal MD documented in [facility] encounterL[facility]04-[facility]23 Nurse Note* Blanche Naranjo Ma - 10/21/2022 3:02 PM EDT Actual procedure/procedure scheduled: Yes Performing provider/scheduled provider: Yes Patient was roomed in: Q9- 08 Slip Filler offered:Patient declines Patient arrived in the room [...] Education Session: None Instruction Provided To: Patient Typewriter Aligner Present: not applicable Discipline: Nursing Learning Topic: SURVIVAL SKILLS: Symptom Management Patient Evaluation: Verbalizes understanding: Yes Supplemental Material Given: Written Material Instructed By Blanche Naranjo Ma In Department Urology . documented in this encounterL[facility]01-18-2023 Miscellaneous Notes* Telephone Encounter - Nanci Carvajal MD - 07/16/2022 4:23 PM EST July 16, 2022 4:23 PM Called patient to discuss urine cytology results. Discussed results as in epic. Recommended repeat cystoscopy 3 months. All questions answered. Nanci Carvajal MD documented in [facility] encounterL[facility]01-10-2023 History of Present illness Narrative* Natalee Garcia [...] months Nanci Carvajal MD documented in [facility] encounterL[facility]01-10-2023 Nurse Note* Natalee Garcia RN - 07/08/2022 [...] Education Session: None Instruction Provided To: Patient Typewriter Aligner Present: not applicable Discipline: Nursing Learning Topic: SURVIVAL SKILLS: Complication Prevention Patient Evaluation: Verbalizes understanding: Yes Supplemental Material Given: Written Material Instructed By Rommel Garcia RN In Department Urology . documented in this encounterL[facility]11-23-2022 Evaluation note* Encounter Date Diagnosis Assessment Notes Treatment Notes Treatment Clinical Notes Apr, Esophageal diverticulum (ICD-10 - Q39.6) Apr, Dysphagia (ICD-10 - R13.10) Patient to call if symptoms worsen or return Continue Omeprazole Follow up 1 year [employer] Other 11-17-2022 Miscellaneous Notes* Allied Health - Liss Hutton RT(R) - 05/15/2022 8:00 AM EST Radiology [...] 2022 TIME: 8:28 AM [place] encounterC[place] [id number] Miscellaneous Notes* Telephone Encounter - Nanci Carvajal [...] this. All questions answered. documented in [facility] encounterL[facility]10-24-2022 Miscellaneous Notes* Telephone Encounter - Hallie Matson [...] verbalized understanding. All questions answered. Hallie Matson RN Triage Nurse Department of Urology [facility] documented in this encounterL[facility]10-04-2022 History of Present illness Narrative* Nanci Carvajal [...] applicable. Ameena Stewart RN documented in this encounterL[facility]10-04-2022 Nurse Note* Ameena Stewart RN - 04/01/2022 [...] None Instruction Provided To: Patient and Spouse Typewriter Aligner Present: not applicable Discipline: Nursing Learning Topic: SURVIVAL SKILLS: Symptom Management Patient Evaluation: Verbalizes understanding: Yes Supplemental Material Given: Written Material Instructed By Ameena Stewart RN In Department Urology . documented in this encounterL[facility]06-08-2022 Evaluation note* Encounter Date Diagnosis Assessment Notes Treatment Notes Treatment Clinical Notes Nov, Esophageal diverticulum (ICD-10 - Q39.6) REASSURANCE IF SYMPTOMS RETURN PT TO CALL FOR ESOPHAGEAL MANOMETRY AND REPEAT EGD WITH DILATION DECREASE AMITRYPTYLINE TO ONCE DAILY F/U HERE 3 MONTHS [employer] Other 05-10-2022 Miscellaneous Notes* Telephone Encounter - Bing Schmitt RN - 11/05/2021 2:17 PM EDT Left a message on the cell voicemail concerning 11/07 appt to Urol nurse. documented in this encounterL[facility]04-28-2022 History of Present illness Narrative* Eze Carreon [...] well. Eze Carreon RN documented in this encounterL[facility]03-25-2022 Miscellaneous Notes* Telephone Encounter - Nanci Carvajal [...] answered. Nanci Carvajal MD documented in this encounterLima [facility] Hospital06-01-2021 History of Present illness Narrative* Viau, Edy Velasco MD - 11/27/2020 11:28 AM EDT [facility] [address] ([address]) [facility] [address] [facility] [id number] Timur Francisco is a 69 [...] improve. Edy Villalpando MD documented in this [id number] History of Present illness Narrative* Darlene Calderon LPN - 11/09/2020 10:52 AM EDT [facility] ([facility]) denied the epidural injection for 11-27-20 due [...] speak with Dr. Villalpando. [facility]* Diagnosis Spinal stenosis of lumbar region without neurogenic claudication- Primary Lumbar degenerative disc disease documented in this encounter [facility] note* Diagnosis Right hip pain Pain in joint, pelvic region and thigh documented in this encounter [employer]: evaluation note* Diagnosis Malignant neoplasm of urinary bladder, unspecified site (HCC)- Primary documented in this encounter [facility] note* Diagnosis Viral upper respiratory tract infection with cough Acute upper respiratory infections of unspecified site documented in this encounter [employer] Phone: evaluation note* Diagnosis History of bladder cancer- Primary Personal history of malignant neoplasm of bladder Malignant neoplasm of urinary bladder, unspecified site (HCC) documented in this encounter [facility] note* Diagnosis Suspected UTI- Primary documented in this encounter [facility] note* Diagnosis Malignant neoplasm of urinary bladder, unspecified site (HCC)- Primary Abnormal urine cytology Other nonspecific finding on examination of urine documented in this encounter [facility] noteNo assessment information availableWilson [facility] Work Phone: Evaluation note* Diagnosis Encounter for follow-up surveillance of bladder cancer- Primary Unspecified follow-up examination documented in this encounter [facility] note* Diagnosis Encounter for follow-up surveillance of bladder cancer- Primary Unspecified follow-up examination History of bladder cancer Personal history of malignant neoplasm of bladder documented in this encounter [facility] noteNo InformationNort [facility] Other Evaluation note* Diagnosis Malignant neoplasm of urinary bladder, unspecified site (HCC) History of bladder cancer Personal history of malignant neoplasm of bladder documented in this encounter [facility] note* Diagnosis Onset Date Resolution Status Dysphagia acute [facility] Work Phone: evaluation note* Diagnosis Encounter for follow-up surveillance of bladder cancer- Primary Unspecified follow-up examination History of bladder cancer Personal history of malignant neoplasm of bladder documented in this encounter [facility] note* Diagnosis Malignant neoplasm of urinary bladder, unspecified site (HCC) documented in this encounter [facility] note* Diagnosis Pre-operative examination- Primary Unspecified pre-operative examination Traction detachment of right retina Traction detachment of retina Rheumatoid arthritis, involving unspecified site, unspecified whether rheumatoid factor present (HCC) Essential (primary) hypertension Unspecified essential hypertension Gastroesophageal reflux disease, unspecified whether esophagitis present JOHNATHON (obstructive sleep apnea) Obstructive sleep apnea (adult) (pediatric) documented in this encounter [facility] note* Diagnosis Encounter for follow-up surveillance of bladder cancer- Primary Unspecified follow-up examination History of bladder cancer Personal history of malignant neoplasm of bladder documented in this encounter [facility] note* Diagnosis Encounter for follow-up surveillance of bladder cancer- Primary Unspecified follow-up examination History of bladder cancer Personal history of malignant neoplasm of bladder documented in this encounter [facility] general Narrative - Reported* Type Description Date Surgical History CHOLECYSTECTOMY Surgical History APPENDECTOMOY Surgical History HERNIA REPAIR [place] [facility] Other Hospital Discharge instructions Additional Instructions DISCHARGE [...] if you have any problems. -Office number [phone] [facility] Hospital Work Phone: Reason for visit NarrativePT HERE AT REQUEST OF DR ROSALINA DE ANDA EVALUATION AND TREATMENT OF ESOPHAGEAL DIVERTICULUM / DYSPHAGIANocoxhealth [facility] Other Summary Purpose Family History No Family History Records Found Relationship Condition Age at Onset Recorded Date/T marjan Not Specified Cerebrovascular accident (CVA) Unknown brother Cerebrovascular accident (CVA) Unknown Relationship Condition Age at Onset Recorded Date/T marjan mother Cerebrovascular accident (CVA) Unknown brother Cerebrovascular accident (CVA) Unknown Advance Directives No Advanced Directives Records FoundDocuments on File Type Date Recorded Patient Billet Heater Expl anation Advance Directives and Livin g Will 02/07/2020 3:27 PM Documents on File Type Date Recorded Patient Billet Heater Expl anation ACP-Advance Directive ACP-Power of Tax Adjuster Latest Code Status on File Code Status Date Activated Date Inactivated Comments Full Code 04/07/2013 1:10 PM 04/07/2013 6:05 PM Documents on File Type Date Recorded Patient Billet Heater Expl anation Advance Directives and Livin g Will 05/08/2020 3:27 PM Documents on File Type Date Recorded Patient Billet Heater Expl anation Advance Directives and Living Will 05/14/2020 12:00 AM NOT IN COMPUTER WITH [facility]. Documents on File Type Date Recorded Patient Billet Heater Expl anation Advance Directive(s) 07/06/2020 10:16 AM Advance Directive(s) 11/17/2019 12:16 PM Advance Directive(s) 01/19/2019 1:53 PM Advance Directive(s) 01/12/2019 12:10 PM Advance Directive(s) 11/02/2018 11:19 AM Advance Directive(s) 05/14/2018 12:35 PM Advance Directive(s) 05/14/2018 2:34 PM Documents on File Type Date Recorded Patient Billet Heater Expl anation Advance Directive(s) 05/14/2018 2:34 PM Documents on File Type Date Recorded Patient Billet Heater Expl anation Advance Directive(s) 05/14/2018 2:34 PM Advance Directive Response Recorded Date/ Time Advance Directives No July 02, 2022 2:58pm Advance Directive Response Recorded Date/ Time Advance Directives No July 02, 2022 1:58pm History of Present Illness * Edy Villalpando MD - 02/07/2020 3:55 PM EDT [facility] [address] (11) [facility] [address] [facility] [phone] Timur Francisco is a 69 y.o. male [...] standing walking are aggravating he has had personal care aid without improvement has been on ooox-hhc-[id number] medications without improvement he has had an [...] Cunningham, PT - 02/15/2020 3:00 PM EDT [facility] Evaluation Date: 02/15/2020 Patient: [...] proper posture and lifting following back education buttermaker goals Time Frame for assisted goals : 12 buttermaker goal 1: Decrease pain back and legs 2/10 at worst x3 days assisted goal 2: Improve functional mobility with Oswestry score < 8/45 Patient's Goal: Be rid of back pain Timed Code Treatment Minutes: 15 Minutes Total Treatment Time: 45 Time In: 15:05 Time Out: 15:50 Cb Cunningham, PT Date: 02/15/2020 documented in this encounter* Linda Gardner - 02/21/2020 9:45 AM EDT [facility] Daily Note Date: 02/21/2020 [...] proper posture and lifting following back education [employer]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 Goals - Time Frame for buttermaker goals : 12 buttermaker goal 1: Decrease pain back and legs 2/10 at worst x3 days assisted goal 2: Improve functional mobility with Oswestry score < 8/45 Post Treatment Pain: 6/10 Time In: 0945 Time Out : 1020 Timed Code Treatment Minutes: 35 Minutes Total Treatment Time: 35 Minutes Linda Gardner ARCHITECT IN TRAINING Date: 02/21/2020 documented in this encounter* Linda Gardner - 02/23/2020 9:45 AM EDT [facility] Daily Note Date: 02/23/2020 [...] proper posture and lifting following back education Halfway Goals - Time Frame for buttermaker goals : 12 assisted goal 1: Decrease pain back and legs 2/10 at worst x3 days buttermaker goal 2: Improve functional mobility with Oswestry score < 8/45 Post Treatment Pain: 4/10 Time In: 0940 Time Out : 1015 Timed Code Treatment Minutes: 35 Minutes Total Treatment Time: 35 Minutes Linda Gardner ARCHITECT IN TRAINING Date: 02/23/2020 documented in this encounter* Linda Gardner - 02/28/2020 9:45 AM EDT [facility] Daily Note Date: 02/28/2020 [...] proper posture and lifting following back education Halfway Goals - Time Frame for assisted goals : 12 buttermaker goal 1: Decrease pain back and legs 2/10 at worst x3 days assisted goal 2: Improve functional mobility with Oswestry score < 8/45 Post Treatment Pain: 10/10 Time In: 0945 Time Out : 1025 Timed Code Treatment Minutes: 40 Minutes Total Treatment Time: 40 Minutes Linda Gardner ARCHITECT IN TRAINING Date: 02/28/2020 documented in this encounter* Linda Gardner - 03/02/2020 10:30 AM EDT [facility] Daily Note Date: 03/02/2020 [...] proper posture and lifting following back education 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.] proper posture and lifting following back education-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 He reports he was [...] proper posture and lifting following back education-met Halfway Goals - Time Frame for assisted goals : 12 buttermaker goal 1: Decrease pain back and legs 2/10 at worst x3 days assisted goal 2: Improve functional mobility with Oswestry score < 8/45 Post Treatment Pain: 10/10 Time In: 9:45 Time Out : 10:15 Timed Code Treatment Minutes: 30 Minutes Total Treatment Time: 30 Minutes Cb Cunningham PT Date: 03/14/2020 documented in this encounter* [facility]: [facility] Patient Name: Timur Francisco : 1950 Pt Cancelled Appt due to no reason. Linda Breaux Date: 03/16/2020 documented in this encounter* Edy Villalpando MD - 05/15/2020 1:39 PM EST [facility] [address] (11) [facility] [address] [facility] [phone] Timur Francisco is a 69 y.o. male [...] and reduces to 2 mm with extension. Pvex-jg-ejhurkha degenerative spondylosis and facet osteoarthropathy. DISC SPACES: [...] AM EST [facility] [address] (11) [facility] [address] [facility] [address] [facility] [address] Timur Francisco is a 69 y.o. male [...] AM EST [facility] [address] (11) [facility] [address] [facility] [id number] Timur Francisco is a 69 y.o. male [...] [place] is [place] [address] REF#[id number]. documented in this encounter Assessments Diagnosis Back [...] Spine Without Contrast Edy Villalpando MD [address] [place] [address] Specialty Diagnoses / Procedures Referred By Contac t Referred To Contact CT IMAGING Diagnoses Malignant neoplasm of urinary bladder, unspecified site (HCC) History of bladder cancer Procedures CT UROGRAM WO/W IVCON CT ABD & PELVIS W/O CONTRST 1+ BODY Nanci Dyer MD [address] [place] [address] Ct Imaging Referral ID Status Reason Start Date Expiration Date Visits Requested Visits Authorized [id number] Authorized Auto-Generat ed Referral 07/04/2022 05/03/2023 1 1 Specialty Diagnoses / Procedures Referred By Contac t Referred To Contact CT IMAGING Diagnoses Malignant neoplasm of urinary bladder, unspecified site (HCC) Procedures CT UROGRAM WO/W IVCON CT ABD & PELVIS W/O CONTRST 1+ BODY Nanci Dyer MD [address] [place] [address] Ct Imaging Referral ID Status Reason Start Date Expiration Date Visits Requested Visits Authorized [id number] Pending Review Auto-Generat ed Referral 05/02/2022 06/01/2023 1 1 Specialty Diagnoses / Procedures Referred By Contac t Referred To Contact CT IMAGING Diagnoses Malignant neoplasm of urinary bladder, unspecified site (HCC) History of bladder cancer Procedures CT UROGRAM WO/W IVCON CT ABD & PELVIS W/O CONTRST 1+ BODY Nanci Dyer MD [address] [facility] [place] [address] Ct Imaging [id number] Referral ID Status Reason Start Date Expiration Date V isits Requested Visits Authorized [id number] Closed Auto-Generate d Referral 07/04/2022 05/03/2023 1 1 Specialty Diagnoses / Procedures Referred By Contac t Referred To Contact CT IMAGING Diagnoses Malignant neoplasm of urinary bladder, unspecified site (HCC) Procedures CT UROGRAM WO/W IVCON CT ABD & PELVIS W/O CONTRST 1+ BODY Nanci Dyer MD [address] [place] [address] [place] [address] Referral ID Status Reason Start Date Expiration Date V isits Requested Visits Authorized [id number] Closed Auto-Generate d Referral 05/28/2023 02/19/2024 1 1 Specialty Diagnoses / Procedures Referred By Contac t Referred To Contact CT IMAGING Diagnoses History of bladder cancer Procedures CT UROGRAM WO/W IVCON CT ABD & PELVIS W/WO CONTRST 1+ BODY Nanci Dyer MD [address] [facility] [place] [address] [place] [address] Referral ID Status Reason Start Date Expiration Date Visits Requested Visits Authorized [id number] New Request Auto-Generat ed Referral 12/06/2024 07/07/2025 1 1 Medications Administered Section Inactive Administered [...] Visit Dysphagia Chief Complaint Dysphagia M05.79 [id number] Chief Complaint m05.79 [id number] M05.79 Z79.899 Chief Complaint M05.79 [id number] M05.79 Z79.899 Chief Complaint M05.79 [id number] Additional Source Comments (unrecognized sect ion and content) No Status Records FoundNo Status Records FoundNo Status Records FoundNo Status Records FoundNo Status Records FoundNo Status Records FoundNo Status Records FoundNo Status Records FoundNo Status Records Found INFORMATION SOURCE (unrecogn ized section and content) DATE CREATED AUTHOR 12/08/2019 [facility] DATE CREATED AUTHOR AUTHOR'S ORGANIZ ATION 05/15/2020 [facility] DATE CREATED AUTHOR AUTHOR'S ORGANIZ ATION 11/14/2021 [facility] DATE CREATED AUTHOR AUTHOR'S ORGANIZ ATION 05/18/2022 [facility] DATE CREATED AUTHOR AUTHOR'S ORGANIZ ATION 12/05/2022 [facility] DATE CREATED AUTHOR AUTHOR'S ORGANIZ ATION 10/21/2023 [facility] DATE CREATED AUTHOR AUTHOR'S ORGANIZ ATION 01/26/2024 [facility] EPIC DATE CREATED AUTHOR AUTHOR'S ORGANIZ ATION 05/14/2024 [facility] DATE CREATED AUTHOR AUTHOR'S ORGANIZ ATION 06/13/2024 [facility] Reason for Visit (unrecogniz ed section and content) Reason Comments Pain Status Reason Specialty Diagnoses / Procedures Referred By Contact Referred To Contact Closed Orthopedic Surgery Diagnoses Back pain, unspecified back location, unspecified back pain laterality, unspecified chronicity Isauro Poe MD [address] [place] [address] Edy Villalpando MD [address] [id number] Status Reason Specialty Diagnoses / Procedures Referre d By Contact Referred To Contact Closed Radiology Diagnoses Spondylolisthesis of lumbar region Back pain, unspecified back location, unspecified back pain laterality, unspecified chronicity Procedures MR Lumbar Spine Without Contrast Edy Villalpando MD [address] [place] [address] Reason Comments Back Pain Reason Comments Imaging Results MRI Pain Reason Comments Follow-up talk 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 Malignant neoplasm of urinary bladder, u nspecified site (HCC Reason Comments Appointment Cancelled Reason Comments Returning Patient's Call 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 Reason Comments Results Specialty Diagnoses / Procedures Referred By Contac t Referred To Contact CT IMAGING Diagnoses Malignant neoplasm of urinary bladder, unspecified site (HCC) History of bladder cancer Procedures CT UROGRAM WO/W IVCON CT ABD & PELVIS W/O CONTRST 1+ BODY Nanci Dyer MD [address] [place] [address] Ct Imaging [place] [address] Referral ID Status Reason Start Date Expiration Date V isits Requested Visits Authorized [id number] Closed Auto-Generate d Referral 07/04/2022 05/03/2023 [address] Specialty Diagnoses / Procedures Referred By Contac t Referred To Contact CT IMAGING Diagnoses Malignant neoplasm of urinary bladder, unspecified site (HCC) Procedures CT UROGRAM WO/W IVCON CT ABD & PELVIS W/O CONTRST 1+ BODY Nanci Dyer MD [id number] Imaging [id number] Referral ID Status Reason Start Date Expiration Date V isits Requested Visits Authorized [id number] Closed Auto-Generate d Referral 05/28/2023 02/19/2024 1 1 Reason Comments Perioperative Medical Evaluation H33.41 Reason Comments Cystoscopy-1 Reason Comments Cystoscopy-1 Care Teams (unrecognized sec tion and content) Informatics Nurse Relationship Specialty Start Date End Date Isauro Poe MD [address] [place] [address] PCP - General 06/16/12 Informatics Nurse Relationship Specialty Start Date End Date Isauro Poe [address] [place] [address] (Fax) PCP - General Family Practice 11/04/18 Wai Matson Jr. [address] [place] [address] Referring Urology 04/23/18 Informatics Nurse Relationship Specialty Start Date End Date Isauro Poe [address] [place] [address] (Fax) PCP - General Family Practice 11/04/18 Wai Matson Jr. [address] [place] [address] Referring Urology 04/23/18 Informatics Nurse Relationship Specialty Start Date End Date Isauro Poe [address] [place] [address] (Fax) PCP - General Family Practice 11/04/18 Wai Matson Jr. [address] [place] [address] Referring Urology 04/23/18 Informatics Nurse Relationship Specialty Start Date End Date Isauro Poe MD [address] [facility] [place] [address] (Fax) PCP - General Family Practice 11/04/18 Wai Matson Jr. [address] [place] [address] Referring Urology 04/23/18 Informatics Nurse Relationship Specialty Start Date End Date Isauro Poe MD [address] [place] [address] PCP - General 06/16/12 Informatics Nurse Relationship Specialty Start Date End Date Isauro Poe MD [address] [place] [address] (Fax) PCP - General Family Medicine 11/04/18 Wai Matson Jr. [address] [place] [address] Referring Urology 04/23/18 Informatics Nurse Relationship Specialty Start Date End Date Isauro Poe MD [address] [place] [address] (Fax) PCP - General Family Medicine 11/04/18 Wai Matson Jr. [address] [place] [address] Referring Urology 04/23/18 Informatics Nurse Relationship Specialty Start Date End Date Isauro Poe MD [address] [place] [address] (Fax) PCP - General Family Medicine 11/04/18 Wai Matson Jr. [address] [place] [address] Referring Urology 04/23/18 Team Status: Inactive Member Role Status Dates Zhou Fischer MD Attending Provider Active Informatics Nurse Relationship Specialty Start Date End Date Isauro Poe MD [address] [place] [address] (Fax) PCP - General Family Medicine 11/04/18 Wai Matson Jr. [address] [place] [phone] Referring Urology 04/23/18 Informatics Nurse Relationship Specialty Start Date End Date Isauro Poe MD [address] [place] [address] (Fax) PCP - General Family Medicine 11/04/18 Wai Matson Jr. [address] [place] [address] Referring Urology 04/23/18 Informatics Nurse Relationship Specialty Start Date End Date Isauro Poe MD [address] [place] [address] (Fax) PCP - General Family Medicine 11/04/18 Wai Matson Jr. [address] [place] [address] Referring Urology 04/23/18 Team Status: Active Member Role Status Dates PHYSICIAN NO FAMILY Primary Care Provider Active Team Status: Inactive Member Role Status Dates PHYSICIAN NO FAMILY Primary Care Provider Active Zhou Fischer MD Attending Provider Active Informatics Nurse Relationship Specialty Start Date End Date Isauro Poe MD [address] [place] [place] [address] (Fax) PCP - General Family Medicine 11/04/18 Wai Matson Jr. [address] [place] [address] Referring Urology 04/23/18 Team Status: Active Member Role Status Dates Danette Muniz NP-C Primary Care Provider Active Team Status: Inactive Member Role Status Dates Zhou Fischer MD Attending Provider Active Danette Muniz NP-Nury Primary Care Provider Active Team Status: Inactive Member Role Status Dates Danette Muniz NP-Nury Primary Care Provider Active Mundo Dang MD Attending Provider Active Team Status: Inactive Member Role Status Dates Danette Muniz NP-C Primary Care Provider Active Zhou Fischer MD Attending Provider Active Informatics Nurse Relationship Specialty Start Date End Date Isauro Poe MD [address] [place] [address] PCP - General Family Medicine 11/04/18 Wai Matson Jr. [address] [place] [address] Referring Urology 04/23/18 Informatics Nurse Relationship Specialty Start Date End Date Isauro Poe MD [address] [place] [address] (Fax) PCP - General Family Medicine 11/04/18 Wai Matson Jr. [address] [place] [address] Referring Urology 04/23/18 Team Status: Inactive Member Role Status Dates Danette Muniz NP-C Primary Care Provider Active Start: May 06, 2023 End: May 06, 2023 Mundo Dang MD Attending Provider Active Start: May 06, 2023 End: May 06, 2023 Team Status: Inactive Member Role Status Dates Danette Beatris Cristy , BIRD SITTER-C Primary Care Provider Active Start: May 25, 2023 End: May 25, 2023 Zhou Fischer MD Attending Provider Active St art: May 25, 2023 End: May 25, 2023 Team Status: Inactive Member Role Status Dates ALVAREZ EstebanC Primary Care Provider Active Start: July 21, 2023 End: July 21, 2023 Zhou Fischer MD Attending Provider Active St art: July 21, 2023 End: July 21, 2023 Informatics Nurse Relationship Specialty Start Date End Date Isauro Poe MD PCP - General Family Medicine 02/07/20 Team Status: Inactive Member Role Status Dates NALINI Esteban Primary Care Provider Active Start: October 29, 2023 End: October 29, 2023 Zhou Fischer MD Attending Provider Active St art: October 29, 2023 End: October 29, 2023 Informatics Nurse Relationship Specialty Start Date End Date Isauro Poe MD [address] [place] [address] PCP - General Family Medicine 11/04/18 Wai Matson Jr. [address] [place] [address] Referring Urology 04/23/18 Team Status: Inactive Member Role Status Dates NALINI Esteban Primary Care Provider Active Start: December 28, 2023 End: December 28, 2023 Zhou Fischer MD Attending Provider Active St art: December 28, 2023 End: December 28, 2023 Team Status: Inactive Member Role Status Dates NALINI Esteban Primary Care Provider Active Start: March 16, 2024 End: March 16, 2024 Zhou Fischer MD Attending Provider Active St art: March 16, 2024 End: March 16, 2024 Team Status: Inactive Member Role Status Dates Danette Beatris Cristy , [employer] Primary Care Provider Active Start: May 02, 2024 End: May 02, 2024 Zhou Fischer MD Attending Provider Active St art: May 02, 2024 End: May 02, 2024 Informatics Nurse Relationship Specialty Start Date End Date Isauro Poe MD [address] [place] [address] PCP - General Family Medicine 11/04/18 Wai Matson Jr. [address] [place] [address] Referring Urology 04/23/18 Informatics Nurse Relationship Specialty Start Date End Date Unallocated, [place] Provider, [address] [place] [address] PCP - General 01/28/23 Source Comments (unrecognize d section and content) In the event this informatio n is protected by the Federal Confidentiality of Alcohol and Drug Abuse Patient Records regulations: The Federal rules restrict any use of the information to criminally investigate or prosecute any alcohol or drug abuse patient.[facility] the event this information is protected by the Federal Confidentiality of Alcohol and Drug Abuse Patient Records regulations: The Federal rules restrict any use of the information to criminally investigate or prosecute any alcohol or drug abuse patient.[facility] the event this information is protected by the Federal Confidentiality of Alcohol and Drug Abuse Patient Records regulations: The Federal rules restrict any use of the information to criminally investigate or prosecute any alcohol or drug abuse patient.[facility] the event this information is protected by the Federal Confidentiality of Alcohol and Drug Abuse Patient Records regulations: The Federal rules restrict any use of the information to criminally investigate or prosecute any alcohol or drug abuse patient.[facility] the event this information is protected by the Federal Confidentiality of Alcohol and Drug Abuse Patient Records regulations: The Federal rules restrict any use of the information to criminally investigate or prosecute any alcohol or drug abuse patient.[facility] the event this information is protected by the Federal Confidentiality of Alcohol and Drug Abuse Patient Records regulations: The Federal rules restrict any use of the information to criminally investigate or prosecute any alcohol or drug abuse patient.[facility] the event this information is protected by the Federal Confidentiality of Alcohol and Drug Abuse Patient Records regulations: The Federal rules restrict any use of the information to criminally investigate or prosecute any alcohol or drug abuse patient.[facility] the event this information is protected by the Federal Confidentiality of Alcohol and Drug Abuse Patient Records regulations: The Federal rules restrict any use of the information to criminally investigate or prosecute any alcohol or drug abuse patient.[facility] the event this information is protected by the Federal Confidentiality of Alcohol and Drug Abuse Patient Records regulations: The Federal rules restrict any use of the information to criminally investigate or prosecute any alcohol or drug abuse patient.[facility] the event this information is protected by the Federal Confidentiality of Alcohol and Drug Abuse Patient Records regulations: The Federal rules restrict any use of the information to criminally investigate or prosecute any alcohol or drug abuse patient.[facility] the event this information is protected by the Federal Confidentiality of Alcohol and Drug Abuse Patient Records regulations: The Federal rules restrict any use of the information to criminally investigate or prosecute any alcohol or drug abuse patient.[facility] the event this information is protected by the Federal Confidentiality of Alcohol and Drug Abuse Patient Records regulations: The Federal rules restrict any use of the information to criminally investigate or prosecute any alcohol or drug abuse patient.[facility] the event this information is protected by the Federal Confidentiality of Alcohol and Drug Abuse Patient Records regulations: The Federal rules restrict any use of the information to criminally investigate or prosecute any alcohol or drug abuse patient.[facility] the event this information is protected by the Federal Confidentiality of Alcohol and Drug Abuse Patient Records regulations: The Federal rules restrict any use of the information to criminally investigate or prosecute any alcohol or drug abuse patient.[facility] the event this information is protected by the Federal Confidentiality of Alcohol and Drug Abuse Patient Records regulations: The Federal rules restrict any use of the information to criminally investigate or prosecute any alcohol or drug abuse patient.[facility] Goals (unrecognized section and content) Goals may [...] BE BASED ON THE PRIMARY CLINICAL RECORDS. [facility] [employer] [facility]. provides no warranty or guarantee of the accuracy or completeness of information in this document.
== END 2024-08-19 09:18 | disposition home or self-care (01) ==
LOC: EC 09:17
PROVIDERS: PCP Nurse Practitioner Family; Visit Provider Orthopaedic Surgery Orthopaedic Surgery of the Spine
DX: M54.50 Low back pain, unspecified (principal); M43.26 Fusion of spine, lumbar region
CPT/HCPCS: 72100

== ENCOUNTER 2024-08-26 08:52 | Outpatient (OUT) | payer MEDICARE, OTHER, SELFPAY ==
--- NOTE | 2024-08-26 08:55 | MR_ITS ---
The [address] [address] Patient Name: ARCELIA FRANCISCO MRN: [id number] date: 1950 Sex: M Assigned Patient Location: MRI Current Patient Location: MRI Accession/Order Number: [id number] Exam Date: 08/26/2024 16:11 Report Date: 08/26/2024 16:15 At the request of: VICKY PUGH MD Procedure: MR lumbar spine wo con MR lumbar spine wo con 08/26/2024 10:32 AM SIGNS AND SYMPTOMS: Chronic low back pain, history of of L5-S1 fusion PROTOCOL: Multiplanar multisequence MR images of the lumbar spine without IV contrast COMPARISON: None. FINDINGS: The bones of the lumbar spine are in anatomic alignment. There is preservation of vertebral body heights. There is posterior and intervertebral fusion at L5-S1. There is disc desiccation with mild disc height loss at T12-L1 and L1-L2. There is moderate disc height loss at L2-L3. There is mild disc height loss at L3-L4 and L4-5. There is Modic type II fatty endplate degenerative change at T11-T12, T12-L1, L2-L3, and L4-5. There is accompanying mild Modic type I endplate edema at L1-L2 and L3-4. The marrow signal is within normal limits. The conus terminates at the L1-L2 intervertebral disc level. No epidural or paraspinous fluid collection is appreciated. At T12-L1: There is a broad-based disc bulge with facet hypertrophy. There is mild spinal canal narrowing with mild bilateral neural foraminal narrowing. At L1-L2: Broad-based disc bulge with facet hypertrophy contributing to mild spinal canal narrowing. There is moderate right and mild left neural foraminal stenosis. At L2-L3: There is a broad-based disc bulge with facet hypertrophy. There is mild spinal canal stenosis with mild to moderate bilateral neural foraminal stenosis. At L3-L4: There is a circumferential disc bulge with facet hypertrophy and ligamentum flavum thickening. There is moderate spinal canal narrowing along with moderate bilateral neural foraminal narrowing left greater than right. At L4-L5: There is a circumferential disc bulge with facet hypertrophy. There is mild spinal canal stenosis with moderate left and mild right neural foraminal stenosis. At L5-S1: There is posterior decompression. There is posterior and intervertebral fusion. There is endplate osteophyte formation contributing to moderate bilateral neural foraminal narrowing. No spinal canal narrowing. MR/MR lumbar spine wo con IMPRESSION: At L3-L4: There is a circumferential disc bulge with facet hypertrophy and ligamentum flavum thickening. There is moderate spinal canal narrowing along with moderate bilateral neural foraminal narrowing left greater than right. At L5-S1: There is posterior decompression. There is posterior and intervertebral fusion. There is endplate osteophyte formation contributing to moderate bilateral neural foraminal narrowing. No spinal canal narrowing. Lesser degrees of degenerative changes are noted as above. Impression dictated by: Gus Salinas M.D.08/26/2024 4:15 PM Dictation Location: [place] [address] Electronically authenticated by: [id number] Y Date: 08/26/2024 16:15
== END 2024-08-26 08:53 | disposition home or self-care (01) ==
LOC: MRI 08:52
PROVIDERS: PCP Nurse Practitioner Family; Visit Provider Orthopaedic Surgery Orthopaedic Surgery of the Spine
DX: Z47.89 Encounter for other orthopedic aftercare (principal); M47.9 Spondylosis, unspecified; M51.369 Other intervertebral disc degeneration, lumbar region without mention of lumbar back pain or lower extremity pain; M43.26 Fusion of spine, lumbar region
CPT/HCPCS: 72148

== ENCOUNTER 2024-12-03 08:32 | Outpatient (OUT) | payer MEDICARE, OTHER, SELFPAY ==
--- OUTSIDE RECORDS SUMMARY | 2024-12-03 08:40 | XMS_ITS | CCD ---
Author Organization [facility] Care Team Providers Care News Wire Photo Operator Name Role Phone Isauro Poe Primary Care Provider Wai Matson Jr. Unavailable Isauro Poe Primary Care Provider Isauro Poe MD Primary Care Provider Isauro Poe MD Primary Care Provider [phone] Mundo Dang Unavailable Wai Matson Jr. Unavailable Isauro Poe MD Primary Care Provider NANCI CARVAJAL Referring Unavailable ISAURO POE Primary Care Unavailab NACNI Gruber Referring Unavailable ISAURO POE Primary Care Unavailab MD Zhou Mathis Attending Provider Wai Matson Jr. Unavailable Isauro Poe MD Primary Care Provider DANETTE MUNIZ Admitting Unavailable CRISTY, DANETTE Primary Care Unavailable CRISTY, DANETTE Consulting Unavailable CRISTY, DANETTE Attending Unavailable CRISTY, DANETTE Primary Care Unavailable CRISTY, DANETTE Consulting Unavailable CRISTY, DANETTE Attending Unavailable CRISTY, DANETTE Admitting Unavailable ALENA SHANNON Consulting Unavailable CRISTY, DANETTE Primary Care Unavailable CRISTY, DANETTE Consulting Unavailable CRISTY, DANETTE Attending Unavailable CRISTY, DANETTE Admitting Unavailable CRISTY, DANETTE Primary Care Unavailable KARLA ., MR ALEJANDRO Consulting Unavailable NATALEE NGUYEN Admitting Unavailable NATALEE NGUYEN Attending Unavailable NO FAMILY, PHYSICIAN Primary Care Provider Unava ilable MD Zhou Fischer Attending Provider [phone] NO FAMILY, PHYSICIAN Primary Care Provider Unava chanelable MD Zhou Fischer Attending Provider NO FAMILY, PHYSICIAN Primary Care Provider Unava MD Zhou Benson Attending Provider NALINI Muniz Danette Beatris Primary Care Provider [phone] MD Mundo Dang Attending Provider MD Zhou Fischer Attending Provider NALINI Muniz Danette Beatris Primary Care Provider [phone] MD Zhou Fischer Attending Provider [phone] Isauro Poe MD Primary Care Provider [phone] ISAURO POE Primary Care Unavailable SABINA RED Attending Unavailable NALINI Muniz Danette Beatris Primary Care Provider MD Zhou Fischer Attending Provider Isauro Poe MD Primary Care Provider NALINI Muniz Danette Beatris Primary Care Provider [phone] MD Zhou Fischer Attending Provider NALINI Muniz Danette Beatris Primary Care Provider [phone] MD Zhou Fischer Attending Provider Unallocated , Noms Provider Primary Care [facility] ISAURO POE Primary Care Unavailab NANCI Gruber Attending Unavailable ISAURO POE Primary Care Unavailab NANCI Gruber Attending Unavailable BLANCHE GUEVARA Referring Unava BLANCHE King Attending Unava ilable ISAURO POE Primary Care Unavailable Isauro Poe MD Primary Care Provider Cristy GAYLE, Danette Beatris Primary Care Provider [phone] Zhou Fischer MD Attending Provider CRISTY, DANETTE S Referring Unavailable HEMEHARRY, ISAURO J Primary Care Unavailable CRISTY, DANETTE S Referring Unavailable HEMEHARRY, ISAURO J Primary Care Unavailable CRISTY, DANETTE S Referring Unavailable HEMEHARRY, ISAURO J Primary Care Unavailable HEMEYER, ISAURO J Primary Care Unavailable CRISTY, DANETTE S Referring Unavailable HEMEYER, ISAURO J Primary Care Unavailable CRISTY, DANETTE S Referring Unavailable Haltra, Zhou Admitting Unavailable Cristy, Danette Beatris Primary Care Unavailable Haladamaral, Zhou Attending Unavailable Haladay, Zhou Admitting Unavailable Cristy, Danette Beatris Primary Care Unavailable Haladay, Zhou Attending Unavailable Cristy, Danette Beatris Primary Care Unavailable Haladay, Zhou Attending Unavailable Haladay, Zhou Admitting Unavailable Cristy, Danette Garciae Primary Care Unavailable Haladay, Zhou Attending Unavailable Haladay, Zhou Admitting Unavailable Cristy, Danette Garciae Primary Care Unavailable Haladay, Zhou Admitting Unavailable Haltra, Zhou Attending Unavailable Amado, Zhou Admitting Unavailable Danette Munize Primary Care Unavailable Amado, Zhou Attending Unavailable CRUZ PALMA Attending Unavailable POCOS, ZEINAB Limon Attending Unavailable POCOS, ZEINAB Limon Attending Unavailable POCOSZEINAB Referring Unavailable POCOS, ZEINAB Limon Attending Unavailable Allergies Allergy Classification Reported Allergen(s) Allergy Type Date of Onset Reaction(s) Facility Opioid Agonists (2 sources) Meperidine Drug Allergy 05-29-2011 Anaphylaxis [facility] (20 sources) Meperidine; Translations: [MEPERIDINE (PF)] Drug Allergy 05-29-2011 Anaphylaxis [facility] (17 sources) Meperidine; Translations: [Demerol] Drug Allergy 02-27-2001 [place], [place] (8 sources) Meperidine Drug Allergy 01-30-2023 Other [facility] Work Phone: (1 source) Meperidine Drug Allergy 07-21-2023 [facility] Repository Medications Current Medications Medication Drug Class(es) Dates Sig (Normalized) Sig (Original) acetaminophen 500 mg oral tablet (20 sources) take 1 tablet by mouth every six hours as needed acetaminophen (TYLENOL) 500 MG tablet Take 500 mg by mouth every 6 hours as needed. Active Amitriptyline (1 source) Tricyclic Antidepressant Amitriptyline HCl Active amLODIPine 10 mg oral tablet (20 sources) Dihydropyridine Calcium Channel Ramonita End: 10-20-2023 take 1 tablet by mouth once daily amLODIPine (NORVASC) 10 MG tablet Take 1 tablet by mouth daily Active amLODIPine Besyl ate Active Comment on above: Take 10 mg by mouth once daily. amLODIPine 10 mg / benazepril hydrochloride 20 mg oral capsule (14 sources) Dihydropyridine Calcium Channel Ramonita, Angiotensin Converting Enzyme Inhibitor Start: 11-11-2023 amLODIPine-benazepr il (Lotrel) 10-20 MG capsule 11/11/2023 Active Start: 05-06-2023 take 1 capsule by [facility] once daily Amlodipine-Benazepril 10-20 mg capsule Active 1 CAP PO Daily May 06, 2023 1:00am clotrimazole 10 mg/ml topical solution (15 sources) Azole Antifungal Start: 12-23-2018 clotrimazole (LOTRIMIN) 1 % external solution 12/23/2018 Active diclofen rcs-gaazje-i-jane-ment (NUDROXIPAK DSDR-75) 75 mg-0.025 %- 25 %-6 % kit (7 sources) diclofen iol-myienh-e-jane-ment (NUDROXIPAK DSDR-75) 75 mg-0.025 %- 25 %-6 % kit twice daily. Take diclofenac 1 tablet (75 mg) by mouth 2 daily. Apply capsaicin-methyl salicylate-menthol liquid topically to the affected area as directed (no more than 4 times per day). Active diclofen sod-cap rqg-w-rgg-ment (NUDROXIPAK DSDR-75) 75 mg-0.025 %- 25 %-6 [...] day). diclofenac sodium 0.01 mg/mg topical gel (20 sources) Nonsteroidal Anti-inflammatory Drug Start: 09-08-2023 diclofenac sodium (Voltaren) 1 % gel Indications: Foot pain, left Apply 2 g topically in the morning and 2 g in the evening and 2 g before bedtime. 100 g 2 09/08/2023 Active Start: 05-06-2023 take 1 tablet by sylvester once daily Diclofenac Sodium 75 mg tablet,delayed release (DR/EC) Active 75 MG PO Daily May 06, 2023 1:00am DICLOFENAC PO Ta ke by mouth Active End: 10-20-2023 diclofenac sodium 1% (VOLTAR EN) 1 % Gel APPLY 2 G TOPICALLY IN THE MORNING AND 2 G IN THE EVENING AND 2 G BEFORE BEDTIME. 0 10/20/2023 Discontinued (Therapy completed) take 2 tablets by mo [facility] every twenty-four hours Diclofenac Sodium 75 MG 2 tablets Oral once a day for 30 Days Active finasteride 5 mg oral tablet (20 sources) 5-alpha Reductase Inhibitor Start: 05-06-2023 take 1 tablet by mouth once daily Finasteride 5 mg Tablet Active 5 MG PO Daily May 06, 2023 1:00am Finasteride Acti ve Comment on above: Take 5 mg by mouth o nce daily. fluorouracil 50 mg/ml topical cream (2 sources) Nucleoside Metabolic Inhibitor Start: 11-08-2024 fluorouracil (Efudex) 5 % cream Indications: Actinic keratosis Apply to directed areas on the scalp and forehead twice a day x 14 days. Dispense 30 day supply but only use for 14 days. 40 g 11/08/2024 Active Start: 11-08-2024 fluorouracil ( Efudex) 5 % cream Indications: Actinic keratosis Apply to directed areas on the scalp and forehead twice a day x 14 days. Dispense 30 day supply but only use for 14 days. 40 g 11/08/2024 Active folic acid 1 mg oral tablet (15 sources) Start: 05-06-2023 take 1 tablet by [...] glucosamine sulfate 500 mg o ral capsule (8 sources) Glucosamine 500 MG capsule 1 (one) time each day at the same time. Active Glucosamine Acti ve Yxmdqlctavd-Lrwttngyt-Gpt C-Mn (7 sources) Start: 05-06-2023 take 1 capsule by mouth once daily Ebymrxjzihx-Hbhblvzip-Lvq C-Mn Active 1 CAP PO Daily May 06, 2023 1:00am Start: 05-06-2023 take 1 capsule by [facility] once daily Cartyynslbh-Qfijztnfk-Tcd C-Mn Active 1 CAP PO Daily May 06, 2023 12:00am Mkrimchqchw-Xwtwbxrcq-Azq C- Mn (GLUCOSAMINE 1500 COMPLEX PO) (16 sources) Glucosamine-Xavier droit-Vit C-Mn (GLUCOSAMINE 1500 COMPLEX PO) Take 1,500 mg by mouth 2 times daily. Active Glucosamine-Xavier droit-Vit C-Mn (GLUCOSAMINE 1500 COMPLEX PO) Take 1,500 mg by mouth 2 times daily. 0 Active Tkoaoxwuwof-Wfmpcozeh-Idi C-Mn 500-400 mg Capsule (2 sources) Start: 05-06-2023 take 1 capsule by mouth once daily Cakfnezbymb-Kymvwafxx-Vju C-Mn 500-400 mg Capsule Active 1 CAP PO Daily May 06, 2023 1:00am hydrocortisone 10 mg/ml / neomycin 3.5 mg/ml / polymyxin b [id number] unt/ml otic solution (15 sources) Aminoglycoside Antibacterial, Polymyxin-clas s Antibacterial, Corticosteroid Start: 12-15-2018 xylasmzc-wjpncfyyu-cnpsfjp rtisone (CORTISPORIN) otic solution 12/15/2018 Active hydroxychloroquine sulfate 200 mg oral tablet (20 sources) Antimalarial, Antirheumatic Agent Start: 05-06-2023 take 1 tablet by mouth once daily Hydroxychloroquine 200 mg tablet Active 200 MG PO Daily May 06, 2023 1:00am take 1 tablet by sylvester th twice [...] 02/07/2021 Active methotrexate 2.5 mg oral tablet (19 sources) Folate Analog Metabolic Inhibitor Start: 05-06-20 methotrexate 2.5 MG tablet TAKE 5 TABLETS [...] five times daily. Multiple Vitamin (multivitamin) tablet (4 sources) take 1 tablet by mouth once daily Multiple Vitamin (multivitamin) tablet Take 1 tablet by mouth Daily Active xvgewmdb-rhw-dzmwqcb sulfate (One Daily Multi-Vit w-Mineral) 4.5 mg iron Tab (9 sources) jxliefdg-gbk-lmd hamlet sulfate (One Daily Multi-Vit w-Mineral) 4.5 [...] May 06, 2023 12:00am Multivitamin Act macho Multivitamin Tablet (2 sources) Start: 05-06-2023 take 1 tablet by mouth once daily Multivitamin Tablet Active 1 TAB PO Daily May 06, 2023 1:00am naproxen sodium 220 mg oral capsule (20 sources) Nonsteroidal Anti-inflammatory Drug End: 10-20-2023 take 2 tablets by mouth twice daily Naproxen Sodium (ALEVE) 220 MG CAPS Take 2 tablets by mouth 2 times daily. Active omeprazole 20 mg delayed release oral capsule (20 sources) Proton Pump Inhibitor Start: 05-06-2023 take 1 capsule by mouth once daily Omeprazole 20 mg capsule,delayed release(DR/EC) Active 20 MG PO Daily May 06, 2023 1:00am take 1 capsule by mouth once arnaldo ly omeprazole (PRILOSEC) 40 MG capsule Take 1 capsule by mouth daily Active omeprazole (PRIL OSEC) 40 MG capsule Take 20 mg by mouth daily . 0 Active Omeprazole Activ e Comment on above: Take 20 mg by mouth once daily. pyridoxine hydrochloride 25 mg oral tablet (4 sources) pyridoxine (Berkley min B-6) 25 MG tablet [...] above: Take 100 mg by mouth . tamsulosin hydrochloride 0.4 mg oral capsule (1 source) alpha-Adrenergic Ramonita Start: take 1 capsule by mouth once daily at bedtime tamsulosin (FLOMAX) 0.4 mg Take 1 capsule by mouth daily at bedtime. 90 capsule 3 06/07/2024 Active vitamin b12 0.1 mg oral tablet (7 sources) Vitamin B12 take 1 tablet by mouth once daily cyanocobalamin (Vitamin B-12) 100 MCG tablet Take 100 mcg by mouth Daily Active Vitamin B12 Acti ve Vitamin B6 (4 sources) Vitamin B6 Activ e Completed/Discontinued Medications Medication Drug Class(es) Dates Sig (Normalized) Sig (Original) aspirin 81 mg oral tablet (14 sources) Platelet Aggregation Inhibitor, Nonsteroidal Anti-inflammatory Drug End: 09-07-2024 take 1 tablet by mouth once daily aspirin 81 MG tablet Take 81 mg by mouth daily. 09/07/2024 Discontinued (LIST CLEANUP) bcg 50 mg in NaCl 0.9% 50 mL (1 source) Start: 10-24-2021 End: 10-24-2021 bcg 50 mg in NaCl 0.9% 50 mL gramicidin 0.025 mg/ml / neomycin 1.75 mg/ml / polymyxin b [id number] unt/ml ophthalmic solution (14 sources) Aminoglycoside Antibacterial, Polymyxin-class Antibacterial Start: 09-12-2017 End: 09-07-2024 take 1 drop(s) into the eye(s) four times daily neomycin-polymyxi n-gramicidin (NEOSPORIN) 1.75-93825-.[address] 1 drop into both eyes 4 times daily 1 Bottle 09/12/2017 09/07/2024 Discontinued (LIST CLEANUP) lidocaine hydrochloride 0.02 mg/mg topical gel (11 [...] 11 mL t opical gel (XYLOCAINE, GLYDO) predniSONE 20 mg oral tablet (11 sources) Start: 11-11-2021 End: 09-07-2024 take 2 tablets by mouth once daily at mealtime predniSONE (DELTASONE) 20 MG tablet Indications: Viral upper respiratory tract infection with cough Take 2 tablets by mouth daily x 5 days. Take with food. 10 tablet 11/11/2021 09/07/2024 Discontinued (LIST CLEANUP) predniSONE EC 5 mg Delayed Release Tab Take 5 mg by mouth as needed. Active Comment on above: Take 5 mg by mouth a s needed. regadenoson (LEXISCAN) injection 0.4 mg (1 source) Start: 5 End: 5 take 0.4 mg intravenously once as needed 0.4 mg, IntraVENous, IMG ONCE PRN, 1 dose, Starting on Thu09/07/24 at 0802, Until Thu09/07/24 at 1117, Other, Only to be given in Nuclear Med during CARDIAC STRESS TEST ONLY., Pre-procedure(Stre ss) 5 ml sodium chloride 9 mg/ml injection (4 sources) Start: 5 End: 5 5-40 mL, IntraVENous, PRN, Starting on Thu09/07/24 at 0802, Until Thu09/07/24 at 1401, Line Care, FOR USE IN CARDIAC STRESS LAB ONLY. If following IV push medication, administer flush at same rate as the IV push. Flush volume is determined by type of infusion therapy being given. For non-viscous solutions use: Peripheral IV = 5 mL Midline or Central Line = 10 mL/lumen For viscous solutions (i.e. blood components, parenteral nutrition, contrast media, or after obtaining blood sample) use: Peripheral IV = 10 mL Midline or Central Line = 20 mL/lumen, Pre-procedure(Stre ss) Start: 06-07-2024 End: 06-07-2024 0.9 % sodium [...] specifications. To be provided with radiology test. technetium sestamibi (CARDIOLITE) injection 10 millicurie (1 source) Start: 2024 End: 2024 take 1 dose intravenously once 10 millicurie, IntraVENous, IMG ONCE PRN, 1 dose, Starting on 09/07/24 at 1032, Until Thu09/07/24 at 1304, Other technetium sestamibi (CARDIOLITE) injection 30 millicurie (1 source) Start: 2024 End: 2024 take 1 dose intravenously once 30 millicurie, IntraVENous, IMG ONCE PRN, 1 dose, Starting on 09/07/24 at 1032, Until Thu09/07/24 at 1304, Other 1 ml triamcinolone acetonide 40 mg/ml injection (1 source) Corticosteroid Start: 2020 End: 2020 triamcinolone acetonide (KENALOG-40) injection 120 mg Problems Active Problems Problem Classification Problem Date Documented Da te Episodic/Chronic Abdominal hernia (1 source) Diaphragmatic hernia without obstruction or gangrene Episodic Allergic reactions (2 sources) Atopic dermatitis; Translations: [Other atopic dermatitis] 11-08-2024 Chronic Blindness and vision defects (2 sources) Diplopia; Translations: [Diplopia] Onset: 5 Episodic Cancer of bladder (20 sources) Malignant tumor of urinary bladder; Translations: [Malignant neoplasm of bladder, unspecified] Onset: 8 05-11-2018 Chronic Cancer of bladder (9 sources) H/O: malignant neoplasm; Translations: [Personal history of malignant neoplasm of bladder] Onset: 2 Episodic Chronic obstructive pulmonary disease and bronchiectasis (17 sources) Chronic obstructive lung disease; Translations: [Chronic obstructive pulmonary disease, unspecified] Onset: 1 05-29-2011 Chronic Digestive congenital anomalies (8 sources) Esophageal diverticulum; 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] Onset: 2 Resolved: 2 Chronic Disorders of lipid metabolism (19 sources) Pure hypercholesterolemia; Translations: [Pure hypercholesterolemia, unspecified] Onset: 9 11-03-2018 Chronic Esophageal disorders (20 sources) Gastroesophageal reflux disease; Translations: [Gastro-esophageal reflux disease without esophagitis] Onset: 1 05-29-2011 Chronic Essential hypertension (5 sources) Essential (primary) hypertension; Translations: [Essential hypertension] Onset: 9 10-20-2023 Chronic Gout and other crystal arthropathies (1 source) Gout, unspecified; Translations: [Gout, unspecified] Onset: 5 Chronic Hyperplasia of prostate (20 sources) Benign prostatic hyperplasia; Translations: [Benign prostatic hyperplasia with lower urinary tract symptoms] Onset: 8 11-03-2018 Chronic Nonspecific chest pain (9 sources) Other chest pain; Translations: [Chest pain] Onset: 2 Episodic Osteoarthritis (20 sources) Degenerative joint disease involving [...] ARTIFICIAL HIP JOINT] Onset: 3 Chronic Other connective tissue disease (1 source) Pain in right foot; Translations: [Pain in right foot] Onset: 5 Episodic Other ear and sense organ disorders (19 sources) Hearing loss; Translations: [Unspecified hearing loss, unspecified ear] Onset: 3 05-14-2018 Chronic Other gastrointestinal disorders (12 sources) Dysphagia; Translations: [Dysphagia, unspecified] 05-06-2023 Episodic Comment on above: Problem List clean-u p per request of Phys. EHR Cmte Other gastrointestinal disorders (3 sources) Dysphagia, unspecified; Translations: [Dysphagia, unspecified] Episodic Other liver diseases (1 source) Fatty (change of) liver, not elsewhere classified; Translations: [FATTY CHANGE LIVER NEC] Onset: 3 Chronic Other non-traumatic joint disorders (1 source) Pain in right hip joint; Translations: [Pain in right hip] Episodic Other skin disorders (2 sources) Actinic keratosis; Translations: [Actinic keratosis] 11-08-2024 Episodic Other skin disorders (2 sources) Eruption; Translations: [Rash and other nonspecific skin eruption] 11-08-2024 Episodic Other upper respiratory infections (1 source) Viral upper respiratory tract infection; Translations: [Acute upper respiratory infection, unspecified] Episodic Residual codes; unclassified (10 sources) Sleep apnea; Translations: [Sleep apnea, unspecified] [...] 10-20-2023 Episodic Rheumatoid arthritis and related disease (16 sources) Rheumatoid arthritis; Translations: [Rheumatoid arthritis, unspecified] Onset: 1 11-11-2021 Chronic Spondylosis; intervertebral disc disorders; other back problems (4 sources) Degeneration of lumbar intervertebral disc; Translations: [Other intervertebral disc degeneration, lumbar region] Chronic Unclassified (1 source) Other abnormal findings on cytological and histological examination of urine; Translations: [Abnormal urine cytology] Onset: 2 Past or Other Problems Problem Classification Problem Date Documented Da te Episodic/Chronic Complications of surgical procedures or medical care (19 sources) Subcutaneous emphysema resulting from a procedure; Translations: [Emphysema (subcutaneous) resulting from a procedure, initial encounter] Onset: 03-29-2018 11-03-2018 Episodic E Codes: Struck by; against (1 source) Striking against or struck by other objects, initial encounter; Translations: [STRIKING AGNST/STRUCK OTH OBJ INIT] Onset: 07-02-2022 Episodic Genitourinary symptoms and ill-defined conditions (20 sources) Microscopic hematuria; Translations: [Other microscopic hematuria] Onset: 04-08-2018 05-11-2018 Episodic Other acquired deformities (7 sources) Lumbar spondylolisthesis; Translations: [Spondylolisthesis, lumbar region] Onset: 02-07-2020 02-07-2020 Episodic Other aftercare (1 source) Other group home (current) drug therapy; Translations: [OTH DOCUMENT PREPARER MICROFILMING CURRENT DRUG THERAPY] Onset: 07-02-2022 Episodic Other connective tissue disease (1 source) Arthrodesis status; Translations: [ARTHRODESIS STATUS] Onset: 07-02-2022 Episodic Residual codes; unclassified (20 sources) Disorder of digestive tract; Translations: [Acquired absence of other specified parts of digestive tract] Onset: 04-14-2018 11-03-2018 Episodic Residual codes; unclassified (1 source) Acquired absence of other specified parts of digestive tract; Translations: [ACQ ABSENCE OTH PART DIGESTV TRACT] Onset: 07-02-2022 Episodic Spondylosis; intervertebral disc disorders; other back problems (20 sources) Backache; Translations: [Spinal stenosis of lumbar region] Onset: 02-07-2020 Resolved: 10-20-2023 02-07-2020 Episodic Superficial injury; contusion (4 sources) Contusion of right lower leg, initial encounter; Translations: [CONTUSION RIGHT LOWER LEG INITIAL] Onset: 06-30-2022 Episodic Results Test Name Value Interpretation Reference Range Facility No Panel Informationon 11-08 [facility] reactive protein [Mass/vol ume] in Serum or PlasmaOrdered By: Zhou Fischer on 10-05-2024 CRP [Mass/Vol] C reactive protein [Mass/volume] in Serum or Plasma 0.0-0.5 [facility] C-Reactive Proteinon 025 CRP [Mass/Vol] mg/L Normal 0.0-0.5 [facility] Comment on above: Result Comment: PERF ORMED BY: [place] [address] PATHOLOGIST [employer] B[employer] BETY CATALAN M.D. Performed By: #### C REAT, ESR, HEPATIC, CBC #### [facility] [address] [place] [address] Erythrocyte Sedimentation Ra pennie 10-05-2024 ESR (Bld) [Velocity] 3 mm/h Normal 0-19 [facility] Comment on above: Result Comment: PERF ORMED BY: [place] [address] PATHOLOGIST [employer] B[employer]ER BETY CATALAN M.D. Performed By: #### C REAT, ESR, HEPATIC, CBC #### [place] [id number] [place] Erythrocyte sedimentation ra te by Photometric methodOrdered By: Zhou Fischer on 10-05-2024 ESR Photometric method (Bld) [Velocity] Erythrocyte sedimentation rate by Photometric method 0-19 [facility] Urate [Mass/volume] in Serum or PlasmaOrdered By: Zhou Fischer on 10-05-2024 Urate [Mass/Vol] Urate [Mass/volume] in Serum or Plasma 4.4-7.6 [facility] Uric Acidon 10-05-2024 Urate [Mass/Vol] 5.4 mg/dL Normal 4.4-7.6 [facility] Comment on above: Performed By: #### C REAT, ESR, HEPATIC, CBC #### [facility] [address] No Panel InformationOrdered By: Jose Francisco Dickey on 09-07-2024 Baseline Diastolic BP 81 mmHg [employer] Phone: Baseline HR 57 BPM [employer] Phone: Baseline Systolic BP 126 mmHg [employer] Phone: LV EDV BP 110 mL 67 - 155 mL [employer] Phone: LV ESV BP 37 mL 22 - 58 mL [employer] Phone: LVOT Stroke Volume 74 mL [place] [employer] Work Phone: Nuc Stress EF 67 % [employer] Work Phone: Stress Diastolic BP 79 mmHg [place] [employer] Work Phone: Stress Estimated Workload 1 METS [employer] Phone: Stress Peak HR 82 BPM [employer] Phone: Stress Percent HR Achieved 56 % [employer] Phone: Stress Rate Pressure Product 36206 BPM*mmHg [employer] Phone: Stress ST Depression 0 mm [employer] Phone: Stress Systolic BP 133 mmHg [place] [employer] Work Phone: Stress Target HR 147 bpm Mao Fowlero urs [employer] Work Phone: TID 1.15 Mao Garcia [employer] Work Phone: Mao Garcia [employer] Work Phone: No Panel Informationon 09-07 Stress Combined Conclusion: Normal pharmacological myocardial perfusion study. Findings suggest a low risk of cardiac events. Stress Function: Left ventricular function post-stress is normal. Post-stress ejection fraction is 67%. The stress end diastolic cavity size is normal. Stress end diastolic volume: 110 mL. The stress end systolic cavity size is normal. Stress end systolic volume: 37 mL. Stress stroke volume: 74.0 mL. Perfusion Comments: LV perfusion is normal. Perfusion Defect: There is a left ventricular stress perfusion defect present in the inferior segment(s). This defect was visualized during the stress and rest phases of imaging. The defect appears to be an artifact caused by subdiaphragmatic activity. Perfusion Conclusion: There is no evidence of transient ischemic dilation (TID). TID ratio is 1.15. ECG: The stress ECG was not diagnostic due to pharmacologic protocol. Stress Test: A pharmacological stress test was performed using regadenoson (Lexiscan). Blood pressure demonstrated a normal response and heart rate demonstrated a normal response to stress. The patient's heart rate recovery was normal. Image quality is good. Resting ECG ECG is normal. Stress Findings A pharmacological stress test was performed using regadenoson (Lexiscan). The patient reached the end of the protocol. Blood pressure demonstrated a normal response and heart rate demonstrated a normal response to stress. The patient's heart rate recovery was normal. Stress ECG There were no arrhythmias during stress. No ST deviation was noted. There were no noted arrhythmias during recovery. There were no ST changes during recovery. The stress ECG was not diagnostic due to pharmacologic protocol. Nuclear Study Quality Nuclear Cardiac SPECT rest then gated stress with tomographic imaging/tomography utilized for the myocardial perfusion procedure. Lexiscan was used as the stressing method and agent. (Lexiscan given via a 10 - 20 sec injection). One day myocardial perfusion study (09/07/2024). This Single Photon Emission Computer Tomography (SPECT) study utilized tomographic imaging/tomography for the tomographic myocardial perfusion imaging performed during this study. Overall image quality is good. There was no increased lung uptake of the radiopharmaceutical . Perfusion Comments LV perfusion is normal. Perfusion Defect There is a left ventricular stress perfusion defect present in the inferior segment(s). This defect was visualized during the stress and rest phases of imaging. The defect appears to be an artifact caused by subdiaphragmatic activity. Perfusion Defect Conclusion There is no evidence of transient ischemic dilation (TID). TID ratio is 1.15. Stress Function Comments Left ventricular function post-stress is normal. Post-stress ejection fraction is 67%. The stress end diastolic cavity size is normal. Stress end diastolic volume: 110 mL. The stress end systolic cavity size is normal. Stress end systolic volume: 37 mL. Stress stroke volume: 74.0 mL. Stress Combined Conclusion Normal pharmacological myocardial perfusion study. Findings suggest a low risk of cardiac events. Wall Scoring Stress Score Index: 1.00 The left ventricular wall motion is normal. Perfusion Scoring Resting Summed Score: 0 Percent Normal: 0.00% The left ventricular perfusion is normal. Perfusion Scoring Stress Summed Score: 0 Percent Normal: 0.00% The left ventricular perfusion is normal. Perfusion Scores: SRS Score: 0 Percentage Abnormal: 0.00% Perfusion Scores: SSS Score: 0 Percentage Abnormal: 0.00% Perfusion Scores: SDS Score: 0 Percentage Abnormal: 0.00% [facility] CV RPACS STRESS Radiology Study observation (narrative) [facility] X-ray reportOrdered By: Antoine Geronimo on 08-30-2024 Study report [facility] Main [place] [address] [place] [address] XRay Report Signed Patient: Timur Francisco MR#: [id number] : 1950 Acct:[id number] Age/Sex: 73 / M ADM Date: 5 Loc: ICXD Room: Type: [facility] Attending Dr: Zhou Fischer MD Copies to: Zhou Fischer MD~ Ordering Provider: Zhou Fischer MD Date of Service: 08/30/24 XR/XR foot RT 2V: FOOT PAIN Right foot 2 views. Reason for exam: First metatarsal phalangeal joint pain COMPARISON: None. FINDINGS: No focal soft tissue abnormality or acute bony process. Bones are grossly demineralized. Plantar spurring. Degenerative changes are noted involving the midfoot. Mild degenerative changes of the IP joints. No bony erosions are seen particularly involving the MTP joint of the first digit. XR/XR foot RT 2V IMPRESSION: Degenerative changes involving the right foot with plantar spurring. No acute bony process. Impression dictated by: Horacio Geronimo Jr., D.O.08/30/2024 3:20 PM Dictation Location: RADIO-PC-23 Transcribed By: PWS 08/30/24 1520 Dictated By: Horacio Geronimo Jr, DO 08/30/24 1519 Signed By: 08/30/24 1520 [facility] XR foot RT 2Von 08-30-2024 XR foot RT 2V [facility] [place] [address] XRay Report Signed Patient: Timur Francisco MR#: [id number] : 1950 Acct:[id number] Age/Sex: 73 / M ADM Date: 08/30/24 Loc: ICXD Room: Type: [facility] Attending Dr: Zhou Fischer MD Copies to: Zhou Fischer MD Ordering Provider: Zhou Fischer MD Date of Service: 08/30/24 XR/XR foot RT 2V: FOOT PAIN Right foot 2 views. Reason for exam: First metatarsal phalangeal joint pain COMPARISON: None. FINDINGS: No focal soft tissue abnormality or acute bony process. Bones are grossly demineralized. Plantar spurring. Degenerative changes are noted involving the midfoot. Mild degenerative changes of the IP joints. No bony erosions are seen particularly involving the MTP joint of the first digit. XR/XR foot RT 2V IMPRESSION: Degenerative changes involving the right foot with plantar spurring. No acute bony process. Impression dictated by: Horacio Geronimo Jr., D.O.08/30/2024 3:20 PM Dictation Location: RADIO-PC-23 Transcribed By: PWS 08/30/24 1520 Dictated By: Horacio Geronimo Jr, DO 08/30/24 1519 Signed By: 08/30/24 1520 Normal [facility] MR BRAIN WITH AND WITHOUT CO NTRASTon 08-18-2024 MR BRAIN WITH AND WITHOUT CONTRAST EXAMINATION: MR BRAIN WITH AND WITHOUT CONTRAST HISTORY: Diplopia PT/FAX Injury/Trauma or Illness?:Illness/Ot her How long have you had these symptoms (acute/chronic)?:Ch ronic Reason for exam?:Worsening double vision x 2 years Type of Exam?:Initial H53.2 Diplopia PT/FAX Injury/Trauma or Illness?:Illness/Ot her TECHNIQUE: Multiplanar multiecho sequences were performed through the brain utilizing T1 and T2 weighting, as well as T2 gradient echo sequences, and axial diffusion weighted images. 3D T1 MPR postcontrast with reformatted. Imaging was performed with and without contrast administration: 18 mL of contrast:DOTAREM FINDINGS: Diagnostic Quality: Adequate. The brain sulci and ventricles are overall within normal limits for patient age. There are numerous T2 hyperintensity foci in the periventricular deep white matter centrum semiovale which are nonspecific in appearance but likely represent chronic microvascular ischemic changes. Similar changes noted in the central portion of the akshat. There is no intraparenchymal mass, mass effect or midline shift is noted. No abnormal extra-axial fluid collections are seen. The basal cisterns are patent. No definite evidence of acute infarction or intracranial hemorrhage within limitation of the study. The thin axial T2 images through the posterior fossa demonstrate no definite abnormal masses within limitations study. No abnormal enhancement is noted. Vascular Flow Voids: Normal. Paranasal Sinuses and Mastoid Air Cells: Grossly clear. Orbits: No definite masses within the limitations of the study. Extracranial Findings: None. Craniocervical Junction and Skull Base: No tonsillar ectopia or mass is present. IMPRESSION: 1. No acute intracranial abnormality or abnormal enhancement within limitations study. 2. Txmn-[id number]-[id number] amount of chronic microvascular ischemic changes. Workstation ID: [id number] Dictated by: SHAW JULIAN on Sat Aug 20, 2024 11:56:56 AM EST Transcribed by: SHAW JULIAN on Sat Aug 20, 2024 11:56:56 AM EST Finalized by: SHAW JULIAN on Sat Aug 20, 2024 11:56:56 AM EST Normal [facility] Comment on above: Order Comment: PT/FA X Injury/Trauma or Illness?:Illness/Other How long have you had these symptoms (acute/chronic)?:Chronic Reason for exam?:Worsening double vision x 2 years Type of Exam?:Initial Additional signs and symptoms?:na [facility] CYTOLOGY NON-GYNon 06-09 [facility] CASE REPORT [facility] Comment on above: Medical Cytology Rep ort Case: [id number] Authorizing Provider: Nanci Carvajal MD Collected: 06/07/2024 02:18 PM Ordering Location: Urology Received: 06/07/2024 08:24 PM Pathologist: Keiko Roque MD Specimen: Urine, Midstream [facility] CLINICAL HISTORY history of bladder canccer [facility] FINAL DIAGNOSIS [facility] Comment on above: A - Urine, Midstream Suspicious for high-grade urothelial carcinoma (see comment). FINAL PERFORMING LAB [facility] Comment on above: Technical component, anesthetic assistant screening performed at [facility], [address] [place] [address] CLIA# [id number] Diagnostic interpretation performed at [facility], [address] [place] [address] CLIA# [id number] Service Girl: Reid Monteiro M.D. [facility] GROSS DESCRIPTION [facility] Comment on above: A. Urine, Midstream 100 cc clear yellow fluid. ThinPrep prepared. Specimen Type: URINE SPECIMEN Ordering Facility: [facility] Address: [address] [place] [address] Original Ordering Provider: NANCI CARVAJAL [facility] Health[facility] e CNOVon 06-07-2024 CNOV Office Visit (UROSMN) ---- TIMUR FRANCISCO ([id number]) 1950 M Date Time Provider Department 06/07/24 2:00 PM NANCI CARVAJAL During your visit today, we recorded the following information about you: Gregorio Higgins RN 06/07/2024 2:17 PM Signed Patient ID with (2) Identifiers, Verified by: Grgeorio Higgins RN Actual procedure/procedure scheduled: Yes Performing provider/scheduled provider: Yes Patient was roomed in: 9- 06 Instrument Repair Specialist offered:Patient declines Patient arrived in the room [...] Education Session: None Instruction Provided To: Patient Eligibility Services Representative Present: not applicable Discipline: Nursing Learning Topic: [...] 6 mon (more content not included)... Normal [facility] CYTOLOGY NON-GYNon CASE REPORT Normal [facility] Comment on above: Order Comment: Speci men Type: URINE SPECIMEN Ordering Facility: [facility] Address: [address] [place] [address] Result Comment: [facility] Cytology Report Case: [id number] Authorizing Provider: Nanci Carvajal MD Collected: 06/07/2024 02:18 PM Ordering Location: Urology Received: 06/07/2024 08:24 PM Pathologist: Keiko Roque MD Specimen: Urine, Midstream Performed By: #### C YTONON #### [facility] CLIA [id number] [address] [place] [address] [place] CLINICAL HISTORY history of bladder canccer Normal [facility] Comment on above: Order Comment: Speci men Type: URINE SPECIMEN Ordering Facility: [facility] Address: [address] [place] [address] Performed By: #### C YTONON #### [facility] CLIA [id number] [address] [place] [address] OF [facility] FINAL DIAGNOSIS Normal [facility] Comment on above: Order Comment: Speci men Type: URINE SPECIMEN Ordering Facility: [facility] Address: [address] [place] [address] Result Comment: A - Urine, Midstream Suspicious for high-grade urothelial carcinoma (see comment). Performed By: #### C YTONON #### [facility] CLIA [id number] [address] [place] [address] [place] FINAL PERFORMING LAB Normal [facility] Comment on above: Order Comment: Speci men Type: URINE SPECIMEN Ordering Facility: [facility] Address: [address] [place] [address] Result Comment: Tech nical component, anesthetic assistant screening performed at [facility], [address] [place] [address] CLIA# [id number] Diagnostic interpretation performed at [facility], [address] [place] [address] CLIA# [id number] Service Girl: Reid Monteiro M.D. Performed By: #### C YTONON #### [facility] CLIA [id number] [address] [place] [address] [place] GROSS DESCRIPTION Normal [facility] Comment on above: Order Comment: Speci men Type: URINE SPECIMEN Ordering Facility: [facility] Address: [address] [place] [address] Result Comment: A. U rine, Midstream 100 cc clear yellow fluid. ThinPrep prepared. Performed By: #### C YTONON #### [facility] CLIA [id number] [address] [place] [address] [place] Alanine aminotransferase [En zymatic activity/volume] in Serum or PlasmaOrdered By: Zhou Fischer on 05-02-2024 ALT [Catalytic activity/Vol] 32 U/L Normal 7-52 [facility] Comment on above: Performed By: #### C REAT, ESR, HEPATIC, CBC #### [facility] [address] [place] [address] [place] Albumin [Mass/volume] in Ser um or Plasma by Bromocresol green (BCG) dye binding methoOrdered By: Zhou Fischer on 05-02-2024 Albumin BCG dye [Mass/Vol] 4.4 g/dL 3.5-5.7 [facility] Alkaline phosphatase [Enzyma tic activity/volume] in Serum or PlasmaOrdered By: Zhou Fischer on 05-02-2024 ALP [Catalytic activity/Vol] 66 U/L Normal 34-104 [facility] Comment on above: Performed By: #### C REAT, ESR, HEPATIC, CBC #### [facility] [address] [place] [id number] [place] Aspartate aminotransferase [ Enzymatic activity/volume] in Serum or PlasmaOrdered By: Zhou Fischer on 05-02-2024 AST [Catalytic activity/Vol] 27 U/L Normal 13-39 [facility] Comment on above: Performed By: #### C REAT, ESR, HEPATIC, CBC #### [facility] [address] Automated basophil %Ordered By: Zhou Fischer on 05-02-2024 Basophils/100 WBC (Bld) 0.7 % Normal . [facility] Comment on above: Performed By: #### C REAT, ESR, HEPATIC, CBC #### [address] Automated basophil countOrde red By: Zhou Fischer on 05-02-2024 Basophils (Bld) [#/Vol] 0.0 10*3/uL Normal 0.0-0.2 [facility] Comment on above: Performed By: #### C REAT, ESR, HEPATIC, CBC #### [address] Automated blood monocyte cou ntOrdered By: Zhou Fischer on 05-02-2024 Monocytes (Bld) [#/Vol] 0.6 10*3/uL Normal 0.0-0.8 [facility] Comment on above: Performed By: #### C REAT, ESR, HEPATIC, CBC #### [address] Automated eosinophil %Ordere d By: Zhou Fischer on 05-02-2024 Eosinophils/100 WBC (Bld) 2.4 % Normal . [facility] Comment on above: Performed By: #### C REAT, ESR, HEPATIC, CBC #### [address] Automated eosinophil countOr dered By: Zhou Fischer on 05-02-2024 Eosinophils (Bld) [#/Vol] 0.1 10*3/uL Normal 0.0-0.45 [facility] Comment on above: Performed By: #### C REAT, ESR, HEPATIC, CBC #### [address] Automated monocyte %Ordered By: Zhou Fischer on 05-02-2024 Monocytes/100 WBC (Bld) 11.5 % Normal . [facility] Comment on above: Performed By: #### C REAT, ESR, HEPATIC, CBC #### [address] Automated neutrophil %Ordere d By: Zhou Fischer on 05-02-2024 Neutrophils/100 WBC (Bld) 55.5 % Normal . [facility] Comment on above: Performed By: #### C REAT, ESR, HEPATIC, CBC #### [facility] [address] [place] [address] Bilirubin.direct [Mass/volum e] in Serum or PlasmaOrdered By: Zhou Fischer on 05-02-2024 Bilirubin.direct [Mass/Vol] 0.10 mg/dL 0.03-0.18 [facility] Bilirubin.total [Mass/volume ] in Serum or PlasmaOrdered By: Zhou Fischer on 05-02-2024 Bilirubin [Mass/Vol] 0.5 mg/dL Normal 0.3-1.0 [facility] Comment on above: Performed By: #### C REAT, ESR, HEPATIC, CBC #### [address] Complete Blood Count Auto Di ffon 05-02-2024 Mean Corpuscular HGB Conc 34.8 g/dL Normal 32.5-35.6 [facility] Comment on above: Performed By: #### C REAT, ESR, HEPATIC, CBC #### [address] NRBC% 0.2 /100{WBC} Normal 0-0.5 [facility] Comment on above: Performed By: #### C REAT, ESR, HEPATIC, CBC #### [address] Creatinineon 05-02-2024 GFR/1.73 sq M.predicted MDRD (S/P/Bld) [Vol rate/Area] mL/min/{1.73_m2} Normal [facility] Comment on above: Result Comment: PERF ORMED BY: [address] [place] [address] PATHOLOGIST [employer] LIZANDRO HOFF M.D. Performed By: #### C REAT, ESR, HEPATIC, CBC #### [address] Creatinine [Mass/volume] in Serum or PlasmaOrdered By: Zhou Fischer on 05-02-2024 Creatinine [Mass/Vol] 0.79 mg/dL Normal 0.70-1.30 [facility] Comment on above: Performed By: #### C REAT, ESR, HEPATIC, CBC #### [address] Erythrocyte Sedimentation Ra pennie 05-02-2024 ESR (Bld) [Velocity] 7 mm/h Normal 0-19 [facility] Comment on above: Result Comment: PERF ORMED BY: [place] [address] PATHOLOGIST [employer] LIZANDRO HOFF M.D. Performed By: #### C REAT, ESR, HEPATIC, CBC #### [address] Erythrocyte distribution wid th [Ratio] by Automated countOrdered By: Zhou Fischer on 05-02-2024 Erythrocyte distribution width (RBC) [Ratio] 13.6 % Normal 12.0-14.8 [facility] Comment on above: Performed By: #### C REAT, ESR, HEPATIC, CBC #### [address] Erythrocyte sedimentation ra te by Photometric methodOrdered By: Zhou Fischer on 05-02-2024 ESR Photometric method (Bld) [Velocity] 7 mm/hr 0-19 [facility] Erythrocytes [#/volume] in B lood by Automated countOrdered By: Zhou Fischer on 05-02-2024 RBC (Bld) [#/Vol] 4.56 10*6/uL Normal 3.90-5.60 [facility] Comment on above: Performed By: #### C REAT, ESR, HEPATIC, CBC #### [address] Hematocrit [Volume Fraction] of Blood by Automated countOrdered By: Zhou Fischer on 05-02-2024 Hematocrit (Bld) [Volume fraction] 41.9 % Normal 38.8-50.0 [facility] Comment on above: Performed By: #### C REAT, ESR, HEPATIC, CBC #### [address] Hemoglobin [Mass/volume] in BloodOrdered By: Zhou Fischer on 05-02-2024 Hemoglobin (Bld) [Mass/Vol] 14.6 g/dL Normal 13.0-17.0 [facility] Comment on above: Performed By: #### C REAT, ESR, HEPATIC, CBC #### [address] Hepatic Panelon 05-02-2024 Albumin [Mass/Vol] 4.4 g/dL Normal 3.5-5.7 [facility] Comment on above: Performed By: #### C REAT, ESR, HEPATIC, CBC #### [address] Bilirubin,Indirect 0.4 mg/dL Normal [facility] Comment on above: Performed By: #### C REAT, ESR, HEPATIC, CBC #### [address] Bilirubin.indirect [Mass/Vol] 0.10 mg/dL Normal 0.03-0.18 [facility] Comment on above: Performed By: #### C REAT, ESR, HEPATIC, CBC #### [address] Leukocytes [#/volume] correc basim for nucleated erythrocytes in Blood by Automated counOrdered By: Zhou Fischer on 05-02-2024 WBC corrected for nucl RBC Auto (Bld) [#/Vol] 5.3 10*3/uL 4.1-10.5 [facility] Leukocytes [#/volume] in Blo od by Automated countOrdered By: Zhou Fischer on 05-02-2024 WBC (Bld) [#/Vol] 5.3 10*3/uL Normal 4.1-10.5 [facility] Comment on above: Performed By: #### C REAT, ESR, HEPATIC, CBC #### [facility] [address] Lymphocytes [#/volume] in Bl ood by Automated countOrdered By: Zhou Fischer on 05-02-2024 Lymphocytes (Bld) [#/Vol] 1.6 10*3/uL Normal 1.00-4.8 [facility] Comment on above: Performed By: #### C REAT, ESR, HEPATIC, CBC #### [facility] [address] Lymphocytes/100 leukocytes i n Blood by Automated countOrdered By: Zhou Fischer on 05-02-2024 Lymphocytes/100 WBC (Bld) 29.9 % Normal . [facility] Comment on above: Performed By: #### C REAT, ESR, HEPATIC, CBC #### [address] MCH [Entitic mass] by [place] basim countOrdered By: Zhou Fischer on 05-02-2024 MCH (RBC) [Entitic mass] 31.9 pg Normal 27.5-35.2 [facility] Comment on above: Performed By: #### C REAT, ESR, HEPATIC, CBC #### [address] MCHC Auto (RBC) [Mass/Vol]Or dered By: Zhou Fischer on 05-02-2024 MCHC (RBC) [Mass/Vol] 34.8 g/dL 32.5-35.6 [facility] MCV [Entitic volume] by Auto mated countOrdered By: Zhou Fischer on 05-02-2024 MCV (RBC) [Entitic vol] 91.9 fL Normal 83.5-101 [facility] Comment on above: Performed By: #### C REAT, ESR, HEPATIC, CBC #### [address] Neutrophils [#/volume] in Bl ood by Automated countOrdered By: Zhou Fischer on 05-02-2024 Neutrophils (Bld) [#/Vol] 3.0 10*3/uL Normal 1.8-7.7 [facility] Comment on above: Performed By: #### C REAT, ESR, HEPATIC, CBC #### [facility] [address] [place] [address] No Panel InformationOrdered By: Zhou Fischer on 05-02-2024 Estimated GFR (CKD-EPI) > 60.0 mL/Min [facility] Creatinine Clearance (Chem N/A [facility] Nucleated erythrocytes [Pres ence] in Blood by Automated countOrdered By: Zhou Fischer on 05-02-2024 Nucleated RBC Auto Ql (Bld) 0.2 /100{WBC} 0-0.5 [facility] Platelet mean volume [Entiti c volume] in Blood by Automated countOrdered By: Zhou Fischer on 05-02-2024 Platelet mean volume (Bld) [Entitic vol] 8.4 fL Normal 6.6-10.1 [facility] Comment on above: Performed By: #### C REAT, ESR, HEPATIC, CBC #### [facility] [address] [place] [address] Platelets [#/volume] in Bloo d by Automated countOrdered By: Zhou Fischer on 05-02-2024 Platelets (Bld) [#/Vol] 313 10*3/uL Normal 150-450 [facility] Comment on above: Performed By: #### C REAT, ESR, HEPATIC, CBC #### [facility] [address] [place] [address] Protein [Mass/volume] in Ser um or PlasmaOrdered By: Zhou Fischer on 05-02-2024 Protein [Mass/Vol] 6.7 g/dL Normal 6.4-8.9 [facility] Comment on above: Performed By: #### C REAT, ESR, HEPATIC, CBC #### [address] Serum globulin measurement b y calculation (mass/volume)Ordered By: Zhou Fischer on 05-02-2024 Globulin (S) [Mass/Vol] 2.3 g/dL Normal [facility] Comment on above: Performed By: #### C REAT, ESR, HEPATIC, CBC #### [facility] [address] Serum or plasma albumin/glob ulin mass ratioOrdered By: Zhou Fischer on 05-02-2024 Albumin/Globulin [Mass ratio] 1.9 {ratio} Normal [facility] Comment on above: Performed By: #### C REAT, ESR, HEPATIC, CBC #### [address] Serum or plasma non-glucuron idated bilirubin measurement (mass/volume)Ordered By: Zhou Fischer on 05-02-2024 Bilirubin.indirect [Mass/Vol] 0.4 mg/dL [facility] Alanine aminotransferase [En zymatic activity/volume] in Serum or PlasmaOrdered By: Zhou Fischer on 03-16-2024 ALT [Catalytic activity/Vol] 21 U/L Normal 7-52 [facility] Comment on above: Performed By: #### H EPATIC, ESR, CREAT, CBC #### [address] Albumin [Mass/volume] in Ser um or Plasma by Bromocresol green (BCG) dye binding methoOrdered By: Zhou Fischer on 03-16-2024 Albumin BCG dye [Mass/Vol] 4.3 g/dL 3.5-5.7 [facility] Alkaline phosphatase [Enzyma tic activity/volume] in Serum or PlasmaOrdered By: Zhou Fischer on 03-16-2024 ALP [Catalytic activity/Vol] 70 U/L Normal 34-104 [facility] Comment on above: Performed By: #### H EPATIC, ESR, CREAT, CBC #### [facility] [address] [place] [address] Aspartate aminotransferase [ Enzymatic activity/volume] in Serum or PlasmaOrdered By: Zhou Fischer on 03-16-2024 AST [Catalytic activity/Vol] 20 U/L Normal 13-39 [facility] Comment on above: Performed By: #### H EPATIC, ESR, CREAT, CBC #### [facility] [address] Automated basophil %Ordered By: Zohu Fischer on 03-16-2024 Basophils/100 WBC (Bld) 0.9 % Normal . [facility] Comment on above: Performed By: #### C REAT, ESR, HEPATIC, CBC #### [address] Automated basophil countOrde red By: Zhou Fischer on 03-16-2024 Basophils (Bld) [#/Vol] 0.0 10*3/uL Normal 0.0-0.2 [facility] Comment on above: Performed By: #### C REAT, ESR, HEPATIC, CBC #### [address] Automated blood monocyte cou ntOrdered By: Zhou Fischer on 03-16-2024 Monocytes (Bld) [#/Vol] 0.4 10*3/uL Normal 0.0-0.8 [facility] Comment on above: Performed By: #### C REAT, ESR, HEPATIC, CBC #### [address] Automated eosinophil %Ordere d By: Zhou Fischer on 03-16-2024 Eosinophils/100 WBC (Bld) 2.8 % Normal . [facility] Comment on above: Performed By: #### C REAT, ESR, HEPATIC, CBC #### [address] Automated eosinophil countOr dered By: Zhou Fischer on 03-16-2024 Eosinophils (Bld) [#/Vol] 0.1 10*3/uL Normal 0.0-0.45 [facility] Comment on above: Performed By: #### C REAT, ESR, HEPATIC, CBC #### [address] Automated monocyte %Ordered By: Zhou Fischer on 03-16-2024 Monocytes/100 WBC (Bld) 9.1 % Normal . [facility] Comment on above: Performed By: #### C REAT, ESR, HEPATIC, CBC #### [facility] [address] Automated neutrophil %Ordere d By: Zhou Fischer on 03-16-2024 Neutrophils/100 WBC (Bld) 50.3 % Normal . [facility] Comment on above: Performed By: #### C REAT, ESR, HEPATIC, CBC #### [facility] [address] Bilirubin.direct [Mass/volum e] in Serum or PlasmaOrdered By: Zhou Fischer on 03-16-2024 Bilirubin.direct [Mass/Vol] 0.10 mg/dL 0.03-0.18 [facility] Bilirubin.total [Mass/volume ] in Serum or PlasmaOrdered By: Zhou Fischer on 03-16-2024 Bilirubin [Mass/Vol] 0.7 mg/dL Normal 0.3-1.0 [facility] [place] Comment on above: Performed By: #### H EPATIC, ESR, CREAT, CBC #### [address] Complete Blood Count Auto Di ffon 03-16-2024 Mean Corpuscular HGB Conc 34.0 g/dL Normal 32.5-35.6 [facility] Comment on above: Performed By: #### C REAT, ESR, HEPATIC, CBC #### [address] NRBC% 0.1 /100{WBC} Normal 0-0.5 [facility] Comment on above: Performed By: #### C REAT, ESR, HEPATIC, CBC #### [address] Creatinineon 03-16-2024 GFR/1.73 sq M.predicted MDRD (S/P/Bld) [Vol rate/Area] mL/min/{1.73_m2} Normal [facility] Comment on above: Result Comment: PERF ORMED BY: [place] [address] PATHOLOGIST [employer] LIZANDRO HOFF M.D. Performed By: #### C REAT, ESR, HEPATIC, CBC #### [address] Creatinine [Mass/volume] in Serum or PlasmaOrdered By: Zhou Fischer on 03-16-2024 Creatinine [Mass/Vol] 0.85 mg/dL Normal 0.70-1.30 [facility] Comment on above: Performed By: #### C REAT, ESR, HEPATIC, CBC #### [address] Erythrocyte Sedimentation Ra pennie 03-16-2024 ESR (Bld) [Velocity] 4 mm/h Normal 0-19 [facility] Comment on above: Result Comment: PERF ORMED BY: [place] [address] PATHOLOGIST [employer] LIZANDRO HOFF M.D. Performed By: #### C REAT, ESR, HEPATIC, CBC #### [address] Erythrocyte distribution wid th [Ratio] by Automated countOrdered By: Zhou Fischer on 03-16-2024 Erythrocyte distribution width (RBC) [Ratio] 13.9 % Normal 12.0-14.8 [facility] Comment on above: Performed By: #### C REAT, ESR, HEPATIC, CBC #### [address] Erythrocyte sedimentation ra te by Photometric methodOrdered By: Zhou Fischer on 03-16-2024 ESR Photometric method (Bld) [Velocity] 4 mm/hr 0-19 [facility] Erythrocytes [#/volume] in B lood by Automated countOrdered By: Zhou Fischer on 03-16-2024 RBC (Bld) [#/Vol] 4.50 10*6/uL Normal 3.90-5.60 [facility] Comment on above: Performed By: #### C REAT, ESR, HEPATIC, CBC #### [address] Hematocrit [Volume Fraction] of Blood by Automated countOrdered By: Zhou Fischer on 03-16-2024 Hematocrit (Bld) [Volume fraction] 42.1 % Normal 38.8-50.0 [facility] Comment on above: Performed By: #### C REAT, ESR, HEPATIC, CBC #### [facility] [address] Hemoglobin [Mass/volume] in BloodOrdered By: Zhou Fischer on 03-16-2024 Hemoglobin (Bld) [Mass/Vol] 14.3 g/dL Normal 13.0-17.0 [facility] Comment on above: Performed By: #### C REAT, ESR, HEPATIC, CBC #### [facility] [address] Hepatic Panelon 03-16-2024 Albumin [Mass/Vol] 4.3 g/dL Normal 3.5-5.7 [facility] Comment on above: Performed By: #### H EPATIC, ESR, CREAT, CBC #### [address] Bilirubin,Indirect 0.6 mg/dL Normal [facility] Comment on above: Performed By: #### H EPATIC, ESR, CREAT, CBC #### [address] Bilirubin.indirect [Mass/Vol] 0.10 mg/dL Normal 0.03-0.18 [facility] Comment on above: Performed By: #### H EPATIC, ESR, CREAT, CBC #### [address] Leukocytes [#/volume] correc basim for nucleated erythrocytes in Blood by Automated counOrdered By: Zhou Fischer on 03-16-2024 WBC corrected for nucl RBC Auto (Bld) [#/Vol] 4.6 10*3/uL 4.1-10.5 [facility] Leukocytes [#/volume] in Blo od by Automated countOrdered By: Zhou Fischer on 03-16-2024 WBC (Bld) [#/Vol] 4.6 10*3/uL Normal 4.1-10.5 [facility] Comment on above: Performed By: #### C REAT, ESR, HEPATIC, CBC #### [facility] [address] Lymphocytes [#/volume] in Bl ood by Automated countOrdered By: Zhou Fischer on 03-16-2024 Lymphocytes (Bld) [#/Vol] 1.7 10*3/uL Normal 1.00-4.8 [facility] Comment on above: Performed By: #### C REAT, ESR, HEPATIC, CBC #### [facility] [address] Lymphocytes/100 leukocytes i n Blood by Automated countOrdered By: Zhou Fischer on 03-16-2024 Lymphocytes/100 WBC (Bld) 36.9 % Normal . [facility] Comment on above: Performed By: #### C REAT, ESR, HEPATIC, CBC #### [address] MCH [Entitic mass] by Automa basim countOrdered By: Zhou Fischer on 03-16-2024 MCH (RBC) [Entitic mass] 31.8 pg Normal 27.5-35.2 [facility] Comment on above: Performed By: #### C REAT, ESR, HEPATIC, CBC #### [address] MCHC Auto (RBC) [Mass/Vol]Or dered By: Zhou Fischer on 03-16-2024 MCHC (RBC) [Mass/Vol] 34.0 g/dL 32.5-35.6 [facility] MCV [Entitic volume] by Auto mated countOrdered By: Zhou Fischer on 03-16-2024 MCV (RBC) [Entitic vol] 93.5 fL Normal 83.5-101 [facility] Comment on above: Performed By: #### C REAT, ESR, HEPATIC, CBC #### [address] Neutrophils [#/volume] in Bl ood by Automated countOrdered By: Zhou Fischer on 03-16-2024 Neutrophils (Bld) [#/Vol] 2.3 10*3/uL Normal 1.8-7.7 [facility] Comment on above: Performed By: #### C REAT, ESR, HEPATIC, CBC #### [facility] [address] No Panel InformationOrdered By: Zhou Fischer on 03-16-2024 Estimated GFR (CKD-EPI) > 60.0 mL/Min [facility] Creatinine Clearance (Chem N/A [facility] Nucleated erythrocytes [Pres ence] in Blood by Automated countOrdered By: Zhou Fischer on 03-16-2024 Nucleated RBC Auto Ql (Bld) 0.1 /100{WBC} 0-0.5 [facility] Platelet mean volume [Entiti c volume] in Blood by Automated countOrdered By: Zhou Fischer on 03-16-2024 Platelet mean volume (Bld) [Entitic vol] 8.6 fL Normal 6.6-10.1 [facility] Comment on above: Performed By: #### C REAT, ESR, HEPATIC, CBC #### [facility] [address] [place] [address] Platelets [#/volume] in Bloo d by Automated countOrdered By: Zhou Fischer on 03-16-2024 Platelets (Bld) [#/Vol] 290 10*3/uL Normal 150-450 [facility] Comment on above: Performed By: #### C REAT, ESR, HEPATIC, CBC #### [facility] [address] [place] [address] Protein [Mass/volume] in Ser um or PlasmaOrdered By: Zhou Fischer on 03-16-2024 Protein [Mass/Vol] 6.4 g/dL Normal 6.4-8.9 [facility] Comment on above: Performed By: #### H EPATIC, ESR, CREAT, CBC #### [address] Serum globulin measurement b y calculation (mass/volume)Ordered By: Zhou Fischer on 03-16-2024 Globulin (S) [Mass/Vol] 2.1 g/dL Normal [facility] Comment on above: Performed By: #### H EPATIC, ESR, CREAT, CBC #### [facility] [address] Serum or plasma albumin/glob ulin mass ratioOrdered By: Zhou Fischer on 03-16-2024 Albumin/Globulin [Mass ratio] 2.0 {ratio} Normal [facility] Comment on above: Performed By: #### H EPATIC, ESR, CREAT, CBC #### [facility] [address] Serum or plasma non-glucuron idated bilirubin measurement (mass/volume)Ordered By: Zhou Fischer on 03-16-2024 Bilirubin.indirect [Mass/Vol] 0.6 mg/dL [facility] Alanine aminotransferase [En zymatic activity/volume] in Serum or PlasmaOrdered By: Zhou Fischer on 12-28-2023 ALT [Catalytic activity/Vol] 24 U/L Normal 7-52 [facility] Comment on above: Performed By: #### E SR, CBC, CREAT, HEPATIC #### [address] Albumin [Mass/volume] in Ser um or Plasma by Bromocresol green (BCG) dye binding methoOrdered By: Zhou Fischer on 12-28-2023 Albumin BCG dye [Mass/Vol] 4.4 g/dL 3.5-5.7 [facility] Alkaline phosphatase [Enzyma tic activity/volume] in Serum or PlasmaOrdered By: Zhou Fischer on 12-28-2023 ALP [Catalytic activity/Vol] 69 U/L Normal 34-104 [facility] Comment on above: Performed By: #### E SR, CBC, CREAT, HEPATIC #### [facility] [address] [place] [address] Aspartate aminotransferase [ Enzymatic activity/volume] in Serum or PlasmaOrdered By: Zhou Fischer on 12-28-2023 AST [Catalytic activity/Vol] 24 U/L Normal 13-39 [facility] Comment on above: Performed By: #### E SR, CBC, CREAT, HEPATIC #### [facility] [address] Automated basophil %Ordered By: Zhou Fischer on 12-28-2023 Basophils/100 WBC (Bld) 0.9 % Normal . [facility] Comment on above: Performed By: #### E SR, CBC, CREAT, HEPATIC #### [address] Automated basophil countOrde red By: Zhou Fischer on 12-28-2023 Basophils (Bld) [#/Vol] 0.0 10*3/uL Normal 0.0-0.2 [facility] Comment on above: Performed By: #### E SR, CBC, CREAT, HEPATIC #### [address] Automated blood monocyte cou ntOrdered By: Zhou Fischer on 12-28-2023 Monocytes (Bld) [#/Vol] 0.4 10*3/uL Normal 0.0-0.8 [facility] Comment on above: Performed By: #### E SR, CBC, CREAT, HEPATIC #### [address] Automated eosinophil %Ordere d By: Zhou Fischer on 12-28-2023 Eosinophils/100 WBC (Bld) 3.5 % Normal . [facility] Comment on above: Performed By: #### E SR, CBC, CREAT, HEPATIC #### [address] Automated eosinophil countOr dered By: Zhou Fischer on 12-28-2023 Eosinophils (Bld) [#/Vol] 0.2 10*3/uL Normal 0.0-0.45 [facility] Comment on above: Performed By: #### E SR, CBC, CREAT, HEPATIC #### [address] Automated monocyte %Ordered By: Zhou Fischer on 12-28-2023 Monocytes/100 WBC (Bld) 9.6 % Normal . [facility] Comment on above: Performed By: #### E SR, CBC, CREAT, HEPATIC #### [facility] [address] [place] [address] Automated neutrophil %Ordere d By: Zhou Fischer on 12-28-2023 Neutrophils/100 WBC (Bld) 50.7 % Normal . [facility] Comment on above: Performed By: #### E SR, CBC, CREAT, HEPATIC #### [facility] [address] [place] [address] Bilirubin.direct [Mass/volum e] in Serum or PlasmaOrdered By: Zhou Fischer on 12-28-2023 Bilirubin.direct [Mass/Vol] 0.10 mg/dL 0.03-0.18 [facility] Bilirubin.total [Mass/volume ] in Serum or PlasmaOrdered By: Zhou Fischer on 12-28-2023 Bilirubin [Mass/Vol] 0.7 mg/dL Normal 0.3-1.0 [facility] Comment on above: Performed By: #### E SR, CBC, CREAT, HEPATIC #### [facility] [address] [place] [address] Complete Blood Count Auto Di ffon 12-28-2023 Mean Corpuscular HGB Conc 34.7 g/dL Normal 32.5-35.6 [facility] Comment on above: Performed By: #### E SR, CBC, CREAT, HEPATIC #### [address] NRBC% 0.1 /100{WBC} Normal 0-0.5 [facility] Comment on above: Performed By: #### E SR, CBC, CREAT, HEPATIC #### [facility] [address] [place] [address] Creatinineon 12-28-2023 GFR/1.73 sq M.predicted MDRD (S/P/Bld) [Vol rate/Area] mL/min/{1.73_m2} Normal [facility] Comment on above: Result Comment: PERF ORMED BY: [place] [address] PATHOLOGIST [employer] JIANLAN SUN M.D. Performed By: #### E SR, CBC, CREAT, HEPATIC #### [address] Creatinine [Mass/volume] in Serum or PlasmaOrdered By: Zhou Fischer on 12-28-2023 Creatinine [Mass/Vol] 0.84 mg/dL Normal 0.70-1.30 [facility] Comment on above: Performed By: #### E SR, CBC, CREAT, HEPATIC #### [address] Erythrocyte Sedimentation Ra pennie 12-28-2023 ESR (Bld) [Velocity] 5 mm/h Normal 0-19 [facility] Comment on above: Result Comment: PERF ORMED BY: [place] [address] PATHOLOGIST [employer] LIZANDRO HOFF M.D. Performed By: #### E SR, CBC, CREAT, HEPATIC #### [address] Erythrocyte distribution wid th [Ratio] by Automated countOrdered By: Zhou Fischer on 12-28-2023 Erythrocyte distribution width (RBC) [Ratio] 13.8 % Normal 12.0-14.8 [facility] Comment on above: Performed By: #### E SR, CBC, CREAT, HEPATIC #### [address] Erythrocyte sedimentation ra te by Photometric methodOrdered By: Zhou Fischer on 12-28-2023 ESR Photometric method (Bld) [Velocity] 5 mm/hr 0-19 [facility] Erythrocytes [#/volume] in B lood by Automated countOrdered By: Zhou Fischer on 12-28-2023 RBC (Bld) [#/Vol] 4.47 10*6/uL Normal 3.90-5.60 [facility] Comment on above: Performed By: #### E SR, CBC, CREAT, HEPATIC #### [address] Hematocrit [Volume Fraction] of Blood by Automated countOrdered By: Zhou Fischer on 12-28-2023 Hematocrit (Bld) [Volume fraction] 41.4 % Normal 38.8-50.0 [facility] Comment on above: Performed By: #### E SR, CBC, CREAT, HEPATIC #### [facility] [address] Hemoglobin [Mass/volume] in BloodOrdered By: Zhou Fischer on 12-28-2023 Hemoglobin (Bld) [Mass/Vol] 14.4 g/dL Normal 13.0-17.0 [facility] Comment on above: Performed By: #### E SR, CBC, CREAT, HEPATIC #### [facility] [address] [place] [address] Hepatic Panelon 12-28-2023 Albumin [Mass/Vol] 4.4 g/dL Normal 3.5-5.7 [facility] Comment on above: Performed By: #### E SR, CBC, CREAT, HEPATIC #### [address] Bilirubin,Indirect 0.6 mg/dL Normal [facility] Comment on above: Performed By: #### E SR, CBC, CREAT, HEPATIC #### [address] Bilirubin.indirect [Mass/Vol] 0.10 mg/dL Normal 0.03-0.18 [facility] Comment on above: Performed By: #### E SR, CBC, CREAT, HEPATIC #### [address] Leukocytes [#/volume] correc basim for nucleated erythrocytes in Blood by Automated counOrdered By: Zhou Fischer on 12-28-2023 WBC corrected for nucl RBC Auto (Bld) [#/Vol] 4.4 10*3/uL 4.1-10.5 [facility] Leukocytes [#/volume] in Blo od by Automated countOrdered By: Zhou Fischer on 12-28-2023 WBC (Bld) [#/Vol] 4.4 10*3/uL Normal 4.1-10.5 [facility] Comment on above: Performed By: #### E SR, CBC, CREAT, HEPATIC #### [facility] [address] [place] [address] Lymphocytes [#/volume] in Bl ood by Automated countOrdered By: Zhou Fischer on 12-28-2023 Lymphocytes (Bld) [#/Vol] 1.6 10*3/uL Normal 1.00-4.8 [facility] Comment on above: Performed By: #### E SR, CBC, CREAT, HEPATIC #### [address] Lymphocytes/100 leukocytes i n Blood by Automated countOrdered By: Zhou Fischer on 12-28-2023 Lymphocytes/100 WBC (Bld) 35.3 % Normal . [facility] Comment on above: Performed By: #### E SR, CBC, CREAT, HEPATIC #### [address] MCH [Entitic mass] by Automa basim countOrdered By: Zhou Fischer on 12-28-2023 MCH (RBC) [Entitic mass] 32.1 pg Normal 27.5-35.2 [facility] Comment on above: Performed By: #### E SR, CBC, CREAT, HEPATIC #### [address] MCHC Auto (RBC) [Mass/Vol]Or dered By: Zhou Fischer on 12-28-2023 MCHC (RBC) [Mass/Vol] 34.7 g/dL 32.5-35.6 [facility] MCV [Entitic volume] by Auto mated countOrdered By: Zhou Fischer on 12-28-2023 MCV (RBC) [Entitic vol] 92.6 fL Normal 83.5-101 F [facility] Comment on above: Performed By: #### E SR, CBC, CREAT, HEPATIC #### [address] Neutrophils [#/volume] in Bl ood by Automated countOrdered By: Zhou Fischer on 12-28-2023 Neutrophils (Bld) [#/Vol] 2.2 10*3/uL Normal 1.8-7.7 [facility] Comment on above: Performed By: #### E SR, CBC, CREAT, HEPATIC #### [facility] [address] [place] [address] No Panel InformationOrdered By: Zhou Fischer on 12-28-2023 Estimated GFR (CKD-EPI) > 60.0 mL/Min [facility] Creatinine Clearance (Chem N/A [facility] Nucleated erythrocytes [Pres ence] in Blood by Automated countOrdered By: Zhou Fischer on 12-28-2023 Nucleated RBC Auto Ql (Bld) 0.1 /100{WBC} 0-0.5 [facility] Platelet mean volume [Entiti c volume] in Blood by Automated countOrdered By: Zhou Fischer on 12-28-2023 Platelet mean volume (Bld) [Entitic vol] 8.2 fL Normal 6.6-10.1 [facility] Comment on above: Performed By: #### E SR, CBC, CREAT, HEPATIC #### [facility] [address] [place] [address] Platelets [#/volume] in Bloo d by Automated countOrdered By: Zhou Fischer on 12-28-2023 Platelets (Bld) [#/Vol] 309 10*3/uL Normal 150-450 [facility] Comment on above: Performed By: #### E SR, CBC, CREAT, HEPATIC #### [facility] [address] [place] [address] Protein [Mass/volume] in Ser um or PlasmaOrdered By: Zhou Fischer on 12-28-2023 Protein [Mass/Vol] 6.8 g/dL Normal 6.4-8.9 [facility] Comment on above: Performed By: #### E SR, CBC, CREAT, HEPATIC #### [address] Serum globulin measurement b y calculation (mass/volume)Ordered By: Zhou Fischer on 12-28-2023 Globulin (S) [Mass/Vol] 2.4 g/dL Normal [facility] Comment on above: Performed By: #### E SR, CBC, CREAT, HEPATIC #### [facility] [address] Serum or plasma albumin/glob ulin mass ratioOrdered By: Zhou Fischer on 12-28-2023 Albumin/Globulin [Mass ratio] 1.8 {ratio} Normal [facility] Comment on above: Performed By: #### E SR, CBC, CREAT, HEPATIC #### [facility] [address] Serum or plasma non-glucuron idated bilirubin measurement (mass/volume)Ordered By: Zhou Fischer on 12-28-2023 Bilirubin.indirect [Mass/Vol] 0.6 mg/dL [facility] CNOVon 12-01-2023 CNOV Office Visit (UROSMN) ---- TIMUR FRANCISCO ([id number]) 1950 M Date Time Provider Department 12/01/23 2:30 PM NANCI CARVAJAL During your visit today, we recorded the following information about you: Anni Johnston LPN 12/01/2023 2:54 PM Signed Actual procedure/procedure scheduled: Yes Performing provider/scheduled provider: Yes Patient was roomed in: Q9- 09 Instrument Repair Specialist offered:Patient declines Patient arrived in the room [...] Education Session: None Instruction Provided To: Patient Eligibility Services Representative Present: not applicable Discipline: Nursing Learning Topic: [...] 12 months MD Preston Bonilla Carissa R, MEAT DEPARTMENT MANAGER 12/01/2023 2:55 PM Signed UNIVERSAL PROTOCOL / [...] No r (more content not included)... Normal [facility] CYTOLOGY NON-GYNon CASE REPORT Normal [facility] Comment on above: Order Comment: Speci men Type: URINE SPECIMEN Ordering Facility: [facility] Address: [address] [place] [address] Result Comment: [facility] Cytology Report Case: [id number] Authorizing Provider: Nanci Carvajal MD Collected: 12/01/2023 02:53 PM Ordering Location: Urology Received: 12/01/2023 06:21 PM Pathologist: Dilshad Lombardo MD Specimen: Urine, Midstream Performed By: #### C YTBRANDO #### [facility] CLIA [id number] [address] [place], [place] [address] [address] [place] CLINICAL HISTORY hx of bladder cancer Normal [facility] Comment on above: Order Comment: Speci men Type: URINE SPECIMEN Ordering Facility: [facility] Address: [address] [place] [address] Performed By: #### C YTONON #### [facility] CLIA [id number] [address] [place] [address] [place] FINAL DIAGNOSIS Normal [facility] Comment on above: Order Comment: Speci men Type: URINE SPECIMEN Ordering Facility: [facility] Address: [address] [place] [address] Result Comment: A - Urine, Voided: Suspicious for high-grade urothelial carcinoma. Performed By: #### C YTONON #### [facility] CLIA [id number] [address] [place] [address] STATES OF [facility] FINAL PERFORMING LAB Normal [facility] Comment on above: Order Comment: Speci men Type: URINE SPECIMEN Ordering Facility: [facility] Address: [address] [place] [address] Result Comment: Tech nical component, anesthetic assistant screening performed at [facility], [address] [place], [place] [id number] CLIA# [id number] Diagnostic interpretation performed at [facility], [address] [place] [address] CLIA# [id number] Service Girl: Reid Monteiro M.D. Performed By: #### C YTONON #### [facility] CLIA [id number] [address] [place] [address] [place] GROSS DESCRIPTION Normal [facility] Comment on above: Order Comment: Speci men Type: URINE SPECIMEN Ordering Facility: [facility] Address: [address] [place] [address] Result Comment: A. U rine, Midstream 80 cc clear yellow fluid . ThinPrep prepared. Performed By: #### C YTONON #### [facility] CLIA [id number] [address] [place] [address] [place] UA DIP, URINE (POC)on 2023 BILIRUBIN UA (POCT) Negative Negative [facility] CLARITY UA (POCT) Clear [facility] COLOR UA (POCT) Yellow [facility] GLUCOSE UA (POCT) Negative Negative mg/dL [facility] Hemoglobin Ql (U) Negative Negative [facility] KETONE UA (POCT) Negative Negative mg/dL [facility] LEUKOCYTES UA (POCT) Negative Negative [facility] NITRITE UA (POCT) Negative Negative [facility] PH UA (POCT) 7.0 4.5 - 8.0 [facility] Protein Ql (U) Negative Negative mg/dL [facility] SPECIFIC GRAVITY UA (POCT) 1.015 1.005 - 1.030 [facility] UROBILINOGEN UA (POCT) 0.2 T[place] l E.U./dL [facility] Location:[facility], [address] [place] [address], [address] [place] [address] [facility] Alanine aminotransferase [En zymatic activity/volume] in Serum or PlasmaOrdered By: Zhou Fischer on 10-29-2023 ALT [Catalytic activity/Vol] 20 U/L Normal 7-52 [facility] Comment on above: Performed By: #### C REAT, ESR, HEPATIC, CBC #### [facility] [address] [place] [address] [place] Albumin [Mass/volume] in Ser um or Plasma by Bromocresol green (BCG) dye binding methoOrdered By: Zhou Fischer on 10-29-2023 Albumin BCG dye [Mass/Vol] 4.5 g/dL 3.5-5.7 [facility] Alkaline phosphatase [Enzyma tic activity/volume] in Serum or PlasmaOrdered By: Zhou Fischer on 10-29-2023 ALP [Catalytic activity/Vol] 75 U/L Normal 34-104 [facility] Comment on above: Performed By: #### C REAT, ESR, HEPATIC, CBC #### [facility] [address] [place] [address] [place] Aspartate aminotransferase [ Enzymatic activity/volume] in Serum or PlasmaOrdered By: Zhou Fischer on 10-29-2023 AST [Catalytic activity/Vol] 25 U/L Normal 13-39 [facility] Comment on above: Performed By: #### C REAT, ESR, HEPATIC, CBC #### [address] Automated basophil %Ordered By: Zhou Fischer on 10-29-2023 Basophils/100 WBC (Bld) 1.0 % Normal . [facility] Comment on above: Performed By: #### C REAT, ESR, HEPATIC, CBC #### [address] Automated basophil countOrde red By: Zhou Fischer on 10-29-2023 Basophils (Bld) [#/Vol] 0.0 10*3/uL Normal 0.0-0.2 [facility] Comment on above: Performed By: #### C REAT, ESR, HEPATIC, CBC #### [address] Automated blood monocyte cou ntOrdered By: Zhou Fischer on 10-29-2023 Monocytes (Bld) [#/Vol] 0.6 10*3/uL Normal 0.0-0.8 [facility] Comment on above: Performed By: #### C REAT, ESR, HEPATIC, CBC #### [address] Automated eosinophil %Ordere d By: Zhou Fischer on 10-29-2023 Eosinophils/100 WBC (Bld) 2.4 % Normal . [facility] Comment on above: Performed By: #### C REAT, ESR, HEPATIC, CBC #### [address] Automated eosinophil countOr dered By: Zhou Fischer on 10-29-2023 Eosinophils (Bld) [#/Vol] 0.1 10*3/uL Normal 0.0-0.45 [facility] Comment on above: Performed By: #### C REAT, ESR, HEPATIC, CBC #### [address] Automated monocyte %Ordered By: Zhou Fischer on 10-29-2023 Monocytes/100 WBC (Bld) 11.4 % Normal . [facility] Comment on above: Performed By: #### C REAT, ESR, HEPATIC, CBC #### [address] Automated neutrophil %Ordere d By: Zhou Fischer on 10-29-2023 Neutrophils/100 WBC (Bld) 51.7 % Normal . [facility] Comment on above: Performed By: #### C REAT, ESR, HEPATIC, CBC #### [address] Bilirubin.direct [Mass/volum e] in Serum or PlasmaOrdered By: Zhou Fischer on 10-29-2023 Bilirubin.direct [Mass/Vol] 0.10 mg/dL 0.03-0.18 [facility] Bilirubin.total [Mass/volume ] in Serum or PlasmaOrdered By: Zhou Fischer on 10-29-2023 Bilirubin [Mass/Vol] 0.7 mg/dL Normal 0.3-1.0 [facility] [place] Comment on above: Performed By: #### C REAT, ESR, HEPATIC, CBC #### [address] Complete Blood Count Auto Di ffon 10-29-2023 Mean Corpuscular HGB Conc 34.5 g/dL Normal 32.5-35.6 [facility] Comment on above: Performed By: #### C REAT, ESR, HEPATIC, CBC #### [address] NRBC% 0.2 /100{WBC} Normal 0-0.5 [facility] Comment on above: Performed By: #### C REAT, ESR, HEPATIC, CBC #### [address] Creatinineon 10-29-2023 GFR/1.73 sq M.predicted MDRD (S/P/Bld) [Vol rate/Area] mL/min/{1.73_m2} Normal [facility] Comment on above: Result Comment: PERF ORMED BY: [address] [place] [address] PATHOLOGIST [employer] LIZANDRO HOFF M.D. Performed By: #### C REAT, ESR, HEPATIC, CBC #### [address] Creatinine [Mass/volume] in Serum or PlasmaOrdered By: Zhou Fischer on 10-29-2023 Creatinine [Mass/Vol] 0.83 mg/dL Normal 0.70-1.30 [facility] Comment on above: Performed By: #### C REAT, ESR, HEPATIC, CBC #### [address] Erythrocyte Sedimentation Ra pennie 10-29-2023 ESR (Bld) [Velocity] 3 mm/h Normal 0-19 [facility] Comment on above: Result Comment: PERF ORMED BY: [place] [address] PATHOLOGIST [employer] LIZANDRO HOFF M.D. Performed By: #### C REAT, ESR, HEPATIC, CBC #### [address] Erythrocyte distribution wid th [Ratio] by Automated countOrdered By: Zhou Fischer on 10-29-2023 Erythrocyte distribution width (RBC) [Ratio] 14.2 % Normal 12.0-14.8 [facility] Comment on above: Performed By: #### C REAT, ESR, HEPATIC, CBC #### [address] Erythrocyte sedimentation ra te by Photometric methodOrdered By: Zhou Fischer on 10-29-2023 ESR Photometric method (Bld) [Velocity] 3 mm/hr 0-19 [facility] Erythrocytes [#/volume] in B lood by Automated countOrdered By: Zhou Fischer on 10-29-2023 RBC (Bld) [#/Vol] 4.43 10*6/uL Normal 3.90-5.60 [facility] Comment on above: Performed By: #### C REAT, ESR, HEPATIC, CBC #### [address] Hematocrit [Volume Fraction] of Blood by Automated countOrdered By: Zhou Fischer on 10-29-2023 Hematocrit (Bld) [Volume fraction] 40.8 % Normal 38.8-50.0 [facility] Comment on above: Performed By: #### C REAT, ESR, HEPATIC, CBC #### [facility] [address] Hemoglobin [Mass/volume] in BloodOrdered By: Zhou Fischer on 10-29-2023 Hemoglobin (Bld) [Mass/Vol] 14.1 g/dL Normal 13.0-17.0 [facility] Comment on above: Performed By: #### C REAT, ESR, HEPATIC, CBC #### [address] Hepatic Panelon 10-29-2023 Albumin [Mass/Vol] 4.5 g/dL Normal 3.5-5.7 [facility] Comment on above: Performed By: #### C REAT, ESR, HEPATIC, CBC #### [address] Bilirubin,Indirect 0.6 mg/dL Normal [facility] Comment on above: Performed By: #### C REAT, ESR, HEPATIC, CBC #### [address] Bilirubin.indirect [Mass/Vol] 0.10 mg/dL Normal 0.03-0.18 [facility] Comment on above: Performed By: #### C REAT, ESR, HEPATIC, CBC #### [address] Leukocytes [#/volume] correc basim for nucleated erythrocytes in Blood by Automated counOrdered By: Zhou Fischer on 10-29-2023 WBC corrected for nucl RBC Auto (Bld) [#/Vol] 4.9 10*3/uL 4.1-10.5 [facility] Leukocytes [#/volume] in Blo od by Automated countOrdered By: Zhou Fischer on 10-29-2023 WBC (Bld) [#/Vol] 4.9 10*3/uL Normal 4.1-10.5 [facility] Comment on above: Performed By: #### C REAT, ESR, HEPATIC, CBC #### [facility] [address] Lymphocytes [#/volume] in Bl ood by Automated countOrdered By: Zhou Fischer on 10-29-2023 Lymphocytes (Bld) [#/Vol] 1.6 10*3/uL Normal 1.00-4.8 [facility] Comment on above: Performed By: #### C REAT, ESR, HEPATIC, CBC #### [address] Lymphocytes/100 leukocytes i n Blood by Automated countOrdered By: Zhou Fischer on 10-29-2023 Lymphocytes/100 WBC (Bld) 33.5 % Normal . [facility] Comment on above: Performed By: #### C REAT, ESR, HEPATIC, CBC #### [address] MCH [Entitic mass] by [place] basim countOrdered By: Zhou Fischer on 10-29-2023 MCH (RBC) [Entitic mass] 31.8 pg Normal 27.5-35.2 [facility] Comment on above: Performed By: #### C REAT, ESR, HEPATIC, CBC #### [address] MCHC Auto (RBC) [Mass/Vol]Or dered By: Zhou Fischer on 10-29-2023 MCHC (RBC) [Mass/Vol] 34.5 g/dL 32.5-35.6 [facility] MCV [Entitic volume] by Auto mated countOrdered By: Zhou Fischer on 10-29-2023 MCV (RBC) [Entitic vol] 92.1 fL Normal 83.5-101 [facility] Comment on above: Performed By: #### C REAT, ESR, HEPATIC, CBC #### [address] Neutrophils [#/volume] in Bl ood by Automated countOrdered By: Zhou Fischer on 10-29-2023 Neutrophils (Bld) [#/Vol] 2.5 10*3/uL Normal 1.8-7.7 [facility] Comment on above: Performed By: #### C REAT, ESR, HEPATIC, CBC #### [address] No Panel InformationOrdered By: Zhou Fischer on 10-29-2023 Estimated GFR (CKD-EPI) > 60.0 mL/Min [facility] Creatinine Clearance (Chem N/A [facility] Nucleated erythrocytes [Pres ence] in Blood by Automated countOrdered By: Zhou Fischer on 10-29-2023 Nucleated RBC Auto Ql (Bld) 0.2 /100{WBC} 0-0.5 [facility] Platelet mean volume [Entiti c volume] in Blood by Automated countOrdered By: Zhou Fischer on 10-29-2023 Platelet mean volume (Bld) [Entitic vol] 8.3 fL Normal 6.6-10.1 [facility] Comment on above: Performed By: #### C REAT, ESR, HEPATIC, CBC #### [address] Platelets [#/volume] in Bloo d by Automated countOrdered By: Zhou Fischer on 10-29-2023 Platelets (Bld) [#/Vol] 324 10*3/uL Normal 150-450 [facility] Comment on above: Performed By: #### C REAT, ESR, HEPATIC, CBC #### [address] Protein [Mass/volume] in Ser um or PlasmaOrdered By: Zhou Fischer on 10-29-2023 Protein [Mass/Vol] 6.6 g/dL Normal 6.4-8.9 [facility] Comment on above: Performed By: #### C REAT, ESR, HEPATIC, CBC #### [address] Serum globulin measurement b y calculation (mass/volume)Ordered By: Zhou Fischer on 10-29-2023 Globulin (S) [Mass/Vol] 2.1 g/dL Normal [facility] Comment on above: Performed By: #### C REAT, ESR, HEPATIC, CBC #### [facility] [address] Serum or plasma albumin/glob ulin mass ratioOrdered By: Zhou Fischer on 10-29-2023 Albumin/Globulin [Mass ratio] 2.1 {ratio} Normal [facility] Comment on above: Performed By: #### C REAT, ESR, HEPATIC, CBC #### [facility] [address] Serum or plasma non-glucuron idated bilirubin measurement (mass/volume)Ordered By: Zhou Fischer on 10-29-2023 Bilirubin.indirect [Mass/Vol] 0.6 mg/dL [facility] ECG 12 Leadon 10-20-2023 Atrial Rate [facility] [place] [facility] P-R Interval [facility] Q-T Interval [facility] Q-T Interval (corrected) [facility] QRS Duration [facility] QTC Calculation (Bezet) [facility] [place] [facility] T [place] [facility] Ventricular Rate [facility] Alanine aminotransferase [En zymatic activity/volume] in Serum or PlasmaOrdered By: Zhou Fischer on 07-21-2023 ALT [Catalytic activity/Vol] 26 U/L 7-52 [facility] Albumin [Mass/volume] in Ser um or Plasma by Bromocresol green (BCG) dye binding methoOrdered By: Zhou Fischer on 07-21-2023 Albumin BCG dye [Mass/Vol] 4.4 g/dL 3.5-5.7 [facility] Alkaline phosphatase [Enzyma tic activity/volume] in Serum or PlasmaOrdered By: Zhou Fischer on 07-21-2023 ALP [Catalytic activity/Vol] 69 U/L 34-104 [facility] Aspartate aminotransferase [ Enzymatic activity/volume] in Serum or PlasmaOrdered By: Zhou Fischer on 07-21-2023 AST [Catalytic activity/Vol] 23 U/L 13-39 [facility] Basophils Auto (Bld) [#/Vol] Ordered By: Zhou Fischer on 07-21-2023 Basophils (Bld) [#/Vol] 0.0 10*3/uL 0.0-0.2 [facility] Basophils/100 WBC Auto (Bld) Ordered By: Zhou Fischer on 07-21-2023 Basophils/100 WBC (Bld) 0.7 % . [facility] Bilirubin.direct [Mass/volum e] in Serum or PlasmaOrdered By: Zhou Fischer on 07-21-2023 Bilirubin.direct [Mass/Vol] 0.10 mg/dL 0.03-0.18 [facility] Bilirubin.total [Mass/volume ] in Serum or PlasmaOrdered By: Zhou Fischer on 07-21-2023 Bilirubin [Mass/Vol] 0.5 mg/dL 0.3-1.0 [facility] Creatinine [Mass/volume] in Serum or PlasmaOrdered By: Zhou Fischer on 07-21-2023 Creatinine [Mass/Vol] 0.94 mg/dL 0.70-1.30 [facility] Eosinophils Auto (Bld) [#/Vo l]Ordered By: Zhou Fischer on 07-21-2023 Eosinophils (Bld) [#/Vol] 0.1 10*3/uL 0.0-0.45 [facility] Eosinophils/100 WBC Auto (Bl d)Ordered By: Zhou Fischer on 07-21-2023 Eosinophils/100 WBC (Bld) 1.9 % . [facility] Erythrocyte distribution wid th Auto (RBC) [Ratio]Ordered By: Zhou Fischer on 07-21-2023 Erythrocyte distribution width (RBC) [Ratio] 13.7 % 12.0-14.8 [facility] Erythrocyte sedimentation ra te by Photometric methodOrdered By: Zhou Fischer on 07-21-2023 ESR Photometric method (Bld) [Velocity] 2 mm/hr 0-19 [facility] Globulin Calc (S) [Mass/Vol] Ordered By: Zhou Fischer on 07-21-2023 Globulin (S) [Mass/Vol] 2.3 g/dL [facility] Hematocrit Auto (Bld) [Volum e fraction]Ordered By: Zhou Fischer on 07-21-2023 Hematocrit (Bld) [Volume fraction] 40.1 % 38.8-50.0 [facility] Hemoglobin [Mass/volume] in BloodOrdered By: Zhou Fischer on 07-21-2023 Hemoglobin (Bld) [Mass/Vol] 14.0 g/dL 13.0-17.0 [facility] Leukocytes [#/volume] correc basim for nucleated erythrocytes in Blood by Automated counOrdered By: Zhou Fischer on 07-21-2023 WBC corrected for nucl RBC Auto (Bld) [#/Vol] 5.5 10*3/uL 4.1-10.5 [facility] Lymphocytes Auto (Bld) [#/Vo l]Ordered By: Zhou Fischer on 07-21-2023 Lymphocytes (Bld) [#/Vol] 1.5 10*3/uL 1.00-4.8 [facility] Lymphocytes/100 WBC Auto (Bl d)Ordered By: Zhou Fischer on 07-21-2023 Lymphocytes/100 WBC (Bld) 26.4 % . [facility] MCH Auto (RBC) [Entitic mass ]Ordered By: Zhou Fischer on 07-21-2023 MCH (RBC) [Entitic mass] 31.8 pg 27.5-35.2 [facility] MCHC Auto (RBC) [Mass/Vol]Or dered By: Zhou Fischer on 07-21-2023 MCHC (RBC) [Mass/Vol] 34.8 g/dL 32.5-35.6 [facility] MCV Auto (RBC) [Entitic vol] Ordered By: Zhou Fischer on 07-21-2023 MCV (RBC) [Entitic vol] 91.4 fL 83.5-101 [facility] Monocytes Auto (Bld) [#/Vol] Ordered By: Zhou Fischer on 07-21-2023 Monocytes (Bld) [#/Vol] 0.4 10*3/uL 0.0-0.8 [facility] Monocytes/100 WBC Auto (Bld) Ordered By: Zhou Fischer on 07-21-2023 Monocytes/100 WBC (Bld) 7.5 % . [facility] Neutrophils Auto (Bld) [#/Vo l]Ordered By: Zhou Fischer on 07-21-2023 Neutrophils (Bld) [#/Vol] 3.5 10*3/uL 1.8-7.7 [facility] Neutrophils/100 WBC Auto (Bl d)Ordered By: Zhou Fischer on 07-21-2023 Neutrophils/100 WBC (Bld) 63.5 % . [facility] No Panel InformationOrdered By: Zhou Fischer on 07-21-2023 Estimated GFR (CKD-EPI) > 60.0 mL/Min [facility] Creatinine Clearance (Chem N/A [facility] Nucleated erythrocytes [Pres ence] in Blood by Automated countOrdered By: Zhou Fischer on 07-21-2023 Nucleated RBC Auto Ql (Bld) 0.2 /100{WBC} 0-0.5 [facility] Platelet mean volume Auto (B ld) [Entitic vol]Ordered By: Zhou Fischer on 07-21-2023 Platelet mean volume (Bld) [Entitic vol] 8.3 fL 6.6-10.1 [facility] Platelets Auto (Bld) [#/Vol] Ordered By: Zhou Fischer on 07-21-2023 Platelets (Bld) [#/Vol] 312 10*3/uL 150-450 [facility] Protein [Mass/volume] in Ser um or PlasmaOrdered By: Zhou Fischer on 07-21-2023 Protein [Mass/Vol] 6.7 g/dL 6.4-8.9 [facility] RBC Auto (Bld) [#/Vol]Ordere d By: Zhou Fischer on 07-21-2023 RBC (Bld) [#/Vol] 4.39 10*6/uL 3.90-5.60 [facility] Serum or plasma albumin/glob ulin mass ratioOrdered By: Zhou Fischer on 07-21-2023 Albumin/Globulin [Mass ratio] 1.9 {ratio} [facility] Serum or plasma non-glucuron idated bilirubin measurement (mass/volume)Ordered By: Zhou Fischer on 07-21-2023 Bilirubin.indirect [Mass/Vol] 0.4 mg/dL [facility] WBC Auto (Bld) [#/Vol]Ordere d By: Zhou Fischer on 07-21-2023 WBC (Bld) [#/Vol] 5.5 10*3/uL 4.1-10.5 [facility] CREATININE, BLOOD (POC)on Creatinine [Mass/Vol] 0.80 mg/dL 0.7 - 1.4 mg/dL [facility] eGFR (POCT) [facility] CT UROGRAM WO/W IVCONon 12-0 [facility] Alanine aminotransferase [En zymatic activity/volume] in Serum or PlasmaOrdered By: Zhou Fischer on 05-25-2023 ALT [Catalytic activity/Vol] 36 U/L 7-52 [facility] Albumin [Mass/volume] in Ser um or Plasma by Bromocresol green (BCG) dye binding methoOrdered By: Zhou Fischer on 05-25-2023 Albumin BCG dye [Mass/Vol] 4.5 g/dL 3.5-5.7 [facility] Alkaline phosphatase [Enzyma tic activity/volume] in Serum or PlasmaOrdered By: Zhou Fischer on 05-25-2023 ALP [Catalytic activity/Vol] 66 U/L 34-104 [facility] Aspartate aminotransferase [ Enzymatic activity/volume] in Serum or PlasmaOrdered By: Zhou Fischer on 05-25-2023 AST [Catalytic activity/Vol] 25 U/L 13-39 [facility] Basophils Auto (Bld) [#/Vol] Ordered By: Zhou Fischer on 05-25-2023 Basophils (Bld) [#/Vol] 0.0 10*3/uL 0.0-0.2 [facility] Basophils/100 WBC Auto (Bld) Ordered By: Zhou Fischer on 05-25-2023 Basophils/100 WBC (Bld) 0.7 % . [facility] Bilirubin.direct [Mass/volum e] in Serum or PlasmaOrdered By: Zhou Fischer on 05-25-2023 Bilirubin.direct [Mass/Vol] 0.10 mg/dL 0.03-0.18 [facility] Bilirubin.total [Mass/volume ] in Serum or PlasmaOrdered By: Zhou Fischer on 05-25-2023 Bilirubin [Mass/Vol] 0.5 mg/dL 0.3-1.0 [facility] Creatinine [Mass/volume] in Serum or PlasmaOrdered By: Zhou Fischer on 05-25-2023 Creatinine [Mass/Vol] 0.91 mg/dL 0.70-1.30 [facility] Eosinophils Auto (Bld) [#/Vo l]Ordered By: Zhou Fischer on 05-25-2023 Eosinophils (Bld) [#/Vol] 0.1 10*3/uL 0.0-0.45 [facility] Eosinophils/100 WBC Auto (Bl d)Ordered By: Zhou Fischer on 05-25-2023 Eosinophils/100 WBC (Bld) 2.4 % . [facility] Erythrocyte distribution wid th Auto (RBC) [Ratio]Ordered By: Zhou Fischer on 05-25-2023 Erythrocyte distribution width (RBC) [Ratio] 13.8 % 12.0-14.8 [facility] Erythrocyte sedimentation ra te by Photometric methodOrdered By: Zhou Fischer on 05-25-2023 ESR Photometric method (Bld) [Velocity] 2 mm/hr 0-19 [facility] Globulin Calc (S) [Mass/Vol] Ordered By: Zhou Fischer on 05-25-2023 Globulin (S) [Mass/Vol] 2.2 g/dL [facility] Hematocrit Auto (Bld) [Volum e fraction]Ordered By: Zhou Fischer on 05-25-2023 Hematocrit (Bld) [Volume fraction] 41.8 % 38.8-50.0 [facility] Hemoglobin [Mass/volume] in BloodOrdered By: Zhou Fischer on 05-25-2023 Hemoglobin (Bld) [Mass/Vol] 14.3 g/dL 13.0-17.0 [facility] Leukocytes [#/volume] correc basim for nucleated erythrocytes in Blood by Automated counOrdered By: Zhou Fischer on 05-25-2023 WBC corrected for nucl RBC Auto (Bld) [#/Vol] 5.2 10*3/uL 4.1-10.5 [facility] Lymphocytes Auto (Bld) [#/Vo l]Ordered By: Zhou Fischer on 05-25-2023 Lymphocytes (Bld) [#/Vol] 1.5 10*3/uL 1.00-4.8 [facility] Lymphocytes/100 WBC Auto (Bl d)Ordered By: Zhou Fischer on 05-25-2023 Lymphocytes/100 WBC (Bld) 27.8 % . [facility] MCH Auto (RBC) [Entitic mass ]Ordered By: Zhou Fischer on 05-25-2023 MCH (RBC) [Entitic mass] 31.5 pg 27.5-35.2 [facility] MCHC Auto (RBC) [Mass/Vol]Or dered By: Zhou Fischer on 05-25-2023 MCHC (RBC) [Mass/Vol] 34.1 g/dL 32.5-35.6 [facility] MCV Auto (RBC) [Entitic vol] Ordered By: Zhou Fischer on 05-25-2023 MCV (RBC) [Entitic vol] 92.4 fL 83.5-101 [facility] Monocytes Auto (Bld) [#/Vol] Ordered By: Zhou Fischer on 05-25-2023 Monocytes (Bld) [#/Vol] 0.5 10*3/uL 0.0-0.8 [facility] Monocytes/100 WBC Auto (Bld) Ordered By: Zhou Fischer on 05-25-2023 Monocytes/100 WBC (Bld) 9.6 % . [facility] Neutrophils Auto (Bld) [#/Vo l]Ordered By: Zhou Fischer on 05-25-2023 Neutrophils (Bld) [#/Vol] 3.1 10*3/uL 1.8-7.7 [facility] Neutrophils/100 WBC Auto (Bl d)Ordered By: Zhou Fischer on 05-25-2023 Neutrophils/100 WBC (Bld) 59.5 % . [facility] No Panel InformationOrdered By: Zhou Fischer on 05-25-2023 Estimated GFR (CKD-EPI) > 60.0 mL/Min [facility] Creatinine Clearance (Chem N/A [facility] Nucleated erythrocytes [Pres ence] in Blood by Automated countOrdered By: Zhou Fischer on 05-25-2023 Nucleated RBC Auto Ql (Bld) 0.2 /100{WBC} 0-0.5 [facility] Platelet mean volume Auto (B ld) [Entitic vol]Ordered By: Zhou Fischer on 05-25-2023 Platelet mean volume (Bld) [Entitic vol] 8.5 fL 6.6-10.1 [facility] Platelets Auto (Bld) [#/Vol] Ordered By: Zhou Fischer on 05-25-2023 Platelets (Bld) [#/Vol] 309 10*3/uL 150-450 [facility] Protein [Mass/volume] in Ser um or PlasmaOrdered By: Zhou Fischer on 05-25-2023 Protein [Mass/Vol] 6.7 g/dL 6.4-8.9 [facility] RBC Auto (Bld) [#/Vol]Ordere d By: Zhou Fischer on 05-25-2023 RBC (Bld) [#/Vol] 4.52 10*6/uL 3.90-5.60 [facility] Serum or plasma albumin/glob ulin mass ratioOrdered By: Zhou Fischer on 05-25-2023 Albumin/Globulin [Mass ratio] 2.0 {ratio} [facility] Serum or plasma non-glucuron idated bilirubin measurement (mass/volume)Ordered By: Zhou Fischer on 05-25-2023 Bilirubin.indirect [Mass/Vol] 0.4 mg/dL [facility] WBC Auto (Bld) [#/Vol]Ordere d By: Zhou Fischer on 05-25-2023 WBC (Bld) [#/Vol] 5.2 10*3/uL 4.1-10.5 [facility] Alanine aminotransferase [En zymatic activity/volume] in Serum or PlasmaOrdered By: Zhou Fischer on 03-17-2023 ALT [Catalytic activity/Vol] 26 U/L 7-52 [facility] Albumin [Mass/volume] in Ser um or Plasma by Bromocresol green (BCG) dye binding methoOrdered By: Zhou Fischer on 03-17-2023 Albumin BCG dye [Mass/Vol] 4.4 g/dL 3.5-5.7 [facility] Alkaline phosphatase [Enzyma tic activity/volume] in Serum or PlasmaOrdered By: Zhou Fischer on 03-17-2023 ALP [Catalytic activity/Vol] 74 U/L 34-104 [facility] Aspartate aminotransferase [ Enzymatic activity/volume] in Serum or PlasmaOrdered By: Zhou Fischer on 03-17-2023 AST [Catalytic activity/Vol] 21 U/L 13-39 [facility] Basophils Auto (Bld) [#/Vol] Ordered By: Zhou Fischer on 03-17-2023 Basophils (Bld) [#/Vol] 0.0 10*3/uL 0.0-0.2 [facility] Basophils/100 WBC Auto (Bld) Ordered By: Zhou Fischer on 03-17-2023 Basophils/100 WBC (Bld) 0.7 % . [facility] Bilirubin.direct [Mass/volum e] in Serum or PlasmaOrdered By: Zhou Fischer on 03-17-2023 Bilirubin.direct [Mass/Vol] 0.10 mg/dL 0.03-0.18 [facility] Bilirubin.total [Mass/volume ] in Serum or PlasmaOrdered By: Zhou Fischer on 03-17-2023 Bilirubin [Mass/Vol] 0.5 mg/dL 0.3-1.0 [facility] Creatinine [Mass/volume] in Serum or PlasmaOrdered By: Zhou Fischer on 03-17-2023 Creatinine [Mass/Vol] 0.89 mg/dL 0.70-1.30 [facility] Eosinophils Auto (Bld) [#/Vo l]Ordered By: Zhou Fischer on 03-17-2023 Eosinophils (Bld) [#/Vol] 0.1 10*3/uL 0.0-0.45 [facility] Eosinophils/100 WBC Auto (Bl d)Ordered By: Zhou Fischer on 03-17-2023 Eosinophils/100 WBC (Bld) 2.0 % . [facility] Erythrocyte distribution wid th Auto (RBC) [Ratio]Ordered By: Zhou Fischer on 03-17-2023 Erythrocyte distribution width (RBC) [Ratio] 14.1 % 12.0-14.8 [facility] Erythrocyte sedimentation ra te by Photometric methodOrdered By: Zhou Fischer on 03-17-2023 ESR Photometric method (Bld) [Velocity] 5 mm/hr 0- [facility] Globulin Calc (S) [Mass/Vol] Ordered By: Zhou Fischer on 03-17-2023 Globulin (S) [Mass/Vol] 2.4 g/dL [facility] Hematocrit Auto (Bld) [Volum e fraction]Ordered By: Zhou Fischer on 03-17-2023 Hematocrit (Bld) [Volume fraction] 41.8 % 38.8-50.0 [facility] Hemoglobin [Mass/volume] in BloodOrdered By: Zhou Fischer on 03-17-2023 Hemoglobin (Bld) [Mass/Vol] 14.4 g/dL 13.0-17.0 [facility] Leukocytes [#/volume] correc basim for nucleated erythrocytes in Blood by Automated counOrdered By: Zhou Fischer on 03-17-2023 WBC corrected for nucl RBC Auto (Bld) [#/Vol] 5.2 10*3/uL 4.1-10.5 [facility] Lymphocytes Auto (Bld) [#/Vo l]Ordered By: Zhou Fischer on 03-17-2023 Lymphocytes (Bld) [#/Vol] 1.4 10*3/uL 1.00-4.8 [facility] Lymphocytes/100 WBC Auto (Bl d)Ordered By: Zhou Fischer on 03-17-2023 Lymphocytes/100 WBC (Bld) 27.2 % . [facility] MCH Auto (RBC) [Entitic mass ]Ordered By: Zhou Fischer on 03-17-2023 MCH (RBC) [Entitic mass] 31.3 pg 27.5-35.2 [facility] MCHC Auto (RBC) [Mass/Vol]Or dered By: Zhou Fischer on 03-17-2023 MCHC (RBC) [Mass/Vol] 34.3 g/dL 32.5-35.6 [facility] MCV Auto (RBC) [Entitic vol] Ordered By: Zhou Fischer on 03-17-2023 MCV (RBC) [Entitic vol] 91.1 fL 83.5-101 [facility] Monocytes Auto (Bld) [#/Vol] Ordered By: Zhou Fischer on 03-17-2023 Monocytes (Bld) [#/Vol] 0.4 10*3/uL 0.0-0.8 [facility] Monocytes/100 WBC Auto (Bld) Ordered By: Zhou Fischer on 03-17-2023 Monocytes/100 WBC (Bld) 8.0 % . [facility] Neutrophils Auto (Bld) [#/Vo l]Ordered By: Zhou Fischer on 03-17-2023 Neutrophils (Bld) [#/Vol] 3.2 10*3/uL 1.8-7.7 [facility] Neutrophils/100 WBC Auto (Bl d)Ordered By: Zhou Fischer on 03-17-2023 Neutrophils/100 WBC (Bld) 62.1 % . [facility] No Panel InformationOrdered By: Zhou Fischer on 03-17-2023 Estimated GFR (CKD-EPI) > 60.0 mL/Min [facility] Creatinine Clearance (Chem N/A [facility] Nucleated erythrocytes [Pres ence] in Blood by Automated countOrdered By: Zhou Fischer on 03-17-2023 Nucleated RBC Auto Ql (Bld) 0.0 /100{WBC} 0-0.5 [facility] Platelet mean volume Auto (B ld) [Entitic vol]Ordered By: Zhou Fischer on 03-17-2023 Platelet mean volume (Bld) [Entitic vol] 8.4 fL 6.6-10.1 [facility] Platelets Auto (Bld) [#/Vol] Ordered By: Zhou Fischer on 03-17-2023 Platelets (Bld) [#/Vol] 326 10*3/uL 150-450 [facility] Protein [Mass/volume] in Ser um or PlasmaOrdered By: Zhou Fischer on 03-17-2023 Protein [Mass/Vol] 6.8 g/dL 6.4-8.9 [facility] RBC Auto (Bld) [#/Vol]Ordere d By: Zhou Fischer on 03-17-2023 RBC (Bld) [#/Vol] 4.59 10*6/uL 3.90-5.60 [facility] Serum or plasma albumin/glob ulin mass ratioOrdered By: Zhou Fischer on 03-17-2023 Albumin/Globulin [Mass ratio] 1.8 {ratio} [facility] Serum or plasma non-glucuron idated bilirubin measurement (mass/volume)Ordered By: Zhou Fischer on 03-17-2023 Bilirubin.indirect [Mass/Vol] 0.4 mg/dL [facility] WBC Auto (Bld) [#/Vol]Ordere d By: Zhou Fischer on 03-17-2023 WBC (Bld) [#/Vol] 5.2 10*3/uL 4.1-10.5 [facility] Alanine aminotransferase [En zymatic activity/volume] in Serum or PlasmaOrdered By: Zhou Fischer on 02-24-2023 ALT [Catalytic activity/Vol] 42 U/L 7-52 [facility] Albumin [Mass/volume] in Ser um or Plasma by Bromocresol green (BCG) dye binding methoOrdered By: Zhou Fischer on 02-24-2023 Albumin BCG dye [Mass/Vol] 4.6 g/dL 3.5-5.7 [facility] Alkaline phosphatase [Enzyma tic activity/volume] in Serum or PlasmaOrdered By: Zhou Fischer on 02-24-2023 ALP [Catalytic activity/Vol] 66 U/L 34-104 [facility] Aspartate aminotransferase [ Enzymatic activity/volume] in Serum or PlasmaOrdered By: Zhou Fischer on 02-24-2023 AST [Catalytic activity/Vol] 31 U/L 13-39 [facility] Basophils Auto (Bld) [#/Vol] Ordered By: Zhou Fischer on 02-24-2023 Basophils (Bld) [#/Vol] 0.0 10*3/uL 0.0-0.2 [facility] Basophils/100 WBC Auto (Bld) Ordered By: Zhou Fischer on 02-24-2023 Basophils/100 WBC (Bld) 0.6 % . [facility] Bilirubin.direct [Mass/volum e] in Serum or PlasmaOrdered By: Zhou Fischer on 02-24-2023 Bilirubin.direct [Mass/Vol] 0.10 mg/dL 0.03-0.18 [facility] Bilirubin.total [Mass/volume ] in Serum or PlasmaOrdered By: Zhou Fischer on 02-24-2023 Bilirubin [Mass/Vol] 0.6 mg/dL 0.3-1.0 [facility] [place] Creatinine [Mass/volume] in Serum or PlasmaOrdered By: Zhou Fischer on 02-24-2023 Creatinine [Mass/Vol] 0.89 mg/dL 0.70-1.30 [facility] Eosinophils Auto (Bld) [#/Vo l]Ordered By: Zhou Fischer on 02-24-2023 Eosinophils (Bld) [#/Vol] 0.1 10*3/uL 0.0-0.45 [facility] Eosinophils/100 WBC Auto (Bl d)Ordered By: Zhou Fischer on 02-24-2023 Eosinophils/100 WBC (Bld) 2.8 % . [facility] Erythrocyte distribution wid th Auto (RBC) [Ratio]Ordered By: Zhou Fischer on 02-24-2023 Erythrocyte distribution width (RBC) [Ratio] 14.3 % 12.0-14.8 [facility] Erythrocyte sedimentation ra te by Photometric methodOrdered By: Zhou Fischer on 02-24-2023 ESR Photometric method (Bld) [Velocity] 4 mm/hr 0-19 [facility] Globulin Calc (S) [Mass/Vol] Ordered By: Zhou Fischer 02-24-2023 Globulin (S) [Mass/Vol] 2.5 g/dL [facility] Hematocrit Auto (Bld) [Volum e fraction]Ordered By: Zhou Fischer on 02-24-2023 Hematocrit (Bld) [Volume fraction] 42.4 % 38.8-50.0 [facility] Hemoglobin [Mass/volume] in BloodOrdered By: Zhou Fischer on 02-24-2023 Hemoglobin (Bld) [Mass/Vol] 14.3 g/dL 13.0-17.0 [facility] Leukocytes [#/volume] correc basim for nucleated erythrocytes in Blood by Automated counOrdered By: Zhou Fischer on 02-24-2023 WBC corrected for nucl RBC Auto (Bld) [#/Vol] 5.2 10*3/uL 4.1-10.5 [facility] Lymphocytes Auto (Bld) [#/Vo l]Ordered By: Zhou Fischer on 02-24-2023 Lymphocytes (Bld) [#/Vol] 1.7 10*3/uL 1.00-4.8 [facility] Lymphocytes/100 WBC Auto (Bl d)Ordered By: Zhou Fischer on 02-24-2023 Lymphocytes/100 WBC (Bld) 32.9 % . [facility] MCH Auto (RBC) [Entitic mass ]Ordered By: Zohu Fischer on 02-24-2023 MCH (RBC) [Entitic mass] 30.9 pg 27.5-35.2 [facility] MCHC Auto (RBC) [Mass/Vol]Or dered By: Zhou Ficsher on 02-24-2023 MCHC (RBC) [Mass/Vol] 33.7 g/dL 32.5-35.6 [facility] MCV Auto (RBC) [Entitic vol] Ordered By: Zhou Fischer on 02-24-2023 MCV (RBC) [Entitic vol] 91.8 fL 83.5-101 [facility] Monocytes Auto (Bld) [#/Vol] Ordered By: Zhou Fischer on 02-24-2023 Monocytes (Bld) [#/Vol] 0.5 10*3/uL 0.0-0.8 [facility] Monocytes/100 WBC Auto (Bld) Ordered By: Zhou Fischer on 02-24-2023 Monocytes/100 WBC (Bld) 9.2 % . [facility] Neutrophils Auto (Bld) [#/Vo l]Ordered By: Zhou Fischer on 02-24-2023 Neutrophils (Bld) [#/Vol] 2.8 10*3/uL 1.8-7.7 [facility] Neutrophils/100 WBC Auto (Bl d)Ordered By: Zhou Fischer on 02-24-2023 Neutrophils/100 WBC (Bld) 54.5 % . [facility] No Panel InformationOrdered By: Zhou Fischer on 02-24-2023 Estimated GFR (CKD-EPI) > 60.0 mL/Min [facility] Creatinine Clearance (Chem N/A [facility] Nucleated erythrocytes [Pres ence] in Blood by Automated countOrdered By: Zhou Fischer on 02-24-2023 Nucleated RBC Auto Ql (Bld) 0.1 /100{WBC} 0-0.5 [facility] Platelet mean volume Auto (B ld) [Entitic vol]Ordered By: Zhou Fischer on 02-24-2023 Platelet mean volume (Bld) [Entitic vol] 8.6 fL 6.6-10.1 [facility] Platelets Auto (Bld) [#/Vol] Ordered By: Zhou Fischer on 02-24-2023 Platelets (Bld) [#/Vol] 304 10*3/uL 150-450 [facility] Protein [Mass/volume] in Ser um or PlasmaOrdered By: Zhou Fischer on 02-24-2023 Protein [Mass/Vol] 7.1 g/dL 6.4-8.9 [facility] RBC Auto (Bld) [#/Vol]Ordere d By: Zhou Fischer on 02-24-2023 RBC (Bld) [#/Vol] 4.62 10*6/uL 3.90-5.60 [facility] Serum or plasma albumin/glob ulin mass ratioOrdered By: Zhou Fischer on 02-24-2023 Albumin/Globulin [Mass ratio] 1.8 {ratio} [facility] Serum or plasma non-glucuron idated bilirubin measurement (mass/volume)Ordered By: Zhou Fischer on 02-24-2023 Bilirubin.indirect [Mass/Vol] 0.5 mg/dL [facility] WBC Auto (Bld) [#/Vol]Ordere d By: Zhou Fischer on 02-24-2023 WBC (Bld) [#/Vol] 5.2 10*3/uL 4.1-10.5 [facility] Alanine aminotransferase [En zymatic activity/volume] in Serum or PlasmaOrdered By: Zhou Fischer on 01-26-2023 ALT [Catalytic activity/Vol] 33 U/L 7-52 [facility] Albumin [Mass/volume] in Ser um or Plasma by Bromocresol green (BCG) dye binding methoOrdered By: Zhou Fischer on 01-26-2023 Albumin BCG dye [Mass/Vol] 4.3 g/dL 3.5-5.7 [facility] Alkaline phosphatase [Enzyma tic activity/volume] in Serum or PlasmaOrdered By: Zhou Fischer on 01-26-2023 ALP [Catalytic activity/Vol] 70 U/L 34-104 [facility] Aspartate aminotransferase [ Enzymatic activity/volume] in Serum or PlasmaOrdered By: Zhou Fischer on 01-26-2023 AST [Catalytic activity/Vol] 24 U/L 13-39 [facility] Basophils Auto (Bld) [#/Vol] Ordered By: Zhou Fischer on 01-26-2023 Basophils (Bld) [#/Vol] 0.0 10*3/uL 0.0-0.2 [facility] Basophils/100 WBC Auto (Bld) Ordered By: Zhou Fischer on 01-26-2023 Basophils/100 WBC (Bld) 0.7 % . [facility] Bilirubin.direct [Mass/volum e] in Serum or PlasmaOrdered By: Zhou Fischer on 01-26-2023 Bilirubin.direct [Mass/Vol] 0.10 mg/dL 0.03-0.18 [facility] Bilirubin.total [Mass/volume ] in Serum or PlasmaOrdered By: Zhou Fischer on 01-26-2023 Bilirubin [Mass/Vol] 0.5 mg/dL 0.3-1.0 [facility] [place] Creatinine [Mass/volume] in Serum or PlasmaOrdered By: Zhou Fischer on 01-26-2023 Creatinine [Mass/Vol] 0.83 mg/dL 0.70-1.30 [facility] Eosinophils Auto (Bld) [#/Vo l]Ordered By: Zhou Fischer on 01-26-2023 Eosinophils (Bld) [#/Vol] 0.1 10*3/uL 0.0-0.45 [facility] Eosinophils/100 WBC Auto (Bl d)Ordered By: Zhou Fischer on 01-26-2023 Eosinophils/100 WBC (Bld) 2.5 % . [facility] Erythrocyte distribution wid th Auto (RBC) [Ratio]Ordered By: Zhou Fischer on 01-26-2023 Erythrocyte distribution width (RBC) [Ratio] 13.7 % 12.0-14.8 [facility] Erythrocyte sedimentation ra te by Photometric methodOrdered By: Zhou Fischer on 01-26-2023 ESR Photometric method (Bld) [Velocity] 4 mm/hr 0-19 [facility] Globulin Calc (S) [Mass/Vol] Ordered By: Zhou Fischer on 01-26-2023 Globulin (S) [Mass/Vol] 2.3 g/dL [facility] Hematocrit Auto (Bld) [Volum e fraction]Ordered By: Zhou Fischer on 01-26-2023 Hematocrit (Bld) [Volume fraction] 41.1 % 38.8-50.0 [facility] Hemoglobin [Mass/volume] in BloodOrdered By: Zhou Fischer on 01-26-2023 Hemoglobin (Bld) [Mass/Vol] 14.3 g/dL 13.0-17.0 [facility] Leukocytes [#/volume] correc basim for nucleated erythrocytes in Blood by Automated counOrdered By: Zhou Fischer on 01-26-2023 WBC corrected for nucl RBC Auto (Bld) [#/Vol] 5.6 10*3/uL 4.1-10.5 [facility] Lymphocytes Auto (Bld) [#/Vo l]Ordered By: Zhou Fischer on 01-26-2023 Lymphocytes (Bld) [#/Vol] 1.7 10*3/uL 1.00-4.8 [facility] Lymphocytes/100 WBC Auto (Bl d)Ordered By: Zhou Fischer on 01-26-2023 Lymphocytes/100 WBC (Bld) 29.7 % . [facility] MCH Auto (RBC) [Entitic mass ]Ordered By: Zhou Fischer on 01-26-2023 MCH (RBC) [Entitic mass] 31.1 pg 27.5-35.2 [facility] MCHC Auto (RBC) [Mass/Vol]Or dered By: Zhou Fischer on 01-26-2023 MCHC (RBC) [Mass/Vol] 34.9 g/dL 32.5-35.6 [facility] MCV Auto (RBC) [Entitic vol] Ordered By: Zhou Fischer on 01-26-2023 MCV (RBC) [Entitic vol] 89.2 fL 83.5-101 [facility] Monocytes Auto (Bld) [#/Vol] Ordered By: Zhou Fischer on 01-26-2023 Monocytes (Bld) [#/Vol] 0.5 10*3/uL 0.0-0.8 [facility] Monocytes/100 WBC Auto (Bld) Ordered By: Zhou Fischer on 01-26-2023 Monocytes/100 WBC (Bld) 8.7 % . [facility] Neutrophils Auto (Bld) [#/Vo l]Ordered By: Zhou Fischer on 01-26-2023 Neutrophils (Bld) [#/Vol] 3.3 10*3/uL 1.8-7.7 [facility] Neutrophils/100 WBC Auto (Bl d)Ordered By: Zhou Fischer on 01-26-2023 Neutrophils/100 WBC (Bld) 58.4 % . [facility] No Panel InformationOrdered By: Zhou Fischer on 01-26-2023 Estimated GFR (CKD-EPI) > 60.0 mL/Min [facility] Creatinine Clearance (Chem N/A [facility] Nucleated erythrocytes [Pres ence] in Blood by Automated countOrdered By: Zhou Fischer on 01-26-2023 Nucleated RBC Auto Ql (Bld) 0.1 /100{WBC} 0-0.5 [facility] Platelet mean volume Auto (B ld) [Entitic vol]Ordered By: Zhou Fischer on 01-26-2023 Platelet mean volume (Bld) [Entitic vol] 8.3 fL 6.6-10.1 [facility] Platelets Auto (Bld) [#/Vol] Ordered By: Zhou Fischer on 01-26-2023 Platelets (Bld) [#/Vol] 288 10*3/uL 150-450 [facility] Protein [Mass/volume] in Ser um or PlasmaOrdered By: Zhou Fischer on 01-26-2023 Protein [Mass/Vol] 6.6 g/dL 6.4-8.9 [facility] RBC Auto (Bld) [#/Vol]Ordere d By: Zhou Fischer on 01-26-2023 RBC (Bld) [#/Vol] 4.61 10*6/uL 3.90-5.60 [facility] Serum or plasma albumin/glob ulin mass ratioOrdered By: Zhou Fischer on 01-26-2023 Albumin/Globulin [Mass ratio] 1.9 {ratio} [facility] Serum or plasma non-glucuron idated bilirubin measurement (mass/volume)Ordered By: Zhou Fischer on 01-26-2023 Bilirubin.indirect [Mass/Vol] 0.4 mg/dL [facility] WBC Auto (Bld) [#/Vol]Ordere d By: Zhou Fischer on 01-26-2023 WBC (Bld) [#/Vol] 5.6 10*3/uL 4.1-10.5 [facility] Alanine aminotransferase [En zymatic activity/volume] in Serum or PlasmaOrdered By: Zhou Fischer on 01-12-2023 ALT [Catalytic activity/Vol] 40 U/L 7-52 [facility] Albumin [Mass/volume] in Ser um or Plasma by Bromocresol green (BCG) dye binding methoOrdered By: Zhou Fischer on 01-12-2023 Albumin BCG dye [Mass/Vol] 4.4 g/dL 3.5-5.7 [facility] Alkaline phosphatase [Enzyma tic activity/volume] in Serum or PlasmaOrdered By: Zhou Fischer on 01-12-2023 ALP [Catalytic activity/Vol] 69 U/L 34-104 [facility] Aspartate aminotransferase [ Enzymatic activity/volume] in Serum or PlasmaOrdered By: Zhou Fischer on 01-12-2023 AST [Catalytic activity/Vol] 27 U/L 13-39 [facility] Basophils Auto (Bld) [#/Vol] Ordered By: Zhou Fischer on 01-12-2023 Basophils (Bld) [#/Vol] 0.0 10*3/uL 0.0-0.2 [facility] Basophils/100 WBC Auto (Bld) Ordered By: Zhou Fischer on 01-12-2023 Basophils/100 WBC (Bld) 0.6 % . [facility] Bilirubin.direct [Mass/volum e] in Serum or PlasmaOrdered By: Zhou Fischer on 01-12-2023 Bilirubin.direct [Mass/Vol] 0.10 mg/dL 0.03-0.18 [facility] Bilirubin.total [Mass/volume ] in Serum or PlasmaOrdered By: Zhou Fischer on 01-12-2023 Bilirubin [Mass/Vol] 0.6 mg/dL 0.3-1.0 [facility] [place] Creatinine [Mass/volume] in Serum or PlasmaOrdered By: Zhou Fischer on 01-12-2023 Creatinine [Mass/Vol] 0.94 mg/dL 0.70-1.30 [facility] Eosinophils Auto (Bld) [#/Vo l]Ordered By: Zhou Fischer on 01-12-2023 Eosinophils (Bld) [#/Vol] 0.1 10*3/uL 0.0-0.45 [facility] Eosinophils/100 WBC Auto (Bl d)Ordered By: Zhou Fischer on 01-12-2023 Eosinophils/100 WBC (Bld) 2.3 % . [facility] Erythrocyte distribution wid th Auto (RBC) [Ratio]Ordered By: Zhou Fischer on 01-12-2023 Erythrocyte distribution width (RBC) [Ratio] 13.5 % 12.0-14.8 [facility] Erythrocyte sedimentation ra te by Photometric methodOrdered By: Zhou Fischer on 01-12-2023 ESR Photometric method (Bld) [Velocity] 5 mm/hr 0-19 [facility] Globulin Calc (S) [Mass/Vol] Ordered By: Zhou Fischer 01-12-2023 Globulin (S) [Mass/Vol] 2.5 g/dL [facility] Hematocrit Auto (Bld) [Volum e fraction]Ordered By: Zhou Fischer on 01-12-2023 Hematocrit (Bld) [Volume fraction] 41.6 % 38.8-50.0 [facility] Hemoglobin [Mass/volume] in BloodOrdered By: Zhou Fischer on 01-12-2023 Hemoglobin (Bld) [Mass/Vol] 14.4 g/dL 13.0-17.0 [facility] Leukocytes [#/volume] correc basim for nucleated erythrocytes in Blood by Automated counOrdered By: Zhou Fischer on 01-12-2023 WBC corrected for nucl RBC Auto (Bld) [#/Vol] 5.5 10*3/uL 4.1-10.5 [facility] Lymphocytes Auto (Bld) [#/Vo l]Ordered By: Zhou Fischer on 01-12-2023 Lymphocytes (Bld) [#/Vol] 1.4 10*3/uL 1.00-4.8 [facility] Lymphocytes/100 WBC Auto (Bl d)Ordered By: Zhou Fischer on 01-12-2023 Lymphocytes/100 WBC (Bld) 25.3 % . [facility] MCH Auto (RBC) [Entitic mass ]Ordered By: Zhou Fischer on 01-12-2023 MCH (RBC) [Entitic mass] 30.9 pg 27.5-35.2 [facility] MCHC Auto (RBC) [Mass/Vol]Or dered By: Zhou Fischer on 01-12-2023 MCHC (RBC) [Mass/Vol] 34.5 g/dL 32.5-35.6 [facility] MCV Auto (RBC) [Entitic vol] Ordered By: Zhou Fischer on 01-12-2023 MCV (RBC) [Entitic vol] 89.4 fL 83.5-101 [facility] Monocytes Auto (Bld) [#/Vol] Ordered By: Zhou Fischer on 01-12-2023 Monocytes (Bld) [#/Vol] 0.5 10*3/uL 0.0-0.8 [facility] Monocytes/100 WBC Auto (Bld) Ordered By: Zhou Fischer on 01-12-2023 Monocytes/100 WBC (Bld) 9.1 % . [facility] Neutrophils Auto (Bld) [#/Vo l]Ordered By: Zhou Fischer on 01-12-2023 Neutrophils (Bld) [#/Vol] 3.4 10*3/uL 1.8-7.7 [facility] Neutrophils/100 WBC Auto (Bl d)Ordered By: Zhou Fischer on 01-12-2023 Neutrophils/100 WBC (Bld) 62.7 % . [facility] No Panel InformationOrdered By: Zhou Fischer on 01-12-2023 Estimated GFR (CKD-EPI) > 60.0 mL/Min [facility] Creatinine Clearance (Chem N/A [facility] Nucleated erythrocytes [Pres ence] in Blood by Automated countOrdered By: Zhou Fischer on 01-12-2023 Nucleated RBC Auto Ql (Bld) 0.1 /100{WBC} 0-0.5 [facility] Platelet mean volume Auto (B ld) [Entitic vol]Ordered By: Zhou Fischer on 01-12-2023 Platelet mean volume (Bld) [Entitic vol] 8.2 fL 6.6-10.1 [facility] Platelets Auto (Bld) [#/Vol] Ordered By: Zhou Fischer on 01-12-2023 Platelets (Bld) [#/Vol] 291 10*3/uL 150-450 [facility] Protein [Mass/volume] in Ser um or PlasmaOrdered By: Zhou Fischer on 01-12-2023 Protein [Mass/Vol] 6.9 g/dL 6.4-8.9 [facility] RBC Auto (Bld) [#/Vol]Ordere d By: Zhou Fischer on 01-12-2023 RBC (Bld) [#/Vol] 4.65 10*6/uL 3.90-5.60 [facility] Serum or plasma albumin/glob ulin mass ratioOrdered By: Zhou Fischer on 01-12-2023 Albumin/Globulin [Mass ratio] 1.8 {ratio} [facility] Serum or plasma non-glucuron idated bilirubin measurement (mass/volume)Ordered By: Zhou Fischer on 01-12-2023 Bilirubin.indirect [Mass/Vol] 0.5 mg/dL [facility] WBC Auto (Bld) [#/Vol]Ordere d By: Zhou Fischer on 01-12-2023 WBC (Bld) [#/Vol] 5.5 10*3/uL 4.1-10.5 [facility] Hepatitis B virus surface Ag [Presence] in Serum or Plasma by ImmunoassayOrdered By: Zhou Fischer on 12-23-2022 HBV surface Ag IA Ql Negative Negative [facility] [place] Hepatitis C virus IgG Ab [Pr esence] in Serum or Plasma by ImmunoassayOrdered By: Zhou Fischer on 12-23-2022 HCV IgG IA Ql Non-Reactive Non Reactive [facility] No Panel InformationOrdered By: Zhou Fischer on 12-23-2022 Hepatitis B Core Total Antibody Negative Negative [facility] Comment on above: Performed at: [facility] [employer] [place] [id number] Director: Martin Forbes PhD, Phone: [phone] Hepatitis C Interpretation See comment . [facility] Comment on above: Not infected with HC V unless early or acute infection issuspected (which may be delayed in an immunocompromisedindividual), or other evidence exists to indicate HCVinfection. Hepatitis C RNA Quantitative N/A [facility] Serum hepatitis B virus surf mariia antibody detectionOrdered By: Zhou Fischer on 12-23-2022 HBV surface Ab Ql (S) Non-Reactive . [facility] Comment on above: Non Reactive: Incons istent with immunity, less than 10 mIU/mL Reactive: Consistent with immunity, greater than 9.9 mIU/mL Alanine aminotransferase [En zymatic activity/volume] in Serum or PlasmaOrdered By: Zhou Fischer on 12-16-2022 ALT [Catalytic activity/Vol] 33 U/L 7-52 [facility] Albumin [Mass/volume] in Ser um or Plasma by Bromocresol green (BCG) dye binding methoOrdered By: Zhou Fischer on 12-16-2022 Albumin BCG dye [Mass/Vol] 4.6 g/dL 3.5-5.7 [facility] Alkaline phosphatase [Enzyma tic activity/volume] in Serum or PlasmaOrdered By: Zhou Fischer on 12-16-2022 ALP [Catalytic activity/Vol] 73 U/L 34-104 [facility] Aspartate aminotransferase [ Enzymatic activity/volume] in Serum or PlasmaOrdered By: Zhou Fischer on 12-16-2022 AST [Catalytic activity/Vol] 26 U/L 13-39 [facility] Automated erythrocytes count in urine sediment (number/area)Ordered By: Zhou Fischer on 12-16-2022 RBC Auto (Urine sed) [#/Area] 1-2 [HPF] 0-4 [facility] Automated leukocytes count i n urine sediment (number/area)Ordered By: Zhou Fischer on 12-16-2022 WBC Auto (Urine sed) [#/Area] 0-1 [HPF] 0-4 [facility] Basophils Auto (Bld) [#/Vol] Ordered By: Zhou Fischer on 12-16-2022 Basophils (Bld) [#/Vol] 0.0 10*3/uL 0.0-0.2 [facility] Basophils/100 WBC Auto (Bld) Ordered By: Zhou Fischer on 12-16-2022 Basophils/100 WBC (Bld) 0.7 % . [facility] Bilirubin Auto test strip Ql (U)Ordered By: Zhou Fischer on 12-16-2022 Bilirubin Ql (U) Negative Negative [facility] Bilirubin.total [Mass/volume ] in Serum or PlasmaOrdered By: Zhou Fischer on 12-16-2022 Bilirubin [Mass/Vol] 0.6 mg/dL 0.3-1.0 [facility] [place] C reactive protein [Mass/vol ume] in Serum or PlasmaOrdered By: Zhou Fischer on 12-16-2022 CRP [Mass/Vol] < 0.5 mg/dL 0.0-0.5 [facility] Calcium [Mass/volume] in Ser um or PlasmaOrdered By: Zhuo Fischer on 12-16-2022 Calcium [Mass/Vol] 9.5 mg/dL 8.6-10.3 [facility] Carbon dioxide, total [Moles /volume] in Serum or PlasmaOrdered By: Zhou Fischer on 12-16-2022 CO2 [Moles/Vol] 28.8 mmol/L 21.0-31.0 [facility] Chloride [Moles/volume] in S honey or PlasmaOrdered By: Zhou Fischer on 12-16-2022 Chloride [Moles/Vol] 103 mmol/L 98-107 [facility] [place] Creatinine [Mass/volume] in Serum or PlasmaOrdered By: Zhou Fischer on 12-16-2022 Creatinine [Mass/Vol] 0.91 mg/dL 0.70-1.30 [facility] Eosinophils Auto (Bld) [#/Vo l]Ordered By: Zhou Fischer on 12-16-2022 Eosinophils (Bld) [#/Vol] 0.1 10*3/uL 0.0-0.45 [facility] Eosinophils/100 WBC Auto (Bl d)Ordered By: Zhou Fischer on 12-16-2022 Eosinophils/100 WBC (Bld) 2.3 % . [facility] Erythrocyte distribution wid th Auto (RBC) [Ratio]Ordered By: Zhou Fischer on 12-16-2022 Erythrocyte distribution width (RBC) [Ratio] 13.5 % 12.0-14.8 [facility] Erythrocyte sedimentation ra te by Photometric methodOrdered By: Zhou Fischer on 12-16-2022 ESR Photometric method (Bld) [Velocity] 6 mm/hr 0-19 [facility] Globulin Calc (S) [Mass/Vol] Ordered By: Zhou Fischer on 12-16-2022 Globulin (S) [Mass/Vol] 2.1 g/dL [facility] Glucose [Mass/volume] in Ser um or PlasmaOrdered By: Zhou Fischer on 12-16-2022 Glucose [Mass/Vol] 89 mg/dL 70-100 [facility] Comment on above: ADA recommended refe rence rangeRandom Glucose Reference Range is dependent on time and content of last meal. Glucose of more than 200 mg/dL in a nonstressed, ambulatory subject supports the diagnosis of Diabetes Mellitus. Hematocrit Auto (Bld) [Volum e fraction]Ordered By: Zhou Fischer on 12-16-2022 Hematocrit (Bld) [Volume fraction] 42.7 % 38.8-50.0 [facility] Hemoglobin [Mass/volume] in BloodOrdered By: Zhou Fischer on 12-16-2022 Hemoglobin (Bld) [Mass/Vol] 14.7 g/dL 13.0-17.0 [facility] Ketones Auto test strip (U) [Mass/Vol]Ordered By: Zhou Fischer on 12-16-2022 Ketones (U) [Mass/Vol] Negative Negative Fi [facility] - UrinalysisOrder ed By: Zhou Fischer on 12-16-2022 Hyaline casts LM Ql (Urine sed) None seen [LPF] 0-8 [facility] Leukocytes [#/volume] correc basim for nucleated erythrocytes in Blood by Automated counOrdered By: Zhou Fischer on 12-16-2022 WBC corrected for nucl RBC Auto (Bld) [#/Vol] 5.8 10*3/uL 4.1-10.5 [facility] Lymphocytes Auto (Bld) [#/Vo l]Ordered By: Zhou Fischer on 12-16-2022 Lymphocytes (Bld) [#/Vol] 1.6 10*3/uL 1.00-4.8 [facility] Lymphocytes/100 WBC Auto (Bl d)Ordered By: Zhou Fischer on 12-16-2022 Lymphocytes/100 WBC (Bld) 27.5 % . [facility] MCH Auto (RBC) [Entitic mass ]Ordered By: Zhou Fischer on 12-16-2022 MCH (RBC) [Entitic mass] 30.8 pg 27.5-35.2 [facility] MCHC Auto (RBC) [Mass/Vol]Or dered By: Zhou Fischer on 12-16-2022 MCHC (RBC) [Mass/Vol] 34.4 g/dL 32.5-35.6 [facility] MCV Auto (RBC) [Entitic vol] Ordered By: Zhou Fischer on 12-16-2022 MCV (RBC) [Entitic vol] 89.6 fL 83.5-101 [facility] Monocytes Auto (Bld) [#/Vol] Ordered By: Zhou Fischer on 12-16-2022 Monocytes (Bld) [#/Vol] 0.5 10*3/uL 0.0-0.8 [facility] Monocytes/100 WBC Auto (Bld) Ordered By: Zhou Fischer on 12-16-2022 Monocytes/100 WBC (Bld) 9.2 % . [facility] Neutrophils Auto (Bld) [#/Vo l]Ordered By: Zhou Fischer on 12-16-2022 Neutrophils (Bld) [#/Vol] 3.5 10*3/uL 1.8-7.7 [facility] Neutrophils/100 WBC Auto (Bl d)Ordered By: Zhou Fischer on 12-16-2022 Neutrophils/100 WBC (Bld) 60.3 % . [facility] No Panel InformationOrdered By: Zhou Fischer on 12-16-2022 Estimated GFR (CKD-EPI) > 60.0 mL/Min [facility] Creatinine Clearance (Chem N/A [facility] Nucleated erythrocytes [Pres ence] in Blood by Automated countOrdered By: Zhou Fischer on 12-16-2022 Nucleated RBC Auto Ql (Bld) 0.1 /100{WBC} 0-0.5 [facility] Platelet mean volume Auto (B ld) [Entitic vol]Ordered By: Zhou Fischer on 12-16-2022 Platelet mean volume (Bld) [Entitic vol] 8.7 fL 6.6-10.1 [facility] Platelets Auto (Bld) [#/Vol] Ordered By: Zhou Fischer on 12-16-2022 Platelets (Bld) [#/Vol] 284 10*3/uL 150-450 [facility] Potassium [Moles/volume] in Serum or PlasmaOrdered By: Zhou Fischer on 12-16-2022 Potassium [Moles/Vol] 4.5 mmol/L 3.5-5.1 [facility] Protein Auto test strip (U) [Mass/Vol]Ordered By: Zhou Fischer on 12-16-2022 Protein (U) [Mass/Vol] Negative Negative [facility] Protein [Mass/volume] in Ser um or PlasmaOrdered By: Zhou Fischer on 12-16-2022 Protein [Mass/Vol] 6.7 g/dL 6.4-8.9 [facility] RBC Auto (Bld) [#/Vol]Ordere d By: Zhou Fischer on 12-16-2022 RBC (Bld) [#/Vol] 4.76 10*6/uL 3.90-5.60 [facility] Serum or plasma albumin/glob ulin mass ratioOrdered By: Zhou Fischer on 12-16-2022 Albumin/Globulin [Mass ratio] 2.2 {ratio} [facility] Serum or plasma anion gap de terminationOrdered By: Zhou Fischer on 12-16-2022 Anion gap [Moles/Vol] 10.7 mmol/L 6.0-15.0 [facility] Serum or plasma complement C 3 measurement (mass/volume)Ordered By: Zhou Fischer on 12-16-2022 Complement C3 [Mass/Vol] 122 mg/dL 82-167 [facility] Comment on above: Performed at: [place] [id number] Director: Martin Forbes PhD, Phone: [phone] Serum or plasma complement C 4 measurement (mass/volume)Ordered By: Zhou Fischer on 12-16-2022 Complement C4 [Mass/Vol] 21 mg/dL 12-38 [facility] Sodium [Moles/volume] in Ser um or PlasmaOrdered By: Zhou Fischer on 12-16-2022 Sodium [Moles/Vol] 138 mmol/L 136-145 [facility] Squamous epithelial cells de tection in urine sediment by light microscopyOrdered By: Zhou Fischer on 12-16-2022 Epithelial cells.squamous LM Ql (Urine sed) None seen [HPF] 0-2 [facility] Urea nitrogen [Mass/volume] in Serum or PlasmaOrdered By: Zhou Fischer on 12-16-2022 Urea nitrogen [Mass/Vol] 13 mg/dL 7-25 [facility] Urine appearanceOrdered By: Zhou Fischer on 12-16-2022 Appearance (U) Clear Clear [facility] Urine bacteria detection by automated methodOrdered By: Zhou Fischer on 12-16-2022 Bacteria Auto Ql (U) None seen None Seen [facility] Urine colorOrdered By: Mohamud Fischer on 12-16-2022 Color (U) Yellow Yellow [facility] Urine glucose measurement by automated test strip (mass/volume)Ordered By: Zhou Fischer on 12-16-2022 Glucose Auto test strip (U) [Mass/Vol] Normal mg/dL Normal [facility] Urine hemoglobin detection b y automated test stripOrdered By: Zhou Fischer on 12-16-2022 Hemoglobin Auto test strip Ql (U) Negative Negative [facility] Urine leukocyte esterase det ection by automated test stripOrdered By: Zhou Fischer on 12-16-2022 Leukocyte esterase Auto test strip Ql (U) Negative Negative [facility] Urine nitrite detection by a utomated test stripOrdered By: Zhou Fischer on 12-16-2022 Nitrite Auto test strip Ql (U) Negative Negative [facility] Urobilinogen Auto test strip (U) [Mass/Vol]Ordered By: Zhou Fischer on 12-16-2022 Urobilinogen (U) [Mass/Vol] Normal mg/dL Normal [facility] WBC Auto (Bld) [#/Vol]Ordere d By: Zhou Fischer on 12-16-2022 WBC (Bld) [#/Vol] 5.8 10*3/uL 4.1-10.5 [facility] pH Auto test strip (U)Ordere d By: Zhou Fischer on 12-16-2022 pH (U) 1.020 [pH] 1.001-1.030 [facility] pH (U) 5.5 [pH] 5.0-9.0 [facility] CULTURE URINEon 11-17-2022 CULTURE URINE Culture Observations: NO GROWTH. Normal [facility] Comment on above: Performed By: #### U RCX #### [facility] [address] [place] [address] Dr. Emily Copeland UA RANDOMon 11-17-2022 Bilirubin Ql (U) Negative Normal NEGATIVE [facility] [place] Comment on above: Performed By: #### U A #### [facility] [address] [place] [address] Dr. Emily Copeland Clarity (U) CLEAR Normal CLEAR [facility] Comment on above: Performed By: #### U A #### [facility] [address] [place] [address] Dr. Emily Copeland Color (U) LT. YELLOW Normal YELLOW [facility] Comment on above: Performed By: #### U A #### [facility] [address] [place] [address] [address] Emily Copeland Glucose Ql (U) Negative Normal NEGATIVE [facility] Comment on above: Performed By: #### U A #### [facility] [address] [place] [address] Dr. Emily Copeland Hemoglobin Ql (U) TRACE-INTACT Abnormal NEGATIVE [facility] Comment on above: Performed By: #### U A #### [facility] [address] [place] [address] Dr. Emily Copeland Ketones Ql (U) Negative Normal NEGATIVE [facility] Comment on above: Performed By: #### U A #### [facility] [address] [place] [address] Dr. Emily Copeland LEUKOCYTES Negative Normal NEGATIVE [facility] Comment on above: Performed By: #### U A #### [facility] [address] [place] [address] Dr. Emily Copeland Nitrite Ql (U) Negative Normal NEGATIVE [facility] Comment on above: Performed By: #### U A #### [facility] [address] [place] [address] Dr. Emily Copeland pH (U) 6.0 [pH] Normal 5-9 [facility] Comment on above: Performed By: #### U A #### [facility] [address] [place] [address] Dr. Emily Copeland SPEC GRAVITY 1.010 Normal 1.005-<=1.02 5 [facility] Comment on above: Performed By: #### U A #### [facility] [address] [place] [address] Dr. Emily Copeland UA PROTEIN Negative Normal NEGATIVE/ TRACE [facility] Comment on above: Performed By: #### U A #### [facility] [address] [place] [address] Dr. Emily Copeland Urobilinogen Qn (U) 0.2 {Eron'U}/dL Normal 0.2 - 1. 0 [facility] Comment on above: Performed By: #### U A #### [facility] [address] [address] [address] Emily Copeland UA DIP, URINE (POC)on 2022 BILIRUBIN UA (POCT) Negative Negative [facility] CLARITY UA (POCT) Clear [facility] COLOR UA (POCT) Yellow [facility] GLUCOSE UA (POCT) Negative Negative mg/dL [facility] HEMOGLOBIN/BLOOD UA (POCT) Negative Negative [facility] KETONE UA (POCT) Negative Negative mg/dL [facility] LEUKOCYTES UA (POCT) Negative Negative [facility] NITRITE UA (POCT) Negative Negative [facility] PH UA (POCT) 6.5 4.5 - 8.0 [facility] Protein Ql (U) Negative Negative mg/dL [facility] SPECIFIC GRAVITY UA (POCT) 1.015 1.005 - 1.030 [facility] UROBILINOGEN UA (POCT) 0.2 E.U./dL [place] E.U./dL [facility] UA DIP, URINE (POC)on 2022 BILIRUBIN UA (POCT) Negative Negative [facility] CLARITY UA (POCT) Clear [facility] COLOR UA (POCT) Yellow [facility] GLUCOSE UA (POCT) Negative Negative mg/dL [facility] HEMOGLOBIN/BLOOD UA (POCT) Negative Negative [facility] KETONE UA (POCT) Negative Negative mg/dL [facility] LEUKOCYTES UA (POCT) Negative Negative [facility] NITRITE UA (POCT) Negative Negative [facility] PH UA (POCT) 7.0 4.5 - 8.0 [facility] Protein Ql (U) Negative Negative mg/dL [facility] SPECIFIC GRAVITY UA (POCT) 1.015 1.005 - 1.030 [facility] UROBILINOGEN UA (POCT) 0.2 E.U./dL [place] E.U./dL [facility] Albumin [Mass/volume] in Ser um or PlasmaOrdered By: Zhou Fischer on 07-01-2022 Albumin [Mass/Vol] 4.3 g/dL 3.2-5.5 [facility] Automated erythrocytes count in urine sediment (number/area)Ordered By: Zhou Fischer on 07-01-2022 RBC Auto (Urine sed) [#/Area] None seen [HPF] 0-4 [facility] Automated leukocytes count i n urine sediment (number/area)Ordered By: Zhou Fischer on 07-01-2022 WBC Auto (Urine sed) [#/Area] None seen [HPF] 0-4 [facility] Basophils Auto (Bld) [#/Vol] Ordered By: Zhou Fischer on 07-01-2022 Basophils (Bld) [#/Vol] 0.0 10*3/uL 0.0-0.2 [facility] Basophils/100 WBC Auto (Bld) Ordered By: Zhou Fischer on 07-01-2022 Basophils/100 WBC (Bld) 0.4 % . F [facility] Bilirubin Test strip Ql (U)O rdered By: Zhou Fischer on 07-01-2022 Bilirubin Ql (U) Negative Negative [facility] C reactive protein [Mass/vol ume] in Serum or PlasmaOrdered By: Zhou Fischer on 07-01-2022 CRP [Mass/Vol] 0.5 mg/dL 0.0-1.0 [facility] Color Auto (U)Ordered By: Laurie Fischer on 07-01-2022 Color (U) Yellow Yellow [facility] Creatine kinase [Enzymatic a ctivity/volume] in Serum or PlasmaOrdered By: Zhou Fischer on 07-01-2022 CK [Catalytic activity/Vol] 102 U/L 22-269 [facility] Creatinine and Glomerular fi ltration rate.predicted panel (S/P/Bld)Ordered By: Zhou Fischer on 07-01-2022 Creatinine [Mass/Vol] 0.93 mg/dL 0.64-1.27 [facility] Eosinophils Auto (Bld) [#/Vo l]Ordered By: Zhou Fischer on 07-01-2022 Eosinophils (Bld) [#/Vol] 0.1 10*3/uL 0.0-0.45 [facility] Eosinophils/100 WBC Auto (Bl d)Ordered By: Zhou Fischer on 07-01-2022 Eosinophils/100 WBC (Bld) 2.5 % . [facility] Erythrocyte distribution wid th Auto (RBC) [Ratio]Ordered By: Zhou Fischer on 07-01-2022 Erythrocyte distribution width (RBC) [Ratio] 13.9 % 12.0-14.8 [facility] Estimated glomerular filtrat ion rate (GFR) non- AmericanOrdered By: Zhou Fischer on 07-01-2022 GFR/1.73 sq M.predicted among non-blacks MDRD (S/P/Bld) [Vol rate/Area] > 60 mL/Min [facility] Globulin Calc (S) [Mass/Vol] Ordered By: Zhou Fischer on 07-01-2022 Globulin (S) [Mass/Vol] 2.5 g/dL F [facility] Hematocrit Auto (Bld) [Volum e fraction]Ordered By: Zhou Fischer on 07-01-2022 Hematocrit (Bld) [Volume fraction] 46.1 % 38.8-50.0 [facility] Hemoglobin [Mass/volume] in BloodOrdered By: Zhou Fischer on 07-01-2022 Hemoglobin (Bld) [Mass/Vol] 15.7 g/dL 13.0-17.0 [facility] Ketones Auto test strip (U) [Mass/Vol]Ordered By: Zhou Fischer on 07-01-2022 Ketones (U) [Mass/Vol] Negative Negative Fi [facility] - UrinalysisOrder ed By: Zhou Fischer on 07-01-2022 Hyaline casts LM Ql (Urine sed) None seen [LPF] 0-8 [facility] Leukocytes [#/volume] correc basim for nucleated erythrocytes in Blood by Automated counOrdered By: Zhou Fischer on 07-01-2022 WBC corrected for nucl RBC Auto (Bld) [#/Vol] 5.9 10*3/uL 4.1-10.5 [facility] Lymphocytes Auto (Bld) [#/Vo l]Ordered By: Zhou Fischer on 07-01-2022 Lymphocytes (Bld) [#/Vol] 1.5 10*3/uL 1.00-4.8 [facility] Lymphocytes/100 WBC Auto (Bl d)Ordered By: Zhou Fischer on 07-01-2022 Lymphocytes/100 WBC (Bld) 25.1 % . [facility] MCH Auto (RBC) [Entitic mass ]Ordered By: Zhou Fischer on 07-01-2022 MCH (RBC) [Entitic mass] 30.4 pg 27.5-35.2 [facility] MCHC Auto (RBC) [Mass/Vol]Or dered By: Zhou Fischer on 07-01-2022 MCHC (RBC) [Mass/Vol] 34.0 g/dL 32.5-35.6 Fir [facility] MCV Auto (RBC) [Entitic vol] Ordered By: Zhou Fischer on 07-01-2022 MCV (RBC) [Entitic vol] 89.5 fL 83.5-101 F [facility] Monocytes Auto (Bld) [#/Vol] Ordered By: Zhou Fischer on 07-01-2022 Monocytes (Bld) [#/Vol] 0.5 10*3/uL 0.0-0.8 [facility] Monocytes/100 WBC Auto (Bld) Ordered By: Zhou Fischer on 07-01-2022 Monocytes/100 WBC (Bld) 8.4 % . F [facility] Neutrophils Auto (Bld) [#/Vo l]Ordered By: Zhou Fischer on 07-01-2022 Neutrophils (Bld) [#/Vol] 3.7 10*3/uL 1.8-7.7 [facility] Neutrophils/100 WBC Auto (Bl d)Ordered By: Zhou Fischer on 07-01-2022 Neutrophils/100 WBC (Bld) 63.6 % . [facility] Nitrite Test strip Ql (U)Ord ered By: Zhou Fischer on 07-01-2022 Nitrite Ql (U) Negative Negative [facility] No Panel InformationOrdered By: Zhou Fischer on 07-01-2022 Estimated GFR () > 60 mL/Min [facility] Comment on above: GFR estimated refere nce range: According to KDOQI guidelines, <60 ml/min/1.73m2 is sufficient to diagnose a patient with chronic kidney disease. Pharmacy Creatinine Clearance (Chem N/A [facility] Nucleated erythrocytes [Pres ence] in Blood by Automated countOrdered By: Zhou Fischer on 07-01-2022 Nucleated RBC Auto Ql (Bld) 0.1 /100{WBC} 0-0.5 [facility] Platelet mean volume Auto (B ld) [Entitic vol]Ordered By: Zhou Fischer on 07-01-2022 Platelet mean volume (Bld) [Entitic vol] 8.4 fL 6.6-10.1 [facility] Platelets Auto (Bld) [#/Vol] Ordered By: Zhou Fischer on 07-01-2022 Platelets (Bld) [#/Vol] 323 10*3/uL 150-450 [facility] Protein Auto test strip (U) [Mass/Vol]Ordered By: Zhou Fischer on 07-01-2022 Protein (U) [Mass/Vol] Negative Negative [facility] Protein [Mass/volume] in Ser um or PlasmaOrdered By: Zhou Fischer on 07-01-2022 Protein [Mass/Vol] 6.8 g/dL 6.1-7.9 [facility] RBC Auto (Bld) [#/Vol]Ordere d By: Zhou Fischer on 07-01-2022 RBC (Bld) [#/Vol] 5.15 10*6/uL 3.90-5.60 [facility] Serum or plasma alanine castelan otransferase measurement without P-5'-P (enzymatic activiOrdered By: Zhou Fischer on 07-01-2022 ALT No additional P-5'-P [Catalytic activity/Vol] 54 U/L 10-60 [facility] Serum or plasma albumin/glob ulin mass ratioOrdered By: Zhou Fischer on 07-01-2022 Albumin/Globulin [Mass ratio] 1.7 {ratio} [facility] Serum or plasma alkaline saurabh sphatase measurement (enzymatic activity/volume)Ordered By: Zhou Fischer on 07-01-2022 ALP [Catalytic activity/Vol] 73 U/L 32-92 [facility] Serum or plasma anion gap de terminationOrdered By: Zhou Fischer on 07-01-2022 Anion gap [Moles/Vol] 13.0 mmol/L 6.0-15.0 [facility] Serum or plasma aspartate am inotransferase measurement (enzymatic activity/volume)Ordered By: Zhou Fischer on 07-01-2022 AST [Catalytic activity/Vol] 35 U/L 10-42 [facility] Serum or plasma calcium adelso urement (mass/volume)Ordered By: Zhou Fischer on 07-01-2022 Calcium [Mass/Vol] 9.7 mg/dL 8.2-10.2 [facility] Serum or plasma chloride yannick surement (moles/volume)Ordered By: Zhou Fischer on 07-01-2022 Chloride [Moles/Vol] 99 mmol/L 95-114 [facility] Serum or plasma glucose adelso urement (mass/volume)Ordered By: Zhou Fischer on 07-01-2022 Glucose [Mass/Vol] 87 mg/dL 70-100 [facility] Comment on above: ADA recommended refe rence rangeRandom Glucose Reference Range is dependent on time and content of last meal. Glucose of more than 200 mg/dL in a nonstressed, ambulatory subject supports the diagnosis of Diabetes Mellitus. Serum or plasma intact parat hyroid hormone measurement (mass/volume)Ordered By: Zhou Fsicher on 07-01-2022 Parathyrin.intact [Mass/Vol] 38.6 pg/mL 12-88 [facility] Serum or plasma potassium me asurement (moles/volume)Ordered By: Zhou Fischer on 07-01-2022 Potassium [Moles/Vol] 4.4 mmol/L 3.5-5.1 [facility] Serum or plasma sodium measu rement (moles/volume)Ordered By: Zhou Fischer on 07-01-2022 Sodium [Moles/Vol] 133 mmol/L 136-146 [facility] Serum or plasma total biliru bin measurement (mass/volume)Ordered By: Zhou Fischer on 07-01-2022 Bilirubin [Mass/Vol] 0.6 mg/dL 0.3-1.2 [facility] Serum or plasma total carbon dioxide measurement (moles/volume)Ordered By: Zhou Fischer on 07-01-2022 CO2 [Moles/Vol] 25.4 mmol/L 22.0-30.0 [facility] Serum or plasma urea nitroge n measurement (mass/volume)Ordered By: Zhou Fischer on 07-01-2022 Urea nitrogen [Mass/Vol] 13 mg/dL 9-23 [facility] Specific gravity Auto test s trip (U) [Rel density]Ordered By: Zhou Fischer on 07-01-2022 Specific gravity (U) [Rel density] 1.004 1.001-1.030 [facility] Squamous epithelial cells de tection in urine sediment by light microscopyOrdered By: Zhou Fischer on 07-01-2022 Epithelial cells.squamous LM Ql (Urine sed) None seen [HPF] 0-2 [facility] TSH DL <= 0.005 mIU/L QnOrde red By: Zhou Fischer on 07-01-2022 TSH Qn 1.31 m[IU]/L 0.45-5.33 [facility] Urine bacteria detection by automated methodOrdered By: Zhou Fischer on 07-01-2022 Bacteria Auto Ql (U) None seen None Seen [facility] Urine clarity by refractomet ry automatedOrdered By: Zhou Fischer on 07-01-2022 Clarity Refractometry automated (U) Clear Clear [facility] Urine glucose measurement by automated test strip (mass/volume)Ordered By: Zhou Fischer on 07-01-2022 Glucose Auto test strip (U) [Mass/Vol] Normal mg/dL Normal [facility] Urine hemoglobin detection b y automated test stripOrdered By: Zhou Fischer on 07-01-2022 Hemoglobin Auto test strip Ql (U) Negative Negative [facility] Urine leukocyte esterase det ection by automated test stripOrdered By: Zhou Fischer on 07-01-2022 Leukocyte esterase Auto test strip Ql (U) Negative Negative [facility] Urobilinogen Auto test strip (U) [Mass/Vol]Ordered By: Zhou Fischer on 07-01-2022 Urobilinogen (U) [Mass/Vol] Normal mg/dL Normal [facility] WBC Auto (Bld) [#/Vol]Ordere d By: Zhou Fischer on 07-01-2022 WBC (Bld) [#/Vol] 5.9 10*3/uL 4.1-10.5 [facility] pH Auto test strip (U)Ordere d By: Zhou Fischer on 07-01-2022 pH (U) 6.5 [pH] 5.0-9.0 [facility] ALLIED HEALTHon 05-15-2022 ALLIED HEALTH HNO ID: [id number] Author: Liss Hutton RT(R) Service: ? Author [...] May 15, 2022 TIME: 8:28 AM Normal [facility] CREATININE BLDon 05-15-2022 Creatinine [Mass/Vol] 0.97 mg/dL Normal 0.73-1.22 [facility] Comment on above: Order Comment: Speci men Type: BLOOD SPECIMEN Ordering Facility: [facility] Address: [address] [place] [address] Performed By: #### C RET1 #### [facility] CLIA [id number] [place] ESTIMATED GLOMERULAR FILTRATION RATE 83 mL/min/1.73m??? Normal >=60 [facility] Comment on above: Order Comment: Specadalberto ceron Type: BLOOD SPECIMEN Ordering Facility: [facility] Address: [address] [place] [address] Result Comment: Marsha mated Glomerular Filtration Rate [...] GFR. Performed By: #### C RET1 #### [facility] CLIA [id number] [address] [place] [address] [place] [address] UROGRAM WO/W IVCONon 11-1 CT UROGRAM WO/W IVCON * * *Final Report* * * DATE OF EXAM: May 15 2022 8:37AM [facility] 0560 - CT UROGRAM WO/W [...] Images of the lung bases are clear. Airplane Cleaner (topogram) images: No additional findings. IMPRESSION: NO HYDRONEPHROSIS OR NEPHROLITHIASIS. NO ABNORMALLY ENHANCED RENAL OR BLADDER MASS. DIFFUSE SIGMOID DIVERTICULOSIS AND MILD NONSPECIFIC CIRCUMFERENTIAL RECTOANAL BOWEL WALL THICKENING. SUGGEST CLINICAL CORRELATION AND GI FOLLOW-UP. Saddle Stitching Machine Operator: PSCJay Transcribe Date/Time: May 16 2022 9:28A Dictated by : TATIANA DWYER MD This examination was interpreted and the report reviewed and electronically signed by: TATIANA DWYER MD on May 16 2022 12:36PM EST [id number] ACN Normal [facility] URINE CULTUREon 04-23-2022 Bacteria identified Cx Nom (U) No growth (<1,000 CFU/ml) [facility] LIANNE by IFAon 04-05-2022 Antinuclear Antibodies, IFA Positive Abnormal [facility] Comment on above: Result Comment: Nega tive <1:80 Borderline 1:80 Positive >1:80 Performed By: #### A NAIFA #### [facility] [address] [place] [address] Dr. Emily Copeland Centriole Pattern Normal [facility] [place] Comment on above: Performed By: #### A NAIFA #### [facility] [address] [address] [address] Emily Copeland Centromere Pattern Normal [facility] Comment on above: Performed By: #### A NAIFA #### [facility] [address] [address] [address] Emily Copeland Homogeneous Pattern 1:320 Critically high [facility] Comment on above: Result Comment: ICAP nomenclature: AC-1 Performed By: #### A NAIFA #### [facility] [address] [address] [address] Emily Copeland Midbody Pattern Normal [facility] Comment on above: Performed By: #### A NAIFA #### [facility] [address] [address] [address] Emily Copeland Note: Comment Normal [facility] Comment on above: Result Comment: For more [...] titers Nucleosomes, Histones Drug-induced SLE Speckled Sm, CONTROL ANALYST, SCL-70, SLE,MCTD,PSS (diffuse form), SS-A/SS-B Sjogrens Nucleolar SCL-70, PM-1/SCL High titers Scleroderma, PM/DM Centromere Centromere PSS (limited form) w/Crest syndrome variable Nuclear Dot [id number] Primary Biliary Cirrhosis Nuclear GP210, Primary Biliary Cirrhosis Membrane kacie A,B,C Performed By: #### A NAIFA #### [facility] [address] [place] [address] Dr. Emily Copeland Nuclear Dot Pattern Normal [facility] Comment on above: Performed By: #### A NAIFA #### [facility] [address] [place] [address] Dr. Emily Copeland Nuclear Membrane Pattern Normal [facility] Comment on above: Performed By: #### A NAIFA #### [facility] [address] [place] [address] Dr. Emily Copeland Nucleolar Pattern Normal [facility] Comment on above: Performed By: #### A NAIFA #### [facility] [address] [address] [address] Emily Copeland PCNA Pattern Normal [facility] Comment on above: Performed By: #### A NAIFA #### [facility] [address] [place] [address] Dr. Emily Copeland Speckled Pattern Normal [facility] Comment on above: Performed By: #### A NAIFA #### [facility] [address] [place] [address] Dr. Emily Copeland Spindle Apparatus Pattern Normal [facility] Comment on above: Performed By: #### A NAIFA #### [facility] [address] [place] [address] Dr. Emily Copeland ANTISTREPTOLYSIN O AB (ASO)o n 04-03-2022 Antistreptolysin O Ab 98.8 IU/mL Normal 0.0-200.0 [facility] Comment on above: Performed By: #### A SOAB #### [facility] [address] [place] [address] Dr. Emily Copeland CYTOLOGY NON-GYNon 2 Case Report Medical Cytology Report Case: [id number] Authorizing Provider: Nanci Carvajal MD Collected: 04/01/2022 04:04 PM Ordering Location: Urology Received: 04/01/2022 08:21 PM Pathologist: Tomás Andersen MD, PhD Specimen: URINE VOIDED [facility] Clinical History bladder cancer [facility] FINAL DIAGNOSIS A - URINE VOIDED Suspicious for high-grade urothelial carcinoma. [facility] Gross Description A. URINE VOIDED 80 cc clear yellow fluid. ThinPrep prepared. [facility] Performing Lab Technical component, anesthetic assistant screening performed at [facility], [address], [facility] [address] CLIA# [id number] Diagnostic interpretation performed at [facility], [address], [facility] [address] CLIA# [id number] Service Girl: Reid Monteiro M.D. [facility] RHEUMATOID FACTORon 04-03-20 22 RA Latex Turbid. 18.0 IU/mL Critically high <14.0 [facility] Comment on above: Performed By: #### R F #### [facility] [address] [place] [address] Dr. Emily Copeland CBC AUTO DIFFon 04-02-2022 BASO # 0.0 103/ul Normal 0.0-0.1 [facility] Comment on above: Performed By: #### C BC #### [facility] [address] [place] [address] Dr. Emily Copeland Basophils/100 WBC (Bld) 0.6 % Normal 0.2-2.0 [facility] Comment on above: Performed By: #### C BC #### [facility] [address] [place] [address] Dr. Emily Copeland EO # 0.1 103/ul Normal 0.0-0.7 [facility] Comment on above: Performed By: #### C BC #### [facility] [address] [place] [address] Dr. Emily Copeland Eosinophils/100 WBC (Bld) 2.2 % Normal 0.9-7.0 [facility] Comment on above: Performed By: #### C BC #### [facility] [address] [place] [address] Dr. Emily Copeland Erythrocyte distribution width (RBC) [Ratio] 13.0 % Normal 11.0-15.0 [facility] Comment on above: Performed By: #### C BC #### [facility] [address] [place] [address] Dr. Emily Copeland Hematocrit (Bld) [Volume fraction] 45.1 % Normal 42.0-54.0 [facility] Comment on above: Performed By: #### C BC #### [facility] [address] [place] [address] Dr. Emily Copeland Hemoglobin (Bld) [Mass/Vol] 15.3 g/dL Normal 14.0-18.0 [facility] Comment on above: Performed By: #### C BC #### [facility] [address] [place] [address] Dr. Emily Copeland IG # 0.01 10e3/ul Normal 0.00-0.03 [facility] Comment on above: Performed By: #### C BC #### [facility] [address] [place] [address] Dr. Emily Copeland IG % 0.2 % Normal 0.0-0.5 [facility] Comment on above: Performed By: #### C BC #### [facility] [address] [place] [address] Dr. Emily Copeland LYMPH # 1.8 103/ul Normal 1.2-3.[address] [facility] Comment on above: Performed By: #### C BC #### [facility] [address] [place] [address] Dr. Emily Copeland Lymphocytes/100 WBC (Bld) 29.0 % Normal 20.5-60.0 [facility] Comment on above: Performed By: #### C BC #### [facility] [address] [place] [address] Dr. Emily Copeland MANUAL DIFF REQ NO Normal [facility] Comment on above: Performed By: #### C BC #### [facility] [address] [place] [address] Dr. Emily Copeland MCH (RBC) [Entitic mass] 30.1 pg Normal 25.9-34.0 [facility] Comment on above: Performed By: #### C BC #### [facility] [address] [place] [address] Dr. Emily Copeland MCHC (RBC) [Mass/Vol] 33.9 g/dL Normal 29.9-35.2 [facility] Comment on above: Performed By: #### C BC #### [facility] [address] [place] [address] Dr. Emily Copeland MCV (RBC) [Entitic vol] 88.8 fL Normal 80.0-94.0 [facility] Comment on above: Performed By: #### C BC #### [facility] [address] [place] [address] Dr. Emily Copeland MONO # 0.7 103/ul Normal 0.3-0.8 [facility] Comment on above: Performed By: #### C BC #### [facility] [address] [place] [address] Dr. Emily Copeland Monocytes/100 WBC (Bld) 11.5 % Normal 1.7-12.0 [facility] Comment on above: Performed By: #### C BC #### [facility] [address] [place] [address] Dr. Emily Copeland NEUT # 3.6 103/ul Normal 1.4-6.5 [facility] Comment on above: Performed By: #### C BC #### [facility] [address] [place] [address] Dr. Emily Copeland Neutrophils/100 WBC (Bld) 56.5 % Normal 43.0-75.0 [facility] Comment on above: Performed By: #### C BC #### [facility] [address] [place] [address] Dr. Emily Copeland Platelet mean volume (Bld) [Entitic vol] 9.7 fL Normal 9.5-13.5 [facility] Comment on above: Performed By: #### C BC #### [facility] [address] [place], [place] [id number] Dr. Emily Copeland PLT 323 103/ul Normal 150-[address] [facility] Comment on above: Performed By: #### C BC #### [facility] [address] [place] [address] Dr. Emily Copeland RBC 5.08 106/ul Normal 4.70-6.10 [facility] Comment on above: Performed By: #### C BC #### [facility] [address] [place] [address] Dr. Emily Copeland WBC 6.4 103/ul Normal 4.0-11.0 [facility] Comment on above: Performed By: #### C BC #### [facility] [address] [place] [address] Dr. Emily Copeland CRPon 04-02-2022 CRP [Mass/Vol] mg/L Normal <=1.0 [facility] Comment on above: Performed By: #### C RP, CMP, URIC #### [facility] [address] [place] [address] Dr. Emily Copeland PROF 14(COMP METB)on 022 Albumin [Mass/Vol] 4.0 g/dL Normal 3.4-5.0 [facility] Comment on above: Performed By: #### C RP, CMP, URIC #### [facility] [address] [place] [address] Dr. Emily Copeland Albumin/Globulin [Mass ratio] 1.2 {ratio} Normal [facility] Comment on above: Performed By: #### C RP, CMP, URIC #### [facility] [address] [place] [address] Dr. Emily Copeland ALP [Catalytic activity/Vol] 79 U/L Normal 46-[address] [facility] Comment on above: Performed By: #### C RP, CMP, URIC #### [facility] [address] [place] [address] Dr. Emily Copeland ALT [Catalytic activity/Vol] 37 U/L Normal 16-63 [facility] Comment on above: Performed By: #### C RP, CMP, URIC #### [facility] [address] [address] [address] Emily Copeland Anion gap [Moles/Vol] 10.0 mmol/L Normal Th [facility] Comment on above: Performed By: #### C RP, CMP, URIC #### [facility] [address] [place] [address] Dr. Emily Copeland AST [Catalytic activity/Vol] 22 U/L Normal 15-[address] [facility] Comment on above: Performed By: #### C RP, CMP, URIC #### [facility] [address] [place] [address] Dr. Emily Copeland Bilirubin [Mass/Vol] 0.6 mg/dL Normal 0.2-1.0 [facility] Comment on above: Performed By: #### C RP, CMP, URIC #### [facility] [address] [place] [address] Dr. Emily Copeland Calcium [Mass/Vol] 9.4 mg/dL Normal 8.5-10.1 [facility] Comment on above: Performed By: #### C RP, CMP, URIC #### [facility] [address] [place] [address] Dr. Emily Copeland Chloride [Moles/Vol] 103 mmol/L Normal 98-107 [facility] Comment on above: Performed By: #### C RP, CMP, URIC #### [facility] [address] [place] [address] Dr. Emily Copeland CO2 [Moles/Vol] 29.3 mmol/L Normal 21.0-32.0 [facility] Comment on above: Performed By: #### C RP, CMP, URIC #### [facility] [address] [place] [address] Dr. Emily Copeland Creatinine [Mass/Vol] 0.94 mg/dL Normal 0.70-1.30 [facility] Comment on above: Performed By: #### C RP, CMP, URIC #### [facility] [address] [place] [address] Dr. Emily Copeland EGFR-AF TUNISIAN >60 Normal >=60 [facility] Comment on above: Performed By: #### C RP, CMP, URIC #### [facility] [address] [address] [address] Emily Copeland EGFR-NON AF TUNISIAN >60 Normal >=60 [facility] Comment on above: Performed By: #### C RP, CMP, URIC #### [facility] [address] [address] [address] Emily Copeland Globulin (S) [Mass/Vol] 3.4 g/dL Normal T [facility] Comment on above: Performed By: #### C RP, CMP, URIC #### [facility] [address] [address] [address] Emily Copeland Glucose [Mass/Vol] 98 mg/dL Normal 74-106 [facility] Comment on above: Performed By: #### C RP, CMP, URIC #### [facility] [address] [place] [address] Dr. Emily Copeland Potassium [Moles/Vol] 4.3 mmol/L Normal 3.5-5.1 [facility] Comment on above: Performed By: #### C RP, CMP, URIC #### [facility] [address] [address] [address] Eimly Copeland Protein [Mass/Vol] 7.4 g/dL Normal 6.4-8.2 [facility] Comment on above: Performed By: #### C RP, CMP, URIC #### [facility] [address] [address] [address] Emily Copeland Sodium [Moles/Vol] 138 mmol/L Normal 136-[address] [facility] Comment on above: Performed By: #### C RP, CMP, URIC #### [facility] [address] [address] [address] Emily Copeland Urea nitrogen [Mass/Vol] 19.0 mg/dL Critically high 7.0-18.0 [facility] Comment on above: Performed By: #### C RP, CMP, URIC #### [facility] [address] [address] [address] Emily Copeland Urea nitrogen/Creatinine [Mass ratio] 20.2 mg/mg Normal [facility] Comment on above: Performed By: #### C RP, CMP, URIC #### [facility] [address] [place], [place] [address] Dr. Emily Copleand URIC ACID SERUMon 04-02-2022 Urate [Mass/Vol] 5.2 mg/dL Normal 3.5-7.2 [facility] [place] Comment on above: Performed By: #### C RP, CMP, URIC #### [facility] [address] [place], [place] [address] Dr. Emily Copeland UA DIP, URINE (POC)on 2021 BILIRUBIN UA (POCT) Negative Negative [facility] CLARITY UA (POCT) Clear [facility] COLOR UA (POCT) Yellow [facility] GLUCOSE UA (POCT) Negative Negative mg/dL [facility] HEMOGLOBIN/BLOOD UA (POCT) Negative Negative [facility] KETONE UA (POCT) Negative Negative mg/dL [facility] LEUKOCYTES UA (POCT) Negative Negative [facility] NITRITE UA (POCT) Negative Negative [facility] PH UA (POCT) 6.0 4.5 - 8.0 [facility] Protein Ql (U) Negative Negative mg/dL [facility] SPECIFIC GRAVITY UA (POCT) 1.015 1.005 - 1.030 [facility] UROBILINOGEN UA (POCT) 0.2 E.U./dL [place] E.U./dL [facility] COVID-19, Rapidon 11-11-2021 SARS-CoV-2 (COVID-19) RNA BEN+probe Ql (Unsp spec) Not detected Not Detected [facility] Comment on above: Rapid NAAT: The [...] management decisions. Fact sheet for Healthcare Providers: https://www.fda.gov/media/200325/download Fact sheet for Patients: https://www.fda.gov/media/364134/download Methodology: Isothermal Nucleic Acid Amplification Specimen Description .NASOPHARYNGEAL SWAB [facility] [employer] Rapid Influenza A/B Antigens on 11-11-2021 Flu A Antigen Negative NEGATIVE [facility] Comment on above: for Influenza A Anti gen Flu B Antigen Negative NEGATIVE [facility] Comment on above: for Influenza B Anti gen. [employer] XR HIP 2-3 VW W PELVIS RIGHT on 06-13-2021 No change in the lumbar spine fusion and degenerative changes. Anatomically aligned right total hip prosthesis. [facility] EXAM: XR LUMBAR SPINE (MIN 4 VIEWS), XR HIP 2-3 VW W PELVIS RIGHT HISTORY: M25.551, low back pain, right hip pain. COMPARISON: Lumbar spine 05/14/2020, [facility] [place] [facility] abdomen and pelvis 03/22/2021. TECHNIQUE: 5 [...] hardware complication. Moderate degenerative change left hip. [facility] Roverto Fletcher Jr., MD - 06/13/2021 EXAM: XR LUMBAR SPINE (MIN 4 VIEWS), XR HIP 2-3 VW W PELVIS RIGHT HISTORY: M25.551, low back pain, right hip pain. COMPARISON: Lumbar spine 05/14/2020, [facility] [place] [facility] abdomen and pelvis 03/22/2021. TECHNIQUE: 5 [...] changes. Anatomically aligned right total hip prosthesis. [employer] Work Phone: Radiology Study observation (narrative) [employer] Work Phone: XR HIP 2-3 VW W PELVIS RIGHT Ordered By: Roverto Fletcher on 06-13-2021 [employer] Work Phone: Epidural Injectionon 021 Jose Francisco Villalpando MD 08/15/2020 11:13 AM Epidural Injection Performed by: Jose Francisco Villalpando MD Authorized by: Jose Francisco Villalpando MD Medications: 120 mg triamcinolone acetonide 40 mg/mL Anesthetic used: Lidocaine 1% PF Year Up XR Lumbar Spine Standard wit h Flex/Ext 4+ View[employer] 05-14-2020 INR Coag (Bld) [Relative time] Moderate degenerative changes 4.5 mm anterolisthesis L4 in relation L5 with mild dynamic instability identified during extension Workstation ID: [id number] [facility] EXAMINATION: XR LUMBAR SPINE STANDARD WITH FLEX/EXT [...] and reduces to 2 mm with extension. Xsru-jw-cegiodqt degenerative spondylosis and facet osteoarthropathy. DISC SPACES: Multilevel disc space narrowing. Near disc collapse with endplate sclerosis L2-L3. Intervertebral spacer L5-S1 PARASPINOUS:No paraspinous abnormality is seen. OTHER: Negative. [facility] Interface, Rad In [employer] - 05/14/2020 [...] and reduces to 2 mm with extension. Cotp-lw-ejrpiwfs degenerative spondylosis and facet osteoarthropathy. DISC SPACES: Multilevel disc space narrowing. Near disc collapse with endplate sclerosis L2-L3. Intervertebral spacer L5-S1 PARASPINOUS:No paraspinous abnormality is seen. OTHER: Negative. IMPRESSION: Moderate degenerative changes 4.5 mm anterolisthesis L4 in relation L5 with mild dynamic instability identified during extension Workstation ID: [id number] MR LUMBAR SPINE WITHOUT CONT RASTon 05-08-2020 1. Postsurgical changes from L4-L5 fusion. 2. 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 3. Moderate to severe degenerative disease throughout the lumbar spine as described above. Workstation ID: [id number] [facility] EXAMINATION: MRI lumbar spine without contrast HISTORY: [...] caliber and signal intensity. There are 5 ioo-fop-osxlpwy lumbar vertebrae. There is normal lumbar lordosis [...] stenosis secondary to osteophytes and facet arthropathy. [facility], Rad In [employer] - 05/08/2020 11:02 AM EST EXAMINATION: [...] caliber and signal intensity. There are 5 ufh-gvo-ovsbsvd lumbar vertebrae. There is normal lumbar lordosis [...] spine as described above. Workstation ID: [id number] [facility] Lumbar Spine 2-3 Views (S tandard)on 02-07-2020 Postoperative changes of posterior fixation at L5-S1, intact. No acute fracture. Stable grade 1 anterolisthesis of L4 on L5. Multilevel degenerative changes as detailed in the body of the report, grossly stable from 10/31/2019. [employer]/lab Workstation ID: [id number] [facility] EXAMINATION: XR LUMBAR SPINE 2-3 VIEWS (STANDARD) [...] Vertebral body heights are maintained. There is tutevhkf-us-yipfvl degenerative disc disease at L2-L3 as well as L1-L2 which remains stable. There is mild degenerative disc disease at the L3-L4 and L4-L5. No destructive osseous lesion. Imaged portion of the right hip arthroplasty are in near anatomic alignment. Degenerative changes of the left hip are noted. [facility] Interface, Rad In [employer] - 02/07/2020 [...] Vertebral body heights are maintained. There is kqbsivxy-nx-azzkkw degenerative disc disease at L2-L3 as well [...] of the report, grossly stable from 10/31/2019. [employer]/lab Workstation ID: [id number] [facility] Lab Reportson 12-08-2019 Lab Reports [id number]. [id number] [id number]:[id number] Normal [facility] Vital Signs Date Time Vital Sign Value Performing Clinician Facility 09-07-2024 11:24-0400 Diastolic blood pressure 65 mm[Hg] [facility] 1 [facility] 09-07-2024 11:24-0400 Heart rate 69 /min [facility] 1 [facility] [employer] 09-07-2024 11:24-0400 Systolic blood pressure 109 mm[Hg] [facility] 10-20-2023 12:26-0400 Body height 182.9 cm Sabina Red DO Work Phone: [facility] 10-20-2023 12:26-0400 Body mass index (BMI) [Ratio] 27.53 kg/m2 Sabina Red DO Work Phone: [facility] 10-20-2023 12:26-0400 Body temperature 98.29 [degF] Sabina Red DO Work Phone: [facility] 10-20-2023 12:26-0400 Body weight 92.08 kg Sabina Red DO Work Phone: [facility] 10-20-2023 12:26-0400 Diastolic blood pressure 75 mm[Hg] Sabina Red DO Work Phone: [facility] 10-20-2023 12:26-0400 Heart rate 60 /min Sabina Red DO Work Phone: [facility] 10-20-2023 12:26-0400 Respiratory rate 17 /min Sabina Red DO Work Phone: [facility] 10-20-2023 12:26-0400 SaO2% (BldA) [Mass fraction] 95 % Sabina Red DO Work Phone: [facility] 10-20-2023 12:26-0400 Systolic blood pressure 118 mm[Hg] Sabina Red DO Work Phone: [facility] 07-21-2023 15:15-0500 Body height 182.88 cm Mundo Dang Other [employer] Other 07-21-2023 15:15-0500 Body mass index (BMI) [Ratio] 28.21 kg/m2 [employer]undo Dang Other [employer] [employer] Other 07-21-2023 15:15-0500 Body weight 94.35 kg Mundo Dang Other [employer] Other 05-06-2023 14:03-0500 Diastolic blood pressure 75 mm[Hg] PHYSICIAN NO [facility] 05-06-2023 14:03-0500 Heart rate 71 /min PHYSICIAN NO [facility] 05-06-2023 14:03-0500 Respiratory rate 18 /min PHYSICIAN NO [facility] 05-06-2023 14:03-0500 SaO2% (BldA) [Mass fraction] 95 % PHYSICIAN NO [facility] 05-06-2023 14:03-0500 Systolic blood pressure 117 mm[Hg] PHYSICIAN NO [facility] 05-06-2023 12:13-0500 Body height 182.88 cm PHYSICIAN NO [facility] 05-06-2023 12:13-0500 Body temperature 97.6 [degF] PHYSICIAN NO [facility] 05-06-2023 12:13-0500 Body weight 94.34 kg PHYSICIAN NO [facility] 05-21-2022 10:45-0500 Body height 182.88 cm Mundo Dang Other [employer] [facility] Other 05-21-2022 10:45-0500 Body mass index (BMI) [Ratio] 28.21 kg/m2 Mundo Dang Other [employer] Other 05-21-2022 10:45-0500 Body weight 94.35 kg Mundo Dang Other [employer] Other 05-21-2022 10:45-0500 Diastolic blood pressure 80 mm[Hg] Mundo Dang Other [employer] Other 05-21-2022 10:45-0500 Systolic blood pressure 119 mm[Hg] Mundo Dang Other [employer] Other 12-04-2021 14:45-0400 Body height 182.88 cm Mundo Dang Other [employer] Other 12-04-2021 14:45-0400 Body mass index (BMI) [Ratio] 29.02 kg/m2 Mundo Dang Other [employer] Other 12-04-2021 14:45-0400 Body weight 97.07 kg Mundo Dang Other [employer] Other 11-27-2020 11:07-0400 Body height 182.9 cm Jose Francisco Villalpando MD Work Phone: [facility] 11-27-2020 11:07-0400 Body mass index (BMI) [Ratio] 29.84 kg/m2 Jose Francisco Villalpando MD Work Phone: [facility] 11-27-2020 11:07-0400 Body weight 99.79 kg Jose Francisco Villalpando MD Work Phone: [facility] 11-27-2020 11:07-0400 Diastolic blood pressure 66 mm[Hg] Jose Francisco Villalpando MD Work Phone: [facility] 11-27-2020 11:07-0400 Heart rate 85 /min Jose Francisco Villalpando MD Work Phone: [facility] 11-27-2020 11:07-0400 Systolic blood pressure 151 mm[Hg] Jose Francisco Villalpando MD Work Phone: [facility] 08-15-2020 10:58-0500 BMI (Body Mass Index) 29.84 kg/m2 Jose Francisco Villalpando [facility] 08-15-2020 10:58-0500 Body weight 99.79 kg Jose Francisco Villalpando [facility] 08-15-2020 10:58-0500 Height 182.9 cm Jose Francisco [facility] 05-14-2020 10:39-0500 BMI (Body Mass Index) 29.84 kg/m2 Jose Francisco [facility] 05-14-2020 10:39-0500 Body weight 99.[address] [facility] 05-14-2020 10:39-0500 BP Diastolic 74 mm[Hg] [facility] 05-14-2020 10:39-0500 BP Systolic 122 mm[Hg] [facility] 05-14-2020 10:39-[address] [facility] 05-14-2020 10:39-0500 Pulse (Heart Rate) 66 /min [facility] 02-07-2020 14:49-0400 BMI (Body Mass Index) 29.02 kg/m2 [facility] 02-07-2020 14:49-0400 Body weight 97.[address] [facility] 02-07-2020 14:49-[address] [facility] Encounters Encounter Date Encounter Type Care Provider Facility Start: 11-08-2024 End: 11-08-2024 Bamboo flowsheet Cruz Palma MD Work Phone: [facility] Start: 11-08-2024 End: 11-08-2024 Bamzullyo flowsshai Palma MD Work Phone: [facility] Start: 11-08-2024 End: 11-08-2024 Office outpatient new 30 minutes Cruz Palma MD Work Phone: [facility] Comment on above: Other atopic dermati tis (Primary Dx); Actinic keratosis; Rash and other nonspecific skin eruption Start: 11-08-2024 End: 11-08-2024 ambulatory CRUZ PALMA Not Available Start: 10-05-2024 End: 10-05-2024 Patient encounter procedure Danette GAYLE Work Phone: [facility] [address] Work Phone: Start: 10-05-2024 End: 10-05-2024 ambulatory Danette GAYLE Work Phone: [facility] Work Phone: Start: 09-07-2024 End: 09-09-2024 [facility]ulatory [facility] Start: 09-07-2024 End: 09-09-2024 Subsequent hospital visit by physician [facility] Nuclear Room [facility] Nuclear Medicine Comment on above: Arrived Chest pain, unspecif ied type; Intermittent chest pain Start: 08-30-2024 End: 08-30-2024 Patient encounter procedure Danette Muniz CLERK STENOGRAPHER-C Work Phone: [facility] [address] Work Phone: Start: 08-30-2024 End: 08-30-2024 ambulatory Danette Muniz CLERK STENOGRAPHER-C Work Phone: [facility] Work Phone: Start: 08-25-2024 End: 08-27-2024 ambulatory DANETTE MUNIZ [facility] Start: 08-25-2024 End: 08-27-2024 Subsequent hospital visit by physician [facility] Stress Lab 1 [facility] Non-Invasive Cardiology Comment on above: Intermittent chest p ain Start: 08-18-2024 End: 08-18-2024 ambulatory [facility] Start: 06-07-2024 End: 06-10-2024 Clinisync Result Encounter [...] bladder cancer Start: 06-07-2024 End: 06-07-2024 ambulatory ISAURO POE Facility:[facility] Start: 05-02-2024 End: 05-02-2024 Patient encounter procedure CLERK STENOGRAPHER-C Danette Muniz Work Phone: [facility] [address] Work Phone: Start: 05-02-2024 End: 05-02-2024 ambulatory CLERK STENOGRAPHER-C Danette Muniz Work Phone: [facility] Work Phone: Start: 03-16-2024 End: 03-16-2024 Patient encounter procedure CLERK STENOGRAPHER-C Danette Muniz Work Phone: [facility] [address] Work Phone: Start: 03-16-2024 End: 03-16-2024 ambulatory CLERK STENOGRAPHER-C Danette Muniz Work Phone: [facility] Work Phone: Start: 01-25-2024 End: 01-25-2024 ambulatory CARLOS POCOS Not Available Start: 01-25-2024 End: 01-25-2024 ambulatory CARLOS POCOS Not Available Start: 01-18-2024 End: 01-18-2024 ambulatory CARLOS POCOS Not Available Start: 12-28-2023 End: 12-28-2023 ambulatory CARLOS POCOS Not Available Start: 12-28-2023 End: 12-28-2023 Patient encounter procedure CLERK STENOGRAPHER-C Danette Muniz Work Phone: [facility] [address] Work Phone: Start: 12-28-2023 End: 12-28-2023 ambulatory CLERK STENOGRAPHER-C Danette Muniz Work Phone: [facility] Work Phone: Start: 12-01-2023 End: 12-01-2023 Patient encounter procedure Nanci Carvajal MD Work Phone: Urology Comment on above: Encounter for follow -up surveillance of bladder cancer (Primary Dx); History of bladder cancer Start: 12-01-2023 End: 12-01-2023 ambulatory ISAURO POE Facility:[facility] Start: 10-29-2023 End: 10-29-2023 Patient encounter procedure CLERK STENOGRAPHER-C Danette Muniz Work Phone: [facility] [address] Work Phone: Start: 10-29-2023 End: 10-29-2023 ambulatory CLERK STENOGRAPHER-C Danette Beatris Muniz Work Phone: [facility] Work Phone: Start: 10-20-2023 End: 10-20-2023 ambulatory ISAURO POE [facility] Amb[facility] Start: 10-20-2023 End: 10-20-2023 Encounter for other preprocedural examination SABINA RED [facility] Ambulatory Start: 10-20-2023 End: 10-20-2023 Office outpatient new 30 minutes Sabina Red DO Work Phone: [facility] Eye Pre admision Testing Comment on above: Pre-operative examin ation (Primary Dx); Traction detachment of right retina; Rheumatoid arthritis, involving unspecified site, unspecified whether rheumatoid factor present (HCC); Essential (primary) hypertension; Gastroesophageal reflux disease, unspecified whether esophagitis present; JOHNATHON (obstructive sleep apnea) Start: 10-20-2023 End: 10-20-2023 Preprocedural examination done Sabina Red DO Work Phone: [facility] Work Phone: Start: 07-21-2023 End: 07-21-2023 Patient encounter procedure CLERK STENOGRAPHER-C Danette Muniz Work Phone: [facility] [address] Work Phone: Start: 07-21-2023 End: 07-21-2023 ambulatory CLERK STENOGRAPHER-C Danette Muniz Work Phone: [facility] Work Phone: Start: 07-21-2023 Office outpatient [...] (HCC) [C67.9] Start: 05-25-2023 End: 05-25-2023 ambulatory CLERK STENOGRAPHER-C Danette Muniz Work Phone: [facility] Work Phone: Start: 05-25-2023 End: 05-25-2023 Patient encounter procedure CLERK STENOGRAPHER-C Danette Muniz Work Phone: [facility] [address] Work Phone: Start: 05-06-2023 End: 05-06-2023 Admission to same day surgery center [facility]IAN [facility] Work Phone: Start: 05-06-2023 End: 05-06-2023 ambulatory PHYSICIAN [facility] Work Phone: Start: 04-17-2023 End: 04-17-2023 ambulatory Mundo Dang Other [employer] Other Start: 04-17-2023 Telephone encounter Mundo Vazquez [facility] Gastroenterology Start: 03-17-2023 End: 03-17-2023 ambulatory [facility] Work Phone: Start: 03-17-2023 End: 03-17-2023 Patient encounter procedure PH[facility]ICIAN [facility] [address] Work Phone: Start: 02-24-2023 End: 02-24-2023 ambulatory [facility]IC[facility] Work Phone: Start: 02-24-2023 End: 02-24-2023 Patient encounter procedure PH[facility]ICIAN [facility] [address] Work Phone: Start: 01-26-2023 End: 01-26-2023 ambulatory [facility] Work Phone: Start: 01-26-2023 End: 01-26-2023 Patient encounter procedure PH[facility]ICIAN [facility] [address] Work Phone: Start: 01-12-2023 End: 01-12-2023 ambulatory [facility] Work Phone: Start: 01-12-2023 End: 01-12-2023 Patient encounter procedure PH[facility]ICIAN [facility] [address] Work Phone: Start: 12-23-2022 End: 12-23-2022 Patient encounter procedure [facility]ICIAN [facility] [address] Work Phone: Start: 12-16-2022 End: 12-16-2022 ambulatory [facility] Work Phone: Start: 12-16-2022 End: 12-16-2022 Patient encounter procedure [facility]ICIAN [facility] [address] Work Phone: Start: 11-22-2022 End: 11-23-2022 ambulatory DANETTE CRISTY Facility:[facility] Start: 11-17-2022 End: 11-18-2022 ambulatory DANETTE [...] 07-01-2022 ambulatory MD Zhou Fischer Work Phone: [facility] Work Phone: Start: 07-01-2022 End: 07-01-2022 Patient encounter procedure MD Zhou Fischer Work Phone: [facility] [address] Work Phone: Start: 06-30-2022 End: 06-30-2022 ambulatory DANETTE MUNIZ Facility:[facility] Start: 05-21-2022 End: 05-21-2022 ambulatory Mundo Dang Other [employer] Other Start: 05-21-2022 Office outpatient vi sit 15 minutes Mundo Dang [facility] Gastroenterology Start: 05-15-2022 End: 05-16-2022 ambulatory [facility]AL [facility] Start: 05-15-2022 End: 05-15-2022 Subsequent hospital visit by physician [facility] ([facility]Stat) Work Phone: [facility] Radiology CT Scan Comment on above: Malignant neoplasm o f urinary bladder, unspecified site (HCC) [C67.9] Start: 05-02-2022 Telephone encounter Nanci desir MD Work Phone: Urology 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 Start: 04-21-2022 Telephone [...] 12-04-2021 End: 12-04-2021 ambulatory Mundo Dang Other [employer] Other Start: 12-04-2021 Office outpatient ne w 45 minutes Mundo Dang [facility] Gastroenterology Start: 11-11-2021 End: 11-11-2021 Subsequent hospital visit by physician [facility] Covid19 Pat Screening Schedule [facility] PRE ADMIT Comment on above: Viral upper [...] MD Work Phone: Urology 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 Start: 06-13-2021 End: 06-15-2021 Subsequent hospital visit by physician [facility] Xray [facility] Radiology Comment on above: Right hip pain Start: 11-27-2020 End: 11-27-2020 Office outpatient visit 15 minutes Jose Francisco Villalpando MD Work Phone: [facility] Orthopedic and Sports Medicine Comment on above: Spinal stenosis of l umbar region without neurogenic claudication (Primary Dx); Lumbar degenerative disc disease Start: 11-09-2020 End: 11-09-2020 Documentation procedure Darlene Calderon LPN [facility] Start: 08-15-2020 End: 08-15-2020 Clinical Support Jose Francisco Villalpando Work Phone: [facility] Sports Medicine Comment on above: Spondylolisthesis of lumbar region (Primary Dx); Spinal stenosis of lumbar region without neurogenic claudication; Lumbar degenerative disc disease Start: 08-06-2020 End: 08-06-2020 Orders Only Martha Casey Work Phone: [facility] Start: 05-15-2020 End: 05-15-2020 Clinical Support Jose Francisco Villalpando Work Phone: [facility] Orthopedic [facility] Sports Medicine Comment on above: Spondylolisthesis of lumbar region (Primary Dx); Lumbar degenerative disc disease Start: 05-14-2020 End: 05-14-2020 Documentation procedure Darlene Calderon [facility] Ortho pedic and Sports Medicine Start: 05-14-2020 End: 05-14-2020 Subsequent hospital visit by physician Jose Francisco Villalpando Work Phone: [facility] Comment on above: Pain Start: 05-14-2020 End: 05-14-2020 Office outpatient visit 15 minutes Jose Francisco Villalpando Work Phone: [facility] Orthopedic [facility] Sports Medicine Comment on above: Spondylolisthesis of lumbar region (Primary Dx); Lumbar degenerative disc disease Start: 05-08-2020 End: 05-08-2020 Subsequent hospital visit by physician Jose Francisco Villalpando Work Phone: [facility] Comment on above: Spondylolisthesis of lumbar region; Back pain, unspecified back location, unspecified back pain laterality, unspecified chronicity Start: 03-16-2020 End: 03-16-2020 Subsequent hospital visit by physician Liss Rico Work Phone: [facility] Start: 03-14-2020 End: 03-14-2020 Subsequent hospital visit by physician Shelley Cunningham [facility] Comment on above: Arrived Start: 03-09-2020 End: 03-09-2020 Subsequent hospital visit by physician Shelley Cunningham [facility] Comment on above: Arrived Start: 03-07-2020 End: 03-07-2020 Subsequent hospital visit by physician Linda Gardner [facility] Comment on above: Arrived Start: 03-02-2020 End: 03-02-2020 Subsequent hospital visit by physician Linda Gardner [facility] Comment on above: Arrived Start: 02-28-2020 End: 02-28-2020 Subsequent hospital visit by physician Linda Gardner [facility] Comment on above: Arrived Start: 02-23-2020 End: 02-23-2020 Subsequent hospital visit by physician Linda Gardner [facility] Comment on above: Arrived Start: 02-21-2020 End: 02-21-2020 Subsequent hospital visit by physician Linda Gardner [facility] Comment on above: Arrived Start: 02-15-2020 End: 02-15-2020 Subsequent hospital visit by physician Shelley Cunningham [facility] Comment on above: Arrived Start: 02-07-2020 End: 02-07-2020 Subsequent hospital visit by physician Jose Francisco Villalpando Work Phone: [facility] Comment on above: Pain Start: 02-07-2020 End: 02-07-2020 Office outpatient new 30 minutes Isauro Poe Work Phone: [facility] Orthopedic [facility] Sports Medicine Comment on above: Spondylolisthesis of lumbar region (Primary Dx); Back pain, unspecified back location, unspecified back pain laterality, unspecified chronicity Procedures Date Procedure Procedure Detail Performing Clinician Start: 11-08-2024 CRYOTHERAPY SKIN LESION Cruz Palma MD Work Phone: Start: 09-07-2024 Myocardial spect multiple studies Danette Muniz RUBBER SPLICER - GAME ARTIST Work Phone: Start: 08-30-2024 X-ray of right foot Danette Muniz CLERK STENOGRAPHER-C Work Phone: Start: 06-07-2024 [facility] 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 Generic External Data Provider Start: 12-01-2023 Urnls [...] Start: 11-11-2021 COVID-19, RAPID Danette S Barb RUBBER SPLICER - GAME ARTIST Work Phone: Start: 11-11-2021 Iaadiadoo influenza Danette S Barb RUBBER SPLICER - GAME ARTIST Work Phone: Start: 06-13-2021 Radex hip unilateral with pelvis 2-3 views Zeinab Chavira DO Work Phone: Start: 08-15-2020 Inject spine lumbar/sacral Jose Francisco Villalpando Work Phone: Start: 05-14-2020 Radex spine lumbosacral minimum 4 views Jose Francisco Villalpando Work Phone: Start: 05-08-2020 MRI of lumbar spine without contrast Jose Francisco Villalpando Work Phone: Start: 02-07-2020 Radex spine lumbosacral 2/3 views Michae jas Villalpando Work Phone: Plan of Treatment Date Care Activity Detail Author Start: 02-27-2025 Influenza vaccination Influenz a Vaccine (Season Ended) [facility] Start: 01-25-2025 End: 01-25-2025 Patient encounter procedure 01/25/2025 10:00 AM EDT Office Visit [facility] [address] [place] [address] Zeinab Chavira DO [address] [place] [address] [facility] Start: 12-06-2024 End: 07-07-2025 CT Kidney WO and W contrast IV CT UROGRAM WO/W IVCON Radiology Routine History of bladder cancer Expected: 12/06/2024 (Approximate), Expires: 07/07/2025 [facility] Work Phone: Comment on above: Expected: 12/06/2024 (Approximate), Expires: 07/07/2025 Start: 12-06-2024 End: 12-06-2024 Patient encounter procedure 12/06/2024 10:55 AM EDT Office Visit [facility] [address] [place] [address] Cruz Palma MD [address] [place] [address] [facility] Start: 11-08-2024 End: 11-08-2024 Patient encounter procedure 11/08/2024 10:15 AM EDT Office Visit [facility] [address] [place] [address] Cruz Palma MD [address] [place] [address] Arrived [facility] Comment on above: Arrived Start: 06-07-2024 End: 09-06-2024 CREATININE BLD CREATININE BLD Lab Routine History of bladder cancer Expected: 06/07/2024, Expires: 09/06/2024 [facility] Comment on above: Expected: 06/07/2024 , Expires: 09/06/2024 Start: 02-28-2024 Covid-19 Vaccine ( season) Covid-19 Vaccine ( season) [facility] Start: 02-28-2024 Influenza vaccination [facility] Start: 01-28-2024 Influenza vaccination Flu vaccine (# 1) Mao [facility] Start: 07-23-2023 DIABETES SCREEN DIABETES SCREEN [facility] Start: 07-23-2023 Diabetes Screening Diabetes Screenin g [facility] Start: 06-29-2023 Advance Directive Discussion Advance Directive Discussion [facility] Start: 06-29-2023 Behavioral Health Screening Behavioral Health Screening [facility] Start: 05-25-2023 Annual Wellness Visi t (Medicare) Annual Wellness Visit (Medicare) Mao [facility] Start: 05-06-2023 [facility] Start: 02-27-2023 Covid-19 Vaccine () Covid-19 Vaccine () [facility] Start: 02-27-2023 Influenza vaccination [facility] Start: 07-04-2022 End: 05-03-2023 Ct abdomen & pelvis w/o contrst 1/> body re CT UROGRAM WO/W IVCON Radiology Routine Malignant neoplasm of urinary bladder, unspecified site (HCC) History of bladder cancer Expected: 07/04/2022, Expires: 05/03/2023 [facility] Work Phone: Comment on above: Expected: 07/04/2022 , Expires: 05/03/2023 Start: 07-01-2022 Hemolytic complement CH50 level [facility] Start: 06-29-2022 ADVANCE DIRECTIVE DISCUSSION ADVANCE DIRECTIVE DISCUSSION [facility] Start: 06-29-2022 DEPRESSION ASSESSMENT DEPRESSION ASS ESSMENT [facility] Start: 05-02-2022 End: 07-02-2022 CREATININE BLD CREATININE BLD Lab Routine Malignant neoplasm of urinary bladder, unspecified site (HCC) Abnormal urine cytology Expected: 05/02/2022, Expires: 07/02/2022 [facility] Work Phone: Comment on above: Expected: 05/02/2022 , Expires: 07/02/2022 Start: 04-03-2022 End: 06-03-2022 CREATININE BLD CREATININE BLD Lab Routine Malignant neoplasm of urinary bladder, unspecified site (HCC) History of bladder cancer Expected: 04/03/2022, Expires: 06/03/2022 [facility] Work Phone: Comment on above: Expected: 04/03/2022 , Expires: 06/03/2022 Start: 02-27-2022 Influenza vaccination INFLUENZA (#1) [facility] Start: 11-21-2021 Medicare Annual Well ness (AWV) Medicare Annual Wellness (AWV) [facility] Start: 10-03-2021 COVID-19 VACCINE (4 - Booster for Pfizer series) COVID-19 VACCINE (4 - Booster for Pfizer series) [facility] Start: 07-30-2021 COVID-19 VACCINE (4 - Booster for Pfizer series) COVID-19 VACCINE (4 - Booster for Pfizer series) [facility] Start: 07-27-2021 Pneumococcal 65+ yea rs Vaccine (2 - PCV) Pneumococcal 65+ years Vaccine (2 - PCV) [facility] Start: 07-27-2021 Pneumococcal vaccination Pneum ococcal Vaccine Age 65+ (2 of 2 - PCV13) [facility] Start: 06-29-2021 ADVANCE DIRECTIVE DISCUSSION ADVANCE DIRECTIVE DISCUSSION [facility] Start: 06-29-2021 DEPRESSION ASSESSMENT DEPRESSION ASS ESSMENT [facility] Start: 06-07-2021 Shingles Vaccine (2 of 2) Shingles Vaccine (2 of 2) [facility] Start: 11-27-2020 End: 11-27-2020 Admission to same day surgery center 11/27/2020 Clinical Support Orthopedic Surgery Jose Francisco Villalpando MD [address] [place] [address] [phone] [facility] Start: 11-12-2020 End: 11-12-2020 Clinical Support 11/12/2020 Clinical Support Orthopedic Surgery Jose Francisco Villalpando MD [address] [place] [address] [phone] [facility] Start: 05-15-2020 End: 05-15-2020 Clinical Support 05/15/2020 Clinical Support Orthopedic Surgery Jose Francisco Villalpando MD [address] [place] [address] [phone] [facility] Start: 05-14-2020 End: 05-14-2020 Office Visit 05/14/2020 Office Visit Orthopedic Surgery Jose Francisco Villalpando MD [address] [place] [address] [phone] [facility] Orthopedic [facility] Sports Medicine Start: 03-16-2020 End: 03-16-2020 Appointment 03/16/2020 Appointment Physical Therapy Liss Rico, PT [address] [place] [address] [phone] [facility] Start: 03-14-2020 End: 03-14-2020 Appointment 03/14/2020 Appointment Physical Therapy Shelley Cunningham PT [facility] Start: 03-09-2020 End: 03-09-2020 Appointment 03/09/2020 Appointment Physical Therapy Linda Gardner [facility] Start: 03-07-2020 End: 03-07-2020 Appointment 03/07/2020 Appointment Physical Therapy Linda Gardner [facility] Start: 03-02-2020 End: 03-02-2020 Appointment 03/02/2020 Appointment Physical Therapy Linda Gardner [facility] Start: 02-28-2020 Influenza vaccination Flu vaccine (# 1) [place], [place] Start: 02-28-2020 Influenza vaccinatio n given Sequential Influenza Vaccine (#1) [facility] Start: 02-28-2020 End: 02-28-2020 Appointment 02/28/2020 Appointment Physical Linda Murillo [facility] Start: 02-23-2020 End: 02-23-2020 Appointment 02/23/2020 Appointment Physical Linda Murillo [facility] Start: 02-21-2020 End: 02-21-2020 Appointment 02/21/2020 Appointment Physical Linda Murillo [facility] Start: 05-27-2018 Lipid panel [facility] Start: 04-24-2017 History and physical examination, annual for health maintenance Wellness Visit [facility] Start: 01-01-2016 Abdominal aortic aneurysm screening AAA screen [facility] Start: 01-01-2016 Fall risk assessment Falls Risk Asse ssment [facility] Start: 01-01-2016 Pneumococcal 65+ yea rs Vaccine (1 of 1 - PPSV23) Pneumococcal 65+ years Vaccine (1 of 1 - PPSV23) [place] Start: 01-01-2016 Pneumococcal vaccination Pneum ococcal Vaccine Age 65+ (1 of 2 - PCV13) [facility] Start: 01-01-2016 Pneumococcal Vaccine : Age 65+ (1 of 1 - PPSV23) Pneumococcal Vaccine: Age 65+ (1 of 1 - PPSV23) [facility] Start: 01-01-2016 PNEUMOCOCCAL: 65+ (1 - PCV) PNEUMOCOCCAL: 65+ (1 - PCV) [facility] Start: 01-01-2016 PNEUMOVAX AGE 65 AND OVER WITH 5YR LOOKBACK (#1) PNEUMOVAX AGE 65 AND OVER WITH 5YR LOOKBACK (#1) [facility] Start: 2010 Respiratory Syncytia l Virus (RSV) or age 60 yrs+ (1 - Risk 60-74 years 1-dose series) Respiratory Syncytial Virus (RSV) or age 60 yrs+ (1 - Risk 60-74 years 1-dose series) [facility] Start: 2010 RSV Vaccine (1 - 1-d ose 60+ series) RSV Vaccine (1 - 1-dose 60+ series) [facility] Start: 2010 RSV Vaccine (1 - Ris k 60-74 years 1-dose series) RSV Vaccine (1 - Risk 60-74 years 1-dose series) [facility] Start: 2000 Administration of he rpes zoster vaccine Zoster Vaccines (1 of 2) [facility] Start: 2000 Screening for malign ant neoplasm of colon [place], [place] Start: 2000 Shingles Vaccine (1 of 2) Shingles Vaccine (1 of 2) [place] Start: 2000 SHINGRIX VACCINE (1 of 2) SHINGRIX VACCINE (1 of 2) [facility] Start: 01-01-1996 COLOGUARD (FIT-DNA) COLOGUARD (FIT-D NA) [facility] Start: 01-01-[address] [facility] Start: 01-01-1996 COLORECTAL CANCER SCREENING COLORECTAL CANCER SCREENING [facility] Start: 01-01-[address] COLONOGRAPHY [facility] Start: 01-01-1996 FECAL OCCULT BLOOD FECAL OCCULT BLOO D [facility] Start: 01-01-1996 Screening for malign ant neoplasm of colon [facility] Start: 01-01-1996 [facility]COPY [facility] Start: 1985 Lipid 1996 panel - S honey or Plasma Lipid Screening [facility] Start: 1985 Lipid panel Lipid Screening [facility] Start: 1985 [address] S[address]EN LIPID SCREEN [facility] Start: 1969 DTaP/Tdap/Td vaccine (1 - Tdap) DTaP/Tdap/Td vaccine (1 - Tdap) [facility] Start: 1969 SHINGRIX VACCINE (1 of 2) SHINGRIX VACCINE (1 of 2) [facility] Start: [address] [facility] Start: 1968 Anxiety Screening Anxiety Screening [facility] Start: 1968 Depression Screening Depression Scre ening [facility] Start: 1968 Hepatitis C antibody , confirmatory test Hepatitis C Screening [facility] Start: 1968 Hepatitis C screening [facility] Start: 1968 HEPATITIS C SCREENING HEPATITIS C [facility] Start: 1966 COVID-19 Vaccine (1 of 2) COVID-19 Vaccine (1 of 2) [facility] Start: 1962 Adolescent depressio n screening assessment [facility] Start: 1962 COVID-19 Vaccine (1) COVID-19 Vaccin e (1) [facility] Start: 1962 Depression Screen Depression Screen [facility] Start: 1962 Depression screening using PHQ-9 (Patient Health Questionnaire 9) score [facility] Start: 1956 Pneumococcal Vaccine : 65+ (1 - PCV) Pneumococcal Vaccine: 65+ (1 - PCV) [facility] Start: 1956 PNEUMOCOCCAL: 65+ (1 - PCV) PNEUMOCOCCAL: 65+ (1 - PCV) [facility] Start: 1953 History and physical examination, annual for health maintenance Wellness Visit [facility] Start: 1950 Abdominal aortic aneurysm screening [facility] Start: 1950 ABDOMINAL AORTIC ANEURYSM SCREENING ABDOMINAL AORTIC ANEURYSM SCREENING [facility] Start: 1950 Fall risk assessment Falls Risk Asse ssment [facility] Start: 1950 Hepatitis C [facility] Start: 1950 Prostate specific antigen measurement PSA Level [facility] Start: 1950 Screening for malign ant neoplasm of colon [facility] Start: 1950 Tetanus vaccination Tetanus: Every 1 0yrs [facility] Start: 1950 US scan of abdominal aorta Abdominal Aortic Ultrasound [facility] End: 08-25-2024 Cardiovascular stress testing [facility] Work Phone: Comment on above: 1 Occurrences starti ng 08/25/2024 until 08/25/2024 End: 06-01-2023 Ct abdomen & pelvis w/o contrst 1/> body re CT UROGRAM WO/W IVCON Radiology Routine Malignant neoplasm of urinary bladder, unspecified site (HCC) 1 Occurrences starting 05/02/2022 until 06/01/2023 [facility] Work Phone: Comment on above: 1 Occurrences starti ng 05/02/2022 until 06/01/2023 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 CYTOLOGY NON-GY N Lab Routine Encounter for follow-up surveillance of bladder cancer 07/08/2022 3:27 PM EST [facility] Work Phone: 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 CYTOLOGY NON-GY N Lab Routine Encounter for follow-up surveillance of bladder cancer History of bladder cancer 10/21/2022 3:43 PM EDT [facility] Work Phone: 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 Patient Education Esophageal Dil ation Hiatal Hernia (DC) [facility] Work Phone: [facility] Immunizations Immunization Date Immunization Notes Care Provider Fa cili 04-12-2021 influenza virus vacc ine, unspecified formulation Ct (I-Stat) Work Phone: [facility] Payers Date Payer Category Payer Self-pay 2022 Unknown [id number] [address] [facility] [place] [id number] 2021 Unknown [id number] 2020 Unknown [id number] 1.13.159.2 .[id number] 2017 Unknown NABILA BCBS OUT OF STATE [facility] [place]-Present xxxxxxxxxxxx [id number] .[id number] 06-29-2017 Unknown [id number] 1.2.840.677483.1.13.385.2 .7.3.307750.315 03-29-2012 Medicare MEDICARE MEDICAR E PART A & B xxxxxxxxxxx 2012-Present CT xxxxxxxxxxx [id number] .7.3.608457.315 03-29-2012 Medicare [id number] 1.2.840.542646.1.13.385.2 .7.3.746322.315 03-29-2012 Medicare [id number]. 1.13.159.2 .7.3.047435.315 06-29-1959 Medicare [id number] 1.2.840.721493.1.13.239.2 .7.3.732947.315 06-29-1959 Medicare [id number] 06-29-1959 Unknown [id number] 1.2.840.344477.1.13.239.2 .7.3.666295.315 1950 Unknown [id number] 2.16.840.1.505429.3.579.2 .593 1950 Unknown [id number] 2.16.840.1.173791.3.579.2 .593 1950 Unknown [id number] 2.16.840.1.004629.3.579.2 .593 1950 Unknown [id number] 2.16.840.1.938434.3.579.2 .593 1950 Unknown [id number] 2.16.840.1.960835.3.579.2 .903 1950 Unknown [id number] 2.16.840.1.910858.3.579.2 .903 1950 Unknown [id number] 2.16.840.1.604045.3.579.2 .174 1950 Unknown [id number] 2.16.840.1.104555.3.579.2 .174 1950 Unknown [id number] 2.16.840.1.021876.3.579.2 .174 1950 Unknown [id number] 2.16.840.1.128433.3.579.2 .174 1950 Unknown [id number] 2.16.840.1.052119.3.579.2 .174 1950 Unknown [id number] 2.16.840.1.054969.3.579.2 .1259 1950 Unknown [id number] 2.16.840.1.954843.3.579.2 .1259 1950 Unknown [id number] 2.16.840.1.413162.3.579.2 .1259 1950 Unknown [id number] 2.16.840.1.142871.3.579.2 .1259 1950 Unknown [id number] 2.16.840.1.596282.3.579.2 .1259 1950 Unknown [id number] 2.16.840.1.563751.3.579.2 .1259 [facility]82 [id number] 2.16.840.1.937687.19 Medicare Medicare Outpatient [id number] Private Health Insurance [facility] [id number] Unknown [id number] 2.16.840.1.541283.3.579.2 .531 Unknown [id number] 2.16.840.1.633142.3.579.2 .531 Unknown [id number] 2.16.840.1.130289.3.579.2 .531 Unknown [id number] 2.16.840.1.389793.3.579.2 .531 Unknown [id number] 2.16.840.1.783161.3.579.2 .531 Unknown [id number] 2.16.840.1.018647.3.579.2 .531 Social History Date Type Detail Facility Start: 02-07-2020 End: 12-28-2023 Tobacco smoking status NHIS Former smoker [facility] Start: 02-07-2020 End: 10-20-2023 Alcohol intake Ex-drinker (finding) [facility] Start: 1950 Sex Assigned At Not on file [facility] Start: 10-14-2021 End: 05-15-2022 Exposure to SARS-CoV-2 (event) Not sure [facility] Start: 03-24-1962 End: 03-24-2002 History of tobacco use Current smoker [facility] Start: 09-12-2017 End: 12-28-2023 Tobacco use and exposure Never used NATALIYA Cheung Start: 09-12-2017 End: 11-11-2021 Alcohol intake Current drinker of alcohol (finding) [facility]ALI[facility] Cheung Start: 03-24-2013 Alcohol Comment rarely Marcella schultz NATALIYA SALGUERO Start: 08-02-2020 End: 11-08-2024 Sex Assigned At [facility] Start: 1950 Sex Assigned At Male F [facility] Start: 08-02-2020 End: 11-08-2024 History of [address] function [facility] National Score (1-100), lower number is lower risk [address] [facility] Start: 03-24-1962 End: 03-24-2002 History of tobacco use Cigarette Smoker [facility] Start: 01-25-2024 End: 11-08-2024 Alcoholic beverage intake Lifetime non-drinker (finding) [facility] Start: 01-30-2023 Alcohol Comment caffeine intak e: 1-2 cups per day [facility] Start: 12-21-2023 Gender identity Identifies as male gender (finding) [facility] Start: 08-30-2024 End: 10-06-2024 Sex Male (finding) [facility] Goals Date Patient Goal Desired Activity /State Clinical Notes 11-09-2020 to 11-08-2024 Cruz Palma MD - 11/08/2024 10:15 AM Belkis Walker RN - 09/07/2024 11:10 AM Nanci Davey MD - 06/07/2024 2:11 PM Gregorio Padgett RN - 06/07/2024 1:56 PM EST Note Date & Type Note Facility 11-08-2024 History of Present illness Narrative Lesions: Location: scalp Duration: months Quality: painful Associated symptoms: red, rough Treatments: none Has used Efudex cream in the past Lesions: Location: feet Duration: months, clear today Quality: denies pain Associated symptoms: red Treatments: none Rash Location: hands Duration: months Quality: itchy Associated symptoms: red, peeling Current treatments: moisturizers New patient (previous appointment 2020) All pertinent medical history, medications, and allergies were reviewed. General Exam: alert, oriented to person, place, and time, normal affect, well appearing Unaccompanied A focused exam completed based on patient reported problems, see below: Skin Exam 1. OTHER ATOPIC DERMATITIS Left Mid Palm, Right 4th Metacarpophalangeal Region Scaly erythematous plaques +/- dyspigmentation, lichenification, excoriations. Stable Discussed that atopic dermatitis is a chronic condition that can be controlled but not cured. Encouraged daily moisturizing and gentle cleansers to prevent flares. Patient declines treatment. Notify office if flaring despite treatment. 2. ACTINIC KERATOSIS (3) Mid Frontal Scalp (3) Erythematous scaly papules Patient was counseled regarding these sun-induced growths that can develop into squamous cell carcinoma if left untreated. Discussed treatment with cryotherapy. It was emphasized that any treated lesions that fail to resolve should be re-evaluated. Cryotherapy performed today; see procedure note Diagnosis: Actinic keratosis Indication: Precancerous Location: see skin exam Consent: Verbal consent was obtained and risks were discussed, including, but not limited to risks of scarring, darker or news reel cameraman pigmentary changes, recurrence, incomplete removal and infection. Method: Liquid nitrogen was used to treat the lesion(s) with two 5-10 second freeze-thaw cycles. Number of lesions treated: 3 Post-procedure instructions: Instructions were given orally and in writing. The office will be contacted if the lesion fails to resolve despite treatment, or if a side effect develops such as abnormal crusting, scabbing, redness or tenderness Patient elected for treatment with Efudex. Educated on Efudex treatment. Apply to Scalp and Forehead twice a day for two weeks. Discussed that treated areas will become red, crusty, and inflamed. If areas become too uncomfortable, patient may use OTC hydrocortisone cream to help decrease irritation and can discontinue treatment early. Sun exposure should be avoided during treatment. Patient instructed to contact office for any questions or issues during treatment. Lesions that fail to resolve once treated area is healed should be re-evaluated in the office. Handout given to patient. Cryotherapy, skin lesion - Mid Frontal Scalp (3) Related Medications fluorouracil (Efudex) 5 % cream Apply to directed areas on the scalp and forehead twice a day x 14 days. Dispense 30 day supply but only use for 14 days. 3. RASH AND OTHER NONSPECIFIC SKIN ERUPTION Left Medial Plantar Surface Clear today. Instructed to call for same day appointment if any recurrence. Next Visit: 4-6 weeks AK's documented in this encounter [facility] 09-07-2024 History of Present illness Narrative Pt arrives ambulatory for Lexiscan. Meds, allergies, and procedure verified. Denies any questions prior to procedure. 1119 - Lexiscan started. C/O shortness of breath initially. 1120 - Shortness of breath improving. Tolerating procedure without complaints. 1121 - Continues to tolerate well. 1122 - Pt c/o headache, no other complaints. 1124 - Lexiscan completed. Pt monica procedure well, snack and beverage provided. documented in this encounter [facility] 06-09-2024 Note [facility] DIAGNOSIS COMMENT The case was reviewed in consultation with Dr. Rachel Boone, who concurs. [facility] 06-07-2024 Note The case was reviewe d in consultation with Dr. Rachel Boone, who concurs. [facility] Comment on above: Order Comment: Speci men Type: URINE SPECIMEN Ordering Facility: [facility] Address: [address] [place] [address] Performed By: #### C YTONOAnnmarie #### [facility] CLIA [id number] [address] [place] [address] [place] 06-07-2024 Note HNO ID: [id number] Author: NANCI CARVAJAL MD Service: ? Author [...] CT urogram 6 months Nanci Carvajal MD [facility] 06-07-2024 History of Present illness Narrative [...] Yes Patient was roomed in: Q9- 06 Instrument Repair Specialist offered:Patient declines Patient arrived in the room [...] Education Session: None Instruction Provided To: Patient Eligibility Services Representative Present: not applicable Discipline: Nursing Learning Topic: [...] Gregorio Higgins RN documented in this encounter [facility] 06-07-2024 Note HNO ID: [id number] Author: GREGORIO HIGGINS RN Service: ? Author Type: Registered Nurse Type: Progress Notes Filed: 06/07/2024 14:17 Note Text: Patient ID with (2) Identifiers, Verified by: Gregorio Higgins RN Actual procedure/procedure scheduled: Yes Performing provider/scheduled provider: Yes Patient was roomed in: Q9- 06 Instrument Repair Specialist offered:Patient declines Patient arrived in the room [...] Education Session: None Instruction Provided To: Patient Eligibility Services Representative Present: not applicable Discipline: Nursing Learning Topic: [...] Visit completed when applicable. Gregorio Higgins RN [facility] 12-01-2023 Note HNO ID: [id number] Author: ANNI JOHNSTON LPN Service: ? Author [...] Visit completed when applicable. Anni Johnston LPN [facility] 12-01-2023 History of Present illness Narrative [...] Nanci Carvajal MD documented in this encounter [facility] 12-01-2023 Note HNO ID: [id number] Author: NANCI CARVAJAL MD Service: ? Author [...] CT urogram 12 months Nanci Carvajal MD [facility] 12-01-2023 Nurse Note Actual procedure/procedure scheduled: Yes Performing provider/scheduled provider: Yes Patient was roomed in: Q9- 09 Instrument Repair Specialist offered:Patient declines Patient arrived in the room [...] Education Session: None Instruction Provided To: Patient Eligibility Services Representative Present: not applicable Discipline: Nursing Learning Topic: SURVIVAL SKILLS: Symptom Management Patient Evaluation: Verbalizes understanding: Yes Supplemental Material Given: Written Material Instructed By Anni Johnston LPN In Department Urology . [facility] 12-01-2023 Nurse Note Actual procedure/procedure scheduled: Yes Performing provider/scheduled provider: Yes Patient was roomed in: Q9- 09 Instrument Repair Specialist offered:Patient declines Patient arrived in the room [...] Education Session: None Instruction Provided To: Patient Eligibility Services Representative Present: not applicable Discipline: Nursing Learning Topic: SURVIVAL SKILLS: Symptom Management Patient Evaluation: Verbalizes understanding: Yes Supplemental Material Given: Written Material Instructed By Anni Johnston LPN In Department Urology . documented in this encounter [facility] 10-20-2023 History of Present illness Narrative [...] ONCE A WEEK REMEBER YOUR STANDING LABS zffdnjjp-adr-vlgelre sulfate (One Daily Multi-Vit w-Mineral) 4.5 mg [...] Q-T Interval (corrected) QTC Calculation (Bezet) P [place] R [place] T [place] IMPRESSION/PLAN Timur Francisco is a 72 y.o. [...] Red DO 10/20/23 documented in this encounter [facility] 07-21-2023 Evaluation note Encounter Date Diagnosis Assessment Notes Jun, Schatzki's ring (ICD-10 - Q39.4) The patient has no further dysphagia after the EGD with dilation. He should continue his Omeprazole & follow up in the office as needed Jun, Hiatal hernia (ICD-10 - K44.9) The patient has a small hiatla hernia with a schatzki's ring above this. [facility] Other 12-05-2023 History of Present illness Narrative* [...] WNL Nanci Carvajal MD [facility] Nurse Note* Brisa Nieto RN - 06/02/2023 1:29 PM EST Actual procedure/procedure scheduled: Yes Performing provider/scheduled provider: Yes Patient was roomed in: Q9- 06 Instrument Repair Specialist offered:Patient accepts, visit chaperoned by Patient arrived [...] Education Session: None Instruction Provided To: Patient Eligibility Services Representative Present: not applicable Discipline: Nursing Learning Topic: SURVIVAL SKILLS: Complication Prevention Symptom Management Patient Evaluation: Verbalizes understanding: Yes Supplemental Material Given: Written Material Instructed By Brisa Nieto RN In Department Urology . [facility] in [facility] History of Present illness Narrative* Becky [...] 2023 TIME: 12:36 PM documented in [facility] Procedure [facility]05-27-2023 NotePROCEDURE: US KIDNEYS BLADDER DATE: 11/22/2022 [...] Electronically authenticated by: ALENA SHANNON Date: 2022-11-22 16:50[facility]04-25-[facility] History of Present illness Narrative* Blanche Naranjo [...] scope Nanci Carvajal MD documented in this encounterSt[facility] Nurse Note* Blanche Naranjo Ma - 10/21/2022 3:02 PM EDT Actual procedure/procedure scheduled: Yes Performing provider/scheduled provider: Yes Patient was roomed in: Q9- 08 Instrument Repair Specialist offered:Patient declines Patient arrived in the room [...] Education Session: None Instruction Provided To: Patient Eligibility Services Representative Present: not applicable Discipline: Nursing Learning Topic: SURVIVAL SKILLS: Symptom Management Patient Evaluation: Verbalizes understanding: Yes Supplemental Material Given: Written Material Instructed By Blanche Naranjo Ma In Department Urology . documented in [facility] encounterSt[facility]-2023 Miscellaneous Notes* Telephone Encounter - Nanci Carvajal MD - 07/16/2022 4:23 PM EST July 16, 2022 4:23 PM Called patient to discuss urine cytology results. Discussed results as in epic. Recommended repeat cystoscopy 3 months. All questions answered. Nanci Carvajal MD documented in this encounterSt[facility]-10-[facility] History of Present illness Narrative* Natalee [...] months Nanci Carvajal MD documented in this encounterSt[facility]01-10-2023 Nurse Note* Natalee Garcia RN - [...] Education Session: None Instruction Provided To: Patient Eligibility Services Representative Present: not applicable Discipline: Nursing Learning Topic: SURVIVAL SKILLS: Complication Prevention Patient Evaluation: Verbalizes understanding: Yes Supplemental Material Given: Written Material Instructed By Rommel Garcia RN In Department Urology . documented in this encounterSt[facility]11-23-2022 Evaluation note* Encounter Date Diagnosis Assessment Notes Treatment Notes Treatment Clinical Notes Apr, Esophageal diverticulum (ICD-10 - Q39.6) Apr, Dysphagia (ICD-10 - R13.10) Patient to call if symptoms worsen or return Continue Omeprazole Follow up 1 year [facility] Other 11-17-2022 Miscellaneous Notes* Allied Health - [...] 2022 TIME: 8:28 AM documented in this encounterSt[facility]11-04-2022 Miscellaneous Notes* Telephone Encounter - Nanci Carvajal [...] this. All questions answered. documented in this encounterSt. [facility]10-24-2022 Miscellaneous Notes* Telephone Encounter - Hallie [...] verbalized understanding. All questions answered. Hallie Matson virtualization consultant Nurse Department of Urology [facility] documented in this encounterSt. [facility]10-04-2022 History of Present illness Narrative* Nanci [...] applicable. Ameena Stewart RN documented in this encounterSt. [facility]10-04-2022 Nurse Note* Ameena Stewart RN - [...] None Instruction Provided To: Patient and Spouse Eligibility Services Representative Present: not applicable Discipline: Nursing Learning Topic: SURVIVAL SKILLS: Symptom Management Patient Evaluation: Verbalizes understanding: Yes Supplemental Material Given: Written Material Instructed By Ameena Stewart RN In Department Urology . documented in this encounterSt. [facility]06-08-2022 Evaluation note* Encounter Date Diagnosis Assessment Notes Treatment Notes Treatment Clinical Notes Nov, Esophageal diverticulum (ICD-10 - Q39.6) REASSURANCE IF SYMPTOMS RETURN PT TO CALL FOR ESOPHAGEAL MANOMETRY AND REPEAT EGD WITH DILATION DECREASE AMITRYPTYLINE TO ONCE DAILY F/U HERE 3 MONTHS [facility] Other 05-10-2022 Miscellaneous Notes* Telephone Encounter - Bing Schmitt RN - 11/05/2021 2:17 PM EDT Left a message on the cell voicemail concerning 11/07 appt to Urol nurse. documented in this encounterSt. [facility]04-28-2022 History of Present illness Narrative* Eze [...] well. Eze Carreon RN documented in this encounterSt. [facility]03-25-2022 Miscellaneous Notes* Telephone Encounter - Nanci [...] answered. Nanci Carvajal MD documented in this encounterSt. [facility]06-01-2021 History of Present illness Narrative* Viau, Jose Francisco Forman MD - 11/27/2020 11:28 AM EDT [facility] [address] ([address]) [facility] [address] [facility] [id number] Timur Francisco is a 69 y.o. male [...] if symptoms worsen or fail to improve. Jose Francisco Villalpando MD documented in this [id number] History of Present illness Narrative* Darlene Calderon [...] speak with Dr. Villalpando. [facility]* Diagnosis Spinal stenosis of lumbar region without neurogenic claudication- Primary Lumbar degenerative disc disease documented in this encounter [facility] note* Diagnosis Right hip pain Pain in joint, pelvic region and thigh documented in this encounter [employer] Phone: evaluation note* Diagnosis Malignant neoplasm of urinary bladder, unspecified site (HCC)- Primary [facility] Diagnosis Viral upper respiratory tract infection with cough Acute upper respiratory infections of unspecified site documented in this encounter [employer] Phone: evaluation note* Diagnosis History of bladder cancer- Primary Personal history of malignant neoplasm of bladder Malignant neoplasm of urinary bladder, unspecified site (HCC) documented in this encounter [facility] note* Diagnosis Suspected UTI- Primary documented in this encounter [facility] note* Diagnosis Malignant neoplasm of urinary bladder, unspecified site (HCC)- Primary Abnormal urine cytology Other nonspecific finding on examination of urine [facility] noteNo assessment information availableW[facility] Work Phone: evaluasmdm note* Diagnosis Encounter for follow-up surveillance of bladder cancer- Primary Unspecified follow-up examination documented in this encounter [facility] note* Diagnosis Encounter for follow-up surveillance of bladder cancer- Primary Unspecified follow-up examination History of bladder cancer Personal history of malignant neoplasm of bladder documented in this encounter [facility] noteNo InformationNort [employer] Other Evaluation note* Diagnosis Malignant neoplasm of urinary bladder, unspecified site (HCC) History of bladder cancer Personal history of malignant neoplasm of bladder documented in this encounter [facility] note* Diagnosis Onset Date Resolution Status Dysphagia acute [facility] Work Phone: evaluation note* Diagnosis Encounter for follow-up surveillance of bladder cancer- Primary Unspecified follow-up examination History of bladder cancer Personal history of malignant neoplasm of bladder documented in this encounter [facility] note* Diagnosis Malignant neoplasm of urinary bladder, unspecified site (HCC) documented in this encounter [facility] note* Diagnosis Pre-operative examination- Primary Unspecified pre-operative examination Traction detachment of right retina Traction detachment of retina Rheumatoid arthritis, involving unspecified site, unspecified whether rheumatoid factor present (HCC) Essential (primary) hypertension Unspecified essential hypertension Gastroesophageal reflux disease, unspecified whether esophagitis present JOHNATHON (obstructive sleep apnea) Obstructive sleep apnea (adult) (pediatric) documented in this encounter [facility] note* Diagnosis Encounter for follow-up surveillance of bladder cancer- Primary Unspecified follow-up examination History of bladder cancer Personal history of malignant neoplasm of bladder documented in this encounter [facility] note* Diagnosis Encounter for follow-up surveillance of bladder cancer- Primary Unspecified follow-up examination History of bladder cancer Personal history of malignant neoplasm of bladder documented in this encounter [facility] note* Diagnosis Intermittent chest pain Chest pain, unspecified documented in this encounter [facility] note* Diagnosis Chest pain, unspecified type documented in this encounter [facility] note* Diagnosis Other atopic dermatitis- Primary Actinic keratosis Rash and other nonspecific skin eruption documented in this encounter [facility] N[facility]ative - Reported* Type Description Date Surgical History CHOLECYSTECTOMY Surgical History APPENDECTOMOY Surgical History HERNIA REPAIR [facility] Other Hospital Discharge instructions Additional Instructions DISCHARGE [...] if you have any problems. -Office number [phone] Work Phone: Reason for visit NarrativePT HERE AT REQUEST OF DR ROSALINA DE ANDA EVALUATION AND TREATMENT OF ESOPHAGEAL DIVERTICULUM / DYSPHAGIANorth [employer] Other Reason for visit Narrative* (Routine) - Open Specialty Diagnoses / Procedures Referred By Contac t Referred To Contact Cardiology Diagnoses Chest pain, unspecified type Intermittent chest pain Procedures Nuclear stress test with myocardial perfusion Danette Muniz, RUBBER SPLICER - GAME ARTIST [address] [address] Phone: tel:[phone] fax: Referral ID Status Reason Start Date Expiration Date Visits Re quested Visits Authorized [id number] Open 08/30/2024 08/30/2025 3 3 [employer] [facility] N[facility]ative* (Routine) - Open Specialty Diagnoses / Procedures Referred By Contac t Referred To Contact Cardiology Diagnoses Chest pain, unspecified type Intermittent chest pain Procedures Nuclear stress test with myocardial perfusion Danette Muniz, RUBBER SPLICER - GAME ARTIST [address] [id number] Phone: tel:[phone] fax: Referral ID Status Reason Start Date Expiration Date Visits Re quested Visits Authorized [id number] Open 08/30/2024 08/30/2025 3 3 [employer] Summary Purpose Family History No Family History Records Found Relationship Condition Age at Onset Recorded Date/T marjan Not Specified Cerebrovascular accident (CVA) Unknown brother Cerebrovascular accident (CVA) Unknown Relationship Condition Age at Onset Recorded Date/T marjan mother Cerebrovascular accident (CVA) Unknown brother Cerebrovascular accident (CVA) Unknown Advance Directives No Advanced Directives Records FoundDocuments on File Type Date Recorded Patient Global Consumer Sector Vice President Expl anation Advance Directives and Livin g Will 02/07/2020 3:27 PM Documents on File Type Date Recorded Patient [employer] Vice President Expl anation ACP-Advance Directive ACP-Power of Mail Teller Latest Code Status on File Code Status Date Activated Date Inactivated Comments Full Code 04/07/2013 1:10 PM 04/07/2013 6:05 PM Documents on File Type Date Recorded Patient [employer] Consumer [employer] Vice President Expl anation Advance Directives and Livin g Will 05/08/2020 3:27 PM Documents on File Type Date Recorded Patient [employer] Consumer [employer] Vice President Expl anation Advance Directives and Living Will 05/14/2020 12:00 AM NOT IN COMPUTER WITH [facility]. 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 President Expl anation Advance Directive(s) 05/14/2018 2:34 PM Documents on File Type Date Recorded Patient [employer] Consumer Sector Vice President Expl anation Advance Directive(s) 05/14/2018 2:34 PM Advance Directive Response Recorded Date/ Time Advance Directives No July 02, 2022 2:58pm Advance Directive Response Recorded Date/ Time Advance Directives No July 02, 2022 1:58pm Date Activated Date Inactivated Comments 04/07/2013 1:10 PM 04/07/2013 6:05 PM History of Present Illness * Jose Francisco Villalpando MD - 02/07/2020 3:55 PM EDT [facility] [address]) [facility] [address] [facility] [address] Timur Francisco is a 69 [...] standing walking are aggravating he has had transition of care specialist without improvement has been on uztk-vpd-pfnjeis medications without improvement he has had an [...] Return in about 4 weeks (around 03/06/2020). Jose Francisco Villalpando MD documented in this encounter* Shelley Cunningham, PT - 02/15/2020 3:00 PM EDT [facility] Outpatient Physical Therapy Evaluation Date: 02/15/2020 Patient: Timur Francisco : 1950 Referring Practitioner: Dr. Jose Francisco Villalpando Referral Date : 02/07/20 Diagnosis: Sprain [...] Medium Complexity History: as above Exam: Oswestry 1145 Clinical Presentation: Evolving The Following Comorbities will [...] proper posture and lifting following back education bed bug exterminator goals Time Frame for bed bug exterminator goals : 12 bed bug exterminator goal 1: Decrease pain back and legs 2/10 at worst x3 days snf goal 2: Improve functional mobility with Oswestry score < 8/45 Patient's Goal: Be rid of back pain Timed Code Treatment Minutes: 15 Minutes Total Treatment Time: 45 Time In: 15:05 Time Out: 15:50 Shelley Cunningham, PT Date: 02/15/2020 documented in this encounter* Linda Gardner - 02/21/2020 9:45 AM EDT [facility] Outpatient Physical Therapy Daily Note Date: 02/21/2020 Patient Name: Timur Francisco : 1950 (69 y.o.) Referring Practitioner: Dr. Jose Francisco Villalpando Referral Date : 02/07/20 Diagnosis: Sprain [...] proper posture and lifting following back education Typing Checker Goals - Time Frame for bed bug exterminator goals : 12 bed bug exterminator goal 1: Decrease pain back and legs 2/10 at worst x3 days snf goal 2: Improve functional mobility with Oswestry score < 8/45 Post Treatment Pain: 6/10 Time In: 0945 Time Out : 1020 Timed Code Treatment Minutes: 35 Minutes Total Treatment Time: 35 Minutes Linda Gardner CV RN Date: 02/21/2020 documented in this encounter* Linda Gardner - 02/23/2020 9:45 AM EDT [facility] Outpatient Physical Therapy Daily Note Date: 02/23/2020 Patient Name: Timur Francisco : 1950 (69 y.o.) Referring Practitioner: Dr. Jose Francisco Villalpando Referral Date : 02/07/20 Diagnosis: Sprain of ligament lumbosacral joint Treatment Diagnosis: Back Pain Onset Date: 02/07/20 PT Insurance Information: [employer]/ Medicare Total # of Visits Approved: 12 [...] proper posture and lifting following back education Typing Checker Goals - Time Frame for snf goals : 12 snf goal 1: Decrease pain back and legs 2/10 at worst x3 days bed bug exterminator goal 2: Improve functional mobility with Oswestry score < 8/45 Post Treatment Pain: 4/10 Time In: 0940 Time Out : 1015 Timed Code Treatment Minutes: 35 Minutes Total Treatment Time: 35 Minutes Linda Gardner CV RN Date: 02/23/2020 documented in this encounter* Linda Gardner - 02/28/2020 9:45 AM EDT [facility] Outpatient Physical Therapy Daily Note Date: 02/28/2020 Patient Name: Timur Francisco : 1950 (69 y.o.) Referring Practitioner: Dr. Jose Francisco Villalpando Referral Date : 02/07/20 Diagnosis: Sprain [...] proper posture and lifting following back education Alf Goals - Time Frame for bed bug exterminator goals : 12 snf goal 1: Decrease pain back and legs 2/10 at worst x3 days snf goal 2: Improve functional mobility with Oswestry score < 8/45 Post Treatment Pain: 10/10 Time In: 0945 Time Out : 1025 Timed Code Treatment Minutes: 40 Minutes Total Treatment Time: 40 Minutes Linda Gardner CV RN Date: 02/28/2020 documented in this encounter* Linda Gardner - 03/02/2020 10:30 AM EDT [facility] Outpatient Physical Therapy Daily Note Date: 03/02/2020 Patient Name: Timur Francisco : 1950 (69 y.o.) Referring Practitioner: Dr. Jose Francisco Villalpando Referral Date : 02/07/20 Diagnosis: Sprain [...] proper posture and lifting following back education Typing Checker Goals - Time Frame for snf goals : 12 bed bug exterminator goal 1: Decrease pain back and legs 2/10 at worst x3 days snf goal 2: Improve functional mobility with Oswestry score < 8/45 Post Treatment Pain: 6/10 Time In: 1030 Time Out : 1110 Timed Code Treatment Minutes: 40 Minutes Total Treatment Time: 40 Minutes Linda Gardner CV RN Date: 03/02/2020 documented in this encounter* Linda Gardner - 03/07/2020 9:45 AM EDT [facility] Outpatient Physical Therapy Daily Note Date: 03/07/2020 Patient Name: Timur Francisco : 1950 (69 y.o.) Referring Practitioner: Dr. Jose Francisco Villalpando Referral Date : 02/07/20 Diagnosis: Sprain [...] a creeper on the ground etc. 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 with good body mechanics [...] proper posture and lifting following back education-met Alf Goals - Time Frame for bed bug exterminator goals : 12 snf goal 1: Decrease pain back and legs 2/10 at worst x3 days snf goal 2: Improve functional mobility with Oswestry score < 8/45 Post Treatment Pain: 5/10 Time In: 0945 Time Out : 1025 Timed Code Treatment Minutes: 40 Minutes Total Treatment Time: 40 Minutes Linda Gardner CV RN Date: 03/07/2020 documented in this encounter* Shelley Cunningham, PT - 03/09/2020 9:45 AM EDT [facility] Outpatient Physical Therapy Daily Note Date: 03/09/2020 Patient Name: Timur Francisco : 1950 (69 y.o.) Referring Practitioner: Dr. 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/ Medicare Total # of Visits Approved: 12 [...] proper posture and lifting following back education-met Alf Goals - Time Frame for snf goals : 12 bed bug exterminator goal 1: Decrease pain back and legs 2/10 at worst x3 days snf goal 2: Improve functional mobility with Oswestry score < 8/45 Post Treatment Pain: 6/10 Time In: 9:48 Time Out : 10:28 Timed Code Treatment Minutes: 40 Minutes Total Treatment Time: 40 Minutes Shelley Cunningham, PT Date: 03/09/2020 documented in this encounter* Shelley Cunningham, PT - 03/14/2020 9:45 AM EDT [facility] Outpatient Physical Therapy Daily Note Date: 03/14/2020 Patient Name: Timur Francisco : 1950 (69 y.o.) Referring Practitioner: Dr. Jose Francisco Villalpando Referral Date : 02/07/20 Diagnosis: Sprain of ligament lumbosacral joint Treatment Diagnosis: Back Pain Onset Date: 02/07/20 PT Insurance Information: [employer]/ Medicare Total # of Visits Approved: 12 Per Physician Order Total # of Visits to Date: 8 Plan of Care/Certification Expiration Date: 03/28/20 Pre-Treatment Pain: 10/10 Assessment Assessment: Patient walking into PT with antalgic gait. Patient reports pain 10/10 in back ever since yesterday at [facility] for medical appointment. He reports he [...] proper posture and lifting following back education-met Typing Checker Goals - Time Frame for bed bug exterminator goals : 12 snf goal 1: Decrease pain back and legs 2/10 at worst x3 days snf goal 2: Improve functional mobility with Oswestry score < 8/45 Post Treatment Pain: 10/10 Time In: 9:45 Time Out : 10:15 Timed Code Treatment Minutes: 30 Minutes Total Treatment Time: 30 Minutes Shelley Cunningham, PT Date: 03/14/2020 documented in this encounter* Linda Breaux - 03/16/2020 9:45 AM EDT [facility] Date: 03/16/2020 Patient Name: Timur Francisco : 1950 Pt Cancelled Appt due to no reason. Linda Breaux Date: 03/16/2020 documented in this encounter* Jose Francisco Villalpando MD - 05/15/2020 1:39 PM EST [facility] [address] ([address]) [facility] [address] [facility] [phone] Timur Francisco is a 69 [...] and reduces to 2 mm with extension. Filp-ab-avmjewfz degenerative spondylosis and facet osteoarthropathy. DISC SPACES: [...] Return in about 2 weeks (around 05/29/2020). Jose Francisco Villalpando MD documented in this encounter* Jose Francisco Villalpando MD - 08/15/2020 11:13 AM EST Associated Order(s): Epidural Injection Post-Procedure Diagnose(s): Spondylolisthesis of lumbar region; Spinal stenosis of lumbar region without neurogenic claudication; Lumbar degenerative disc disease Epidural Injection Performed by: Jose Francisco Villalpando MD Authorized by: Jose Francisco Villalpando MD Medications: 120 mg triamcinolone acetonide 40 mg/mL Anesthetic used: Lidocaine 1% PF * Jose Francisco Villalpando MD - 08/15/2020 11:13 AM EST PROCEDURE NOTE Name: Timur Francisco Date of Procedure: @DATE@ Surgeon: Jose Francisco Villalpando MD Procedure Performed: Caudal Epidural Steroid [...] verified with Time Out Yes Procedures * Jose Francisco Villalpando MD - 08/15/2020 11:11 AM EST [facility] [address] ([address]) [facility] [address] [facility] [phone] Timur Fracnisco is a 69 y.o. male being seen [...] Return in about 3 months (around 11/12/2020). Jose Francisco Villalpando MD documented in this encounter* Jose Francisco Villalpando MD - 05/14/2020 11:26 AM EST [facility] [address] ([address]) [facility] [address] [facility] [phone] Timur Francisco is a 69 [...] if symptoms worsen or fail to improve. Jose Francisco Villalpando MD documented in this encounter* Darlene Calderon LPN - 05/14/2020 11:45 AM EST Per Nabila no prior [place] [address] REF#[id number]. documented in this encounter Assessments Diagnosis Back [...] chronicity Procedures MR Lumbar Spine Without Contrast Viau, Jose Francisco Forman MD [address] [place] [address] Specialty Diagnoses / Procedures Referred By Contac t Referred To Contact CT IMAGING Diagnoses Malignant neoplasm of urinary bladder, unspecified site (HCC) History of bladder cancer Procedures CT UROGRAM WO/W IVCON CT ABD & PELVIS W/O CONTRST 1+ BODY Nanci Dyer MD [address] [place] [address] Ct Imaging Referral ID Status Reason Start Date Expiration Date Visits Requested Visits Authorized [id number] Authorized Auto-Generat ed Referral 07/04/2022 05/03/2023 1 1 Specialty Diagnoses / Procedures Referred By Contac t Referred To Contact CT IMAGING Diagnoses Malignant neoplasm of urinary bladder, unspecified site (HCC) Procedures CT UROGRAM WO/W IVCON CT ABD & PELVIS W/O CONTRST 1+ BODY Nanci Dyer MD [address] [facility] [place] [address] Ct Imaging Referral ID Status Reason Start Date Expiration Date Visits Requested Visits Authorized [id number] Pending Review Auto-Generat ed Referral 05/02/2022 06/01/2023 1 1 Specialty Diagnoses / Procedures Referred By Contac t Referred To Contact CT IMAGING Diagnoses Malignant neoplasm of urinary bladder, unspecified site (HCC) History of bladder cancer Procedures CT UROGRAM WO/W IVCON CT ABD & PELVIS W/O CONTRST 1+ BODY Nanci Dyer MD [address] [place] [address] Ct Imaging [facility] Referral ID Status Reason Start Date Expiration Date V isits Requested Visits Authorized [id number] Closed Auto-Generate d Referral 07/04/2022 05/03/2023 1 1 Specialty Diagnoses / Procedures Referred By Contac t Referred To Contact CT IMAGING Diagnoses Malignant neoplasm of urinary bladder, unspecified site (HCC) Procedures CT UROGRAM WO/W IVCON CT ABD & PELVIS W/O CONTRST 1+ BODY Nanci Dyer MD [address] [place] [address] Ct Imaging [address] [address] Referral ID Status Reason Start Date Expiration Date V isits Requested Visits Authorized [id number] Closed Auto-Generate d Referral 05/28/2023 02/19/2024 1 1 Specialty Diagnoses / Procedures Referred By Contac t Referred To Contact CT IMAGING Diagnoses History of bladder cancer Procedures CT UROGRAM WO/W IVCON CT ABD & PELVIS W/WO CONTRST 1+ BODY Nanci Dyer MD [address] [place] [address] Ct Imaging [facility] Referral ID Status Reason Start Date Expiration Date Visits Requested Visits Authorized [id number] New Request Auto-Generat ed Referral 12/06/2024 07/07/2025 1 1 Specialty Diagnoses / Procedures Referred By Contac t Referred To Contact Cardiology Diagnoses Intermittent chest pain Procedures Exercise stress test Danette Muniz, RUBBER SPLICER - GAME ARTIST [address] [place] [address] Referral ID Status Reason Start Date Expiration Date V isits Requested Visits Authorized [id number] Pending Review 08/15/2024 08/15/2025 1 1 Medications Administered Section Inactive Administered [...] Z79.899 M05.79 Z79.899 Chief Complaint M05.79 Z79.899 Chief Complaint Admit Date FOOT PAIN August 30, 2024 11:5 3am Additional Source Comments (unrecognized sect ion and content) No Status Records FoundNo Status Records FoundNo Status Records FoundNo Status Records FoundNo Status Records FoundNo Status Records FoundNo Status Records FoundNo Status Records FoundNo Status Records Found INFORMATION SOURCE (unrecogn ized section and content) DATE CREATED AUTHOR 12/08/2019 [facility] DATE CREATED AUTHOR AUTHOR'S ORGANIZ ATION 05/18/2022 [facility] DATE CREATED AUTHOR AUTHOR'S ORGANIZ ATION 12/05/2022 [facility] DATE CREATED AUTHOR AUTHOR'S ORGANIZ ATION 10/21/2023 [facility] DATE CREATED AUTHOR AUTHOR'S ORGANIZ ATION 06/13/2024 [facility] DATE CREATED AUTHOR AUTHOR'S ORGANIZ ATION 08/25/2024 [facility] DATE CREATED AUTHOR AUTHOR'S ORGANIZ ATION 09/12/2024 [facility] DATE CREATED AUTHOR AUTHOR'S ORGANIZ ATION 10/14/2024 [facility] DATE CREATED AUTHOR AUTHOR'S ORGANIZ ATION 11/09/2024 [facility] EPIC Reason for Visit (unrecogniz ed section and content) Reason Comments Pain Status Reason Specialty Diagnoses / Procedures Referred By Contact Referred To Contact Closed Orthopedic Surgery Diagnoses Back pain, unspecified back location, unspecified back pain laterality, unspecified chronicity Hemeyer, Edward J, MD [address] [place] [address] Jose Francisco Villalpando MD [address] [id number] Status Reason Specialty Diagnoses / Procedures Referre d By Contact Referred To Contact Closed Radiology Diagnoses Spondylolisthesis of lumbar region Back pain, unspecified back location, unspecified back pain laterality, unspecified chronicity Procedures MR Lumbar Spine Without Contrast Jose Francisco Villalpando MD [address] [id number] Reason Comments Back Pain Reason Comments Imaging Results MRI Pain Reason Comments Follow-up talk about epidural 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 Malignant neoplasm of urinary bladder, u nspecified site (HCC Reason Comments Appointment Cancelled Reason Comments Returning Patient's Call 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 Results Specialty Diagnoses / Procedures Referred By Contac t Referred To Contact CT IMAGING Diagnoses Malignant neoplasm of urinary bladder, unspecified site (HCC) History of bladder cancer Procedures CT UROGRAM WO/W IVCON CT ABD & PELVIS W/O CONTRST 1+ BODY Nanci Dyer MD [address] [place] [address] [place] [address] Referral ID Status Reason Start Date Expiration Date V isits Requested Visits Authorized [id number] Closed Auto-Generate d Referral 07/04/2022 05/03/2023 [address] Specialty Diagnoses / Procedures Referred By Contac t Referred To Contact CT IMAGING Diagnoses Malignant neoplasm of urinary bladder, unspecified site (HCC) Procedures CT UROGRAM WO/W IVCON CT ABD & PELVIS W/O CONTRST 1+ BODY Nanci Dyer MD [address] [place] [address] [place] [address] Referral ID Status Reason Start Date Expiration Date V isits Requested Visits Authorized [id number] Closed Auto-Generate d Referral 05/28/2023 02/19/2024 1 1 Reason Comments Perioperative Medical Evaluation H33.41 Reason Comments Cystoscopy-1 Reason Comments Cystoscopy-1 Specialty Diagnoses / Procedures Referred By Contearline t Referred To Contact Cardiology Diagnoses Intermittent chest pain Procedures Exercise stress test Danette Muniz, RUBBER SPLICER - GAME ARTIST [address] [place] [address] Referral ID Status Reason Start Date Expiration Date V isits Requested Visits Authorized [id number] Pending Review 08/15/2024 08/15/2025 1 1 Reason Comments Suspicious Skin Lesion Care Teams (unrecognized sec tion and content) News Wire Photo Operator Relationship Specialty Start Date End Date Isauro Poe MD [address] [place] [address] PCP - General 06/16/12 News Wire Photo Operator Relationship Specialty Start Date End Date Isauro Poe Horacio [address] [place] [address] (Fax) PCP - General Family Practice 11/04/18 Wai Matson Jr. [address] [place] [id number] Referring Urology 04/23/18 News Wire Photo Operator Relationship Specialty Start Date End Date Isauro Poe Horacio [address] [place] [address] (Fax) PCP - General Family Practice 11/04/18 Wai Matson Jr. [address] [place] [address] Referring Urology 04/23/18 News Wire Photo Operator Relationship Specialty Start Date End Date Isauro Poe Horacio [address] [place] [address] (Fax) PCP - General Family Practice 11/04/18 Wai Matson Jr. [address] [place] [address] Referring Urology 04/23/18 News Wire Photo Operator Relationship Specialty Start Date End Date Isauro Poe MD [address] [place] [address] (Fax) PCP - General Family Practice 11/04/18 Wai Matson Jr. [address] [place] [address] Referring Urology 04/23/18 News Wire Photo Operator Relationship Specialty Start Date End Date Isauro Poe MD [address] [place] [address] PCP - General 06/16/12 News Wire Photo Operator Relationship Specialty Start Date End Date Isauro Poe MD [address] [place] [address] (Fax) PCP - General Family Medicine 11/04/18 Wai Matson Jr. [address] [place] [address] Referring Urology 04/23/18 News Wire Photo Operator Relationship Specialty Start Date End Date Isauro Poe MD [address] [place] [address] (Fax) PCP - General Family Medicine 11/04/18 Wai Matson Jr. [address] [place] [address] Referring Urology 04/23/18 News Wire Photo Operator Relationship Specialty Start Date End Date Isauro Poe MD [address] [place] [address] (Fax) PCP - General Family Medicine 11/04/18 Wai Matson Jr. [address] [place] [address] Referring Urology 04/23/18 Team Status: Inactive Member Role Status Dates Zhou Fischer MD Attending Provider Active News Wire Photo Operator Relationship Specialty Start Date End Date Isauro Poe MD [address] [place] [address] (Fax) PCP - General Family Medicine 11/04/18 Wai Matson Jr. [address] [place] [address] Referring Urology 04/23/18 News Wire Photo Operator Relationship Specialty Start Date End Date Isauro Poe MD [address] [place] [address] (Fax) PCP - General Family Medicine 11/04/18 Wai Matson Jr. [address] [place] [address] Referring Urology 04/23/18 News Wire Photo Operator Relationship Specialty Start Date End Date Isauro Poe MD [address] [place] [address] (Fax) PCP - General Family Medicine 11/04/18 Wai Matson Jr. [address] [place] [address] Referring Urology 04/23/18 Team Status: Active Member Role Status Dates PHYSICIAN NO FAMILY Primary Care Provider Active Team Status: Inactive Member Role Status Dates PHYSICIAN NO FAMILY Primary Care Provider Active Zhou Fischer MD Attending Provider Active News Wire Photo Operator Relationship Specialty Start Date End Date Isauro Poe MD [address] [place] [address] (Fax) PCP - General Family Medicine 11/04/18 Wai Matson Jr. [address] [place] [address] Referring Urology 04/23/18 Team Status: Active Member Role Status Dates Danette Muniz NP-C Primary Care Provider Active Team Status: Inactive Member Role Status Dates Zhou Fischer MD Attending Provider Active Danette Muniz NP-C Primary Care Provider Active Team Status: Inactive Member Role Status Dates Danette Muniz NP-C Primary Care Provider Active Mundo Dang MD Attending Provider Active Team Status: Inactive Member Role Status Dates Danette Muniz NP-C Primary Care Provider Active Zhou Fischer MD Attending Provider Active [employer] Photo Operator Relationship Specialty Start Date End Date Isauro Poe MD [address] [place] [address] (Fax) PCP - General Family Medicine 11/04/18 Wai Matson Jr. [address] [place] [address] Referring Urology 04/23/18 [employer] Photo Operator Relationship Specialty Start Date End Date Isauro Poe MD [address] [place] [address] (Fax) PCP - General Family Medicine 11/04/18 Wai Matson Jr. [address] [place] [address] Referring Urology 04/23/18 Team Status: Inactive Member Role Status Dates Danette Muniz NP-C Primary Care Provider Active Start: May 06, 2023 End: May 06, 2023 Mundo Dang MD Attending Provider Active Start: May 06, 2023 End: May 06, 2023 Team Status: Inactive Member Role Status Dates NALINI Esteban Primary Care Provider Active Start: May 25, 2023 End: May 25, 2023 Zhou Fischer MD Attending Provider Active St art: May 25, 2023 End: May 25, 2023 Team Status: Inactive Member Role Status Dates NALINI Esteban Primary Care Provider Active Start: July 21, 2023 End: July 21, 2023 Zhou Fischer MD Attending Provider Active St art: July 21, 2023 End: July 21, 2023 [employer] Wire Photo Operator Relationship Specialty Start Date End Date Isauro Poe MD (Fax) PCP - General Family Medicine 02/07/20 Team Status: Inactive Member Role Status Dates Danette Muniz NP-C Primary Care Provider Active Start: October 29, 2023 End: October 29, 2023 Zhou Fischer MD Attending Provider Active St art: October 29, 2023 End: October 29, 2023 [employer] Photo Operator Relationship Specialty Start Date End Date Isauro Poe MD [address] [facility] [place] [address] PCP - General Family Medicine 11/04/18 Wai Matson Jr. [address] [place] [address] Referring Urology 04/23/18 Team Status: Inactive Member Role Status Dates Danette Muniz NP-C Primary Care Provider Active Start: December 28, [...] NALINI Esteban Primary Care Provider Active Start: May 02, 2024 End: May 02, 2024 Zhou Fischer MD Attending Provider Active St art: May 02, 2024 End: May 02, 2024 [employer] Wire Photo Operator Relationship Specialty Start Date End Date Isauro Poe MD [address] [place] [address] (Fax) PCP - General Family Medicine 11/04/18 Wai Matson Jr. [address] [facility] [place] [address] Referring Urology 04/23/18 [employer] Photo Operator Relationship Specialty Start Date End Date Unallocated, Noms MD Ant [address] [place] [address] PCP - General 01/28/23 [employer] Photo Operator Relationship Specialty Start Date End Date Isauro Poe MD (Fax) PCP - General 06/16/12 Team Status: Inactive Member Role Status Dates NALINI Esteban Primary Care Provider Active Start: August 30, 2024 End: August 30, 2024 Zhou Fischer MD Attending Provider Active St art: August 30, 2024 End: August 30, 2024 [employer] Wire Photo Operator Relationship Specialty Start Date End Date Isauro Poe MD (Fax) PCP - General 06/16/12 [employer] Photo Operator Relationship Specialty Start Date End Date Isauro Poe MD (Fax) PCP - General 06/16/12 [employer] Photo Operator Relationship Specialty Start Date End Date Isauro oPe MD (Fax) PCP - General 06/16/12 Team Status: Inactive Member Role Status Dates Danette Muniz , CLERK STENOGRAPHER-C Primary Care Provider Active Start: October 05, 2024 End: October 05, 2024 Zhou Fischer MD Attending Provider Active St art: October 05, 2024 End: October 05, 2024 [employer] Wire Photo Operator Relationship Specialty Start Date End Date Unallocated, Ronel Cain MD [address] [place] [address] PCP General 01/28/23 News Wire Photo Operator Relationship Specialty Start Date End Date Unallocated, [place] [address] [place] [id number] PCP - General 01/28/23 Source Comments (unrecognize d section and content) In the event this informatio n is protected by the [facility] Confidentiality of Alcohol and Drug Abuse Patient Records regulations: The Federal rules restrict any use of the information to criminally investigate or prosecute any alcohol or drug abuse patient.[facility] the event this information is protected by the Federal Confidentiality of Alcohol and Drug Abuse Patient Records regulations: The Federal rules restrict any use of the information to criminally investigate or prosecute any alcohol or drug abuse patient.[facility] the event this information is protected by the Federal Confidentiality of Alcohol and Drug Abuse Patient Records regulations: The Federal rules restrict any use of the information to criminally investigate or prosecute any alcohol or drug abuse patient.[facility] the event this information is protected by the Federal Confidentiality of Alcohol and Drug Abuse Patient Records regulations: The Federal rules restrict any use of the information to criminally investigate or prosecute any alcohol or drug abuse patient.[facility] the event this information is protected by the Federal Confidentiality of Alcohol and Drug Abuse Patient Records regulations: The Federal rules restrict any use of the information to criminally investigate or prosecute any alcohol or drug abuse patient.[facility] the event this information is protected by the Federal Confidentiality of Alcohol and Drug Abuse Patient Records regulations: The Federal rules restrict any use of the information to criminally investigate or prosecute any alcohol or drug abuse patient.[facility] the event this information is protected by the Federal Confidentiality of Alcohol and Drug Abuse Patient Records regulations: The Federal rules restrict any use of the information to criminally investigate or prosecute any alcohol or drug abuse patient.[facility] the event this information is protected by the Federal Confidentiality of Alcohol and Drug Abuse Patient Records regulations: The Federal rules restrict any use of the information to criminally investigate or prosecute any alcohol or drug abuse patient.[facility] the event this information is protected by the Federal Confidentiality of Alcohol and Drug Abuse Patient Records regulations: The Federal rules restrict any use of the information to criminally investigate or prosecute any alcohol or drug abuse patient.[facility] the event this information is protected by the Federal Confidentiality of Alcohol and Drug Abuse Patient Records regulations: The Federal rules restrict any use of the information to criminally investigate or prosecute any alcohol or drug abuse patient.[facility] the event this information is protected by the Federal Confidentiality of Alcohol and Drug Abuse Patient Records regulations: The Federal rules restrict any use of the information to criminally investigate or prosecute any alcohol or drug abuse patient.[facility] the event this information is protected by the Federal Confidentiality of Alcohol and Drug Abuse Patient Records regulations: The Federal rules restrict any use of the information to criminally investigate or prosecute any alcohol or drug abuse patient.[facility] the event this information is protected by the Federal Confidentiality of Alcohol and Drug Abuse Patient Records regulations: The Federal rules restrict any use of the information to criminally investigate or prosecute any alcohol or drug abuse patient.[facility] the event this information is protected by the Federal Confidentiality of Alcohol and Drug Abuse Patient Records regulations: The Federal rules restrict any use of the information to criminally investigate or prosecute any alcohol or drug abuse patient.[facility] the event this information is protected by the Federal Confidentiality of Alcohol and Drug Abuse Patient Records regulations: The Federal rules restrict any use of the information to criminally investigate or prosecute any alcohol or drug abuse patient.[facility] Goals (unrecognized section and content) Goals [...] BE BASED ON THE PRIMARY CLINICAL RECORDS. [facility]. provides no warranty or guarantee of the accuracy or completeness of information in this document.
[2024-12-03 09:08] LABS: Basophils Percent Auto 0.5 % (0.2-2.0); Eosinophils Absolute Auto 0.1 10^3/uL (0.0-0.7); Eosinophils Percent Auto 2.9 % (0.9-7.0); Hematocrit 41.5 % (42.0-54.0); Hemoglobin 14.7 g/dL (14.0-18.0); Immature Granulocytes Abs Auto 0.01 10^3/uL (0.00-0.03); Immature Granulocytes Pct Auto 0.2 % (0.0-0.5); Lymphocytes Absolute Auto 1.2 10^3/uL (1.2-3.8); Lymphocytes Percent Auto 29.3 % (20.5-60.0); Mean Corpuscular HGB Conc 35.4 g/dL (29.9-35.2); Mean Corpuscular Hemoglobin 31.9 pg (25.9-34.0); Mean Platelet Volume 9.7 fL (9.5-13.5); Monocytes Absolute Auto 0.4 10^3/uL (0.3-0.8); Monocytes Percent Auto 9.1 % (1.7-12.0); Neutrophils Absolute Auto 2.4 10^3/uL (1.4-6.5); Platelet Count 292 10^3/uL (150-450); Red Blood Count 4.61 10^6/uL (4.70-6.10); Red Cell Distribution Width 13.6 % (11.0-15.0); White Blood Count 4.2 10^3/uL (4.0-11.0)
[2024-12-03 09:18] LABS: Estimated Average Glucose 114 mg/dL; Glycohemoglobin A1C 5.6 % (4.5-6.2)
[2024-12-03 10:04] LABS: Alanine Aminotransferase 38 U/L (16-63); Albumin Globulin Ratio 1.3; Alkaline Phosphatase 85 U/L (46-116); Aspartate Amino Transferase 32 U/L (15-37); BUN Creatinine Ratio 16.9; Calcium 9.1 mg/dL (8.5-10.1); Carbon Dioxide 30.1 mmol/L (21.0-32.0); Chloride 106 mmol/L (98-107); Estimated GFR (African America >60 (>=60 mL/min/1.73m^2); Estimated GFR (Non-African Ame >60 (>=60 mL/min/1.73m^2); Free T3 2.61 pg/mL (2.18-3.98); Glucose 102 mg/dL (74-106); Potassium 4.1 mmol/L (3.5-5.1); Sodium 144 mmol/L (136-145); Thyroid Stimulating Hormone 0.873 uIU/mL (0.358-3.740); Uric Acid 5.3 mg/dL (3.5-7.2)
[2024-12-03 10:18] LABS: Prostate Specific Antigen Scrn 0.34 ng/mL (<=4.00)
[2024-12-03 11:46] LABS: Chol HDL Ratio 3.1; Cholesterol 129 mg/dL (<=200); HDL Cholesterol 42 mg/dL (40-60); Triglycerides 95 mg/dL (<=150)
[2024-12-05 15:08] LABS: Insulin 11.3 uIU/mL (2.6-24.9)
== END 2024-12-03 08:33 | disposition home or self-care (01) ==
LOC: LAB 08:36
PROVIDERS: PCP Nurse Practitioner Family; Visit Provider Nurse Practitioner Family
DX: R53.83 Other fatigue (principal); I10 Essential (primary) hypertension; R73.09 Other abnormal glucose; Z12.5 Encounter for screening for malignant neoplasm of prostate
CPT/HCPCS: 36415; 80053; 80061; 83036; 83525; 84436; 84443; 84481; 84550; 85025; G0103

== ENCOUNTER 2024-12-28 09:30 | Outpatient (OUT) | payer MEDICARE, OTHER, SELFPAY ==
--- NOTE | 2024-12-28 10:03 | XR_ITS ---
The [address] [address] Patient Name: ARCELIA FRANCISCO MRN: [id number] date: 1950 Sex: M Assigned Patient Location: LAB Current Patient Location: LAB Accession/Order Number: [id number] Exam Date: 12/28/2024 11:03 Report Date: 12/28/2024 11:07 At the request of: VICKY PUGH MD Procedure: XR chest 2V PA AND LATERAL CHEST: CLINICAL HISTORY: Preoperative clearance. Hypertension and chest pain COMPARISON: 07/27/2020 chest x-ray and CT There is no focal parenchymal consolidation, effusion or pneumothorax. The cardiac, hilar and mediastinal silhouettes are within normal limits. There is no vascular congestion. The visualized bony thorax is intact. Slight levoscoliotic curvature and endplate spurring are seen at the spine. XR/XR chest 2V IMPRESSION: NO ACUTE CARDIOPULMONARY ABNORMALITY. Impression dictated by: Kandi Gutierrez M.D. 12/28/2024 11:07 AM Dictation Location: [place] [address] Electronically authenticated by: [id number] Y Date: 12/28/2024 11:07
[2024-12-28 10:15] LABS: Hematocrit 41.9 % (42.0-54.0); Hemoglobin 14.4 g/dL (14.0-18.0); Immature Granulocytes Abs Auto 0.01 10^3/uL (0.00-0.03); Immature Granulocytes Pct Auto 0.2 % (0.0-0.5); Lymphocytes Absolute Auto 1.3 10^3/uL (1.2-3.8); Mean Corpuscular HGB Conc 34.4 g/dL (29.9-35.2); Mean Corpuscular Hemoglobin 31.6 pg (25.9-34.0); Mean Corpuscular Volume 92.1 fL (80.0-94.0); Platelet Count 281 10^3/uL (150-450); Red Blood Count 4.55 10^6/uL (4.70-6.10); White Blood Count 5.3 10^3/uL (4.0-11.0)
--- NOTE | 2024-12-28 10:15 | ECG_ITS ---
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 Measurements Intervals [place] Rate: 58 P: 37 WV: 192 QRS: 1 QRSD: 90 T: 18 QT: 415 QTc: 411 Interpretive Statements SINUS BRADYCARDIA Otherwise normal ECG Compared to ECG 07/27/2020 06:04:08 No significant changes Electronically Signed On 12-29-2024 18:20:01 EDT by HUEY RODRIGUEZ M.D.
[2024-12-28 10:22] LABS: INR 1.01; Partial Thromboplastin Time 28.8 sec (22.3-36.2); Prothrombin Time 10.7 sec (9.0-11.6)
[2024-12-28 10:42] LABS: Anion Gap 11.7; Blood Urea Nitrogen 13.0 mg/dL (7.0-18.0); Calcium 9.1 mg/dL (8.5-10.1); Carbon Dioxide 29.6 mmol/L (21.0-32.0); Chloride 105 mmol/L (98-107); Estimated GFR (African America >60 (>=60 mL/min/1.73m^2); Estimated GFR (Non-African Ame >60 (>=60 mL/min/1.73m^2); Glucose 112 mg/dL (74-106); Potassium 4.3 mmol/L (3.5-5.1); Sodium 142 mmol/L (136-145)
== END 2024-12-28 09:31 | disposition home or self-care (01) ==
LOC: LAB 09:34
PROVIDERS: PCP Nurse Practitioner Family
DX: M48.061 Spinal stenosis, lumbar region without neurogenic claudication (principal)
CPT/HCPCS: 36415; 71046; 80048; 85025; 85610; 85730; 87081; 93005

== ENCOUNTER 2025-01-03 10:31 | Outpatient (OUT) | payer MEDICARE, OTHER, SELFPAY ==
--- OUTSIDE RECORDS SUMMARY | 2025-01-03 10:37 | XMS_ITS ---
Author Name Auto Generated Organization OHIP Support Name Relationship Address Phone [place], Dominique Next of Kin [address] [facility] [address] + [place], Zeferino Next of Kin [facility] [address] [facility] [place] [address] + NOLAN, DOMINIQUE Next of Kin Unknown [phone] NOLAN, DOMINIQUE Next of Kin Unknown [phone] Nolan, Dominique Next of Kin [address] [facility] [address] + Nolan, Zeferino Next of Kin [facility] [address] [facility] [place] [address] + NOLAN, DOMINIQUE Next of Kin Unknown [phone] [place], Dominique Next of Kin [address] [facility] [address] + [place], Zeferino Next of Kin [facility] [address] [facility] [place] [address] + Nolan, Dominique Next of Kin [address] [facility] [address] + Nolan, Zeferino Next of Kin [address] [facility] [place] [address] + NOLAN, DOMINIQUE Next of Kin Unknown [phone] Nolan, Dominique Next of Kin [address] [facility] [address] + Nolan, Zeferino Next of Kin [address] [facility] [place] [address] + [place], Dominique Next of Kin [address] [facility] [address] + Zeferino Francisco Next of Kin [address] [place] [address] + DOMINIQUE FRANCISCO Next of Kin Unknown [phone] DOMINIQUE FRANCISCO Next of Kin Unknown [phone] NOLAN, DOMINIQUE Next of Kin Unknown [phone] NOLAN, DOMINIQUE Next of Kin Unknown [phone] Care Team Providers Care Restoration Silversmith Name Role Phone ZEINAB LOMELI Attending Unavailable PETITTICRUZ Attending Unavailable PETITTAmber, CRUZ Limon Attending Unavailable POCPAGE, ZEINAB Limon Referring Unavailable POCPAGE, ZEINAB Limon Referring Unavailable POCPAGE, ZEINAB Limon Attending Unavailable Danette Spann Primary Care Unavailable HaladaZhou alicia Admitting Unavailable Haladay, Zhou Attending Unavailable Cristy, Danette Spear Primary Care Unavailable Zhou Fischer Admitting Unavailable Amado, Zhou Attending Unavailable Danette Spann Primary Care Unavailable Amado, Zhou Attending Unavailable Zhou Fischer Admitting Unavailable Charla Tamez Attending Unavailable Danette Spann Primary Care Unavailable Charla Tamez Admitting Unavailable Cristy, Danette Spear Primary Care Unavailable Zhou Fischer Admitting Unavailable Mitchadamaral, Zhou Attending Unavailable Danette Spann Admitting Unavailable Danette Spann Attending Unavailable NANCI CARVAJAL Attending Unavailable ISAURO POE Primary Care Unavailab NANCI Gruber Attending Unavailable ISAURO POE Primary Care Unavailab DIAMOND Good Referring Unava ilable DIAMOND GUEVARA Attending Unava ilable ISAURO POE Primary Care Unavailable CRISTY, DANETTE S Referring Unavailable HEMEYERISAURO Primary Care Unavailable CRISTY, DANETTE S Referring Unavailable HEMEISAURO MCDONALD Primary Care Unavailable CRISTY, DANETTE S Referring Unavailable HEMEISAURO MCDONALD Primary Care Unavailable HEMEHARRY, IASURO Christensen Primary Care Unavailable RCISTY, DANETTE S Referring Unavailable HEMEISAURO MCDONALD Primary Care Unavailable CRISTY, DANETTE S Referring Unavailable MELO ESCAMILLA Attending Unavailable PROBLEMS DATE TYPE CONDITION / CODE ATTENDING [facility] 12/29/2024 Admitting Diagnosis Encounter for other preprocedural examination / Z01.818(ICD-10) MELO ESCAMILLA Active [facility] 10/05/2024 Unknown Gout, unspecifie d / M10.9(ICD-10) Amado [facility] 08/30/2024 Unknown Pain in right fo ot / M79.671(ICD-10) [facility] 08/25/2024 Unknown Chest pain, unspecified / R07.9(ICD-10) NA Active [facility] 08/18/2024 Admitting diagnosis Diplopia / H53.2(ICD-10) DIAMOND GUEVARA [facility] 06/07/2024 Active Encounter for follow-up surveillance of bladder cancer / Z08(ICD-10) NANCI CARVAJAL [facility] 06/07/2024 Active Encounter for follow-up surveillance of bladder cancer / Z85.51(ICD-10) NANCI CARVAJAL [facility] 06/07/2024 Active History of bladd er cancer / Z85.51(ICD-10) NANCI CARVAJAL [facility] 05/02/2024 Unknown Rheumatoid arthr itis with rheumatoid factor of multiple sites without organ or systems involvement / M05.79(ICD-10) [facility] PROCEDURES No Procedure Records Found RESULTS PROGRESS Observed: 12/29/2024 2:45 PM Status: COMPLETED Source: [facility] Cardiology Clinic Note Chief Complaint: New patient here to establish care and surgery clearance. He will be having lumbar surgery with Dr. Ospina at [facility]. Scheduled for 01/10/2025. Had routine stress test, followed by nuclear stress test a few months ago at [facility] [place]. Routine labs with lipid panel were drawn in November 2024. Had a heart cath in 2008 at [facility]. EKG was done yesterday at [facility] for pre-op evaluation. Denies chest pain, but does endorse some SOB with stairs. HPI: Timur Francisco is a 73 y.o. male With a history of obstructive sleep apnea, rheumatoid arthritis, hypertension, gastroesophageal reflux disease and bladder cancer here for preoperative evaluation Social history: Used to smoke; quit years ago. Drinks alcohol socially. Family history: No known history of premature coronary artery disease. The patient has no exertional chest pain. He has shortness of breath if he climbs up and down 2 flights of stairs. This is unchanged. No orthopnea, no paroxysmal current dyspnea, no lower extremity edema. No history of coronary artery disease, prior myocardial infarction, congestive heart failure or significant arrhythmias. Cardiology ROS: Review of Systems Cardiovascular: Positive for dyspnea on exertion (with steps). Musculoskeletal: Positive for back pain. All other systems reviewed and are negative. Past Medical History He has no past medical history on file. Surgical History He has no past surgical history on file. Social History He has no history on file for tobacco use, alcohol use, and drug use. Family History Family History[1] Allergies Patient has no allergy information on record. Medications Current Medications[2] Last Recorded Vitals BP 113/72 (BP Location: Left arm, Patient Position: Sitting) Pulse 75 Ht 1.829 m (6') Wt 92.5 kg (204 lb) SpO2 95% BMI 27.67 kg/m??? Physical Examination: GENERAL: alert and oriented x3, well developed, in no acute distress. HEAD: atraumatic, normocephalic. EYES: NAKUL, EOMI. NECK: trachea midline, no JVD present, no carotid bruits present. CARDIAC: S1, S2 present. RRR. No murmur, rubs, or gallops. RESPIRATORY: CTAB, no increased effort of breathing, no rales, rhonchi, or wheezing. ABDOMEN: soft, nontender, nondistended. EXTREMITIES: no lower extremity edema, peripheral pulses are 2+ bilaterally. No rash/skin discoloration present. NEURO: strength/sensation equal and symmetric in bilateral upper and lower extremities. PSYCH: appropriate mood, affect, and judgement. Investigations: 12 lead EKG 12/28/2024 Sinus bradycardia, no significant ST-T wave abnormalities Nuclear stress test with myocardial perfusion Order: [id number] Narrative Stress Combined Conclusion: Normal pharmacological myocardial perfusion [...] was no increased lung uptake of the radiopharmaceutical. Perfusion Comments LV perfusion is normal. Perfusion [...] Scores: SDS Score: 0 Percentage Abnormal: 0.00% All Measurements Images on Order [id number] Retrieving Document This document is being retrieved from an outside organization. External Cardiology Imaging - Document on 09/07/2024 11:40 AM: Nuclear lexiscan stress test with myocardial perfusion Exam End: 09/07/24 13:05 Specimen Collected: 09/07/24 11:09 Last Resulted: 09/07/24 15:32 Assessment: Preoperative evaluation History of hypertension Bladder cancer Rheumatoid arthritis Exertional shortness of breath Plan: Given the patient's physical tolerance which is above 4 METS, absence of active cardiac disorders such as unstable angina, uncontrolled arrhythmias, or decompensated heart failure, as well as the risk of proposed spine surgery, he would be at acceptable low risk to proceed with surgery. Recommend strict heart rate and blood pressure control and avoidance of major fluid shifts. Aggressive cardiovascular factor modification is recommended. If an echocardiogram has not been performed recently, I would recommend 1 to assess diastology, right ventricular systolic pressure, valvular function and other potential causes for his exertional dyspnea Pulmonary function test may be reasonable in a patient with rheumatoid arthritis and exertional shortness of breath He can return to the office on an as-needed basis Melo Escamilla MD, MPH, FACC, [facility] Interventional Cardiology Pager Email: [email or web address] [1] No family history on file. [2] No current outpatient medications on file. OFFICE VISIT Observed: 12/29/2024 2:45 PM Status: COMPLETED Source: [facility] [id number] Timur Francisco 10/1950 Date Provider Department Center 12/29/2024 271-MELO ESCAMILLA CARD [facility] Family History Problem Relation Age of Onset Diabetes Mother Stroke Mother Family Status - Relation Status Age at Mother Level of Service:95652 [place] OFFICE/OUTPATIENT NEW MODERATE MDM 45 MINUTES CYTOLOGY NON-MAIN LINE ASSEMBLER Collected: 12/20/2024 1:59 PM Statu s: F Source: [facility] Order Comment: Specimen Type : URINE SPECIMEN Ordering Facility: [facility] [place] Address: [address] [place] [address] TYPE CODE TESTS RESULT OUT OF RANGE REFERENCE UNITS PATHOLOGY [id number] CASE REPORT Result Comment: Medical Cyto logy Report Case: [id number] Authorizing Provider: Nanci Carvajal MD Collected: 12/20/2024 01:59 PM Ordering Location: Urology Received: 12/20/2024 04:07 PM Pathologist: Tomás Andersen MD, PhD Specimen: Bladder PATHOLOGY [id number] FINAL DIAGNOSIS A - Bladder Result Comment: Suspicious f or high-grade urothelial carcinoma. at 1524 EDT PATHOLOGY [id number] GROSS DESCRIPTION A. Bladder Result Comment: 60 cc clear yellow fluid. ThinPrep prepared. PATHOLOGY CDX2 CLINICAL HISTORY Hx of bladder cancer PATHOLOGY [facility] FINAL PERFORMING LAB Result Comment: Technical co mponent, moving picture operator screening performed at: [facility], [address] [place] [address] CLIA: [id number] Diagnostic interpretation performed at: [facility], [address] [place] [address] CLIA# [id number] Layer Out Plate Glass: Reid Monteiro MD PATHOLOGY [id number] AP DISCLAIMER Result Comment: Laboratory D eveloped Test (LDT) Disclaimer: Performance characteristics of immunohistochemical, immunofluorescent, and chromogenic in-situ hybridization tests have been determined by the performing laboratory within [facility]'s Zhou Aragon Pathology and Laboratory Medicine Department ([facility], [facility], [facility], [facility], [facility], [facility], or [facility]) in a manner consistent with CLIA requirements. One or more of these tests may not have been cleared or approved by the FDA. [facility] is regulated under CLIA as qualified to perform high-complexity testing. These tests are used for clinical purposes. These should not be regarded as investigational or for research. Positive and negative controls stain appropriately. Performed By: #### [place] # ### [facility] CLIA [id number] [address] [place] Observed: 12/20/2024 1:20 PM Status: COMPLETED Source: [facility] Office Visit (UROSMN) TIMUR FRANCISCO ([id number]) 1950 M Date Time Provider Department 12/20/24 1:20 PM NANCI CARVAJAL During your visit today, we recorded the following information about you: Radha Yung RN 12/20/2024 2:07 PM Signed Patient ID with (2) Identifiers, Verified by: Radha Yung RN Actual procedure/procedure scheduled: Yes Performing provider/scheduled provider: Yes Patient was roomed in: Q9- 10 Edge Trimmer offered:Patient accepts, visit chaperoned by Patient arrived in the room at: 1308 Patient ready for procedure: 1318 The procedure started at ( Time Only): 1352 The procedure ended at: 1354 Was the procedure delayed: Yes: Provider late: Provider with other patient on Q9 ProNox Utilized: No The patient left the procedure room at: 1405 Radha Yung RN PRE PROCEDURE ASSESSMENT- Cysto Latex Allergy: No Allergies reviewed and updated. Yes Heart valve replacement: No Joint replacement: Yes Back Office UA otained: no PROCEDURE PREP-Cysto Patient Prep: Betadine Placement of Sterile Drape: COMPLETED Anesthetic Given:10 cc 2% Lidocaine jelly Radha Yung RN POST PROCEDURE NURSE ASSESSMENT Present along with physician during procedure exam. Radha Yung RN Current pain intensity is 0 on a 0-10 pain scale. Radha D [place], FARM SERVICE ADVISER PATIENT EDUCATION THE FOLLOWING WAS EVALUATED Motivation To Learn: Interested Family/Significant Other Support: High - Very involved in pt care Cognitive Ability: Alert/Oriented Method of Instruction: Individual instruction Written instruction/Handouts The Following Influencing Factors Were Barriers To This Education Session: None The Following Physical Limitations Were Barriers To This Education Session: None Instruction Provided To: Patient Honeycomb Blanket Maker Present: not applicable Discipline: Nursing Learning Topic: SURVIVAL SKILLS: Complication Prevention Patient Evaluation: Verbalizes understanding: Yes Supplemental Material Given: Written Material Instructed By Radha Yung RN In Department Urology . UNIVERSAL PROTOCOL / SAFETY CHECKLIST Procedure to be Performed: Cystoscopy Sign In: A Moment of CARE was completed. Appropriate PPE (Personal Protective Equipment) worn by all providers involved with the procedure. Special equipment not required. Patient/Surrogate Stated/Verified: Patient name, Date of , Relevant allergies, and The intended procedure Time Out: Relevant labs, photos, and/or imaging studies have been reviewed. Intended patient and procedure match the source document(s) (e.g. consent, HANDP, associated studies [imaging, pathology]) match the intended patient and procedure. Consent obtained and matches the intended procedure. Yes. Correct side/site is not applicable. Medications required for this procedure are verified. Fire risk assessed and interventions discussed. Implants: are not applicable. Sign Out: Specimens are all correctly labeled and sent. All instruments, equipment, possible retained foreign bodies are accounted for. Yes. The post-procedure plan of care has been communicated to the patient or surrogate. Nanci Carvajal MD 12/20/2024 2:21 PM Signed PHYSICIANS NOTE: CYSTOSCOPY PROCEDURE: December 20, 2024 Sign In History and Physical Exam [...] YES Sign Out: Sign Out Discussion: Completed History Prior patient of Dr. 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/17/2018 (Trina) - path: CIS S/p BCG x6 S/p TURBT 11/03/2018 (Trina) - path: CIS S/p cystoscopy 02/02/2019 (Trina) S/p TURBT 12/07/2019 (Dorian) - path: benign s/p cystoscopy w/ cysview, bilateral ureteral washings and retrograde pyelography, and bladder and prostatic fossa biopsies on 07/25/2020 - path CIS S/p BCG x6, finishing 10/01/2020 S/p maintenance BCG, finishing 03/05/2021 Last cysto: 06/07/2024 Last Imagin06/02/2023 - neg Last cytology: 06/07/2024 - suspicious At last visit, recommended trial flomax Details of Procedure: After sterile prep and drape, the flexible cystoscope was placed through the urethra which was examined in its entirety. Urethral stricture: None The entire mucosa was examined. The scope was flexed in the dome of the bladder and used to look at the bladder in retroverted fashion. Findings: Normal UOs Multiple prior resection sites noted No mucosal lesions or papillary tumors +TUR defect Normal urethra The scope was removed with a repeat examination of the prostate and penile urethra done during removal. Plan - cytology - CT urogram 6 months - cystoscopy 6 months - discussed urinary symptoms - reports significant pepsi intake which he is trying to cut back on - will try this first rather than add additional medications Nanci Carvajal MD Allergies As of Date: 12/20/2024 Noted Allergy Reaction Demerol (MEPERIDINE (PF)) 05/29/2011 10 - Anaphylaxis Date Reviewed: 12/20/2024 Reviewed by: Radha Yung, RN - Fully Assessed Primary Visit Diagnosis:Encounter for follow-up surveillance of bladder cancer [Z08, Z85.51] Other Visit Diagnosis:History of bladder cancer [Z85.51] Order(s):[] lidocaine urojet 2 % 11 mL topical gel (GLYDO)Disp: Rfl: CYTOLOGY NON-MAIN LINE ASSEMBLER [ESD8796] Order #: [id number]. #:[id number] CT UROGRAM WO/W IVCON [[id number]] Order #: [id number] FUTURE iv contrast (will be provided with radiology test)CT Urogram WO/W Inject, intravenously, once for 1 [...] protocol in the CT contrast administration guidelines link.Disp: 1 eachRfl: 0 0.9 % sodium chloride (NACL 0.9%) infusionAdminister at rate defined per CT contrast administration specifications. To be provided with radiology test.Disp: 150 mLRfl: 0 CREATININE BLD [SQCRET] Order #: [id number] FUTURE Prescriptions as of 12/20/2024 - iv contrast (will be provided with radiology [...] in the CT contrast administration guidelines link. - 0.9 % sodium chloride (NACL 0.9%) infusion Administer at rate defined per CT contrast administration specifications. To be provided with radiology test. - tamsulosin (FLOMAX) 0.4 mg Take 1 capsule by mouth daily at bedtime. - METHOTREXATE ORAL Take 2.5 mg by mouth five times daily. - diclofen jpz-jgqiks-z-jane-ment (NUDROXIPAK DSDR-75) 75 mg-0.025 %- 25 %-6 % kit twice daily. Take diclofenac 1 tablet (75 mg) by mouth 2 daily. Apply capsaicin-methyl salicylate-menthol liquid topically to the affected area as directed (no more than 4 times per day). - hydrOXYchloroQUINE (PLAQUENIL) 200 mg tablet Take 200 mg by mouth twice daily. - amLODIPine (NORVASC) 10 mg tablet Take 10 mg by mouth once daily. - omeprazole (PRILOSEC) 20 mg capsule Take 20 mg by mouth once daily. - pyridoxine HCl, vitamin B6, (VITAMIN B-6 ORAL) Take 100 mg by mouth. - gluc najera/chondro najera A/vit C/Mn (GLUCOSAMINE 1500 COMPLEX ORAL) Take by mouth. - multivit-minerals/FA/lycopene (ONE-A-DAY MEN'S ORAL) Take by mouth. Problem List As Of Date 12/20/2024 Noted Resolved Malignant neoplasm of urinary bladder (HCC) [C6*05/11/2018 Microhematuria [R31.29] 05/11/2018 Bladder cancer (HCC) [C67.9] 05/11/2018 Deafness [H91.90] Acquired absence of other specified parts of di*04/14/2018 Benign prostatic hyperplasia with lower urinary*02/08/2018 Emphysema (subcutaneous) (surgical) resulting f*03/29/2018 Obstructive and reflux uropathy [N13.9] 04/08/2018 Pure hypercholesterolemia, unspecified [E78.00] 09/09/2018 Unspecified osteoarthritis, unspecified site [M*04/08/2018 Polyuria [R35.89] 04/08/2018 Prescriptions ordered this encounter Disp Refills Start End LIDOCAINE 2 % MUCOSAL JELLY IN APPLI* 12/20/2024 12/20/2024 Route: URETHRAL IV CONTRAST (RADIOLOGY PROCEDURE) - * 1 ea* 0 12/20/2024 12/21/2024 Class: In Office Sig: CT Urogram WO/W Inject, intravenously, once for [...] in the CT contrast administration guidelines link. SODIUM CHLORIDE 0.9 % INTRAVENOUS SO* 150 * 0 12/20/2024 12/20/2024 Class: In Office Sig: Administer at rate defined per CT contrast administration specifications. To be provided with radiology test. Medications Discontinued During This Encounter Prescriptions - clotrimazole (LOTRIMIN) 1 % external solution (Discontinued) Reported on 04/02/2021 - finasteride (PROSCAR) 5 mg tablet (Discontinued) Reported on 04/02/2021 - gemfibrozil (LOPID) 600 mg tablet (Discontinued) Reported on 04/02/2021 - losartan (COZAAR) 100 mg tablet (Discontinued) Take 100 mg by mouth once daily. - esngcedi-owhblxapg-bnajbfzkryuees (CORTISPORIN) otic solution (Discontinued) Reported on 04/02/2021 - predniSONE EC 5 mg Delayed Release Tab (Discontinued) Take 5 mg by mouth as needed. Letter Text Encounter Status:Closed by NANCI CARVAJAL on 12/20/24 PROGRESS Observed: 12/20/2024 1:20 PM Status: COMPLETED Source: [facility] HNO ID: [id number] Author: NANCI CARVAJAL MD Service: ? Author Type: Physician Type: Progress Notes Filed: 12/20/2024 14:21 Note Text: PHYSICIANS NOTE: CYSTOSCOPY PROCEDURE: December 20, 2024 Sign In History and Physical Exam [...] YES Sign Out: Sign Out Discussion: Completed History Prior patient of Dr. 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/17/2018 ([facility]ina) - path: CIS S/p BCG x6 S/p TURBT 11/03/2018 (Trina) - path: CIS S/p cystoscopy 02/02/2019 (Trina) S/p TURBT 12/07/2019 (Dorian) - path: benign s/p cystoscopy w/ cysview, bilateral ureteral washings and retrograde pyelography, and bladder and prostatic fossa biopsies on 07/25/2020 - path CIS S/p BCG x6, finishing 10/01/2020 S/p maintenance BCG, finishing 03/05/2021 Last cysto: 06/07/2024 Last Imagin06/02/2023 - neg Last cytology: 06/07/2024 - suspicious At last visit, recommended trial flomax Details of Procedure: After sterile prep and drape, the flexible cystoscope was placed through the urethra which was examined in its entirety. Urethral stricture: None The entire mucosa was examined. The scope was flexed in the dome of the bladder and used to look at the bladder in retroverted fashion. Findings: Normal UOs Multiple prior resection sites noted No mucosal lesions or papillary tumors +TUR defect Normal urethra The scope was removed with a repeat examination of the prostate and penile urethra done during removal. Plan - cytology - CT urogram 6 months - cystoscopy 6 months - discussed urinary symptoms - reports significant pepsi intake which he is trying to cut back on - will try this first rather than add additional medications Nanci Carvajal MD PROGRESS Observed: 12/20/2024 1:03 PM Status: COMPLETED Source: [facility] HNO ID: [id number] Author: RADHA YUNG RN Service: ? Author Type: Registered Nurse Type: Progress Notes Filed: 12/20/2024 14:07 Note Text: Patient ID with (2) Identifiers, Verified by: Radha Yung RN Actual procedure/procedure scheduled: Yes Performing provider/scheduled provider: Yes Patient was roomed in: Q9- 10 Edge Trimmer offered:Patient accepts, visit chaperoned by Patient arrived in the room at: 1308 Patient ready for procedure: 1318 The procedure started at ( Time Only): 1352 The procedure ended at: 1354 Was the procedure delayed: Yes: Provider late: Provider with other patient on Q9 ProNox Utilized: No The patient left the procedure room at: 1405 Radha Yung RN PRE PROCEDURE ASSESSMENT- Cysto Latex Allergy: No Allergies reviewed and updated. Yes Heart valve replacement: No Joint replacement: Yes Back Office UA otained: no PROCEDURE PREP-Cysto Patient Prep: Betadine Placement of Sterile Drape: COMPLETED Anesthetic Given:10 cc 2% Lidocaine jelly Radha Yung RN POST PROCEDURE NURSE ASSESSMENT Present along with physician during procedure exam. Radha uYng RN Current pain intensity is 0 on a 0-10 pain scale. Radha Yung RN AMBULATORY PATIENT EDUCATION THE FOLLOWING WAS EVALUATED Motivation To Learn: Interested Family/Significant Other Support: High - Very involved in pt care Cognitive Ability: Alert/Oriented Method of Instruction: Individual instruction Written instruction/Handouts The Following Influencing Factors Were Barriers To This Education Session: None The Following Physical Limitations Were Barriers To This Education Session: None Instruction Provided To: Patient Honeycomb Blanket Maker Present: not applicable Discipline: Nursing Learning Topic: SURVIVAL SKILLS: Complication Prevention Patient Evaluation: Verbalizes understanding: Yes Supplemental Material Given: Written Material Instructed By Radha Yung RN In Department Urology . UNIVERSAL PROTOCOL / SAFETY CHECKLIST Procedure to be Performed: Cystoscopy Sign In: A Moment of CARE was completed. Appropriate PPE (Personal Protective Equipment) worn by all providers involved with the procedure. Special equipment not required. Patient/Surrogate Stated/Verified: Patient name, Date of , Relevant allergies, and The intended procedure Time Out: Relevant labs, photos, and/or imaging studies have been reviewed. Intended patient and procedure match the source document(s) (e.g. consent, HANDP, associated studies [imaging, pathology]) match the intended patient and procedure. Consent obtained and matches the intended procedure. Yes. Correct side/site is not applicable. Medications required for this procedure are verified. Fire risk assessed and interventions discussed. Implants: are not applicable. Sign Out: Specimens are all correctly labeled and sent. All instruments, equipment, possible retained foreign bodies are accounted for. Yes. The post-procedure plan of care has been communicated to the patient or surrogate. COMPREHENSIVE METABOLIC PANEL Collected: 12/13/2024 1 0:52 AM Status: F Source: [facility] TYPE CODE TESTS RESULT OUT OF RANGE REFERENCE UNITS LAB GLU Glucose 130 High 70-100 mg/dL Result Comment: Random Gluco se Reference Range is dependent on time and content of last meal. Glucose of more than 200 mg/dL in a nonstressed, ambulatory subject supports the diagnosis of Diabetes Mellitus. ADA recommended reference range LAB BUN Blood Urea Nitrogen 11 Normal 7-25 mg/d L LAB CREATT Creatinine 0.85 Normal 0.70-1.30 mg/dL LAB GFReNR Estimated GFR >60.0 LAB NA Sodium 140 Normal 136-145 mmol/L LAB K Potassium 4.1 Normal 3.5-5.1 mmol/L LAB CL Chloride 104 Normal 98-107 mmol/L LAB CO2 Carbon Dioxide 30.4 Normal 21.0-31.0 mmol/L LAB GAP Anion Gap 9.7 Normal 6.0-15.0 LAB CA Calcium 9.1 Normal 8.6-10.3 mg/dL LAB TP Total Protein 6.6 Normal 6.4-8.9 g/dL LAB ALB Albumin Level 4.4 Normal 3.5-5.7 g/dL LAB GLOB Globulin 2.2 g/dL LAB AGRATIO Albumin/Globulin Ratio 2.0 LAB BILIT Bilirubin,Total 0.6 Normal 0.3-1.0 mg/dL LAB AST Aspartate Amino Transferase 18 Normal 13-39 U/L LAB ALT Alanine Aminotransferase 16 Normal 7-52 U/L LAB ALP Alkaline Phosphatase 79 Normal 34-104 U/L Result Comment: PERFORMED BY : [place] [address] PATHOLOGIST THIN FILM TECHNICIAN YOSEF KUMAR M.D. Performed By: #### CMP, CBC, ESR #### [address] COMPLETE BLOOD COUNT AUTO DIFF Collected: 12/13/2024 10:52 AM Status: F Source: [facility] TYPE CODE TESTS RESULT OUT OF RANGE REFERENCE UNITS LAB WBC White Blood Count 5.8 Normal 4.1-10.5 [CFU]/mL LAB UNWBC Uncorrected WBC 5.8 Normal 4.1-10.5 10*3/uL LAB RBC Red Blood Count 4.45 Normal 3.90-5.60 10*6/u L LAB HGB Hemoglobin 14.2 Normal 13.0-17.0 g/dL LAB HCT Hematocrit 40.9 Normal 38.8-50.0 % LAB MCV Mean Corpuscular Volume 92.0 Normal 83.5-101 fL LAB MCH Mean Corpuscular Hemoglobin 32.0 Normal 27.5-35.2 pg LAB MCHC Mean Corpuscular HGB Conc 34.8 Normal 32.5-35.6 g/dL LAB RDW Red Cell Distribution Width 14.3 Normal 12.0-14.8 % LAB PLT Platelet Count 304 Normal 150-450 10*3/uL LAB MPV Mean Platelet Volume 8.2 Normal 6.6-10.1 fL LAB NE% Neutrophils % (Auto) 65.1 . % LAB LY% Lymphocytes % (Auto) 25.2 . % LAB MO% Monocytes % (Auto) 7.4 . % LAB EO% Eosinophils % (Auto) 1.7 . % LAB BA% Basophils % (Auto) 0.6 . % LAB NRBC% NRBC% 0.1 Normal 0-0.5 /100{WBC} LAB NE# Neutrophils # (Auto) 3.8 Normal 1.8-7.7 10*3/uL LAB LY# Lymphocytes # (Auto) 1.5 Normal 1.00-4.8 10*3/uL LAB MO# Monocytes # (Auto) 0.4 Normal 0.0-0.8 10*3/uL LAB EO# Eosinophils # (Auto) 0.1 Normal 0.0-0.45 10*3/uL LAB BA# Basophils # (Auto) 0.0 Normal 0.0-0.2 10*3/uL Performed By: #### CMP, CBC, ESR #### [address] ERYTHROCYTE SEDIMENTATION RATE Collected: 12/13/2024 10:52 AM Status: F Source: [facility] TYPE CODE TESTS RESULT OUT OF RANGE REFERENCE UNITS LAB ESR Erythrocyte Sedimentation Rate 5 Normal 0-19 Result Comment: PERFORMED BY : [place] [address] PATHOLOGIST THIN FILM TECHNICIAN YOSEF KUMAR M.D. Performed By: #### CMP, CBC, ESR #### [address] ERYTHROCYTE SEDIMENTATION RATE Collected: 10/05/2024 11:58 AM Status: F Source: [facility] TYPE CODE TESTS RESULT OUT OF RANGE REFERENCE UNITS LAB ESR Erythrocyte Sedimentation Rate 3 Normal 0-19 Result Comment: PERFORMED BY : [place] [address] PATHOLOGIST THIN FILM TECHNICIAN BETY CATALAN M.D. Performed By: #### ESR, URIC , CRP #### [address] URIC ACID Collected: 11:58 AM Status: F Source: [facility] TYPE CODE TESTS RESULT OUT OF RANGE REFERENCE UNITS LAB URIC Uric Acid 5.4 Normal 4.4-7.6 mg/dL Performed By: #### ESR, URIC , CRP #### [place] [id number] [facility] C-REACTIVE PROTEIN Collected: 11:58 AM Status: F Source: [facility] TYPE CODE TESTS RESULT OUT OF RANGE REFERENCE UNITS LAB CRP C-Reactive Protein <0.5 Normal 0.0-0.5 mg/dL Result Comment: PERFORMED BY : [place] [address] PATHOLOGIST THIN FILM TECHNICIAN BETY CATALAN M.D. Performed By: #### ESR, URIC , CRP #### [facility] [address] [place], [place] [id number] [place] XR FOOT RT 2V Observed: 08/30/2024 3:19 PM Status: COMPLETED Source: [facility] Main [place] [address] [place] [address] XRay Report Signed Patient: Timur Francisco MR#: [id number] : 1950 Acct:[id number] Age/Sex: 73 / M ADM Date: 08/30/24 Loc: ICXD Room: Type: [facility] Attending Dr: Zhou Fischer MD Copies [...] Geronimo Jr., D.O.08/30/2024 3:20 PM Dictation Location: [place] [address] Transcribed By: [facility] 08/30/24 1520 Dictated By: Horacio Geronimo Jr, DO 08/30/24 1519 Signed By: <Electronically signed by Horacio Geronimo Jr, DO in OV> 08/30/24 1520 MR BRAIN WITH AND WITHOUT CONTRAST Observed: 08/18/2024 9:12 AM Status: F Source: [facility] Order Comment: PT/FAX Injury/Trauma or Illness?:Illness/Other How long have you had these symptoms (acute/chronic)?:Chronic Reason for exam?:Worsening double vision x 2 years Type of Exam?:Initial Additional signs and symptoms?:na EXAMINATION: MR BRAIN WITH AND WITHOUT CONTRAST HISTORY: Diplopia PT/FAX Injury/Trauma or Illness?:Illness/Other How long have you had these symptoms (acute/chronic)?:Chronic Reason for exam?:Worsening double vision x 2 years Type of Exam?:Initial H53.2 Diplopia PT/FAX Injury/Trauma or Illness?:Illness/Other TECHNIQUE: Multiplanar multiecho sequences were performed through [...] or abnormal enhancement within limitations study. 2. Vqxo-me-khsdpoob amount of chronic microvascular ischemic changes. Workstation ID: [id number] Dictated by: SHAW JULIAN on Sat Aug 20, 2024 11:56:56 AM EST Transcribed by: SHAW JULIAN on Sat Aug 20, 2024 11:56:56 AM EST Finalized by: SHAW JULIAN on Sat Aug 20, 2024 11:56:56 AM EST CYTOLOGY NON-MAIN LINE ASSEMBLER Collected: 4 2:18 PM Status: F Source: [facility] Order Comment: Specimen Type : URINE SPECIMEN Ordering Facility: [facility] Address: [address] [place] [address] TYPE CODE TESTS RESULT OUT OF RANGE REFERENCE UNITS PATHOLOGY [id number] CASE REPORT Result Comment: Medical Cyto logy Report Case: [id number] Authorizing Provider: Nanci Carvajal MD Collected: 06/07/2024 02:18 PM Ordering Location: Urology Received: 06/07/2024 08:24 PM Pathologist: Keiko Roque MD Specimen: Urine, Midstream PATHOLOGY [id number] FINAL DIAGNOSIS Result Comment: A - Urine, M idstream Suspicious for high-grade urothelial carcinoma (see comment). OLOGY [id number] DIAGNOSIS COMMENT The case was reviewed in consultation with Dr. Rachel Boone, who concurs. PATHOLOGY [id number] GROSS DESCRIPTION Result Comment: A. Urine, Mi dstream 100 cc clear yellow fluid. ThinPrep prepared. PATHOLOGY CDX2 CLINICAL HISTORY history of bladder canccer PATHOLOGY [facility] FINAL PERFORMING LAB Result Comment: Technical co mponent, moving picture operator screening performed at [facility], [address] [place] [address] CLIA# [id number] Diagnostic interpretation performed at [facility], [address] [place] [address] CLIA# [id number] Layer Out Plate Glass: Reid Monteiro M.D. Performed By: #### CYTONON # ### [facility] CLIA [id number] [address] [place] [address] [place] PROGRESS Observed: 06/07/2024 2:11 PM Status: COMPLETED Source: [facility] HNO ID: [id number] Author: NANCI CARVAJAL MD Service: ? Author [...] CT urogram 6 months Nanci Carvajal MD CNOV Observed: 06/07/2024 2:00 PM Status: COMPLETED Source: [facility] Office Visit (UROSMN) TIMUR FRANCISCO ([id number]) 1950 M Date Time Provider Department 06/07/24 2:00 PM NANCI CARVAJAL During your visit today, we recorded the following information about you: Gregorio Higgins RN 06/07/2024 2:17 PM Signed Patient ID with (2) Identifiers, Verified by: Gregorio Higgins RN Actual procedure/procedure scheduled: Yes Performing provider/scheduled provider: Yes Patient was roomed in: Q9- 06 Edge Trimmer offered:Patient declines Patient arrived in the room [...] Education Session: None Instruction Provided To: Patient Honeycomb Blanket Maker Present: not applicable Discipline: Nursing Learning Topic: [...] CT urogram 6 months Nanci Carvajal MD Allergies As of Date: 06/07/2024 Noted Allergy Reaction Demerol (MEPERIDINE (PF)) 05/29/2011 10 - Anaphylaxis Date Reviewed: 06/07/2024 Reviewed by: Gregorio Higgins RN - Fully Assessed Reason for Visit: Cystoscopy-1 [303] Primary Visit Diagnosis:Encounter for follow-up surveillance of bladder cancer [Z08, Z85.51] Other Visit Diagnosis:History of bladder cancer [Z85.51] Order(s):[] lidocaine urojet 2 % 11 mL topical gel (GLYDO)Disp: Rfl: tamsulosin (FLOMAX) 0.4 mgTake 1 capsule by mouth daily at bedtime.Disp: 90 capsuleRfl: 3 CYTOLOGY NON-MAIN LINE ASSEMBLER [[id number]] Order #: [id number]. #:[id number] CT UROGRAM WO/W IVCON [[id number]] Order #: [id number] FUTURE iv contrast (will be provided with radiology test)CT Urogram WO/W Inject, intravenously, once for 1 [...] protocol in the CT contrast administration guidelines link.Disp: 1 EachRfl: 0 0.9 % sodium chloride (NACL 0.9%) infusionAdminister at rate defined per CT contrast administration specifications. To be provided with radiology test.Disp: 150 mLRfl: 0 CREATININE BLD [SQCRET] Order #: [id number] FUTURE Prescriptions as of 06/07/2024 - tamsulosin (FLOMAX) 0.4 mg Take 1 capsule by mouth daily at bedtime. - iv contrast (will be provided with radiology [...] in the CT contrast administration guidelines link. - 0.9 % sodium chloride (NACL 0.9%) infusion Administer at rate defined per CT contrast administration specifications. To be provided with radiology test. - METHOTREXATE ORAL Take 2.5 mg by mouth five times daily. - diclofen rrj-faiiht-o-jane-ment (NUDROXIPAK DSDR-75) 75 mg-0.025 %- 25 %-6 % kit twice daily. Take diclofenac 1 tablet (75 mg) by mouth 2 daily. Apply capsaicin-methyl salicylate-menthol liquid topically to the affected area as directed (no more than 4 times per day). - hydrOXYchloroQUINE (PLAQUENIL) 200 mg tablet Take 200 mg by mouth twice daily. - predniSONE EC 5 mg Delayed Release Tab Take 5 mg by mouth as needed. - clotrimazole (LOTRIMIN) 1 % external solution - ukgxgdzg-vgcbfjhvg-mkdnwrittsbrsm (CORTISPORIN) otic solution - amLODIPine (NORVASC) 10 mg tablet Take 10 mg by mouth once daily. - omeprazole (PRILOSEC) 20 mg capsule Take 20 mg by mouth once daily. - pyridoxine HCl, vitamin B6, (VITAMIN B-6 ORAL) Take 100 mg by mouth. - finasteride (PROSCAR) 5 mg tablet Take 5 mg by mouth once daily. - gluc najera/chondro najera A/vit C/Mn (GLUCOSAMINE 1500 COMPLEX ORAL) Take by mouth. - losartan (COZAAR) 100 mg tablet Take 100 mg by mouth once daily. - gemfibrozil (LOPID) 600 mg tablet Take 600 mg by mouth once daily. - multivit-minerals/FA/lycopene (ONE-A-DAY MEN'S ORAL) Take by mouth. 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 IV CONTRAST (RADIOLOGY PROCEDURE) - * 1 Ea* 0 06/07/2024 06/08/2024 Class: In Office Sig: CT Urogram WO/W Inject, intravenously, once for [...] in the CT contrast administration guidelines link. SODIUM CHLORIDE 0.9 % INTRAVENOUS SO* 150 * 0 06/07/2024 06/07/2024 Class: In Office Sig: Administer at rate defined per CT contrast administration specifications. To be provided with radiology test. Letter Text Encounter Status:Closed by NANCI CARVAJAL on 06/07/24 PROGRESS Observed: 06/07/2024 1:56 PM Status: COMPLETED Source: [facility] HNO ID: [id number] Author: GREGORIO HIGGINS RN Service: ? Author Type: Registered Nurse Type: Progress Notes Filed: 06/07/2024 14:17 Note Text: Patient ID with (2) Identifiers, Verified by: Gregorio Higgins RN Actual procedure/procedure scheduled: Yes Performing provider/scheduled provider: Yes Patient was roomed in: Q9- 06 Edge Trimmer offered:Patient declines Patient arrived in the room at: 1352 Patient ready for procedure: 1403 The procedure started at ( Time Only): 1413 The procedure ended at: 1415 Was the procedure delayed: Yes: Room turn around/patient delay ProNox Utilized: No The patient left the procedure room at: 1425 MORE [place] PROCEDURE ASSESSMENT- Cysto Latex Allergy: No Allergies [...] is 0 on a 0-10 pain scale. ELLEN MaddoxULATORY PATIENT EDUCATION THE FOLLOWING WAS EVALUATED Motivation To Learn: Interested Family/Significant Other Support: None - Unavailable/disinterested Cognitive Ability: Alert/Oriented Method of Instruction: Individual instruction Written instruction/Handouts Verbal instruction The Following Influencing Factors Were Barriers To This Education Session: None The Following Physical Limitations Were Barriers To This Education Session: None Instruction Provided To: Patient Honeycomb Blanket Maker Present: not applicable Discipline: Nursing Learning Topic: [...] Visit completed when applicable. Gregorio Higgins RN HEPATIC PANEL Collected: 05/02/2024 11:56 AM Status: F Source: [facility] TYPE CODE TESTS RESULT OUT OF RANGE REFERENCE UNITS LAB TP Total Protein 6.7 Normal 6.4-8.9 g/dL LAB ALB Albumin Level 4.4 Normal 3.5-5.7 g/dL LAB GLOB Globulin 2.3 g/dL LAB AGRATIO Albumin/Globulin Ratio 1.9 LAB BILIT Bilirubin,Total 0.5 Normal 0.3-1.0 mg/dL LAB BILID Bilirubin,Direct 0.10 Normal 0.03-0.18 mg/dL LAB BILII Bilirubin,Indirect 0.4 mg/dL LAB AST Aspartate Amino Transferase 27 Normal 13-39 U/L LAB ALT Alanine Aminotransferase 32 Normal 7-52 U/L LAB ALP Alkaline Phosphatase 66 Normal 34-104 U/L Performed By: #### ESR, HEPA TIC, CREAT, CBC #### [facility] [address] [place] [address] CREATININE Collected: 11:56 AM Status: F Source: [facility] TYPE CODE TESTS RESULT OUT OF RANGE REFERENCE UNITS LAB CREATT Creatinine 0.79 Normal 0.70-1.30 mg/dL LAB GFReNR Estimated GFR > 60.0 Result Comment: PERFORMED BY : [place] [address] PATHOLOGIST THIN FILM TECHNICIAN LIZANDRO HOFF M.D. Performed By: #### ESR, HEPA TIC, CREAT, CBC #### [facility] [address] COMPLETE BLOOD COUNT AUTO DIFF Collected: 05/02/2024 11:56 AM Status: F Source: [facility] TYPE CODE TESTS RESULT OUT OF RANGE REFERENCE UNITS LAB WBC White Blood Count 5.3 Normal 4.1-10.5 10*3/uL LAB UNWBC Uncorrected WBC 5.3 Normal 4.1-10.5 10*3/uL LAB RBC Red Blood Count 4.56 Normal 3.90-5.60 LAB HGB Hemoglobin 14.6 Normal 13.0-17.0 g/dL LAB HCT Hematocrit 41.9 Normal 38.8-50.0 % LAB MCV Mean Corpuscular Volume 91.9 Normal 83.5-101 fL LAB MCH Mean Corpuscular Hemoglobin 31.9 Normal 27.5-35.2 pg LAB MCHC Mean Corpuscular HGB Conc 34.8 Normal 32.5-35.6 g/dL LAB RDW Red Cell Distribution Width 13.6 Normal 12.0-14.8 % LAB PLT Platelet Count 313 Normal 150-450 10*3/uL LAB MPV Mean Platelet Volume 8.4 Normal 6.6-10.1 fL LAB NE% Neutrophils % (Auto) 55.5 . % LAB LY% Lymphocytes % (Auto) 29.9 . % LAB MO% Monocytes % (Auto) 11.5 . % LAB EO% Eosinophils % (Auto) 2.4 . % LAB BA% Basophils % (Auto) 0.7 . % LAB NRBC% NRBC% 0.2 Normal 0-0.5 /100{WBC} LAB NE# Neutrophils # (Auto) 3.0 Normal 1.8-7.7 10*3/uL LAB LY# Lymphocytes # (Auto) 1.6 Normal 1.00-4.8 10*3/uL LAB MO# Monocytes # (Auto) 0.6 Normal 0.0-0.8 10*3/uL LAB EO# Eosinophils # (Auto) 0.1 Normal 0.0-0.45 10*3/uL LAB BA# Basophils # (Auto) 0.0 Normal 0.0-0.2 10*3/uL Performed By: #### ESR, HEPA TIC, CREAT, CBC #### [address] ERYTHROCYTE SEDIMENTATION RATE Collected: 05/02/2024 11:56 AM Status: F Source: [facility] TYPE CODE TESTS RESULT OUT OF RANGE REFERENCE UNITS LAB ESR Erythrocyte Sedimentation Rate 7 Normal 0-19 Result Comment: PERFORMED BY : [place] [address] PATHOLOGIST THIN FILM TECHNICIAN LIZANDRO HOFF M.D. Performed By: #### ESR, HEPA TIC, CREAT, CBC #### [address] HEPATIC PANEL Collected: 03/16/2024 11:44 AM Status: F Source: [facility] TYPE CODE TESTS RESULT OUT OF RANGE REFERENCE UNITS LAB TP Total Protein 6.4 Normal 6.4-8.9 g/dL LAB ALB Albumin Level 4.3 Normal 3.5-5.7 g/dL LAB GLOB Globulin 2.1 g/dL LAB AGRATIO Albumin/Globulin Ratio 2.0 LAB BILIT Bilirubin,Total 0.7 Normal 0.3-1.0 mg/dL LAB BILID Bilirubin,Direct 0.10 Normal 0.03-0.18 mg/dL LAB BILII Bilirubin,Indirect 0.6 mg/dL LAB AST Aspartate Amino Transferase 20 Normal 13-39 U/L LAB ALT Alanine Aminotransferase 21 Normal 7-52 U/L LAB ALP Alkaline Phosphatase 70 Normal 34-104 U/L Performed By: #### HEPATIC, CREAT, CBC, ESR #### [address] CREATININE Collected: 11:44 AM Status: F Source: [facility] TYPE CODE TESTS RESULT OUT OF RANGE REFERENCE UNITS LAB CREATT Creatinine 0.85 Normal 0.70-1.30 mg/dL LAB GFReNR Estimated GFR > 60.0 Result Comment: PERFORMED BY : [facility] [address] [facility] [address] PATHOLOGIST THIN FILM TECHNICIAN LIZANDRO HOFF M.D. Performed By: #### HEPATIC, CREAT, CBC, ESR #### [facility] [address] [place] [id number] [facility] COMPLETE BLOOD COUNT AUTO DIFF Collected: 03/16/2024 11:44 AM Status: F Source: [facility] TYPE CODE TESTS RESULT OUT OF RANGE REFERENCE UNITS LAB WBC White Blood Count 4.6 Normal 4.1-10.5 10*3/uL LAB UNWBC Uncorrected WBC 4.6 Normal 4.1-10.5 10*3/uL LAB RBC Red Blood Count 4.50 Normal 3.90-5.60 LAB HGB Hemoglobin 14.3 Normal 13.0-17.0 g/dL LAB HCT Hematocrit 42.1 Normal 38.8-50.0 % LAB MCV Mean Corpuscular Volume 93.5 Normal 83.5-101 fL LAB MCH Mean Corpuscular Hemoglobin 31.8 Normal 27.5-35.2 pg LAB MCHC Mean Corpuscular HGB Conc 34.0 Normal 32.5-35.6 g/dL LAB RDW Red Cell Distribution Width 13.9 Normal 12.0-14.8 % LAB PLT Platelet Count 290 Normal 150-450 10*3/uL LAB MPV Mean Platelet Volume 8.6 Normal 6.6-10.1 fL LAB NE% Neutrophils % (Auto) 50.3 . % LAB LY% Lymphocytes % (Auto) 36.9 . % LAB MO% Monocytes % (Auto) 9.1 . % LAB EO% Eosinophils % (Auto) 2.8 . % LAB BA% Basophils % (Auto) 0.9 . % LAB NRBC% NRBC% 0.1 Normal 0-0.5 /100{WBC} LAB NE# Neutrophils # (Auto) 2.3 Normal 1.8-7.7 10*3/uL LAB LY# Lymphocytes # (Auto) 1.7 Normal 1.00-4.8 10*3/uL LAB MO# Monocytes # (Auto) 0.4 Normal 0.0-0.8 10*3/uL LAB EO# Eosinophils # (Auto) 0.1 Normal 0.0-0.45 10*3/uL LAB BA# Basophils # (Auto) 0.0 Normal 0.0-0.2 10*3/uL Performed By: #### HEPATIC, CREAT, CBC, ESR #### [facility] [address] ERYTHROCYTE SEDIMENTATION RATE Collected: 03/16/2024 11:44 AM Status: F Source: [facility] TYPE CODE TESTS RESULT OUT OF RANGE REFERENCE UNITS LAB ESR Erythrocyte Sedimentation Rate 4 Normal 0-19 Result Comment: PERFORMED BY : [place] [address] PATHOLOGIST THIN FILM TECHNICIAN LIZANDRO HOFF M.D. Performed By: #### HEPATIC, CREAT, CBC, ESR #### [facility] [address] ALLERGIES DATE TYPE / CODE NAME / CODE REACTION SEVERITY SOURCE 07/21/2023 Drug Allergy/4160 79578(SNOMED CT) meperidine/[id number] 620(RXNORM) Unknown Reaction Unknown [facility] 05/29/2011 DRUG INGREDI/4195 78285(SNOMED CT) MEPERIDINE Anaphylaxis~Other [facility] 05/29/2011 DRUG/2103529 03(SNOMED CT) MEPERIDINE (PF) Anaphylaxis [facility] 05/29/2011 DRUG/1504593 03(SNOMED CT) MEPERIDINE (PF) ANAPHYLAXIS [facility] ENCOUNTERS ADMIT/DISCHARGE ACCOUNT NUMBER ADMITTING ENCOUNTER CLASS LOCATION SOURCE 01/03/2025/01/04/20 [id number] Danette Spann [facility] 12/29/2024/12/30/19 [id number] Ambulatory Building:[facility] 12/20/2024/12/21/19 [id number] [facility] 12/13/2024/12/14/19 [id number] Ambulatory Building:[facility] 12/13/2024/12/14/19 [id number] Charla Tamez [facility] 11/08/2024/11/09/19 25 [id number] Ambulatory Building:[facility] 10/05/2024/10/06/19 25 [id number] [facility] 09/07/2024/09/10/19 25 [id number] Ambulatory Building:[facility] 09/07/2024/09/10/19 25 [id number] Ambulatory Building:[facility] 09/07/2024/09/10/19 25 [id number] Ambulatory Building:[facility] 09/07/2024/09/10/19 25 [id number] Ambulatory Building:[facility] 08/30/2024/08/31/19 25 [id number] [facility] 08/25/2024/08/28/19 25 [id number] Ambulatory Building:[facility] 08/18/2024/08/18/19 25 [id number] Ambulatory Building:[address] 06/07/2024/06/07/20 24 [id number] [facility] 05/02/2024/05/02/20 24 [id number] [facility] 03/16/2024/03/16/20 24 [id number] [facility] 01/25/2024/01/25/20 24 [id number] Ambulatory Building:[facility] 01/25/2024/01/25/20 24 [id number] Ambulatory Building:[facility] 01/25/2024/01/25/20 24 [id number] Ambulatory Building:[facility] 01/18/2024/01/18/20 24 [id number] Ambulatory Building:[facility] EPIC PAYERS ENCOUNTER GUARANTOR PAYER SUBSCRIBER SOURCE 01/03/2025 Timur [address] [place] [address]Agy: (HP) Primary Insurance:Self PayPolicy Number: Effective Date:2025-01-03 [facility]/2024 Primary Insurance:MEDICAREPolic y Number: [id number] Date:4578-48-28Ftsa Name:Medicare DENNIS R ENDERSDOB: [id number] [facility] [place] [address] [facility] 12/29/2024 Secondary Insurance:MUTUAL OF [place]olicy Number: [id number] Date:2022-02-27 TIMUR FRANCISCODOB: [id number] [address] [facility]07 [facility] 12/20/2024 Primary Insurance:MEDICARE A AND BPolicy Number: [id number] Date:1498-03-33Ehsr Name:Kori FRANCISCOB: [id number] [address] [facility], [facility]07 [facility] 12/20/2024 Secondary Insurance:[place] MEDICARE SUPPLEMENTPolicy Number: [id number] Date:6925-40-52Ubur Name:Nury TIMUR Faina NOLANDOB: [id number] [facility] [place] [address] [facility] 12/13/2024 TIMUR FARNCISCODOB: [place] [address]Yzy: (HP) Primary Insurance:MEDICAREPolic y Number: [id number] Date:4048-91-47Okns Name:Medicare DENNIS R ENDERSDOB: [id number] [facility] [place] [address] [facility] 12/13/2024 Secondary Insurance:MUTUAL OF [place]icy Number: [id number] Date:2021-06-29 TIMUR FRANCISCOB: [id number] [place] [address] [facility] 12/13/2024 [place] [address]Fit: (HP) Primary Insurance:MedicarePolic y Number: [id number] Date:2024-12-13 Timur FranciscoB: [id number] [place] [address]Pvr: (HP) [facility] 12/13/2024 Secondary Insurance:[place] of [place]Policy Number: [id number] Date:2024-12-13 Timur FranciscoB: [id number] [place] [address]Fpe: (HP) [facility] 12/13/2024 Tertiary Insuran ce:Self PayPolicy Number: Effective Date:2024-12-13 [facility]2024 TIMUR FRANCISCOB: [place] [address]Upf: (HP) Primary Insurance:MEDICAREPolic y Number: [id number] Date:0544-98-84Tmbr Name:Medicare TIMUR FRANCISCOB: [id number] [place] [address] [facility] 11/08/2024 Secondary Insurance:MUTUAL OF [place] Number: [id number] Date:2021-06-29 TIMUR Faina CRAWFORDBRADLEYB: [id number] [place] [address] [facility] 10/05/2024 Timur Eisen[place] [address]Cbq: (HP) Primary Insurance:MedicarePolic y Number: [id number] Date:2024-10-05 Timur CrawfordersDOB: [id number] [address] [facility] [place] [address]Wke: (HP) [facility] 10/05/2024 Secondary Insurance:[place] of DariaNicolasamaral Number: [id number] Date:2024-10-05 Timur CrawfordersDOB: [id number] [place] [address]Uem: (HP) [facility] 10/05/2024 Tertiary Insuran ce:Self PayPolicy Number: Effective Date:2024-10-05 [facility] 09/07/2024 TIMUR FRANCISCODOB: [facility] [place] [address]Wvm: (HP) Primary Insurance:MEDICAREPolic y Number: [id number] Date:4232-05-06Q[address] [address], [place] [address]CW: TIMUR CRAWFORDERSDOB: [id number] [facility] [place] [address]Rcd: () [facility] 09/07/2024 Secondary Insurance:[place] OF [place]cia Number: [id number] Date: [facility] [place]ENTERAshly [place] [address]DB: TIMUR CRAWFORDERSDOB: [id number] [facility] [address]Drs: () [facility] 09/07/2024 TIMUR CRAWFORDERSDOB: [facility] [address]Hvo: (HP) Primary Insurance:MEDICAREPolic y Number: [id number] Date:9906-12-67[address] [address], [place] [address]YT: TIMUR R ENDERSDOB: [id number] [facility] [address]Lwe: (HP) [facility] 09/07/2024 Secondary Insurance:[facility] Alycia Number: [id number] Date: [place] [address]AN: TIMUR Eisenberg ENDERSDOB: [id number] [address] [facility] [place] [address]Zrj: (HP) [facility] 09/07/2024 TIMUR Eisenberg ENDERSDOB: [facility] [place] [address]Rny: (HP) Primary Insurance:[facility] y Number: [id number] Date:[address] [address]DP: TIMUR Eisenberg ENDERSDOB: [id number] [address] [facility] [place] [address]Ozy: (HP) [facility] 09/07/2024 Secondary Insurance:[facility] Alycia Number: [id number] Date: [facility]ENTERASIA [place] [address]ZR: TIMUR Eisenberg ENDERSDOB: [id number] [address] [facility]Qep: (HP) [facility] 09/07/2024 TIMUR Eisenberg ENDERSDOB: [address] [facility] [address]Mws: (HP) Primary Insurance:MEDICAREPolic y Number: [id number] Date:2874-61-02ZS [address] [address], [place] [address]RA: TIMUR CRAWFORDERSDOB: [id number] [place] [address]Bcw: () [facility] 09/07/2024 Secondary Insurance:MUTUAL OF [facility] Hospitalmraal Number: [id number] Date: [facility] [place], [place] [address]DK: TIMUR FRANCISCODOB: [id number] [place] [address]Mlc: () [facility] 08/30/2024 [place] [address]Dfv: () Primary Insurance:MedicarePolic y Number: [id number] Date:2024-08-30 Timur FranciscoDOB: [id number] [place] [address]Fcj: () [facility] 08/30/2024 Secondary Insurance:[place] of [facility] Number: [id number] Date:2024-08-30 Timur FranciscoDOB: [id number] [place] [address]Frc: () [facility] 08/30/2024 Tertiary Insuran ce:Self PayPolicy Number: Effective Date:2024-08-30 [facility] 08/25/2024 TIMUR CRAWFORDERSDOB: [place] [address]Ecq: (HP) Primary Insurance:MEDICAREPolic y Number: [id number] Date:3126-63-65TGZACHARY CARROLL [address]FJ: TIMUR CRAWFORDERSDOB: [id number] [place] [address]Irr: (HP) [facility] 08/25/2024 Secondary Insurance:[facility] THIENCentra Bedford Memorial Hospitalmaral Number: [id number] Date: MUTUAL OF MELVI [place]NAN[place], [place] [address]GY: TIMUR CRAWFORDERSDOB: 0912-77-32EXP[address] [place] [address]Rgo: (HP) [facility] 08/18/2024 TIMUR Eisenberg ENDERSDOB: [facility] [address]Yzn: ~(8 67 (HP) Primary Insurance:MEDICAREPolic y Number: [id number] Date:1430-34-10YEA J15 PART A CLAIMSPO [address] [place] [address]UL: TIMUR [facility] HEALTHERSDOB: [id number] [place], [place] [address]Fde: (HP) [facility] 08/18/2024 Secondary Insurance:MEDICAREPolic y Number: [id number] Date:5659-93-89GNZ 15 PART A CLAIMSPO [id number] [place] [address]XK: TIMUR R SANTA FEDOB: [id number] [place], [place] [address]Dsm: (HP) [facility] 08/18/2024 Tertiary Insurance:COMMERCIALPol icy Number: [id number] Date:6994-72-06OMXVGI [place] [address]OD: TIMUR Eisenberg [facility] MEDICAL CENTERERSDOB: 8041-30-35IAF260 [address] [facility], [place] [address]Qsc: (HP) [facility] 06/07/2024 Primary Insurance:MEDICARE A AND BPolicy Number: [id number] Date:3486-79-40Notx Name:Kori CROSSB: [id number] [place] [address] [facility] 06/07/2024 Secondary Insurance:[place] MEDICARE SUPPLEMENTPolicy Number: [id number] Date:7108-72-44Ikrk Name:Nury CROSSB: [id number] [address] [place], [facility]07 [facility] 05/02/2024 [place] [address]Div: (HP) Primary Insurance:MedicarePolic y Number: [id number] Date:2024-05-02 Timur CrossB: [id number] [address], [facility]Fdb: () [facility] 05/02/2024 Secondary Insurance:[place] of [place]Policy Number: [id number] Date:2024-05-02 Timur CrossB: [id number] [place] [address]Cfc: () [facility] 05/02/2024 Tertiary Insuran ce:Self PayPolicy Number: Effective Date:2024-05-02 [facility] 03/16/2024 Timur [address], [facility]Pvp: (HP) Primary Insurance:MedicarePolic y Number: [id number] Date:2024-03-16 Timur CrossB: [id number], [facility]Tcw: (HP) [facility] 03/16/2024 Secondary Insurance:[place] of [place]Policy Number: [id number] Date:2024-03-16 Timur CrossB: [id number] [facility] [place] [address]Abk: (HP) [facility] 03/16/2024 Tertiary Insuran ce:Self PayPolicy Number: Effective Date:2024-03-16 NOT GIVENUNK [facility] 01/25/2024 TIMUR FRANCISCODOB: [address] [place] [address]Phj: (HP) Primary Insurance:MEDICAREPolic y Number: [id number] Date:4472-36-84Sosd Name:Medicare TIMUR CRAWFORDERSDOB: [id number] [address] [facility] [facility] 01/25/2024 Secondary Insurance:MUTUAL OF [facility] Number: [id number] Date:2021-06-29 TIMUR CRAWFORDERSDOB: [id number] [facility] [facility] 01/25/2024 TIMUR CRAWFORDERSDOB: [address] [place] [address]Whk: (HP) Primary Insurance:MEDICAREPolic y Number: [id number] Date:0193-13-29Yryj Name:Medicare TIMUR CRAWFORDERSDOB: [id number] [address] [facility] [facility] 01/25/2024 Secondary Insurance:MUTUAL OF [place] Number: [id number] Date:2021-06-29 TIMUR Eisenberg ENDERSDOB: 1236-05-69CKT[address] [place] [address] [facility] 01/25/2024 TIMUR Eisenberg ENDERSDOB: [address] [place] [address]Srp: (HP) Primary Insurance:MEDICAREPolic y Number: [id number] Date:6805-78-16Msaz Name:Medicare TIMUR FRANCISCOB: [id number] [address] [place] [address] [facility] 01/25/2024 Secondary Insurance:MUTUAL OF [facility]y Number: [id number] Date:2021-06-29 TIMUR Eisenberg MICAHB: [id number] [facility] [address] [facility] 01/18/2024 TIMUR Eisenberg MICAHB: W GymtrackFIN [place] [address]Zuu: () Primary Insurance:MEDICAREPolic y Number: [id number] Date:7587-16-57Megv Name:Medicare TIMUR CROSSB: [id number] [address] [place] [address] [facility] 01/18/2024 Secondary Insurance:MUTUAL OF [facility] Hospitaly Number: [id number] Date:2021-06-29 TIMUR Eisenberg MICAHB: [id number] [address] [place] [address] [facility] EP[facility]
[2025-01-03 11:31] LABS: Glucose Urine UA NEGATIVE (NEGATIVE)
[2025-01-03 11:47] LABS: Cast Seen? NONE SEEN #/LPF (NONE SEEN); Crystals Seen? None Seen #/HPF (None Seen)
== END 2025-01-03 10:32 | disposition home or self-care (01) ==
LOC: LAB 10:36
PROVIDERS: PCP Nurse Practitioner Family; Visit Provider Nurse Practitioner Family
DX: Z01.812 Encounter for preprocedural laboratory examination (principal); Z01.818 Encounter for other preprocedural examination; R82.998 Other abnormal findings in urine
CPT/HCPCS: 81001; 87086

== ENCOUNTER 2025-02-21 09:48 | Outpatient (RCR) | payer MEDICARE, OTHER, SELFPAY | END 2025-03-29 09:38 | disposition home or self-care (01) | LOC: PT 09:48 | PROVIDERS: PCP Nurse Practitioner Family; Visit Provider Orthopaedic Surgery Orthopaedic Surgery of the Spine | DX: Z47.89 Encounter for other orthopedic aftercare (principal); M54.50 Low back pain, unspecified; M79.604 Pain in right leg; R26.81 Unsteadiness on feet | CPT/HCPCS: 97110; 97112; 97162 ==

== ENCOUNTER 2025-04-06 09:19 | Outpatient (OUT) | payer MEDICARE, OTHER, SELFPAY ==
--- OUTSIDE RECORDS SUMMARY | 2025-04-06 09:29 | XMS_ITS | CCD ---
Author Organization [facility] Care Team Providers Care Physics Technician Name Role Phone Isauro Poe Primary Care Provider [phone] Wai Matson Jr. Unavailable Isauro Poe Primary Care Provider [phone] Isauro Poe MD Primary Care Provider Isauro Poe MD Primary Care Provider Mundo Dang Unavailable Wai Matson Jr. Unavailable Isauro Poe MD Primary Care Provider NANCI CARVAJAL Referring Unavailable ISAURO POE Primary Care Unavailab NANCI Gruber Referring Unavailable ISAURO POE Primary Care Unavailab MD Zhou Mathis Attending Provider [phone] Wai Matson Jr. Unavailable Isauro Poe MD Primary Care Provider CRISTY, DANETTE Admitting Unavailable [...] Unavailable CRISTY, DANETTE Primary Care Unavailable KARLA Parra, MR ALEJANDRO Consulting Unavailable NATALEE NGUYEN Admitting Unavailable NATALEE NGUYEN Attending Unavailable NO FAMILY, PHYSICIAN Primary Care Provider Unava ilable MD Zhou Fischer Attending Provider [phone] NO FAMILY, PHYSICIAN Primary Care Provider Unava chanelable MD Zhou Fischer Attending Provider [phone] NO FAMILY, PHYSICIAN Primary Care Provider Unava MD Zhou Benson Attending Provider [phone] NALINI Muniz Danette Beatris Primary Care Provider MD Mundo Dang Attending Provider [phone] MD Zhou Fischer Attending Provider [phone] NALINI Muniz Danette Beatris Primary Care Provider MD Zhou Fischer Attending Provider Isauro Poe MD Primary Care Provider ISAURO POE Primary Care Unavailable SABINA RED Attending Unavailable NALINI Muniz Danette Beatris Primary Care Provider MD Zhou Fischer Attending Provider Isauro Poe MD Primary Care Provider NALINI Muniz Danette Beatris Primary Care Provider [phone] MD Zhou Fischer Attending Provider [phone] NALINI Muniz Danette Beatris Primary Care Provider MD Zhou Fischer Attending Provider [phone] Unallocated , [place] Provider Primary Care Provi tiffany BLANCHE GUEVARA Referring Unava ilable BLANCHE GUEVARA Attending Unava ilable ISAURO POE Primary Care Unavailable Isauro Poe MD Primary Care Provider Cristy GAYLE, Danetterudy Spear Primary Care Provider Zhou Fischer MD Attending Provider [phone] DANETTE MUNIZ Referring Unavailable ISAURO POE Primary Care Unavailable DANETTE MUNIZ Referring Unavailable ISAURO POE Primary Care Unavailable CRISTY, DANETTE S Referring Unavailable HEMEHARRY, ISAURO J Primary Care Unavailable HEMEYER, ISAURO J Primary Care Unavailable CRISTY, DANETTE S Referring Unavailable HEMEYER, EDALTAGRACIA J Primary Care Unavailable CRISTY, DANETTE S Referring Unavailable NANCI CARVAJAL Attending Unavailable HEMEYER, ISAURO BUSTOS Primary Care Unavailab le WEINANCI SANTOS Attending Unavailable HEMEYER, ISAURO BUSTOS Primary Care Unavailab kalpesh SIEGELTAHAWY, EHAB Attending Unavailable Cristy ENVIRONMENTAL HEALTH SANITARIAN-C, Danette Spear Primary Care Provider Dashawn ENVIRONMENTAL HEALTH SANITARIAN-C, Charla Quintanilla Attending Provider Cristy ENVIRONMENTAL HEALTH SANITARIAN-C, Danette Spear Attending Provider [phone] Cristy PERIOPERATIVE MANAGER - FACILITY SPECIALIST, [place] Quintanilla Primary Care Provide r . MURIELCASPER IBRAHIM Admitting Unavailable STCASPER AKBAR Attending Unavailable DANETTE MUNIZ S Primary Care Unavailable DONA MOODY Consulting Unavailable CRUZ PALMA Attending Unavailable CRUZ PALMA Attending Unavailable POCZEINAB ABEL Referring Unavailable POCOS, ZEINAB Limon Attending Unavailable Cristy, Danette Beatris Primary Care Unavailable Charla Tamez Attending Unavailable Charla Tamez Admitting Unavailable Charla Tamez Attending Unavailable Charla Tamez S Admitting Unavailable Cristy, Danette Beatris Admitting Unavailable Cristy, Danette Garciae Attending Unavailable Zhou Fischer Attending Unavailable Zhou Fischer Admitting Unavailable Cristy, Danette Beatris Primary Care Unavailable Zhou Fischer Attending Unavailable Zhou Fischer Admitting Unavailable Cristy, Danette Beatris Primary Care Unavailable Cristy, Danette Beatris Primary Care Unavailable Zhou Fischer Attending Unavailable Zhou Fischer Admitting Unavailable Allergies Allergy Classification Reported Allergen(s) Allergy Type Date of Onset Reaction(s) Facility Opioid Agonists (2 sources) Meperidine Drug Allergy 1 Anaphylaxis [facility] (20 sources) Meperidine; Translations: [MEPERIDINE (PF)] Drug Allergy 1 Anaphylaxis [facility] (18 sources) Meperidine; Translations: [Demerol] Drug Allergy 1 [place] (16 sources) Meperidine; Translations: [MEPERIDINE] Drug Allergy 1 Other, Anaphylaxis, Other (See Comments) [facility] Work Phone: (1 source) Meperidine Drug Allergy 4 [facility] Repository Medications Current Medications Medication Drug Class(es) Dates Sig (Normalized) Sig (Original) acetaminophen 325 mg oral tablet (20 sources) Start: 01-10-2025 take 1 tablet by sylvester th every six hours as needed acetaminophen (TYLENOL) 500 MG tablet Ta ke 1 tablet by mouth every 6 hours as needed Suspended Amitriptyline (1 source) Tricyclic Antidepressant Amitrip tyline HCl Active amLODIPine (20 sources) Dihydropyridine Calcium Channel Ramonita Start: 01-10-2025 amLODIPine (NORVASC) tablet 10 mg End: 01-04-2025 take 1 tablet by mouth once daily amLODIPine (NORVASC) 10 MG tablet Take 1 tablet by mouth daily 01/04/2025 Discontinued (LIST CLEANUP) amLODIPine Besyl ate Active Comment on above: Take 10 mg by mouth once daily. amLODIPine 10 mg / benazepril hydrochloride 20 mg oral capsule (20 sources) Dihydropyridine Calcium Channel Ramonita, Angiotensin Converting Enzyme Inhibitor Start: 11-11-2023 amLODIPine-benazepr il (Lotrel) 10-20 MG capsule 11/11/2023 Active Start: 05-06-2023 take 1 capsule by mouth once d aily chondroitin sulfates 400 mg / glucosamine hydrochloride 500 mg oral capsule (2 sources) Start: 05-06-2023 take 1 capsule by mouth once daily cyclobenzaprine hydrochloride 10 mg oral tablet (3 sources) Muscle Relaxant Start: 01-09-2025 diclofen vrq-gnsqfa-o-jane-ment (NUDROXIPAK DSDR-75) 75 mg-0.025 %- 25 %-6 % kit (8 sources) diclofen aea-emkmqx-x-jane- ment (NUDROXIPAK DSDR-75) 75 mg-0.025 %- 25 %-6 % kit twice daily. Take diclofenac 1 tablet (75 mg) by mouth 2 daily. Apply capsaicin-methyl salicylate-mentho l liquid topically to the affected area as directed (no more than 4 times per day). Active diclofen sod-cap fmz-i-mtg-ment (NUDROXIPAK DSDR-75) 75 mg-0.025 %- 25 %-6 [...] 100 g 2 09/08/2023 Active Start: 05-06-2023 End: 01-13-2025 take 1 tablet by mouth once daily End: 01-04-2025 DICLOFENAC PO Take by mouth 01/04/2025 Discontinued (LIST CLEANUP) DICLOFENAC PO Ta ke by mouth Active End: 10-20-2023 diclofenac sodium 1% (VOLTAR EN) 1 % Gel APPLY 2 G TOPICALLY IN THE MORNING AND 2 G IN THE EVENING AND 2 G BEFORE BEDTIME. 0 10/20/2023 Discontinued (Therapy completed) take 2 tablets by [facility] every twenty-four hours Diclofenac Sodium 75 MG 2 tablets Oral once a day for 30 Days Active folic acid 1 mg oral tablet (20 sources) Start: 05-06-2023 take 1 tablet by mouth once da drea Folic Acid Activ e gluc garcia/chondro garcia A/vit C/M n (GLUCOSAMINE 1500 COMPLEX ORAL) (20 sources) gluc garcia/chondro garcia A/vit C/Mn (GLUCOSAMINE 1500 COMPLEX ORAL) Take by mouth. Active gluc garcia/chondro garcia A/vit C/Mn (GLUCOSAMINE 1500 COMPLEX ORAL) Take by mouth. 0 Active gluc garcia/chondro garcia A/vit C/Mn (GLUCOSAMINE 1500 COMPLEX ORAL) Take by mouth . 0 Active Comment on above: Take by mouth. glucosamine sulfate 500 mg o ral capsule (14 sources) Glucosamine 500 MG capsule 1 (one) time each day at the same time Active Glucosamine Acti ve Ejlofmrgaks-Qpeqvldwa-Zpb C-Mn (7 sources) Start: 05-06-2023 take 1 capsule by mouth once daily Jnlclhymenu-Uwyrmtaks-Mbi C-Mn Active 1 CAP PO Daily May 06, 2023 1:00am Start: 05-06-2023 take 1 capsule by [facility] once daily Nlnwaojjfws-Rntwcjube-Eqb C-Mn Active 1 CAP PO Daily May 06, 2023 12:00am Pmhbvywnijf-Nrmsukybl-Jbx C-Mn 500-400 mg Capsule (2 sources) Start: 05-06-2023 take 1 capsule by mouth once daily Nzxwgrgmmqf-Pqetibrjy-Daw C-Mn 500-400 mg Capsule Active 1 CAP PO Daily May 06, 2023 1:00am iv contrast (will be provide d with radiology test) (4 sources) Start: 12-20-2024 End: 12-21-2024 iv contrast (will be provide d with [...] the CT contrast administration guidelines link. 1 each 12/20/2024 12/21/2024 Active Start: 06-07-2024 End: 06-08-2024 iv contrast (will be provide d with radiology test) Indications: History of bladder [...] in the CT contrast administration guidelines link. meloxicam 15 mg oral tablet (9 sources) Nonsteroidal Anti-inflammatory Drug Start: 020 End: 021 take 1 tablet by mouth once daily meloxicam (MOBIC) 15 MG tablet Indications: Spondylolisthesis of lumbar region Take 1 (one) tablet (15 mg total) by mouth daily . 90 tablet 3 02/08/2020 02/07/2021 Active methotrexate 2.5 mg oral tablet (20 sources) Folate Analog Metabolic Inhibitor Start: 024 methotrexate 2.5 MG tablet 08/27/2023 Active Start: 05-06-2023 take 5 tablets by mo uth every week Start: 05-06-2023 take 12.5 mg by mout h every week Methotrexate Sodium Active 12.5 MG PO every week May 06, 2023 12:00am take 2.5 mg by mouth five times daily METHOTREXATE ORAL Take 2.5 mg by mouth five times daily. Active Comment on above: Take 2.5 mg by mouth five times daily. Multiple Vitamin (multivitamin) tablet (10 sources) take 1 tablet by mouth once daily Multiple Vitamin (multivitamin) tablet Take 1 tablet by mouth Daily Active vqqypgte-lnk-jqpquts sulfate (One Daily Multi-Vit w-Mineral) 4.5 mg iron Tab (9 sources) hkgmzofn-mrp-uus hamlet sulfate (One Daily Multi-Vit w-Mineral) 4.5 mg iron Tab Take by mouth . 0 Active multivit-minerals/FA/l ycopene (ONE-A-DAY MEN'S ORAL) (16 sources) multivit-mineral s/FA/ lycopene (ONE-A-DAY MEN'S ORAL) [...] 2023 12:00am Multivitamin Act macho Multivitamin Tablet (4 sources) Start: 05-06-2023 take 1 tablet by mouth once da drea Start: 05-06-2023 take 1 tablet by sylvester th once daily Multivitamin Tablet Active 1 TAB PO Daily May 06, 2023 1:00am omeprazole 20 mg delayed release oral capsule (20 sources) Proton Pump Inhibitor Start: 05-06-2023 take 1 capsule by mouth once daily take 1 capsule by mouth once arnaldo ly omeprazole (PRILOSEC) 40 MG capsule Take 1 capsule by mouth daily Suspended omeprazole (PRIL OSEC) 40 MG capsule Take 20 mg by mouth daily . 0 Active Omeprazole Activ e Comment on above: Take 20 mg by mouth once daily. ondansetron (ZOFRAN-ODT) disintegrating tablet 4 mg (1 source) Start: 01-10-2025 ondansetron (ZOFRAN-ODT) disintegrating tablet 4 mg oxyCODONE (1 source) Opioid Agonist Start: 01-10-2025 oxyCODONE (ROXICODONE) immediate release tablet 5 mg polyethylene glycol [id number] mg powder for oral solution (1 source) Osmotic Laxative Start: 01-10-2025 17 g, Oral, DAILY, First dose on Thu01/10/25 at 1915, Until Discontinued, Stir and dissolve one packet of powder (17 g) in any 4 to 8 ounces of beverage (cold, hot or room temperature) then drink, Post-op pyridoxine hydrochloride 25 mg oral tablet (11 sources) pyridoxine (Berkley min B-6) 25 MG tablet Active take 1 tablet by mouth once cece y pyridoxine (B-6) 25 MG tablet Take 1 tablet by mouth daily Suspended pyridoxine HCl, vitamin B6, (VITAMIN B-6 ORAL) (20 sources) pyridoxine HCl, vitamin B6, (VITAMIN B-6 ORAL) Take 100 mg by mouth. Active pyridoxine HCl, vitamin B6, (VITAMIN B-6 ORAL) Take 100 mg by mouth. 0 Active pyridoxine HCl, vitamin B6, (VITAMIN B-6 ORAL) Take 100 mg by mouth . 0 Active Comment on above: Take 100 mg by mouth . vitamin b12 0.1 mg oral tablet (14 sources) Vitamin B12 take 1 tablet by [...] 50 mg in NaCl 0.9% 50 mL bisacodyl 5 mg delayed release oral tablet (2 sources) Stimulant Laxative Start: 01-10-2025 take 5 mg by mouth once daily 5 mg, Oral, DAILY, First dose on Thu01/10/25 at 1930, Until Discontinued, Do not crush or break., Post-op Start: 01-10-2025 take 10 mg rectal ro wilver once daily as needed for constipation 10 mg, Rectal, DAILY PRN, Starting on Thu01/10/25 at 1845, Until Discontinued, Constipation, Second line therapy for constipation, After 24 hours, if no result from first line PRN therapy, give second line therapy in combination with first line therapy., Post-op ceFAZolin (ANCEF) 2,000 mg in sterile water 20 mL IV syringe (1 source) Start: 01-10-2025 End: 01-11-2025 2,000 mg, IntraVENous, EVERY 8 HOURS, 2 doses, First dose on Thu01/10/25 at 2100, Last dose on Thu01/11/25 at 0500, Antimicrobial Indications: Surgical Prophylaxis, Administer over 5 mins. Reconstitute 2 g vial with 20 mL Sterile Water. Withdraw entire contents., Post-op clotrimazole 10 mg/ml topical solution (16 sources) Azole Antifungal Start: 12-23-2018 End: 12-20-2024 clotrimazole (LOTRIMIN) 1 % external solution 12/23/2018 12/20/2024 Discontinued (Course of therapy completed) docusate sodium 50 mg / sennosides, detention 8.6 mg oral tablet (1 source) Start: 01-10-2025 take 1 tablet by mouth twice daily 1 tablet, Oral, 2 TIMES DAILY, First dose on Thu01/10/25 at 2100, Until Discontinued, Post-op 2 ml fentaNYL 0.05 mg/ml injection (2 sources) Opioid Agonist Start: 01-10-2025 End: 01-10-2025 50 mcg, IntraVENous, EVERY 5 MIN PRN, 4 doses, Starting on Thu01/10/25 at 1717, Until Thu01/10/25 at 1844, Pain Severe (7-10), If oral and IV narcotics ordered, use oral first and only use IV if oral is ineffective or cannot take oral. Do Not give oral and IV within 1 hour of each other unless specifically ordered., PACU only finasteride 5 mg oral tablet (20 sources) 5-alpha Reductase Inhibitor Start: 05-06-2023 End: 12-20-2024 5 mg, Oral, DAILY, First dose on Thu01/10/25 at 1930, Until Discontinued, Women should not handle crushed or broken finasteride tablets when they are or may potentially be , due to potential risk to the fetus. Finasteride Acti ve Comment on above: Take 5 mg by mouth o nce daily. fluorouracil 50 mg/ml topical cream (8 sources) Nucleoside Metabolic Inhibitor Start: 5 End: fluorouracil (Efudex) 5 % cream Indications: Actinic keratosis Apply to directed areas on the scalp and forehead twice a day x 14 days. Dispense 30 day supply but only use for 14 days. 40 g 11/08/2024 02/13/2025 Discontinued gemfibrozil 600 mg oral tablet (20 sources) Peroxisome Proliferator Receptor alpha Agonist End: take 1 tablet by mouth once daily gemfibrozil (LOPID) 600 mg tablet Take 600 mg by mouth once daily. 12/20/2024 Discontinued (Course of therapy completed) End: 10-20-2023 take 1 tablet by mouth twice daily before mealtime gemfibroziL (LOPID) 600 MG tablet Take 1 (one) tablet (600 mg total) by mouth 2 (two) times a day before meals . 0 10/20/2023 Discontinued (Therapy completed) Comment on above: Take 600 mg by mouth once daily. Vfxzgvfhojn-Nhhnyiuwo-Xol C-Mn (GLUCOSAMINE 1500 COMPLEX PO) (17 sources) Glucosamine-Xavier droit-Vit C-Mn (GLUCOSAMINE 1500 COMPLEX PO) Take 1,500 mg by mouth 2 times daily. Suspended Glucosamine-Xavier droit-Vit C-Mn (GLUCOSAMINE 1500 COMPLEX PO) Take 1,500 mg by mouth 2 times daily. Active Glucosamine-Xavier droit-Vit C-Mn (GLUCOSAMINE 1500 COMPLEX PO) Take 1,500 mg by mouth 2 times daily. 0 Active gramicidin 0.025 mg/ml / neomycin 1.75 mg/ml / polymyxin b 22537 unt/ml ophthalmic solution (14 sources) Aminoglycoside Antibacterial, Polymyxin-class Antibacterial Start: 09-12-2017 End: 09-07-2024 take 1 drop(s) into the eye(s) four times daily iheuwait-hzghhcqjb-nbecmpqqaf (NEOSPORIN) [id number] 1 drop into both eyes 4 times daily 1 Bottle 09/12/2017 09/07/2024 Discontinued (LIST CLEANUP) hydrocortisone 10 mg/ml / neomycin 3.5 mg/ml / polymyxin b 32056 unt/ml otic solution (16 sources) Aminoglycoside Antibacterial, Polymyxin-class Antibacterial, Corticosteroid Start: 12-15-2018 End: 12-20-2024 nbmeaeou-vremuozmp-mmbexeehp is one (CORTISPORIN) otic solution 12/15/2018 12/20/2024 Discontinued (Course of therapy completed) 1 ml HYDROmorphone hydrochloride 1 mg/ml cartridge (1 source) Opioid Agonist Start: 01-10-2025 End: 01-10-2025 0.5 mg, IntraVENous, EVERY 5 MIN PRN, 4 doses, Starting on Thu01/10/25 at 1717, Until Thu01/10/25 at 1844, Pain Severe (7-10), secondary therapy for severe pain, If oral and IV narcotics ordered, use oral first and only use IV if oral is ineffective or cannot take oral. Do Not give oral and IV within 1 hour of each other unless specifically ordered., PACU only hydroxychloroquine sulfate 200 mg oral tablet (20 sources) Antimalarial, Antirheumatic Agent Start: 01-10-2025 take 1 tablet by mouth twice daily 200 mg, Oral, 2 TIMES DAILY, First dose on Thu01/10/25 at 2100, Until Discontinued, Do not crush or divide film-coated tablets Start: 05-06-2023 take 1 tablet by mouth once da drea Comment on above: Take 200 mg by mouth twice daily. lidocaine hydrochloride 0.02 mg/mg topical gel (13 sources) Antiarrhythmic, Amide Local Anesthetic Start: 12-20-2024 End: 12-20-2024 lidocaine urojet 2 % 11 mL topical gel (GLYDO) Start: 12-20-2024 End: 12-20-2024 11 mL, URETHRAL, ONCE (UP TO 30 DAYS AMB), 1 dose, On Thu12/20/24 at 1130, FOR EXTERNAL USE ONLY APPLY TO: urethra for cystoscopy Start: 06-07-2024 End: 06-07-2024 lidocaine urojet 2 % 11 mL t opical gel (GLYDO) Start: 06-07-2024 End: 06-07-2024 11 [...] 11 mL t opical gel (XYLOCAINE, GLYDO) losartan potassium 100 mg oral tablet (20 sources) Angiotensin 2 Receptor Ramonita End: 12-20-2024 take 1 tablet by mouth once daily losartan (COZAAR) 100 mg tablet Take 100 mg by mouth once daily. 12/20/2024 Discontinued (Course of therapy completed) Losartan Paulaassi um Active Comment on above: Take 100 mg by mouth once daily. magnesium hydroxide 80 mg/ml oral suspension (1 source) Start: 01-11-20 take 30 mL by mouth once daily as needed for constipation 30 mL, Oral, DAILY PRN, Starting on Thu01/10/25 at 1845, Until Discontinued, Constipation, First line therapy for constipation., Post-op Multiple Vitamin (MULTIVITAMIN) tablet (1 source) take 1 tablet by mouth once daily Multiple Vitamin (MULTIVITAMIN) tablet Take 1 tablet by mouth daily Suspended naloxegol 25 mg oral tablet (2 sources) Opioid Antagonist Start: 01-14-20 take 1 dose by mouth every hour at mealtime 12.5 mg, Oral, DAILY BEFORE BREAKFAST, First dose on Thu01/13/25 at 0700, Until Discontinued, Administer on an empty stomach at least 1 hour prior to or 2 hours after the first meal of the day. Avoid consumption of grapefruit or grapefruit juice during treatment. Start: 01-12-2025 End: 01-12-2025 take 1 dose by mouth every hour at mealtime 12.5 mg, Oral, DAILY BEFORE BREAKFAST, First dose on Thu01/12/25 at 0700, Until Discontinued, Administer on an empty stomach at least 1 hour prior to or 2 hours after the first meal of the day. Avoid consumption of grapefruit or grapefruit juice during treatment. naproxen sodium 220 mg oral capsule (20 sources) Nonsteroidal Anti-inflammatory Drug End: 01-04-2025 take 2 tablets by mouth twice daily Naproxen Sodium (ALEVE) 220 MG CAPS Take 2 tablets by mouth 2 times daily. 01/04/2025 Discontinued (LIST CLEANUP) pantoprazole 40 mg delayed release oral tablet (1 source) Proton Pump Inhibitor Start: 01-11-2025 40 mg, Oral, DAILY BEFORE BREAKFAST, First dose on Thu01/11/25 at 0700, Until Discontinued, Do not crush or break. Substituted for Omeprazole (PRILOSEC). predniSONE 20 mg oral tablet (12 sources) Start: 11-11-2021 End: 09-07-2024 take 2 tablets by mouth once daily at mealtime predniSONE (DELTASONE) 20 MG tablet Indications: Viral upper respiratory tract infection with cough Take 2 tablets by mouth daily x 5 days. Take with food. 10 tablet 11/11/2021 09/07/2024 Discontinued (LIST CLEANUP) End: 12-20-2024 predniSONE EC 5 mg Delayed R elease Tab Take 5 mg by mouth as needed. 12/20/2024 Discontinued (Course of therapy completed) Comment on above: Take 5 mg by mouth a s needed. prochlorperazine 5 mg/ml injectable solution (1 source) Phenothiazine Start: 2024 10 mg, IntraVENous, EVERY 6 HOURS PRN, Starting on Thu01/10/25 at 1952, Until Discontinued, Nausea, If administering IV push, administer at a maximum rate of 5 mg/minute. Patients should remain lying down following administration and be reassessed for relief of nausea and presence of hypotension. Patients should be assisted the first time they get up after administration. regadenoson (LEXISCAN) injection 0.4 mg (1 source) Start: 2024 End: 2024 take 0.4 mg intravenously once as needed 0.4 mg, IntraVENous, IMG ONCE PRN, 1 dose, Starting on Thu09/07/24 at 0802, Until Thu09/07/24 at 1117, Other, Only to be given in Nuclear Med during CARDIAC STRESS TEST ONLY., Pre-procedure(Stres s) 5 ml sodium chloride 9 mg/ml injection (10 sources) Start: 2024 5-40 mL, IntraVENous, EVERY 12 HOURS SCHEDULED (2 times per day), First dose on Thu01/10/25 at 2100, Until Discontinued, For Line Patency: Peripheral IV = 5 mL; Midline or Central Line = 10 mL/lumen. If following IV push medication, administer flush [...] Midline or Central Line = 20 mL/lumen, Post-op Start: 01-10-2025 IntraVENous, a t 125 mL/hr, CONTINUOUS, Starting on Thu01/10/25 at 1915, Post-op Start: 01-10-2025 Start: 01-10-2025 End: 01-10-2025 IntraVENous, at 5-250 mL/hr, PRN, if patient receiving piggyback infusions and maintenance fluids are not ordered, Starting on Thu01/10/25 at 0935, For piggyback infusion, administer at same rate as piggyback for a total of 25 mL. Enter 25 mL into dose field and piggyback rate into rate field of order. If piggyback is infusing at a rate less than 100 mL/hr, enter 25 mL into dose field and 100 mL/hr into rate field of order., Pre-op (day of surgery) Start: 12-20-2024 End: 12-20-2024 0.9 % sodium chloride (NACL 0.9%) infusion Administer at rate defined per CT contrast administration specifications. To be provided with radiology test. 150 mL 12/20/2024 12/20/2024 Active Start: 09-07-2024 End: 09-07-2024 5-40 mL, IntraVENous, PRN, Starting on Thu09/07/24 [...] Midline or Central Line = 20 mL/lumen, Pre-procedure(Stress) Start: 06-07-2024 End: 06-07-2024 0.9 % sodium [...] test. tamsulosin hydrochloride 0.4 mg oral capsule (6 sources) alpha-Adrenergic Ramonita Start: 2023 End: 2024 take 0.4 mg by mouth once daily at mealtime 0.4 mg, Oral, DAILY, First dose on Thu01/10/25 at 1930, Until Discontinued, Do not crush or break. Give 30 minutes after a full meal to limit risk of orthostatic hypotension/falls. technetium sestamibi (CARDIOLITE) injection 10 millicurie (1 source) Start: 2024 End: 2024 take 1 dose intravenously once 10 millicurie, IntraVENous, IMG ONCE PRN, 1 dose, Starting on Thu09/07/24 at 1032, Until Thu09/07/24 at 1304, Other technetium sestamibi (CARDIOLITE) injection 30 millicurie (1 source) Start: 2024 End: 2024 take 1 dose intravenously once 30 millicurie, IntraVENous, IMG ONCE PRN, 1 dose, Starting on Thu09/07/24 at 1032, Until Thu09/07/24 at 1304, Other [...] Onset: 8 05-11-2018 Chronic Cancer of bladder (11 sources) H/O: malignant neoplasm; Translations: [Personal history of malignant neoplasm of bladder] Onset: 2 Episodic Chronic obstructive pulmonary disease and bronchiectasis (18 sources) Chronic obstructive lung disease; Translations: [Chronic obstructive pulmonary disease, unspecified] Onset: 1 05-29-2011 Chronic Digestive congenital anomalies (8 sources) Esophageal diverticulum; 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] Onset: 2 Resolved: 2 Chronic Disorders of lipid metabolism (20 sources) Pure hypercholesterolemia; Translations: [Pure hypercholesterolemia, unspecified] [...] lumbar region] Onset: 0 02-07-2020 Other aftercare (6 sources) History of bladder neoplasm; Translations: [Encounter for follow-up examination after completed treatment for malignant neoplasm] Episodic Other aftercare (1 source) Encounter for follow-up examination after completed treatment for malignant neoplasm; Translations: [Encounter for follow-up surveillance of bladder cancer] Onset: 5 Episodic Other connective tissue disease (1 source) Presence of right artificial hip joint; Translations: [PRESENCE RIGHT ARTIFICIAL HIP JOINT] Onset: 3 Chronic Other connective tissue disease (2 sources) History of repair of hip joint; Translations: [Presence of right artificial hip joint] 02-13-2025 Chronic Other connective tissue disease (2 sources) Other symptoms and signs involving the musculoskeletal system; Translations: [Other musculoskeletal symptoms referable to limbs] 02-13-2025 Episodic Other ear and sense organ disorders (20 sources) Hearing loss; Translations: [Unspecified hearing loss, unspecified ear] Onset: 3 05-14-2018 Chronic Other gastrointestinal disorders (14 sources) Dysphagia; Translations: [Dysphagia, unspecified] 05-06-2023 Episodic [...] in right hip] Episodic Other skin disorders (4 sources) Actinic keratosis; Translations: [Actinic keratosis] 11-08-2024 Episodic Other skin disorders (2 sources) Eruption; Translations: [Rash and other nonspecific skin eruption] 11-08-2024 Episodic Other upper respiratory infections (1 source) Viral upper respiratory tract infection; Translations: [Acute upper respiratory infection, unspecified] Episodic Residual codes; unclassified (17 sources) Sleep apnea; Translations: [Sleep apnea, unspecified] [...] 10-20-2023 Episodic Rheumatoid arthritis and related disease (20 sources) Rheumatoid arthritis; Translations: [Rheumatoid arthritis, unspecified] [...] Complications of surgical procedures or medical care (20 sources) Subcutaneous emphysema resulting from a procedure; [...] Onset: 04-08-2018 05-11-2018 Episodic Other acquired deformities (13 sources) Lumbar spondylolisthesis; Translations: [Spondylolisthesis, lumbar region] Onset: 02-07-2020 02-07-2020 Episodic Other aftercare (1 source) 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; Translations: [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] Onset: 07-02-2022 Episodic Other connective tissue disease (1 source) Arthrodesis status; Translations: [ARTHRODESIS STATUS] Onset: 07-02-2022 Episodic Other connective tissue disease (1 source) Pain in right foot; Translations: [Pain in right foot] Onset: 08-30-2024 Episodic Residual codes; unclassified (20 sources) Disorder [...] Test Name Value Interpretation Reference Range Facility Alanine aminotransferase [En zymatic activity/volume] in Serum or PlasmaOrdered By: Charla Tamez on 03-09-2025 ALT [Catalytic activity/Vol] 16 U/L Normal 7-52 [facility] Comment on above: Performed By: #### E SR, CREAT, CBC, HEPATIC #### [address] Albumin [Mass/volume] in Ser um or Plasma by Bromocresol green (BCG) dye binding methoOrdered By: Charla Tamez on 03-09-2025 Albumin BCG dye [Mass/Vol] 4.6 g/dL 3.5-5.7 [facility] Alkaline phosphatase [Enzyma tic activity/volume] in Serum or PlasmaOrdered By: Charla Tamez on 03-09-2025 ALP [Catalytic activity/Vol] 93 U/L Normal 34-104 [facility] Comment on above: Result Comment: PERF ORMED BY: [place] [address] PATHOLOGIST FLOOR STEWARD/STEWARDESS YOSEF KUMAR M.D. Performed By: #### E SR, CREAT, CBC, HEPATIC #### [facility] [address] [place] [address] Aspartate aminotransferase [ Enzymatic activity/volume] in Serum or PlasmaOrdered By: Charla Tamez on 03-09-2025 AST [Catalytic activity/Vol] 19 U/L Normal 13-39 [facility] Comment on above: Performed By: #### E SR, CREAT, CBC, HEPATIC #### [facility] [address] [place] [address] [place] Basophils [#/volume] in Bloo d by Automated countOrdered By: Charla Tamez on 03-09-2025 Basophils (Bld) [#/Vol] 0.1 10*3/uL Normal 0.0-0.2 [facility] Comment on above: Performed By: #### E SR, CREAT, CBC, HEPATIC #### [facility] [address] [place] [address] [place] Basophils/100 leukocytes in Blood by Automated countOrdered By: Charla Tamez on 03-09-2025 Basophils/100 WBC (Bld) 0.9 % Normal . [facility] Comment on above: Performed By: #### E SR, CREAT, CBC, HEPATIC #### [facility] [address] [place] [address] Bilirubin.total [Mass/volume ] in Serum or PlasmaOrdered By: Charla Tamez on 03-09-2025 Bilirubin [Mass/Vol] 0.6 mg/dL Normal 0.3-1.0 [facility] Comment on above: Performed By: #### E SR, CREAT, CBC, HEPATIC #### [facility] [address] Calcium [Mass/volume] in Ser um or PlasmaOrdered By: Charla Tamez on 03-09-2025 Calcium [Mass/Vol] 9.7 mg/dL Normal 8.6-10.3 [facility] Comment on above: Performed By: #### E SR, CREAT, CBC, HEPATIC #### [facility] [address] Carbon dioxide, total [Moles /volume] in Serum or PlasmaOrdered By: Charla Tamez on 03-09-2025 CO2 [Moles/Vol] 30.8 mmol/L Normal 21.0-31.0 [facility] Comment on above: Performed By: #### E SR, CREAT, CBC, HEPATIC #### [facility] [address] [place] [address] Chloride [Moles/volume] in S honey or PlasmaOrdered By: Charla Tamez on 03-09-2025 Chloride [Moles/Vol] 102 mmol/L Normal 98-107 [facility] Comment on above: Performed By: #### E SR, CREAT, CBC, HEPATIC #### [address] Complete Blood Count Auto Di ffon 03-09-2025 Mean Corpuscular HGB Conc 33.0 g/dL Normal 32.5-35.6 [facility] Comment on above: Performed By: #### E SR, CREAT, CBC, HEPATIC #### [facility] [address] NRBC% 0.0 /100{WBC} Normal 0-0.5 [facility] Comment on above: Performed By: #### E SR, CREAT, CBC, HEPATIC #### [facility] [address] White Blood Count 5.6 [CFU]/mL Normal 4.1-10.5 [facility] Comment on above: Performed By: #### E SR, CREAT, CBC, HEPATIC #### [facility] [address] Comprehensive Metabolic Pane jonatan 03-09-2025 Albumin [Mass/Vol] 4.6 g/dL Normal 3.5-5.7 [facility] Comment on above: Performed By: #### E SR, CREAT, CBC, HEPATIC #### [facility] [address] [place] [address] [place] GFR/1.73 sq M.predicted MDRD (S/P/Bld) [Vol rate/Area] mL/min/{1.73_m2} Normal [facility] Comment on above: Performed By: #### E SR, CREAT, CBC, HEPATIC #### [address] Creatinine [Mass/volume] in Serum or PlasmaOrdered By: Charla Tamez on 03-09-2025 Creatinine [Mass/Vol] 0.79 mg/dL Normal 0.70-1.30 [facility] Comment on above: Performed By: #### E SR, CREAT, CBC, HEPATIC #### [facility] [address] [place] [address] [place] Eosinophils [#/volume] in Bl ood by Automated countOrdered By: Charla Tamez on 03-09-2025 Eosinophils (Bld) [#/Vol] 0.2 10*3/uL Normal 0.0-0.45 [facility] Comment on above: Performed By: #### E SR, CREAT, CBC, HEPATIC #### [place] [address] [place] Eosinophils/100 leukocytes i n Blood by Automated countOrdered By: Charla Tamez on 03-09-2025 Eosinophils/100 WBC (Bld) 3.3 % Normal . [facility] Comment on above: Performed By: #### E SR, CREAT, CBC, HEPATIC #### [facility] [address] [place] [address] [place] Erythrocyte Sedimentation Ra pennie 03-09-2025 ESR (Bld) [Velocity] 10 mm/h Normal 0-19 [facility] Comment on above: Result Comment: PERF ORMED BY: [place] [address] PATHOLOGIST FLOOR STEWARD/STEWARDESS YOSEF KUMAR M.D. Performed By: #### E SR, CREAT, CBC, HEPATIC #### [facility] [address] [place] [address] Erythrocyte distribution wid th [Ratio] by Automated countOrdered By: Charla Tamez on 03-09-2025 Erythrocyte distribution width (RBC) [Ratio] 14.2 % Normal 12.0-14.8 [facility] Comment on above: Performed By: #### E SR, CREAT, CBC, HEPATIC #### [facility] [address] [place] [address] Erythrocyte sedimentation ra te by Photometric methodOrdered By: Charla Tamez on 03-09-2025 ESR Photometric method (Bld) [Velocity] 10 mm/hr 0-19 [facility] Erythrocytes [#/volume] in B lood by Automated countOrdered By: Charla Tamez on 03-09-2025 RBC (Bld) [#/Vol] 4.53 10*6/uL Normal 3.90-5.60 [facility] Comment on above: Performed By: #### E SR, CREAT, CBC, HEPATIC #### [address] Glomerular filtration rate [ Volume Rate/Area] in Serum, Plasma or Blood by CreatinineOrdered By: Charla Tamez on 03-09-2025 Glomerular filtration rate [Volume Rate/Area] in Serum, Plasma or Blood by Creatinine > 60.0 mL/Min [facility] Glucose [Mass/volume] in Ser um or PlasmaOrdered By: Charla Tamez on 03-09-2025 Glucose [Mass/Vol] 105 mg/dL High 70-100 [facility] Comment on above: ADA recommended refe rence rangeRandom Glucose Reference Range is dependent on time and content of last meal. Glucose of more than 200 mg/dL in a nonstressed, ambulatory subject supports the diagnosis of Diabetes Mellitus. Result Comment: [place] om Glucose Reference Range is dependent on time and content of last meal. Glucose of more than 200 mg/dL in a nonstressed, ambulatory subject supports the diagnosis of Diabetes Mellitus. ADA recommended reference range Performed By: #### E SR, CREAT, CBC, HEPATIC #### [facility] [address] Hematocrit [Volume Fraction] of Blood by Automated countOrdered By: Charla Tamez on 03-09-2025 Hematocrit (Bld) [Volume fraction] 40.5 % Normal 38.8-50.0 [facility] Comment on above: Performed By: #### E SR, CREAT, CBC, HEPATIC #### [facility] [address] Hemoglobin [Mass/volume] in BloodOrdered By: Charla Tamez on 03-09-2025 Hemoglobin (Bld) [Mass/Vol] 13.4 g/dL Normal 13.0-17.0 [facility] Comment on above: Performed By: #### E SR, CREAT, CBC, HEPATIC #### [address] Leukocytes [#/volume] correc basim for nucleated erythrocytes in Blood by Automated counOrdered By: Charla Tamez on 03-09-2025 WBC corrected for nucl RBC Auto (Bld) [#/Vol] 5.6 10*3/uL 4.1-10.5 [facility] Leukocytes [#/volume] in Blo od by Automated countOrdered By: Charla Tamez on 03-09-2025 WBC (Bld) [#/Vol] 5.6 10*3/uL Normal 4.1-10.5 [facility] Comment on above: Performed By: #### E SR, CREAT, CBC, HEPATIC #### [facility] [address] [place] [address] Lymphocytes [#/volume] in Bl ood by Automated countOrdered By: Charla Tamez on 03-09-2025 Lymphocytes (Bld) [#/Vol] 1.4 10*3/uL Normal 1.00-4.8 [facility] Comment on above: Performed By: #### E SR, CREAT, CBC, HEPATIC #### [facility] [address] [place] [address] [place] Lymphocytes/100 leukocytes i n Blood by Automated countOrdered By: Charla Tamez on 03-09-2025 Lymphocytes/100 WBC (Bld) 25.4 % Normal . [facility] Comment on above: Performed By: #### E SR, CREAT, CBC, HEPATIC #### [facility] [address] [place] [address] MCH [Entitic mass] by Automa basim countOrdered By: Charla Tamez on 03-09-2025 MCH (RBC) [Entitic mass] 29.5 pg Normal 27.5-35.2 [facility] Comment on above: Performed By: #### E SR, CREAT, CBC, HEPATIC #### [address] MCHC Auto (RBC) [Mass/Vol]Or dered By: Charla Tamez on 03-09-2025 MCHC (RBC) [Mass/Vol] 33.0 g/dL 32.5-35.6 [facility] MCV [Entitic volume] by Auto mated countOrdered By: Charla Tamez on 03-09-2025 MCV (RBC) [Entitic vol] 89.4 fL Normal 83.5-101 [facility] Comment on above: Performed By: #### E SR, CREAT, CBC, HEPATIC #### [facility] [address] [place] [address] [place] Monocytes [#/volume] in Bloo d by Automated countOrdered By: Charla Tamez on 03-09-2025 Monocytes (Bld) [#/Vol] 0.6 10*3/uL Normal 0.0-0.8 [facility] Comment on above: Performed By: #### E SR, CREAT, CBC, HEPATIC #### [facility] [address] [place] [address] [place] Monocytes/100 leukocytes in Blood by Automated countOrdered By: Charla Tamez on 03-09-2025 Monocytes/100 WBC (Bld) 9.9 % Normal . [facility] Comment on above: Performed By: #### E SR, CREAT, CBC, HEPATIC #### [facility] [address] Neutrophils [#/volume] in Bl ood by Automated countOrdered By: Charla Tamez on 03-09-2025 Neutrophils (Bld) [#/Vol] 3.4 10*3/uL Normal 1.8-7.7 [facility] Comment on above: Performed By: #### E SR, CREAT, CBC, HEPATIC #### [facility] [address] [place] [address] [place] Neutrophils/100 leukocytes i n Blood by Automated countOrdered By: Charla Tamez on 03-09-2025 Neutrophils/100 WBC (Bld) 60.5 % Normal . [facility] Comment on above: Performed By: #### E SR, CREAT, CBC, HEPATIC #### [facility] [address] [place] [address] No Panel InformationOrdered By: Charla Tamez on 03-09-2025 Pharmacy Creatinine Clearance (Chem N/A [facility] Nucleated erythrocytes [Pres ence] in Blood by Automated countOrdered By: Charla Tamez on 03-09-2025 Nucleated RBC Auto Ql (Bld) 0.0 /100{WBC} 0-0.5 [facility] Platelet mean volume [Entiti c volume] in Blood by Automated countOrdered By: Charla Tamez on 03-09-2025 Platelet mean volume (Bld) [Entitic vol] 8.2 fL Normal 6.6-10.1 [facility] Comment on above: Performed By: #### E SR, CREAT, CBC, HEPATIC #### [facility] [address] [place] [address] Platelets [#/volume] in Bloo d by Automated countOrdered By: Charla Tamez on 03-09-2025 Platelets (Bld) [#/Vol] 347 10*3/uL Normal 150-450 [facility] Comment on above: Performed By: #### E SR, CREAT, CBC, HEPATIC #### [facility] [address] [place] [address] Potassium [Moles/volume] in Serum or PlasmaOrdered By: Charla Tamez on 03-09-2025 Potassium [Moles/Vol] 4.2 mmol/L Normal 3.5-5.1 [facility] Comment on above: Performed By: #### E SR, CREAT, CBC, HEPATIC #### [facility] [address] [place] [address] Protein [Mass/volume] in Ser um or PlasmaOrdered By: Charla Tamez on 03-09-2025 Protein [Mass/Vol] 7.0 g/dL Normal 6.4-8.9 [facility] Comment on above: Performed By: #### E SR, CREAT, CBC, HEPATIC #### [address] Serum globulin measurement b y calculation (mass/volume)Ordered By: Charla Tamez on 03-09-2025 Globulin (S) [Mass/Vol] 2.4 g/dL Normal [facility] Comment on above: Performed By: #### E SR, CREAT, CBC, HEPATIC #### [address] Serum or plasma albumin/glob ulin mass ratioOrdered By: Charla Tamez on 03-09-2025 Albumin/Globulin [Mass ratio] 1.9 {ratio} Normal [facility] Comment on above: Performed By: #### E SR, CREAT, CBC, HEPATIC #### [facility] [address] [place] [address] Serum or plasma anion gap de terminationOrdered By: Charla Tamez on 03-09-2025 Anion gap [Moles/Vol] 9.4 mmol/L Normal 6.0-15.0 [facility] Comment on above: Performed By: #### E SR, CREAT, CBC, HEPATIC #### [facility] [address] [place] [address] [place] Sodium [Moles/volume] in Ser um or PlasmaOrdered By: Charla Tamez on 03-09-2025 Sodium [Moles/Vol] 138 mmol/L Normal 136-145 [facility] Comment on above: Performed By: #### E SR, CREAT, CBC, HEPATIC #### [facility] [address] [place] [id number] [facility] Urea nitrogen [Mass/volume] in Serum or PlasmaOrdered By: Charla Tamez on 03-09-2025 Urea nitrogen [Mass/Vol] 11 mg/dL Normal 7-25 [facility] Comment on above: Performed By: #### E SR, CREAT, CBC, HEPATIC #### [facility] [address] [place] [id number] [place] ANION GAPon 01-13-2025 Anion gap [Moles/Vol] 10.0 mmol/L Normal 8.0-16.0 [facility] Comment on above: Result Comment: ANIO N GAP = Sodium -(Chloride + CO2) Performed By: #### H H, BMP, ANION, EGFR1 #### [facility] [address] [place] [address] Anion Gapon 01-13-2025 Anion gap [Moles/Vol] 10 mmol/L 8.0 - 16.0 meq/L [facility] Comment on above: ANION GAP = Sodium - (Chloride + CO2) Performed at [facility] [address] [place] [address] BASIC METABOL PANELon 2024 Calcium [Mass/Vol] 8.3 mg/dL Low 8.8-10.2 [facility] Comment on above: Performed at [facility] [facility] [address] [place] [address] Performed By: #### H H, BMP, ANION, EGFR1 #### [facility] [address] [place] [address] CO2 [Moles/Vol] 26 mmol/L Normal 22-29 [facility] Comment on above: Performed By: #### H H, BMP, ANION, EGFR1 #### [facility] [address] [place] [address] Creatinine [Mass/Vol] 0.7 mg/dL Normal 0.7-1.2 [facility] Comment on above: Performed By: #### H H, BMP, ANION, EGFR1 #### [facility] [address] [place] [address] Glucose [Mass/Vol] 115 mg/dL High 74-109 [facility] Comment on above: Performed By: #### H H, BMP, ANION, EGFR1 #### [facility] [address] [place] [address] Urea nitrogen [Mass/Vol] 12 mg/dL Normal 8-23 [facility] Left Comment on above: Performed By: #### H H, BMP, ANION, EGFR1 #### [facility] [address] [place] [address] Chloride [Moles/Vol] 102 mmol/L Normal 98-111 [facility] Comment on above: Performed By: #### H H, BMP, ANION, EGFR1 #### [facility] [address] [place] [address] Potassium [Moles/Vol] 3.4 mmol/L Low 3.5-5.2 [facility] Comment on above: Performed By: #### H H, BMP, ANION, EGFR1 #### [facility] [address] [place] [address] Sodium [Moles/Vol] 138 mmol/L Normal 135-145 [facility] Comment on above: Performed By: #### H H, BMP, ANION, EGFR1 #### [facility] [address] [place] [address] Basic metabolic 2000 panelon 01-13-2025 Chloride [Moles/Vol] 102 mmol/L 98 - 11 1 meq/L [facility] Interpretation and review of laboratory results Abnormal [facility] [employer] Last 2 Left Potassium [Moles/Vol] 3.4 mmol/L Low 3.5 - 5.2 meq/L [facility] Sodium [Moles/Vol] 138 mmol/L 135 - 145 meq/L [facility] GFR, ESTIMATEDon 01-13-2025 GFR/1.73 sq M.predicted MDRD (S/P/Bld) [Vol rate/Area] mL/min/{1.73_m2} Normal >60 [facility] Comment on above: Pediatric calculator link https://www.kidney.org/professionals/kdoqi/gfr_calculatorped Effective Mar 31, 2022 These results are not intended for use in patients <18 years of age. eGFR results are calculated without a race factor using the 2020 CKD-EPI equation. Careful clinical correlation is recommended, particularly when comparing to results calculated using previous equations. The CKD-EPI equation is less accurate in patients with extremes of muscle mass, extra-renal metabolism of creatinine, excessive creatine ingestion, or following therapy that affects renal tubular secretion. Performed at [facility] [place] [address] Result Comment: Torsten shieldsc calculator link https://www.kidney.org/professionals/kdoqi/gfr_calculatorped Effective Mar 31, 2022 These results are not intended for use in patients <18 years of age. eGFR results are calculated without a race factor using the 2020 CKD-EPI equation. Careful clinical correlation is recommended, particularly when comparing to results calculated using previous equations. The CKD-EPI equation is less accurate in patients with extremes of muscle mass, extra-renal metabolism of creatinine, excessive creatine ingestion, or following therapy that affects renal tubular secretion. Performed By: #### H H, BMP, ANION, EGFR1 #### [facility] [facility] [address] [place] [address] HGB,HCTon 01-13-2025 Hematocrit (Bld) [Volume fraction] 32.3 % Low 42.0-52.0 [facility] [employer] Comment on above: Performed at [facility] [employer] [facility] [address] [place] [address] Performed By: #### H H, BMP, ANION, EGFR1 #### [facility] [address] [place] [address] Hemoglobin (Bld) [Mass/Vol] 10.9 g/dL Low 14.0-18.0 [facility] Comment on above: Performed By: #### H H, BMP, ANION, EGFR1 #### [facility] [address] [place] [address] Hemoglobin and Hematocrit pa jeremi (Bld)on 01-13-2025 Interpretation and review of laboratory results Abnormal [facility] [employer] No Panel Informationon 01-13 [facility] [employer] ANION GAPon 01-12-2025 Anion gap [Moles/Vol] 10.0 mmol/L Normal 8.0-16.0 [facility] Comment on above: Result Comment: ANIO N GAP = Sodium -(Chloride + CO2) Performed By: #### H H, BMP, ANION, EGFR1 #### [facility] [address] [place] [address] Anion Gapon 01-12-2025 Anion gap [Moles/Vol] 10 mmol/L 8.0 - 16.0 meq/L [facility] Comment on above: ANION GAP = Sodium - (Chloride + CO2) Performed at [facility] [address] [place] [address] BASIC METABOL PANELon 2024 Urea nitrogen [Mass/Vol] 12 mg/dL Normal 8-23 [facility] Comment on above: Performed By: #### H H, BMP, ANION, EGFR1 #### [facility] [address] [place] [address] Calcium [Mass/Vol] 8.4 mg/dL Low 8.8-10.2 [facility] Comment on above: Performed at [facility] [address] [place] [address] Performed By: #### H H, BMP, ANION, EGFR1 #### [place] [address] CO2 [Moles/Vol] 26 mmol/L Normal 22-29 [facility] Comment on above: Performed By: #### H H, BMP, ANION, EGFR1 #### [employer] [address] [place] [address] Creatinine [Mass/Vol] 0.7 mg/dL Normal 0.7-1.2 [facility] Comment on above: Performed By: #### H H, BMP, ANION, EGFR1 #### [facility] [address] [place] [address] Glucose [Mass/Vol] 127 mg/dL High 74-109 [facility] Comment on above: Performed By: #### H H, BMP, ANION, EGFR1 #### [facility] [address] [place] [address] Chloride [Moles/Vol] 103 mmol/L Normal 98-111 [facility] Comment on above: Performed By: #### H H, BMP, ANION, EGFR1 #### [employer] [address] [place] [address] Potassium [Moles/Vol] 3.8 mmol/L Normal 3.5-5.2 [facility] Comment on above: Performed By: #### H H, BMP, ANION, EGFR1 #### [facility] [address] [place] [address] Sodium [Moles/Vol] 139 mmol/L Normal 135-145 [facility] Comment on above: Performed By: #### H H, BMP, ANION, EGFR1 #### [employer] [facility] [address] [place] [address] Basic metabolic 2000 panelon 01-12-2025 Chloride [Moles/Vol] 103 mmol/L 98 - 11 1 meq/L [facility] [employer] Interpretation and review of laboratory results Abnormal [facility] [employer] Potassium [Moles/Vol] 3.8 mmol/L 3.5 - 5.2 meq/L [facility] [employer] Sodium [Moles/Vol] 139 mmol/L 135 - 145 meq/L [facility] [employer] Urea nitrogen [Mass/Vol] 12 mg/dL 8 - 23 mg/dL [facility] [employer] GFR, ESTIMATEDon 01-12-2025 GFR/1.73 sq M.predicted MDRD (S/P/Bld) [Vol rate/Area] mL/min/{1.73_m2} Normal >60 [facility] [employer] Comment on above: Pediatric calculator link https://www.kidney.org/professionals/kdoqi/gfr_calculatorped Effective Mar 31, 2022 These results are not intended for use in patients <18 years of age. eGFR results are calculated without a race factor using the 2020 CKD-EPI equation. Careful clinical correlation is recommended, particularly when comparing to results calculated using previous equations. The CKD-EPI equation is less accurate in patients with extremes of muscle mass, extra-renal metabolism of creatinine, excessive creatine ingestion, or following therapy that affects renal tubular secretion. Performed at [facility] [address] [place] [id number] Result Comment: Torsten atric calculator link https://www.kidney.org/professionals/kdoqi/gfr_calculatorped Effective Mar 31, 2022 These results are not intended for use in patients <18 years of age. eGFR results are calculated without a race factor using the 2020 CKD-EPI equation. Careful clinical correlation is recommended, particularly when comparing to results calculated using previous equations. The CKD-EPI equation is less accurate in patients with extremes of muscle mass, extra-renal metabolism of creatinine, excessive creatine ingestion, or following therapy that affects renal tubular secretion. Performed By: #### H H, BMP, ANION, EGFR1 #### [employer] [address] [place] [address] HGB,HCTon 01-12-2025 Hematocrit (Bld) [Volume fraction] 33.0 % Low 42.0-52.0 [facility] Comment on above: Performed By: #### A NIJESUS, EGFR1, HH, BMP #### [place] [address] Hemoglobin (Bld) [Mass/Vol] 11.1 g/dL Low 14.0-18.0 [facility] Comment on above: Performed By: #### A XENIA, EGFR1, HH, BMP #### [employer] [address] [place] [address] Hemoglobin and Hematocrit pa jeremi (Bld)on 01-12-2025 Hematocrit (Bld) [Volume fraction] 33 % Low 42.0 - 52.0 % [employer] Comment on above: Performed at [facility] [employer] [facility] [address] [place] [address] Interpretation and review of laboratory results Abnormal [facility] Last 2 Left No Panel Informationon 01-12 [facility] ANION GAPon 01-11-2025 Anion gap [Moles/Vol] 10.0 mmol/L Normal 8.0-16.0 [facility] Comment on above: Result Comment: ANIO N GAP = Sodium -(Chloride + CO2) Performed By: #### H H, BMP, ANION, EGFR1 #### [place] [address] Anion Gapon 01-11-2025 Anion gap [Moles/Vol] 10 mmol/L 8.0 - 16.0 meq/L [facility] Comment on above: ANION GAP = Sodium - (Chloride + CO2) Performed [place] [address] BASIC METABOL PANELon 2024 Calcium [Mass/Vol] 8.2 mg/dL Low 8.8-10.2 [facility] Comment on above: Performed at [facility] [address] [place] [address] Performed By: #### H H, BMP, ANION, EGFR1 #### [employer] [address] [place] [address] CO2 [Moles/Vol] 22 mmol/L Normal 22-29 [facility] Comment on above: Performed By: #### H H, BMP, ANION, EGFR1 #### [employer] [address] [place] [address] Creatinine [Mass/Vol] 0.8 mg/dL Normal 0.7-1.2 [facility] Comment on above: Performed By: #### H H, BMP, ANION, EGFR1 #### [employer] [address] [place] [address] Glucose [Mass/Vol] 162 mg/dL High 74-109 [facility] Comment on above: Performed By: #### H H, BMP, ANION, EGFR1 #### [employer] [address] [place] [address] Urea nitrogen [Mass/Vol] 13 mg/dL Normal 8-23 [facility] Comment on above: Performed By: #### H H, BMP, ANION, EGFR1 #### [employer] [address] [place] [address] Chloride [Moles/Vol] 106 mmol/L Normal 98-111 [facility] Comment on above: Performed By: #### H H, BMP, ANION, EGFR1 #### [employer] [address] [place] [address] Potassium [Moles/Vol] 4.1 mmol/L Normal 3.5-5.2 [facility] Comment on above: Performed By: #### H H, BMP, ANION, EGFR1 #### [employer] [address] [place] [address] Sodium [Moles/Vol] 138 mmol/L Normal 135-145 [facility] Comment on above: Performed By: #### H H, BMP, ANION, EGFR1 #### [employer] [address] [place] [id number] Basic metabolic 2000 panelon 01-11-2025 Chloride [Moles/Vol] 106 mmol/L 98 - 11 1 meq/L [employer] Interpretation and review of laboratory results Abnormal [facility] [employer] Potassium [Moles/Vol] 4.1 mmol/L 3.5 - 5.2 meq/L [employer] Sodium [Moles/Vol] 138 mmol/L 135 - 145 meq/L [facility] [employer] GFR, ESTIMATEDon 01-11-2025 GFR/1.73 sq M.predicted MDRD (S/P/Bld) [Vol rate/Area] mL/min/{1.73_m2} Normal >60 [facility] [employer] Comment on above: Pediatric calculator link https://www.kidney.org/professionals/kdoqi/gfr_calculatorped Effective Mar 31, 2022 These results are not intended for use in patients <18 years of age. eGFR results are calculated without a race factor using the 2020 CKD-EPI equation. Careful clinical correlation is recommended, particularly when comparing to results calculated using previous equations. The CKD-EPI equation is less accurate in patients with extremes of muscle mass, extra-renal metabolism of creatinine, excessive creatine ingestion, or following therapy that affects renal tubular secretion. Performed at [facility] [address] [place] [address] Result Comment: Pedi atric calculator link https://www.kidney.org/professionals/kdoqi/gfr_calculatorped Effective Mar 31, 2022 These results are not intended for use in patients <18 years of age. eGFR results are calculated without a race factor using the 2020 CKD-EPI equation. Careful clinical correlation is recommended, particularly when comparing to results calculated using previous equations. The CKD-EPI equation is less accurate in patients with extremes of muscle mass, extra-renal metabolism of creatinine, excessive creatine ingestion, or following therapy that affects renal tubular secretion. Performed By: #### H H, BMP, ANION, EGFR1 #### [employer] [address] [place] [address] HGB,HCTon 01-11-2025 Hematocrit (Bld) [Volume fraction] 35.9 % Low 42.0-52.0 [facility] Comment on above: Performed at [facility] [employer] ion Medical Lab [address] [place] [address] Performed By: #### H H, BMP, ANION, EGFR1 #### [facility] [address] [place] [address] Hemoglobin (Bld) [Mass/Vol] 12.0 g/dL Low 14.0-18.0 [facility] Comment on above: Performed By: #### H H, BMP, ANION, EGFR1 #### [facility] [address] [place] [address] Hemoglobin and Hematocrit pa jeremi (Bld)on 01-11-2025 Hemoglobin (Bld) [Mass/Vol] 12 g/dL Low [facility] Interpretation and review of laboratory results Abnormal [facility] No Panel Informationon 01-11 [facility] GRIFOLS GEL TYPE AND SCREENo n 01-10-2025 ABO and Rh group Nom (Bld) A Normal [facility] Comment on above: Performed By: #### G GTS #### [place] [address] GEL INDIRECT DEBBIE Negative Normal [facility] Comment on above: Performed By: #### G GTS #### [facility] [address] [place] [address] GEL RH GRIFOLS Negative Normal [facility] Comment on above: Performed By: #### G GTS #### [facility] [address] [place] [address] TYPE AND SCREENon 01-10-2025 ABO group Nom (Bld) A [facility] Indirect antiglobulin test.IgG specific reagent Ql Negative [facility] Comment on above: Performed at [facility] [employer] [facility] [address] [place] [address] Rh Nom (Bld) Negative [facility] XR LUMBAR SPINE 1 VWon 01-10 XR LUMBAR SPINE 1 VW MOBILE LATERAL LUMBAR SPINE: CLINICAL INFORMATION: L fusion COMPARISON: No prior study. TECHNIQUE: A single lateral mobile view of the lumbar spine was obtained following surgery performed Dr. Ospina. FINDINGS: Posterior lumbar fusion has been performed from L2-L5. Slight antegrade spondylolisthesis L upon L5, 6 mm. A disc spacer device is present at the L5-S1 level. Moderate disc space narrowing L2-3 level. IMPRESSION: Postop appearance of the lumbar spine. This report has been created using voice recognition software. It may contain minor errors which are inherent in voice recognition technology. Electronically signed by Dr. Dakota Sheppard Interpreted by: Dakota Sheppard MD Signed by: Dakota Sheppard MD 01/10/25 Final result Normal [facility] XR Lumbar spine Single viewo n 01-10-2025 Postop appearance of the lumbar spine. This report has been created using voice recognition software. It may contain minor errors which are inherent in voice recognition technology. Electronically signed by Dr. Dakota Sheppard [facility] MOBILE LATERAL LUMBAR SPINE: CLINICAL INFORMATION: L fusion COMPARISON: No prior study. TECHNIQUE: A single lateral mobile view of the lumbar spine was obtained following surgery performed Dr. Ospina. FINDINGS: Posterior lumbar fusion has been performed from L2-L5. Slight antegrade spondylolisthesis L upon L5, 6 mm. A disc spacer device is present at the L5-S1 level. Moderate disc space narrowing L2-3 level. [facility] Dakota Sheppard MD - 01/10/2025 MOBILE LATERAL LUMBAR SPINE: CLINICAL INFORMATION: L fusion COMPARISON: No prior study. TECHNIQUE: A single lateral mobile view of the lumbar spine was obtained following surgery performed Dr. Ospina. FINDINGS: Posterior lumbar fusion has been performed from L2-L5. Slight antegrade spondylolisthesis L upon L5, 6 mm. A disc spacer device is present at the L5-S1 level. Moderate disc space narrowing L2-3 level. IMPRESSION: Postop appearance of the lumbar spine. This report has been created using voice recognition software. It may contain minor errors which are inherent in voice recognition technology. Electronically signed by Dr. Dakota Sheppard [facility] Radiology Study observation (narrative) [facility] XR Lumbar spine Single viewO rdered By: Dakota Sheppard on 01-10-2025 [facility] Last 2 Left Work Phone: Urine Cultureon 01-03-2025 Bacteria identified Cx Nom (U) No Growth 2 Days PERFORMED BY: [facility] [address] [id number] PATHOLOGIST FLOOR STEWARD/STEWARDESS YOSEF KUMAR M.D. Normal [facility] Comment on above: Performed By: #### E SR, CREAT, CBC, HEPATIC #### [facility] [address] [id number] [facility] Urine cultureOrdered By: Risa Muniz on 01-03-2025 Bacteria identified Cx Nom (U) No Growth 2 Days [facility] Office Visiton 12-29-2024 Follow-up visit [id number] Timur Francisco Faina 1950 M Date Provider Department Center 12/29/2024 Luciana-MARCELINA ESCAMILLA Family History Problem Relation Age of Onset Diabetes Mother Stroke Mother Family Status - Relation Status Age at Mother Level of Service:95273 [place] OFFICE/OUTPATIENT NEW MODERATE MDM 45 MINUTES Normal [facility] CYTOLOGY NON-GYNon 12-21 AP DISCLAIMER [facility] Comment on above: Laboratory Developed Test (LDT) Disclaimer: Performance characteristics of immunohistochemical, immunofluorescent, and chromogenic in-situ hybridization tests have been determined by the performing laboratory within [facility] Pathology and Laboratory Medicine Department ([facility], [facility], [facility], [facility], [facility], [facility], or [facility]) in a manner consistent with CLIA requirements. One or more of these tests may not have been cleared or approved by the FDA. RT-PLM is regulated under CLIA as qualified to perform high-complexity testing. These tests are used for clinical purposes. These should not be regarded as investigational or for research. Positive and negative controls stain appropriately. [facility] CASE REPORT [facility] Comment on above: Medical Cytology Rep ort Case: [id number] Authorizing Provider: Nanci Carvajal MD Collected: 12/20/2024 01:59 PM Ordering Location: Urology Received: 12/20/2024 04:07 PM Pathologist: Tomás Andersen MD, PhD Specimen: Bladder [facility] CLINICAL HISTORY Hx of bladder cancer [facility] FINAL DIAGNOSIS A - Bladder [facility] Comment on above: Suspicious for high- grade urothelial carcinoma. at 1524 EDT [facility] FINAL PERFORMING LAB [facility] Comment on above: Technical component, supply assistant screening performed at: [facility], [address] [place] [address], [place] [address] CLIA: [id number] Diagnostic interpretation performed at: [facility], [address] [place] [address] CLIA# [id number] Janitor Caretaker: Reid Monteiro MD [facility] GROSS DESCRIPTION A. Bladder [facility] Comment on above: 60 cc clear yellow f luid. ThinPrep prepared. Specimen Type: URINE SPECIMEN [facility] Address: [address] [place] [address] Original Ordering Provider: NANCI CARVAJAL [facility] CNOVon 12-20-2024 CNOV Office Visit (UROSMN) TIMUR FRANCISCO ([id number]) 1950 M Date Time Provider Department 12/20/24 1:20 PM [facility] During your visit today, we recorded the following information about you: Radha Yung RN 12/20/2024 2:07 PM Signed Patient ID with (2) Identifiers, Verified by: Radha Yung RN Actual procedure/procedure scheduled: Yes Performing provider/scheduled provider: Yes Patient was roomed in: Q9- 10 C Software Developer offered:Patient accepts, visit chaperoned by Patient arrived [...] Education Session: None Instruction Provided To: Patient Bulb Sorter Present: not applicable Discipline: Nursing Learning Topic: [...] S/p cystoscopy 02/02/2019 (Trina) S/p TURBT 12/07/2019 (Wei) - path: benign s/p cystoscopy w/ cysview, [...] in retroverted fashion. Findings: Normal UOs Multiple katty (more content not included)... Normal [facility] CYTOLOGY NON-GYNon 5 AP DISCLAIMER Normal [facility] Comment on above: Order Comment: Speci men Type: URINE SPECIMEN [facility] Address: [address] [place] [address] Result Comment: Wilber helm Developed Test (LDT) Disclaimer: Performance characteristics of immunohistochemical, immunofluorescent, and chromogenic in-situ hybridization tests have been determined by the performing laboratory within [facility] Pathology and Laboratory Medicine Department ([facility], [facility], [facility], [facility], [facility], [facility], or [facility]) in a manner consistent with CLIA requirements. One or more of these tests may not have been cleared or approved by the FDA. RT-PLM is regulated under CLIA as qualified to perform high-complexity testing. These tests are used for clinical purposes. These should not be regarded as investigational or for research. Positive and negative controls stain appropriately. Performed By: #### C YTONON #### [facility] CLIA [id number] [address] [place] [address] [place] CASE REPORT Normal [facility] Comment on above: Order Comment: Speci men Type: URINE SPECIMEN [facility] Address: [address] [place] [address] Result Comment: [facility] Cytology Report Case: [id number] Authorizing Provider: Nanci Carvajal MD Collected: 12/20/2024 01:59 PM Ordering Location: Urology Received: 12/20/2024 04:07 PM Pathologist: Tomás Andersen MD, PhD Specimen: Bladder Performed By: #### C ADENONON #### [facility] CLIA [id number] [address] [place] [address] CLINICAL HISTORY Hx of bladder cancer Normal [facility] Comment on above: Order Comment: Speci men Type: URINE SPECIMEN [facility] Address: [address] [place] [address] Performed By: #### C YTONON #### [facility] CLIA [id number] [address] [place] [address] OF [place] FINAL DIAGNOSIS A - Bladder Normal [facility] Comment on above: Order Comment: Speci men Type: URINE SPECIMEN [facility] Address: [address] [place] [address] Result Comment: Susp icious for high-grade urothelial carcinoma. at 1524 EDT Performed By: #### C YTONON #### [facility] CLIA [id number] [address] [place] [address] [place] FINAL PERFORMING LAB Normal [facility] Comment on above: Order Comment: Speci men Type: URINE SPECIMEN [facility] Address: [address] [place] [address] Result Comment: Tech nical component, supply assistant screening performed at: [facility], [address] [place] [address] CLIA: [id number] Diagnostic interpretation performed at: [facility], [address] [place] [address] CLIA# [id number] Janitor Caretaker: Reid Monteiro MD Performed By: #### C YTONON #### [facility] CLIA [id number] [address] [place] [address] [place] GROSS DESCRIPTION A. Bladder Normal [facility] Comment on above: Order Comment: Speci men Type: URINE SPECIMEN [facility] Address: [address] [place] [address] Result Comment: 60 c c clear yellow fluid. ThinPrep prepared. Performed By: #### C YTONON #### [facility] CLIA [id number] [address] [place] [address] [place] Alanine aminotransferase [En zymatic activity/volume] in Serum or PlasmaOrdered By: Charla Tamez on 12-13-2024 ALT [Catalytic activity/Vol] 16 U/L Normal 7-52 [facility] Comment on above: Performed By: #### C BC, ESR, CMP #### [facility] [address] [place] [address] [place] Albumin [Mass/volume] in Ser um or Plasma by Bromocresol green (BCG) dye binding methoOrdered By: Charla Tamez on 12-13-2024 Albumin BCG dye [Mass/Vol] 4.4 g/dL 3.5-5.7 [facility] Alkaline phosphatase [Enzyma tic activity/volume] in Serum or PlasmaOrdered By: Charla Tamez on 12-13-2024 ALP [Catalytic activity/Vol] 79 U/L Normal 34-104 [facility] Comment on above: Result Comment: PERF ORMED BY: [place] [address] PATHOLOGIST FLOOR STEWARD/STEWARDESS YOSEF KUMAR M.D. Performed By: #### C BC, ESR, CMP #### [facility] [address] Aspartate aminotransferase [ Enzymatic activity/volume] in Serum or PlasmaOrdered By: Charla Tamez on 12-13-2024 AST [Catalytic activity/Vol] 18 U/L Normal 13-39 [facility] Comment on above: Performed By: #### C BC, ESR, CMP #### [facility] [address] [place] [address] [place] Basophils [#/volume] in Bloo d by Automated countOrdered By: Charla Tamez on 12-13-2024 Basophils (Bld) [#/Vol] 0.0 10*3/uL Normal 0.0-0.2 [facility] Comment on above: Performed By: #### C BC, ESR, CMP #### [facility] [address] [place] [address] [place] Basophils/100 leukocytes in Blood by Automated countOrdered By: Charla Tamez on 12-13-2024 Basophils/100 WBC (Bld) 0.6 % Normal . [facility] Comment on above: Performed By: #### C BC, ESR, CMP #### [facility] [address] [place] [address] [place] Bilirubin.total [Mass/volume ] in Serum or PlasmaOrdered By: Charla Tamez on 12-13-2024 Bilirubin [Mass/Vol] 0.6 mg/dL Normal 0.3-1.0 [facility] Comment on above: Performed By: #### C BC, ESR, CMP #### [facility] [address] [place] [address] [place] Calcium [Mass/volume] in Ser um or PlasmaOrdered By: Charla Tamez on 12-13-2024 Calcium [Mass/Vol] 9.1 mg/dL Normal 8.6-10.3 [facility] Comment on above: Performed By: #### C BC, ESR, CMP #### [facility] [address] Carbon dioxide, total [Moles /volume] in Serum or PlasmaOrdered By: Charla Tamez on 12-13-2024 CO2 [Moles/Vol] 30.4 mmol/L Normal 21.0-31.0 [facility] Comment on above: Performed By: #### C BC, ESR, CMP #### [facility] [address] Chloride [Moles/volume] in S honey or PlasmaOrdered By: Charla Tamez on 12-13-2024 Chloride [Moles/Vol] 104 mmol/L Normal 98-107 [facility] Comment on above: Performed By: #### C BC, ESR, CMP #### [address] Complete Blood Count Auto Di ffon 12-13-2024 Mean Corpuscular HGB Conc 34.8 g/dL Normal 32.5-35.6 [facility] Comment on above: Performed By: #### C BC, ESR, CMP #### [facility] [address] NRBC% 0.1 /100{WBC} Normal 0-0.5 [facility] Comment on above: Performed By: #### C BC, ESR, CMP #### [address] White Blood Count 5.8 [CFU]/mL Normal 4.1-10.5 [facility] Comment on above: Performed By: #### C BC, ESR, CMP #### [facility] [address] Comprehensive Metabolic Pane jonatan 12-13-2024 Albumin [Mass/Vol] 4.4 g/dL Normal 3.5-5.7 [facility] Comment on above: Performed By: #### C BC, ESR, CMP #### [facility] [address] GFR/1.73 sq M.predicted MDRD (S/P/Bld) [Vol rate/Area] mL/min/{1.73_m2} Normal [facility] Comment on above: Performed By: #### C BC, ESR, CMP #### [address] Creatinine [Mass/volume] in Serum or PlasmaOrdered By: Charla Tamez on 12-13-2024 Creatinine [Mass/Vol] 0.85 mg/dL Normal 0.70-1.30 [facility] Comment on above: Performed By: #### C BC, ESR, CMP #### [facility] [address] Eosinophils [#/volume] in Bl ood by Automated countOrdered By: Charla Tamez on 12-13-2024 Eosinophils (Bld) [#/Vol] 0.1 10*3/uL Normal 0.0-0.45 [facility] Comment on above: Performed By: #### C BC, ESR, CMP #### [address] Eosinophils/100 leukocytes i n Blood by Automated countOrdered By: Charla Tamez on 12-13-2024 Eosinophils/100 WBC (Bld) 1.7 % Normal . [facility] Comment on above: Performed By: #### C BC, ESR, CMP #### [address] Erythrocyte Sedimentation Ra pennie 12-13-2024 ESR (Bld) [Velocity] 5 mm/h Normal 0-19 [facility] Comment on above: Result Comment: PERF ORMED BY: [place] [address] PATHOLOGIST FLOOR STEWARD/STEWARDESS YOSEF KUMAR M.D. Performed By: #### C BC, ESR, CMP #### [address] Erythrocyte distribution wid th [Ratio] by Automated countOrdered By: Charla Tamez on 12-13-2024 Erythrocyte distribution width (RBC) [Ratio] 14.3 % Normal 12.0-14.8 [facility] Comment on above: Performed By: #### C BC, ESR, CMP #### [facility] [address] Erythrocyte sedimentation ra te by Photometric methodOrdered By: Charla Tamez on 12-13-2024 ESR Photometric method (Bld) [Velocity] 5 mm/hr 0-19 [facility] Erythrocytes [#/volume] in B lood by Automated countOrdered By: Charla Tamez on 12-13-2024 RBC (Bld) [#/Vol] 4.45 10*6/uL Normal 3.90-5.60 [facility] Comment on above: Performed By: #### C BC, ESR, CMP #### [facility] [address] Glucose [Mass/volume] in Ser um or PlasmaOrdered By: Charla Tamez on 12-13-2024 Glucose [Mass/Vol] 130 mg/dL High 70-100 [facility] Comment on above: ADA recommended refe rence rangeRandom Glucose Reference Range is dependent on time and content of last meal. Glucose of more than 200 mg/dL in a nonstressed, ambulatory subject supports the diagnosis of Diabetes Mellitus. Result Comment: [place] om Glucose Reference Range is dependent on time and content of last meal. Glucose of more than 200 mg/dL in a nonstressed, ambulatory subject supports the diagnosis of Diabetes Mellitus. ADA recommended reference range Performed By: #### C BC, ESR, CMP #### [facility] [address] Hematocrit [Volume Fraction] of Blood by Automated countOrdered By: Charla Tamez on 12-13-2024 Hematocrit (Bld) [Volume fraction] 40.9 % Normal 38.8-50.0 [facility] Comment on above: Performed By: #### C BC, ESR, CMP #### [facility] [address] Hemoglobin [Mass/volume] in BloodOrdered By: Charla Tamez on 12-13-2024 Hemoglobin (Bld) [Mass/Vol] 14.2 g/dL Normal 13.0-17.0 [facility] Comment on above: Performed By: #### C BC, ESR, CMP #### [facility] [address] Leukocytes [#/volume] correc basim for nucleated erythrocytes in Blood by Automated counOrdered By: Charla Tamez on 12-13-2024 WBC corrected for nucl RBC Auto (Bld) [#/Vol] 5.8 10*3/uL 4.1-10.5 [facility] Leukocytes [#/volume] in Blo od by Automated countOrdered By: Charla Tamez on 12-13-2024 WBC (Bld) [#/Vol] 5.8 10*3/uL Normal 4.1-10.5 [facility] Comment on above: Performed By: #### C BC, ESR, CMP #### [address] Lymphocytes [#/volume] in Bl ood by Automated countOrdered By: Charla Tamez on 12-13-2024 Lymphocytes (Bld) [#/Vol] 1.5 10*3/uL Normal 1.00-4.8 [facility] Comment on above: Performed By: #### C BC, ESR, CMP #### [address] Lymphocytes/100 leukocytes i n Blood by Automated countOrdered By: Charla Tamez on 12-13-2024 Lymphocytes/100 WBC (Bld) 25.2 % Normal . [facility] Comment on above: Performed By: #### C BC, ESR, CMP #### [address] MCH [Entitic mass] by Automa basim countOrdered By: Charla Tamez on 12-13-2024 MCH (RBC) [Entitic mass] 32.0 pg Normal 27.5-35.2 [facility] Comment on above: Performed By: #### C BC, ESR, CMP #### [address] MCHC Auto (RBC) [Mass/Vol]Or dered By: Charla Tamez on 12-13-2024 MCHC (RBC) [Mass/Vol] 34.8 g/dL 32.5-35.6 [facility] MCV [Entitic volume] by Auto mated countOrdered By: Charla Tamez on 12-13-2024 MCV (RBC) [Entitic vol] 92.0 fL Normal 83.5-101 [facility] Comment on above: Performed By: #### C BC, ESR, CMP #### [facility] [address] [place] [address] [place] Monocytes [#/volume] in Bloo d by Automated countOrdered By: Charla Tamez on 12-13-2024 Monocytes (Bld) [#/Vol] 0.4 10*3/uL Normal 0.0-0.8 [facility] Comment on above: Performed By: #### C BC, ESR, CMP #### [facility] [address] [place] [address] [place] Monocytes/100 leukocytes in Blood by Automated countOrdered By: Charla Tamez on 12-13-2024 Monocytes/100 WBC (Bld) 7.4 % Normal . [facility] Comment on above: Performed By: #### C BC, ESR, CMP #### [place] [address] [place] Neutrophils [#/volume] in Bl ood by Automated countOrdered By: Charla Tamez on 12-13-2024 Neutrophils (Bld) [#/Vol] 3.8 10*3/uL Normal 1.8-7.7 [facility] Comment on above: Performed By: #### C BC, ESR, CMP #### [facility] [address] [place] [address] [place] Neutrophils/100 leukocytes i n Blood by Automated countOrdered By: Charla Tamez on 12-13-2024 Neutrophils/100 WBC (Bld) 65.1 % Normal . [facility] Comment on above: Performed By: #### C BC, ESR, CMP #### [address] No Panel InformationOrdered By: Dagmar Kenny on 12-13-2024 [facility] [employer] Work Phone: No Panel InformationOrdered By: Charla Tamez on 12-13-2024 Estimated GFR (CKD-EPI) > 60.0 mL/Min [facility] Creatinine Clearance (Chem N/A [facility] Nucleated erythrocytes [Pres ence] in Blood by Automated countOrdered By: Charla Tamez on 12-13-2024 Nucleated RBC Auto Ql (Bld) 0.1 /100{WBC} 0-0.5 [facility] Platelet mean volume [Entiti c volume] in Blood by Automated countOrdered By: Charla Tamez on 12-13-2024 Platelet mean volume (Bld) [Entitic vol] 8.2 fL Normal 6.6-10.1 [facility] Comment on above: Performed By: #### C BC, ESR, CMP #### [facility] [address] [place] [address] [place] Platelets [#/volume] in Bloo d by Automated countOrdered By: Charla Tamez on 12-13-2024 Platelets (Bld) [#/Vol] 304 10*3/uL Normal 150-450 [facility] Comment on above: Performed By: #### C BC, ESR, CMP #### [facility] [address] [place] [address] [place] Potassium [Moles/volume] in Serum or PlasmaOrdered By: Charla Tamez on 12-13-2024 Potassium [Moles/Vol] 4.1 mmol/L Normal 3.5-5.1 [facility] Comment on above: Performed By: #### C BC, ESR, CMP #### [facility] [address] [place] [address] [place] Protein [Mass/volume] in Ser um or PlasmaOrdered By: Charla Tamez on 12-13-2024 Protein [Mass/Vol] 6.6 g/dL Normal 6.4-8.9 [facility] Comment on above: Performed By: #### C BC, ESR, CMP #### [facility] [address] [place] [address] [place] Serum globulin measurement b y calculation (mass/volume)Ordered By: Charla Tamez on 12-13-2024 Globulin (S) [Mass/Vol] 2.2 g/dL Normal [facility] Comment on above: Performed By: #### C BC, ESR, CMP #### [facility] [address] [place] [address] Serum or plasma albumin/glob ulin mass ratioOrdered By: Charla Tamez on 12-13-2024 Albumin/Globulin [Mass ratio] 2.0 {ratio} Normal [facility] Comment on above: Performed By: #### C BC, ESR, CMP #### [address] Serum or plasma anion gap de terminationOrdered By: Charla Tamez on 12-13-2024 Anion gap [Moles/Vol] 9.7 mmol/L Normal 6.0-15.0 [facility] Comment on above: Performed By: #### C BC, ESR, CMP #### [address] Sodium [Moles/volume] in Ser um or PlasmaOrdered By: Charla Tamez on 12-13-2024 Sodium [Moles/Vol] 140 mmol/L Normal 136-145 [facility] Comment on above: Performed By: #### C BC, ESR, CMP #### [address] Urea nitrogen [Mass/volume] in Serum or PlasmaOrdered By: Charla Tamez on 12-13-2024 Urea nitrogen [Mass/Vol] 11 mg/dL Normal 7-25 [facility] Comment on above: Performed By: #### C BC, ESR, CMP #### [address] No Panel Informationon 11-08 [facility] C reactive protein [Mass/vol ume] in Serum or PlasmaOrdered By: Zhou Fischer on 10-05-2024 CRP [Mass/Vol] C reactive protein [Mass/volume] in Serum or Plasma 0.0-0.5 [facility] C-Reactive Proteinon 025 CRP [Mass/Vol] mg/L Normal 0.0-0.5 [facility] Comment on above: Result Comment: PERF ORMED BY: [place] [address] PATHOLOGIST FLOOR STEWARD/STEWARDESS BETY CATALAN M.D. Performed By: #### E SR, CREAT, CBC, HEPATIC #### [place] [id number] [facility] Erythrocyte Sedimentation Ra pennie 10-05-2024 ESR (Bld) [Velocity] 3 mm/h Normal 0-19 [facility] Comment on above: Result Comment: PERF ORMED BY: [place] [address] PATHOLOGIST FLOOR STEWARD/STEWARDESS BETY CATALAN M.D. Performed By: #### E SR, CRP, URIC #### [address] Erythrocyte sedimentation ra te by Photometric methodOrdered By: Zhou Fischer on 10-05-2024 ESR Photometric method (Bld) [Velocity] Erythrocyte sedimentation rate by Photometric method 0-19 [facility] Urate [Mass/volume] in Serum or PlasmaOrdered By: Zhou Fischer on 10-05-2024 Urate [Mass/Vol] Urate [Mass/volume] in Serum or Plasma 4.4-7.6 [facility] Uric Acidon 10-05-2024 Urate [Mass/Vol] 5.4 mg/dL Normal 4.4-7.6 [facility] Comment on above: Performed By: #### E SR, CRP, URIC #### [address] No Panel InformationOrdered By: Jose Francisco Dickey on 09-07-2024 Baseline Diastolic BP 81 mmHg [employer] Work Phone: Baseline HR 57 BPM [employer] Work Phone: Baseline Systolic BP 126 mmHg [employer] Phone: LV EDV BP 110 mL 67 - 155 mL [employer] Work Phone: LV ESV BP 37 mL 22 - 58 mL [employer] Work Phone: LVOT Stroke Volume 74 mL [place] [employer] [employer] Phone: Nuc Stress EF 67 % Mao Garcia [employer] Phone: Stress Diastolic BP 79 mmHg [place] [employer] Phone: Stress Estimated Workload 1 METS [place] Phone: Stress Peak HR 82 BPM [place] [employer] Work Phone: Stress Percent HR Achieved 56 % [place] Phone: Stress Rate Pressure Product [address]21 BPM*mmHg Mao Gracia [employer] Phone: Stress ST Depression 0 mm [place] Phone: Stress Systolic BP 133 mmHg [place] [employer] Phone: Stress Target HR 147 bpm [place] [employer] Work Phone: TID 1.15 Mao Garcia [employer] Phone: Mao Garcia [employer] Phone: No Panel Informationon 09-07 Stress Combined [...] RPACS STRESS Radiology Study observation (narrative) Mao hdz [facility] X-ray reportOrdered By: Antoine Geronimo on 08-30-2024 Study report [facility] Main [address] [address] XRay Report Signed Patient: Timur Francisco MR#: [id number] : 1950 Acct:[id number] Age/Sex: 73 / M ADM Date: 5 Loc: ICXD Room: Type: REG CLI Attending Dr: Zhou Fischer MD Copies to: [...] process. Impression dictated by: Horacio Geronimo Jr., DAidaOAida08/30/2024 3:20 PM Dictation Location: [place] [address] Transcribed By: [facility] 08/30/24 1520 Dictated By: Horacio Geronimo Jr, DO 08/30/24 1519 Signed By: 08/30/24 1520 [facility] XR foot RT 2Von 08-30-2024 XR foot RT 2V [facility] Main [address] [address] XRay Report Signed Patient: Timur Francisco MR#: [id number] : 1950 Acct:[id number] Age/Sex: 73 / M ADM Date: 08/30/24 Loc: ICXD Room: Type: [facility] CLI Attending Dr: Zhou Fischer MD Copies to: [...] process. Impression dictated by: Horacio Geronimo Jr., D.OAida08/30/2024 3:20 PM Dict[employer] Location: [place] [address] Transcribed By: [facility] 08/30/24 1520 Dictated By: Horacio Geronimo Jr, DO 08/30/24 1519 Signed By: 08/30/24 1520 Normal [facility] MR BRAIN WITH AND WITHOUT CO NTRASTon 08-18-2024 MR BRAIN WITH AND WITHOUT CONTRAST EXAMINATION: MR BRAIN WITH AND WITHOUT CONTRAST HISTORY: Diplopia PT/FAX Injury/Trauma or Illness?:Illness/Oth er How long have you had these symptoms (acute/chronic)?:Chr onic Reason for exam?:Worsening double vision x 2 years Type of Exam?:Initial H53.2 Diplopia PT/FAX Injury/Trauma or Illness?:Illness/Oth er TECHNIQUE: Multiplanar multiecho sequences were performed through [...] or abnormal enhancement within limitations study. 2. Monu-gb-cnyzycfc amount of chronic microvascular ischemic changes. Workstation ID: [id number] Dictated by: SHAW JULIAN on Sat Aug 20, 2024 11:56:56 AM EST Transcribed by: SHAW JULIAN on Sat Aug 20, 2024 11:56:56 AM EST Finalized by: SHAW JULIAN on [facility] Aug 20, 2024 11:56:56 AM EST Normal [facility] Comment on above: Order Comment: PT/FA X Injury/Trauma or Illness?:Illness/Other How long have you had these symptoms (acute/chronic)?:Chronic Reason for exam?:Worsening double vision x 2 years Type of Exam?:Initial Additional signs and symptoms?:na [facility] CYTOLOGY NON-GYNon 06-09 [facility] CASE REPORT [facility] Comment on above: Medical Cytology Rep ort Case: [id number] Authorizing Provider: Nanci Carvajal MD Collected: 06/07/2024 02:18 PM Ordering Location: Urology Received: 06/07/2024 08:24 PM Pathologist: Keiko Roque MD Specimen: Urine, Midstream [facility] CLINICAL HISTORY history of bladder canccer [facility] FINAL DIAGNOSIS [facility] Comment on above: A - Urine, Midstream Suspicious for high-grade urothelial carcinoma (see comment). FINAL PERFORMING LAB [facility] Comment on above: Technical component, supply assistant screening performed at [facility], [address] [facility] [address] CLIA# [id number] Diagnostic interpretation [facility] [address] [facility] [address] CLIA# [id number] Janitor Caretaker: Reid Monteiro M.D. [facility] GROSS DESCRIPTION [facility] Comment on above: A. Urine, Midstream 100 cc clear yellow fluid. ThinPrep prepared. Specimen Type: URINE SPECIMEN [facility] Address: [place] [id number] Original Ordering Provider: NANCI CARVAJAL [facility] CNOVon 06-07-2024 CNOV Office Visit (UROSMN) TIMUR FRANCISCO ([id number]) 1950 M Date Time Provider Department 06/07/24 2:00 PM NANCI CARVAJAL During your visit today, we recorded the following information about you: Gregorio Higgins RN 06/07/2024 2:17 PM Signed Patient ID with (2) Identifiers, Verified by: Gregorio Higgins RN Actual procedure/procedure scheduled: Yes Performing provider/scheduled provider: Yes Patient was roomed in: Q9- 06 C Software Developer offered:Patient declines Patient arrived in the room [...] Education Session: None Instruction Provided To: Patient Bulb Sorter Present: not applicable Discipline: Nursing Learning Topic: [...] 6 mon (more content not included)... Normal [facility] CYTOLOGY NON-GYNon CASE REPORT Normal [facility] Comment on above: Order Comment: Speci men Type: URINE SPECIMEN [facility] Address: [address] [place] [address] Result Comment: [facility] Cytology Report Case: [id number] Authorizing Provider: Nanci Carvajal MD Collected: 06/07/2024 02:18 PM Ordering Location: Urology Received: 06/07/2024 08:24 PM Pathologist: Keiko Roque MD Specimen: Urine, Midstream Performed By: #### C YTONON #### [facility] CLIA [id number] [address] [place] [address] [place] CLINICAL HISTORY history of bladder canccer Normal [facility] Comment on above: Order Comment: Speci men Type: URINE SPECIMEN [facility] Address: [address] [place] [address] Performed By: #### C YTONON #### [facility] CLIA [id number] [address] [place] [address] [place] FINAL DIAGNOSIS Normal [facility] Comment on above: Order Comment: Speci men Type: URINE SPECIMEN [facility] Address: [address] [place] [address] Result Comment: A - Urine, Midstream Suspicious for high-grade urothelial carcinoma (see comment). Performed By: #### C YTONON #### [facility] CLIA [id number] [address] [place] [address] [place] FINAL PERFORMING LAB Normal [facility] Comment on above: Order Comment: Speci men Type: URINE SPECIMEN [facility] Address: [address] [place] [address] Result Comment: Tech nical component, supply assistant screening performed at [facility], [address] [place] [address] CLIA# [id number] Diagnostic interpretation performed at [facility], [address] [place] [address] CLIA# [id number] Janitor Caretaker: Reid Monteiro M.D. Performed By: #### C YTONON #### [facility] CLIA [id number] [address] [place] [address] [place] GROSS DESCRIPTION Normal [facility] Comment on above: Order Comment: Speci men Type: URINE SPECIMEN [facility] Address: [address] [place] [address] Result Comment: A. U rine, Midstream 100 cc clear yellow fluid. ThinPrep prepared. Performed By: #### C YTONON #### [facility] CLIA [id number] [address] [place] [address] [place] Alanine aminotransferase [En zymatic activity/volume] in Serum or PlasmaOrdered By: Zhou Fischer on 05-02-2024 ALT [Catalytic activity/Vol] 32 U/L Normal 7-52 [facility] Comment on above: Performed By: #### E SR, CREAT, CBC, HEPATIC #### [facility] [address] Albumin [Mass/volume] in Ser um or Plasma by Bromocresol green (BCG) dye binding methoOrdered By: Zhou Fischer on 05-02-2024 Albumin BCG dye [Mass/Vol] 4.4 g/dL 3.5-5.7 [facility] Alkaline phosphatase [Enzyma tic activity/volume] in Serum or PlasmaOrdered By: Zhou Fischer on 05-02-2024 ALP [Catalytic activity/Vol] 66 U/L Normal 34-104 [facility] Comment on above: Performed By: #### E SR, CREAT, CBC, HEPATIC #### [address] Aspartate aminotransferase [ Enzymatic activity/volume] in Serum or PlasmaOrdered By: Zhou Fischer on 05-02-2024 AST [Catalytic activity/Vol] 27 U/L Normal 13-39 [facility] Comment on above: Performed By: #### E SR, CREAT, CBC, HEPATIC #### [address] Automated basophil %Ordered By: Zhou Fischer on 05-02-2024 Basophils/100 WBC (Bld) 0.7 % Normal . [facility] Comment on above: Performed By: #### E SR, CREAT, CBC, HEPATIC #### [address] Automated basophil countOrde red By: Zhou Fischer on 05-02-2024 Basophils (Bld) [#/Vol] 0.0 10*3/uL Normal 0.0-0.2 [facility] Comment on above: Performed By: #### E SR, CREAT, CBC, HEPATIC #### [address] Automated blood monocyte cou ntOrdered By: Zhou Fischer on 05-02-2024 Monocytes (Bld) [#/Vol] 0.6 10*3/uL Normal 0.0-0.8 [facility] Comment on above: Performed By: #### E SR, CREAT, CBC, HEPATIC #### [address] Automated eosinophil %Ordere d By: Zhou Fischer on 05-02-2024 Eosinophils/100 WBC (Bld) 2.4 % Normal . [facility] Comment on above: Performed By: #### E SR, CREAT, CBC, HEPATIC #### [facility] [address] [place] [address] Automated eosinophil countOr dered By: Zhou Fischer on 05-02-2024 Eosinophils (Bld) [#/Vol] 0.1 10*3/uL Normal 0.0-0.45 [facility] Comment on above: Performed By: #### E SR, CREAT, CBC, HEPATIC #### [address] Automated monocyte %Ordered By: Zhou Fischer on 05-02-2024 Monocytes/100 WBC (Bld) 11.5 % Normal . [facility] Comment on above: Performed By: #### E SR, CREAT, CBC, HEPATIC #### [address] Automated neutrophil %Ordere d By: Zhou Fischer on 05-02-2024 Neutrophils/100 WBC (Bld) 55.5 % Normal . [facility] Comment on above: Performed By: #### E SR, CREAT, CBC, HEPATIC #### [address] Bilirubin.direct [Mass/volum e] in Serum or PlasmaOrdered By: Zhou Fischer on 05-02-2024 Bilirubin.direct [Mass/Vol] 0.10 mg/dL 0.03-0.18 [facility] Bilirubin.total [Mass/volume ] in Serum or PlasmaOrdered By: Zhou Fischer on 05-02-2024 Bilirubin [Mass/Vol] 0.5 mg/dL Normal 0.3-1.0 [facility] Comment on above: Performed By: #### E SR, CREAT, CBC, HEPATIC #### [address] Complete Blood Count Auto Di ffon 05-02-2024 Mean Corpuscular HGB Conc 34.8 g/dL Normal 32.5-35.6 [facility] Comment on above: Performed By: #### E SR, CREAT, CBC, HEPATIC #### [address] NRBC% 0.2 /100{WBC} Normal 0-0.5 [facility] Comment on above: Performed By: #### E SR, CREAT, CBC, HEPATIC #### [address] Creatinineon 05-02-2024 GFR/1.73 sq M.predicted MDRD (S/P/Bld) [Vol rate/Area] mL/min/{1.73_m2} Normal [facility] Comment on above: Result Comment: PERF ORMED BY: [place] [address] PATHOLOGIST FLOOR STEWARD/STEWARDESS LIZANDRO HOFF M.D. Performed By: #### E SR, CREAT, CBC, HEPATIC #### [address] Creatinine [Mass/volume] in Serum or PlasmaOrdered By: Zhou Fischer on 05-02-2024 Creatinine [Mass/Vol] 0.79 mg/dL Normal 0.70-1.30 [facility] Comment on above: Performed By: #### E SR, CREAT, CBC, HEPATIC #### [address] Erythrocyte Sedimentation Ra pennie 05-02-2024 ESR (Bld) [Velocity] 7 mm/h Normal 0-19 [facility] Comment on above: Result Comment: PERF ORMED BY: [place] [address] PATHOLOGIST FLOOR STEWARD/STEWARDESS LIZANDRO HOFF M.D. Performed By: #### E SR, CREAT, CBC, HEPATIC #### [address] Erythrocyte distribution wid th [Ratio] by Automated countOrdered By: Zhou Fischer on 05-02-2024 Erythrocyte distribution width (RBC) [Ratio] 13.6 % Normal 12.0-14.8 [facility] Comment on above: Performed By: #### E SR, CREAT, CBC, HEPATIC #### [address] Erythrocyte sedimentation ra te by Photometric methodOrdered By: Zhou Fischer on 05-02-2024 ESR Photometric method (Bld) [Velocity] 7 mm/hr 0-19 [facility] Erythrocytes [#/volume] in B lood by Automated countOrdered By: Zhou Fischer on 05-02-2024 RBC (Bld) [#/Vol] 4.56 10*6/uL Normal 3.90-5.60 [facility] Comment on above: Performed By: #### E SR, CREAT, CBC, HEPATIC #### [address] Hematocrit [Volume Fraction] of Blood by Automated countOrdered By: Zhou Fischer on 05-02-2024 Hematocrit (Bld) [Volume fraction] 41.9 % Normal 38.8-50.0 [facility] Comment on above: Performed By: #### E SR, CREAT, CBC, HEPATIC #### [address] Hemoglobin [Mass/volume] in BloodOrdered By: Zhou Fischer on 05-02-2024 Hemoglobin (Bld) [Mass/Vol] 14.6 g/dL Normal 13.0-17.0 [facility] Comment on above: Performed By: #### E SR, CREAT, CBC, HEPATIC #### [address] Hepatic Panelon 05-02-2024 Albumin [Mass/Vol] 4.4 g/dL Normal 3.5-5.7 [facility] Comment on above: Performed By: #### E SR, CREAT, CBC, HEPATIC #### [address] Bilirubin,Indirect 0.4 mg/dL Normal [facility] Comment on above: Performed By: #### E SR, CREAT, CBC, HEPATIC #### [address] Bilirubin.indirect [Mass/Vol] 0.10 mg/dL Normal 0.03-0.18 [facility] Comment on above: Performed By: #### E SR, CREAT, CBC, HEPATIC #### [address] Leukocytes [#/volume] correc basim for nucleated erythrocytes in Blood by Automated counOrdered By: Zhou Fischer on 05-02-2024 WBC corrected for nucl RBC Auto (Bld) [#/Vol] 5.3 10*3/uL 4.1-10.5 [facility] Leukocytes [#/volume] in Blo od by Automated countOrdered By: Zohu Fischer on 05-02-2024 WBC (Bld) [#/Vol] 5.3 10*3/uL Normal 4.1-10.5 [facility] Comment on above: Performed By: #### E SR, CREAT, CBC, HEPATIC #### [address] Lymphocytes [#/volume] in Bl ood by Automated countOrdered By: Zhou Fischer on 05-02-2024 Lymphocytes (Bld) [#/Vol] 1.6 10*3/uL Normal 1.00-4.8 [facility] Comment on above: Performed By: #### E SR, CREAT, CBC, HEPATIC #### [address] Lymphocytes/100 leukocytes i n Blood by Automated countOrdered By: Zhou Fischer on 05-02-2024 Lymphocytes/100 WBC (Bld) 29.9 % Normal . [facility] Comment on above: Performed By: #### E SR, CREAT, CBC, HEPATIC #### [place] [address] [place] MCH [Entitic mass] by Automa basim countOrdered By: Zhou Fischer on 05-02-2024 MCH (RBC) [Entitic mass] 31.9 pg Normal 27.5-35.2 [facility] Comment on above: Performed By: #### E SR, CREAT, CBC, HEPATIC #### [address] [place] [address] [place] MCHC Auto (RBC) [Mass/Vol]Or dered By: Zhou Fischer on 05-02-2024 MCHC (RBC) [Mass/Vol] 34.8 g/dL 32.5-35.6 [facility] MCV [Entitic volume] by Auto mated countOrdered By: Zhou Fischer on 05-02-2024 MCV (RBC) [Entitic vol] 91.9 fL Normal 83.5-101 [facility] Comment on above: Performed By: #### E SR, CREAT, CBC, HEPATIC #### [facility] [address] [place] [address] Neutrophils [#/volume] in Bl ood by Automated countOrdered By: Zhou Fischer on 05-02-2024 Neutrophils (Bld) [#/Vol] 3.0 10*3/uL Normal 1.8-7.7 [facility] Comment on above: Performed By: #### E SR, CREAT, CBC, HEPATIC #### [facility] [address] [place], [place] [address] No Panel InformationOrdered By: Zhou Fischer on 05-02-2024 Estimated GFR (CKD-EPI) > 60.0 mL/Min [facility] Creatinine Clearance (Chem N/A [facility] Nucleated erythrocytes [Pres ence] in Blood by Automated countOrdered By: Zhou Fischer on 05-02-2024 Nucleated RBC Auto Ql (Bld) 0.2 /100{WBC} 0-0.5 [facility] Platelet mean volume [Entiti c volume] in Blood by Automated countOrdered By: Zhou Fischer on 05-02-2024 Platelet mean volume (Bld) [Entitic vol] 8.4 fL Normal 6.6-10.1 [facility] Comment on above: Performed By: #### E SR, CREAT, CBC, HEPATIC #### [facility] [address] [place] [address] Platelets [#/volume] in Bloo d by Automated countOrdered By: Zhou Fischer on 05-02-2024 Platelets (Bld) [#/Vol] 313 10*3/uL Normal 150-450 [facility] Comment on above: Performed By: #### E SR, CREAT, CBC, HEPATIC #### [facility] [address] Protein [Mass/volume] in Ser um or PlasmaOrdered By: Zhou Fischer on 05-02-2024 Protein [Mass/Vol] 6.7 g/dL Normal 6.4-8.9 [facility] Comment on above: Performed By: #### E SR, CREAT, CBC, HEPATIC #### [facility] [address] Serum globulin measurement b y calculation (mass/volume)Ordered By: Zhou Fischer on 05-02-2024 Globulin (S) [Mass/Vol] 2.3 g/dL Normal [facility] Comment on above: Performed By: #### E SR, CREAT, CBC, HEPATIC #### [facility] [address] [place] [address] Serum or plasma albumin/glob ulin mass ratioOrdered By: Zhou Fischer on 05-02-2024 Albumin/Globulin [Mass ratio] 1.9 {ratio} Normal [facility] Comment on above: Performed By: #### E SR, CREAT, CBC, HEPATIC #### [address] Serum or plasma non-glucuron idated bilirubin measurement (mass/volume)Ordered By: Zhou Fischer on 05-02-2024 Bilirubin.indirect [Mass/Vol] 0.4 mg/dL [facility] Alanine aminotransferase [En zymatic activity/volume] in Serum or PlasmaOrdered By: Zhou Fischer on 03-16-2024 ALT [Catalytic activity/Vol] 21 U/L 7-52 [facility] Albumin [Mass/volume] in Ser um or Plasma by Bromocresol green (BCG) dye binding methoOrdered By: Zhou Fischer on 03-16-2024 Albumin BCG dye [Mass/Vol] 4.3 g/dL 3.5-5.7 [facility] Alkaline phosphatase [Enzyma tic activity/volume] in Serum or PlasmaOrdered By: Zhou Fischer on 03-16-2024 ALP [Catalytic activity/Vol] 70 U/L 34-104 [facility] Aspartate aminotransferase [ Enzymatic activity/volume] in Serum or PlasmaOrdered By: Zhou Fischer on 03-16-2024 AST [Catalytic activity/Vol] 20 U/L 13-39 [facility] Basophils Auto (Bld) [#/Vol] Ordered By: Zhou Fischer on 03-16-2024 Basophils (Bld) [#/Vol] 0.0 10*3/uL 0.0-0.2 [facility] Basophils/100 WBC Auto (Bld) Ordered By: Zhou Fischer on 03-16-2024 Basophils/100 WBC (Bld) 0.9 % . [facility] Bilirubin.direct [Mass/volum e] in Serum or PlasmaOrdered By: Zhou Fischer on 03-16-2024 Bilirubin.direct [Mass/Vol] 0.10 mg/dL 0.03-0.18 [facility] Bilirubin.total [Mass/volume ] in Serum or PlasmaOrdered By: Zhou Fischer on 03-16-2024 Bilirubin [Mass/Vol] 0.7 mg/dL 0.3-1.0 [facility] Creatinine [Mass/volume] in Serum or PlasmaOrdered By: Zhou Fischer on 03-16-2024 Creatinine [Mass/Vol] 0.85 mg/dL 0.70-1.30 [facility] Eosinophils Auto (Bld) [#/Vo l]Ordered By: Zhou Fischer on 03-16-2024 Eosinophils (Bld) [#/Vol] 0.1 10*3/uL 0.0-0.45 [facility] Eosinophils/100 WBC Auto (Bl d)Ordered By: Zhou Fischer on 03-16-2024 Eosinophils/100 WBC (Bld) 2.8 % . [facility] Erythrocyte distribution wid th Auto (RBC) [Ratio]Ordered By: Zhou Fischer on 03-16-2024 Erythrocyte distribution width (RBC) [Ratio] 13.9 % 12.0-14.8 [facility] Erythrocyte sedimentation ra te by Photometric methodOrdered By: Zhou Fischer on 03-16-2024 ESR Photometric method (Bld) [Velocity] 4 mm/hr 0-19 [facility] Globulin Calc (S) [Mass/Vol] Ordered By: Zhou Fischer on 03-16-2024 Globulin (S) [Mass/Vol] 2.1 g/dL [facility] Hematocrit Auto (Bld) [Volum e fraction]Ordered By: Zhou Fischer on 03-16-2024 Hematocrit (Bld) [Volume fraction] 42.1 % 38.8-50.0 [facility] Hemoglobin [Mass/volume] in BloodOrdered By: Zhou Fischer on 03-16-2024 Hemoglobin (Bld) [Mass/Vol] 14.3 g/dL 13.0-17.0 [facility] Leukocytes [#/volume] correc basim for nucleated erythrocytes in Blood by Automated counOrdered By: Zhou Fischer on 03-16-2024 WBC corrected for nucl RBC Auto (Bld) [#/Vol] 4.6 10*3/uL 4.1-10.5 [facility] Lymphocytes Auto (Bld) [#/Vo l]Ordered By: Zohu Fischer on 03-16-2024 Lymphocytes (Bld) [#/Vol] 1.7 10*3/uL 1.00-4.8 [facility] Lymphocytes/100 WBC Auto (Bl d)Ordered By: Zhou Fischer on 03-16-2024 Lymphocytes/100 WBC (Bld) 36.9 % . [facility] MCH Auto (RBC) [Entitic mass ]Ordered By: Zhou Fischer on 03-16-2024 MCH (RBC) [Entitic mass] 31.8 pg 27.5-35.2 [facility] MCHC Auto (RBC) [Mass/Vol]Or dered By: Zhou Fischer on 03-16-2024 MCHC (RBC) [Mass/Vol] 34.0 g/dL 32.5-35.6 [facility] MCV Auto (RBC) [Entitic vol] Ordered By: Zhou Fischer on 03-16-2024 MCV (RBC) [Entitic vol] 93.5 fL 83.5-101 [facility] Monocytes Auto (Bld) [#/Vol] Ordered By: Zhou Fischer on 03-16-2024 Monocytes (Bld) [#/Vol] 0.4 10*3/uL 0.0-0.8 [facility] Monocytes/100 WBC Auto (Bld) Ordered By: Zhou Fischer on 03-16-2024 Monocytes/100 WBC (Bld) 9.1 % . [facility] Neutrophils Auto (Bld) [#/Vo l]Ordered By: Zhou Fischer on 03-16-2024 Neutrophils (Bld) [#/Vol] 2.3 10*3/uL 1.8-7.7 [facility] Neutrophils/100 WBC Auto (Bl d)Ordered By: Zhou Fischer on 03-16-2024 Neutrophils/100 WBC (Bld) 50.3 % . [facility] No Panel InformationOrdered By: Zhou Fischer on 03-16-2024 Estimated GFR (CKD-EPI) > 60.0 mL/Min [facility] Creatinine Clearance (Chem N/A [facility] Nucleated erythrocytes [Pres ence] in Blood by Automated countOrdered By: Zhou Fischer on 03-16-2024 Nucleated RBC Auto Ql (Bld) 0.1 /100{WBC} 0-0.5 [facility] Platelet mean volume Auto (B ld) [Entitic vol]Ordered By: Zhou Fischer on 03-16-2024 Platelet mean volume (Bld) [Entitic vol] 8.6 fL 6.6-10.1 [facility] Platelets Auto (Bld) [#/Vol] Ordered By: Zhou Fischer on 03-16-2024 Platelets (Bld) [#/Vol] 290 10*3/uL 150-450 [facility] Protein [Mass/volume] in Ser um or PlasmaOrdered By: Zhou Fischer on 03-16-2024 Protein [Mass/Vol] 6.4 g/dL 6.4-8.9 [facility] RBC Auto (Bld) [#/Vol]Ordere d By: Zhou Fischer on 03-16-2024 RBC (Bld) [#/Vol] 4.50 10*6/uL 3.90-5.60 [facility] Serum or plasma albumin/glob ulin mass ratioOrdered By: Zhou Fischer on 03-16-2024 Albumin/Globulin [Mass ratio] 2.0 {ratio} [facility] Serum or plasma non-glucuron idated bilirubin measurement (mass/volume)Ordered By: Zhou Fischer on 03-16-2024 Bilirubin.indirect [Mass/Vol] 0.6 mg/dL [facility] WBC Auto (Bld) [#/Vol]Ordere d By: Zhou Fischer on 03-16-2024 WBC (Bld) [#/Vol] 4.6 10*3/uL 4.1-10.5 [facility] Alanine aminotransferase [En zymatic activity/volume] in Serum or PlasmaOrdered By: Zhou Fischer on 12-28-2023 ALT [Catalytic activity/Vol] 24 U/L 7-52 [facility] Albumin [Mass/volume] in Ser um or Plasma by Bromocresol green (BCG) dye binding methoOrdered By: Zhou Fischer on 12-28-2023 Albumin BCG dye [Mass/Vol] 4.4 g/dL 3.5-5.7 [facility] Alkaline phosphatase [Enzyma tic activity/volume] in Serum or PlasmaOrdered By: Zhou Fischer on 12-28-2023 ALP [Catalytic activity/Vol] 69 U/L 34-104 [facility] Aspartate aminotransferase [ Enzymatic activity/volume] in Serum or PlasmaOrdered By: Zhou Fischer on 12-28-2023 AST [Catalytic activity/Vol] 24 U/L 13-39 [facility] Basophils Auto (Bld) [#/Vol] Ordered By: Zhou Fischer on 12-28-2023 Basophils (Bld) [#/Vol] 0.0 10*3/uL 0.0-0.2 [facility] Basophils/100 WBC Auto (Bld) Ordered By: Zhou Fischer on 12-28-2023 Basophils/100 WBC (Bld) 0.9 % . [facility] Bilirubin.direct [Mass/volum e] in Serum or PlasmaOrdered By: Zhou Fischer on 12-28-2023 Bilirubin.direct [Mass/Vol] 0.10 mg/dL 0.03-0.18 [facility] Bilirubin.total [Mass/volume ] in Serum or PlasmaOrdered By: Zhou Fischer on 12-28-2023 Bilirubin [Mass/Vol] 0.7 mg/dL 0.3-1.0 [facility] Creatinine [Mass/volume] in Serum or PlasmaOrdered By: Zhou Fischer on 12-28-2023 Creatinine [Mass/Vol] 0.84 mg/dL 0.70-1.30 [facility] Eosinophils Auto (Bld) [#/Vo l]Ordered By: Zhou Fischer on 12-28-2023 Eosinophils (Bld) [#/Vol] 0.2 10*3/uL 0.0-0.45 [facility] Eosinophils/100 WBC Auto (Bl d)Ordered By: Zhou Fischer on 12-28-2023 Eosinophils/100 WBC (Bld) 3.5 % . [facility] Erythrocyte distribution wid th Auto (RBC) [Ratio]Ordered By: Zhou Fischer on 12-28-2023 Erythrocyte distribution width (RBC) [Ratio] 13.8 % 12.0-14.8 [facility] Erythrocyte sedimentation ra te by Photometric methodOrdered By: Zhou Fischer on 12-28-2023 ESR Photometric method (Bld) [Velocity] 5 mm/hr 0-19 [facility] Globulin Calc (S) [Mass/Vol] Ordered By: Zhou Fischer on 12-28-2023 Globulin (S) [Mass/Vol] 2.4 g/dL [facility] Hematocrit Auto (Bld) [Volum e fraction]Ordered By: Zhou Fischer on 12-28-2023 Hematocrit (Bld) [Volume fraction] 41.4 % 38.8-50.0 [facility] Hemoglobin [Mass/volume] in BloodOrdered By: Zhou Fischer on 12-28-2023 Hemoglobin (Bld) [Mass/Vol] 14.4 g/dL 13.0-17.0 [facility] Leukocytes [#/volume] correc basim for nucleated erythrocytes in Blood by Automated counOrdered By: Zhou Fischer on 12-28-2023 WBC corrected for nucl RBC Auto (Bld) [#/Vol] 4.4 10*3/uL 4.1-10.5 [facility] Lymphocytes Auto (Bld) [#/Vo l]Ordered By: Zhou Fischer on 12-28-2023 Lymphocytes (Bld) [#/Vol] 1.6 10*3/uL 1.00-4.8 [facility] Lymphocytes/100 WBC Auto (Bl d)Ordered By: Zhou Fischer on 12-28-2023 Lymphocytes/100 WBC (Bld) 35.3 % . [facility] MCH Auto (RBC) [Entitic mass ]Ordered By: Zhou Fischer on 12-28-2023 MCH (RBC) [Entitic mass] 32.1 pg 27.5-35.2 [facility] MCHC Auto (RBC) [Mass/Vol]Or dered By: Zhou Fischer on 12-28-2023 MCHC (RBC) [Mass/Vol] 34.7 g/dL 32.5-35.6 [facility] MCV Auto (RBC) [Entitic vol] Ordered By: Zhou Fischer on 12-28-2023 MCV (RBC) [Entitic vol] 92.6 fL 83.5-101 [facility] Monocytes Auto (Bld) [#/Vol] Ordered By: Zhou Fischer on 12-28-2023 Monocytes (Bld) [#/Vol] 0.4 10*3/uL 0.0-0.8 [facility] Monocytes/100 WBC Auto (Bld) Ordered By: Zhou Fischer on 12-28-2023 Monocytes/100 WBC (Bld) 9.6 % . [facility] Neutrophils Auto (Bld) [#/Vo l]Ordered By: Zhou Fischer on 12-28-2023 Neutrophils (Bld) [#/Vol] 2.2 10*3/uL 1.8-7.7 [facility] Neutrophils/100 WBC Auto (Bl d)Ordered By: Zhou Fischer on 12-28-2023 Neutrophils/100 WBC (Bld) 50.7 % . [facility] No Panel InformationOrdered By: Zhou Fischer on 12-28-2023 Estimated GFR (CKD-EPI) > 60.0 mL/Min [facility] Creatinine Clearance (Chem N/A [facility] Nucleated erythrocytes [Pres ence] in Blood by Automated countOrdered By: Zhou Fischer on 12-28-2023 Nucleated RBC Auto Ql (Bld) 0.1 /100{WBC} 0-0.5 [facility] Platelet mean volume Auto (B ld) [Entitic vol]Ordered By: Zhou Fischer on 12-28-2023 Platelet mean volume (Bld) [Entitic vol] 8.2 fL 6.6-10.1 [facility] Platelets Auto (Bld) [#/Vol] Ordered By: Zhou Fischer on 12-28-2023 Platelets (Bld) [#/Vol] 309 10*3/uL 150-450 [facility] Protein [Mass/volume] in Ser um or PlasmaOrdered By: Zhou Fischer on 12-28-2023 Protein [Mass/Vol] 6.8 g/dL 6.4-8.9 [facility] RBC Auto (Bld) [#/Vol]Ordere d By: Zhou Fischer on 12-28-2023 RBC (Bld) [#/Vol] 4.47 10*6/uL 3.90-5.60 [facility] Serum or plasma albumin/glob ulin mass ratioOrdered By: Zhou Fischer on 12-28-2023 Albumin/Globulin [Mass ratio] 1.8 {ratio} [facility] Serum or plasma non-glucuron idated bilirubin measurement (mass/volume)Ordered By: Zhou Fischer on 12-28-2023 Bilirubin.indirect [Mass/Vol] 0.6 mg/dL [facility] WBC Auto (Bld) [#/Vol]Ordere d By: Zhou Fischer on 12-28-2023 WBC (Bld) [#/Vol] 4.4 10*3/uL 4.1-10.5 [facility] UA DIP, URINE (POC)on 2023 BILIRUBIN UA (POCT) Negative Negative [facility] CLARITY UA (POCT) Clear [facility] COLOR UA (POCT) Yellow [facility] GLUCOSE UA (POCT) Negative Negative mg/dL [facility] Hemoglobin Ql (U) Negative Negative [facility] KETONE UA (POCT) Negative Negative mg/dL [facility] LEUKOCYTES UA (POCT) Negative Negative [facility] NITRITE UA (POCT) Negative Negative [facility] PH UA (POCT) 7.0 4.5 - 8.0 [facility] Protein Ql (U) Negative Negative mg/dL [facility] SPECIFIC GRAVITY UA (POCT) 1.015 1.005 - 1.030 [facility] UROBILINOGEN UA (POCT) 0.2 [place] E.U./dL [facility] Location:[facility], [address] [place] [address], [address] [place] [address] POINT OF CARE [facility] Alanine aminotransferase [En zymatic activity/volume] in Serum or PlasmaOrdered By: Zhou Fischer on 10-29-2023 ALT [Catalytic activity/Vol] 20 U/L 7-52 [facility] Albumin [Mass/volume] in Ser um or Plasma by Bromocresol green (BCG) dye binding methoOrdered By: Zhou Fischer on 10-29-2023 Albumin BCG dye [Mass/Vol] 4.5 g/dL 3.5-5.7 [facility] Alkaline phosphatase [Enzyma tic activity/volume] in Serum or PlasmaOrdered By: Zhou Fischer on 10-29-2023 ALP [Catalytic activity/Vol] 75 U/L 34-104 [facility] Aspartate aminotransferase [ Enzymatic activity/volume] in Serum or PlasmaOrdered By: Zhou Fischer on 10-29-2023 AST [Catalytic activity/Vol] 25 U/L 13-39 [facility] Basophils Auto (Bld) [#/Vol] Ordered By: Zhou Fischer on 10-29-2023 Basophils (Bld) [#/Vol] 0.0 10*3/uL 0.0-0.2 [facility] Basophils/100 WBC Auto (Bld) Ordered By: Zhou Fischer on 10-29-2023 Basophils/100 WBC (Bld) 1.0 % . [facility] Bilirubin.direct [Mass/volum e] in Serum or PlasmaOrdered By: Zhou Fischer on 10-29-2023 Bilirubin.direct [Mass/Vol] 0.10 mg/dL 0.03-0.18 [facility] Bilirubin.total [Mass/volume ] in Serum or PlasmaOrdered By: Zhou Fischer on 10-29-2023 Bilirubin [Mass/Vol] 0.7 mg/dL 0.3-1.0 [facility] Creatinine [Mass/volume] in Serum or PlasmaOrdered By: Zhou Fischer on 10-29-2023 Creatinine [Mass/Vol] 0.83 mg/dL 0.70-1.30 [facility] Eosinophils Auto (Bld) [#/Vo l]Ordered By: Zhou Fischer on 10-29-2023 Eosinophils (Bld) [#/Vol] 0.1 10*3/uL 0.0-0.45 [facility] Eosinophils/100 WBC Auto (Bl d)Ordered By: Zhou Fischer on 10-29-2023 Eosinophils/100 WBC (Bld) 2.4 % . [facility] Erythrocyte distribution wid th Auto (RBC) [Ratio]Ordered By: Zhou Fischer on 10-29-2023 Erythrocyte distribution width (RBC) [Ratio] 14.2 % 12.0-14.8 [facility] Erythrocyte sedimentation ra te by Photometric methodOrdered By: Zhou Fischer on 10-29-2023 ESR Photometric method (Bld) [Velocity] 3 mm/hr 0-19 [facility] Globulin Calc (S) [Mass/Vol] Ordered By: Zhou Fischer on 10-29-2023 Globulin (S) [Mass/Vol] 2.1 g/dL [facility] Hematocrit Auto (Bld) [Volum e fraction]Ordered By: Zhou Fischer on 10-29-2023 Hematocrit (Bld) [Volume fraction] 40.8 % 38.8-50.0 [facility] Hemoglobin [Mass/volume] in BloodOrdered By: Zhou Fischer on 10-29-2023 Hemoglobin (Bld) [Mass/Vol] 14.1 g/dL 13.0-17.0 [facility] Leukocytes [#/volume] correc basim for nucleated erythrocytes in Blood by Automated counOrdered By: Zhou Fischer on 10-29-2023 WBC corrected for nucl RBC Auto (Bld) [#/Vol] 4.9 10*3/uL 4.1-10.5 [facility] Lymphocytes Auto (Bld) [#/Vo l]Ordered By: Zhou Fiscehr on 10-29-2023 Lymphocytes (Bld) [#/Vol] 1.6 10*3/uL 1.00-4.8 [facility] Lymphocytes/100 WBC Auto (Bl d)Ordered By: Zhou Fischer on 10-29-2023 Lymphocytes/100 WBC (Bld) 33.5 % . [facility] MCH Auto (RBC) [Entitic mass ]Ordered By: Zhou Fischer on 10-29-2023 MCH (RBC) [Entitic mass] 31.8 pg 27.5-35.2 [facility] MCHC Auto (RBC) [Mass/Vol]Or dered By: Zhou Fischer on 10-29-2023 MCHC (RBC) [Mass/Vol] 34.5 g/dL 32.5-35.6 [facility] MCV Auto (RBC) [Entitic vol] Ordered By: Zhou Fischer on 10-29-2023 MCV (RBC) [Entitic vol] 92.1 fL 83.5-101 [facility] Monocytes Auto (Bld) [#/Vol] Ordered By: Zhou Fischer on 10-29-2023 Monocytes (Bld) [#/Vol] 0.6 10*3/uL 0.0-0.8 [facility] Monocytes/100 WBC Auto (Bld) Ordered By: Zhou Fischer on 10-29-2023 Monocytes/100 WBC (Bld) 11.4 % . [facility] Neutrophils Auto (Bld) [#/Vo l]Ordered By: Zhou Fischer on 10-29-2023 Neutrophils (Bld) [#/Vol] 2.5 10*3/uL 1.8-7.7 [facility] Neutrophils/100 WBC Auto (Bl d)Ordered By: Zhou Fischer on 10-29-2023 Neutrophils/100 WBC (Bld) 51.7 % . [facility] No Panel InformationOrdered By: Zhou Fischer on 10-29-2023 Estimated GFR (CKD-EPI) > 60.0 mL/Min [facility] Creatinine Clearance (Chem N/A [facility] Nucleated erythrocytes [Pres ence] in Blood by Automated countOrdered By: Zhou Fischer on 10-29-2023 Nucleated RBC Auto Ql (Bld) 0.2 /100{WBC} 0-0.5 [facility] Platelet mean volume Auto (B ld) [Entitic vol]Ordered By: Zhou Fischer on 10-29-2023 Platelet mean volume (Bld) [Entitic vol] 8.3 fL 6.6-10.1 [facility] Platelets Auto (Bld) [#/Vol] Ordered By: Zhou Fischer on 10-29-2023 Platelets (Bld) [#/Vol] 324 10*3/uL 150-450 [facility] Protein [Mass/volume] in Ser um or PlasmaOrdered By: Zhou Fischer on 10-29-2023 Protein [Mass/Vol] 6.6 g/dL 6.4-8.9 [facility] RBC Auto (Bld) [#/Vol]Ordere d By: Zhou Fischer on 10-29-2023 RBC (Bld) [#/Vol] 4.43 10*6/uL 3.90-5.60 [facility] Serum or plasma albumin/glob ulin mass ratioOrdered By: Zhou Fischer on 10-29-2023 Albumin/Globulin [Mass ratio] 2.1 {ratio} [facility] Serum or plasma non-glucuron idated bilirubin measurement (mass/volume)Ordered By: Zhou Fischer on 10-29-2023 Bilirubin.indirect [Mass/Vol] 0.6 mg/dL [facility] WBC Auto (Bld) [#/Vol]Ordere d By: Zhou Fischer on 10-29-2023 WBC (Bld) [#/Vol] 4.9 10*3/uL 4.1-10.5 [facility] ECG 12 Leadon 10-20-2023 Atrial Rate [facility] [place] [facility] P-R Interval [facility] Q-T Interval [facility] Q-T Interval (corrected) [facility] QRS Duration [facility] QTC Calculation ([facility]) [facility] [place] [facility] [place] [facility] Ventricular Rate [facility] Alanine aminotransferase [En zymatic activity/volume] in Serum or PlasmaOrdered By: Zhou Fischer on 07-21-2023 ALT [Catalytic activity/Vol] 26 U/L 7-52 [facility] Albumin [Mass/volume] in Ser um or Plasma by Bromocresol green (BCG) dye binding methoOrdered By: Zhou Fischer on 07-21-2023 Albumin BCG dye [Mass/Vol] 4.4 g/dL 3.5-5.7 [facility] Alkaline phosphatase [Enzyma tic activity/volume] in Serum or PlasmaOrdered By: Zhou Fischer on 07-21-2023 ALP [Catalytic activity/Vol] 69 U/L 34-104 [facility] Aspartate aminotransferase [ Enzymatic activity/volume] in Serum or PlasmaOrdered By: Zhou Fischer on 07-21-2023 AST [Catalytic activity/Vol] 23 U/L 13-39 [facility] Basophils Auto (Bld) [#/Vol] Ordered By: Zhou Fischer on 07-21-2023 Basophils (Bld) [#/Vol] 0.0 10*3/uL 0.0-0.2 [facility] Basophils/100 WBC Auto (Bld) Ordered By: Zhou Fischer on 07-21-2023 Basophils/100 WBC (Bld) 0.7 % . [facility] Bilirubin.direct [Mass/volum e] in Serum or PlasmaOrdered By: Zhou Fischer on 07-21-2023 Bilirubin.direct [Mass/Vol] 0.10 mg/dL 0.03-0.18 [facility] Bilirubin.total [Mass/volume ] in Serum or PlasmaOrdered By: Zhou Fischer on 07-21-2023 Bilirubin [Mass/Vol] 0.5 mg/dL 0.3-1.0 [facility] Creatinine [Mass/volume] in Serum or PlasmaOrdered By: Zhou Fischer on 07-21-2023 Creatinine [Mass/Vol] 0.94 mg/dL 0.70-1.30 [facility] Eosinophils Auto (Bld) [#/Vo l]Ordered By: Zhou Fischer on 07-21-2023 Eosinophils (Bld) [#/Vol] 0.1 10*3/uL 0.0-0.45 [facility] Eosinophils/100 WBC Auto (Bl d)Ordered By: Zhou Fischer on 07-21-2023 Eosinophils/100 WBC (Bld) 1.9 % . [facility] Erythrocyte distribution wid th Auto (RBC) [Ratio]Ordered By: Zhou Fischer on 07-21-2023 Erythrocyte distribution width (RBC) [Ratio] 13.7 % 12.0-14.8 [facility] Erythrocyte sedimentation ra te by Photometric methodOrdered By: Zhou Fischer on 07-21-2023 ESR Photometric method (Bld) [Velocity] 2 mm/hr 0-19 [facility] Globulin Calc (S) [Mass/Vol] Ordered By: Zhou Fischer on 07-21-2023 Globulin (S) [Mass/Vol] 2.3 g/dL [facility] Hematocrit Auto (Bld) [Volum e fraction]Ordered By: Zhou Fischer on 07-21-2023 Hematocrit (Bld) [Volume fraction] 40.1 % 38.8-50.0 [facility] Hemoglobin [Mass/volume] in BloodOrdered By: Zhou Fischer on 07-21-2023 Hemoglobin (Bld) [Mass/Vol] 14.0 g/dL 13.0-17.0 [facility] Leukocytes [#/volume] correc basim for nucleated erythrocytes in Blood by Automated counOrdered By: Zhou Fischer on 07-21-2023 WBC corrected for nucl RBC Auto (Bld) [#/Vol] 5.5 10*3/uL 4.1-10.5 [facility] Lymphocytes Auto (Bld) [#/Vo l]Ordered By: Zhou Fischer on 07-21-2023 Lymphocytes (Bld) [#/Vol] 1.5 10*3/uL 1.00-4.8 [facility] Lymphocytes/100 WBC Auto (Bl d)Ordered By: Zhou Fischer on 07-21-2023 Lymphocytes/100 WBC (Bld) 26.4 % . [facility] MCH Auto (RBC) [Entitic mass ]Ordered By: Zhou Fischer on 07-21-2023 MCH (RBC) [Entitic mass] 31.8 pg 27.5-35.2 [facility] MCHC Auto (RBC) [Mass/Vol]Or dered By: Zhou Fischer on 07-21-2023 MCHC (RBC) [Mass/Vol] 34.8 g/dL 32.5-35.6 [facility] MCV Auto (RBC) [Entitic vol] Ordered By: Zhou Fischer on 07-21-2023 MCV (RBC) [Entitic vol] 91.4 fL 83.5-101 [facility] Monocytes Auto (Bld) [#/Vol] Ordered By: Zhou Fischer on 07-21-2023 Monocytes (Bld) [#/Vol] 0.4 10*3/uL 0.0-0.8 [facility] Monocytes/100 WBC Auto (Bld) Ordered By: Zhou Fischer on 07-21-2023 Monocytes/100 WBC (Bld) 7.5 % . [facility] Neutrophils Auto (Bld) [#/Vo l]Ordered By: Zhou Fischer on 07-21-2023 Neutrophils (Bld) [#/Vol] 3.5 10*3/uL 1.8-7.7 [facility] Neutrophils/100 WBC Auto (Bl d)Ordered By: Zhou Fischer on 07-21-2023 Neutrophils/100 WBC (Bld) 63.5 % . [facility] No Panel InformationOrdered By: Zhou Fischer on 07-21-2023 Estimated GFR (CKD-EPI) > 60.0 mL/Min [facility] Creatinine Clearance (Chem N/A [facility] Nucleated erythrocytes [Pres ence] in Blood by Automated countOrdered By: Zhou Fischer on 07-21-2023 Nucleated RBC Auto Ql (Bld) 0.2 /100{WBC} 0-0.5 [facility] Platelet mean volume Auto (B ld) [Entitic vol]Ordered By: Zhou Fischer on 07-21-2023 Platelet mean volume (Bld) [Entitic vol] 8.3 fL 6.6-10.1 [facility] Platelets Auto (Bld) [#/Vol] Ordered By: Zhou Fischer on 07-21-2023 Platelets (Bld) [#/Vol] 312 10*3/uL 150-450 [facility] Protein [Mass/volume] in Ser um or PlasmaOrdered By: Zhou Fischer on 07-21-2023 Protein [Mass/Vol] 6.7 g/dL 6.4-8.9 [facility] RBC Auto (Bld) [#/Vol]Ordere d By: Zhou Fischer on 07-21-2023 RBC (Bld) [#/Vol] 4.39 10*6/uL 3.90-5.60 [facility] Serum or plasma albumin/glob ulin mass ratioOrdered By: Zhou Fischer on 07-21-2023 Albumin/Globulin [Mass ratio] 1.9 {ratio} [facility] Serum or plasma non-glucuron idated bilirubin measurement (mass/volume)Ordered By: Zhou Fischer on 07-21-2023 Bilirubin.indirect [Mass/Vol] 0.4 mg/dL [facility] WBC Auto (Bld) [#/Vol]Ordere d By: Zhou Fischer on 07-21-2023 WBC (Bld) [#/Vol] 5.5 10*3/uL 4.1-10.5 [facility] CREATININE, BLOOD (POC)on Creatinine [Mass/Vol] 0.80 mg/dL 0.7 - 1.4 mg/dL [facility] eGFR (POCT) [facility] CT UROGRAM WO/W IVCONon 12-0 [facility] Alanine aminotransferase [En zymatic activity/volume] in Serum or PlasmaOrdered By: Zhou Fischer on 05-25-2023 ALT [Catalytic activity/Vol] 36 U/L 7-52 [facility] Albumin [Mass/volume] in Ser um or Plasma by Bromocresol green (BCG) dye binding methoOrdered By: Zhou Fischer on 05-25-2023 Albumin BCG dye [Mass/Vol] 4.5 g/dL 3.5-5.7 [facility] Alkaline phosphatase [Enzyma tic activity/volume] in Serum or PlasmaOrdered By: Zhou Fischer on 05-25-2023 ALP [Catalytic activity/Vol] 66 U/L 34-104 [facility] Aspartate aminotransferase [ Enzymatic activity/volume] in Serum or PlasmaOrdered By: Zhou Fischer on 05-25-2023 AST [Catalytic activity/Vol] 25 U/L 13-39 [facility] Basophils Auto (Bld) [#/Vol] Ordered By: Zhou Fischer on 05-25-2023 Basophils (Bld) [#/Vol] 0.0 10*3/uL 0.0-0.2 [facility] Basophils/100 WBC Auto (Bld) Ordered By: Zhou Fischer on 05-25-2023 Basophils/100 WBC (Bld) 0.7 % . [facility] Bilirubin.direct [Mass/volum e] in Serum or PlasmaOrdered By: Zhou Fischer on 05-25-2023 Bilirubin.direct [Mass/Vol] 0.10 mg/dL 0.03-0.18 [facility] Bilirubin.total [Mass/volume ] in Serum or PlasmaOrdered By: Zhou Fischer on 05-25-2023 Bilirubin [Mass/Vol] 0.5 mg/dL 0.3-1.0 [facility] Creatinine [Mass/volume] in Serum or PlasmaOrdered By: Zhou Fischer on 05-25-2023 Creatinine [Mass/Vol] 0.91 mg/dL 0.70-1.30 [facility] Eosinophils Auto (Bld) [#/Vo l]Ordered By: Zhou Fischer on 05-25-2023 Eosinophils (Bld) [#/Vol] 0.1 10*3/uL 0.0-0.45 [facility] Eosinophils/100 WBC Auto (Bl d)Ordered By: Zhou Fischer on 05-25-2023 Eosinophils/100 WBC (Bld) 2.4 % . [facility] Erythrocyte distribution wid th Auto (RBC) [Ratio]Ordered By: Zhou Fischer on 05-25-2023 Erythrocyte distribution width (RBC) [Ratio] 13.8 % 12.0-14.8 [facility] Erythrocyte sedimentation ra te by Photometric methodOrdered By: Zhou Fischer on 05-25-2023 ESR Photometric method (Bld) [Velocity] 2 mm/hr 0-19 [facility] Globulin Calc (S) [Mass/Vol] Ordered By: Zhou Fischer on 05-25-2023 Globulin (S) [Mass/Vol] 2.2 g/dL [facility] Hematocrit Auto (Bld) [Volum e fraction]Ordered By: Zhou Fischer on 05-25-2023 Hematocrit (Bld) [Volume fraction] 41.8 % 38.8-50.0 [facility] Hemoglobin [Mass/volume] in BloodOrdered By: Zhou Fischer on 05-25-2023 Hemoglobin (Bld) [Mass/Vol] 14.3 g/dL 13.0-17.0 [facility] Leukocytes [#/volume] correc basim for nucleated erythrocytes in Blood by Automated counOrdered By: Zhou Fischer on 05-25-2023 WBC corrected for nucl RBC Auto (Bld) [#/Vol] 5.2 10*3/uL 4.1-10.5 [facility] Lymphocytes Auto (Bld) [#/Vo l]Ordered By: Zhou Fischer on 05-25-2023 Lymphocytes (Bld) [#/Vol] 1.5 10*3/uL 1.00-4.8 [facility] Lymphocytes/100 WBC Auto (Bl d)Ordered By: Zhou Fischer on 05-25-2023 Lymphocytes/100 WBC (Bld) 27.8 % . [facility] MCH Auto (RBC) [Entitic mass ]Ordered By: Zhou Fischer on 05-25-2023 MCH (RBC) [Entitic mass] 31.5 pg 27.5-35.2 [facility] MCHC Auto (RBC) [Mass/Vol]Or dered By: Zhou Fischer on 05-25-2023 MCHC (RBC) [Mass/Vol] 34.1 g/dL 32.5-35.6 [facility] MCV Auto (RBC) [Entitic vol] Ordered By: Zhou Fischer on 05-25-2023 MCV (RBC) [Entitic vol] 92.4 fL 83.5-101 [facility] Monocytes Auto (Bld) [#/Vol] Ordered By: Zhou Fischer on 05-25-2023 Monocytes (Bld) [#/Vol] 0.5 10*3/uL 0.0-0.8 [facility] Monocytes/100 WBC Auto (Bld) Ordered By: Zhou Fischer on 05-25-2023 Monocytes/100 WBC (Bld) 9.6 % . [facility] Neutrophils Auto (Bld) [#/Vo l]Ordered By: Zhou Fischer on 05-25-2023 Neutrophils (Bld) [#/Vol] 3.1 10*3/uL 1.8-7.7 [facility] Neutrophils/100 WBC Auto (Bl d)Ordered By: Zhou Ficsher on 05-25-2023 Neutrophils/100 WBC (Bld) 59.5 % . [facility] No Panel InformationOrdered By: Zhou Fischer on 05-25-2023 Estimated GFR (CKD-EPI) > 60.0 mL/Min [facility] Creatinine Clearance (Chem N/A [facility] Nucleated erythrocytes [Pres ence] in Blood by Automated countOrdered By: Zhou Fischer on 05-25-2023 Nucleated RBC Auto Ql (Bld) 0.2 /100{WBC} 0-0.5 [facility] Platelet mean volume Auto (B ld) [Entitic vol]Ordered By: Zhou Fischer on 05-25-2023 Platelet mean volume (Bld) [Entitic vol] 8.5 fL 6.6-10.1 [facility] Platelets Auto (Bld) [#/Vol] Ordered By: Zhou Fischer on 05-25-2023 Platelets (Bld) [#/Vol] 309 10*3/uL 150-450 [facility] Protein [Mass/volume] in Ser um or PlasmaOrdered By: Zhou Fischer on 05-25-2023 Protein [Mass/Vol] 6.7 g/dL 6.4-8.9 [facility] RBC Auto (Bld) [#/Vol]Ordere d By: Zhou Fischer on 05-25-2023 RBC (Bld) [#/Vol] 4.52 10*6/uL 3.90-5.60 [facility] Serum or plasma albumin/glob ulin mass ratioOrdered By: Zhou Fischer on 05-25-2023 Albumin/Globulin [Mass ratio] 2.0 {ratio} [facility] Serum or plasma non-glucuron idated bilirubin measurement (mass/volume)Ordered By: Zhou Fischer on 05-25-2023 Bilirubin.indirect [Mass/Vol] 0.4 mg/dL [facility] WBC Auto (Bld) [#/Vol]Ordere d By: Zhou Fischer on 05-25-2023 WBC (Bld) [#/Vol] 5.2 10*3/uL 4.1-10.5 [facility] Alanine aminotransferase [En zymatic activity/volume] in Serum or PlasmaOrdered By: Zhou Fischer on 03-17-2023 ALT [Catalytic activity/Vol] 26 U/L 7-52 [facility] Albumin [Mass/volume] in Ser um or Plasma by Bromocresol green (BCG) dye binding methoOrdered By: Zhou Fischer on 03-17-2023 Albumin BCG dye [Mass/Vol] 4.4 g/dL 3.5-5.7 [facility] Alkaline phosphatase [Enzyma tic activity/volume] in Serum or PlasmaOrdered By: Zhou Fischer on 03-17-2023 ALP [Catalytic activity/Vol] 74 U/L 34-104 [facility] Aspartate aminotransferase [ Enzymatic activity/volume] in Serum or PlasmaOrdered By: Zhou Fischer on 03-17-2023 AST [Catalytic activity/Vol] 21 U/L 13-39 [facility] Basophils Auto (Bld) [#/Vol] Ordered By: Zhou Fischer on 03-17-2023 Basophils (Bld) [#/Vol] 0.0 10*3/uL 0.0-0.2 [facility] Basophils/100 WBC Auto (Bld) Ordered By: Zhou Fischer on 03-17-2023 Basophils/100 WBC (Bld) 0.7 % . [facility] Bilirubin.direct [Mass/volum e] in Serum or PlasmaOrdered By: Zhou Fischer on 03-17-2023 Bilirubin.direct [Mass/Vol] 0.10 mg/dL 0.03-0.18 [facility] Bilirubin.total [Mass/volume ] in Serum or PlasmaOrdered By: Zhou Fischer on 03-17-2023 Bilirubin [Mass/Vol] 0.5 mg/dL 0.3-1.0 [facility] Creatinine [Mass/volume] in Serum or PlasmaOrdered By: Zhou Fischer on 03-17-2023 Creatinine [Mass/Vol] 0.89 mg/dL 0.70-1.30 [facility] Eosinophils Auto (Bld) [#/Vo l]Ordered By: Zhou Fischer on 03-17-2023 Eosinophils (Bld) [#/Vol] 0.1 10*3/uL 0.0-0.45 [facility] Eosinophils/100 WBC Auto (Bl d)Ordered By: Zhou Fischer on 03-17-2023 Eosinophils/100 WBC (Bld) 2.0 % . [facility] Erythrocyte distribution wid th Auto (RBC) [Ratio]Ordered By: Zhou Fischer on 03-17-2023 Erythrocyte distribution width (RBC) [Ratio] 14.1 % 12.0-14.8 [facility] Erythrocyte sedimentation ra te by Photometric methodOrdered By: Zhou Fischer on 03-17-2023 ESR Photometric method (Bld) [Velocity] 5 mm/hr [facility] Globulin Calc (S) [Mass/Vol] Ordered By: Zhou Fischer on 03-17-2023 Globulin (S) [Mass/Vol] 2.4 g/dL [facility] Hematocrit Auto (Bld) [Volum e fraction]Ordered By: Zhou Fischer on 03-17-2023 Hematocrit (Bld) [Volume fraction] 41.8 % 38.8-50.0 [facility] Hemoglobin [Mass/volume] in BloodOrdered By: Zhou Fischer on 03-17-2023 Hemoglobin (Bld) [Mass/Vol] 14.4 g/dL 13.0-17.0 [facility] Leukocytes [#/volume] correc basim for nucleated erythrocytes in Blood by Automated counOrdered By: Zhou Fischer on 03-17-2023 WBC corrected for nucl RBC Auto (Bld) [#/Vol] 5.2 10*3/uL 4.1-10.5 [facility] Lymphocytes Auto (Bld) [#/Vo l]Ordered By: Zhou Fischer on 03-17-2023 Lymphocytes (Bld) [#/Vol] 1.4 10*3/uL 1.00-4.8 [facility] Lymphocytes/100 WBC Auto (Bl d)Ordered By: Zhou Fischer on 03-17-2023 Lymphocytes/100 WBC (Bld) 27.2 % . [facility] MCH Auto (RBC) [Entitic mass ]Ordered By: Zhou Fischer on 03-17-2023 MCH (RBC) [Entitic mass] 31.3 pg 27.5-35.2 [facility] MCHC Auto (RBC) [Mass/Vol]Or dered By: Zhou Fischer on 03-17-2023 MCHC (RBC) [Mass/Vol] 34.3 g/dL 32.5-35.6 [facility] MCV Auto (RBC) [Entitic vol] Ordered By: Zhou Fischer on 03-17-2023 MCV (RBC) [Entitic vol] 91.1 fL 83.5-101 [facility] Monocytes Auto (Bld) [#/Vol] Ordered By: Zhou Fischer on 03-17-2023 Monocytes (Bld) [#/Vol] 0.4 10*3/uL 0.0-0.8 [facility] Monocytes/100 WBC Auto (Bld) Ordered By: Zhou Fischer on 03-17-2023 Monocytes/100 WBC (Bld) 8.0 % . [facility] Neutrophils Auto (Bld) [#/Vo l]Ordered By: Zhou Fischer on 03-17-2023 Neutrophils (Bld) [#/Vol] 3.2 10*3/uL 1.8-7.7 [facility] Neutrophils/100 WBC Auto (Bl d)Ordered By: Zhou Fischer on 03-17-2023 Neutrophils/100 WBC (Bld) 62.1 % . [facility] No Panel InformationOrdered By: Zhou Fischer on 03-17-2023 Estimated GFR (CKD-EPI) > 60.0 mL/Min [facility] Creatinine Clearance (Chem N/A [facility] Nucleated erythrocytes [Pres ence] in Blood by Automated countOrdered By: Zhou Fischer on 03-17-2023 Nucleated RBC Auto Ql (Bld) 0.0 /100{WBC} 0-0.5 [facility] Platelet mean volume Auto (B ld) [Entitic vol]Ordered By: Zhou Fischer on 03-17-2023 Platelet mean volume (Bld) [Entitic vol] 8.4 fL 6.6-10.1 [facility] Platelets Auto (Bld) [#/Vol] Ordered By: Zhou Fischer on 03-17-2023 Platelets (Bld) [#/Vol] 326 10*3/uL 150-450 [facility] Protein [Mass/volume] in Ser um or PlasmaOrdered By: Zhou Fischer on 03-17-2023 Protein [Mass/Vol] 6.8 g/dL 6.4-8.9 [facility] RBC Auto (Bld) [#/Vol]Ordere d By: Zhou Fischer on 03-17-2023 RBC (Bld) [#/Vol] 4.59 10*6/uL 3.90-5.60 [facility] Serum or plasma albumin/glob ulin mass ratioOrdered By: Zhou Fischer on 03-17-2023 Albumin/Globulin [Mass ratio] 1.8 {ratio} [facility] Serum or plasma non-glucuron idated bilirubin measurement (mass/volume)Ordered By: Zhou Fischer on 03-17-2023 Bilirubin.indirect [Mass/Vol] 0.4 mg/dL [facility] WBC Auto (Bld) [#/Vol]Ordere d By: Zhou Fischer on 03-17-2023 WBC (Bld) [#/Vol] 5.2 10*3/uL 4.1-10.5 [facility] Alanine aminotransferase [En zymatic activity/volume] in Serum or PlasmaOrdered By: Zhou Fischer on 02-24-2023 ALT [Catalytic activity/Vol] 42 U/L 7-52 [facility] Albumin [Mass/volume] in Ser um or Plasma by Bromocresol green (BCG) dye binding methoOrdered By: Zhou Fischer on 02-24-2023 Albumin BCG dye [Mass/Vol] 4.6 g/dL 3.5-5.7 [facility] Alkaline phosphatase [Enzyma tic activity/volume] in Serum or PlasmaOrdered By: Zhou Fischer on 02-24-2023 ALP [Catalytic activity/Vol] 66 U/L 34-104 [facility] Aspartate aminotransferase [ Enzymatic activity/volume] in Serum or PlasmaOrdered By: Zhou Fischer on 02-24-2023 AST [Catalytic activity/Vol] 31 U/L 13-39 [facility] Basophils Auto (Bld) [#/Vol] Ordered By: Zhou Fischer on 02-24-2023 Basophils (Bld) [#/Vol] 0.0 10*3/uL 0.0-0.2 [facility] Basophils/100 WBC Auto (Bld) Ordered By: Zhou Fischer on 02-24-2023 Basophils/100 WBC (Bld) 0.6 % . [facility] Bilirubin.direct [Mass/volum e] in Serum or PlasmaOrdered By: Zhou Fischer on 02-24-2023 Bilirubin.direct [Mass/Vol] 0.10 mg/dL 0.03-0.18 [facility] Bilirubin.total [Mass/volume ] in Serum or PlasmaOrdered By: Zhou Fischer on 02-24-2023 Bilirubin [Mass/Vol] 0.6 mg/dL 0.3-1.0 [facility] Creatinine [Mass/volume] in Serum or PlasmaOrdered By: Zhou Fischer on 02-24-2023 Creatinine [Mass/Vol] 0.89 mg/dL 0.70-1.30 [facility] Eosinophils Auto (Bld) [#/Vo l]Ordered By: Zhou Fischer on 02-24-2023 Eosinophils (Bld) [#/Vol] 0.1 10*3/uL 0.0-0.45 [facility] Eosinophils/100 WBC Auto (Bl d)Ordered By: Zohu Fischer on 02-24-2023 Eosinophils/100 WBC (Bld) 2.8 % . [facility] Erythrocyte distribution wid th Auto (RBC) [Ratio]Ordered By: Zhou Fischer on 02-24-2023 Erythrocyte distribution width (RBC) [Ratio] 14.3 % 12.0-14.8 [facility] Erythrocyte sedimentation ra te by Photometric methodOrdered By: Zhou Fischer on 02-24-2023 ESR Photometric method (Bld) [Velocity] 4 mm/hr 0-19 [facility] Globulin Calc (S) [Mass/Vol] Ordered By: Zhou Fischer on 02-24-2023 Globulin (S) [Mass/Vol] 2.5 g/dL [facility] Hematocrit Auto (Bld) [Volum e fraction]Ordered By: Zhou Fischer on 02-24-2023 Hematocrit (Bld) [Volume fraction] 42.4 % 38.8-50.0 [facility] Hemoglobin [Mass/volume] in BloodOrdered By: Zhou Fischer on 02-24-2023 Hemoglobin (Bld) [Mass/Vol] 14.3 g/dL 13.0-17.0 [facility] Leukocytes [#/volume] correc basim for nucleated erythrocytes in Blood by Automated counOrdered By: Zhou Fischer on 02-24-2023 WBC corrected for nucl RBC Auto (Bld) [#/Vol] 5.2 10*3/uL 4.1-10.5 [facility] Lymphocytes Auto (Bld) [#/Vo l]Ordered By: Zhou Fischer on 02-24-2023 Lymphocytes (Bld) [#/Vol] 1.7 10*3/uL 1.00-4.8 [facility] Lymphocytes/100 WBC Auto (Bl d)Ordered By: Zhou Fischer on 02-24-2023 Lymphocytes/100 WBC (Bld) 32.9 % . [facility] MCH Auto (RBC) [Entitic mass ]Ordered By: Zhou Fischer on 02-24-2023 MCH (RBC) [Entitic mass] 30.9 pg 27.5-35.2 [facility] MCHC Auto (RBC) [Mass/Vol]Or dered By: Zhou Fischer on 02-24-2023 MCHC (RBC) [Mass/Vol] 33.7 g/dL 32.5-35.6 [facility] MCV Auto (RBC) [Entitic vol] Ordered By: Zhou Fischer on 02-24-2023 MCV (RBC) [Entitic vol] 91.8 fL 83.5-101 [facility] Monocytes Auto (Bld) [#/Vol] Ordered By: Zhou Fischer on 02-24-2023 Monocytes (Bld) [#/Vol] 0.5 10*3/uL 0.0-0.8 [facility] Monocytes/100 WBC Auto (Bld) Ordered By: Zhou Fischer on 02-24-2023 Monocytes/100 WBC (Bld) 9.2 % . [facility] Neutrophils Auto (Bld) [#/Vo l]Ordered By: Zhou Fischer on 02-24-2023 Neutrophils (Bld) [#/Vol] 2.8 10*3/uL 1.8-7.7 [facility] Neutrophils/100 WBC Auto (Bl d)Ordered By: Zhou Fischer on 02-24-2023 Neutrophils/100 WBC (Bld) 54.5 % . [facility] No Panel InformationOrdered By: Zhou Fischer on 02-24-2023 Estimated GFR (CKD-EPI) > 60.0 mL/Min [facility] Creatinine Clearance (Chem N/A [facility] Nucleated erythrocytes [Pres ence] in Blood by Automated countOrdered By: Zhou Fischer on 02-24-2023 Nucleated RBC Auto Ql (Bld) 0.1 /100{WBC} 0-0.5 [facility] Platelet mean volume Auto (B ld) [Entitic vol]Ordered By: Zhou Fischer on 02-24-2023 Platelet mean volume (Bld) [Entitic vol] 8.6 fL 6.6-10.1 [facility] Platelets Auto (Bld) [#/Vol] Ordered By: Zhou Fischer on 02-24-2023 Platelets (Bld) [#/Vol] 304 10*3/uL 150-450 [facility] Protein [Mass/volume] in Ser um or PlasmaOrdered By: Zhou Fischer on 02-24-2023 Protein [Mass/Vol] 7.1 g/dL 6.4-8.9 [facility] RBC Auto (Bld) [#/Vol]Ordere d By: Zhou Fischer on 02-24-2023 RBC (Bld) [#/Vol] 4.62 10*6/uL 3.90-5.60 [facility] Serum or plasma albumin/glob ulin mass ratioOrdered By: Zhou Fischer on 02-24-2023 Albumin/Globulin [Mass ratio] 1.8 {ratio} [facility] Serum or plasma non-glucuron idated bilirubin measurement (mass/volume)Ordered By: Zhou Fischer on 02-24-2023 Bilirubin.indirect [Mass/Vol] 0.5 mg/dL [facility] WBC Auto (Bld) [#/Vol]Ordere d By: Zhou Fischer on 02-24-2023 WBC (Bld) [#/Vol] 5.2 10*3/uL 4.1-10.5 [facility] Alanine aminotransferase [En zymatic activity/volume] in Serum or PlasmaOrdered By: Zhou Fischer on 01-26-2023 ALT [Catalytic activity/Vol] 33 U/L 7-52 [facility] Albumin [Mass/volume] in Ser um or Plasma by Bromocresol green (BCG) dye binding methoOrdered By: Zhou Fischer on 01-26-2023 Albumin BCG dye [Mass/Vol] 4.3 g/dL 3.5-5.7 [facility] Alkaline phosphatase [Enzyma tic activity/volume] in Serum or PlasmaOrdered By: Zhou Fischer on 01-26-2023 ALP [Catalytic activity/Vol] 70 U/L 34-104 [facility] Aspartate aminotransferase [ Enzymatic activity/volume] in Serum or PlasmaOrdered By: Zhou Fischer on 01-26-2023 AST [Catalytic activity/Vol] 24 U/L 13-39 [facility] Basophils Auto (Bld) [#/Vol] Ordered By: Zhou Fischer on 01-26-2023 Basophils (Bld) [#/Vol] 0.0 10*3/uL 0.0-0.2 [facility] Basophils/100 WBC Auto (Bld) Ordered By: Zhou Fischer on 01-26-2023 Basophils/100 WBC (Bld) 0.7 % . [facility] Bilirubin.direct [Mass/volum e] in Serum or PlasmaOrdered By: Zhou Fischer on 01-26-2023 Bilirubin.direct [Mass/Vol] 0.10 mg/dL 0.03-0.18 [facility] Bilirubin.total [Mass/volume ] in Serum or PlasmaOrdered By: Zhou Fischer on 01-26-2023 Bilirubin [Mass/Vol] 0.5 mg/dL 0.3-1.0 [facility] Creatinine [Mass/volume] in Serum or PlasmaOrdered By: Zhou Fischer on 01-26-2023 Creatinine [Mass/Vol] 0.83 mg/dL 0.70-1.30 [facility] Eosinophils Auto (Bld) [#/Vo l]Ordered By: Zhou Fischer on 01-26-2023 Eosinophils (Bld) [#/Vol] 0.1 10*3/uL 0.0-0.45 [facility] Eosinophils/100 WBC Auto (Bl d)Ordered By: Zhou Fischer on 01-26-2023 Eosinophils/100 WBC (Bld) 2.5 % . [facility] Erythrocyte distribution wid th Auto (RBC) [Ratio]Ordered By: Zhou Fischer on 01-26-2023 Erythrocyte distribution width (RBC) [Ratio] 13.7 % 12.0-14.8 [facility] Erythrocyte sedimentation ra te by Photometric methodOrdered By: Zhou Fischer on 01-26-2023 ESR Photometric method (Bld) [Velocity] 4 mm/hr 0-19 [facility] Globulin Calc (S) [Mass/Vol] Ordered By: Zhou Fischer 01-26-2023 Globulin (S) [Mass/Vol] 2.3 g/dL [facility] Hematocrit Auto (Bld) [Volum e fraction]Ordered By: Zhou Fischer on 01-26-2023 Hematocrit (Bld) [Volume fraction] 41.1 % 38.8-50.0 [facility] Hemoglobin [Mass/volume] in BloodOrdered By: Zhou Fischer on 01-26-2023 Hemoglobin (Bld) [Mass/Vol] 14.3 g/dL 13.0-17.0 [facility] Leukocytes [#/volume] correc basim for nucleated erythrocytes in Blood by Automated counOrdered By: Zhou Fischer on 01-26-2023 WBC corrected for nucl RBC Auto (Bld) [#/Vol] 5.6 10*3/uL 4.1-10.5 [facility] Lymphocytes Auto (Bld) [#/Vo l]Ordered By: Zhou Fischer on 01-26-2023 Lymphocytes (Bld) [#/Vol] 1.7 10*3/uL 1.00-4.8 [facility] Lymphocytes/100 WBC Auto (Bl d)Ordered By: Zhou Fischer on 01-26-2023 Lymphocytes/100 WBC (Bld) 29.7 % . [facility] MCH Auto (RBC) [Entitic mass ]Ordered By: Zhou Fischer on 01-26-2023 MCH (RBC) [Entitic mass] 31.1 pg 27.5-35.2 [facility] MCHC Auto (RBC) [Mass/Vol]Or dered By: Zhou Fischer on 01-26-2023 MCHC (RBC) [Mass/Vol] 34.9 g/dL 32.5-35.6 [facility] MCV Auto (RBC) [Entitic vol] Ordered By: Zhou Fischer on 01-26-2023 MCV (RBC) [Entitic vol] 89.2 fL 83.5-101 [facility] Monocytes Auto (Bld) [#/Vol] Ordered By: Zhou Fischer on 01-26-2023 Monocytes (Bld) [#/Vol] 0.5 10*3/uL 0.0-0.8 [facility] Monocytes/100 WBC Auto (Bld) Ordered By: Zhou Fischer on 01-26-2023 Monocytes/100 WBC (Bld) 8.7 % . [facility] Neutrophils Auto (Bld) [#/Vo l]Ordered By: Zhou Fischer on 01-26-2023 Neutrophils (Bld) [#/Vol] 3.3 10*3/uL 1.8-7.7 [facility] Neutrophils/100 WBC Auto (Bl d)Ordered By: Zhou Fischer on 01-26-2023 Neutrophils/100 WBC (Bld) 58.4 % . [facility] No Panel InformationOrdered By: Zhou Fischer on 01-26-2023 Estimated GFR (CKD-EPI) > 60.0 mL/Min [facility] Creatinine Clearance (Chem N/A [facility] Nucleated erythrocytes [Pres ence] in Blood by Automated countOrdered By: Zhou Fischer on 01-26-2023 Nucleated RBC Auto Ql (Bld) 0.1 /100{WBC} 0-0.5 [facility] Platelet mean volume Auto (B ld) [Entitic vol]Ordered By: Zhou Fischer on 01-26-2023 Platelet mean volume (Bld) [Entitic vol] 8.3 fL 6.6-10.1 [facility] Platelets Auto (Bld) [#/Vol] Ordered By: Zhou Fischer on 01-26-2023 Platelets (Bld) [#/Vol] 288 10*3/uL 150-450 [facility] Protein [Mass/volume] in Ser um or PlasmaOrdered By: Zhou Fischer on 01-26-2023 Protein [Mass/Vol] 6.6 g/dL 6.4-8.9 [facility] RBC Auto (Bld) [#/Vol]Ordere d By: Zhou Fischer on 01-26-2023 RBC (Bld) [#/Vol] 4.61 10*6/uL 3.90-5.60 [facility] Serum or plasma albumin/glob ulin mass ratioOrdered By: Zhou Fischer on 01-26-2023 Albumin/Globulin [Mass ratio] 1.9 {ratio} [facility] Serum or plasma non-glucuron idated bilirubin measurement (mass/volume)Ordered By: Zhou Fischer on 01-26-2023 Bilirubin.indirect [Mass/Vol] 0.4 mg/dL [facility] WBC Auto (Bld) [#/Vol]Ordere d By: Zhou Fischer on 01-26-2023 WBC (Bld) [#/Vol] 5.6 10*3/uL 4.1-10.5 [facility] Alanine aminotransferase [En zymatic activity/volume] in Serum or PlasmaOrdered By: Zhou Fischer on 01-12-2023 ALT [Catalytic activity/Vol] 40 U/L 7-52 [facility] Albumin [Mass/volume] in Ser um or Plasma by Bromocresol green (BCG) dye binding methoOrdered By: Zhou Fischer on 01-12-2023 Albumin BCG dye [Mass/Vol] 4.4 g/dL 3.5-5.7 [facility] Alkaline phosphatase [Enzyma tic activity/volume] in Serum or PlasmaOrdered By: Zhou Fischer on 01-12-2023 ALP [Catalytic activity/Vol] 69 U/L 34-104 [facility] Aspartate aminotransferase [ Enzymatic activity/volume] in Serum or PlasmaOrdered By: Zhou Fischer on 01-12-2023 AST [Catalytic activity/Vol] 27 U/L 13-39 [facility] Basophils Auto (Bld) [#/Vol] Ordered By: Zhou Fischer on 01-12-2023 Basophils (Bld) [#/Vol] 0.0 10*3/uL 0.0-0.2 [facility] Basophils/100 WBC Auto (Bld) Ordered By: Zhou Fischer on 01-12-2023 Basophils/100 WBC (Bld) 0.6 % . [facility] Bilirubin.direct [Mass/volum e] in Serum or PlasmaOrdered By: Zhou Fischer on 01-12-2023 Bilirubin.direct [Mass/Vol] 0.10 mg/dL 0.03-0.18 [facility] Bilirubin.total [Mass/volume ] in Serum or PlasmaOrdered By: Zhou Fischer on 01-12-2023 Bilirubin [Mass/Vol] 0.6 mg/dL 0.3-1.0 [facility] Creatinine [Mass/volume] in Serum or PlasmaOrdered By: Zhou Fischer on 01-12-2023 Creatinine [Mass/Vol] 0.94 mg/dL 0.70-1.30 [facility] Eosinophils Auto (Bld) [#/Vo l]Ordered By: Zhou Fischer on 01-12-2023 Eosinophils (Bld) [#/Vol] 0.1 10*3/uL 0.0-0.45 [facility] Eosinophils/100 WBC Auto (Bl d)Ordered By: Zhou Fischer on 01-12-2023 Eosinophils/100 WBC (Bld) 2.3 % . [facility] Erythrocyte distribution wid th Auto (RBC) [Ratio]Ordered By: Zhou Fischer on 01-12-2023 Erythrocyte distribution width (RBC) [Ratio] 13.5 % 12.0-14.8 [facility] Erythrocyte sedimentation ra te by Photometric methodOrdered By: Zhou Fischer on 01-12-2023 ESR Photometric method (Bld) [Velocity] 5 mm/hr 0-19 [facility] Globulin Calc (S) [Mass/Vol] Ordered By: Zhou Fischer on 01-12-2023 Globulin (S) [Mass/Vol] 2.5 g/dL [facility] Hematocrit Auto (Bld) [Volum e fraction]Ordered By: Zhou Fischer on 01-12-2023 Hematocrit (Bld) [Volume fraction] 41.6 % 38.8-50.0 [facility] Hemoglobin [Mass/volume] in BloodOrdered By: Zhou Fischer on 01-12-2023 Hemoglobin (Bld) [Mass/Vol] 14.4 g/dL 13.0-17.0 [facility] Leukocytes [#/volume] correc basim for nucleated erythrocytes in Blood by Automated counOrdered By: Zhou Fischer on 01-12-2023 WBC corrected for nucl RBC Auto (Bld) [#/Vol] 5.5 10*3/uL 4.1-10.5 [facility] Lymphocytes Auto (Bld) [#/Vo l]Ordered By: Zhou Fischer on 01-12-2023 Lymphocytes (Bld) [#/Vol] 1.4 10*3/uL 1.00-4.8 [facility] Lymphocytes/100 WBC Auto (Bl d)Ordered By: Zhou Fischer on 01-12-2023 Lymphocytes/100 WBC (Bld) 25.3 % . [facility] MCH Auto (RBC) [Entitic mass ]Ordered By: Zhou Fischer on 01-12-2023 MCH (RBC) [Entitic mass] 30.9 pg 27.5-35.2 [facility] MCHC Auto (RBC) [Mass/Vol]Or dered By: Zhou Fischer on 01-12-2023 MCHC (RBC) [Mass/Vol] 34.5 g/dL 32.5-35.6 [facility] MCV Auto (RBC) [Entitic vol] Ordered By: Zhou Fischer on 01-12-2023 MCV (RBC) [Entitic vol] 89.4 fL 83.5-101 [facility] Monocytes Auto (Bld) [#/Vol] Ordered By: Zhou Fischer on 01-12-2023 Monocytes (Bld) [#/Vol] 0.5 10*3/uL 0.0-0.8 [facility] Monocytes/100 WBC Auto (Bld) Ordered By: Zhou Fischer on 01-12-2023 Monocytes/100 WBC (Bld) 9.1 % . [facility] Neutrophils Auto (Bld) [#/Vo l]Ordered By: Zhou Fischer on 01-12-2023 Neutrophils (Bld) [#/Vol] 3.4 10*3/uL 1.8-7.7 [facility] Neutrophils/100 WBC Auto (Bl d)Ordered By: Zhou Fischer on 01-12-2023 Neutrophils/100 WBC (Bld) 62.7 % . [facility] No Panel InformationOrdered By: Zhou Fischer on 01-12-2023 Estimated GFR (CKD-EPI) > 60.0 mL/Min [facility] Creatinine Clearance (Chem N/A [facility] Nucleated erythrocytes [Pres ence] in Blood by Automated countOrdered By: Zhou Fischer on 01-12-2023 Nucleated RBC Auto Ql (Bld) 0.1 /100{WBC} 0-0.5 [facility] Platelet mean volume Auto (B ld) [Entitic vol]Ordered By: Zhou Fischer on 01-12-2023 Platelet mean volume (Bld) [Entitic vol] 8.2 fL 6.6-10.1 [facility] Platelets Auto (Bld) [#/Vol] Ordered By: Zhou Fischer on 01-12-2023 Platelets (Bld) [#/Vol] 291 10*3/uL 150-450 [facility] Protein [Mass/volume] in Ser um or PlasmaOrdered By: Zhou Fischer on 01-12-2023 Protein [Mass/Vol] 6.9 g/dL 6.4-8.9 [facility] RBC Auto (Bld) [#/Vol]Ordere d By: Zhou Fischer on 01-12-2023 RBC (Bld) [#/Vol] 4.65 10*6/uL 3.90-5.60 [facility] Serum or plasma albumin/glob ulin mass ratioOrdered By: Zhou Fischer on 01-12-2023 Albumin/Globulin [Mass ratio] 1.8 {ratio} [facility] Serum or plasma non-glucuron idated bilirubin measurement (mass/volume)Ordered By: Zhou Fischer on 01-12-2023 Bilirubin.indirect [Mass/Vol] 0.5 mg/dL [facility] WBC Auto (Bld) [#/Vol]Ordere d By: Zhou Fischer on 01-12-2023 WBC (Bld) [#/Vol] 5.5 10*3/uL 4.1-10.5 [facility] Hepatitis B virus surface Ag [Presence] in Serum or Plasma by ImmunoassayOrdered By: Zhou Fischer on 12-23-2022 HBV surface Ag IA Ql Negative Negative [facility] Hepatitis C virus IgG Ab [Pr esence] in Serum or Plasma by ImmunoassayOrdered By: Zhou Fischer on 12-23-2022 HCV IgG IA Ql Non-Reactive Non Reactive [facility] No Panel InformationOrdered By: Zhou Fischer on 12-23-2022 Hepatitis B Core Total Antibody Negative Negative [facility] Comment on above: Performed at: - [address] [id number] Director: Martin Forbes PhD, Phone: [phone] Hepatitis C Interpretation See comment . [facility] Comment on above: Not infected with HC V unless early or acute infection issuspected (which may be delayed in an immunocompromisedindividual), or other evidence exists to indicate HCVinfection. Hepatitis C RNA Quantitative N/A [facility] Serum hepatitis B virus surf mariia antibody detectionOrdered By: Zhou Fischer on 12-23-2022 HBV surface Ab Ql (S) Non-Reactive . [facility] Comment on above: Non Reactive: Incons istent with immunity, less than 10 mIU/mL Reactive: Consistent with immunity, greater than 9.9 mIU/mL Alanine aminotransferase [En zymatic activity/volume] in Serum or PlasmaOrdered By: Zhou Fischer on 12-16-2022 ALT [Catalytic activity/Vol] 33 U/L 7-52 [facility] Albumin [Mass/volume] in Ser um or Plasma by Bromocresol green (BCG) dye binding methoOrdered By: Zhou Fischer on 12-16-2022 Albumin BCG dye [Mass/Vol] 4.6 g/dL 3.5-5.7 [facility] Alkaline phosphatase [Enzyma tic activity/volume] in Serum or PlasmaOrdered By: Zhou Fischer on 12-16-2022 ALP [Catalytic activity/Vol] 73 U/L 34-104 [facility] Aspartate aminotransferase [ Enzymatic activity/volume] in Serum or PlasmaOrdered By: Zhou Fischer on 12-16-2022 AST [Catalytic activity/Vol] 26 U/L 13-39 [facility] Automated erythrocytes count in urine sediment (number/area)Ordered By: Zhou Fischer on 12-16-2022 RBC Auto (Urine sed) [#/Area] 1-2 [HPF] 0-4 [facility] Automated leukocytes count i n urine sediment (number/area)Ordered By: Zhou Fischer on 12-16-2022 WBC Auto (Urine sed) [#/Area] 0-1 [HPF] 0-4 [facility] Basophils Auto (Bld) [#/Vol] Ordered By: Zhou Fischer on 12-16-2022 Basophils (Bld) [#/Vol] 0.0 10*3/uL 0.0-0.2 [facility] Basophils/100 WBC Auto (Bld) Ordered By: Zhou Fischer on 12-16-2022 Basophils/100 WBC (Bld) 0.7 % . [facility] Bilirubin Auto test strip Ql (U)Ordered By: Zhou Fischer on 12-16-2022 Bilirubin Ql (U) Negative Negative [facility] Bilirubin.total [Mass/volume ] in Serum or PlasmaOrdered By: Zhou Fischer on 12-16-2022 Bilirubin [Mass/Vol] 0.6 mg/dL 0.3-1.0 [facility] C reactive protein [Mass/vol ume] in Serum or PlasmaOrdered By: Zhou Fischer on 12-16-2022 CRP [Mass/Vol] < 0.5 mg/dL 0.0-0.5 [facility] Calcium [Mass/volume] in Ser um or PlasmaOrdered By: Zhou Fischer on 12-16-2022 Calcium [Mass/Vol] 9.5 mg/dL 8.6-10.3 [facility] Carbon dioxide, total [Moles /volume] in Serum or PlasmaOrdered By: Zhou Fischer on 12-16-2022 CO2 [Moles/Vol] 28.8 mmol/L 21.0-31.0 [facility] Chloride [Moles/volume] in S honey or PlasmaOrdered By: Zhou Fischer on 12-16-2022 Chloride [Moles/Vol] 103 mmol/L 98-107 [facility] Creatinine [Mass/volume] in Serum or PlasmaOrdered By: Zhou Fischer on 12-16-2022 Creatinine [Mass/Vol] 0.91 mg/dL 0.70-1.30 [facility] Eosinophils Auto (Bld) [#/Vo l]Ordered By: Zhou Fischer on 12-16-2022 Eosinophils (Bld) [#/Vol] 0.1 10*3/uL 0.0-0.45 [facility] Eosinophils/100 WBC Auto (Bl d)Ordered By: Zhou Fischer on 12-16-2022 Eosinophils/100 WBC (Bld) 2.3 % . [facility] Erythrocyte distribution wid th Auto (RBC) [Ratio]Ordered By: Zhou Fischer on 12-16-2022 Erythrocyte distribution width (RBC) [Ratio] 13.5 % 12.0-14.8 [facility] Erythrocyte sedimentation ra te by Photometric methodOrdered By: Zhou Fischer on 12-16-2022 ESR Photometric method (Bld) [Velocity] 6 mm/hr 0-19 [facility] Globulin Calc (S) [Mass/Vol] Ordered By: Zhou Fischer on 12-16-2022 Globulin (S) [Mass/Vol] 2.1 g/dL [facility] Glucose [Mass/volume] in Ser um or PlasmaOrdered By: Zhou Fischer on 12-16-2022 Glucose [Mass/Vol] 89 mg/dL 70-100 [facility] Comment on above: ADA recommended refe rence rangeRandom Glucose Reference Range is dependent on time and content of last meal. Glucose of more than 200 mg/dL in a nonstressed, ambulatory subject supports the diagnosis of Diabetes Mellitus. Hematocrit Auto (Bld) [Volum e fraction]Ordered By: Zhou Fischer on 12-16-2022 Hematocrit (Bld) [Volume fraction] 42.7 % 38.8-50.0 [facility] Hemoglobin [Mass/volume] in BloodOrdered By: Zhou Fischer on 12-16-2022 Hemoglobin (Bld) [Mass/Vol] 14.7 g/dL 13.0-17.0 [facility] Ketones Auto test strip (U) [Mass/Vol]Ordered By: Zhou Fischer on 12-16-2022 Ketones (U) [Mass/Vol] Negative Negative [facility] - UrinalysisOrder ed By: Zhou Fischer on 12-16-2022 Hyaline casts LM Ql (Urine sed) None seen [LPF] 0-8 [facility] Leukocytes [#/volume] correc basim for nucleated erythrocytes in Blood by Automated counOrdered By: Zhou Fischer on 12-16-2022 WBC corrected for nucl RBC Auto (Bld) [#/Vol] 5.8 10*3/uL 4.1-10.5 [facility] Lymphocytes Auto (Bld) [#/Vo l]Ordered By: Zhou Fischer on 12-16-2022 Lymphocytes (Bld) [#/Vol] 1.6 10*3/uL 1.00-4.8 [facility] Lymphocytes/100 WBC Auto (Bl d)Ordered By: Zhou Fischer on 12-16-2022 Lymphocytes/100 WBC (Bld) 27.5 % . [facility] MCH Auto (RBC) [Entitic mass ]Ordered By: Zhou Fischer on 12-16-2022 MCH (RBC) [Entitic mass] 30.8 pg 27.5-35.2 [facility] MCHC Auto (RBC) [Mass/Vol]Or dered By: Zhou Fischer on 12-16-2022 MCHC (RBC) [Mass/Vol] 34.4 g/dL 32.5-35.6 [facility] MCV Auto (RBC) [Entitic vol] Ordered By: Zhou Fischer on 12-16-2022 MCV (RBC) [Entitic vol] 89.6 fL 83.5-101 [facility] Monocytes Auto (Bld) [#/Vol] Ordered By: Zhou Fischer on 12-16-2022 Monocytes (Bld) [#/Vol] 0.5 10*3/uL 0.0-0.8 [facility] Monocytes/100 WBC Auto (Bld) Ordered By: Zhou Fischer on 12-16-2022 Monocytes/100 WBC (Bld) 9.2 % . [facility] Neutrophils Auto (Bld) [#/Vo l]Ordered By: Zhou Fischer on 12-16-2022 Neutrophils (Bld) [#/Vol] 3.5 10*3/uL 1.8-7.7 [facility] Neutrophils/100 WBC Auto (Bl d)Ordered By: Zhou Fischer on 12-16-2022 Neutrophils/100 WBC (Bld) 60.3 % . [facility] No Panel InformationOrdered By: Zhou Fischer on 12-16-2022 Estimated GFR (CKD-EPI) > 60.0 mL/Min [facility] Creatinine Clearance (Chem N/A [facility] Nucleated erythrocytes [Pres ence] in Blood by Automated countOrdered By: Zhou Fischer on 12-16-2022 Nucleated RBC Auto Ql (Bld) 0.1 /100{WBC} 0-0.5 [facility] Platelet mean volume Auto (B ld) [Entitic vol]Ordered By: Zhou Fischer on 12-16-2022 Platelet mean volume (Bld) [Entitic vol] 8.7 fL 6.6-10.1 [facility] Platelets Auto (Bld) [#/Vol] Ordered By: Zhou Fischer on 12-16-2022 Platelets (Bld) [#/Vol] 284 10*3/uL 150-450 [facility] Potassium [Moles/volume] in Serum or PlasmaOrdered By: Zhou Fischer on 12-16-2022 Potassium [Moles/Vol] 4.5 mmol/L 3.5-5.1 [facility] Protein Auto test strip (U) [Mass/Vol]Ordered By: Zhou Fischer on 12-16-2022 Protein (U) [Mass/Vol] Negative Negative [facility] Protein [Mass/volume] in Ser um or PlasmaOrdered By: Zhou Fischer on 12-16-2022 Protein [Mass/Vol] 6.7 g/dL 6.4-8.9 [facility] RBC Auto (Bld) [#/Vol]Ordere d By: Zhou Fischer on 12-16-2022 RBC (Bld) [#/Vol] 4.76 10*6/uL 3.90-5.60 [facility] Serum or plasma albumin/glob ulin mass ratioOrdered By: Zhou Fischer on 12-16-2022 Albumin/Globulin [Mass ratio] 2.2 {ratio} [facility] Serum or plasma anion gap de terminationOrdered By: Zhou Fischer on 12-16-2022 Anion gap [Moles/Vol] 10.7 mmol/L 6.0-15.0 [facility] Serum or plasma complement C 3 measurement (mass/volume)Ordered By: Zhou Fischer on 12-16-2022 Complement C3 [Mass/Vol] 122 mg/dL 82-167 [facility] Comment on above: Performed at: - [address] [id number] Director: Martin Forbes PhD, Phone: [phone] Serum or plasma complement C 4 measurement (mass/volume)Ordered By: Zhou Fischer on 12-16-2022 Complement C4 [Mass/Vol] 21 mg/dL 12-38 [facility] Sodium [Moles/volume] in Ser um or PlasmaOrdered By: Zhou Fischer on 06-20-2023 Sodium [Moles/Vol] 138 mmol/L 136-145 [facility] Squamous epithelial cells de tection in urine sediment by light microscopyOrdered By: Zhou Fischer on 12-16-2022 Epithelial cells.squamous LM Ql (Urine sed) None seen [HPF] 0-2 [facility] Urea nitrogen [Mass/volume] in Serum or PlasmaOrdered By: Zhou Fischer on 12-16-2022 Urea nitrogen [Mass/Vol] 13 mg/dL 7-25 [facility] Urine appearanceOrdered By: Zhou Fischer on 12-16-2022 Appearance (U) Clear Clear [facility] Urine bacteria detection by automated methodOrdered By: Zhou Fischer on 12-16-2022 Bacteria Auto Ql (U) None seen None Seen [facility] Urine colorOrdered By: Mohamud Fischer on 12-16-2022 Color (U) Yellow Yellow [facility] Urine glucose measurement by automated test strip (mass/volume)Ordered By: Zhou Fischer on 12-16-2022 Glucose Auto test strip (U) [Mass/Vol] Normal mg/dL Normal [facility] Urine hemoglobin detection b y automated test stripOrdered By: Zhou Fischer on 12-16-2022 Hemoglobin Auto test strip Ql (U) Negative Negative [facility] Urine leukocyte esterase det ection by automated test stripOrdered By: Zhou Fischer on 12-16-2022 Leukocyte esterase Auto test strip Ql (U) Negative Negative [facility] Urine nitrite detection by a utomated test stripOrdered By: Zhou Fischer on 12-16-2022 Nitrite Auto test strip Ql (U) Negative Negative [facility] Urobilinogen Auto test strip (U) [Mass/Vol]Ordered By: Zhou Fischer on 12-16-2022 Urobilinogen (U) [Mass/Vol] Normal mg/dL Normal [facility] WBC Auto (Bld) [#/Vol]Ordere d By: Zhou Fischer on 12-16-2022 WBC (Bld) [#/Vol] 5.8 10*3/uL 4.1-10.5 [facility] pH Auto test strip (U)Ordere d By: Zhou Fischer on 12-16-2022 pH (U) 1.020 [pH] 1.001-1.030 [facility] pH (U) 5.5 [pH] 5.0-9.0 [facility] CULTURE URINEon 11-17-2022 CULTURE URINE Culture Observations: NO GROWTH. Normal [facility] Comment on above: Performed By: #### U RCX #### [facility] [address] [place] [address] Dr. Emily Copeland UA RANDOMon 11-17-2022 Bilirubin Ql (U) Negative Normal NEGATIVE [facility] Comment on above: Performed By: #### U A #### [facility] [address] [place] [address] Dr. Emily Copeland Clarity (U) CLEAR Normal CLEAR [facility] Comment on above: Performed By: #### U A #### [facility] [address] [place] [address] Dr. Emily Copeland Color (U) LT. YELLOW Normal YELLOW [facility] Comment on above: Performed By: #### U A #### [facility] [address] [place] [address] Dr. Emily Copeland Glucose Ql (U) Negative Normal NEGATIVE [facility] Comment on above: Performed By: #### U A #### [facility] [address] [place] [address] Dr. Emily Copeland Hemoglobin Ql (U) TRACE-INTACT Abnormal NEGATIVE [facility] Comment on above: Performed By: #### U A #### [facility] [address] [place] [address] Dr. Emily Copeland Ketones Ql (U) Negative Normal NEGATIVE [facility] Comment on above: Performed By: #### U A #### [facility] [address] [place] [address] Dr. Emily Copeland LEUKOCYTES Negative Normal NEGATIVE [facility] Comment on above: Performed By: #### U A #### [facility] [address] [place] [address] Dr. Emily Copeland Nitrite Ql (U) Negative Normal NEGATIVE [facility] Comment on above: Performed By: #### U A #### [facility] [address] [address] [address] Emily Copeland pH (U) 6.0 [pH] Normal 5-9 [facility] Comment on above: Performed By: #### U A #### [facility] [address] [address] [address] Emily Copeland SPEC GRAVITY 1.010 Normal 1.005-<=1.02 5 [facility] Comment on above: Performed By: #### U A #### [facility] [address] [address] [address] Emily Copeland UA PROTEIN Negative Normal NEGATIVE/ TRACE [facility] Comment on above: Performed By: #### U A #### [facility] [address] [address] [address] Emily Copeland Urobilinogen Qn (U) 0.2 {Eron'U}/dL Normal 0.2 - 1. 0 [facility] Comment on above: Performed By: #### U A #### [facility] [address] [address] [address] Emily Copeland UA DIP, URINE (POC)on 2022 BILIRUBIN UA (POCT) Negative Negative [facility] CLARITY UA (POCT) Clear [facility] COLOR UA (POCT) Yellow [facility] GLUCOSE UA (POCT) Negative Negative mg/dL [facility] HEMOGLOBIN/BLOOD UA (POCT) Negative Negative [facility] KETONE UA (POCT) Negative Negative mg/dL [facility] LEUKOCYTES UA (POCT) Negative Negative [facility] NITRITE UA (POCT) Negative Negative [facility] PH UA (POCT) 6.5 4.5 - 8.0 [facility] Protein Ql (U) Negative Negative mg/dL [facility] SPECIFIC GRAVITY UA (POCT) 1.015 1.005 - 1.030 [facility] UROBILINOGEN UA (POCT) 0.2 E.U./dL [place] E.U./dL [facility] UA DIP, URINE (POC)on 2022 BILIRUBIN UA (POCT) Negative Negative [facility] CLARITY UA (POCT) Clear [facility] COLOR UA (POCT) Yellow [facility] GLUCOSE UA (POCT) Negative Negative mg/dL [facility] HEMOGLOBIN/BLOOD UA (POCT) Negative Negative [facility] KETONE UA (POCT) Negative Negative mg/dL [facility] LEUKOCYTES UA (POCT) Negative Negative [facility] NITRITE UA (POCT) Negative Negative [facility] PH UA (POCT) 7.0 4.5 - 8.0 [facility] Protein Ql (U) Negative Negative mg/dL [facility] SPECIFIC GRAVITY UA (POCT) 1.015 1.005 - 1.030 [facility] UROBILINOGEN UA (POCT) 0.2 E.U./dL [place] E.U./dL [facility] Albumin [Mass/volume] in Ser um or PlasmaOrdered By: Zhou Fischer on 07-01-2022 Albumin [Mass/Vol] 4.3 g/dL 3.2-5.5 [facility] Automated erythrocytes count in urine sediment (number/area)Ordered By: Zhou Fischer on 07-01-2022 RBC Auto (Urine sed) [#/Area] None seen [HPF] 0-4 [facility] Automated leukocytes count i n urine sediment (number/area)Ordered By: Zhou Fischer on 07-01-2022 WBC Auto (Urine sed) [#/Area] None seen [HPF] 0-4 [facility] Basophils Auto (Bld) [#/Vol] Ordered By: Zhou Fischer on 07-01-2022 Basophils (Bld) [#/Vol] 0.0 10*3/uL 0.0-0.2 [facility] Basophils/100 WBC Auto (Bld) Ordered By: Zhou Fischer on 07-01-2022 Basophils/100 WBC (Bld) 0.4 % . [facility] Bilirubin Test strip Ql (U)O rdered By: Zhou Fischer on 07-01-2022 Bilirubin Ql (U) Negative Negative [facility] C reactive protein [Mass/vol ume] in Serum or PlasmaOrdered By: Zhou Fischer on 07-01-2022 CRP [Mass/Vol] 0.5 mg/dL 0.0-1.0 [facility] Color Auto (U)Ordered By: Laurie Fischer on 07-01-2022 Color (U) Yellow Yellow [facility] Creatine kinase [Enzymatic a ctivity/volume] in Serum or PlasmaOrdered By: Zhou Fischer on 07-01-2022 CK [Catalytic activity/Vol] 102 U/L 22-269 [facility] Creatinine and Glomerular fi ltration rate.predicted panel (S/P/Bld)Ordered By: Zhou Fischer on 07-01-2022 Creatinine [Mass/Vol] 0.93 mg/dL 0.64-1.27 [facility] Eosinophils Auto (Bld) [#/Vo l]Ordered By: Zhou Fischer on 07-01-2022 Eosinophils (Bld) [#/Vol] 0.1 10*3/uL 0.0-0.45 [facility] Eosinophils/100 WBC Auto (Bl d)Ordered By: Zhou Fischer on 07-01-2022 Eosinophils/100 WBC (Bld) 2.5 % . [facility] Erythrocyte distribution wid th Auto (RBC) [Ratio]Ordered By: Zhou Fischer on 07-01-2022 Erythrocyte distribution width (RBC) [Ratio] 13.9 % 12.0-14.8 [facility] Estimated glomerular filtrat ion rate (GFR) non- AmericanOrdered By: Zhou Fischer on 07-01-2022 GFR/1.73 sq M.predicted among non-blacks MDRD (S/P/Bld) [Vol rate/Area] > 60 mL/Min [facility] Globulin Calc (S) [Mass/Vol] Ordered By: Zhou Fischer on 07-01-2022 Globulin (S) [Mass/Vol] 2.5 g/dL [facility] Hematocrit Auto (Bld) [Volum e fraction]Ordered By: Zhou Fischer on 07-01-2022 Hematocrit (Bld) [Volume fraction] 46.1 % 38.8-50.0 [facility] Hemoglobin [Mass/volume] in BloodOrdered By: Zhou Fischer on 07-01-2022 Hemoglobin (Bld) [Mass/Vol] 15.7 g/dL 13.0-17.0 [facility] Ketones Auto test strip (U) [Mass/Vol]Ordered By: Zhou Fischer on 07-01-2022 Ketones (U) [Mass/Vol] Negative Negative [facility] - UrinalysisOrder ed By: Zhou Fischer on 07-01-2022 Hyaline casts LM Ql (Urine sed) None seen [LPF] 0-8 [facility] Leukocytes [#/volume] correc basim for nucleated erythrocytes in Blood by Automated counOrdered By: Zhou Fischer on 07-01-2022 WBC corrected for nucl RBC Auto (Bld) [#/Vol] 5.9 10*3/uL 4.1-10.5 [facility] Lymphocytes Auto (Bld) [#/Vo l]Ordered By: Zhou Fischer on 07-01-2022 Lymphocytes (Bld) [#/Vol] 1.5 10*3/uL 1.00-4.8 [facility] Lymphocytes/100 WBC Auto (Bl d)Ordered By: Zhou Fischer on 07-01-2022 Lymphocytes/100 WBC (Bld) 25.1 % . [facility] MCH Auto (RBC) [Entitic mass ]Ordered By: Zhou Fischer on 07-01-2022 MCH (RBC) [Entitic mass] 30.4 pg 27.5-35.2 [facility] MCHC Auto (RBC) [Mass/Vol]Or dered By: Zhou Fischer on 07-01-2022 MCHC (RBC) [Mass/Vol] 34.0 g/dL 32.5-35.6 [facility] MCV Auto (RBC) [Entitic vol] Ordered By: Zhou Fischer on 07-01-2022 MCV (RBC) [Entitic vol] 89.5 fL 83.5-101 [facility] Monocytes Auto (Bld) [#/Vol] Ordered By: Zhou Fischer on 07-01-2022 Monocytes (Bld) [#/Vol] 0.5 10*3/uL 0.0-0.8 [facility] Monocytes/100 WBC Auto (Bld) Ordered By: Zhou Fischer on 07-01-2022 Monocytes/100 WBC (Bld) 8.4 % . [facility] Neutrophils Auto (Bld) [#/Vo l]Ordered By: Zhou Fischer on 07-01-2022 Neutrophils (Bld) [#/Vol] 3.7 10*3/uL 1.8-7.7 [facility] Neutrophils/100 WBC Auto (Bl d)Ordered By: Zhou Fischer on 07-01-2022 Neutrophils/100 WBC (Bld) 63.6 % . [facility] Nitrite Test strip Ql (U)Ord ered By: Zhou Fischer on 07-01-2022 Nitrite Ql (U) Negative Negative [facility] No Panel InformationOrdered By: Zhou Fischer on 07-01-2022 Estimated GFR () > 60 mL/Min [facility] Comment on above: GFR estimated refere nce range: According to KDOQI guidelines, <60 ml/min/1.73m2 is sufficient to diagnose a patient with chronic kidney disease. Pharmacy Creatinine Clearance (Chem N/A [facility] Nucleated erythrocytes [Pres ence] in Blood by Automated countOrdered By: Zhou Fischer on 07-01-2022 Nucleated RBC Auto Ql (Bld) 0.1 /100{WBC} 0-0.5 [facility] Platelet mean volume Auto (B ld) [Entitic vol]Ordered By: Zhou Fischer on 07-01-2022 Platelet mean volume (Bld) [Entitic vol] 8.4 fL 6.6-10.1 [facility] Platelets Auto (Bld) [#/Vol] Ordered By: Zhou Fischer on 07-01-2022 Platelets (Bld) [#/Vol] 323 10*3/uL 150-450 [facility] Protein Auto test strip (U) [Mass/Vol]Ordered By: Zhou Fischer on 07-01-2022 Protein (U) [Mass/Vol] Negative Negative [facility] Protein [Mass/volume] in Ser um or PlasmaOrdered By: Zhou Fischer on 07-01-2022 Protein [Mass/Vol] 6.8 g/dL 6.1-7.9 [facility] RBC Auto (Bld) [#/Vol]Ordere d By: Zhou Fischer on 07-01-2022 RBC (Bld) [#/Vol] 5.15 10*6/uL 3.90-5.60 [facility] Serum or plasma alanine castelan otransferase measurement without P-5'-P (enzymatic activiOrdered By: Zhou Fischer on 07-01-2022 ALT No additional P-5'-P [Catalytic activity/Vol] 54 U/L 10-60 [facility] Serum or plasma albumin/glob ulin mass ratioOrdered By: Zhou Fischer on 07-01-2022 Albumin/Globulin [Mass ratio] 1.7 {ratio} [facility] Serum or plasma alkaline saurabh sphatase measurement (enzymatic activity/volume)Ordered By: Zhou Fischer on 07-01-2022 ALP [Catalytic activity/Vol] 73 U/L 32-92 [facility] Serum or plasma anion gap de terminationOrdered By: Zhou Fischer on 07-01-2022 Anion gap [Moles/Vol] 13.0 mmol/L 6.0-15.0 [facility] Serum or plasma aspartate am inotransferase measurement (enzymatic activity/volume)Ordered By: Zhou Fischer on 07-01-2022 AST [Catalytic activity/Vol] 35 U/L 10-42 [facility] Serum or plasma calcium adelso urement (mass/volume)Ordered By: Zhou Fischer on 07-01-2022 Calcium [Mass/Vol] 9.7 mg/dL 8.2-10.2 [facility] Serum or plasma chloride yannick surement (moles/volume)Ordered By: Zhou Fischer on 07-01-2022 Chloride [Moles/Vol] 99 mmol/L 95-114 [facility] Serum or plasma glucose adelso urement (mass/volume)Ordered By: Zhou Fischer on 07-01-2022 Glucose [Mass/Vol] 87 mg/dL 70-100 [facility] Comment on above: ADA recommended refe rence rangeRandom Glucose Reference Range is dependent on time and content of last meal. Glucose of more than 200 mg/dL in a nonstressed, ambulatory subject supports the diagnosis of Diabetes Mellitus. Serum or plasma intact parat hyroid hormone measurement (mass/volume)Ordered By: Zhou Fischer on 07-01-2022 Parathyrin.intact [Mass/Vol] 38.6 pg/mL 12 [facility] Serum or plasma potassium me asurement (moles/volume)Ordered By: Zhou Fischer on 07-01-2022 Potassium [Moles/Vol] 4.4 mmol/L 3.5-5.1 [facility] Serum or plasma sodium measu rement (moles/volume)Ordered By: Zhou Fischer on 07-01-2022 Sodium [Moles/Vol] 133 mmol/L 136-146 [facility] Serum or plasma total biliru bin measurement (mass/volume)Ordered By: Zhou Fischer on 07-01-2022 Bilirubin [Mass/Vol] 0.6 mg/dL 0.3-1.2 [facility] Serum or plasma total carbon dioxide measurement (moles/volume)Ordered By: Zhou Fischer on 07-01-2022 CO2 [Moles/Vol] 25.4 mmol/L 22.0-30.0 [facility] Serum or plasma urea nitroge n measurement (mass/volume)Ordered By: Zhou Fischer on 07-01-2022 Urea nitrogen [Mass/Vol] 13 mg/dL 9-23 [facility] Specific gravity Auto test s trip (U) [Rel density]Ordered By: Zhou Fischer on 07-01-2022 Specific gravity (U) [Rel density] 1.004 1.001-1.030 [facility] Squamous epithelial cells de tection in urine sediment by light microscopyOrdered By: Zhou Fischer on 07-01-2022 Epithelial cells.squamous LM Ql (Urine sed) None seen [HPF] 0-2 [facility] TSH DL <= 0.005 mIU/L QnOrde red By: Zhou Fischer on 07-01-2022 TSH Qn 1.31 m[IU]/L 0.45-5.33 [facility] Urine bacteria detection by automated methodOrdered By: Zhou Fischer on 07-01-2022 Bacteria Auto Ql (U) None seen None Seen [facility] Urine clarity by refractomet ry automatedOrdered By: Zhou Fischer on 07-01-2022 Clarity Refractometry automated (U) Clear Clear [facility] Urine glucose measurement by automated test strip (mass/volume)Ordered By: Zhou Fischer on 07-01-2022 Glucose Auto test strip (U) [Mass/Vol] Normal mg/dL Normal [facility] Urine hemoglobin detection b y automated test stripOrdered By: Zhou Fischer on 07-01-2022 Hemoglobin Auto test strip Ql (U) Negative Negative [facility] Urine leukocyte esterase det ection by automated test stripOrdered By: Zhou Fischer on 07-01-2022 Leukocyte esterase Auto test strip Ql (U) Negative Negative [facility] Urobilinogen Auto test strip (U) [Mass/Vol]Ordered By: Zhou Fischer on 07-01-2022 Urobilinogen (U) [Mass/Vol] Normal mg/dL Normal [facility] WBC Auto (Bld) [#/Vol]Ordere d By: Zhou Fischer on 07-01-2022 WBC (Bld) [#/Vol] 5.9 10*3/uL 4.1-10.5 [facility] pH Auto test strip (U)Ordere d By: Zhou Fsicher on 07-01-2022 pH (U) 6.5 [pH] 5.0-9.0 [facility] ALLIED HEALTHon 05-15-2022 ALLIED HEALTH HNO ID: [id number] Author: Liss Hutton RT(R) Service: ? Author [...] May 15, 2022 TIME: 8:28 AM Normal [facility] CREATININE BLDon 05-15-2022 Creatinine [Mass/Vol] 0.97 mg/dL Normal 0.73-1.22 [facility] Comment on above: Order Comment: Alex ceron Type: BLOOD SPECIMEN [facility] Address: [address] [place] [address] Performed By: #### C RET1 #### [facility] CLIA [id number] [place] [address] [place] [facility] ESTIMATED GLOMERULAR FILTRATION RATE 83 mL/min/1.73m??? Normal >=60 [facility] Comment on above: Order Comment: Alex ceron Type: BLOOD SPECIMEN [facility] Address: [address] [place] [address] Result Comment: Marsha mated Glomerular Filtration Rate [...] GFR. Performed By: #### C RET1 #### [facility] CLIA [id number] [place] [address] [facility] [address] UROGRAM WO/W IVCONon 11- CT UROGRAM WO/W IVCON * * *Final Report* * * DATE OF EXAM: May 15 2022 8:37AM [facility] 0560 - CT UROGRAM WO/W IVCON [...] Images of the lung bases are clear. Flight Test Data Acquisition Technician (topogram) images: No additional findings. IMPRESSION: NO HYDRONEPHROSIS OR NEPHROLITHIASIS. NO ABNORMALLY ENHANCED RENAL OR BLADDER MASS. DIFFUSE SIGMOID DIVERTICULOSIS AND MILD NONSPECIFIC CIRCUMFERENTIAL RECTOANAL BOWEL WALL THICKENING. SUGGEST CLINICAL CORRELATION AND GI FOLLOW-UP. Writing Center Director: POOL Transcribe Date/Time: May 16 2022 9:28A Dictated by : TATIANA DWYER MD This examination was interpreted and the report reviewed and electronically signed by: TATIANA DWYER MD on May 16 2022 12:36PM EST [id number] CN Normal [facility] URINE CULTUREon 04-23-2022 Bacteria identified Cx Nom (U) No growth (<1,000 CFU/ml) [facility] LIANNE by IFAon 04-05-2022 Antinuclear Antibodies, IFA Positive Abnormal [facility] Comment on above: Result Comment: Nega tive <1:80 Borderline 1:80 Positive >1:80 Performed By: #### A NAIFA #### [facility] [address] [place] [address] Dr. Emily Copeland Centriole Pattern Normal [facility] Comment on above: Performed By: #### A NAIFA #### [facility] [address] [address] [address] Emily Copeland Centromere Pattern Normal [facility] Comment on above: Performed By: #### A NAIFA #### [facility] [address] [address] [address] Emily Copeland Homogeneous Pattern 1:320 Critically high [facility] Comment on above: Result Comment: ICAP nomenclature: AC-1 Performed By: #### A NAIFA #### [facility] [address] [place], [place] [address] Dr. Emily Copeland Midbody Pattern Normal [facility] Comment on above: Performed By: #### A NAIFA #### [facility] [address] [place], [place] [address] Dr. Emily Copeland Note: Comment Normal [facility] Comment on above: Result Comment: For [...] titers Nucleosomes, Histones Drug-induced SLE Speckled Sm, TIMING INSPECTOR, SCL-70, SLE,MCTD,PSS (diffuse form), SS-A/SS-B Sjogrens Nucleolar SCL-70, PM-1/SCL High titers Scleroderma, PM/DM Centromere Centromere PSS (limited form) w/Crest syndrome variable Nuclear Dot [id number] Primary Biliary Cirrhosis Nuclear GP210, Primary Biliary Cirrhosis Membrane kacie A,B,C Performed By: #### A NAIFA #### [facility] [address] [place] [address] Dr. Emily Copeland Nuclear Dot Pattern Normal [facility] Comment on above: Performed By: #### A NAIFA #### [facility] [address] [place] [address] Dr. Emily Copeland Nuclear Membrane Pattern Normal [facility] Comment on above: Performed By: #### A NAIFA #### [facility] [address] [place] [address] Dr. Emily Copeland Nucleolar Pattern Normal [facility] Comment on above: Performed By: #### A NAIFA #### [facility] [address] [place] [address] Dr. Emily Copeland PCNA Pattern Normal [facility] Comment on above: Performed By: #### A NAIFA #### [facility] [address] [place] [address] Dr. Emily Copeland Speckled Pattern Normal [facility] Comment on above: Performed By: #### A NAIFA #### [facility] [address] [place] [address] Dr. Emily Copeland Spindle Apparatus Pattern Normal [facility] Comment on above: Performed By: #### A NAIFA #### [facility] [address] [place] [address] Dr. Emily Copeland ANTISTREPTOLYSIN O AB (ASO)o n 04-03-2022 Antistreptolysin O Ab 98.8 IU/mL Normal 0.0-200.0 [facility] Comment on above: Performed By: #### A SOAB #### [facility] [address] [place] [address] Dr. Emily Copeland CYTOLOGY NON-GYNon 2 Case Report Medical Cytology Report Case: [id number] Authorizing Provider: Nanci Carvajal MD Collected: 04/01/2022 04:04 PM Ordering Location: Urology Received: 04/01/2022 08:21 PM Pathologist: Tomás Andersen MD, PhD Specimen: URINE VOIDED [facility] Clinical History bladder cancer [facility] FINAL DIAGNOSIS A - URINE VOIDED Suspicious for high-grade urothelial carcinoma. [facility] Gross Description A. URINE VOIDED 80 cc clear yellow fluid. ThinPrep prepared. [facility] Performing Lab Technical component, supply assistant screening performed at [facility], [address] [id number] CLIA# [id number] Diagnostic interpretation [facility] [address] [facility] [address] CLIA# [id number] Janitor Caretaker: Reid Monteiro M.D. [facility] RHEUMATOID FACTORon 04-03-20 22 RA Latex Turbid. 18.0 IU/mL Critically high <14.0 [facility] Comment on above: Performed By: #### R F #### [facility] [address] [place] [address] Dr. Emily Copeland CBC AUTO DIFFon 04-02-2022 BASO # 0.0 103/ul Normal 0.0-0.1 [facility] Comment on above: Performed By: #### C BC #### [facility] [address] [place] [address] Dr. Emily Copeland Basophils/100 WBC (Bld) 0.6 % Normal 0.2-2.0 [facility] Comment on above: Performed By: #### C BC #### [facility] [address] [place] [address] Dr. Emily Copeland EO # 0.1 103/ul Normal 0.0-0.7 [facility] Comment on above: Performed By: #### C BC #### [facility] [address] [place] [address] Dr. Emily Copeland Eosinophils/100 WBC (Bld) 2.2 % Normal 0.9-7.0 [facility] Comment on above: Performed By: #### C BC #### [facility] [address] [place] [address] Dr. Emily Copeland Erythrocyte distribution width (RBC) [Ratio] 13.0 % Normal 11.0-15.0 [facility] Comment on above: Performed By: #### C BC #### [facility] [address] [place] [address] Dr. Emily Copeland Hematocrit (Bld) [Volume fraction] 45.1 % Normal 42.0-54.0 [facility] Comment on above: Performed By: #### C BC #### [facility] [address] [place] [address] Dr. Emily Copeland Hemoglobin (Bld) [Mass/Vol] 15.3 g/dL Normal 14.0-18.0 [facility] Comment on above: Performed By: #### C BC #### [facility] [address] [place] [address] Dr. Emily Copeland IG # 0.01 10e3/ul Normal 0.00-0.03 [facility] Comment on above: Performed By: #### C BC #### [facility] [address] [place] [address] Dr. Emily Copeland IG % 0.2 % Normal 0.0-0.5 [facility] Comment on above: Performed By: #### C BC #### [facility] [address] [place] [address] Dr. Emily Copeland LYMPH # 1.8 103/ul Normal 1.2-3.8 [facility] Comment on above: Performed By: #### C BC #### [facility] [address] [place] [address] Dr. Emily Copeland Lymphocytes/100 WBC (Bld) 29.0 % Normal 20.5-60.0 [facility] Comment on above: Performed By: #### C BC #### [facility] [address] [place] [address] Dr. Emily Copeland MANUAL DIFF REQ NO Normal [facility] Comment on above: Performed By: #### C BC #### [facility] [address] [place] [address] Dr. Emily Copeland MCH (RBC) [Entitic mass] 30.1 pg Normal 25.9-34.0 [facility] Comment on above: Performed By: #### C BC #### [facility] [address] [place] [address] Dr. Emily Copeland MCHC (RBC) [Mass/Vol] 33.9 g/dL Normal 29.9-35.2 [facility] Comment on above: Performed By: #### C BC #### [facility] [address] [place] [address] Dr. Emily Copeland MCV (RBC) [Entitic vol] 88.8 fL Normal 80.0-94.0 [facility] Comment on above: Performed By: #### C BC #### [facility] [address] [place] [address] Dr. Emily Copeland MONO # 0.7 103/ul Normal 0.3-0.8 [facility] Comment on above: Performed By: #### C BC #### [facility] [address] [place] [address] Dr. Emily Copeland Monocytes/100 WBC (Bld) 11.5 % Normal 1.7-12.0 [facility] Comment on above: Performed By: #### C BC #### [facility] [address] [place] [address] Dr. Emily Copeland NEUT # 3.6 103/ul Normal 1.4-6.5 [facility] Comment on above: Performed By: #### C BC #### [facility] [address] [place] [address] Dr. Emily Copeland Neutrophils/100 WBC (Bld) 56.5 % Normal 43.0-75.0 [facility] Comment on above: Performed By: #### C BC #### [facility] [address] [place] [address] Dr. Emily Copeland Platelet mean volume (Bld) [Entitic vol] 9.7 fL Normal 9.5-13.5 [facility] Comment on above: Performed By: #### C BC #### [facility] [address] [place] [address] Dr. Emily Copeland PLT 323 103/ul Normal 150-450 [facility] Comment on above: Performed By: #### C BC #### [facility] [address] [place] [address] Dr. Emily Copeland RBC 5.08 106/ul Normal 4.70-6.10 [facility] Comment on above: Performed By: #### C BC #### [facility] [address] [place] [address] Dr. Emily Copeland WBC 6.4 103/ul Normal 4.0-11.0 [facility] Comment on above: Performed By: #### C BC #### [facility] [address] [place] [address] Dr. Emily Copeland CRPon 04-02-2022 CRP [Mass/Vol] mg/L Normal <=1.0 [facility] Comment on above: Performed By: #### C RP, CMP, URIC #### [facility] [address] [place] [address] Dr. Emily Copeland PROF 14(COMP METB)on 022 Albumin [Mass/Vol] 4.0 g/dL Normal 3.4-5.0 [facility] Comment on above: Performed By: #### C RP, CMP, URIC #### [facility] [address] [address] [address] Emily Copeland Albumin/Globulin [Mass ratio] 1.2 {ratio} Normal [facility] Comment on above: Performed By: #### C RP, CMP, URIC #### [facility] [address] [address] [address] Emily Copeland ALP [Catalytic activity/Vol] 79 U/L Normal 46-116 [facility] Comment on above: Performed By: #### C RP, CMP, URIC #### [facility] [address] [place] [address] Dr. Emily Copeland ALT [Catalytic activity/Vol] 37 U/L Normal 16-63 [facility] Comment on above: Performed By: #### C RP, CMP, URIC #### [facility] [address] [address] [address] Emily Copeland Anion gap [Moles/Vol] 10.0 mmol/L Normal [facility] Comment on above: Performed By: #### C RP, CMP, URIC #### [facility] [address] [place] [address] Dr. Emily Copeland AST [Catalytic activity/Vol] 22 U/L Normal 15-37 [facility] Comment on above: Performed By: #### C RP, CMP, URIC #### [facility] [address] [address] [address] Emily Copeland Bilirubin [Mass/Vol] 0.6 mg/dL Normal 0.2-1.0 [facility] Comment on above: Performed By: #### C RP, CMP, URIC #### [facility] [address] [place] [address] Dr. Emily Copeland Calcium [Mass/Vol] 9.4 mg/dL Normal 8.5-10.1 [facility] Comment on above: Performed By: #### C RP, CMP, URIC #### [facility] [address] [place] [address] Dr. Emily Copeland Chloride [Moles/Vol] 103 mmol/L Normal 98-107 [facility] Comment on above: Performed By: #### C RP, CMP, URIC #### [facility] [address] [address] [address] Emily Copeland CO2 [Moles/Vol] 29.3 mmol/L Normal 21.0-32.0 [facility] Comment on above: Performed By: #### C RP, CMP, URIC #### [facility] [address] [address] [address] Emily Copeland Creatinine [Mass/Vol] 0.94 mg/dL Normal 0.70-1.30 [facility] Comment on above: Performed By: #### C RP, CMP, URIC #### [facility] [address] [place] [address] Dr. Emily Copeland EGFR-AF NIUEAN >60 Normal >=60 [facility] Comment on above: Performed By: #### C RP, CMP, URIC #### [facility] [address] [place] [address] Dr. Emily Copeland EGFR-NON AF NIUEAN >60 Normal >=60 [facility] Comment on above: Performed By: #### C RP, CMP, URIC #### [facility] [address] [place] [address] Dr. Emily Copeland Globulin (S) [Mass/Vol] 3.4 g/dL Normal [facility] Comment on above: Performed By: #### C RP, CMP, URIC #### [facility] [address] [place] [address] Dr. Emily Copeland Glucose [Mass/Vol] 98 mg/dL Normal 74-106 [facility] Comment on above: Performed By: #### C RP, CMP, URIC #### [facility] [address] [place] [address] Dr. Emily Copeland Potassium [Moles/Vol] 4.3 mmol/L Normal 3.5-5.1 [facility] Comment on above: Performed By: #### C RP, CMP, URIC #### [facility] [address] [place], [place] [id number] Dr. Emily Copeland Protein [Mass/Vol] 7.4 g/dL Normal 6.4-8.2 [facility] Comment on above: Performed By: #### C RP, CMP, URIC #### [facility] [address] [address] [address] Emily Copeland Sodium [Moles/Vol] 138 mmol/L Normal 136-145 [facility] Comment on above: Performed By: #### C RP, CMP, URIC #### [facility] [address] [address] [address] Emily Copeland Urea nitrogen [Mass/Vol] 19.0 mg/dL Critically high 7.0-18.0 [facility] Comment on above: Performed By: #### C RP, CMP, URIC #### [facility] [address] [address] [address] Emliy Copeland Urea nitrogen/Creatinine [Mass ratio] 20.2 mg/mg Normal [facility] Comment on above: Performed By: #### C RP, CMP, URIC #### [facility] [address] [address] [address] Emily Copeland URIC ACID SERUMon 04-02-2022 Urate [Mass/Vol] 5.2 mg/dL Normal 3.5-7.2 [facility] Comment on above: Performed By: #### C RP, CMP, URIC #### [facility] [address] [address] [address] Emily Copeland UA DIP, URINE (POC)on 2021 BILIRUBIN UA (POCT) Negative Negative [facility] CLARITY UA (POCT) Clear [facility] COLOR UA (POCT) Yellow [facility] GLUCOSE UA (POCT) Negative Negative mg/dL [facility] HEMOGLOBIN/BLOOD UA (POCT) Negative Negative [facility] KETONE UA (POCT) Negative Negative mg/dL [facility] LEUKOCYTES UA (POCT) Negative Negative [facility] NITRITE UA (POCT) Negative Negative [facility] PH UA (POCT) 6.0 4.5 - 8.0 [facility] Protein Ql (U) Negative Negative mg/dL [facility] SPECIFIC GRAVITY UA (POCT) 1.015 1.005 - 1.030 [facility] UROBILINOGEN UA (POCT) 0.2 E.U./dL [place] E.U./dL [facility] COVID-19, Rapidon 11-11-2021 SARS-CoV-2 (COVID-19) RNA BEN+probe Ql (Unsp spec) Not detected Not Detected [facility] Comment on above: Rapid NAAT: The [...] management decisions. Fact sheet for Healthcare Providers: https://www.fda.gov/media/408690/download Fact sheet for Patients: https://www.fda.gov/media/867513/download Methodology: Isothermal Nucleic Acid Amplification Specimen Description .NASOPHARYNGEAL SWAB [facility] Rapid Influenza A/B Antigens on 11-11-2021 Flu A Antigen Negative NEGATIVE [facility] Comment on above: for Influenza A Anti gen Flu B Antigen Negative NEGATIVE [facility] Comment on above: for Influenza B Anti gen. [facility] XR HIP 2-3 VW W PELVIS RIGHT on 06-13-2021 No change in the lumbar spine fusion and degenerative changes. Anatomically aligned right total hip prosthesis. PN RIS CONSOLIDATED EXAM: XR LUMBAR SPINE (MIN 4 VIEWS), XR HIP 2-3 VW W PELVIS RIGHT HISTORY: M25.551, low back pain, right hip pain. COMPARISON: Lumbar spine 05/14/2020, [facility] CT abdomen and pelvis 03/22/2021. TECHNIQUE: 5 [...] hardware complication. Moderate degenerative change left hip. [facility] Roverto Coronel Jr., MD - 06/13/2021 EXAM: XR LUMBAR SPINE (MIN 4 VIEWS), XR HIP 2-3 VW W PELVIS RIGHT HISTORY: M25.551, low back pain, right hip pain. COMPARISON: Lumbar spine 05/14/2020, [facility] CT abdomen and pelvis 03/22/2021. TECHNIQUE: 5 [...] changes. Anatomically aligned right total hip prosthesis. [employer] Work Phone: Radiology Study observation (narrative) [employer] Work Phone: XR HIP 2-3 VW W PELVIS RIGHT Ordered By: Roverto Fletcher on 06-13-2021 [employer] Work Phone: Epidural Injectionon 021 Jose Francisco Villalpando MD 08/15/2020 11:13 AM Epidural Injection Performed by: Jose Francisco Villalpando MD Authorized by: Jose Francisco Villalpando MD Medications: 120 mg triamcinolone acetonide 40 mg/mL Anesthetic used: Lidocaine 1% [facility] XR Lumbar Spine Standard wit h Flex/Ext 4+ Viewson 05-14-2020 INR Coag (Bld) [Relative time] Moderate degenerative changes 4.5 mm anterolisthesis L4 in relation L5 with mild dynamic instability identified during extension Workstation ID: [id number] [facility] EXAMINATION: XR LUMBAR SPINE STANDARD WITH FLEX/EXT [...] and reduces to 2 mm with extension. Zhdw-fg-mteqgzpr degenerative spondylosis and facet osteoarthropathy. DISC SPACES: Multilevel disc space narrowing. Near disc collapse with endplate sclerosis L2-L3. Intervertebral spacer L5-S1 PARASPINOUS:No paraspinous abnormality is seen. OTHER: Negative. [facility] Interface, Rad In [facility] Speech[facility] - 05/14/2020 3:31 PM EST EXAMINATION: [...] and reduces to 2 mm with extension. Qmqr-jr-gbommbwq degenerative spondylosis and facet osteoarthropathy. DISC SPACES: Multilevel disc space narrowing. Near disc collapse with endplate sclerosis L2-L3. Intervertebral spacer L5-S1 PARASPINOUS:No paraspinous abnormality is seen. OTHER: Negative. IMPRESSION: Moderate degenerative changes 4.5 mm anterolisthesis L4 in relation L5 with mild dynamic instability identified during extension Workstation ID: [id number] [facility] MR LUMBAR SPINE WITHOUT CONT RASTon 05-08-2020 1. Postsurgical changes from L4-L5 fusion. 2. Focal L3-L4 left paracentral/foramina l disc herniation with compression of the traversing and exiting nerve roots. 3. Moderate to severe degenerative disease throughout the lumbar spine as described above. Workstation ID: [id number] [facility] EXAMINATION: MRI lumbar spine without contrast HISTORY: [...] caliber and signal intensity. There are 5 hey-cya-hwzuspg lumbar vertebrae. There is normal lumbar lordosis [...] stenosis secondary to osteophytes and facet arthropathy. [facility] Interface, Rad In [employer] - 05/08/2020 11:02 [...] caliber and signal intensity. There are 5 vck-jwa-wqcuimh lumbar vertebrae. There is normal lumbar lordosis [...] spine as described above. Workstation ID: [id number] [facility] XR Lumbar Spine 2-3 Views (S tandard)on 02-07-2020 Postoperative changes of posterior fixation at L5-S1, intact. No acute fracture. Stable grade 1 anterolisthesis of L4 on L5. Multilevel degenerative changes as detailed in the body of the report, grossly stable from 10/31/2019. [employer]/lab Workstation ID: [id number] [facility] EXAMINATION: XR LUMBAR SPINE 2-3 VIEWS (STANDARD) [...] Vertebral body heights are maintained. There is dqrpoeph-us-yrhbuy degenerative disc disease at L2-L3 as well as L1-L2 which remains stable. There is mild degenerative disc disease at the L3-L4 and L4-L5. No destructive osseous lesion. Imaged portion of the right hip arthroplasty are in near anatomic alignment. Degenerative changes of the left hip are noted. [facility] Interface, Rad In [employer] - 02/07/2020 [...] Vertebral body heights are maintained. There is lidrqpkj-pu-lsusqx degenerative disc disease at L2-L3 as well [...] of the report, grossly stable from 10/31/2019. [employer]/lab Workstation ID: [id number] [facility] Lab Reportson 12-08-2019 Lab Reports [id number] Normal [facility] Vital Signs Date Time Vital Sign Value Performing Clinician Facility 02-13-2025 11:46-0400 Body height 198.1 cm Zeinab Cait DO Work Phone: [facility] 02-13-2025 11:46-0400 Body mass index (BMI) [Ratio] 22.42 kg/m2 Zeinab Friedmanos DO Work Phone: [facility] 02-13-2025 11:46-0400 Body weight 88 kg Zeinab Chavira DO Work Phone: [facility] 01-13-2025 08:36-0400 Body temperature 98.4 [degF] Casper Ospina MD Work Phone: [facility] 01-13-2025 08:36-0400 Diastolic blood pressure 69 mm[Hg] Casper Ospina MD Work Phone: [facility] 01-13-2025 08:36-0400 Heart rate 94 /min Casper Ospina MD Work Phone: [facility] 01-13-2025 08:36-0400 Respiratory rate 16 /min Casper Ospina MD Work Phone: [facility] 01-13-2025 08:36-0400 SaO2% (BldA) [Mass fraction] 93 % Casper Ospina MD Work Phone: [facility] [employer] 01-13-2025 08:36-0400 Systolic blood pressure 114 mm[Hg] Casper Ospina MD Work Phone: [facility] [employer] 01-10-2025 09:45-0400 Body height 182.9 cm Casper Ospina MD Work Phone: [facility] [employer] 01-10-2025 09:45-0400 Body mass index (BMI) [Ratio] 27.07 kg/m2 Casper Ospina MD Work Phone: [facility] [employer] 01-10-2025 09:45-0400 Body weight 90.54 kg Casper Ospina MD Work Phone: [facility] [employer] 09-07-2024 11:24-0400 Diastolic blood pressure 65 mm[Hg] [facility] 1 [facility] [employer] 09-07-2024 11:24-0400 Heart rate 69 /min [facility] 1 [facility] [employer] 09-07-2024 11:24-0400 Systolic blood pressure 109 mm[Hg] [facility] 1 [facility] [employer] 10-20-2023 12:26-0400 Body height 182.9 cm Sabina Red DO Work Phone: [facility] 10-20-2023 12:26-0400 Body mass index (BMI) [Ratio] 27.53 kg/m2 Sabina Red DO Work Phone: [facility] 10-20-2023 12:26-0400 Body temperature 98.29 [degF] Sabina Red DO Work Phone: [facility] 10-20-2023 12:26-0400 Body weight 92.08 kg Sabina Red DO Work Phone: [facility] 10-20-2023 12:26-0400 Diastolic blood pressure 75 mm[Hg] Sabina Red DO Work Phone: [facility] 10-20-2023 12:26-0400 Heart rate 60 /min Sabina Red DO Work Phone: [facility] 10-20-2023 12:26-0400 Respiratory rate 17 /min Sabina Red DO Work Phone: [facility] 10-20-2023 12:26-0400 SaO2% (BldA) [Mass fraction] 95 % Sabina Red DO Work Phone: [facility] 10-20-2023 12:26-0400 Systolic blood pressure 118 mm[Hg] Sabina Red DO Work Phone: [facility] 07-21-2023 15:15-0500 Body height 182.88 cm Mundo Laurence Other [employer] Other 07-21-2023 15:15-0500 Body mass index (BMI) [Ratio] 28.21 kg/m2 Mundo Laurence Other [employer] Other 07-21-2023 15:15-0500 Body weight 94.35 kg Mundo Laurence Other [employer] Other 05-06-2023 14:03-0500 Diastolic blood pressure 75 mm[Hg] PHYSICIAN NO [facility] 05-06-2023 14:03-0500 Heart rate 71 /min PHYSICIAN NO [facility] 05-06-2023 14:03-0500 Respiratory rate 18 /min PHYSICIAN NO [facility] 05-06-2023 14:03-0500 SaO2% (BldA) [Mass fraction] 95 % PHYSICIAN NO [facility] 05-06-2023 14:03-0500 Systolic blood pressure 117 mm[Hg] PHYSICIAN NO [facility] 05-06-2023 12:13-0500 Body height 182.88 cm PHYSICIAN NO [facility] 05-06-2023 12:13-0500 Body temperature 97.6 [degF] PHYSICIAN NO [facility] 05-06-2023 12:13-0500 Body weight 94.34 kg PHYSICIAN NO [facility] 05-21-2022 10:45-0500 Body height 182.88 cm Mundo Dang Other [employer] Other 05-21-2022 10:45-0500 Body mass index (BMI) [Ratio] 28.21 kg/m2 Mundo Dang Other [employer] Other 05-21-2022 10:45-0500 Body weight 94.35 kg Mundo Dang Other [employer] Other 05-21-2022 10:45-0500 Diastolic blood pressure 80 mm[Hg] Mundo Dang Other [employer] Other 05-21-2022 10:45-0500 Systolic blood pressure 119 mm[Hg] Mundo Dang Other [employer] Other 12-04-2021 14:45-0400 Body height 182.88 cm Mundo Dang Other [employer] Other 12-04-2021 14:45-0400 Body mass index (BMI) [Ratio] 29.02 kg/m2 Mundo Dang Other [employer] Other 12-04-2021 14:45-0400 Body weight 97.07 kg Mundo Dang Other [employer] Other 11-27-2020 11:07-0400 Body height 182.9 cm Jose Francisco Villalpando MD Work Phone: [facility] 11-27-2020 11:07-0400 Body mass index (BMI) [Ratio] 29.84 kg/m2 Jose Francisco Villalpando MD Work Phone: [facility] 11-27-2020 11:07-0400 Body weight 99.79 kg Jose Francisco Villalpando MD Work Phone: [facility] 11-27-2020 11:07-0400 Diastolic blood pressure 66 mm[Hg] Jose Francisco Villalpando MD Work Phone: [facility] 11-27-2020 11:07-0400 Heart rate 85 /min Jose Francisco Villalpando MD Work Phone: [facility] 11-27-2020 11:07-0400 Systolic blood pressure 151 mm[Hg] Jose Francisco Villalpando MD Work Phone: [facility] 08-15-2020 10:58-0500 BMI (Body Mass Index) 29.84 kg/m2 [facility] 08-15-2020 10:58-0500 Body weight 99.79 kg [facility] 08-15-2020 10:58-0500 Height 182.9 cm [facility] 05-14-2020 10:39-0500 BMI (Body Mass Index) 29.84 kg/m2 [facility] 05-14-2020 10:39-0500 Body weight 99.79 kg [facility] 05-14-2020 10:39-0500 BP Diastolic 74 mm[Hg] [facility] 05-14-2020 10:39-0500 BP Systolic 122 mm[Hg] [facility] 05-14-2020 10:39-0500 Height 182.9 cm [facility] 05-14-2020 10:39-0500 Pulse (Heart Rate) 66 /min Jose Francisco [facility] 02-07-2020 14:49-0400 BMI (Body Mass Index) 29.02 kg/m2 [facility] 02-07-2020 14:49-0400 Body weight 97.07 kg Jose Francisco [facility] 02-07-2020 14:49-0400 Height 182.9 cm [facility] Encounters Encounter Date Encounter Type Care Provider Facility Start: 03-09-2025 End: 03-09-2025 Patient encounter procedure Charla Quintanilla Dashawn [facility] -[facility] [address] Work Phone: Start: 03-09-2025 End: 03-09-2025 ambulatory Danette Muniz [facility]C Work Phone: [facility] Work Phone: Start: 02-13-2025 End: 02-13-2025 ambulatory ZEINAB Limon POCOS Not Available Start: 02-13-2025 End: 02-13-2025 Patient encounter procedure Zeinab Limon Pocos DO Work Phone: [facility] Comment on above: History of right hip replacement (Primary Dx); Weakness of right lower extremity Start: 02-13-2025 End: 02-13-2025 ambulatory ZEINAB Limon POCOS Not Available Start: 01-10-2025 End: 01-13-2025 Evaluation and management of inpatient Casper Ospina MD Work Phone: [facility] Start: 01-03-2025 End: 01-03-2025 ambulatory Danette Muniz [facility]C Work Phone: [facility] Work Phone: Start: 01-03-2025 End: 01-03-2025 Departed Referred Danette Muniz FACILITY SPECIALIST -LAB [facility] Start: 12-29-2024 End: 12-29-2024 ambulatory [facility] Start: 12-29-2024 End: 12-29-2024 Encounter for other preprocedural examination [facility] Start: 12-20-2024 End: 12-21-2024 Clinisync Result Encounter Generic External Data Provider [facility] External Department Unsolicited Start: 12-20-2024 End: 12-21-2024 Clinisync Result Encounter Generic External Data Provider [facility] External Department Unsolicited Start: 12-20-2024 End: 12-20-2024 Patient encounter procedure Nanci Carvajal MD Work Phone: Urology Comment on above: Encounter for follow -up surveillance of bladder cancer (Primary Dx); History of bladder cancer Start: 12-20-2024 End: 12-20-2024 ambulatory [facility] Facility:[facility] Start: 12-13-2024 End: 12-13-2024 Naeem Palma MD Work Phone: [facility] Start: 12-13-2024 End: 12-13-2024 Naeem Palma MD Work Phone: [facility] Start: 12-13-2024 End: 12-13-2024 Patient encounter procedure Cruz Palma MD Work Phone: [facility] Comment on above: Actinic keratosis (P rimary Dx) Start: 12-13-2024 End: 12-13-2024 ambulatory CRUZ A PETITTI Not Available Start: 11-08-2024 End: 11-08-2024 Naeem Palma MD Work Phone: [facility] Start: 11-08-2024 End: 11-08-2024 Naeem Palma MD Work Phone: [facility] Start: 11-08-2024 End: 11-08-2024 Office outpatient new 30 minutes Cruz Palma MD Work Phone: [facility] Comment on above: Other atopic dermati tis (Primary Dx); Actinic keratosis; Rash and other nonspecific skin eruption Start: 11-08-2024 End: 11-08-2024 ambulatory CRUZ A PETITTI Not Available Start: 10-05-2024 End: 10-05-2024 Patient encounter procedure Danette GAYLE Work Phone: [facility] [address] Work Phone: Start: 10-05-2024 End: 10-05-2024 ambulatory Danette GAYLE Work Phone: [facility] Work Phone: Start: 09-07-2024 End: 09-09-2024 ambulatory [facility] Start: 09-07-2024 End: 09-09-2024 Subsequent hospital visit by physician [facility] Nuclear Room [facility] Comment on above: Arrived Chest pain, unspecif ied type; Intermittent chest pain Start: 08-30-2024 End: 08-30-2024 Patient encounter procedure Danette Muniz [facility]C Work Phone: [facility] [address] Work Phone: Start: 08-30-2024 End: 08-30-2024 ambulatory Danette Muniz NP-C Work Phone: [facility] Work Phone: Start: 08-25-2024 End: 08-27-2024 ambulatory DANETTE MUNIZ [facility] Start: 08-25-2024 End: 08-27-2024 Subsequent hospital visit by physician [facility] Stress Lab 1 [facility]In[facility] Comment on above: Intermittent chest p ain Start: 08-18-2024 End: 08-18-2024 ambulatory [facility] Start: 06-07-2024 End: 06-10-2024 Clinisync Result [...] bladder cancer Start: 06-07-2024 End: 06-07-2024 ambulatory NANCI CARVAJAL Facility:[facility] Start: 05-02-2024 End: 05-02-2024 Patient encounter procedure [facility] Danette Muniz Work Phone: [facility] [address] Work Phone: Start: 05-02-2024 End: 05-02-2024 ambulatory [facility] Danette Beatris Cristy Work Phone: [facility] Work Phone: Start: 03-16-2024 End: 03-16-2024 ambulatory [facility] Danette Beatris Cristy Work Phone: [facility] Work Phone: Start: 03-16-2024 End: 03-16-2024 Patient encounter procedure [facility] Danette Cristy Work Phone: [facility] [address] Work Phone: Start: 12-28-2023 End: 12-28-2023 ambulatory [facility] Danette Beatris Cristy Work Phone: [facility] Work Phone: Start: 12-28-2023 End: 12-28-2023 Patient encounter procedure [facility] Danette Cristy Work Phone: [facility] [address] Work Phone: Start: 12-01-2023 End: 12-01-2023 Patient encounter procedure Nanci Carvajal MD Work Phone: Urology Comment on above: Encounter for follow -up surveillance of bladder cancer (Primary Dx); History of bladder cancer Start: 10-29-2023 End: 10-29-2023 ambulatory [facility] Danette Beatris Cristy Work Phone: [facility] Work Phone: Start: 10-29-2023 End: 10-29-2023 Patient encounter procedure [facility] Danette Cristy Work Phone: [facility] [address] Work Phone: Start: 10-20-2023 End: 10-20-2023 ambulatory ISAURO POE [facility] Start: 10-20-2023 End: 10-20-2023 Encounter for other preprocedural examination SABINA RED [facility] Ambulatory Start: 10-20-2023 End: 10-20-2023 Office outpatient new 30 minutes Sabina Red DO Work Phone: [facility] Comment on above: Pre-operative examin ation (Primary Dx); Traction detachment of right retina; Rheumatoid arthritis, involving unspecified site, unspecified whether rheumatoid factor present (HCC); Essential (primary) hypertension; Gastroesophageal reflux disease, unspecified whether esophagitis present; JOHNATHON (obstructive sleep apnea) Start: 10-20-2023 End: 10-20-2023 Preprocedural examination done Sabina Red DO Work Phone: [facility] Work Phone: Start: 07-21-2023 End: 07-21-2023 Patient encounter procedure [facility] Danette Muniz Work Phone: [facility] [address] Work Phone: Start: 07-21-2023 End: 07-21-2023 ambulatory [facility] Danette Muniz Work Phone: [facility] Work Phone: Start: 07-21-2023 Office [...] (HCC) [C67.9] Start: 05-25-2023 End: 05-25-2023 ambulatory [facility] Danette Muniz Work Phone: [facility] Work Phone: Start: 05-25-2023 End: 05-25-2023 Patient encounter procedure [facility]C Danette Muniz Work Phone: [facility] [address] Work Phone: Start: 05-06-2023 End: 05-06-2023 Admission to same day surgery center PHYSICIAN NO [facility] Work Phone: Start: 05-06-2023 End: 05-06-2023 ambulatory PHYSICIAN NO [facility] Work Phone: Start: 04-17-2023 End: 04-17-2023 ambulatory Mundo Dang Other [employer] Other Start: 04-17-2023 Telephone encounter Mundo Vazquez [facility] Start: 03-17-2023 End: 03-17-2023 ambulatory PHYSICIAN NO [facility] Work Phone: Start: 03-17-2023 End: 03-17-2023 Patient encounter procedure PHYSICIAN NO [facility] [address] Work Phone: Start: 02-24-2023 End: 02-24-2023 ambulatory PHYSICIAN NO [facility] Work Phone: Start: 02-24-2023 End: 02-24-2023 Patient encounter procedure PHYSICIAN NO [facility] [address] Work Phone: Start: 01-26-2023 End: 01-26-2023 ambulatory PHYSICIAN NO [facility] Work Phone: Start: 01-26-2023 End: 01-26-2023 Patient encounter procedure PHYSICIAN NO [facility] [address] Work Phone: Start: 01-12-2023 End: 01-12-2023 ambulatory PHYSICIAN NO [facility] Work Phone: Start: 01-12-2023 End: 01-12-2023 Patient encounter procedure PHYSICIAN NO [facility] [address] Work Phone: Start: 12-23-2022 End: 12-23-2022 Patient encounter procedure PHYSICIAN NO [facility] [address] Work Phone: Start: 12-16-2022 End: 12-16-2022 ambulatory PHYSICIAN NO [facility] Work Phone: Start: 12-16-2022 End: 12-16-2022 Patient encounter procedure PHYSICIAN NO [facility] [address] Work Phone: Start: 11-22-2022 End: 11-23-2022 ambulatory DANETTE MUNIZ Facility:[facility] Start: 11-17-2022 End: 11-18-2022 ambulatory DANETTE MUNIZ Facility:[facility] Start: 10-21-2022 End: 10-21-2022 Patient encounter procedure Nanci Carvajal MD Work Phone: Urology Comment on above: Encounter for follow -up surveillance of bladder cancer (Primary Dx); History of bladder cancer Start: 07-16-2022 Telephone encounter Nanci santos MD Work Phone: Urology Comment on above: Results Start: 07-08-2022 End: 07-08-2022 Patient encounter procedure Nanci Carvajal MD Work Phone: Urology Comment on above: Encounter for follow -up surveillance of bladder cancer (Primary Dx) Start: 07-01-2022 End: 07-01-2022 ambulatory MD Zhou Fischer Work Phone: [facility] Work Phone: Start: 07-01-2022 End: 07-01-2022 Patient encounter procedure MD Zhou Fischer Work Phone: [facility] [address] Work Phone: Start: 06-30-2022 End: 06-30-2022 ambulatory DANETTE MUNIZ Facility:[facility] Start: 05-21-2022 End: 05-21-2022 ambulatory Mundo Dang Other [employer] Other Start: 05-21-2022 Office outpatient vi sit 15 minutes Mundo Dang [facility] Gastroenterology Start: 05-15-2022 End: 05-16-2022 ambulatory NANCI CAR[facility]JAL [facility] Start: 05-15-2022 End: 05-15-2022 Subsequent hospital visit by physician [facility] ([facility]) Work Phone: [facility] Radiology CT Scan Comment on above: Malignant neoplasm o f urinary bladder, unspecified site (HCC) [C67.9] Start: 05-02-2022 Telephone encounter Nanci santos MD Work Phone: Urology Comment on above: [employer] Start: 04-21-2022 Telephone encounter Hallie Leonard [facility] & Comment on above: Returning Patient's Call Start: 04-02-2022 End: 04-03-2022 ambulatory DANETTERUDY SANCHEZMER Facility: Start: 04-01-2022 End: 04-01-2022 Patient encounter procedure Nanci Carvajal MD Work Phone: Urology Comment on above: History of bladder c ancer (Primary Dx); Malignant neoplasm of urinary bladder, unspecified site (HCC) Start: 12-04-2021 End: 12-04-2021 ambulatory Mundo Dang Other [facility] [employer] Other Start: 12-04-2021 Office outpatient ne w 45 minutes Mundo Dang [facility] Gastroenterology Start: 11-11-2021 End: 11-11-2021 Subsequent hospital visit by physician [facility] Covid19 Pat Screening Schedule MWHZ PRE ADMIT [...] MD Work Phone: Urology Comment on above: [employer] Start: 06-13-2021 End: 06-15-2021 Subsequent hospital visit by physician Alexandria Casanova [facility] Radiology Comment on above: Right hip pain Start: 11-27-2020 End: 11-27-2020 Office outpatient visit 15 minutes Jose Francisco Villalpando MD Work Phone: [facility] Comment on above: Spinal stenosis of l umbar region without neurogenic claudication (Primary Dx); Lumbar degenerative disc disease Start: 11-09-2020 End: 11-09-2020 Documentation procedure Darlene Calderon LPN [facility] Start: 08-15-2020 End: 08-15-2020 Clinical Support Jose Francisco Villalpando Work Phone: [facility] Comment on above: Spondylolisthesis of lumbar region (Primary Dx); Spinal stenosis of lumbar region without neurogenic claudication; Lumbar degenerative disc disease Start: 08-06-2020 End: 08-06-2020 Orders Only Martharona Casey Work Phone: [facility] Start: 05-15-2020 End: 05-15-2020 Clinical Support Jose Francisco Villalpando Work Phone: [facility] Comment on above: Spondylolisthesis of lumbar region (Primary Dx); Lumbar degenerative disc disease Start: 05-14-2020 End: 05-14-2020 Documentation procedure Darlene Calderon [facility] Start: 05-14-2020 End: 05-14-2020 Subsequent hospital visit by physician Jose Francisco Villalpando Work Phone: [facility] Comment on above: Pain Start: 05-14-2020 End: 05-14-2020 Office outpatient visit 15 minutes Jose Francisco Villalpando Work Phone: [facility] Comment on above: Spondylolisthesis of lumbar region (Primary Dx); Lumbar degenerative disc disease Start: 05-08-2020 End: 05-08-2020 Subsequent hospital visit by physician Jose Francisco Villalpando Work Phone: [facility] Comment on above: Spondylolisthesis of [...] by physician Jose Francisco Villalpando Work Phone: [facility] Comment on above: Pain Start: 02-07-2020 End: 02-07-2020 Office outpatient new 30 minutes Isauro Poe Work Phone: [facility] Comment on above: Spondylolisthesis of lumbar region (Primary Dx); Back pain, unspecified back location, unspecified back pain laterality, unspecified chronicity Procedures Date Procedure Procedure Detail Performing Clinician Start: 02-13-2025 Radex hip unilateral with pelvis 2-3 views Zeinab Chavira DO Work Phone: Start: 01-13-2025 Anion gap [Moles/Vol] Petey Diglio PA Work Phone: Start: 01-13-2025 Basic metabolic panel calcium total August is Diglio PA Work Phone: Start: 01-13-2025 GLOMERULAR FILTRATION RATE, ESTIMATED Petey Diglio PA Work Phone: Start: 01-12-2025 Anion gap [Moles/Vol] Petey Diglio PA Work Phone: Start: 01-12-2025 Basic metabolic panel calcium total August is Diglio PA Work Phone: Start: 01-12-2025 GLOMERULAR FILTRATION RATE, ESTIMATED Petey Diglio PA Work Phone: Start: 01-11-2025 Anion gap [Moles/Vol] Petey Diglio PA Work Phone: Start: 01-11-2025 Basic metabolic panel calcium total August is Diglio PA Work Phone: Start: 01-11-2025 GLOMERULAR FILTRATION RATE, ESTIMATED Petey Diglio PA Work Phone: Start: 01-10-2025 Radex spine 1 view specify level Casper Ospina MD Work Phone: Start: 01-10-2025 End: 01-10-2025 Arthrodesis posterior/posterolateral lumbar Casper Ospina MD Work Phone: Start: 01-10-2025 End: 01-10-2025 Autograft spine surgery local from same incision Casper Ospina MD Work Phone: Start: 01-10-2025 End: 01-10-2025 Beatty facetectomy & foramotomy 1 segment lumbar Casper Ospina MD Work Phone: Start: 01-10-2025 Blood typing serologic abo Petey Diglio PA Work Phone: Start: 01-03-2025 Urine culture Danette Muniz ENVIRONMENTAL HEALTH SANITARIAN-C Work Phone: Start: 12-20-2024 [facility]TOLOGY NON-STRAIGHTEDGE WORKER Generic External Data Provider Start: 12-13-2024 CRYOTHERAPY SKIN LESION Cruz Palma MD Work Phone: Start: 11-08-2024 CRYOTHERAPY SKIN LESION Cruz Palma MD Work Phone: Start: 09-07-2024 Myocardial spect multiple studies Danette Muniz PERIOPERATIVE MANAGER - FACILITY SPECIALIST Work Phone: Start: 08-30-2024 X-ray of right foot Danette Muniz ENVIRONMENTAL HEALTH SANITARIAN-C Work Phone: Start: 06-07-2024 [facility] CYTOLOGY NON-STRAIGHTEDGE WORKER Generic External Data Provider Start: 12-01-2023 Urnls [...] Start: 11-11-2021 COVID-19, RAPID Danette S Barb PERIOPERATIVE MANAGER - FACILITY SPECIALIST Work Phone: Start: 11-11-2021 Iaadiadoo influenza Danette S Barb PERIOPERATIVE MANAGER - FACILITY SPECIALIST Work Phone: Start: 08-14-2021 Colonoscopy Cruz Palma MD Work Phone: Start: 06-13-2021 Radex hip unilateral with pelvis 2-3 views Zeinab Chavira DO Work Phone: Start: 08-15-2020 Inject spine lumbar/sacral Jose Francisco Villalpando Work Phone: Start: 05-14-2020 Radex spine lumbosacral minimum 4 views Jose Francisco Villalpando Work Phone: Start: 05-08-2020 MRI of lumbar spine without contrast Jose Francisco Villalpando Work Phone: Start: 02-07-2020 Radex spine lumbosacral 2/3 views Jeronimomadiha jas Villalpando Work Phone: Plan of Treatment Date Care Activity Detail Author Start: 08-14-2031 Screening for malign ant neoplasm of colon [facility] Start: 02-12-2026 End: 02-12-2026 Patient encounter procedure 02/12/2026 10:00 AM EDT Office Visit [facility] [address] [facility] [place] [address] Zeinab Chavira DO [address] [place] [address] [facility] Start: 12-13-2025 End: 12-13-2025 Patient encounter procedure [facility] Start: 06-21-2025 End: 01-19-2026 CT Kidney WO and W contrast IV CT UROGRAM WO/W IVCON Radiology Routine History of bladder cancer Expected: 06/21/2025 (Approximate), Expires: 01/19/2026 [facility] Work Phone: Comment on above: Expected: 06/21/2025 (Approximate), Expires: 01/19/2026 Start: 02-27-2025 Influenza vaccination [facility] Start: 01-27-2025 Influenza vaccination Flu vaccine (# 1) [facility] Start: 01-25-2025 End: 01-25-2025 Patient encounter procedure 01/25/2025 10:00 AM EDT Office Visit [facility] [address] [place] [phone] Zeinab Chavira DO [address] [place] [address] [facility] Start: 01-03-2025 Bacteria identified in Urine by Culture Urine Culture [facility] Start: 01-03-2025 Urine culture [facility] Start: 12-20-2024 End: 03-21-2025 Creatinine and Glomerular filtration rate.predicted panel - Serum, Plasma or Blood CREATININE BLD Lab Routine History of bladder cancer Expected: 12/20/2024, Expires: 03/21/2025 [facility] Comment on above: Expected: 12/20/2024 , Expires: 03/21/2025 Start: 12-13-2024 End: 12-13-2024 Patient encounter procedure 12/13/2024 11:05 AM EDT Office Visit [facility] [address] [place] [phone] Cruz Palma MD [address] [place], [place] [id number] Arrived [facility] Comment on above: Arrived Start: 12-06-2024 End: 07-07-2025 CT Kidney WO and W contrast IV CT UROGRAM WO/W IVCON Radiology Routine History of bladder cancer Expected: 12/06/2024 (Approximate), Expires: 07/07/2025 [facility] Work Phone: Comment on above: Expected: 12/06/2024 (Approximate), Expires: 07/07/2025 Start: 12-06-2024 End: 12-06-2024 Patient encounter procedure 12/06/2024 10:55 AM EDT Office Visit [facility] [address] [place] [phone] Cruz Palma MD [address] [place] [address] [facility] Start: 11-08-2024 End: 11-08-2024 Patient encounter procedure 11/08/2024 10:15 AM EDT Office Visit [facility] [address] [place] [address] Cruz Palma MD [address] [place] [address] Arrived [facility] Comment on above: Arrived Start: 06-29-2024 Advance Directive Discussion Advance Directive Discussion [facility] Start: 06-07-2024 End: 09-06-2024 CREATININE BLD CREATININE BLD Lab Routine History of bladder cancer Expected: 06/07/2024, Expires: 09/06/2024 [facility] Comment on above: Expected: 06/07/2024 , Expires: 09/06/2024 Start: 02-28-2024 Covid-19 Vaccine ( season) Covid-19 Vaccine () [facility] Start: 02-28-2024 Influenza vaccination [facility] Start: 01-28-2024 Influenza vaccination Flu vaccine (# 1) [facility] Start: 07-23-2023 DIABETES SCREEN DIABETES SCREEN [facility] Start: 07-23-2023 Diabetes Screening Diabetes Screenin g [facility] Start: 06-29-2023 Advance Directive Discussion Advance Directive Discussion [facility] Start: 06-29-2023 Behavioral Health Screening Behavioral Health Screening [facility] Start: 05-25-2023 Annual Wellness Visi t (Medicare) Annual Wellness Visit (Medicare) Mao Garcia [facility] Start: 05-06-2023 [facility] Start: 02-27-2023 Covid-19 Vaccine ( season) Covid-19 Vaccine () [facility] Start: 02-27-2023 Influenza vaccination [facility] Start: 07-04-2022 End: 05-03-2023 Ct abdomen & pelvis w/o contrst 1/> body re CT UROGRAM WO/W IVCON Radiology Routine Malignant neoplasm of urinary bladder, unspecified site (HCC) History of bladder cancer Expected: 07/04/2022, Expires: 05/03/2023 [facility] Work Phone: Comment on above: Expected: 07/04/2022 , Expires: 05/03/2023 Start: 07-01-2022 Hemolytic complement [facility] Start: 06-29-2022 ADVANCE DIRECTIVE DISCUSSION ADVANCE DIRECTIVE DISCUSSION [facility] Start: 06-29-2022 DEPRESSION ASSESSMENT DEPRESSION ASS ESSMENT [facility] Start: 05-02-2022 End: 07-02-2022 CREATININE BLD CREATININE BLD Lab Routine Malignant neoplasm of urinary bladder, unspecified site (HCC) Abnormal urine cytology Expected: 05/02/2022, Expires: 07/02/2022 [facility] Work Phone: Comment on above: Expected: 05/02/2022 , Expires: 07/02/2022 Start: 04-03-2022 End: 06-03-2022 CREATININE BLD CREATININE BLD Lab Routine Malignant neoplasm of urinary bladder, unspecified site (HCC) History of bladder cancer Expected: 04/03/2022, Expires: 06/03/2022 [facility] Work Phone: Comment on above: Expected: 04/03/2022 , Expires: 06/03/2022 Start: 02-27-2022 Influenza vaccination INFLUENZA (#1) [facility] Start: 11-21-2021 Medicare Annual Well ness (AWV) Medicare Annual Wellness (AWV) [facility] Start: 10-03-2021 COVID-19 VACCINE (4 - Booster for Pfizer series) COVID-19 VACCINE (4 - Booster for Pfizer series) [facility] Start: 07-30-2021 COVID-19 VACCINE (4 - Booster for Pfizer series) COVID-19 VACCINE (4 - Booster for Pfizer series) [facility] Start: 07-27-2021 Pneumococcal 65+ yea rs Vaccine (2 - PCV) Pneumococcal 65+ years Vaccine (2 - PCV) [facility] Start: 07-27-2021 Pneumococcal vaccination Pneum ococcal Vaccine Age 65+ (2 of 2 - PCV13) [facility] Start: 06-29-2021 ADVANCE DIRECTIVE DISCUSSION ADVANCE DIRECTIVE DISCUSSION [facility] Start: 06-29-2021 DEPRESSION ASSESSMENT DEPRESSION ASS ESSMENT [facility] Start: 06-07-2021 Shingles Vaccine (2 of 2) Shingles Vaccine (2 of 2) [facility] Start: 11-27-2020 End: 11-27-2020 Admission to same day surgery center 11/27/2020 Clinical Support Orthopedic Surgery Jose Francisco Villalpando MD [address] [place] [address] [phone] [facility] Start: 11-12-2020 End: 11-12-2020 Clinical Support 11/12/2020 Clinical Support Orthopedic Surgery Jose Francisco Villalpando MD [address] [place] [address] [phone] [facility] Start: 05-15-2020 End: 05-15-2020 Clinical Support 05/15/2020 Clinical Support Orthopedic Surgery Jose Francisco Villalpando MD [address] [place] [address] [phone] [facility] Start: 05-14-2020 End: 05-14-2020 Office Visit 05/14/2020 Office Visit Orthopedic Surgery Jose Francisco Villalpando MD [address] [place] [address] [phone] [facility] Start: 03-16-2020 End: 03-16-2020 Appointment 03/16/2020 Appointment Physical Therapy Liss Rico, PT [address] [place] [address] [phone] [facility] Start: 03-14-2020 End: 03-14-2020 Appointment 03/14/2020 Appointment Physical Therapy Shelley Cunningham PT [facility] Start: 03-09-2020 End: 03-09-2020 Appointment 03/09/2020 Appointment Physical Therapy Linda Gardner [facility] Start: 03-07-2020 End: 03-07-2020 Appointment 03/07/2020 Appointment Physical Therapy Linda Gardner [facility] Start: 03-02-2020 End: 03-02-2020 Appointment 03/02/2020 Appointment Physical Therapy Linda Gardner [facility] Start: 02-28-2020 Influenza vaccination Flu vaccine (# 1) [place] Start: 02-28-2020 Influenza vaccinatio n given Sequential Influenza Vaccine (#1) [facility] Start: 02-28-2020 End: 02-28-2020 Appointment 02/28/2020 Appointment Physical Therapy Linda Gardner [facility] Start: 02-23-2020 End: 02-23-2020 Appointment 02/23/2020 Appointment Physical Therapy Linda Gardner [facility] Start: 02-21-2020 End: 02-21-2020 Appointment 02/21/2020 Appointment Physical Linda Murillo [facility] Start: 05-27-2018 Lipid panel [facility] Start: 04-24-2017 History and physical examination, annual for health maintenance Wellness Visit [facility] Start: 01-01-2016 Abdominal aortic aneurysm screening AAA screen [facility] Start: 01-01-2016 Fall risk assessment Falls Risk Asse ssment [facility] Start: 01-01-2016 Pneumococcal 65+ yea rs Vaccine (1 of 1 - PPSV23) Pneumococcal 65+ years Vaccine (1 of 1 - PPSV23) [place] Start: 01-01-2016 Pneumococcal vaccination Pneum ococcal Vaccine Age 65+ (1 of 2 - PCV13) [facility] Start: 01-01-2016 Pneumococcal Vaccine : Age 65+ (1 of 1 - PPSV23) Pneumococcal Vaccine: Age 65+ (1 of 1 - PPSV23) [facility] Start: 01-01-2016 PNEUMOCOCCAL: 65+ (1 - PCV) PNEUMOCOCCAL: 65+ (1 - PCV) [facility] Start: 01-01-2016 PNEUMOVAX AGE 65 AND OVER WITH 5YR LOOKBACK (#1) PNEUMOVAX AGE 65 AND OVER WITH 5YR LOOKBACK (#1) [facility] Start: 03-29-2012 Medicare Annual Well ness Visit Medicare Annual Wellness Visit [facility] Start: 2010 Respiratory Syncytia l Virus (RSV) or age 60 yrs+ (1 - Risk 60-74 years 1-dose series) Respiratory Syncytial Virus (RSV) or age 60 yrs+ (1 - Risk 60-74 years 1-dose series) [facility] Start: 2010 RSV Vaccine (1 - 1-d ose 60+ series) RSV Vaccine (1 - 1-dose 60+ series) [facility] Start: 2010 RSV Vaccine (1 - Ris k 60-74 years 1-dose series) RSV Vaccine (1 - Risk 60-74 years 1-dose series) [facility] Start: 2000 Administration of he rpes zoster vaccine Zoster Vaccines (1 of 2) [facility] Start: 2000 Screening for malign ant neoplasm of colon [place] Start: 2000 Shingles Vaccine (1 of 2) Shingles Vaccine (1 of 2) [place] Start: 2000 SHINGRIX VACCINE (1 of 2) SHINGRIX VACCINE (1 of 2) [facility] Start: 01-01-1996 COLOGUARD (FIT-DNA) COLOGUARD (FIT-D NA) [facility] Start: 01-01-1996 Colonoscopy COLONOSCOPY [facility] Start: 01-01-1996 COLORECTAL CANCER SCREENING COLORECTAL CANCER SCREENING [facility] Start: 01-01-[address] COLONOGRAPHY [facility] Start: 01-01-1996 FECAL OCCULT BLOOD FECAL OCCULT BLOO D [facility] Start: 01-01-1996 Screening for malign ant neoplasm of colon [facility] Start: 01-01-1996 SIGMOIDOSCOPY [facility]OSCOPY [facility] Start: 1985 Lipid 1996 panel - S honey or Plasma Lipid Screening [facility] Start: 1985 Lipid panel Lipid Screening [facility] Start: 1985 LIPID SCREEN LIPID SCREEN [facility] Start: 1969 DTaP/Tdap/Td vaccine (1 - Tdap) DTaP/Tdap/Td vaccine (1 - Tdap) [facility] Start: 1969 SHINGRIX VACCINE (1 of 2) SHINGRIX VACCINE (1 of 2) [facility] Start: 1969 Urine microalbumin profile [facility] Start: 1968 Anxiety Screening Anxiety Screening [facility] Start: 1968 Depression Screening Depression Scre ening [facility] Start: 1968 Hepatitis C antibody , confirmatory test Hepatitis C Screening [facility] Start: 1968 Hepatitis C screening [facility] Start: 1968 HEPATITIS C SCREENING HEPATITIS C [facility] Start: 1966 COVID-19 Vaccine (1 of 2) COVID-19 Vaccine (1 of 2) [facility] Start: 1962 Adolescent depressio n screening assessment [facility] Start: 1962 COVID-19 Vaccine (1) COVID-19 Vaccin e (1) [facility] Start: 1962 Depression Screen Depression Screen [facility] Start: 1962 Depression screening using PHQ-9 (Patient Health Questionnaire 9) score [facility] Start: 1956 Pneumococcal Vaccine : 65+ (1 - PCV) Pneumococcal Vaccine: 65+ (1 - PCV) [facility] Start: 1956 PNEUMOCOCCAL: 65+ (1 - PCV) PNEUMOCOCCAL: 65+ (1 - PCV) [facility] Start: 1953 History and physical examination, annual for health maintenance Wellness Visit [facility] Start: 1950 Abdominal aortic aneurysm screening [facility] Start: 1950 ABDOMINAL AORTIC ANEURYSM SCREENING ABDOMINAL AORTIC ANEURYSM SCREENING [facility] Start: 1950 Fall risk assessment Falls Risk Asse ssment [facility] Start: 1950 [facility]atitis [facility] Start: 1950 Prostate specific antigen measurement PSA Level [facility] Start: 1950 Screening for malign ant neoplasm of colon [facility] Start: 1950 Tetanus vaccination Tetanus: Every 1 0yrs [facility] Start: 1950 US scan of abdominal aorta Abdominal Aortic Ultrasound [facility] End: 01-17-2025 Basic metabolic 2000 panel - Serum or Plasma Basic Metabolic Panel Lab Routine Daily for 1 Weeks starting 01/11/2025 until 01/17/2025, 3 [facility] Comment on above: Daily for [address] arting 01/11/2025 until 01/17/2025, 3 completed End: 08-25-2024 Cardiovascular stress testing [facility] Work Phone: Comment on above: 1 Occurrences starti ng 08/25/2024 until 08/25/2024 End: 06-01-2023 Ct abdomen & pelvis w/o contrst 1/> body re CT UROGRAM WO/W IVCON Radiology Routine Malignant neoplasm of urinary bladder, unspecified site (HCC) 1 Occurrences starting 05/02/2022 until 06/01/2023 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 CYTOLOGY NON-GY N Lab Routine History of bladder cancer 06/07/2024 2:18 PM [facility] CYTOLOGY NON-STRAIGHTEDGE WORKER CYTOLOGY NON-GY N Lab Routine History of bladder cancer 12/20/2024 1:59 PM EDT [facility] Glucose [Mass/volume ] in Serum or Plasma POCT Glucose Point of Care Testing STAT As Needed until discontinued starting 01/10/2025 [employer] Work Phone: Comment on above: As Needed until disc ontinued starting 01/10/2025 End: 01-17-2025 Hemoglobin and Hematocrit Hemoglobin and Hematocrit Lab Routine Daily for 1 Weeks starting 01/11/2025 until 01/17/2025, 3 completed [employer] Comment on above: Daily for [address] arting 01/11/2025 until 01/17/2025, 3 completed Oxygen therapy [[facility] Data Set] Initiate Oxygen Therapy Protocol Respiratory Care Routine As Needed until discontinued starting 01/10/2025 [employer] Comment on above: As Needed until disc ontinued starting 01/10/2025 Patient Education Esophageal Dil ation Hiatal Hernia (DC) [facility] Work Phone: Spirometry panel Incentive blair [employer] Respiratory Care Routine Every 2hr while awake until discontinued starting 01/10/2025 [employer] Comment on above: Every 2hr while awak e until discontinued starting 01/10/2025 XR Hip - right 3 Views XR hip ri ght 2 or 3 views Imaging Routine History of right hip replacement 02/13/2025 9:54 AM EDT [facility] Work Phone: [facility] Immunizations Immunization Date Immunization Notes Care Provider Evette clay 04-12-2021 influenza virus vacc ine, unspecified formulation Ct (I-Stat) Work Phone: [facility] Payers Date Payer Category Payer Self-pay 2022 Unknown [id number] 2021 Private Health Insurance [id number] 2021 Unknown [id number] 2020 Unknown [id number] .[id number] 2017 Unknown ANTHEM BCBS OUT OF [facility] xxxxxxxxxxxx 2017-Present xxxxxxxxxxxx [id number] .[id number] 2017 Unknown [id number] .[id number] 2012 Medicare MEDICARE MEDICAR E PART A & B xxxxxxxxxxx 2012-Present [place] xxxxxxxxxxx [id number] .[id number] 2012 Medicare [id number] .7.3.512579.315 2012 Medicare [id number] 1.13.159.2 .7.3.407781.315 1959 Medicare [id number] 1.2.840.239781.1.13.239.2 .7.3.080250.315 1959 Medicare [id number] 1959 Unknown [id number] 1.2.840.937398.1.13.239.2 .7.3.431441.315 1950 Unknown [id number] 2.16.840.1.094881.3.579.2 .593 1950 Unknown [id number] 2.16.840.1.116852.3.579.2 .593 1950 Unknown [id number] 2.16.840.1.359701.3.579.2 .593 1950 Unknown [id number] 2.16.840.1.726758.3.579.2 .593 1950 Unknown [id number] 2.16.840.1.656682.3.579.2 .903 1950 Unknown [id number] 2.16.840.1.228771.3.579.2 .903 1950 Unknown [id number] 2.16.840.1.491042.3.579.2 .174 1950 Unknown [id number] 2.16.840.1.246277.3.579.2 .174 1950 Unknown [id number] 2.16.840.1.006259.3.579.2 .174 1950 Unknown [id number] 2.16.840.1.932410.3.579.2 .174 1950 Unknown [id number] 2.16.840.1.264695.3.579.2 .174 1950 Unknown [id number] 2.16.840.1.054481.3.579.2 .93 1950 Unknown [id number] 2.16.840.1.760285.3.579.2 .1259 1950 Unknown [id number] 2.16.840.1.806043.3.579.2 .1259 1950 Unknown [id number] 2.16.840.1.439750.3.579.2 .1259 1950 Unknown [id number] 2.840.1.358057.3.579.2 .1259 Blue Cross Blue Shield [id number] 2.16.840.1.531945.19 Medicare Medicare Outpatient [id number] Private Health Insurance [facility] [id number] Unknown [id number] 2.16.840.1.987672.3.579.2 .531 Unknown [id number] 2.16840.1.455600.3.579.2 .531 Unknown [id number] 2.840.1.789141.3.579.2 .531 Unknown [id number] 2.840.1.834692.3.579.2 .531 Unknown [id number] 2.16840.1.459975.3.579.2 .531 Unknown [id number] 2.0.1.196887.3.579.2 .531 Social History Date Type Detail Facility Start: 02-07-2020 End: 05-06-2023 Tobacco smoking status NHIS Former smoker [facility] Start: 02-07-2020 End: 10-20-2023 Alcohol intake Ex-drinker (finding) [facility] Start: 1950 Sex Assigned At Not on file O [facility] Start: 10-14-2021 End: 05-15-2022 Exposure to SARS-CoV-2 (event) Not sure [facility] Start: 03-24-1962 End: 03-24-2002 History of tobacco use Current smoker [place] Start: 09-12-2017 End: 12-28-2023 Tobacco use and exposure Never used [place] Start: 09-12-2017 End: 01-11-2025 Alcohol intake Current drinker of alcohol (finding) [place] Start: 03-24-2013 Alcohol Comment rarely [place], [place] Start: 08-02-2020 End: 02-13-2025 Sex Assigned At [facility] Start: 1950 Sex Assigned At Male F [facility] Start: 08-02-2020 End: 02-13-2025 History of Social function [facility] National Score (1-100), lower number is lower risk 77 [facility] Start: 03-24-1962 End: 03-24-2002 History of tobacco use Cigarette Smoker [facility] Start: 01-25-2024 End: 02-13-2025 Alcoholic beverage intake Lifetime non-drinker (finding) [facility] Start: 01-30-2023 Alcohol Comment caffeine intak e: 1-2 cups per day [facility] Start: 12-21-2023 Gender identity Identifies as male gender (finding) [facility] Start: 08-08-2012 End: 08-30-2024 Sex Male (finding) [facility] History of tobacco use Passive smoker [facility] Medical Equipment Procedure Code Equipment Code Equipment Origin al Text Equipment Identifier Dates Set Screw 5.5-6. 0 - [id number] Start: 01-10-2025 Screw Poly Solid 7.5x45 - [id number] Start: 01-10-2025 Screw Poly Solid 7.5x50 - [id number] Start: 01-10-2025 Joni Ti Prebent 5.5x100 - [id number] Start: 01-10-2025 Joni Ti Prebent 5.5x105 - [id number] Start: 01-10-2025 Connector Spnl M Streamline Tl Anastacio X Link - [id number] Start: 01-10-2025 Goals Date Patient Goal Desired Activity /State Clinical Notes 11-09-2020 to 02-13-2025 Emmie Rodrigez - 02/13/2025 11:00 AM Donita Sorto RN - 01/13/2025 11:35 AM Petey Callaway PA - 01/13/2025 7:20 AM Dona Eaton MD - 01/12/2025 5:28 PM EDTDischarge Instructions Note Date & Type Note Facility 02-13-2025 History of Present illness Narrative Images from the original note were not included. Timur Francisco is a 74 y.o. male presents with chief complaint of right lower extremity weakness, status post total hip arthroplasty. HPI: Edu is seen here today for evaluation of his right hip. He has had total hip arthroplasty and doing well with that. He does have a history of a recent back surgery which he describes as a fusion from L1 all the way down to L5. He has had no interval change. He states that prior to that procedure, he did have some weakness noted in the extremity. He describes here presently weakness upon hip flexion, knee extension. He can ankle dorsiflex, plantar flex without difficulty. He is concerned about this. He has not had any real dialogue with the surgeon he describes. He denies any injury. He has had no further testing. He does have an upcoming visit with the surgeon planned for apparently next week. SUBJECTIVE: MEDICATIONS: Current Outpatient Medications Medication Instructions amLODIPine-benazepril (Lotrel) 10-20 MG capsule cyanocobalamin (VITAMIN B-12) 100 mcg, Daily cyclobenzaprine (FLEXERIL) 10 mg, 3 times daily PRN diclofenac sodium (VOLTAREN) 2 g, Topical, 3 times daily finasteride (PROSCAR) 5 mg, Daily RT folic acid (FOLVITE) 1,000 mcg, Daily Glucosamine 500 MG capsule Every 24 hours hydroxychloroquine (Plaquenil) 200 MG tablet methotrexate 2.5 MG tablet Multiple Vitamin (multivitamin) tablet 1 tablet, Daily omeprazole (PRILOSEC) 20 mg, Every 24 hours pyridoxine (Vitamin B-6) 25 MG tablet ALLERGIES: Allergies Allergen Reactions Demerol Hcl [Meperidine] Other Drops BP SURGICAL HISTORY: Past Surgical History: Procedure Laterality Date APPENDECTOMY 2005 APPENDECTOMY 2006 BLADDER TUMOR EXCISION 01/2018 Dr Matson, [facility] CATARACT EXTRACTION Bilateral 2023 Dr. Edwards CHOLECYSTECTOMY 2003 COLONOSCOPY 2010 EGD CYSTOSCOPY 10/2018 [facility] CYSTOSCOPY WITH BIOPSY 09/15/2018 and Fulguration of bladder CYSTOSCOPY WITH BIOPSY 02/02/2019 Cystoscopy, Bladder bx and Fulguration, Dr Nobles CYSTOSCOPY WITH BIOPSY 07/25/2020 Cystoscopy, bladder bx, [facility] EGD 2011 HEEL SPUR SURGERY Left 2006 HERNIA REPAIR 2005 HIP ARTHROPLASTY LUMBAR FUSION 2001 L4/L5 [place] ARTHROSCOPY KNEE DIAGNOSTIC W/WO SYNOVIAL BX SPX 2013 [place] LAP,CHOLECYSTECTOMY 2004 PROSTATE SURGERY 01/2018 Dr. Matson [facility] TOTAL HIP ARTHROPLASTY Right DAP TRANSURETHRAL RESECTION OF BLADDER TUMOR 12/07/2019 UMBILICAL HERNIA REPAIR 2006 FAMILY HISTORY: Family History Problem Relation Name Age of Onset Stroke Mother Heart disease Father No Known Problems Sister Hypertension Brother No Known Problems Daughter SOCIAL HISTORY: Social History Tobacco Use Smoking status: Former Current packs/day: 0.00 Types: Cigarettes Quit date: 2001 Years since quittin.6 Smokeless tobacco: Never Vaping Use Vaping status: Never Used Substance Use Topics Alcohol use: Never Comment: caffeine intake: 1-2 cups per day Drug use: Never Depression: Not on file REVIEW OF SYMPTOMS: The review of systems, history and current medications list are all reviewed today. OBJECTIVE: Visit Vitals Ht 6' 6 Wt 194 lb BMI 22.42 kg/m Smoking Status Former BSA 2.2 m Physical Exam His orthopedic exam here today shows obvious weakness with hip flexion on the right, as well as knee extension on the right. He is able to do these on the left. He may have a little bit of some quad atrophy in comparison. The calf and thigh are supple. Ankle dorsiflexion, plantar flexion are intact bilaterally. Hip arc of motion is on the order of 45 degrees each without pain. He does wear a corset type lumbar brace here today. Examination of the x-ray AP pelvis, right hip total of three views with permanent images are saved to the record does show an apparently well-fixed, well-aligned total hip arthroplasty. There is no asymmetric wear pattern. No evidence of fracture, loosening or catastrophic wear. He has no change on serial x-rays. ASSESSMENT AND PLAN: Assessment/Plan Status post right total hip arthroplasty with right lower extremity weakness. The findings are discussed. The most likely etiology of this lower extremity weakness would be that of his back. He has had a multilevel fusion. The question is what was his state ahead of this. We did discuss neurodiagnostic testing as being the likely reasonable next step. He would like to have some dialogue with his operating spine surgeon. We did explain some of the options surrounding urology for a work up. It may be that he is simply weak, however, he does appear to have absence of function which is definitely concerning. Ultimately we will see him back in one year for x-ray and recheck of the hip. We would be happy to order the neurodiagnostic testing. He does voice understanding of this and will let us know. All of his questions are otherwise answered. He is discharged in stable condition. Cosigned by Zeinab Chavira DO at 02/14/2025 2:00 PM EDT documented in this encounter [facility] 01-13-2025 History of Present illness Narrative Pt discharged to private vehicle with all of his personal belongings via wheelchair by RN. MORALESS reviewed at the time of discharge. Department of Orthopedic Surgery Spine Service Attending Progress Note Subjective: POD#3 no new issues. +BM. Ambulated in tate and did stairs. Hgb 10.9 Vitals VITALS: BP (!) 119/59 Pulse 80 Temp 98.4 F (36.9 C) (Oral) Resp 16 Ht 1.829 m (6') Wt 90.5 kg (199 lb 9.6 oz) SpO2 92% BMI 27.07 kg/m 24HR INTAKE/OUTPUT: Intake/Output Summary (Last 24 hours) at 01/13/2025 07 Last data filed at 01/13/2025 0718 Gross per 24 hour Intake 695 ml Output 2915 ml Net -2220 ml URINARY CATHETER OUTPUT (Mcgregor): [REMOVED] Urinary Catheter 01/10/25 Fjfyp-Jyfdtyobvol-Hmdjmz (mL): 150 mL DRAIN/TUBE OUTPUT: Closed/Suction Drain Left Back Accordion-Output (ml): 150 ml Closed/Suction Drain Right Back Accordion-Output (ml): 10 ml PHYSICAL EXAM: Orientation: alert and oriented to person, place and time Incision: dressing in place, clean, dry, intact Lower Extremity Motor : quadriceps, extensor hallucis longus, dorsiflexion, plantarflexion 5/5 bilaterally Lower Extremity Sensory: Intact L1-S1 Flatus: positive LABS: HgB: Lab Results Component Value Date/Time HGB 10.9 01/13/2025 06:44 AM Hemoglobin/Hematocrit: Lab Results Component Value Date/Time HGB 10.9 01/13/2025 06:44 AM HCT 32.3 01/13/2025 06:44 AM BMP: Lab Results Component Value Date/Time NA 139 01/12/2025 08:01 AM K 3.8 01/12/2025 08:01 AM CL 103 01/12/2025 08:01 AM CO2 26 01/12/2025 08:01 AM BUN 12 01/12/2025 08:01 AM CREATININE 0.7 01/12/2025 08:01 AM CALCIUM 8.4 01/12/2025 08:01 AM GFRAA >60 03/24/2013 10:53 AM LABGLOM > 90 01/12/2025 08:01 AM GLUCOSE 127 01/12/2025 08:01 AM ASSESSMENT AND PLAN: Post operative day 3 status post HW removal, L1-5 decompression and fusion extension up to L2 1: Monitor labs and drain output 2: Activity Level: As tolerated. PT/OT, back brace when ambulating 3: Pain Control: Good 4: Discharge Planning: Home today with HH for drain care SHANIKA Hamilton INTERNAL MEDICINE Progress Note 01/12/2025 5:28 PM Subjective: Admit Date: 01/10/2025 PCP: Danette Muniz APRN - FACILITY SPECIALIST Interval History: Late entry No LAMAR No BM Objective: Vitals: BP 130/69 Pulse 95 Temp 98.6 F (37 C) (Oral) Resp 15 Ht 1.829 m (6') Wt 90.5 kg (199 lb 9.6 oz) SpO2 93% BMI 27.07 kg/m General appearance: alert and cooperative with exam HEENT: Head: atraumatic Neck: no adenopathy, no carotid bruit, no JVD, and supple, symmetrical, trachea midline Lungs: clear to auscultation bilaterally Heart: S1, S2 normal Abdomen: soft, non-tender; bowel sounds normal; no masses, no organomegaly Extremities: no edema, redness or tenderness in the calves or thighs Neurologic: Mental status: Alert, oriented, thought content appropriate Medications: Scheduled Meds: naloxegol 12.5 mg Oral QAM AC folic acid 1 mg Oral Daily finasteride 5 mg Oral Daily hydroxychloroquine 200 mg Oral BID pantoprazole 40 mg Oral QAM AC tamsulosin 0.4 mg Oral Daily sodium chloride flush 5-40 mL IntraVENous 2 times per day polyethylene glycol 17 g Oral Daily bisacodyl 5 mg Oral Daily sennosides-docusate sodium 1 tablet Oral BID amLODIPine 10 mg Oral Daily And lisinopril 20 mg Oral Daily Continuous Infusions: sodium chloride Stopped (01/11/25 1235) sodium chloride Lab Results: CBC: Recent Labs 01/11/25 0726 01/12/25 0801 HGB 12.0* 11.1* BMP: Recent Labs 01/11/25 0726 01/12/25 0801 NA 138 139 K 4.1 3.8 CL 106 103 CO2 22 26 BUN 13 12 CREATININE 0.8 0.7 GLUCOSE 162* 127* Assessment and Plan: Lumbar DDD with spinal stenosis and NC S/p L1-L5 decompressive laminectomy and L2-L5 PSF HTN COPD JOHNATHON- noncompliant with CPAP RA H/o bladder cancer s/p TURBT / BCG Rx Cont post op care Analgesics Bowel regimen SCD. bp meds, hold for SBP < 110 PT/OT Dona Moody MD, MD Spiritual Health History and Assessment/Progress Note [facility] Initial Encounter, , , Name: Timur Francisco Age: 74 y.o. Sex: male Language: Mongolian Faith: Non-Restorationist Lumbar stenosis with neurogenic claudication Date: 01/12/2025 Total Time Calculated: (P) 6 min Spiritual Assessment continued in [facility] 7K Referral/Consult From: Rounding Encounter Overview/Reason: Initial Encounter Service Provided For: Patient and family together Cindi, Belief, Meaning: Patient identifies as spiritual Family/Friends identify as spiritual Importance and Influence: Patient has spiritual/personal beliefs that influence decisions regarding their health Family/Friends have spiritual/personal beliefs that influence decisions regarding the patient's health Community: Patient is connected with a spiritual community Family/Friends are connected with a spiritual community: Assessment and Plan of Care: Patient Interventions include: Facilitated expression of thoughts and feelings Family/Friends Interventions include: Facilitated expression of thoughts and feelings Patient Plan of Care: Spiritual Care available upon further referral Family/Friends Plan of Care: Spiritual Care available upon further referral [facility] 7K Occupational Therapy Daily Note Discharge Recommendations: 24 hour assistance or supervision, Home with assist as needed, and Home with Home Health OT Equipment Recommendations: HH shower head Time In: 1330 Time Out: 1408 Timed Code Treatment Minutes: 38 Minutes Minutes: 38 Date: 01/12/2025 Patient Name: Timur Francisco, Gender: male Room: [facility]008 : 1950 (74 y.o.) Referring Practitioner: SHANIKA Hamilton Diagnosis: Lumbar stenosis with neurogenic claudication Additional Pertinent Hx: Pt is status post L5-S1 posterior spinal fusion done in 2001 with refractory back and leg pain from degenerative disc disease and lumbar stenosis from L1-5. Patient has failed full conservative therapy including medication management, physician directed home exercises and chiropractic treatment. Due to the persistence of symptoms and reduction in the ADLs, patient elected surgical treatment. Pt is S/P L5-S1 exploration and removal of instrumentation; L1-L5 Bilateral laminectomy, partial medial foramenotomies and facetectomies of L1,L2,L3,L4,L5 nerve roots; L2-L5 PSF on 01/10/25. Restrictions/Precautions: Restrictions/Precautions: Fall Risk, Surgical Protocols, General Precautions Required Braces or Orthoses Spinal: Lumbar Corset Position Activity Restriction Spinal Precautions: No Bending/Lifting/Twisting (BLT) Other Position/Activity Restrictions: lumbar drains Social/Functional History: Lives With: Spouse, Daughter Type of Home: House Home Layout: Two level, Bed/Bath upstairs, Able to Live on Main level with bedroom/bathroom, 1/2 bath on main level Home Access: Stairs to enter with rails Entrance Stairs - Number of Steps: 4 JOSE ALFREDO Entrance Stairs - Rails: Left Home Equipment: Walker - Rolling, Cane Bathroom Shower/Tub: Walk-in shower Bathroom Toilet: Standard Bathroom Accessibility: Accessible Receives Help From: Family Prior Level of Assist for ADLs: Independent Prior Level of Assist for Homemaking: Needs assistance Homemaking Responsibilities: Yes Prior Level of Assist for Transfers: Independent Prior Level of Assist for Ambulation: Independent household ambulator, with or without device, Independent community ambulator, with or without device Has the patient had two or more falls in the past year or any fall with injury in the past year?: No 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 No AD prior to that. Pt was doing his own self care. He had increased pain when walking far distances. SUBJECTIVE: RN okayed OT session. Pt. Agreeable to participate. PAIN: 10: low back Vitals: Nurse checked vitals prior to session COGNITION: Decreased Insight and Decreased Safety Awareness ADL: Grooming: Contact Guard Assistance, with set-up, with verbal cues , and with increased time for completion. Top stand at sink and wash hands/face and to complete oral care X ~ 3.5 mins vcs for safe RW placement and posture. Pt. With flexed R knee demo decreased safety at times. Upper Extremity Dressing: Minimal Assistance and X 1. To don corset and to doff Lower Extremity Dressing: Minimal Assistance, with set-up, with verbal cues , and with increased time for completion. To don LB clothing with use of LHR after demo and verbal education. Footwear Management: Moderate Assistance, with set-up, with verbal cues , and with increased time for completion. To don socks with sock aid and to doff with probation and parole officer and or Pt. Performing figure four to doff although unable to perform to don. Toileting: Contact Guard Assistance. Increased time spent due to Pt. Attempting to have a BM feels constipated. Toilet Transfer: Contact Guard Assistance. . IADL: Not Tested BED MOBILITY: Sit to Supine: Stand By Assistance, with verbal cues , with increased time for completion Scooting: Dependent hercules utilized TRANSFERS: Sit to Stand: Contact Guard Assistance, with increased time for completion, cues for hand placement, with verbal cues. Stand to Sit: Contact Guard Assistance, with increased time for completion, cues for hand placement. FUNCTIONAL MOBILITY: Assistive Device: Rolling Walker Assist Level: Contact Guard Assistance, Minimal Assistance, X 1, with set-up, with verbal cues , and with increased time for completion. Distance: To and from bathroom and Household distances within unit Pt. Unsteady at times with increased R knee flexion and occasional buckling Pt. Reports this is not new. ADDITIONAL ACTIVITIES: Pt. Educated on precautions able to recall 2/3. Modified [place]: Current Functional Status: Not Applicable Education: Learners: Patient ADL's, Precautions: , Equipment Education, Fall Prevention, and Assistive Device Safety ASSESSMENT: Activity Tolerance: Patient tolerance of treatment: Good treatment tolerance Plan: Times Per Week: 6x Specific Instructions for Next Treatment: Functional mobility; ADLs and dynamic reaching; endurance training Current Treatment Recommendations: Safety education & training, Endurance training, Functional mobility training, Balance training, Self-Care / ADL Additional Comments: Pt would benefit from continued skilled OT services when medically stable and discharged from Acute. HHOT recommended. Goals Short Term Goals Time Frame for Short Term Goals: By discharge Short Term Goal 1: Pt will complete sinkside ADLs while using 1-2 hand release with SBA and verbal cues for posture to increase his safety and activity tolerance for ease of showering or grooming. Short Term Goal 2: Pt will complete various transfers including to/from the elevated toilet seat with SBA to increase his independence with self care routine. Short Term Goal 3: Pt will demonstrate functional mobility walking to/from the kitchenette while using a rolling walker with SBA to prepare for doing ADLs or homemaking tasks. Short Term Goal 4: Pt will complete dynamic standing balance activities with SBA and verbal cues for back precautions to increase his safety for return to doing leisure activities. Additional Goals?: No Following session, patient left in safe position in bed, with alarm, and call light within reach Cosigned by Ric Crockett OT at 01/13/2025 7:28 AM EDT [facility] INPATIENT PHYSICAL THERAPY DAILY NOTE [facility] 7K - [id number] Discharge Recommendations: pt plans home with spouse for assist. Recommend pt stay for another PT rx and use of gait belt at all times for safety at this time. Pt would benefit from cont PT at discharge. Equipment Recommendations: No Time In: 1055 Time Out: 1119 Timed Code Treatment Minutes: 24 Minutes Minutes: 24 Date: 01/12/2025 Patient Name: Timur Francisco, Gender: male : 1950 (74 y.o.) Referring Practitioner: Petey Miller PA Diagnosis: Lumbar stenosis with neurogenic claudication Additional Pertinent Hx: Pt is status post HW removal, L1-5 decompression and fusion extension up to L2 completed by Dr. Hummel on 01/10. Prior Level of Function: Lives With: Spouse, Daughter Type of Home: House Home Layout: Two level, Bed/Bath upstairs, Able to Live on Main level with bedroom/bathroom, 1/2 bath on main level Home Access: Stairs to enter with rails Entrance Stairs - Number of Steps: 4 JOSE ALFREDO Entrance Stairs - Rails: Left Home Equipment: Walker - Rolling, Cane Bathroom Shower/Tub: Walk-in shower Bathroom Toilet: Standard Bathroom Accessibility: Accessible Receives Help From: Family Prior Level of Assist for ADLs: Independent Prior Level of Assist for Homemaking: Needs assistance Homemaking Responsibilities: Yes Prior Level of Assist for Transfers: Independent Active B[employer] Mason: Yes Additional Comments: IND with use of a cane in the days leading to admission. No AD prior to that. Pt was doing his own self care. He had increased pain when walking far distances. Prior Level of Assist for Ambulation: Independent household ambulator, with or without device, Independent community ambulator, with or without device Has the patient had two or more falls in the past year or any fall with injury in the past year?: No Restrictions/Precautions: Restrictions/Precautions: Fall Risk, Surgical Protocols, General Precautions Required Braces or Orthoses Spinal: Lumbar Corset Position Activity Restriction Spinal Precautions: No Bending/Lifting/Twisting (BLT) Other Position/Activity Restrictions: lumbar drains SUBJECTIVE: pleasant and cooperative. Discussed use of gait belt and 24/7 assist for safety at this time due to weakness and dec balance. PAIN: 10/06: back per pt Vitals: Vitals not assessed per clinical judgement, see nursing flowsheet OBJECTIVE: Bed Mobility: Rolling to Right: Stand By Assistance, X 1, with head of bed flat, with rail, with verbal cues , with increased time for completion Supine to Sit: Stand By Assistance, X 1, with head of bed flat, with rail, with verbal cues , with increased time for completion Scooting: Stand By Assistance, X 1 Transfers: Sit to Stand: Contact Guard Assistance, X 1, cues for hand placement Stand to Sit:Contact Guard Assistance, X 1, cues for hand placement Ambulation: Contact Guard Assistance, to minAx1 Distance: 50'x2 Surface: Level Tile Device: Rolling Walker Gait Deviations: Forward Flexed Posture, Slow Paula, Mild Path Deviations, Verbal and tactile cues for safety and sequencing required during gait training in order for a more normalized gait pattern and fall preventions. Without verbal and tactile cues, patient would require more physical assistance in order to complete task, and min unsteady with NBOS, pt is unsteady. Stairs: Stairs: 6 steps X 4 using Bilateral Handrails and Minimal Assistance, to CGAx1, nonreciprocal, cues for use of gait belt and assist for safety. Balance: Static Sitting Balance: Stand By Assistance, X 1, assist to cristi back brace Static Standing Balance: Contact Guard Assistance, X 1, with RW Exercise: Patient was guided in 1 set(s) 10 reps of exercises to both lower extremities: ,Seated marches, Seated heel/toe raises, Long arc quads, and Seated abduction/adduction. Exercises were completed for increased independence with functional mobility. Cues for slow and full ROM. Functional Outcome Measures: [facility] (6 CLICK) BASIC MOBILITY AM-[facility] Inpatient Mobility Raw Score : 18 AM-[facility] Inpatient T-Scale Score : 43.63 Modified [place]: Current Functional Status: Not Applicable ASSESSMENT: Assessment: Patient progressing toward established goals. Activity Tolerance: Patient tolerance of treatment:Good. Plan: Current Treatment Recommendations: Strengthening, Balance training, Gait training, Functional mobility training, Neuromuscular re-education, Transfer training, Stair training, Endurance training, Equipment evaluation, education, & procurement, Patient/Caregiver education & training, Safety education & training, Therapeutic activities, Home exercise program General Plan: (6x O) Education: Learners: Patient Patient Education: Home Exercise Program, Precautions/Restrictions, Bed Mobility, Transfers, Gait, Stairs, Use of Gait Belt, - Patient Verbalized Understanding Goals: Patient Goals : return home with Short Term Goals Time Frame for Short Term Goals: by discharge Short Term Goal 1: Pt will demo sit to/from stand transfers with S with RW to progress with mobility. Short Term Goal 2: Pt will amb for >75 feet with RW with S to progress with mobility. Short Term Goal 3: Pt will demo IND with bed mobility tasks with bed flat to progress with mobility. Short Term Goal 4: Pt will demo S for stair negotiation with rail for support to return home safely. Long-Term Goals Time Frame for Long-Term Goals : NA due to short ELOS Following session, patient left in safe position in chair, with alarm, and call light within reach Department of Orthopedic Surgery Spine Service Attending Progress Note Subjective: POD#2 patient doing well, c/o surgical site pain. Ambulated in room with PT. No BM. Vitals VITALS: BP (!) 117/57 Pulse 93 Temp 99 F (37.2 C) (Oral) Resp 16 Ht 1.829 m (6') Wt 90.5 kg (199 lb 9.6 oz) SpO2 91% BMI 27.07 kg/m 24HR INTAKE/OUTPUT: Intake/Output Summary (Last 24 hours) at 01/12/2025 0654 Last data filed at 01/12/2025 0355 Gross per 24 hour Intake 1300 ml Output 2990 ml Net -1690 ml URINARY CATHETER OUTPUT (Mcgregor): [REMOVED] Urinary Catheter 01/10/25 Nnzeu-Ubinmfimyuw-Vichru (mL): 150 mL DRAIN/TUBE OUTPUT: Closed/Suction Drain Left Back Accordion-Output (ml): 110 ml Closed/Suction Drain Right Back Accordion-Output (ml): 20 ml PHYSICAL EXAM: Orientation: alert and oriented to person, place and time Incision: dressing in place, clean, dry, intact Lower Extremity Motor : quadriceps, extensor hallucis longus, dorsiflexion, plantarflexion 5/5 bilaterally Lower Extremity Sensory: Intact L1-S1 Flatus: positive LABS: HgB: Lab Results Component Value Date/Time HGB 12.0 01/11/2025 07:26 AM Hemoglobin/Hematocrit: Lab Results Component Value Date/Time HGB 12.0 01/11/2025 07:26 AM HCT 35.9 01/11/2025 07:26 AM BMP: Lab Results Component Value Date/Time NA 138 01/11/2025 07:26 AM K 4.1 01/11/2025 07:26 AM CL 106 01/11/2025 07:26 AM CO2 22 01/11/2025 07:26 AM BUN 13 01/11/2025 07:26 AM CREATININE 0.8 01/11/2025 07:26 AM CALCIUM 8.2 01/11/2025 07:26 AM GFRAA >60 03/24/2013 10:53 AM LABGLOM > 90 01/11/2025 07:26 AM GLUCOSE 162 01/11/2025 07:26 AM ASSESSMENT AND PLAN: Post operative day 2 status post HW removal, L1-5 decompression and fusion extension up to L2 1: Monitor labs and drain output 2: Activity Level: As tolerated. PT/OT, back brace when ambulating 3: Pain Control: Good 4: Discharge Planning: Pending 5: AM labs pending - hgb 12.0 yesterday SHANIKA Hamilton [facility] INPATIENT OCCUPATIONAL THERAPY [facility] 7K EVALUATION Discharge Recommendations: Patient would benefit from continued therapy after discharge, Home with Home health OT Equipment Recommendations: HH shower head Time In: 1225 Time Out: 1308 Timed Code Treatment Minutes: 28 Minutes Minutes: 43 Date: 01/11/2025 Patient Name: Timur Francisco, Gender: male : 1950 (74 y.o.) Referring Practitioner: SHANIKA Hamilton Diagnosis: Lumbar stenosis with neurogenic claudication Additional Pertinent Hx: Pt is status post L5-S1 posterior spinal fusion done in 2001 with refractory back and leg pain from degenerative disc disease and lumbar stenosis from L1-5. Patient has failed full conservative therapy including medication management, physician directed home exercises and chiropractic treatment. Due to the persistence of symptoms and reduction in the ADLs, patient elected surgical treatment. Pt is S/P L5-S1 exploration and removal of instrumentation; L1-L5 Bilateral laminectomy, partial medial foramenotomies and facetectomies of L1,L2,L3,L4,L5 nerve roots; L2-L5 PSF on 01/10/25. Restrictions/Precautions: Restrictions/Precautions: Fall Risk, Surgical Protocols, General Precautions Required Braces or Orthoses Spinal: Lumbar Corset Position Activity Restriction Spinal Precautions: No Bending/Lifting/Twisting (BLT) Subjective Chart Reviewed: Yes, Orders, History and Physical, Other (comment) (PT evaluation) Patient assessed for rehabilitation services?: Yes Family / Caregiver Present: Yes (Pt's spouse present and supportive) Subjective: Pleasant and cooperative Comments: RN approved session. Pt agreed to demonstrate functional mobility walking in the room. He was sitting in the chair following the session. Pt C/O moderate pain across his lower back. No radiation down his legs reported. Pain: 5/10: across his lower back Vitals: Vitals not assessed per clinical judgement, see nursing flowsheet Social/Functional History: Lives With: Spouse, Daughter Type of Home: House Home Layout: Two level, Bed/Bath upstairs, Able to Live on Main level with bedroom/bathroom, 1/2 bath on main level Home Access: Stairs to enter with rails Entrance Stairs - Number of Steps: 4 JOSE ALFREDO Entrance Stairs - Rails: Left Home Equipment: Walker - Rolling, Cane Bathroom Shower/Tub: Walk-in shower Bathroom Toilet: Standard Bathroom Accessibility: Accessible Receives Help From: Family Prior Level of Assist for ADLs: Independent Prior Level of Assist for Homemaking: Needs assistance Homemaking Responsibilities: Yes Prior Level of Assist for Transfers: Independent Prior Level of Assist for Ambulation: Independent household ambulator, with or without device, Independent community ambulator, with or without device Has the patient had two or more falls in the past year or any fall with injury in the past year?: No 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 No AD prior to that. Pt was doing his own self care. He had increased pain when walking far distances. VISION:Corrected HEARING: Corrected COGNITION: WFL RANGE OF MOTION: Bilateral Upper Extremity: WFL STRENGTH: Bilateral Upper Extremity: Not tested. Hand Dominance: Right SENSATION: WFL- improvement noted: pt had occasional tinging in his feet prior to this surgery) ADL: Toileting: Modified Independent. Using a urinal while sitting in the chair Pt sat at the edge of bed while donning the LS corset brace with SBA. IADL: Not Tested BALANCE: Sitting Balance: Stand By Assistance. Scooting at the edge of bed. Standing Balance: Stand By Assistance. Preparing to walk BED MOBILITY: Rolling to Right: Stand By Assistance, with head of bed flat, with rail Supine to Sit: Stand By Assistance, with head of bed flat, with rail Scooting: Stand By Assistance, with rail TRANSFERS: Sit to Stand: Contact Guard Assistance. From the edge of bed Stand to Sit: Stand By Assistance. To the recliner chair FUNCTIONAL MOBILITY: Assistive Device: Rolling Walker Assist Level: Stand By Assistance. Distance: Within room Pt has favoring of his LLE and takes a slow pace. Verbal cue provided for hand placement on the boxing trainer of the walker. Activity Tolerance: Patient tolerance of treatment: Fair treatment tolerance Pt remained in the chair following the session. Pt had tolerated standing for 45 second duration. Functional Outcome Measures: AM-PAC Inpatient Daily Activity Raw Score: 18 Modified [place]: Premorbid Functional Status: Not Applicable Current Functional Status: Not Applicable Education: Learners: Patient Plan of Care, Role of OT,Precautions: back protection, Fall Prevention, and monitoring his fatigue levels so he can take breaks before he gets more tired and is at increased risk of having a fall Assessment: Assessment: Pt presents to occupational therapy on Acute with a lumbar stenosis with neurogenic claudication. Pt demonstrates decreased endurance, strength and endurance impacting patient's ability to complete self care at prior level of functioning. Pt currently requires increased assistance with self care and use of a rolling walker for mobility. Due to patient's performance deficits in ADLs and standing activities, he would greatly benefit from continued occupational therapy services. Performance deficits / Impairments: Decreased functional mobility , Decreased ADL status, Decreased high-level IADLs, Decreased balance, Decreased endurance Prognosis: Good REQUIRES OT FOLLOW-UP: Yes Decision Making: Medium Complexity Treatment Initiated: Treatment and education initiated within context of evaluation. Evaluation time included review of current medical information, gathering information related to past medical, social and functional history, completion of standardized testing, formal and informal observation of tasks, assessment of data and development of plan of care and goals. Treatment time included skilled education and facilitation of tasks to increase safety and independence with ADL's for improved functional independence and quality of life. Pt was independent with doing self care and had to start using a cane. Back protection techniques were demonstrated. Pt knew the no Bending, Lifting, Twisting with min cue provided. Encouraged pt minimize how much he has to reach away from his body for tasks to help protect his back. Pt verbalized understanding. Will benefit practicing safe reaching and lifting techniques. Benefit of having plenty of protein in his diet while he is healing. Pt verbalized understanding. Pt states that he likes to eat seafood. Plan: Times Per Week: 6x Current Treatment Recommendations: Safety education & training, Endurance training, Functional mobility training, Balance training, Self-Care / ADL Additional Comments: Pt would benefit from continued skilled OT services when medically stable and discharged from Acute. HHOT recommended. Specific Instructions for Next Treatment: Functional mobility; ADLs and dynamic reaching; endurance training. See long-term goal time frame for expected duration of plan of care. If no long-term goals established, a short length of stay is anticipated. Goals: Patient goals : I want to get back to doing things I can enjoy. pt states Short Term Goals Time Frame for Short Term Goals: By discharge Short Term Goal 1: Pt will complete sinkside ADLs while using 1-2 hand release with SBA and verbal cues for posture to increase his safety and activity tolerance for ease of showering or grooming. Short Term Goal 2: Pt will complete various transfers including to/from the elevated toilet seat with SBA to increase his independence with self care routine. Short Term Goal 3: Pt will demonstrate functional mobility walking to/from the kitchenette while using a rolling walker with SBA to prepare for doing ADLs or homemaking tasks. Short Term Goal 4: Pt will complete dynamic standing balance activities with SBA and verbal cues for back precautions to increase his safety for return to doing leisure activities. Additional Goals?: No AM-[facility] Inpatient Daily Activity Raw Score: 18 AM-[facility] Inpatient ADL T-Scale Score : 38.66 Following session, patient left in safe position in chair, with alarm, and call light within reach Patient educated on how to use incentive spirometer. Patient verbalized understanding and demonstrated proper use. Emphasized importance and usage of device, with coughing and deep breathing every 2 hours while awake. [facility] INPATIENT PHYSICAL THERAPY EVALUATION [facility] 7K - [id number] Discharge Recommendations: Continue to assess pending progress, anticipate home with and HH services Equipment Recommendations: No Time In: 0903 Time Out: 0935 Timed Code Treatment Minutes: 23 Minutes Minutes: 32 Date: 01/11/2025 Patient Name: Timur Francisco, Gender: male : 1950 (74 y.o.) Referring Practitioner: Petey Miller PA Diagnosis: Lumbar stenosis with neurogenic claudication Additional Pertinent Hx: Pt is status post HW removal, L1-5 decompression and fusion extension up to L2 completed by Dr. Hummel on 01/10. Restrictions/Precautions: Restrictions/Precautions: Fall Risk, Surgical Protocols, General Precautions Spinal Precautions: No Bending/Lifting/Twisting (BLT) Required Braces or Orthoses?: Yes Spinal: Lumbar Corset Subjective: Chart Reviewed: Yes Patient assessed for rehabilitation services?: Yes Family/Caregiver Present: No Subjective: OK to see pt per nursing. Pt in bed when PT arrived, pleasant and agreeable to PT session. Willing to sit in chair this AM. General: Overall Orientation Status: Within Normal Limits Orientation Level: Oriented X4 Vision: Impaired Vision Exceptions: Wears glasses for reading (driving pair) Hearing: Impaired Hearing Exceptions: Bilateral hearing aid, Hard of hearing/hearing concerns Pain: 04/07: no acute distress, had IV pain med prior to session Vitals: Vitals not assessed per clinical judgement, see nursing flowsheet Social/Functional History: Lives With: Spouse, Daughter Type of Home: House Home Layout: Two level, Bed/Bath upstairs, Able to Live on Main level with bedroom/bathroom, 1/2 bath on main level Home Access: Stairs to enter with rails Entrance Stairs - Number of Steps: 4 JOSE ALFREDO Entrance Stairs - Rails: Left Home Equipment: Walker - Rolling, Cane Prior Level of Assist for ADLs: Independent Prior Level of Assist for Homemaking: Needs assistance (shares tasks with ) Prior Level of Assist for Transfers: Independent Prior Level of Assist for Ambulation: Independent household ambulator, with or without device, Independent community ambulator, with or without device Has the patient had two or more falls in the past year or any fall with injury in the past year?: No Active B[employer] Mason: Yes Additional Comments: IND with use of no AD prior. OBJECTIVE: Range of Motion: Bilateral Lower Extremity: WFL Strength: Right Lower Extremity: Impaired - hx of hip sx, has not been the same '''' Left Lower Extremity: WFL Balance: Static Sitting Balance: Supervision, Stand By Assistance Dynamic Sitting Balance: Stand By Assistance Static Standing Balance: Contact Guard Assistance Pt seated on EOB, reports some dizziness/lightheadedness prior to transfers. Pt then reaching for emesis bag and was vomiting during session. Provided pt with a wash cloth and communicated with nursing about nausea meds and provided them during session. Assisted pt with donning brace during session. Bed Mobility: Rolling to Right: Stand By Assistance, X 1, with head of bed raised, with rail, with verbal cues Supine to Sit: Contact Guard Assistance, X 1, with head of bed raised, with rail, with verbal cues Educated on log roll technique, good demo Transfers: Sit to Stand: Contact Guard Assistance, X 1, cues for hand placement, with verbal cues Stand to Sit:Contact Guard Assistance, X 1, cues for hand placement, with verbal cues RW for support, slow transitions Ambulation: Contact Guard Assistance, Minimal Assistance, X 1, with cues for safety, with verbal cues Distance: 3 feet to chair, declined further distances due to not feeling well Surface: Level Tile Device: Rolling Walker Gait Deviations: Slow Paula, Decreased Step Length Bilaterally, Decreased Gait Speed, Narrow Base of Support, Unsteady Gait, and Increased reliance on assistive device Cues for safety, slow pace and cues required for sequencing Stairs: Not Tested Exercise: None, pt was not feeling well Functional Outcome Measures: [facility] (6 CLICK) BASIC MOBILITY AM-[facility] Inpatient Mobility Raw Score : 16 AM-[facility] Inpatient T-Scale Score : 40.78 Modified [place]: Premorbid Functional Status: Not Applicable Current Functional Status: Not Applicable ASSESSMENT: Activity Tolerance: Patient tolerance of treatment:Fair. Treatment Initiated: Treatment and education initiated within context of evaluation. Evaluation time included review of current medical information, gathering information related to past medical, social and functional history, completion of standardized testing, formal and informal observation of tasks, assessment of data and development of plan of care and goals. Treatment time included skilled education and facilitation of tasks to increase safety and independence with functional mobility for improved independence and quality of life. Assessment: Body Structures, Functions, Activity Limitations Requiring Skilled Therapeutic Intervention: Decreased functional mobility , Decreased endurance, Increased pain, Decreased balance, Decreased strength Assessment: Timur Francisco is a 74 y.o. male who presents with the deficits stated previously. Pt requires 1 person assist for functional tasks with use of walker for support. Pt cont to require skilled PT services to increase IND with functional tasks and progress towards PLOF to return to home environment safely. Therapy Prognosis: Good Requires PT Follow-Up: Yes Patient Education: . Patient Education Education Given To: Patient Education Provided: Role of Therapy, Plan of Care, Precautions, Transfer Training, Mobility Training Education Method: Verbal Education Outcome: Verbalized understanding, Demonstrated understanding, Continued education needed Plan: Current Treatment Recommendations: Strengthening, Balance training, Gait training, Functional mobility training, Neuromuscular re-education, Transfer training, Stair training, Endurance training, Equipment evaluation, education, & procurement, Patient/Caregiver education & training, Safety education & training, Therapeutic activities, Home exercise program General Plan: (6x O) Goals: Patient Goals : return home with Short Term Goals Time Frame for Short Term Goals: by discharge Short Term Goal 1: Pt will demo sit to/from stand transfers with S with RW to progress with mobility. Short Term Goal 2: Pt will amb for >75 feet with RW with S to progress with mobility. Short Term Goal 3: Pt will demo IND with bed mobility tasks with bed flat to progress with mobility. Short Term Goal 4: Pt will demo S for stair negotiation with rail for support to return home safely. Genetics Nurse Goals Time Frame for Genetics Nurse Goals : NA due to short ELOS Following session, patient left in safe position. Pt in bedside chair following session, all needs and call light in reach, alarm on. Department of Orthopedic Surgery Spine Service Attending Progress Note Subjective: POD#1 patient doing okay, c/o surgical site pain. Denies leg pain or N/T. He has not been out of bed yet. No BM. Mcgregor removed, no issues voiding. N/v last night, denies any this am Vitals VITALS: BP 120/72 Pulse 94 Temp 97.9 F (36.6 C) (Oral) Resp 16 Ht 1.829 m (6') Wt 90.5 kg (199 lb 9.6 oz) SpO2 91% BMI 27.07 kg/m 24HR INTAKE/OUTPUT: Intake/Output Summary (Last 24 hours) at 01/11/2025 0644 Last data filed at 01/11/2025 0539 Gross per 24 hour Intake 5065 ml Output 2975 ml Net 2090 ml URINARY CATHETER OUTPUT (Mcgregor): [REMOVED] Urinary Catheter 01/10/25 Smhke-Vqdtbjiyalm-Nxhqlv (mL): 150 mL DRAIN/TUBE OUTPUT: Closed/Suction Drain Left Back Accordion-Output (ml): 180 ml Closed/Suction Drain Right Back Accordion-Output (ml): 10 ml PHYSICAL EXAM: Orientation: alert and oriented to person, place and time Incision: dressing in place, clean, dry, intact Lower Extremity Motor : quadriceps, extensor hallucis longus, dorsiflexion, plantarflexion 5/5 bilaterally Lower Extremity Sensory: Intact L1-S1 Flatus: positive LABS: HgB: Lab Results Component Value Date/Time HGB 14.4 03/24/2013 10:53 AM Hemoglobin/Hematocrit: Lab Results Component Value Date/Time HGB 14.4 03/24/2013 10:53 AM HCT 41.4 03/24/2013 10:53 AM BMP: Lab Results Component Value Date/Time NA 140 03/24/2013 10:53 AM K 4.2 03/24/2013 10:53 AM CL 105 03/24/2013 10:53 AM CO2 31 03/24/2013 10:53 AM BUN 12 03/24/2013 10:53 AM CREATININE 0.88 03/24/2013 10:53 AM CALCIUM 9.1 03/24/2013 10:53 AM GFRAA >60 03/24/2013 10:53 AM LABGLOM >60 03/24/2013 10:53 AM GLUCOSE 98 03/24/2013 10:53 AM ASSESSMENT AND PLAN: Post operative day 1 status post HW removal, L1-5 decompression and fusion extension up to L2 1: Monitor labs and drain output 2: Activity Level: As tolerated. PT/OT, back brace when ambulating 3: Pain Control: Good 4: Discharge Planning: Pending 5: AM labs pending SHANIKA Hamilton Vital signs obtained. Two nurse skin assessment performed by Abril LACY and Ysabel LACY. Oriented to room. Policies and procedures for explained. All questions answered with no further questions at this time. Fall prevention and safety discussed with patient. Bed alarm on. Call light in reach. 1815- care assumed from Lizz LACY, pt resting in bed with eyes closed and occasional snoring, VSS, pt appears in no acute distress, pt states I'm okay when asked about pain then rests back down with eyes closed 1833- pt transported to floor in stable condition 1651 Patient arrived to PACU. Patient thrashing in bed and shouting 'pain'. Back dressings CDI with no drainage present. Ice packs applied. Hemovac drains x2 patent and compressed. Mcgregor catheter patent and draining. Arterial line intact. VSS. 1705 Patient appears in severe distress. Patient medicated with 50 mcg of Fentanyl at this time. 1710 Patient appears in severe distress. Patient medicated with 0.5 mg of Dilaudid at this time. 1715 Arterial line removed at this time without complication. 1725 Patient complains of pain 10/10. Patient medicated with 50 mcg of Fentanyl at this time. 1730 Patient complains of pain 10/10. Patient medicated with 0.5 mg of Dilaudid at this time. 1745 Patient resting in bed with eyes closed, but arouses to voice. Patient alert and oriented, but answers questions intermittently. When asked about pain, patient states 'I'm okay' and drifts back to sleep. Patient appears in minimal distress. Respirations even and unlabored. VSS. 1750 Patient meets criteria to discharge from PACU at this time. 1800 Report called to Ysabel James RN. 1815 Patient care taken over by John LACY. Patient admitted to [facility] room 10 with family at bedside. Bed in low position side rails up call light in reach. Patient denies questions at this time. Homa [phone] Called Sabina at [facility] for tracing for EKG she is faxing. Results of ECHO and Pulmonary functions test. She said looks like he hasn't schedule those test yet. Per sabina at Dr Escamilla did clear for surgery . Preliminary Discharge Planning Questionnaire Date of Surgery 01/10/[address] [facility] Having the proper help and care after surgery is very important to your recovery. Who will be able to help you at home when you are discharged from the hospital? spouse Name(s) Homa How many steps to enter your home? 4 Bathroom on first floor? 1/2 bath Bedroom on the first floor? No Do you have an elevated toilet seat to use at home? Yes (higher tolietseat) Do you have a walker to use at home? Total Joints - with wheels N/A Spine - with wheels No Have you been doing home exercises?yes *You will go home with some outpatient physical therapy, where [facility] you [facility] This typically will not start until after your post visit to your DrAida (3-4 weeks after surgery) * What home health agency would you like to use?[facility] Images from the original note were not included. Follow all instructions given by your physician Do not eat or drink anything after midnight prior to surgery(includes water, chewing gum, mints and ice chips) Sips of water am of surgery with allowed medications May brush teeth Do not smoke or chew tobacco, drink alcoholic beverages or use any illicit drugs for 24 hours prior to surgery Bring insurance info and photo ID Bring pertinent paperwork with you from Doctor or surgeons's office Wear clean comfortable, loose-fitting clothing No make-up, nail tristanian, jewelry, piercings, or contact lenses to be worn day of surgery No glue on dentures morning of surgery; you will be asked to remove them for surgery. Case for glasses. Shower the night before and the morning of surgery with cleansing soap provided or a liquid antibacterial soap, dry with new fresh clean towel after each shower, no lotions, creams or powder. Clean sheets and pillowcase on bed night before surgery Bring CPAP/BIPAP machine if you have one ( you may be charged if one is needed in recovery room ) No - pt could not tolerate machine does not use Do you have a DNR? Please Bring Healthcare Directive or Healthcare Power of Sanitation Supervisor in so we can scan it into your chart. No, not on file Report to [facility] on 2nd floor Make sure you have a responsible adult to drive you home after your surgery otherwise surgery will be cancelled. You must have a responsible adult to stay with you overnight after your procedure or your surgery may be cancelled. If you would become ill prior to surgery, please call the surgeon right away. We request that you limit to 2 visitors in pre-op area Call PAT [phone] for any questions Our pharmacy has a Meds to Beds program where they will deliver any new prescriptions you may have to your room before you leave. Our Pharmacy will clear it through your insurance; for example (same co pay). This enables you to take your new RX as soon as you need when you get home and avoids stop/wait delays on the way home. Please have a form of payment with you and have someone designated as your Pharmacy contact with their phone # as you may not feel well or still be under the influence of anesthesia. Please refer to the SSI-Surgical Site Infection Flyer you hopefully received in the mail-together we can prevent infections; signs and symptoms reviewed. When discharged be sure you understand how to care for your wound and that you have the Dr./office phone # to call if you have any concerns or questions about your wound. Spoke with [facility] Medical Records - requesting for pre-op testing results. Faxing labs, CXR and cardiac clearance to PAT. PAT call attempted, patient unavailable, left message to please call us back at your earliest convenience; [phone] documented in this encounter [facility] 01-13-2025 Hospital Discharge instructions Donita Arzate RN - 01/13/2025 7:23 AM EDT Wound Care: -Do not change dressing or shower until Home Health has removed the Hemovac drain -Once drain is removed, start dressing changes once daily until incision is clean and dry, then okay to leave open to air. -Do not submerge incision in water. Avoid hot-tubs and pools -Do not shower until the drain has been removed and try to keep incision as dry as possible. Restrictions: -Limit bending and twisting -No lifting over 10-15 lbs -Walk as much as tolerated, take short frequent walks throughout the day and try to take one long walk a day (start at 5 minutes and increase as tolerated) -Wear back brace whenever you are ambulating -Use walker until you feel safe -Continue restrictions and wearing the back brace until your first postop appointment Medications: -A pain medication (Percocet) and muscle relaxer (Flexeril) will be sent to your pharmacy. Take medications as directed -Pain medications can cause postoperative constipation. Take an over the counter stool softener while taking the pain medication -Okay to resume vitamins and supplements one week after surgery -Hold all NSAIDs (I.e. ibuprofen, motrin, Aleve, etc) for 6 months following surgery -Okay to resume aspirin 72 hours after surgery and all other blood thinners 5 days following surgery unless otherwise directed Postoperative appointment: -Please contact the office to schedule an appointment for 6 weeks after surgery if you are not already scheduled for an appointment - ext [phone] If any concerning symptoms, such as calf pain/swelling, new numbness/tingling or pain please the contact the office. If concerning symptoms including weakness, chest pain or difficulty breathing, go to the Emergency Department. Back Surgery Activity No lifting, pushing, or pulling Up as tolerated at least 3-4 times per day. Up walking-helps to decrease the risk of blood clots Wear basim hose as directed per your physician No driving until cleared by your physician Back Brace or abdominal binder If your physician prescribes a brace/abdominal binder, wear back brace at all times. May remove when in bed or bathing Follow all back precautions. Incision Care Keep back incision dry and intact. Apply clean dry dressing once a day. May shower if no drainage from your incision-unless otherwise directed per your physician No tub baths-no soaking of incision-no swimming No heaving lifting of more than 5 lbs/or as directed per your physician Diet Increase Fluid/Water intake, eat foods high in fiber; fruits and vegetables to help to prevent constipation Examples of foods high in fiber Vegetables All vegetables, especially asparagus, mathis sprouts, broccoli, [place] sprouts, cabbage, carrots, cauliflower, celery, corn, greens, green beans, green pepper, onions, peas, potatoes (with skin), snow peas, spinach, squash, sweet potatoes, tomatoes, zucchini For maximum fiber intake, eat the peels of fruits and vegetables just be sure to wash them well first. Fruits All fruits, especially apples, berries, grapefruits, mangoes, nectarines, oranges, peaches, pears, dried fruits (figs, dates, prunes, raisins) Choose raw fruits and vegetables over juice, cooked, or canned raw fruit has more fiber. Dried fruit is also a good source of fiber. Some of the common symptoms of a surgical site infection are: Symptoms in the area where the surgery took place: Redness Drainage Pus Pain Swelling Bad smell Prevention of surgical site infection: Make sure that your healthcare providers clean their hands before examining you - either with soap and water or an alcohol-based hand rubs. Family and friends who visit you should not touch the surgical wound or dressings. Family and friends should clean their hands with soap and water or an alcohol-based hand rub before and after visiting you. If you do not see them clean their hands, ask them to clean their hands. Wash hands frequently Do not allow pet to sleep in the bed with you until your incision is completely healed. Keep bed sheets clean If you are taking medications, follow these general guidelines: Take your medication as directed. Do not change the amount or the schedule. Do not stop taking them without talking to your doctor. Do not share them. Know what the results and side effects are. Report them to your doctor. Some drugs can be dangerous when mixed. Talk to a doctor or pharmacist if you are taking more than one drug. This includes rffw-ogf-ewahvls medication and herb or dietary supplements. Plan ahead for refills so you do not run out. Call Your Doctor If Any of the Following Occurs It is important for you to check your recovery once you leave the hospital. That way, you can alert your doctor to any problems immediately. If any of the following occur, call your doctor: Signs of infection, including fever, chills, redness, swelling, increasing pain, excessive bleeding, or discharge from the incision site The stitches or rashmi come apart at the incision site Nausea and/or vomiting that you can't control with the medications you were given after surgery, or which persist for more than two days after discharge from the hospital Pain that you can't control with the medications you've been given Cough shortness of breath, or chest pain Joint pain, fatigue, stiffness, rash, or other new symptoms Numbness, tingling, pain, or weakness, especially in the arms, hands, legs, or feet Pain, swelling in your feet, legs, or calves Loss of bladder or bowel function Pain, burning, urgency, frequency of urination, or persistent blood in the urine In case of an emergency call 911 Refer to medication education sheets for general information and possible side effects documented in this encounter [facility] 12-29-2024 Note [facility] Cardiology Clinic Note Chief Complaint: New patient here to establish care and surgery clearance. He will be having lumbar surgery with Dr. Ospina at [facility]. Scheduled for 01/10/2025. Had routine stress test, followed by nuclear stress test a few months ago at [facility]. Routine labs with lipid panel were drawn in November 2024. Had a heart cath in 2008 at [facility]. EKG was done yesterday at [facility] for pre-op evaluation. Denies chest pain, [...] Nuclear stress test with myocardial perfusion Order: [id number] Narrative Stress Combined Conclusion: Normal pharmacological myocardial [...] the tomographic myocardial perfusion imaging performed during (more content not included)... [facility] 12-20-2024 History of Present illness Narrative PHYSICIANS NOTE: CYSTOSCOPY PROCEDURE: December 20, 2024 [...] S/p cystoscopy 02/02/2019 (Trina) S/p TURBT 12/07/2019 (Wei) - path: benign s/p cystoscopy w/ cysview, [...] than add additional medications Nanci Carvajal MD Patient ID with (2) Identifiers, Verified by: Radha Yung RN Actual procedure/procedure scheduled: Yes Performing provider/scheduled provider: Yes Patient was roomed in: Q9- 10 C Software Developer offered:Patient accepts, visit chaperoned by Patient arrived [...] Education Session: None Instruction Provided To: Patient Bulb Sorter Present: not applicable Discipline: Nursing Learning Topic: [...] procedure match the source document(s) (e.g. consent, H&P, associated studies [imaging, pathology]) match the intended [...] been communicated to the patient or surrogate. documented in this encounter [facility] 12-20-2024 Note HNO ID: [id number] Author: NANCI CARVAJAL MD Service: ? Author [...] S/p cystoscopy 02/02/2019 ([facility]) S/p TURBT 12/07/2019 (Wei) - path: benign s/p cystoscopy w/ cysview, [...] than add additional medications Nanci Carvajal MD [facility] 12-20-2024 Note HNO ID: [id number] Author: RADHA YUNG RN Service: ? Author Type: Registered Nurse Type: Progress Notes Filed: 12/20/2024 14:07 Note Text: Patient ID with (2) Identifiers, Verified by: Radha Yung RN Actual procedure/procedure scheduled: Yes Performing provider/scheduled provider: Yes Patient was roomed in: Q9- 10 C Software Developer offered:Patient accepts, visit chaperoned by Patient arrived [...] Education Session: None Instruction Provided To: Patient Bulb Sorter Present: not applicable Discipline: Nursing Learning Topic: [...] been communicated to the patient or surrogate. [facility] 12-13-2024 History of Present illness Narrative Follow up Diagnosis: Actinic Keratosis Location: scalp, forehead Last visit: 1 month ago Symptoms: red, scaly Status: improving Current treatment: Efudex cream bid x 14 days- states he did not have much response- finished 1 week ago All pertinent medical history, medications, and allergies were reviewed. General Exam: alert, oriented to person, place, and time, normal affect, well appearing Unaccompanied A focused exam completed based on patient reported problems, see below: Skin Exam 1. ACTINIC KERATOSIS (2) Mid Parietal Scalp (2) Erythematous scaly papules - much improved since last visit Patient was counseled regarding these sun-induced growths [...] limited to risks of scarring, darker or supervisor hot dip plating pigmentary changes, recurrence, incomplete removal and infection. Method: Liquid nitrogen was used to treat the lesion(s) with two 5-10 second freeze-thaw cycles. Number of lesions treated: 3 Post-procedure instructions: Instructions were given orally and in writing. The office will be contacted if the lesion fails to resolve despite treatment, or if a side effect develops such as abnormal crusting, scabbing, redness or tenderness Discussed repeating Efudex cream bid x 14 days to scalp and face in the fall. Cryotherapy, skin lesion - Mid Parietal Scalp (2) Related Medications fluorouracil (Efudex) 5 % cream Apply to directed areas on the scalp and forehead twice a day x 14 days. Dispense 30 day supply but only use for 14 days. Next Visit: 1 year documented in this encounter [facility] 11-08-2024 History of Present illness Narrative Lesions: [...] limited to risks of scarring, darker or supervisor hot dip plating pigmentary changes, recurrence, incomplete removal and infection. [...] 4-6 weeks AK's documented in this encounter [facility] 09-07-2024 History of Present illness Narrative [...] and beverage provided. documented in this encounter [facility] 06-09-2024 Note [facility] Healthcare [facility] DIAGNOSIS COMMENT The case was reviewed in consultation with Dr. Rachel Boone, who concurs. [facility] 06-07-2024 Note The case was reviewe d in consultation with Dr. Rachel Boone, who concurs. [facility] Comment on above: Order Comment: Speci men Type: URINE SPECIMEN [facility]ing Facility[facility] Address: [address] [place] [address] Performed By: #### C YTONON #### [facility] CLIA [id number] [address] [place] [address] [place] [address] [place] 06-07-2024 Note HNO ID: [id number] Author: NANCI CARVAJAL MD Service: ? Author [...] CT urogram 6 months Nanci Carvajal MD [facility] 06-07-2024 History of Present illness Narrative [...] Yes Patient was roomed in: Q9- 06 C Software Developer offered:Patient declines Patient arrived in the room [...] Education Session: None Instruction Provided To: Patient Bulb Sorter Present: not applicable Discipline: Nursing Learning Topic: [...] Gregorio Higgins RN documented in this encounter [facility] 06-07-2024 Note HNO ID: [id number] Author: GREGORIO HIGGINS RN Service: ? Author Type: Registered Nurse Type: Progress Notes Filed: 06/07/2024 14:17 Note Text: Patient ID with (2) Identifiers, Verified by: Gregorio Higgins RN Actual procedure/procedure scheduled: Yes Performing provider/scheduled provider: Yes Patient was roomed in: Q9- 06 C Software Developer offered:Patient declines Patient arrived in the room [...] Education Session: None Instruction Provided To: Patient Bulb Sorter Present: not applicable Discipline: Nursing Learning Topic: [...] Visit completed when applicable. Gregorio Higgins RN [facility] 12-01-2023 History of Present illness Narrative [...] Plan of Care Visit completed when applicable. Flor Johnston LPN PHYSICIANS NOTE: CYSTOSCOPY PROCEDURE: December [...] Nanci Carvajal MD documented in this encounter [facility] 12-01-2023 Nurse Note Actual procedure/procedure scheduled: Yes Performing provider/scheduled provider: Yes Patient was roomed in: Q9- 09 C Software Developer offered:Patient declines Patient arrived in the room at: 1430 Patient ready for procedure: 1444 The procedure started at ( Time Only): 1448 The procedure ended at: 1451 Was the procedure delayed: No The patient left the procedure room at: 1458 Flor Johnston LPN PRE PROCEDURE ASSESSMENT- Cysto Procedure Indication: Cystoscopy Latex Allergy: No Allergies reviewed and updated. Yes Heart valve replacement: No Joint replacement: Yes, hip 2009 Back Office UA otained: yes PROCEDURE PREP-Cysto Patient ID with two(2)identifiers verified by: Flor Johnston LPN Pre-Procedure Antibiotics: None taken at home nor prior to procedure Patient Prep: Betadine Scrub to perineum and placement of Sterile Drape. COMPLETED Anesthetic Given:10 cc 2% Lidocaine jelly Flor Johnston LPN UNIVERSAL PROTOCOL / SAFETY CHECKLIST Procedure to be performed: Cystoscopy Sign in Communication: Completed Time Out: Team Confirms the Correct Patient, Correct Procedure, Correct Site and Site Marking, Correct Position (if applicable). Sign Out Discussion: Completed Flor Johnston LPN POST PROCEDURE NURSE ASSESSMENT Present along with physician during procedure exam. Flor Johnston LPN Instruction sheet given and reviewed and patient verbalizes understanding: yes Post Procedure Antibiotic: As Prescribed Current pain intensity is 0 on a 0-10 pain scale. Flor Johnston LPN AMBULATORY PATIENT EDUCATION THE FOLLOWING WAS EVALUATED Motivation To Learn: Interested Family/Significant Other Support: Unable to assess - Family not present Cognitive Ability: Alert/Oriented Method of Instruction: Individual instruction Written instruction/Handouts Verbal instruction The Following Influencing Factors Were Barriers To This Education Session: None The Following Physical Limitations Were Barriers To This Education Session: None Instruction Provided To: Patient Bulb Sorter Present: not applicable Discipline: Nursing Learning Topic: SURVIVAL SKILLS: Symptom Management Patient Evaluation: Verbalizes understanding: Yes Supplemental Material Given: Written Material Instructed By Flor Johnston LPN In Department Urology . [facility] 12-01-2023 Nurse Note Actual procedure/procedure scheduled: Yes Performing provider/scheduled provider: Yes Patient was roomed in: Q9- 09 C Software Developer offered:Patient declines Patient arrived in the room at: 1430 Patient ready for procedure: 1444 The procedure started at ( Time Only): 1448 The procedure ended at: 1451 Was the procedure delayed: No The patient left the procedure room at: 1458 Flor Johnston LPN PRE PROCEDURE ASSESSMENT- Cysto Procedure Indication: Cystoscopy Latex Allergy: No Allergies reviewed and updated. Yes Heart valve replacement: No Joint replacement: Yes, hip 2010 Back Office UA otained: yes PROCEDURE PREP-Cysto Patient ID with two(2)identifiers verified by: Flor Johnston LPN Pre-Procedure Antibiotics: None taken at home nor prior to procedure Patient Prep: Betadine Scrub to perineum and placement of Sterile Drape. COMPLETED Anesthetic Given:10 cc 2% Lidocaine jelly Flor Johnston LPN UNIVERSAL PROTOCOL / SAFETY CHECKLIST Procedure to be performed: Cystoscopy Sign in Communication: Completed Time Out: Team Confirms the Correct Patient, Correct Procedure, Correct Site and Site Marking, Correct Position (if applicable). Sign Out Discussion: Completed Flor Johnston LPN POST PROCEDURE NURSE ASSESSMENT Present along with physician during procedure exam. Flor Johnston LPN Instruction sheet given and reviewed and patient verbalizes understanding: yes Post Procedure Antibiotic: As Prescribed Current pain intensity is 0 on a 0-10 pain scale. Flor Johnston LPN AMBULATORY PATIENT EDUCATION THE FOLLOWING WAS EVALUATED Motivation To Learn: Interested Family/Significant Other Support: Unable to assess - Family not present Cognitive Ability: Alert/Oriented Method of Instruction: Individual instruction Written instruction/Handouts Verbal instruction The Following Influencing Factors Were Barriers To This Education Session: None The Following Physical Limitations Were Barriers To This Education Session: None Instruction Provided To: Patient Bulb Sorter Present: not applicable Discipline: Nursing Learning Topic: SURVIVAL SKILLS: Symptom Management Patient Evaluation: Verbalizes understanding: Yes Supplemental Material Given: Written Material Instructed By Flor Johnston LPN In Department Urology . documented in this encounter [facility] 10-20-2023 History of Present illness Narrative [...] ONCE A WEEK REMEBER YOUR STANDING LABS ktumnebs-zgp-pyrsmxd sulfate (One Daily Multi-Vit w-Mineral) 4.5 mg [...] Q-T Interval (corrected) QTC Calculation (Bezet) P Cut Bank R Cut Bank T Cut Bank IMPRESSION/PLAN Timur Francisco is a 72 y.o. [...] Red DO 10/20/23 documented in this encounter [facility] 07-21-2023 Evaluation note Encounter Date Diagnosis Assessment Notes Jun, Schatzki's ring (ICD-10 - Q39.4) The patient has no further dysphagia after the EGD with dilation. He should continue his Omeprazole & follow up in the office as needed Jun, Hiatal hernia (ICD-10 - K44.9) The patient has a small hiatla hernia with a schatzki's ring above this. [facility] 12-05-2023 History of Present illness Narrative* [...] WNL Nanci Carvajal MD [facility]* Brisa Nieto RN - 06/02/2023 1:29 PM EST Actual procedure/procedure scheduled: Yes Performing provider/scheduled provider: Yes Patient was roomed in: Q9- 06 C Software Developer offered:Patient accepts, visit chaperoned by Patient arrived [...] (if applicable). Sign Out Discussion: Completed Brisa Gerson, RN POST PROCEDURE NURSE ASSESSMENT Present along [...] Education Session: None Instruction Provided To: Patient Bulb Sorter Present: not applicable Discipline: Nursing Learning Topic: SURVIVAL SKILLS: Complication Prevention Symptom Management Patient Evaluation: Verbalizes understanding: Yes Supplemental Material Given: Written Material Instructed By Brisa Nieto RN In Department Urology . [facility] History of Present illness Narrative* Becky [...] and Intact, Site disposition Discontinued SIGNED BY: ZACHARY [place]) June 02, 2023 12:50 PM * Diane [...] 2023 TIME: 12:36 PM [facility] Note[facility]EDURE: US KIDNEYS BLADDER DATE: 11/22/2022 [...] Electronically authenticated by: ALENA SHANNON Date: 2022-11-22 16:50[facility]04[facility] History of Present illness Narrative* Blanche Naranjo [...] scope Nanci Carvajal MD [facility] Nurse Note* Blanche Naranjo Ma - 10/21/2022 3:02 PM EDT Actual procedure/procedure scheduled: Yes Performing provider/scheduled provider: Yes Patient was roomed in: Q9- 08 C Software Developer offered:Patient declines Patient arrived in the room [...] Education Session: None Instruction Provided To: Patient Bulb Sorter Present: not applicable Discipline: Nursing Learning Topic: SURVIVAL SKILLS: Symptom Management Patient Evaluation: Verbalizes understanding: Yes Supplemental Material Given: Written Material Instructed By Blanche Naranjo Ma In Department Urology . [facility]23 Miscellaneous Notes* Telephone Encounter - Nanci Carvajal MD - 07/16/2022 4:23 PM EST July 16, 2022 4:23 PM Called patient to discuss urine cytology results. Discussed results as in epic. Recommended repeat cystoscopy 3 months. All questions answered. Nanci Carvajal MD [facility] History of Present illness Narrative* Natalee [...] months Nanci Carvajal MD [facility] Nurse Note* Natalee Garcia RN - [...] Education Session: None Instruction Provided To: Patient Bulb Sorter Present: not applicable Discipline: Nursing Learning Topic: SURVIVAL SKILLS: Complication Prevention Patient Evaluation: Verbalizes understanding: Yes Supplemental Material Given: Written Material Instructed By Rommel Garcia RN In Department Urology . [facility] in [facility] Evaluation note* Encounter Date Diagnosis Assessment Notes Treatment Notes Treatment Clinical Notes Apr, Esophageal diverticulum (ICD-10 - Q39.6) Apr, Dysphagia (ICD-10 - R13.10) Patient to call if symptoms worsen or return Continue Omeprazole Follow up 1 year [facility] Other 11-17-2022 Miscellaneous Notes* Allied Health - [...] 2022 TIME: 8:28 AM documented in [facility] Miscellaneous Notes* Telephone Encounter - Nanci [...] this. All questions answered. documented in this [facility]10-24-2022 Miscellaneous Notes* Telephone Encounter - Hallie Matson [...] Matson RN Triage Nurse Department of [facility] History of Present illness Narrative* Nacni Carvajal MD - 04/01/2022 3:30 PM EDT [...] applicable. Ameena Stewart RN [facility] Nurse Note* Ameena Stewart RN - [...] None Instruction Provided To: Patient and Spouse Bulb Sorter Present: not applicable Discipline: Nursing Learning Topic: SURVIVAL SKILLS: Symptom Management Patient Evaluation: Verbalizes understanding: Yes Supplemental Material Given: Written Material Instructed By Ameena Stewart RN In Department Urology . [facility] in [facility] Evaluation note* Encounter Date Diagnosis Assessment Notes Treatment Notes Treatment Clinical Notes Nov, Esophageal diverticulum (ICD-10 - Q39.6) REASSURANCE IF SYMPTOMS RETURN PT TO CALL FOR ESOPHAGEAL MANOMETRY AND REPEAT EGD WITH DILATION DECREASE AMITRYPTYLINE TO ONCE DAILY F/U HERE 3 MONTHS [facility] Other 05-10-2022 Miscellaneous Notes* Telephone Encounter - Bing Schmitt RN - 11/05/2021 2:17 PM EDT Left a message on the cell voicemail concerning 11/07 appt to Urol nurse. [facility] in [facility] History of Present illness Narrative* Eze [...] well. Eze Carreon RN documented in this [facility]2022 Miscellaneous Notes* Telephone Encounter - Nanci [...] answered. Nanci Carvajal MD [facility] in this [facility]21 History of Present illness Narrative* Jose Francisco Villalpando MD - 11/27/2020 11:28 AM EDT [facility] [address] [facility] [address] [facility] [phone] Timur Francisco is a 69 y.o. male [...] Jose Francisco Villalpando MD documented in this [id number] History of Present illness Narrative* Darlene Calderon [...] speak with Dr. Villalpando. [facility]* Diagnosis Spinal stenosis of lumbar region without neurogenic claudication- Primary Lumbar degenerative disc disease [facility] Diagnosis Right hip pain Pain in joint, pelvic region and thigh documented in this encounter [facility] Phone: evaluation note* Diagnosis Malignant neoplasm of urinary bladder, unspecified site (HCC)- Primary [facility] Diagnosis Viral upper respiratory tract infection with cough Acute upper respiratory infections of unspecified site documented in this encounter [employer] Work Phone: evaluation note* Diagnosis History of bladder cancer- Primary Personal history of malignant neoplasm of bladder Malignant neoplasm of urinary bladder, unspecified site (HCC) [facility] Diagnosis Suspected UTI- Primary documented in this encounter [facility] note* Diagnosis Malignant neoplasm of urinary bladder, unspecified site (HCC)- Primary Abnormal urine cytology Other nonspecific finding on examination of urine documented in this encounter [facility] noteNo assessment information [facility] Work Phone: Evaluation note* Diagnosis Encounter for follow-up surveillance of bladder cancer- Primary Unspecified follow-up examination documented in this encounter [facility] note* Diagnosis Encounter for follow-up surveillance of bladder cancer- Primary Unspecified follow-up examination History of bladder cancer Personal history of malignant neoplasm of bladder documented in this encounter [facility] noteNo [employer] Other Evaluation note* Diagnosis Malignant neoplasm of urinary bladder, unspecified site (HCC) History of bladder cancer Personal history of malignant neoplasm of bladder documented in this encounter [facility] note* Diagnosis Onset Date Resolution Status Dysphagia [facility] Work Phone: [email or web address] note* Diagnosis Encounter for follow-up surveillance of bladder cancer- Primary Unspecified follow-up examination History of bladder cancer Personal history of malignant neoplasm of bladder documented in this encounter [facility] note* Diagnosis Malignant neoplasm of urinary bladder, unspecified site (HCC) documented in this encounter [facility] note* Diagnosis Pre-operative examination- Primary Unspecified pre-operative examination Traction detachment of right retina Traction detachment of retina Rheumatoid arthritis, involving unspecified site, unspecified whether rheumatoid factor present (HCC) Essential (primary) hypertension Unspecified essential hypertension Gastroesophageal reflux disease, unspecified whether esophagitis present JOHNATHON (obstructive sleep apnea) Obstructive sleep apnea (adult) (pediatric) documented in this encounter [facility] note* Diagnosis Encounter for follow-up surveillance of bladder cancer- Primary Unspecified follow-up examination History of bladder cancer Personal history of malignant neoplasm of bladder documented in this encounter [facility] note* Diagnosis Encounter for follow-up surveillance of bladder cancer- Primary Unspecified follow-up examination History of bladder cancer Personal history of malignant neoplasm of bladder documented in this encounter [facility] note* Diagnosis Intermittent chest pain Chest pain, unspecified documented in this encounter [facility] note* Diagnosis Chest pain, unspecified type documented in this encounter [facility] note* Diagnosis Other atopic dermatitis- Primary Actinic keratosis Rash and other nonspecific skin eruption documented in this [facility]* Diagnosis Actinic keratosis- Primary documented in this [facility]* Diagnosis Encounter for follow-up surveillance of bladder cancer- Primary Unspecified follow-up examination History of bladder cancer Personal history of malignant neoplasm of bladder documented in this encounter [facility] note* Diagnosis Lumbar stenosis with neurogenic claudication- Primary Spinal stenosis, lumbar region, with neurogenic claudication documented in this encounter [facility] note* Diagnosis History of right hip replacement- Primary Weakness of right lower extremity documented in this encounter [facility] general Narrative - Reported* Type Description Date Surgical History CHOLECYSTECTOMY Surgical History APPENDECTOMOY Surgical History HERNIA REPAIR Affirm Other Hospital Discharge instructions Additional Instructions DISCHARGE [...] if you have any problems. -Office number [phone] Phone: reason for referral (narrative)No reason for referral information availableTogus [facility] Work Phone: reason for visit NarrativePT HERE AT REQUEST OF DR ROSALINA DE ANDA EVALUATION AND TREATMENT OF ESOPHAGEAL DIVERTICULUM / [place]SPHAGIAP[place] [employer] Other reason for visit Narrative* (Routine) - Open Specialty Diagnoses / Procedures Referred By Batsheva fritz Referred To Contact Cardiology Diagnoses Chest pain, unspecified type Intermittent chest pain Procedures Nuclear stress test with myocardial perfusion Danette Muniz, PERIOPERATIVE MANAGER - FACILITY SPECIALIST [address] [id number] Phone: tel:[phone] fax: Referral ID Status Reason Start Date Expiration Date Visits Re quested Visits Authorized [id number] Open 08/30/2024 08/30/2025 3 3 [facility] for visit Narrative* (Routine) - Open Specialty Diagnoses / Procedures Referred By Batsheva fritz Referred To Contact Cardiology Diagnoses Chest pain, unspecified type Intermittent chest pain Procedures Nuclear stress test with myocardial perfusion Danette Muniz, PERIOPERATIVE MANAGER - FACILITY SPECIALIST [address] [place] [address] Phone: tel:[phone] fax: Referral ID Status Reason Start Date Expiration Date Visits Re quested Visits Authorized [id number] Open 08/30/2024 08/30/2025 3 3 [facility] Narrative* Auth/Cert Specialty Diagnoses / Procedures Referred By Batsheva t Referred To Contact Diagnoses Spinal stenosis of lumbar region, unspecified whether neurogenic claudication present Procedures [place] ARTHRODESIS POSTERIOR/PSTLAT TQ 1NTRSPC LUMBAR [place] ARTHRODESIS PST/PSTLAT TQ 1NTRSPC EA ADDL NTRSPC [place] BEATTY FACETECTOMY & FORAMOTOMY 1 VRT SGM LUMBAR [place] BEATTY FACETECTOMY&FORAMOT 1 VRT SGM EA ADDL SGM [place] POSTERIOR SEGMENTAL INSTRUMENTATION 3-6 VRT SEG [place] AUTOGRAFT SPINE SURGERY LOCAL FROM SAME INCISION HARDWARE REMOVAL L5-S1, L1-L5 DEPCOMPRESSION, L2-5 POSTERIOR FUSION HARDWARE REMOVAL L5-S1, L1-L5 DEPCOMPRESSION, L2-5 POSTERIOR FUSION HARDWARE REMOVAL L5-S1, L1-L5 DEPCOMPRESSION, L2-5 POSTERIOR FUSION HARDWARE REMOVAL L5-S1, L1-L5 DEPCOMPRESSION, L2-5 POSTERIOR FUSION HARDWARE REMOVAL L5-S1, L1-L5 DEPCOMPRESSION, L2-5 POSTERIOR FUSION HARDWARE REMOVAL L5-S1, L1-L5 DEPCOMPRESSION, L2-5 POSTERIOR FUSION Casper Ospina MD [address] [place] [address] [place] [address] Phone: tel: fax: [facility] [address] [place] [address] Referral ID Status Reason Start Date Expiration Date Visits Re quested Visits Authorized [id number] 1 1 [facility] [employer] [facility] Summary Purpose Family History No Family History Records Found Relationship Condition Age at Onset Recorded Date/T marjan Not Specified Cerebrovascular accident (CVA) Unknown brother Cerebrovascular accident (CVA) Unknown Relationship Condition Age at Onset Recorded Date/T marjan mother Cerebrovascular accident (CVA) Unknown brother Cerebrovascular accident (CVA) Unknown Advance Directives No Advanced Directives Records FoundDocuments on File Type Date Recorded 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 Advance Directives and Livin g Will 02/07/2020 3:27 PM Documents on File Type Date Recorded 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 ACP-Advance Directive ACP-Power of Sanitation Supervisor Latest Code Status on File Code Status Date Activated Date Inactivated Comments Full Code 04/07/2013 1:10 PM 04/07/2013 6:05 PM Documents on File Type Date Recorded 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. 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 Advance Directive(s) 05/14/2018 2:34 PM Advance Directive Response Recorded Date/ Time Advance Directives No July 02, 2022 2:58pm Advance Directive Response Recorded Date/ Time Advance Directives No July 02, 2022 1:58pm Date Activated Date Inactivated Comments 04/07/2013 1:10 PM 04/07/2013 6:05 PM Documents on File Type Date Recorded 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 [address] [facility] [phone] Timur Francisco is a 69 y.o. male [...] standing walking are aggravating he has had child care without improvement has been on tivj-peb-ruzzmmt medications without improvement he has had an [...] Cunningham, PT - 02/15/2020 3:00 PM EDT [facility] Outpatient Physical Therapy Evaluation Date: [...] proper posture and lifting following back education it security consulting director goals Time Frame for it security consulting director goals : 12 group home goal 1: Decrease pain back and legs 2/10 at worst x3 days it security consulting director goal 2: Improve functional mobility with Oswestry score < 8/45 Patient's Goal: Be rid of back pain Timed Code Treatment Minutes: 15 Minutes Total Treatment Time: 45 Time In: 15:05 Time Out: 15:50 Shelley Cunningham, PT Date: 02/15/2020 documented in this encounter* Linda Gardner - 02/21/2020 9:45 AM EDT [facility] Outpatient Physical Therapy Daily Note [...] proper posture and lifting following back education Genetics Nurse Goals - Time Frame for group home goals : 12 it security consulting director goal 1: Decrease pain back and legs 2/10 at worst x3 days group home goal 2: Improve functional mobility with Oswestry score < 8/45 Post Treatment Pain: 6/10 Time In: 0945 Time Out : 1020 Timed Code Treatment Minutes: 35 Minutes Total Treatment Time: 35 Minutes Linda Gardner CHAIRMAN & CEO Date: 02/21/2020 documented in this encounter* Linda Gardner - 02/23/2020 9:45 AM EDT [facility] Outpatient Physical Therapy Daily Note [...] proper posture and lifting following back education Long-Term Goals - Time Frame for group home goals : 12 group home goal 1: Decrease pain back and legs 2/10 at worst x3 days it security consulting director goal 2: Improve functional mobility with Oswestry score < 8/45 Post Treatment Pain: 4/10 Time In: 0940 Time Out : 1015 Timed Code Treatment Minutes: 35 Minutes Total Treatment Time: 35 Minutes Linda Gardner CHAIRMAN & CEO Date: 02/23/2020 documented in this encounter* Linda Gardner - 02/28/2020 9:45 AM EDT [facility] Outpatient Physical Therapy Daily Note [...] proper posture and lifting following back education Genetics Nurse Goals - Time Frame for it security consulting director goals : 12 it security consulting director goal 1: Decrease pain back and legs 2/10 at worst x3 days group home goal 2: Improve functional mobility with Oswestry score < 8/45 Post Treatment Pain: 10/10 Time In: 0945 Time Out : 1025 Timed Code Treatment Minutes: 40 Minutes Total Treatment Time: 40 Minutes Linda Gardner CHAIRMAN & CEO Date: 02/28/2020 documented in this encounter* Linda Gardner - 03/02/2020 10:30 AM EDT [facility] Outpatient Physical Therapy Daily Note Date: 03/02/2020 Patient Name: Timur Francisco : 1950 (69 y.o.) Referring Practitioner: Dr. Jose Francisco Villalpando Referral Date : 02/07/20 Diagnosis: Sprain of ligament lumbosacral joint Treatment Diagnosis: Back Pain Onset Date: 02/07/20 PT Insurance Information: [employer]/ Medicare Total # of Visits Approved: 12 [...] proper posture and lifting following back education Genetics Nurse Goals - Time Frame for group home goals : 12 group home goal 1: Decrease pain back and legs 2/10 at worst x3 days it security consulting director goal 2: Improve functional mobility with Oswestry score < 8/45 Post Treatment Pain: 6/10 Time In: 1030 Time Out : 1110 Timed Code Treatment Minutes: 40 Minutes Total Treatment Time: 40 Minutes Linda Gardner CHAIRMAN & CEO Date: 03/02/2020 documented in this encounter* Linda Gardner Christina - 03/07/2020 9:45 AM EDT [facility] Outpatient Physical Therapy Daily Note [...] a creeper on the ground etc. 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 assurance supervisor body training with crate with good body mechanics [...] proper posture and lifting following back education-met Long-Term Goals - Time Frame for group home goals : 12 it security consulting director goal 1: Decrease pain back and legs 2/10 at worst x3 days group home goal 2: Improve functional mobility with Oswestry score < 8/45 Post Treatment Pain: 5/10 Time In: 0945 Time Out : 1025 Timed Code Treatment Minutes: 40 Minutes Total Treatment Time: 40 Minutes Linda Gardner CHAIRMAN & CEO Date: 03/07/2020 documented in this encounter* Shelley Cunningham, PT - 03/09/2020 9:45 AM EDT [facility] Outpatient Physical Therapy Daily Note [...] proper posture and lifting following back education-met Genetics Nurse Goals - Time Frame for group home goals : 12 group home goal 1: Decrease pain back and legs 2/10 at worst x3 days group home goal 2: Improve functional mobility with Oswestry score < 8/45 Post Treatment Pain: 6/10 Time In: 9:48 Time Out : 10:28 Timed Code Treatment Minutes: 40 Minutes Total Treatment Time: 40 Minutes Shelley Cunningham PT Date: 03/09/2020 documented in this encounter* Shelley Cunningham, PT - 03/14/2020 9:45 AM EDT [facility] Outpatient Physical Therapy Daily Note [...] 10/10 in back ever since yesterday at [facility] for medical appointment. He reports he [...] proper posture and lifting following back education-met Long-Term Goals - Time Frame for group home goals : 12 it security consulting director goal 1: Decrease pain back and legs 2/10 at worst x3 days it security consulting director goal 2: Improve functional mobility with Oswestry score < 8/45 Post Treatment Pain: 10/10 Time In: 9:45 Time Out : 10:15 Timed Code Treatment Minutes: 30 Minutes Total Treatment Time: 30 Minutes Shelley Cunningham, PT Date: 03/14/2020 documented in this encounter* Linda Breaux - 03/16/2020 9:45 AM EDT [facility] Date: 03/16/2020 Patient Name: Timur Francisco : 1950 Pt Cancelled Appt due to no reason. Linda Breaux Date: 03/16/2020 documented in this encounter* Jose Francisco Villalpando MD - 05/15/2020 1:39 PM EST [facility] [address] ([address]) [facility] [address] [facility] [phone] Timur Francisco is a 69 y.o. male [...] and reduces to 2 mm with extension. Leis-ga-aqmwvdyw degenerative spondylosis and facet osteoarthropathy. DISC SPACES: [...] 11:13 AM EST PROCEDURE NOTE Name: Timur Faina [place] Date of Procedure: @DATE@ Surgeon: Jose Francisco [...] AM EST [facility] [address] ([address]) [facility] [address] [facility] [phone] Timur Francisco is a 69 y.o. [...] Villalpando MD documented in this encounter* Jose Farncisco Villalpando MD - 05/14/2020 11:26 AM EST [facility] [address] ([address]) [facility] [address] [facility] [phone] Timur Francisco is a 69 y.o. male [...] [place] [address] REF#[id number]. documented in this encounter Assessments Diagnosis Back [...] Spine Without Contrast Jose Francisco Villalpando MD [address] [place] [address] Specialty Diagnoses / Procedures Referred By Contac t Referred To Contact CT IMAGING Diagnoses Malignant neoplasm of urinary bladder, unspecified site (HCC) History of bladder cancer Procedures CT UROGRAM WO/W IVCON CT ABD & PELVIS W/O CONTRST 1+ BODY REGNanci De La Cruz MD [address] [place] [address] Ct Imaging Referral ID Status Reason Start Date Expiration Date Visits Requested Visits Authorized [id number] Authorized Auto-Generat ed Referral 07/04/2022 05/03/2023 1 1 Specialty Diagnoses / Procedures Referred By Contac t Referred To Contact CT IMAGING Diagnoses Malignant neoplasm of urinary bladder, unspecified site (HCC) Procedures CT UROGRAM WO/W IVCON CT ABD & PELVIS W/O CONTRST 1+ BODY Nanci Dyer MD [address] [place] [address] Ct Imaging Referral ID Status Reason Start Date Expiration Date Visits Requested Visits Authorized [id number] Pending Review Auto-Generat ed Referral 05/02/2022 06/01/2023 1 1 Specialty Diagnoses / Procedures Referred By Contac t Referred To Contact CT IMAGING Diagnoses Malignant neoplasm of urinary bladder, unspecified site (HCC) History of bladder cancer Procedures CT UROGRAM WO/W IVCON CT ABD & PELVIS W/O CONTRST 1+ BODY Nanci Dyer MD [address] [place] [address] [place] [address] Referral ID Status Reason Start Date Expiration Date V isits Requested Visits Authorized [id number] Closed Auto-Generate d Referral 07/04/2022 05/03/2023 1 1 Specialty Diagnoses / Procedures Referred By Contac t Referred To Contact CT IMAGING Diagnoses Malignant neoplasm of urinary bladder, unspecified site (HCC) Procedures CT UROGRAM WO/W IVCON CT ABD & PELVIS W/O CONTRST 1+ BODY Nanci Dyer MD [address] [place] [address] [place] [address] Referral ID Status Reason Start Date Expiration Date V isits Requested Visits Authorized [id number] Closed Auto-Generate d Referral 05/28/2023 02/19/2024 1 1 Specialty Diagnoses / Procedures Referred By Contac t Referred To Contact CT IMAGING Diagnoses History of bladder cancer Procedures CT UROGRAM WO/W IVCON CT ABD & PELVIS W/WO CONTRST 1+ BODY REGELBA Silsbee, Nanci, MD [address] [place] [address] [place] [address] Referral ID Status Reason Start Date Expiration Date Visits Requested Visits Authorized [id number] New Request Auto-Generat ed Referral 12/06/2024 07/07/2025 1 1 Specialty Diagnoses / Procedures Referred By Contac t Referred To Contact Cardiology Diagnoses Intermittent chest pain Procedures Exercise stress test Danette Muniz, PERIOPERATIVE MANAGER - FACILITY SPECIALIST [address] [place] [address] Referral ID Status Reason Start Date Expiration Date V isits Requested Visits Authorized [id number] Pending Review 08/15/2024 08/15/2025 1 1 Medications Administered Section Inactive Administered Medications - up to 3 most recent administrations Medication Order MAR Action Action Date Dose Rate Site bcg 50 mg in NaCl 0.9% 50 mL 50 mg, INTRAVESICAL, ONCE, 1 dose, On Thu10/24/21 at 0830, Instill into bladder via catheter and retain for 120 minutes, followed by bladder drainage Hazardous Chemotherapy Drug: Use appropriate PPE. Protect from Light., AMB MED ORDERS Given 10/24/2021 8:40 AM EDT 50 mg Other lidocaine urojet 2 % 11 mL topical gel (XYLOCAINE, GLYDO) 11 mL, OTHER, ONCE, 1 dose, On Thu10/24/21 at 0830, FOR EXTERNAL USE ONLY Intravesical [...] FOOT PAIN August 30, 2024 11:5 3am Chief Complaint Admit Date soof December 13, 2024 10:5 2am Unknown January 03, 2025 10:37 am Additional Source Comments (unrecognized sect ion and content) No Status Records FoundNo Status Records FoundNo Status Records FoundNo Status Records FoundNo Status Records FoundNo Status Records FoundNo Status Records FoundNo Status Records FoundNo Status Records FoundNo Status Records FoundNo Status Records Found INFORMATION SOURCE (unrecogn ized section and content) DATE CREATED AUTHOR 12/08/2019 [facility] DATE CREATED AUTHOR AUTHOR'S ORGANIZ ATION 05/18/2022 [facility] DATE CREATED AUTHOR AUTHOR'S ORGANIZ ATION 12/05/2022 [facility] DATE CREATED AUTHOR AUTHOR'S ORGANIZ ATION 10/21/2023 [facility] DATE CREATED AUTHOR AUTHOR'S ORGANIZ ATION 08/25/2024 [facility] DATE CREATED AUTHOR AUTHOR'S ORGANIZ ATION 09/12/2024 [facility] DATE CREATED AUTHOR AUTHOR'S ORGANIZ ATION 12/25/2024 [facility] DATE CREATED AUTHOR AUTHOR'S ORGANIZ ATION 01/01/2025 [facility] DATE CREATED AUTHOR AUTHOR'S ORGANIZ ATION 01/22/2025 [facility] DATE CREATED AUTHOR AUTHOR'S ORGANIZ ATION 02/14/2025 [facility] DATE CREATED AUTHOR AUTHOR'S ORGANIZ ATION 03/24/2025 [facility] Reason for Visit (unrecogniz ed section and content) Reason Comments Pain Status Reason Specialty Diagnoses / Procedures Referred By Contact Referred To Contact Closed Orthopedic Surgery Diagnoses Back pain, unspecified back location, unspecified back pain laterality, unspecified chronicity Isauro Poe MD [address] [place] [id number] Fax: Jose Francisco Villalpando MD [address] [place] [phone] Status Reason Specialty Diagnoses / Procedures Referre d By Contact Referred To Contact Closed Radiology Diagnoses Spondylolisthesis of lumbar region Back pain, unspecified back location, unspecified back pain laterality, unspecified chronicity Procedures MR Lumbar Spine Without Contrast Jose Francisco Villalpando MD [address] [place] [address] Reason Comments Back Pain Reason Comments Imaging Results MRI Pain Reason Comments Follow-up talk about epidural Reason Comments [employer] - Other Reason Comments Malignant neoplasm of urinary bladder, u nspecified site (HCC Reason Comments Appointment Cancelled Reason Comments Returning Patient's Call Reason Comments [employer] - Other Reason Comments Results Specialty Diagnoses / Procedures Referred By Contac t Referred To Contact CT IMAGING Diagnoses Malignant neoplasm of urinary bladder, unspecified site (HCC) History of bladder cancer Procedures CT UROGRAM WO/W IVCON CT ABD & PELVIS W/O CONTRST 1+ BODY Nanci Dyer MD [address] [facility] [address] [place] [id number] [facility] [place] [address] Referral ID Status Reason Start Date Expiration Date V isits Requested Visits Authorized [id number] Closed Auto-Generate d Referral 07/04/2022 05/03/2023 [address] Specialty Diagnoses / Procedures Referred By Contac t Referred To Contact CT IMAGING Diagnoses Malignant neoplasm of urinary bladder, unspecified site (HCC) Procedures CT UROGRAM WO/W IVCON CT ABD & PELVIS W/O CONTRST 1+ BODY Nanci Dyer MD [id number] [facility] [place] [address] Referral ID Status Reason Start Date Expiration Date V isits Requested Visits Authorized [id number] Closed Auto-Generate d Referral 05/28/2023 02/19/2024 1 1 Reason Comments Perioperative Medical Evaluation H33.41 Reason Comments Cystoscopy-1 Reason Comments Cystoscopy-1 Specialty Diagnoses / Procedures Referred By Contac t Referred To Contact Cardiology Diagnoses Intermittent chest pain Procedures Exercise stress test Danette Muniz, PERIOPERATIVE MANAGER - FACILITY SPECIALIST [address] [place] [address] Referral ID Status Reason Start Date Expiration Date V isits Requested Visits Authorized [id number] Pending Review 08/15/2024 08/15/2025 1 1 Reason Comments Suspicious Skin Lesion Reason Comments Follow-up Care Teams (unrecognized sec tion and content) Physics Technician Relationship Specialty Start Date End Date Isauro Poe MD [address] [place] [address] PCP - General 06/16/12 Physics Technician Relationship Specialty Start Date End Date Isauro Poe [address] [place] [address] (Fax) PCP - General Family Practice 11/04/18 Wai Matson Jr. [address] [place] [address] Referring Urology 04/23/18 Physics Technician Relationship Specialty Start Date End Date Isauro Poe [address] [place] [address] (Fax) PCP - General Family Practice 11/04/18 Wai Matson Jr. [address] [place] [id number] Referring Urology 04/23/18 Physics Technician Relationship Specialty Start Date End Date Isauro Poe [address] [place] [address] (Fax) PCP - General Family Practice 11/04/18 Wai Matson Jr. [address] [place] [id number] Referring Urology 04/23/18 Physics Technician Relationship Specialty Start Date End Date Isauro Poe MD [address] [place] [address] (Fax) PCP - General Family Practice 11/04/18 Wai Matson Jr. [address] [place] [address] Referring Urology 04/23/18 Physics Technician Relationship Specialty Start Date End Date Isauro Poe MD [address] [place] [address] PCP - General 06/16/12 Physics Technician Relationship Specialty Start Date End Date Isauro Poe MD [address] [place] [phone] (Fax) PCP - General Family Medicine 11/04/18 Wai Matson Jr. [address] [place] [phone] Referring Urology 04/23/18 Physics Technician Relationship Specialty Start Date End Date Isauro Poe MD [address] [place] [address] (Fax) PCP - General Family Medicine 11/04/18 Wai Matson Jr. [address] [place] [phone] Referring Urology 04/23/18 Physics Technician Relationship Specialty Start Date End Date Isauro Poe MD [address] [place] [address] (Fax) PCP - General Family Medicine 11/04/18 Wai Matson Jr. [address] [place] [phone] Referring Urology 04/23/18 Team Status: Inactive Member Role Status Dates Zhou Fischer MD Attending Provider Active Physics Technician Relationship Specialty Start Date End Date Isauro Poe MD [address] [place] [address] (Fax) PCP - General Family Medicine 11/04/18 Wai Matson Jr. [address] [place] [phone] Referring Urology 04/23/18 Physics Technician Relationship Specialty Start Date End Date Isauro Poe MD [address] [place] [address] (Fax) PCP - General Family Medicine 11/04/18 Wai Matson Jr. [address] [place] [phone] Referring Urology 04/23/18 Physics Technician Relationship Specialty Start Date End Date Isauro Poe MD [address] [place] [address] (Fax) PCP - General Family Medicine 11/04/18 Wai Matson Jr. [address] [place] [phone] Referring Urology 04/23/18 Team Status: Active Member Role Status Dates PHYSICIAN NO FAMILY Primary Care Provider Active Team Status: Inactive Member Role Status Dates PHYSICIAN NO FAMILY Primary Care Provider Active Zhou Fischer MD Attending Provider Active Physics Technician Relationship Specialty Start Date End Date Isauro Poe MD [address] [place] [address] (Fax) PCP - General Family Medicine 11/04/18 Wai Matson Jr. [address] [place] [address] Referring Urology 04/23/18 Team Status: Active Member [...] Active Zhou Fischer MD Attending Provider Active Physics Technician Relationship Specialty Start Date End Date Isauro Poe MD [address] [place] [address] (Fax) PCP - General Family Medicine 11/04/18 Wai Matson Jr. [address] [place] [address] Referring Urology 04/23/18 Physics Technician Relationship Specialty Start Date End Date Isauro Poe MD [address] [place] [address] (Fax) PCP - General Family Medicine 11/04/18 Wai Matson Jr. [address] [place] [address] Referring Urology 04/23/18 Team Status: Inactive Member [...] July 21, 2023 End: July 21, 2023 Physics Technician Relationship Specialty Start Date End Date Isauro Poe MD (Fax) PCP - General Family Medicine 02/07/20 Team Status: Inactive Member Role Status Dates Danette Muniz NP-C Primary Care Provider Active Start: October 29, 2023 End: October 29, 2023 Zhou Fischer MD Attending Provider Active St art: October 29, 2023 End: October 29, 2023 Physics Technician Relationship Specialty Start Date End Date Isauro Poe MD [address] [facility] [place] [address] (Fax) PCP - General Family Medicine 11/04/18 Wai Matson Jr. [address] [place] [phone] Referring Urology 04/23/18 Team Status: Inactive Member [...] May 02, 2024 End: May 02, 2024 Physics Technician Relationship Specialty Start Date End Date Isauro Poe MD [address] [facility] [place] [address] (Fax) PCP - General Family Medicine 11/04/18 Wai Matson Jr. [address] [place] [phone] Referring Urology 04/23/18 Physics Technician Relationship Specialty Start Date End Date Unallocated, Ronel Cain MD [address] [place] [address] PCP - General 01/28/23 Physics Technician Relationship Specialty Start Date End Date Isauro Poe MD (Fax) PCP - General 06/16/12 Team Status: Inactive Member Role Status Dates Danette Muniz NP-Nury Primary Care Provider Active Start: August 30, 2024 End: August 30, 2024 Zhou Fischer MD Attending Provider Active St art: August 30, 2024 End: August 30, 2024 Physics Technician Relationship Specialty Start Date End Date Isauro Poe MD (Fax) PCP - General 06/16/12 Physics Technician Relationship Specialty Start Date End Date Isauro Poe MD (Fax) PCP - General 06/16/12 Physics Technician Relationship Specialty Start Date End Date Isauro Poe MD (Fax) PCP - General 06/16/12 Team Status: Inactive Member Role Status Dates ALVAREZ EstebanC Primary Care Provider Active Start: October 05, 2024 End: October 05, 2024 Zhou Fischer MD Attending Provider Active St art: October 05, 2024 End: October 05, 2024 Physics Technician Relationship Specialty Start Date End Date Unallocated, Ronel Cain MD [address] [place] [address] PCP - General 01/28/23 Physics Technician Relationship Specialty Start Date End Date Unallocated, Ronel Cain MD [address] [place] [address] PCP - General 01/28/23 Physics Technician Relationship Specialty Start Date End Date Unallocated, Ronel Cain MD [address] [place] [address] PCP - General 01/28/23 Physics Technician Relationship Specialty Start Date End Date Unallocated, Ronel Cain MD [address] [place] [address] PCP - General 01/28/23 Physics Technician Relationship Specialty Start Date End Date Isauro Poe MD [address] [place] [address] PCP - General Family Medicine 11/04/18 [address] [facility] [place] [address] Referring Urology 04/23/18 Team Status: Inactive Member Role Status Dates Danette Muniz NP-Nury Primary Care Provider Active Start: December 13, 2024 End: December 13, 2024 NALINI Worthington Attending Provider Active Start: December 13, 2024 End: December 13, 2024 Team Status: Inactive Member Role Status Dates NALINI Esteban Attending Provider Active Start: January 03, 2025 End: January 03, 2025 Physics Technician Relationship Specialty Start Date End Date Danette Muniz APRN - [facility] [address] [facility] [place] [address] PCP - General 01/10/25 Physics Technician Relationship Specialty Start Date End Date Unallocated, Ronel Cain MD [address] [place] [address] PCP - General 01/28/23 Team Status: Inactive Member Role Status Dates NALINI Worthington Attending Provider Active Start: March 09, 2025 End: March 09, 2025 Source Comments (unrecognize d section and content) In the event this informatio n is protected by the Federal Confidentiality of Alcohol and Drug Abuse Patient Records regulations: The Federal rules restrict any use of the information to criminally investigate or prosecute any alcohol or drug abuse patient.[facility] the event this information is protected by the Federal Confidentiality of Alcohol and Drug Abuse Patient Records regulations: The Federal rules restrict any use of the information to criminally investigate or prosecute any alcohol or drug abuse patient.[facility] HospitalIn the event this information is protected by the Federal Confidentiality of Alcohol and Drug Abuse Patient Records regulations: The Federal rules restrict any use of the information to criminally investigate or prosecute any alcohol or drug abuse patient.[facility] HospitalIn the event this information is protected by the Federal Confidentiality of Alcohol and Drug Abuse Patient Records regulations: The Federal rules restrict any use of the information to criminally investigate or prosecute any alcohol or drug abuse patient.[facility] HospitalIn the event this information is protected by the Federal Confidentiality of Alcohol and Drug Abuse Patient Records regulations: The Federal rules restrict any use of the information to criminally investigate or prosecute any alcohol or drug abuse patient.[facility] HospitalIn the event this information is protected by the Federal Confidentiality of Alcohol and Drug Abuse Patient Records regulations: The Federal rules restrict any use of the information to criminally investigate or prosecute any alcohol or drug abuse patient.[facility] HospitalIn the event this information is protected by the Federal Confidentiality of Alcohol and Drug Abuse Patient Records regulations: The Federal rules restrict any use of the information to criminally investigate or prosecute any alcohol or drug abuse patient.[facility] HospitalIn the event this information is protected by the Federal Confidentiality of Alcohol and Drug Abuse Patient Records regulations: The Federal rules restrict any use of the information to criminally investigate or prosecute any alcohol or drug abuse patient.[facility] HospitalIn the event this information is protected by the Federal Confidentiality of Alcohol and Drug Abuse Patient Records regulations: The Federal rules restrict any use of the information to criminally investigate or prosecute any alcohol or drug abuse patient.[facility] HospitalIn the event this information is protected by the Federal Confidentiality of Alcohol and Drug Abuse Patient Records regulations: The Federal rules restrict any use of the information to criminally investigate or prosecute any alcohol or drug abuse patient.[facility] HospitalIn the event this information is protected by the Federal Confidentiality of Alcohol and Drug Abuse Patient Records regulations: The Federal rules restrict any use of the information to criminally investigate or prosecute any alcohol or drug abuse patient.[facility] HospitalIn the event this information is protected by the Federal Confidentiality of Alcohol and Drug Abuse Patient Records regulations: The Federal rules restrict any use of the information to criminally investigate or prosecute any alcohol or drug abuse patient.[facility] HospitalIn the event this information is protected by the Federal Confidentiality of Alcohol and Drug Abuse Patient Records regulations: The Federal rules restrict any use of the information to criminally investigate or prosecute any alcohol or drug abuse patient.[facility] HospitalIn the event this information is protected by the Federal Confidentiality of Alcohol and Drug Abuse Patient Records regulations: The Federal rules restrict any use of the information to criminally investigate or prosecute any alcohol or drug abuse patient.[facility] HospitalIn the event this information is protected by the Federal Confidentiality of Alcohol and Drug Abuse Patient Records regulations: The Federal rules restrict any use of the information to criminally investigate or prosecute any alcohol or drug abuse patient.[facility] HospitalIn the event this information is protected by the Federal Confidentiality of Alcohol and Drug Abuse Patient Records regulations: The Federal rules restrict any use of the information to criminally investigate or prosecute any alcohol or drug abuse patient.[facility] Goals (unrecognized section and content) Goals may be documented in a n alternate section Scheduled Active and Recently Administ ered Medications (unrecognized section and content) Medication Order 01/11/2025 01/12/2025 01/13/2025 amLODIPine (NORVASC) tablet 10 mg(Linked Group 1) 10 mg, Oral, DAILY, First dose on Thu01/10/25 at 1930, Until Discontinued, Hold for systolic blood pressure less than 110 0818 (Given - Provider: Rose Garber RN) 0918 (Given - Provider: Donita Arzate RN) 0840 (Given - Provider: Rachel Hollingsworth) bisacodyl (DULCOLAX) EC tablet 5 mg 5 mg, Oral, DAILY, First dose on Thu01/10/25 at 1930, Until Discontinued, Do not crush or break., Post-op 0818 (Given - Provider: Rose Garber RN) 0919 (Given - Provider: Donita Arzate, REGINO) 0839 (Given - Provider: Rachel Hollingsworth) ceFAZolin (ANCEF) 2,000 mg in sterile water 20 mL IV syringe (COMPLETED) 2,000 mg, IntraVENous, EVERY 8 HOURS, 2 doses, First dose on Thu01/10/25 at 2100, Last dose on Thu01/11/25 at 0500, Antimicrobial Indications: Surgical Prophylaxis, Administer over 5 mins. Reconstitute 2 g vial with 20 mL Sterile Water. Withdraw entire contents., Post-op 0458 (Given - Provider: Abril Mcduffie RN) finasteride (PROSCAR) tablet 5 mg 5 mg, Oral, DAILY, First dose on Thu01/10/25 at 1930, Until Discontinued, Women should not handle crushed or broken finasteride tablets when they are or may potentially be , due to potential risk to the fetus. 0818 (Given - Provider: Rose Garber RN) 09 (Given - Provider: Donita Arzate RN) 0839 (Given - Provider: Rachel Hollingsworth) folic acid (FOLVITE) tablet 1 mg 1 mg, Oral, DAILY, First dose on Thu01/11/25 at 1430, Until Discontinued 2029 (Given - Provider: Abril Mcduffie RN) 918 (Given - Provider: Donita Arzate RN) 0839 (Given - Provider: Rachel Hollingsworth) hydroxychloroquine (PLAQUENIL) tablet 200 mg 200 mg, Oral, 2 TIMES DAILY, First dose on Thu01/10/25 at 2100, Until Discontinued, Do not crush or divide film-coated tablets 0818 (Given - Provider: Rose Garber RN)2029 (Given - Provider: Abril Mcduffie, REGINO) 09 (Given - Provider: Donita Arzate RN)2042 (Given - Provider: Liss Castle RN) 0839 (Given - Provider: Rachel Hollingsworth)2100 (Due) lisinopril (PRINIVIL;ZESTRIL) tablet 20 mg(Linked Group 1) 20 mg, Oral, DAILY, First dose on Thu01/10/25 at 1930, Until Discontinued, Substituted for Benazepril (LOTENSIN). Hold for systolic blood pressure less than 110 0818 (Given - Provider: Rose Garber RN) 09 (Given - Provider: Donita Arzate RN) 0840 (Given - Provider: Rachel Hollingsworth) naloxegol (MOVANTIK) tablet 12.5 mg (CANCELED) 12.5 mg, Oral, DAILY BEFORE BREAKFAST, First dose on Thu01/12/25 at 0700, Until Discontinued, Administer on an empty stomach at least 1 hour prior to or 2 hours after the first meal of the day. Avoid consumption of grapefruit or grapefruit juice during treatment. 0534 (Given - Provider: Abril Mcduffie, REGINO) naloxegol (MOVANTIK) tablet 12.5 mg 12.5 mg, Oral, DAILY BEFORE BREAKFAST, First dose on Thu01/13/25 at 0700, Until Discontinued, Administer on an empty stomach at least 1 hour prior to or 2 hours after the first meal of the day. Avoid consumption of grapefruit or grapefruit juice during treatment. 0553 (Given - Provider: Liss Castle RN) pantoprazole (PROTONIX) tablet 40 mg 40 mg, Oral, DAILY BEFORE BREAKFAST, First dose on Thu01/11/25 at 0700, Until Discontinued, Do not crush or break. Substituted for Omeprazole (PRILOSEC). 0501 (Given - Provider: Abril Mcduffie RN) 0534 (Given - Provider: Abril Mcduffie RN) 0553 (Given - Provider: Liss Castle RN) polyethylene glycol (GLYCOLAX) packet 17 g 17 g, Oral, DAILY, First dose on Thu01/10/25 at 1915, Until Discontinued, Stir and dissolve one packet of powder (17 g) in any 4 to 8 ounces of beverage (cold, hot or room temperature) then drink, Post-op 0818 (Given - Provider: Rose Garber RN) 0920 (Given - Provider: Donita Arzate RN) 0840 (Given - Provider: Rachel Hollingsworth) sennosides-docusate sodium (SENOKOT-S) 8.6-50 MG tablet 1 tablet 1 tablet, Oral, 2 TIMES DAILY, First dose on Thu01/10/25 at 2100, Until Discontinued, Post-op 0818 (Given - Provider: Rose Garber RN)2029 (Given - Provider: Abril Mcduffie RN) 0918 (Given - Provider: Donita Arzate RN)204 (Given - Provider: Liss Castle RN) 0839 (Given - Provider: Rachel Hollingsworth)2100 (Due) sodium chloride flush 0.9 % injection 5-40 mL 5-40 mL, IntraVENous, EVERY 12 HOURS SCHEDULED (2 times per day), First dose on Thu01/10/25 at 2100, Until Discontinued, For Line Patency: Peripheral IV = 5 mL; Midline or Central Line = 10 mL/lumen. If following IV push medication, administer flush [...] Midline or Central Line = 20 mL/lumen, Post-op 0809 (Not Given - Provider: Rose Garber RN - Reason: IV Fluid Infusing)2029 (Given - Provider: Abril Mcduffie, REGINO) 0920 (Given - Provider: Donita Arzate RN)204 (Given - Provider: Liss Castle RN) 0841 (Given - Provider: Rachel Hollingsworth)2100 (Due) tamsulosin (FLOMAX) capsule 0.4 mg 0.4 mg, Oral, DAILY, First dose on Thu01/10/25 at 1930, Until Discontinued, Do not crush or break. Give 30 minutes after a full meal to limit risk of orthostatic hypotension/falls. 0818 (Not Given - Provider: Rose Garber RN - Reason: Medication not available - Comment: capsule broke) 0918 (Given - Provider: Donita Arzate RN) 0840 (Given - Provider: Rachel Hollingsworth) Continuous Medication Order 01/11/2025 01/12/2025 01/13/2025 0.9 % sodium chloride infusion IntraVENous, at 125 mL/hr, CONTINUOUS, Starting on Thu01/10/25 at 1915, Post-op 1235 (Stopped - Provider: Rose Garber RN) PRN Medication Order 01/11/2025 01/12/2025 01/13/2025 0.9 % sodium chloride infusion IntraVENous, at 5-250 mL/hr, PRN, if patient receiving piggyback infusions and maintenance fluids are not ordered OR KVO fluids to protect IV site / prevent frequent line interruptions/ long duration, Starting on Thu01/10/25 at 1845, For piggyback infusion, administer at same rate as piggyback for a total of 25 mL. Enter 25 mL into dose field and piggyback rate into rate field of order. If piggyback is infusing at a rate less than 100 mL/hr, enter 25 mL into dose field and 100 mL/hr into rate field of order. For KVO fluids, enter rate of 20 mL/hr or less into rate field of order., Post-op acetaminophen (TYLENOL) tablet 650 mg 650 mg, Oral, EVERY 6 HOURS PRN, Starting on Thu01/10/25 at 1643, Until Discontinued, Pain Mild (1-3) OR per patient request for pain score (4-10), Fever, Maximum dose of acetaminophen is 4000 mg from all sources in 24 hours., Post-op bisacodyl (DULCOLAX) suppository 10 mg 10 mg, Rectal, DAILY PRN, Starting on Thu01/10/25 at 1845, Until Discontinued, Constipation, Second line therapy for constipation, After 24 hours, if no result from first line PRN therapy, give second line therapy in combination with first line therapy., Post-op 1718 (Given - Provider: Donita Arzate RN) cyclobenzaprine (FLEXERIL) tablet 10 mg 10 mg, Oral, 3 TIMES DAILY PRN, Starting on Thu01/10/25 at 1616, Until Discontinued, Muscle spasms, Post-op magnesium hydroxide (MILK OF MAGNESIA) 400 MG/5ML suspension 30 mL 30 mL, Oral, DAILY PRN, Starting on Thu01/10/25 at 1845, Until Discontinued, Constipation, First line therapy for constipation., Post-op 2030 (Given - Provider: Abril Mcduffie RN) morphine (PF) injection 4 mg ()(Linked Group 2) 4 mg, IntraVENous, EVERY 2 HOURS PRN, Starting on Thu01/10/25 at 1845, Until Thu01/11/25 at 1844, Pain Severe (7-10), If oral and IV narcotics ordered, use oral first and only use IV if oral is ineffective or cannot take oral. Do Not give oral and IV within 1 hour of each other unless specifically ordered., Post-op 0218 (Given - Provider: Abril Mcduffie RN)0816 (Given - Provider: Rose Garber RN) ondansetron (ZOFRAN) injection 4 mg(Linked Group 3) 4 mg, IntraVENous, EVERY 6 HOURS PRN, Starting on Thu01/10/25 at 1845, Until Discontinued, Nausea, Vomiting, Administer if oral route cannot be used., Post-op 922 (Given - Provider: Rose Garber RN) 1718 (Given - Provider: Donita Arzate, RN) ondansetron (ZOFRAN-ODT) disintegrating tablet 4 mg(Linked Group 3) 4 mg, Oral, EVERY 8 HOURS PRN, Starting on Thu01/10/25 at 1845, Until Discontinued, Nausea, Vomiting, Post-op 922 (See Alternative - Provider: Rose Garber RN) 1718 (See Alternative - Provider: Donita Arzate, REGINO) oxyCODONE (ROXICODONE) immediate release tablet 10 mg(Linked Group 4) 10 mg, Oral, EVERY 6 HOURS PRN, Starting on Thu01/10/25 at 1643, Until Discontinued, Pain Severe (7-10), Post-op 06 (Given - Provider: Abril Mcduffie RN)112 (Given - Provider: Rose Garber RN) oxyCODONE (ROXICODONE) immediate release tablet 5 mg(Linked Group 4) 5 mg, Oral, EVERY 6 HOURS PRN, Starting on Thu01/10/25 at 1643, Until Discontinued, Pain Moderate (4-6) OR per patient request for pain score (7-10), Post-op 06 (See Alternative - Provider: Abril Mcduffie RN)1126 (See Alternative - Provider: Rose Garber RN) prochlorperazine (COMPAZINE) injection 10 mg 10 mg, IntraVENous, EVERY 6 HOURS PRN, Starting on Thu01/10/25 at 1952, Until Discontinued, Nausea, If administering IV push, administer at a maximum rate of 5 mg/minute. Patients should remain lying down following administration and be reassessed for relief of nausea and presence of hypotension. Patients should be assisted the first time they get up after administration. 0210 (Given - Provider: Abril Mcduffie RN)1126 (Given - Provider: Rose Garber RN) sodium chloride flush 0.9 % injection 5-40 mL 5-40 mL, IntraVENous, PRN, Starting on Thu01/10/25 at 1845, Until Discontinued, Line Care, After every IV line use, For Line Patency: Peripheral IV = 5 mL; Midline or Central Line = 10 mL/lumen. If following IV push medication, administer flush [...] Midline or Central Line = 20 mL/lumen, Post-op Linked Groups Order Group 1: amLODIPine (NORVASC) tablet 10 mgJump to med 10 mg, Oral, DAILY, First dose on Thu01/10/25 at 1930, Until Discontinued, Hold for systolic blood pressure less than 110 And lisinopril (PRINIVIL;ZESTRIL) tablet 20 mgJump to med 20 mg, Oral, DAILY, First dose on Thu01/10/25 at 1930, Until Discontinued, Substituted for Benazepril (LOTENSIN). Hold for systolic blood pressure less than 110 Group 2: morphine (PF) injection 2 mg () 2 mg, IntraVENous, EVERY 2 HOURS PRN, Starting on Thu01/10/25 at 1844, Until Thu01/11/25 at 184, Pain Moderate (4-6) OR per patient request for pain score (7- 10), If oral and IV narcotics ordered, use oral first and only use IV if oral is ineffective or cannot take oral. Do Not give oral and IV within 1 hour of each other unless specifically ordered., Post-op Or morphine (PF) injection 4 mg ()Jump to med 4 mg, IntraVENous, EVERY 2 HOURS PRN, Starting on Thu01/10/25 at 184, Until Thu01/11/25 at 1844, Pain Severe (7-10), If oral and IV narcotics ordered, use oral first and only use IV if oral is ineffective or cannot take oral. Do Not give oral and IV within 1 hour of each other unless specifically ordered., Post-op Group 3: ondansetron (ZOFRAN-ODT) disintegrating tablet 4 mgJump to med 4 mg, Oral, EVERY 8 HOURS PRN, Starting on Thu01/10/25 at 1845, Until Discontinued, Nausea, Vomiting, Post-op Or ondansetron (ZOFRAN) injection 4 mgJump to med 4 mg, IntraVENous, EVERY 6 HOURS PRN, Starting on Thu01/10/25 at 1845, Until Discontinued, Nausea, Vomiting, Administer if oral route cannot be used., Post- op Group 4: oxyCODONE (ROXICODONE) immediate release tablet 5 mgJump to med 5 mg, Oral, EVERY 6 HOURS PRN, Starting on Thu01/10/25 at 1643, Until Discontinued, Pain Moderate (4-6) OR per patient request for pain score (7-10), Post-op Or oxyCODONE (ROXICODONE) immediate release tablet 10 mgJump to med 10 mg, Oral, EVERY 6 HOURS PRN, Starting on Thu01/10/25 at 1643, Until Discontinued, Pain Severe (7-10), Post-op FOR RECORDS PERTAINING TO PATIENTS WHO ARE [...] BE BASED ON THE PRIMARY CLINICAL RECORDS. [facility] [employer] [facility]. provides no warranty or guarantee of the accuracy or completeness of information in this document.
== END 2025-04-06 09:20 | disposition home or self-care (01) ==
LOC: US 09:19
PROVIDERS: PCP Nurse Practitioner Family; Visit Provider Family Medicine
DX: R60.9 Edema, unspecified (principal); I87.2 Venous insufficiency (chronic) (peripheral)
CPT/HCPCS: 93970